=== PATIENT | male | born 1965 | race Caucasian/White ===

== ENCOUNTER → 2019-12-03 08:24 | Outpatient (CLI) | payer OTHER, SELFPAY ==
[2019-11-28 08:59] VITALS: BMI 38.2
--- NOTE | 2019-12-03 08:41 | RAD_ITS ---
STUDY: X-RAY - LEFT FOOT CLINICAL: Male, 54 years old. ulcer in left foot. patient states numbness. TECHNIQUE: 3 view(s) of the foot. COMPARISON: 03-27-12. FINDINGS: No definite acute abnormality. 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 Since previous exam there has been thickening of the distal shaft of the fourth metatarsal consistent with healed fracture. No definite fractures, dislocations, or focal destructive lesions. No significant degenerative changes. No gross acute abnormality of the soft tissues. RAD/Foot min 3 Views IMPRESSION: No definite acute abnormality. Electronically Signed: Kip Carver MD at 17:58 EDT , Service support ,
--- NOTE | 2019-12-03 08:50 | RAD_ITS ---
STUDY: X-RAY - RIGHT FOOT CLINICAL: Male, 54 years old. ulcer in right foot. patient states numbess TECHNIQUE: 3 view(s) of the foot. COMPARISON: None. FINDINGS: Normal talus, calcaneus, and tarsal bones. Normal visualized subtalar, talonavicular, calcaneocuboid, tarsal and tarsometatarsal articulations. Normal metatarsi. There is degenerative arthrosis of the metatarsophalangeal joint of the hallux . Normal tibial and fibular sesamoid bones. Normal interphalangeal joint of the great toe. Normal phalanges of the great toe. Normal second through fifth metatarsophalangeal joints. Normal interphalangeal joints and phalanges of the lesser toes. The soft tissue structures are unremarkable. There is no demonstrated fracture. RAD/Foot min 3 Views IMPRESSION: No acute fractures or dislocations. Degenerative changes of the first metatarsophalangeal joint. Electronically Signed: Kip Carver MD at 19:24 EDT , Service support ,
[2019-12-03 10:05] LABS: Absolute Lymphocyte Count 1.97 X10^3/uL (0.83-4.51); Basophil# 0.08 X10^3/uL; Eosinophil# 0.29 X10^3/uL; Eosinophils% 3.6 % (0-5); Hematocrit 47.2 % (40-54); Hemoglobin 15.3 g/dL (13.0-16.5); Lymphocyte # 1.97 X10^3/ul (4.0); Lymphocyte % 24.7 % (19-41); Mean Corp Hgb Conc 32.4 g/dL (32-36); Mean Corpuscular Hgb 29.4 pg (27.0-32.0); Mean Corpuscular Volume 90.6 fL (80-94); Mean Platelet Vol. 9.6 fl (6.2-12.0); Monocyte# 0.59 X10^3/uL; Monocyte% 7.4 % (0-10); NRBC Flagged by Analyzer 0 % (0-5); Neutrophil # 4.97 X10^3/uL (2.7-7.7); Neutrophil % 62.4 % (47-70); Platelet Count 246 K/mm3 (150-450); RBC Distribution Width CV 12.8 % (11.6-14.6); RBC Distribution Width SD 41.4 fl (35.1-43.9); Red Blood Count 5.21 M/mm3 (4.6-6.2)
[2019-12-03 10:36] LABS: Hemoglobin A1c 7.9 % (3.8-5.6)
[2019-12-03 10:37] LABS: ALB/GLOB Ratio 1.1 RATIO (0.9-2.4); AST(SGOT) 23 U/L (15-37); Alanine Aminotransfer ALT/SGPT 40 U/L (16-61); Albumin, Serum 4.1 g/dL (3.2-5.0); Alkaline Phosphatase 123 U/L (45-117); Anion Gap 4 (5-15); BUN 30 mg/dL (7-18); Calcium,Total 9.3 mg/dL (8.5-10.1); Chloride 104 mmol/L (98-107); Creatinine, Serum 1.43 mg/dL (0.70-1.30); EST Glomerular Filtration Rate 55 mL/min (>60); Est Glom Filt Rate - Afr Amer 67 mL/min (>60); Globulin 3.8 g/dL (2.2-4.2); Glucose 142 mg/dL (74-106); Potassium 4.7 mmol/L (3.5-5.1); Protein, Total 7.9 g/dL (6.4-8.2); Sodium Level 137 mmol/L (136-145)
== END ==
PROVIDERS: PCP Student in an Organized Health Care Education/Training Program; Referring Provider Podiatrist; Visit Provider Podiatrist
DX: E11.621 Type 2 diabetes mellitus with foot ulcer (principal); L97.529 Non-pressure chronic ulcer of other part of left foot with unspecified severity; L97.519 Non-pressure chronic ulcer of other part of right foot with unspecified severity
CPT/HCPCS: 36415; 73630; 80053; 83036; 85025

== ENCOUNTER 2019-12-05 14:00 | Outpatient (RCR) | payer OTHER, SELFPAY ==
[2019-01-01 09:09] VITALS: BMI 38.5
[2019-11-28 08:59] VITALS: BP 169/78; PULSE 90; RESP 18; TEMP 36.1; BMI 38.2
--- NOTE | 2019-11-28 09:33 | HP.PCM_ITS ---
(1) Ulcer of right foot with fat layer exposed Status: Acute Code(s): L97.512 - Non-pressure chronic ulcer of other part of right foot with fat layer exposed (2) Ulcer of left foot with fat layer exposed Status: Acute Code(s): L97.522 - Non-pressure chronic ulcer of other part of left foot with fat layer exposed (3) Type 2 diabetes mellitus with diabetic polyneuropathy Status: Acute Code(s): E11.42 - Type 2 diabetes mellitus with diabetic polyneuropathy (4) Venous insufficiency Status: Acute Code(s): I87.2 - Venous insufficiency (chronic) (peripheral) (5) Leg edema Status: Acute Code(s): R60.0 - Localized edema History of Present Illness Date of Service: 12/01/19 Chief Complaint: Blisters on both feet History of Wound: 54-year-old male presents to the wound healing center for wounds on both forefeet. He relates that he wore sandals on November 082019 and developed blisters. These drained and he has been treating them with antibiotic ointment and basic dressing. He is eager to return to work. These are uncomfortable. He denies current fever, chill, nausea, vomiting. He denies other traumatic incident or burn. He does have neuropathy with some lack of sensation to his feet. He does have some cramping in his legs when he walks and is not clear if this is claudication. He does have some lower extremity edema. He was referred from the foot and ankle center. Past Medical History Past Medical History: Chronic Problems (Last Reviewed 01/01/19 @ 09:04 by JEFFREY Swanson) Type II diabetes mellitus (Chronic) History of seizures as a child (Chronic) Hypertension (Chronic) Obesity (Chronic) Past Medical History: Diabetes with neuropathy, pancreatitis history, h ypertension Surgical History: cholecystectomy Allergies/Adverse Reactions: Allergies acetaminophen [From Percocet] Adverse Reaction (Verified 12/26/18 15:23) Nausea oxycodone [From Percocet] Adverse Reaction (Verified 12/26/18 15:23) Nausea Home Medications: Ambulatory Orders Medication Instructions Recorded Insulin Detemir [Levemir FlexPen] 32 units SC QHS 10/01/14 Insulin Lispro [Humalog KwikPen] 8 unit SQ PRN PRN 10/01/14 Nifedipine [Nifedipine ER] 90 mg PO DAILY 10/01/14 Ramipril [Altace] 10 mg PO DAILY 10/01/14 Ascorbic Acid [Vitamin C] 500 mg PO DAILY 04/29/17 Aspirin [Aspir-Low] 81 mg PO DAILY 04/29/17 Atorvastatin Calcium [Lipitor] 10 mg PO DAILY 04/29/17 Diphenhydramine HCl [Benadryl 25 mg PO PRN PRN 04/29/17 Allergy] Dulaglutide [Trulicity] 0.75 mg SQ ENCINAS 04/29/17 Multivitamin [Multiple Vitamins] 1 ea PO DAILY 04/29/17 - Family History Maternal No pertinent history Paternal No pertinent history Smoking Status: Never smoker Review of Systems Constitutional: Denies: Chills, Fever, Fatigue Cardiovascular: Denies: Chest Pain Respiratory: Denies: Cough, Shortness of Breath Gastrointestinal: Denies: Nausea, Vomiting Musculoskeletal: Reports: Foot Pain. Denies: Leg Pain Skin: Reports: Skin Changes, Wounds Neurological: Reports: Numbness. Denies: Incoordination - Physical Exam Vital Signs Temp Pulse Resp BP 97 F L 90 18 169/78 H 11/28/19 08:59 11/28/19 08:59 11/28/19 08:59 11/28/19 08:59 General: Alert, Oriented x3, Cooperative, No apparent distress HEENT: Atraumatic Extremities: No cyanosis, Capillary Refill Less than 3 Seconds, No Calf Tenderness - Negative Nash and Dorsey sign bilateral, Diminished Peripheral Pulses - Weak DP bilateral and nonpalpable PT bilateral, Edema - Bilateral lower extremity with some mild hyperpigmentation. Lack of hair to lower two thirds of leg and feet, - - Bilateral lower extremity compartments remain soft. Active range of motion digits x10 noted. Active range of motion normal to ankle bilateral. Skin: Ulcer/ Wound - No purulence, erythema, streaking, odor, infection. There is fibrous granular ulcers that appear dry to multiple sites on bilateral forefoot. There is no deep exposed bone or joint. The skin is atrophic and hairless. There is no necrosis or eschar. Wound Measurements and Assessment WC - Nurse 1 - General Ulcer Measurement Start: 11/28/19 08:12 Freq: Status: Active Protocol: Activity Type Activity Date Activity User E-Sign Co-Sign Detail Recorded Client Recorded Date Recorded By Document 11/28/19 08:46 RB [id number] 11/28/19 08:57 RB 11/28/19 08:46 Wound Center Nurse 1 [Ulcer Assessment] 2. left hallux -Combined with other wound No -Current Size (cm) - Length 4 -Current Size (cm) - Width 11 -Current Size (cm) - Depth 0.1 -Total Square Cm 44 -Photo Taken Yes -Tunneling No -Undermining/Tunneling No -Circular Undermining No -Exudate Amt Medium -Exudate Type Serosanguineous -Wound Margin Flat & Intact -Granulation Amt Small (1-33%) -Granulation Quality [place] -Slough/Fibrin Yes -Necrosis Amt Large (67-100%) -Necrotic Tissue Type Adherent Slough -Structure Exposed N/A -Texture (Susana-wound Skin Appearance) Excoriation -Moisture (Susana-wound Skin Appearance Maceration ) -Color (Susana-wound Skin Appearance) Assessed -Temperature (Susana-wound Skin No Abnormality Appearance) (Pt Warm) -Tenderness on Palpation (Susana-wound No Skin Appearance) -Ulcer Cleansing Wound Cleanser -Foul Odor after Cleansing No -Anesthetic Used 4% Lidocaine Solution 1. R Great toe dorsal -Combined with other wound No -Current Size (cm) - Length 0.6 -Current Size (cm) - Width 0.7 -Current Size (cm) - Depth 0.1 -Total Square Cm 0.42 -Photo Taken Yes -Tunneling No -Undermining/Tunneling No -Circular Undermining No -Exudate Amt Small -Exudate Type Serosanguineous -Wound Margin Flat & Intact -Granulation Amt Medium (34-66%) -Granulation Quality [place] -Slough/Fibrin Yes -Necrosis Amt Small (1-33%) -Necrotic Tissue Type Adherent Slough -Structure Exposed N/A -Texture (Susana-wound Skin Appearance) Assessed -Moisture (Susana-wound Skin Appearance Assessed ) -Color (Susana-wound Skin Appearance) Assessed -Temperature (Susana-wound Skin No Abnormality Appearance) (Pt Warm) -Tenderness on Palpation (Susana-wound No Skin Appearance) -Ulcer Cleansing Wound Cleanser -Foul Odor after Cleansing No -Anesthetic Used 4% Lidocaine Solution [Edema Assessment] -Lower Limb Edema Present Yes -Right Calf (cm) 42 -Right Ankle (cm) 24.5 -Left Calf (cm) 40.5 -Left Ankle (cm) 23.5 WC - Nurse 2 - General Ulcer CM Notes Start: 11/28/19 08:12 Freq: Status: Active Protocol: Activity Type Activity Date Activity User E-Sign Co-Sign Detail Recorded Client Recorded Date Recorded By Document 11/28/19 09:20 [email or web address] [id number] 11/28/19 09:29 KASEY 11/28/19 09:20 Wound Center Nurse 2 [Procedure/Treatment] 6-left 5th toe -Time 09:28 -Correct Patient Yes -Correct Side, Site, Position Yes -Correct Procedure Yes -Procedure Performed Yes -Type of Procedure Debridement -Clinical Debridement Subcutaneous -Post Debridement Size (cm) - Length 2.3 -Post Debridement Size (cm) - Width 1.8 -Post Debridement Size (cm) - Depth 0.1 -Total Square (cm) 4.14 -Wound/Ulcer Outcome Not Healed -Ulcer Cleansing Rinsed/ Irrigated with Saline -Foul Odor after Cleansing No -Bioengineered Tissue No -Bleeding Controlled with Pressure -Offloading Yes -Type of Offloading Surgical Shoe -Treatment Response Procedure Tolerated Well 5-left 4th toe -Time 09:27 -Correct Patient Yes -Correct Side, Site, Position Yes -Correct Procedure Yes -Procedure Performed Yes -Type of Procedure Debridement -Clinical Debridement Subcutaneous -Post Debridement Size (cm) - Length 2.5 -Post Debridement Size (cm) - Width 1.8 -Post Debridement Size (cm) - Depth 0.1 -Total Square (cm) 4.50 -Wound/Ulcer Outcome Not Healed -Ulcer Cleansing Rinsed/ Irrigated with Saline -Foul Odor after Cleansing No -Bioengineered Tissue No -Bleeding Controlled with Pressure -Offloading Yes -Type of Offloading Surgical Shoe -Treatment Response Procedure Tolerated Well 4-left 3rd toe -Time 09:27 -Correct Patient Yes -Correct Side, Site, Position Yes -Correct Procedure Yes -Procedure Performed Yes -Type of Procedure Debridement -Clinical Debridement Subcutaneous -Post Debridement Size (cm) - Length 3.6 -Post Debridement Size (cm) - Width 1.9 -Post Debridement Size (cm) - Depth 0.1 -Total Square (cm) 6.84 -Wound/Ulcer Outcome Not Healed -Ulcer Cleansing Rinsed/ Irrigated with Saline -Foul Odor after Cleansing No -Bioengineered Tissue No -Bleeding Controlled with Pressure -Offloading Yes -Type of Offloading Surgical Shoe -Treatment Response Procedure Tolerated Well 3-left 2nd toe -Time 09:26 -Correct Patient Yes -Correct Side, Site, Position Yes -Correct Procedure Yes -Procedure Performed Yes -Type of Procedure Debridement -Clinical Debridement Subcutaneous -Post Debridement Size (cm) - Length 3.4 -Post Debridement Size (cm) - Width 1.7 -Post Debridement Size (cm) - Depth 0.1 -Total Square (cm) 5.78 -Wound/Ulcer Outcome Not Healed -Ulcer Cleansing Rinsed/ Irrigated with Saline -Foul Odor after Cleansing No -Bioengineered Tissue No -Bleeding Controlled with Pressure -Offloading Yes -Type of Offloading Surgical Shoe -Treatment Response Procedure Tolerated Well 2. left hallux -Time 09:22 -Correct Patient Yes -Correct Side, Site, Position Yes -Correct Procedure Yes -Procedure Performed Yes -Type of Procedure Debridement -Clinical Debridement Subcutaneous -Post Debridement Size (cm) - Length 2.2 -Post Debridement Size (cm) - Width 2.5 -Post Debridement Size (cm) - Depth 0.1 -Total Square (cm) 5.50 -Wound/Ulcer Outcome Not Healed -Ulcer Cleansing Rinsed/ Irrigated with Saline -Foul Odor after Cleansing No -Bioengineered Tissue No -Bleeding Controlled with Pressure -Offloading Yes -Type of Offloading Surgical Shoe -Treatment Response Procedure Tolerated Well 1. R Great toe dorsal -Time 09:25 -Correct Patient Yes -Correct Side, Site, Position Yes -Correct Procedure Yes -Procedure Performed Yes -Type of Procedure Debridement -Clinical Debridement Subcutaneous -Post Debridement Size (cm) - Length 0.7 -Post Debridement Size (cm) - Width 0.7 -Post Debridement Size (cm) - Depth 0.1 -Total Square (cm) 0.49 -Wound/Ulcer Outcome Not Healed -Ulcer Cleansing Rinsed/ Irrigated with Saline -Foul Odor after Cleansing No -Bioengineered Tissue No -Bleeding Controlled with Pressure -Offloading Yes -Type of Offloading Surgical Shoe -Treatment Response Procedure Tolerated Well [See Physician Procedure note for Specifics] Pain Scale: 0-10 Numeric [Pain] -Is Patient Pain Free? Yes Musculoskeletal: No Tenderness to Palpation of Joints or Extremities, Muscle Wasting Neurological: - - Lack of normal epicritic sensation to light touch is consistent with his neuropathy status Psych/Mental Status: Normal Affect, Appropriate Debridement Note Post-Debridement Measurements/Treatment WC - Nurse 2 - General Ulcer CM Notes Start: 11/28/19 08:12 Freq: Status: Active Protocol: Activity Type Activity Date Activity User E-Sign Co-Sign Detail Recorded Client Recorded Date Recorded By Document 11/28/19 09:20 [email or web address] [id number] 11/28/19 09:29 KASEY 11/28/19 09:20 Wound Center Nurse 2 6-left 5th toe -Time 09:28 -Correct Patient Yes -Correct Side, Site, Position Yes -Correct Procedure Yes -Procedure Performed Yes -Type of Procedure Debridement -Clinical Debridement Subcutaneous -Post Debridement Size (cm) - Length 2.3 -Post Debridement Size (cm) - Width 1.8 -Post Debridement Size (cm) - Depth 0.1 -Total Square (cm) 4.14 -Wound/Ulcer Outcome Not Healed -Ulcer Cleansing Rinsed/ Irrigated with Saline -Foul Odor after Cleansing No -Bioengineered Tissue No -Bleeding Controlled with Pressure -Offloading Yes -Type of Offloading Surgical Shoe -Treatment Response Procedure Tolerated Well 5-left 4th toe -Time 09:27 -Correct Patient Yes -Correct Side, Site, Position Yes -Correct Procedure Yes -Procedure Performed Yes -Type of Procedure Debridement -Clinical Debridement Subcutaneous -Post Debridement Size (cm) - Length 2.5 -Post Debridement Size (cm) - Width 1.8 -Post Debridement Size (cm) - Depth 0.1 -Total Square (cm) 4.50 -Wound/Ulcer Outcome Not Healed -Ulcer Cleansing Rinsed/ Irrigated with Saline -Foul Odor after Cleansing No -Bioengineered Tissue No -Bleeding Controlled with Pressure -Offloading Yes -Type of Offloading Surgical Shoe -Treatment Response Procedure Tolerated Well 4-left 3rd toe -Time 09:27 -Correct Patient Yes -Correct Side, Site, Position Yes -Correct Procedure Yes -Procedure Performed Yes -Type of Procedure Debridement -Clinical Debridement Subcutaneous -Post Debridement Size (cm) - Length 3.6 -Post Debridement Size (cm) - Width 1.9 -Post Debridement Size (cm) - Depth 0.1 -Total Square (cm) 6.84 -Wound/Ulcer Outcome Not Healed -Ulcer Cleansing Rinsed/ Irrigated with Saline -Foul Odor after Cleansing No -Bioengineered Tissue No -Bleeding Controlled with Pressure -Offloading Yes -Type of Offloading Surgical Shoe -Treatment Response Procedure Tolerated Well 3-left 2nd toe -Time 09:26 -Correct Patient Yes -Correct Side, Site, Position Yes -Correct Procedure Yes -Procedure Performed Yes -Type of Procedure Debridement -Clinical Debridement Subcutaneous -Post Debridement Size (cm) - Length 3.4 -Post Debridement Size (cm) - Width 1.7 -Post Debridement Size (cm) - Depth 0.1 -Total Square (cm) 5.78 -Wound/Ulcer Outcome Not Healed -Ulcer Cleansing Rinsed/ Irrigated with Saline -Foul Odor after Cleansing No -Bioengineered Tissue No -Bleeding Controlled with Pressure -Offloading Yes -Type of Offloading Surgical Shoe -Treatment Response Procedure Tolerated Well 2. left hallux -Time 09:22 -Correct Patient Yes -Correct Side, Site, Position Yes -Correct Procedure Yes -Procedure Performed Yes -Type of Procedure Debridement -Clinical Debridement Subcutaneous -Post Debridement Size (cm) - Length 2.2 -Post Debridement Size (cm) - Width 2.5 -Post Debridement Size (cm) - Depth 0.1 -Total Square (cm) 5.50 -Wound/Ulcer Outcome Not Healed -Ulcer Cleansing Rinsed/ Irrigated with Saline -Foul Odor after Cleansing No -Bioengineered Tissue No -Bleeding Controlled with Pressure -Offloading Yes -Type of Offloading Surgical Shoe -Treatment Response Procedure Tolerated Well 1. R Great toe dorsal -Time 09:25 -Correct Patient Yes -Correct Side, Site, Position Yes -Correct Procedure Yes -Procedure Performed Yes -Type of Procedure Debridement -Clinical Debridement Subcutaneous -Post Debridement Size (cm) - Length 0.7 -Post Debridement Size (cm) - Width 0.7 -Post Debridement Size (cm) - Depth 0.1 -Total Square (cm) 0.49 -Wound/Ulcer Outcome Not Healed -Ulcer Cleansing Rinsed/ Irrigated with Saline -Foul Odor after Cleansing No -Bioengineered Tissue No -Bleeding Controlled with Pressure -Offloading Yes -Type of Offloading Surgical Shoe -Treatment Response Procedure Tolerated Well Pain Scale: 0-10 Numeric Is Patient Pain Free? Yes Assessment/Plan Assessment: Ulcer right hallux fat layer exposed, no infection. Ulcer left hallux, second, third, fourth, fifth dorsal toes with fat layer exposed, no infection. Diabetes with neuropathy. Peripheral vascular disease work-up in process. Venous insufficiency work-up in process. Bilateral lower extremity edema. Malnutrition suspected Plan: I reviewed and discussed his case. I reviewed his prior documentation from the foot and ankle center and the referral is appreciated. Subcutaneous excisional debridement was performed as noted in the clinical panel. This was performed to remove fibrous, devitalized subcutaneous, biofilm, and slough tissue. Pressure was applied to maintain hemostasis. I recommend strict offloading with surgical shoe use. He has already been fitted with these devices and presents with them today. He is reassured there are no local signs of infection. He will monitor for signs of redness, streaking, or other illness. I would like to obtain an x-ray to evaluate for any underlying contributing conditions. An order was provided. I also recommend additional diagnostic data including labs (CBC, CMP, hemoglobin A1c), noninvasive vascular lower extremity studies, venous Doppler with reflux evaluation. To control edema with Tubigrip. To wash daily with soap and water and to change dressing with silver product whether that is silver cell or Aquacel Ag. He understands additional advanced wound healing products or other wound products recommendations will be implemented pending his initial progress and diagnostic data results. I would like to see him on a weekly basis. To return to clinic at the wound healing center next week. I answered all his questions.
--- NOTE | 2019-12-05 12:51 | VDLE_ITS ---
Reason For Study: PVD RIGHT LEFT CFV is compressible, spontaneous, phasic, CFV is compressible, spontaneous, phasic, competent and demonstrates normal competent, and demonstrates normal augmentation. augmentation. FV is compressible, spontaneous, phasic, FV is compressible, spontaneous, phasic, competent and demonstrates normal competent and demonstrates normal augmentation. augmentation. POP V is compressible, spontaneous, phasic, POP V is compressible, spontaneous, phasic, competent and demonstrates normal competent and demonstrates normal augmentation. augmentation. T/P Trunk is compressible. T/P Trunk is compressible. PTV is compressible. PTV is compressible. RT PerV is compressible. LT PerV is compressible. SFJ is competent and measures 0.69 x 0.71 cm. SFJ is competent and measures 0.77 x 0.76 cm. GSV proximal thigh measures 0.43 x 0.43 cm. GSV proximal thigh measures 0.54 x 0.59 cm. GSV above knee is INCOMPETENT for greater GSV at knee measures 0.54 x 0.57 cm. than 0.5 seconds. GSV INCOMPETENT throughout for greater than GSV at knee measures 0.35 x 0.36 cm. 0.5 seconds. GSV below knee is competent. SSV at junction is competent and measures SSV at junction is competent and measures 0.27 x 0.26 cm. 0.42 x 0.45 cm. Procedure Exam performed in department. A preliminary report was called and/or faxed to . Interpretation Summary Deep veins of the lower extremities are bilaterally patent and compressible segmentally. There is no evidence of deep vein thrombosis on either side. Valvular competence appears intact within the proximal deep venous systems bilaterally. The great saphenous veins appear bilaterally patent and compressible segmentally. Sapheno-femoral junctions are bilaterally competent . The right great saphenous vein appears incompetent above the knee. The right great saphenous vein appears competent below the knee. The left great saphenous vein appears segmentally incompetent. Small saphenous veins are patent and competent bilaterally. Ordering Physician: Haylie Szymanski Referring Physician: Gerald Tee Performed By: Federica Hart RVT
--- NOTE | 2019-12-05 12:52 | ART_ITS ---
Reason For Study: PVD Procedure A bilateral lower extremity continuous wave Doppler with analog waveform analysis,segmental pressures,and ankle brachial indexes without exercise. Left Segmental Pressures Left brachial= 153mmHg. Left posterior tibial artery = 150mmHg. Left dorsalis pedis artery = 160mmHg. The left dorsalis pedis waveforms are triphasic. The left posterior tibial artery waveforms are triphasic. Right Segmental Pressures Right brachial= 154mmHg. Right posterior tibial artery = >254mmHg. Right dorsalis pedis artery = >254mmHg. Right digit = 87 mmHg. The right dorsalis pedis waveforms are triphasic. The right posterior tibial artery waveforms are triphasic. Indices The right ankle brachial index by the dorsalis pedis is NC. The right ankle brachial index by the posterior tibial artery is NC. The right digital-brachial index is 0.56. The left ankle brachial index by the dorsalis pedis is 1.04. The left ankle brachial index by the posterior tibial artery is 0.97. Interpretation Summary Triphasic Doppler waveforms are noted at ankle level bilaterally. Pulse-volume recording waveform amplitudes appear diminished at digital level on the right, and not evaluated at digital level on the left due to the presence of a bandage. Pulse-volume recordings appear satisfacory at all other levels bilaterally. The resting right ankle-brachial index could not be determined due to the non- compressibility of the vasculature. The resting left ankle-brachial index is normal. The right digital-brachial index is mildly diminished. The left digital-brachial index was not determined due to the presence of a bandage. There is evidence of arterial calcification at ankle level on the right. Arterial flow appears normal at ankle level bilaterally. There is evidence of mild, distal, small-vessel arterial occlusive disease at digital level on the right. Digital flow was not assessed on the left due to the presence of a bandage. Ordering Physician: Haylie Szymanski Referring Physician: Gerald Tee Performed By: Federica Hart RVT and Student
[2019-12-05 14:30] VITALS: BP 150/72; PULSE 108; RESP 18; TEMP 36.8; BMI 38.2
--- NOTE | 2019-12-05 16:38 | PCM.WC.PN ---
(1) Ulcer of right foot with fat layer exposed Status: Chronic Code(s): L97.512 - Non-pressure chronic ulcer of other part of right foot with fat layer exposed (2) Ulcer of left foot with fat layer exposed Status: Chronic Code(s): L97.522 - Non-pressure chronic ulcer of other part of left foot with fat layer exposed (3) Type 2 diabetes mellitus with diabetic polyneuropathy Status: Acute Code(s): E11.42 - Type 2 diabetes mellitus with diabetic polyneuropathy (4) Venous insufficiency Status: Chronic Code(s): I87.2 - Venous insufficiency (chronic) (peripheral) (5) Leg edema Status: Chronic Code(s): R60.0 - Localized edema (6) Other specified peripheral vascular diseases Status: Suspected Code(s): I73.89 - Other specified peripheral vascular diseases Type of Wound Date of Service: 12/05/19 Chief Complaint: Blisters on both feet History of Wound: 54-year-old male presents to the wound healing center for wounds on both forefeet. He relates that he wore sandals on November 082019 and developed blisters. He denies fever, chill, nausea, vomiting. He has been doing the dressings as advised. He tries to wears offloading open toed surgical shoes at home. He is able to return to work request a work note today. He has not short-term disability options. He obtain his lab work, x-rays, and vascular studies as advised. He would like to review the results. Progress of Wound: Healed right. Left improving - Physical Exam Vital Signs Temp Pulse Resp BP 98.2 F 108 H 18 150/72 H 12/05/19 14:30 12/05/19 14:30 12/05/19 14:30 12/05/19 14:30 General: Alert, Oriented x3, Cooperative, No apparent distress HEENT: Atraumatic Extremities: No cyanosis, Capillary Refill Less than 3 Seconds, No Calf Tenderness, Diminished Peripheral Pulses, Edema - Mild bilateral lower extremity Skin: Ulcer/ Wound - No purulence, erythema, streaking, odor, infection. The adjacent skin is hairless and atrophic. There is full epithelialization to the ulcer on the right foot. The left foot ulcers on each toe have granular and fibrous spaces with no joint or bone exposures. No necrosis or eschar. Wound Measurements and Assessment WC - Nurse 1 - General Ulcer Measurement Start: 11/28/19 08:12 Freq: Status: Active Protocol: Activity Type Activity Date Activity User E-Sign Co-Sign Detail Recorded Client Recorded Date Recorded By Document 12/05/19 14:30 [facility] [id number] 12/05/19 14:42 [facility] 12/05/19 14:30 Wound Center Nurse 1 [Ulcer Assessment] 6-left 5th toe -Combined with other wound No -Current Size (cm) - Length 2.4 -Current Size (cm) - Width 1.3 -Current Size (cm) - Depth 0.2 -Total Square Cm 3.12 -Photo Taken No -Epithelialization Small 1-33% -Tunneling No -Undermining/Tunneling No -Circular Undermining No -Exudate Amt Small -Exudate Type Serosanguineous -Wound Margin Distinct, Outline Attached -Granulation Amt Medium (34-66%) -Granulation Quality [place] -Slough/Fibrin Yes -Necrosis Amt Medium (34-66%) -Necrotic Tissue Type Adherent Slough -Texture (Susana-wound Skin Appearance) Assessed, Scarring -Moisture (Susana-wound Skin Appearance Assessed, ) Maceration -Color (Susana-wound Skin Appearance) Assessed,Palor -Temperature (Susana-wound Skin No Abnormality Appearance) (Pt Warm) -Tenderness on Palpation (Susana-wound No Skin Appearance) -Ulcer Cleansing Rinsed/ Irrigated with Saline -Foul Odor after Cleansing No -Anesthetic Used 5% Lidocaine Gel 5-left 4th toe -Combined with other wound No -Current Size (cm) - Length 2.7 -Current Size (cm) - Width 1.8 -Current Size (cm) - Depth 0.2 -Total Square Cm 4.86 -Photo Taken No -Epithelialization None Present -Tunneling No -Undermining/Tunneling No -Circular Undermining No -Exudate Amt Small -Exudate Type Serosanguineous -Wound Margin Distinct, Outline Attached -Granulation Amt Medium (34-66%) -Granulation Quality [place] -Slough/Fibrin Yes -Necrosis Amt Medium (34-66%) -Necrotic Tissue Type Adherent Slough -Texture (Susana-wound Skin Appearance) Assessed, Scarring -Moisture (Susana-wound Skin Appearance Assessed, ) Maceration -Color (Susana-wound Skin Appearance) Assessed,Palor -Temperature (Susana-wound Skin No Abnormality Appearance) (Pt Warm) -Tenderness on Palpation (Susana-wound No Skin Appearance) -Ulcer Cleansing Rinsed/ Irrigated with Saline -Foul Odor after Cleansing No -Anesthetic Used 5% Lidocaine Gel 4-left 3rd toe -Combined with other wound No -Current Size (cm) - Length 2.6 -Current Size (cm) - Width 1.6 -Current Size (cm) - Depth 0.2 -Total Square Cm 4.16 -Photo Taken No -Epithelialization None Present -Tunneling No -Undermining/Tunneling No -Circular Undermining No -Exudate Amt Small -Exudate Type Serosanguineous -Wound Margin Distinct, Outline Attached -Granulation Amt Medium (34-66%) -Granulation Quality [place] -Slough/Fibrin Yes -Necrosis Amt Medium (34-66%) -Necrotic Tissue Type Adherent Slough -Texture (Susana-wound Skin Appearance) Assessed, Scarring -Moisture (Susana-wound Skin Appearance Assessed, ) Maceration -Color (Susana-wound Skin Appearance) Assessed,Palor -Temperature (Susana-wound Skin No Abnormality Appearance) (Pt Warm) -Tenderness on Palpation (Susana-wound No Skin Appearance) -Ulcer Cleansing Rinsed/ Irrigated with Saline -Foul Odor after Cleansing No -Anesthetic Used 5% Lidocaine Gel 3-left 2nd toe -Combined with other wound No -Current Size (cm) - Length 3.4 -Current Size (cm) - Width 0.8 -Current Size (cm) - Depth 0.2 -Total Square Cm 2.72 -Photo Taken No -Epithelialization None Present -Tunneling No -Undermining/Tunneling No -Circular Undermining No -Exudate Amt Small -Exudate Type Serosanguineous -Wound Margin Distinct, Outline Attached -Granulation Amt Medium (34-66%) -Granulation Quality [place] -Slough/Fibrin Yes -Necrosis Amt Medium (34-66%) -Necrotic Tissue Type Adherent Slough -Texture (Susana-wound Skin Appearance) Assessed, Scarring -Moisture (Susana-wound Skin Appearance Assessed, ) Maceration -Color (Susana-wound Skin Appearance) Assessed,Pal[place] -Temperature (Susana-wound Skin No Abnormality Appearance) (Pt Warm) -Tenderness on Palpation (Susana-wound No Skin Appearance) -Ulcer Cleansing Rinsed/ Irrigated with Saline -Foul Odor after Cleansing No -Anesthetic Used 5% Lidocaine Gel 2. left hallux -Combined with other wound No -Current Size (cm) - Length 2.1 -Current Size (cm) - Width 1.6 -Current Size (cm) - Depth 0.2 -Total Square Cm 3.36 -Photo Taken No -Epithelialization None Present -Tunneling No -Undermining/Tunneling No -Circular Undermining No -Exudate Amt Small -Exudate Type Serosanguineous -Wound Margin Distinct, Outline Attached -Granulation Amt Medium (34-66%) -Granulation Quality [place] -Slough/Fibrin Yes -Necrosis Amt Medium (34-66%) -Necrotic Tissue Type Adherent Slough -Texture (Susana-wound Skin Appearance) Assessed, Scarring -Moisture (Susana-wound Skin Appearance Assessed, ) Maceration -Color (Susana-wound Skin Appearance) Assessed,[place] -Temperature (Susana-wound Skin No Abnormality Appearance) (Pt Warm) -Tenderness on Palpation (Susana-wound No Skin Appearance) -Ulcer Cleansing Rinsed/ Irrigated with Saline -Foul Odor after Cleansing No -Anesthetic Used 5% Lidocaine Gel 1. R Great toe dorsal -Combined with other wound No -Current Size (cm) - Length 0.1 -Current Size (cm) - Width 0.1 -Current Size (cm) - Depth 0.1 -Total Square Cm 0.01 -Photo Taken No -Epithelialization None Present -Tunneling No -Undermining/Tunneling No -Circular Undermining No -Exudate Amt Small -Exudate Type Serosanguineous -Wound Margin Distinct, Outline Attached -Granulation Amt Small (1-33%) -Granulation Quality [place] -Slough/Fibrin Yes -Necrosis Amt Large (67-100%) -Necrotic Tissue Type Adherent Slough -Texture (Susana-wound Skin Appearance) Assessed, Scarring -Moisture (Susana-wound Skin Appearance Assessed,Dry/ ) Scaly -Color (Susana-wound Skin Appearance) Assessed -Temperature (Susana-wound Skin No Abnormality Appearance) (Pt Warm) -Tenderness on Palpation (Susana-wound No Skin Appearance) -Ulcer Cleansing Rinsed/ Irrigated with Saline -Foul Odor after Cleansing No -Anesthetic Used 5% Lidocaine Gel WC - Nurse 2 - General Ulcer CM Notes Start: 11/28/19 08:12 Freq: Status: Active Protocol: Activity Type Activity Date Activity User E-Sign Co-Sign Detail Recorded Client Recorded Date Recorded By Document 12/05/19 15:19 KASEY [id number] 12/05/19 15:22 KASEY 12/05/19 15:19 Wound Center Nurse 2 [Procedure/Treatment] 6-left 5th toe -Time 15:20 -Correct Patient Yes -Correct Side, Site, Position Yes -Correct Procedure Yes -Procedure Performed Yes -Type of Procedure Debridement -Clinical Debridement Subcutaneous -Post Debridement Size (cm) - Length 2.5 -Post Debridement Size (cm) - Width 1.3 -Post Debridement Size (cm) - Depth 0.2 -Total Square (cm) 3.25 -Wound/Ulcer Outcome Not Healed -Ulcer Cleansing Rinsed/ Irrigated with Saline -Foul Odor after Cleansing No -Bioengineered Tissue No -Bleeding Controlled with Pressure -Offloading Yes -Type of Offloading Surgical Shoe -Treatment Response Procedure Tolerated Well 5-left 4th toe -Time 15:20 -Correct Patient Yes -Correct Side, Site, Position Yes -Correct Procedure Yes -Procedure Performed Yes -Type of Procedure Debridement -Clinical Debridement Subcutaneous -Post Debridement Size (cm) - Length 2.8 -Post Debridement Size (cm) - Width 1.8 -Post Debridement Size (cm) - Depth 0.2 -Total Square (cm) 5.04 -Wound/Ulcer Outcome Not Healed -Ulcer Cleansing Rinsed/ Irrigated with Saline -Foul Odor after Cleansing No -Bioengineered Tissue No -Bleeding Controlled with Pressure -Offloading Yes -Type of Offloading Surgical Shoe -Treatment Response Procedure Tolerated Well 4-left 3rd toe -Time 15:20 -Correct Patient Yes -Correct Side, Site, Position Yes -Correct Procedure Yes -Procedure Performed Yes -Type of Procedure Debridement -Clinical Debridement Subcutaneous -Post Debridement Size (cm) - Length 2.6 -Post Debridement Size (cm) - Width 1.7 -Post Debridement Size (cm) - Depth 0.2 -Total Square (cm) 4.42 -Wound/Ulcer Outcome Not Healed -Ulcer Cleansing Rinsed/ Irrigated with Saline -Foul Odor after Cleansing No -Bioengineered Tissue No -Bleeding Controlled with Pressure -Offloading Yes -Type of Offloading Surgical Shoe -Treatment Response Procedure Tolerated Well 3-left 2nd toe -Time 15:21 -Correct Patient Yes -Correct Side, Site, Position Yes -Procedure Performed Yes -Type of Procedure Debridement -Clinical Debridement Subcutaneous -Post Debridement Size (cm) - Length 3.5 -Post Debridement Size (cm) - Width 0.8 -Post Debridement Size (cm) - Depth 0.2 -Total Square (cm) 2.80 -Wound/Ulcer Outcome Not Healed -Ulcer Cleansing Rinsed/ Irrigated with Saline -Foul Odor after Cleansing No -Bioengineered Tissue No -Bleeding Controlled with Pressure -Offloading Yes -Type of Offloading Surgical Shoe -Treatment Response Procedure Tolerated Well 2. left hallux -Time 15:21 -Correct Patient Yes -Correct Side, Site, Position Yes -Correct Procedure Yes -Procedure Performed Yes -Type of Procedure Debridement -Clinical Debridement Subcutaneous -Post Debridement Size (cm) - Length 2.2 -Post Debridement Size (cm) - Width 1.6 -Post Debridement Size (cm) - Depth 0.2 -Total Square (cm) 3.52 -Wound/Ulcer Outcome Not Healed -Ulcer Cleansing Rinsed/ Irrigated with Saline -Foul Odor after Cleansing No -Bioengineered Tissue No -Bleeding Controlled with Pressure -Offloading Yes -Type of Offloading Surgical Shoe -Treatment Response Procedure Tolerated Well 1. R Great toe dorsal -Correct Patient No -Correct Side, Site, Position No -Correct Procedure No -Procedure Performed No -Post Debridement Size (cm) - Length 0 -Post Debridement Size (cm) - Width 0 -Post Debridement Size (cm) - Depth 0 -Total Square (cm) 0 -Wound/Ulcer Outcome Healed- Epithelialized [See Physician Procedure note for Specifics] Pain Scale: 0-10 Numeric [Pain] -Is Patient Pain Free? Yes Musculoskeletal: No Tenderness to Palpation of Joints or Extremities, Muscle Wasting Neurological: - - Lack lack of epicritic sensation light touch is consistent with neuropathy status Psych/Mental Status: Normal Affect, Appropriate Debridement Note Post-Debridement Measurements/Treatment WC - Nurse 2 - General Ulcer CM Notes Start: 11/28/19 08:12 Freq: Status: Active Protocol: Activity Type Activity Date Activity User E-Sign Co-Sign Detail Recorded Client Recorded Date Recorded By Document 11/28/19 09:20 JF [id number] 11/28/19 09:29 Document 12/05/19 15:19 JF [id number] 12/05/19 15:22 11/28/19 12/05/19 09:20 15:19 Wound Center Nurse 2 6-left 5th toe -Time 09:28 15:20 -Correct Patient Yes Yes -Correct Side, Site, Position Yes Yes -Correct Procedure Yes Yes -Procedure Performed Yes Yes -Type of Procedure Debridement Debridement -Clinical Debridement Subcutaneous Subcutaneous -Post Debridement Size (cm) - Length 2.3 2.5 -Post Debridement Size (cm) - Width 1.8 1.3 -Post Debridement Size (cm) - Depth 0.1 0.2 -Total Square (cm) 4.14 3.25 -Wound/Ulcer Outcome Not Healed Not Healed -Ulcer Cleansing Rinsed/ Rinsed/ Irrigated with Irrigated with Saline Saline -Foul Odor after Cleansing No No -Bioengineered Tissue No No -Bleeding Controlled with Pressure Pressure -Offloading Yes Yes -Type of Offloading Surgical Shoe Surgical Shoe -Treatment Response Procedure Procedure Tolerated Well Tolerated Well 5-left 4th toe -Time 09:27 15:20 -Correct Patient Yes Yes -Correct Side, Site, Position Yes Yes -Correct Procedure Yes Yes -Procedure Performed Yes Yes -Type of Procedure Debridement Debridement -Clinical Debridement Subcutaneous Subcutaneous -Post Debridement Size (cm) - Length 2.5 2.8 -Post Debridement Size (cm) - Width 1.8 1.8 -Post Debridement Size (cm) - Depth 0.1 0.2 -Total Square (cm) 4.50 5.04 -Wound/Ulcer Outcome Not Healed Not Healed -Ulcer Cleansing Rinsed/ Rinsed/ Irrigated with Irrigated with Saline Saline -Foul Odor after Cleansing No No -Bioengineered Tissue No No -Bleeding Controlled with Pressure Pressure -Offloading Yes Yes -Type of Offloading Surgical Shoe Surgical Shoe -Treatment Response Procedure Procedure Tolerated Well Tolerated Well 4-left 3rd toe -Time 09:27 15:20 -Correct Patient Yes Yes -Correct Side, Site, Position Yes Yes -Correct Procedure Yes Yes -Procedure Performed Yes Yes -Type of Procedure Debridement Debridement -Clinical Debridement Subcutaneous Subcutaneous -Post Debridement Size (cm) - Length 3.6 2.6 -Post Debridement Size (cm) - Width 1.9 1.7 -Post Debridement Size (cm) - Depth 0.1 0.2 -Total Square (cm) 6.84 4.42 -Wound/Ulcer Outcome Not Healed Not Healed -Ulcer Cleansing Rinsed/ Rinsed/ Irrigated with Irrigated with Saline Saline -Foul Odor after Cleansing No No -Bioengineered Tissue No No -Bleeding Controlled with Pressure Pressure -Offloading Yes Yes -Type of Offloading Surgical Shoe Surgical Shoe -Treatment Response Procedure Procedure Tolerated Well Tolerated Well 3-left 2nd toe -Time 09:26 15:21 -Correct Patient Yes Yes -Correct Side, Site, Position Yes Yes -Correct Procedure Yes -Procedure Performed Yes Yes -Type of Procedure Debridement Debridement -Clinical Debridement Subcutaneous Subcutaneous -Post Debridement Size (cm) - Length 3.4 3.5 -Post Debridement Size (cm) - Width 1.7 0.8 -Post Debridement Size (cm) - Depth 0.1 0.2 -Total Square (cm) 5.78 2.80 -Wound/Ulcer Outcome Not Healed Not Healed -Ulcer Cleansing Rinsed/ Rinsed/ Irrigated with Irrigated with Saline Saline -Foul Odor after Cleansing No No -Bioengineered Tissue No No -Bleeding Controlled with Pressure Pressure -Offloading Yes Yes -Type of Offloading Surgical Shoe Surgical Shoe -Treatment Response Procedure Procedure Tolerated Well Tolerated Well 2. left hallux -Time 09:22 15:21 -Correct Patient Yes Yes -Correct Side, Site, Position Yes Yes -Correct Procedure Yes Yes -Procedure Performed Yes Yes -Type of Procedure Debridement Debridement -Clinical Debridement Subcutaneous Subcutaneous -Post Debridement Size (cm) - Length 2.2 2.2 -Post Debridement Size (cm) - Width 2.5 1.6 -Post Debridement Size (cm) - Depth 0.1 0.2 -Total Square (cm) 5.50 3.52 -Wound/Ulcer Outcome Not Healed Not Healed -Ulcer Cleansing Rinsed/ Rinsed/ Irrigated with Irrigated with Saline Saline -Foul Odor after Cleansing No No -Bioengineered Tissue No No -Bleeding Controlled with Pressure Pressure -Offloading Yes Yes -Type of Offloading Surgical Shoe Surgical Shoe -Treatment Response Procedure Procedure Tolerated Well Tolerated Well 1. R Great toe dorsal -Time 09:25 -Correct Patient Yes No -Correct Side, Site, Position Yes No -Correct Procedure Yes No -Procedure Performed Yes No -Type of Procedure Debridement -Clinical Debridement Subcutaneous -Post Debridement Size (cm) - Length 0.7 0 -Post Debridement Size (cm) - Width 0.7 0 -Post Debridement Size (cm) - Depth 0.1 0 -Total Square (cm) 0.49 0 -Wound/Ulcer Outcome Not Healed Healed- Epithelialized -Ulcer Cleansing Rinsed/ Irrigated with Saline -Foul Odor after Cleansing No -Bioengineered Tissue No -Bleeding Controlled with Pressure -Offloading Yes -Type of Offloading Surgical Shoe -Treatment Response Procedure Tolerated Well Pain Scale: 0-10 Numeric Is Patient Pain Free? Yes Yes Wound debrided: digits 1,2,3,4,5 Laterality: Left Wound Grade/Stage: grade 1 Type of Debridement: Excisional debridement Anesthesia Used: 4% Lidocaine Solution Depth: in the subcutaneous layer Percentage of wound debrided: 100 Tissue Removed: fibrous, devitalized subcutaneous, biofilm, slough Severity: Fat Layer Exposed Amount of bleeding with debridement: Mild Bleeding Controlled with: Pressure Patient tolerated procedure well Assessment/Plan Assessment: Ulcer right hallux -healed today. 2, 3, 4, 5 dorsal tOes with fat layer exposed, no infection. Diabetes with neuropathy. Peripheral vascular disease with arterial calcifications. Venous insufficiency. Bilateral lower extremity edema. Malnutrition suspected Plan: I reviewed and discussed his case. Subcutaneous excisional debridement was performed as noted in the clinical panel. I recommend strict offloading with surgical shoe use. He has already been fitted with these devices and presents with them today. He is reassured there are no local signs of infection. He will monitor for signs of redness, streaking, or other illness. I would like to obtain an x-ray to evaluate for any underlying contributing conditions. Bilateral 3 views of foot x-rays (AP, lateral, oblique) were reviewed without any soft tissue emphysema, foreign body, acute fracture dislocation, osseous destruction or gross edema noted. I also recommend additional diagnostic data including labs (CBC, CMP, hemoglobin A1c). He did not demonstrate any leukocytosis. His albumin was 4.1. His hemoglobin A1c was 7.9%. He did have a decreased GFR. Noninvasive vascular lower extremity studies were reviewed and he has triphasic waveforms at bilateral ankles. Ossification of the vessels at the right ankle level are noted and there are mild occlusive disease of the digits on the right foot. The digital status is not checked on the left foot due to the current wrap to toe ulcers. venous Doppler with reflux evaluation was also performed and reviewed. 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 He does not have evidence of critical limb ischemia. She demonstrates lack of appropriate progress a referral to vascular specialist will be considered. To control edema with Tubigrip. If he can tolerate we can also consider double Tubigrip or a vein specialist referral if he does not demonstrate adequate improvement. To wash daily with soap and water and to change dressing with silver product whether that is silver cell or Aquacel Ag. He understands additional advanced wound healing products or other wound products recommendations will be implemented pending his initial progress and diagnostic data results. I would like to see him on a weekly basis. To return to clinic at the wound healing center next week. A work note was provided with an anticipated return to work date of approximately 2 months. 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 I answered all his questions.
== END 2019-12-07 23:59 ==
LOC: WC 14:00
PROVIDERS: PCP Student in an Organized Health Care Education/Training Program; Referring Provider Podiatrist; Visit Provider Podiatrist
DX: E11.621 Type 2 diabetes mellitus with foot ulcer (principal); L97.512 Non-pressure chronic ulcer of other part of right foot with fat layer exposed; L97.522 Non-pressure chronic ulcer of other part of left foot with fat layer exposed; E11.42 Type 2 diabetes mellitus with diabetic polyneuropathy; I87.2 Venous insufficiency (chronic) (peripheral); R60.0 Localized edema; E66.9 Obesity, unspecified; Z68.38 Body mass index [BMI] 38.0-38.9, adult; I10 Essential (primary) hypertension; Z79.4 Long term (current) use of insulin; Z79.899 Other long term (current) drug therapy; Z79.82 Long term (current) use of aspirin; E11.51 Type 2 diabetes mellitus with diabetic peripheral angiopathy without gangrene
CPT/HCPCS: 11042; 93923; 93970; 99213; 99214; G0463

== ENCOUNTER 2019-12-26 10:45 | Outpatient (RCR) | payer OTHER, SELFPAY ==
[2019-12-08 00:42] VITALS: BP 150/72; PULSE 108; RESP 18; TEMP 36.8
[2019-12-12 14:12] VITALS: RESP 16; TEMP 36.2; BMI 38.2
--- NOTE | 2019-12-12 15:55 | PN.PCM_ITS ---
(1) Ulcer of left foot with fat layer exposed Status: Chronic Code(s): L97.522 - Non-pressure chronic ulcer of other part of left foot with fat layer exposed (2) Type 2 diabetes mellitus with diabetic polyneuropathy Status: Acute Code(s): E11.42 - Type 2 diabetes mellitus with diabetic polyneuropathy (3) Leg edema Status: Chronic Code(s): R60.0 - Localized edema Type of Wound Date of Service: 12/12/19 Chief Complaint: left foot ulcers History of Wound: 54-year-old male presents to the wound healing center for wounds on both forefeet. The right foot ulcers have healed. He denies fever, chill, nausea, vomiting. He has been doing the dressings as advised. He tries to wears offloading open toed surgical shoes at home. He has a vascular appointment with Dr. Ny on December 26, 2019. Progress of Wound: Improving - Physical Exam Vital Signs Temp Pulse Resp BP 97.2 F L 108 H 16 150/72 H 12/12/19 14:12 12/08/19 00:42 12/12/19 14:12 12/08/19 00:42 General: Alert, Oriented x3, Cooperative, No apparent distress Extremities: No cyanosis, Capillary Refill Less than 3 Seconds, No Calf Tenderness, Diminished Peripheral Pulses, Edema Skin: Ulcer/ Wound - No purulence, erythema, streaking, odor, infection. Peripheral epithelialization is noted to each ulcer site. No interdigital maceration necrosis Wound Measurements and Assessment WC - Nurse 1 - General Ulcer Measurement Start: 12/12/19 14:11 Freq: Status: Active Protocol: Activity Type Activity Date Activity User E-Sign Co-Sign Detail Recorded Client Recorded Date Recorded By Document 12/12/19 14:12 [facility] [id number] 12/12/19 14:25 [facility] 12/12/19 14:12 Wound Center Nurse 1 [Ulcer Assessment] 6-left 5th toe -Combined with other wound No -Current Size (cm) - Length 2.2 -Current Size (cm) - Width 1.4 -Current Size (cm) - Depth 0.1 -Total Square Cm 3.08 -Photo Taken No -Epithelialization Small 1-33% -Tunneling No -Undermining/Tunneling No -Circular Undermining No -Exudate Amt Small -Exudate Type Serous -Wound Margin Distinct, Outline Attached -Granulation Amt Large (67-100%) -Granulation Quality Pale,[place] -Slough/Fibrin Yes -Necrosis Amt Small (1-33%) -Necrotic Tissue Type Adherent Slough -Texture (Susana-wound Skin Appearance) Assessed,Callus -Moisture (Susana-wound Skin Appearance Assessed,Dry/ ) Scaly -Color (Susana-wound Skin Appearance) Assessed -Temperature (Susana-wound Skin No Abnormality Appearance) (Pt Warm) -Tenderness on Palpation (Susana-wound No Skin Appearance) -Ulcer Cleansing soapy water -Foul Odor after Cleansing No -Anesthetic Used 4% Lidocaine Solution 5-left 4th toe -Combined with other wound No -Current Size (cm) - Length 2.5 -Current Size (cm) - Width 1.7 -Current Size (cm) - Depth 0.1 -Total Square Cm 4.25 -Photo Taken No -Epithelialization Small 1-33% -Tunneling No -Undermining/Tunneling No -Circular Undermining No -Exudate Amt Small -Exudate Type Serous -Wound Margin Distinct, Outline Attached -Granulation Amt Large (67-100%) -Granulation Quality Pale,[place] -Slough/Fibrin Yes -Necrosis Amt Small (1-33%) -Necrotic Tissue Type Adherent Slough -Texture (Susana-wound Skin Appearance) Assessed,Callus ,Scarring -Moisture (Susana-wound Skin Appearance Assessed,Dry/ ) Scaly -Color (Susana-wound Skin Appearance) Assessed -Temperature (Susana-wound Skin No Abnormality Appearance) (Pt Warm) -Tenderness on Palpation (Susana-wound No Skin Appearance) -Ulcer Cleansing soapy water -Foul Odor after Cleansing No -Anesthetic Used 4% Lidocaine Solution 4-left 3rd toe -Combined with other wound No -Current Size (cm) - Length 2 -Current Size (cm) - Width 1.3 -Current Size (cm) - Depth 0.1 -Total Square Cm 2.6 -Photo Taken No -Epithelialization Small 1-33% -Tunneling No -Undermining/Tunneling No -Circular Undermining No -Exudate Amt Small -Exudate Type Serous -Wound Margin Distinct, Outline Attached -Granulation Amt Large (67-100%) -Granulation Quality Pale,[place] -Slough/Fibrin Yes -Necrosis Amt Small (1-33%) -Necrotic Tissue Type Adherent Slough -Texture (Susana-wound Skin Appearance) Assessed,Callus ,Scarring -Moisture (Susana-wound Skin Appearance Assessed,Dry/ ) Scaly -Color (Susana-wound Skin Appearance) Assessed -Temperature (Susana-wound Skin No Abnormality Appearance) (Pt Warm) -Tenderness on Palpation (Susana-wound No Skin Appearance) -Ulcer Cleansing soapy water -Foul Odor after Cleansing No -Anesthetic Used 4% Lidocaine Solution 3-left 2nd toe -Combined with other wound No -Current Size (cm) - Length 3.5 -Current Size (cm) - Width 1 -Current Size (cm) - Depth 0.1 -Total Square Cm 3.5 -Photo Taken No -Epithelialization Small 1-33% -Tunneling No -Undermining/Tunneling No -Circular Undermining No -Exudate Amt Small -Exudate Type Serous -Wound Margin Distinct, Outline Attached -Granulation Amt Large (67-100%) -Granulation Quality Pale,[place] -Slough/Fibrin Yes -Necrosis Amt Small (1-33%) -Necrotic Tissue Type Adherent Slough -Texture (Susana-wound Skin Appearance) Assessed,Callus ,Scarring -Moisture (Susana-wound Skin Appearance Assessed,Dry/ ) Scaly -Color (Susana-wound Skin Appearance) Assessed -Temperature (Susana-wound Skin No Abnormality Appearance) (Pt Warm) -Tenderness on Palpation (Susana-wound No Skin Appearance) -Ulcer Cleansing soapy water -Foul Odor after Cleansing No -Anesthetic Used 4% Lidocaine Solution 2. left hallux -Combined with other wound No -Current Size (cm) - Length 0.1 -Current Size (cm) - Width 0.1 -Current Size (cm) - Depth 0.1 -Total Square Cm 0.01 -Epithelialization Large 67-100% -Texture (Susana-wound Skin Appearance) Assessed -Moisture (Susana-wound Skin Appearance Assessed,Dry/ ) Scaly -Color (Susana-wound Skin Appearance) Assessed -Ulcer Cleansing soapy water -Foul Odor after Cleansing No -Anesthetic Used 4% Lidocaine Solution WC - Nurse 2 - General Ulcer CM Notes Start: 12/12/19 14:11 Freq: Status: Active Protocol: Activity Type Activity Date Activity User E-Sign Co-Sign Detail Recorded Client Recorded Date Recorded By Document 12/12/19 14:45 KASEY [id number] 12/12/19 14:52 KASEY 12/12/19 14:45 Wound Center Nurse 2 [Procedure/Treatment] 6-left 5th toe -Time 14:52 -Correct Patient Yes -Correct Side, Site, Position Yes -Correct Procedure Yes -Procedure Performed Yes -Type of Procedure Debridement -Clinical Debridement Subcutaneous -Post Debridement Size (cm) - Length 2.2 -Post Debridement Size (cm) - Width 1.5 -Post Debridement Size (cm) - Depth 0.1 -Total Square (cm) 3.30 -Wound/Ulcer Outcome Not Healed -Ulcer Cleansing Rinsed/ Irrigated with Saline -Foul Odor after Cleansing No -Bioengineered Tissue No -Bleeding Controlled with Pressure -Offloading Yes -Type of Offloading Surgical Shoe -Treatment Response Procedure Tolerated Well 5-left 4th toe -Time 14:51 -Correct Patient Yes -Correct Side, Site, Position Yes -Correct Procedure Yes -Procedure Performed Yes -Type of Procedure Debridement -Clinical Debridement Subcutaneous -Post Debridement Size (cm) - Length 2.5 -Post Debridement Size (cm) - Width 1.8 -Post Debridement Size (cm) - Depth 0.1 -Total Square (cm) 4.50 -Wound/Ulcer Outcome Not Healed -Ulcer Cleansing Rinsed/ Irrigated with Saline -Foul Odor after Cleansing No -Bioengineered Tissue No -Bleeding Controlled with Pressure -Offloading Yes -Type of Offloading Surgical Shoe -Treatment Response Procedure Tolerated Well 4-left 3rd toe -Time 14:50 -Correct Patient No -Correct Side, Site, Position No -Correct Procedure No -Procedure Performed No -Type of Procedure Debridement -Clinical Debridement Subcutaneous -Post Debridement Size (cm) - Length 2.0 -Post Debridement Size (cm) - Width 1.4 -Post Debridement Size (cm) - Depth 0.1 -Total Square (cm) 2.80 -Wound/Ulcer Outcome Not Healed -Ulcer Cleansing Rinsed/ Irrigated with Saline -Foul Odor after Cleansing No -Bioengineered Tissue No -Bleeding Controlled with Pressure -Offloading Yes -Type of Offloading Surgical Shoe -Treatment Response Procedure Tolerated Well 3-left 2nd toe -Time 14:50 -Correct Patient No -Correct Side, Site, Position No -Correct Procedure No -Procedure Performed No -Type of Procedure Debridement -Clinical Debridement Subcutaneous -Post Debridement Size (cm) - Length 3.5 -Post Debridement Size (cm) - Width 1.1 -Post Debridement Size (cm) - Depth 0.1 -Total Square (cm) 3.85 -Wound/Ulcer Outcome Not Healed -Ulcer Cleansing Rinsed/ Irrigated with Saline -Foul Odor after Cleansing No -Bioengineered Tissue No -Bleeding Controlled with Pressure -Offloading Yes -Type of Offloading Surgical Shoe -Treatment Response Procedure Tolerated Well 2. left hallux -Time 14:49 -Correct Patient Yes -Correct Side, Site, Position Yes -Correct Procedure Yes -Procedure Performed Yes -Type of Procedure Debridement -Clinical Debridement Subcutaneous -Post Debridement Size (cm) - Length 0.2 -Post Debridement Size (cm) - Width 0.4 -Post Debridement Size (cm) - Depth 0.1 -Total Square (cm) 0.08 -Wound/Ulcer Outcome Not Healed -Ulcer Cleansing Rinsed/ Irrigated with Saline -Foul Odor after Cleansing No -Bioengineered Tissue No -Bleeding Controlled with Pressure -Offloading Yes -Type of Offloading Surgical Shoe -Treatment Response Procedure Tolerated Well [See Physician Procedure note for Specifics] Musculoskeletal: No Tenderness to Palpation of Joints or Extremities, Muscle Wasting Neurological: - - Lack of normal epicritic sensation light touch consistent with neuropathy status Psych/Mental Status: Normal Affect, Appropriate Debridement Note Post-Debridement Measurements/Treatment WC - Nurse 2 - General Ulcer CM Notes Start: 12/12/19 14:11 Freq: Status: Active Protocol: Activity Type Activity Date Activity User E-Sign Co-Sign Detail Recorded Client Recorded Date Recorded By Document 12/12/19 14:45 KASEY [id number] 12/12/19 14:52 KASEY 12/12/19 14:45 Wound Center Nurse 2 6-left 5th toe -Time 14:52 -Correct Patient Yes -Correct Side, Site, Position Yes -Correct Procedure Yes -Procedure Performed Yes -Type of Procedure Debridement -Clinical Debridement Subcutaneous -Post Debridement Size (cm) - Length 2.2 -Post Debridement Size (cm) - Width 1.5 -Post Debridement Size (cm) - Depth 0.1 -Total Square (cm) 3.30 -Wound/Ulcer Outcome Not Healed -Ulcer Cleansing Rinsed/ Irrigated with Saline -Foul Odor after Cleansing No -Bioengineered Tissue No -Bleeding Controlled with Pressure -Offloading Yes -Type of Offloading Surgical Shoe -Treatment Response Procedure Tolerated Well 5-left 4th toe -Time 14:51 -Correct Patient Yes -Correct Side, Site, Position Yes -Correct Procedure Yes -Procedure Performed Yes -Type of Procedure Debridement -Clinical Debridement Subcutaneous -Post Debridement Size (cm) - Length 2.5 -Post Debridement Size (cm) - Width 1.8 -Post Debridement Size (cm) - Depth 0.1 -Total Square (cm) 4.50 -Wound/Ulcer Outcome Not Healed -Ulcer Cleansing Rinsed/ Irrigated with Saline -Foul Odor after Cleansing No -Bioengineered Tissue No -Bleeding Controlled with Pressure -Offloading Yes -Type of Offloading Surgical Shoe -Treatment Response Procedure Tolerated Well 4-left 3rd toe -Time 14:50 -Correct Patient No -Correct Side, Site, Position No -Correct Procedure No -Procedure Performed No -Type of Procedure Debridement -Clinical Debridement Subcutaneous -Post Debridement Size (cm) - Length 2.0 -Post Debridement Size (cm) - Width 1.4 -Post Debridement Size (cm) - Depth 0.1 -Total Square (cm) 2.80 -Wound/Ulcer Outcome Not Healed -Ulcer Cleansing Rinsed/ Irrigated with Saline -Foul Odor after Cleansing No -Bioengineered Tissue No -Bleeding Controlled with Pressure -Offloading Yes -Type of Offloading Surgical Shoe -Treatment Response Procedure Tolerated Well 3-left 2nd toe -Time 14:50 -Correct Patient No -Correct Side, Site, Position No -Correct Procedure No -Procedure Performed No -Type of Procedure Debridement -Clinical Debridement Subcutaneous -Post Debridement Size (cm) - Length 3.5 -Post Debridement Size (cm) - Width 1.1 -Post Debridement Size (cm) - Depth 0.1 -Total Square (cm) 3.85 -Wound/Ulcer Outcome Not Healed -Ulcer Cleansing Rinsed/ Irrigated with Saline -Foul Odor after Cleansing No -Bioengineered Tissue No -Bleeding Controlled with Pressure -Offloading Yes -Type of Offloading Surgical Shoe -Treatment Response Procedure Tolerated Well 2. left hallux -Time 14:49 -Correct Patient Yes -Correct Side, Site, Position Yes -Correct Procedure Yes -Procedure Performed Yes -Type of Procedure Debridement -Clinical Debridement Subcutaneous -Post Debridement Size (cm) - Length 0.2 -Post Debridement Size (cm) - Width 0.4 -Post Debridement Size (cm) - Depth 0.1 -Total Square (cm) 0.08 -Wound/Ulcer Outcome Not Healed -Ulcer Cleansing Rinsed/ Irrigated with Saline -Foul Odor after Cleansing No -Bioengineered Tissue No -Bleeding Controlled with Pressure -Offloading Yes -Type of Offloading Surgical Shoe -Treatment Response Procedure Tolerated Well Wound debrided: hallux (plantar) and dorsal toes 2,3,4,5 Laterality: Left Wound Grade/Stage: grade 1 Type of Debridement: Excisional debridement Anesthesia Used: 5% Lidocaine Gel Depth: in the subcutaneous layer Percentage of wound debrided: 100 Instrument Used: #15 blade Tissue Removed: fibrous, devitalized subcutaneous, biofilm, slough Severity: Fat Layer Exposed Amount of bleeding with debridement: Mild Bleeding Controlled with: Pressure Patient tolerated procedure well Assessment/Plan Assessment: Ulcer right hallux -healed today. 2, 3, 4, 5 dorsal tOes with fat layer exposed, no infection --improving. Diabetes with neuropathy. Peripheral vascular disease with arterial calcifications. Venous insufficiency. Bilateral lower extremity edema. Malnutrition suspected Plan: I reviewed and discussed his case. Subcutaneous excisional debridement was performed as noted in the clinical panel. I recommend strict offloading with surgical shoe use. He has already been fitted with these devices and presents with them today. He is reassured there are no local signs of infection. He will monitor for signs of redness, streaking, or other illness. I would like to obtain an x-ray to evaluate for any underlying contributing conditions. Bilateral 3 views of foot x-rays (AP, lateral, oblique) were reviewed without any soft tissue emphysema, foreign body, acute fracture disloca tion, osseous destruction or gross edema noted. I also recommend additional diagnostic data including labs (CBC, CMP, hemoglobin A1c). He did not demonstrate any leukocytosis. His albumin was 4.1. His hemoglobin A1c was 7.9%. He did have a decreased GFR. Noninvasive vascular lower extremity studies were reviewed and he has triphasic waveforms at bilateral ankles. Ossification of the vessels at the right ankle level are noted and there are mild occlusive disease of the digits on the right foot. The digital status is not checked on the left foot due to the current wrap to toe ulcers. venous Doppler with reflux evaluation was also performed and reviewed. 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 He does not have evidence of critical limb ischemia. She demonstrates lack of appropriate progress a referral to vascular specialist will be considered. To control edema with Tubigrip. If he can tolerate we can also consider double Tubigrip or a vein specialist referral if he does not demonstrate adequate improvement. To wash daily with soap and water and to change dressing with silver product whether that is silver cell or Aquacel Ag. He understands additional advanced wound healing products or other wound products recommendations will be implemented pending his initial progress and diagnostic data results. I would like to see him on a weekly basis. To return to clinic at the wound healing center next week. I answered all his questions.
[2019-12-26 11:07] VITALS: BP 122/66; PULSE 105; RESP 18; TEMP 36.6; BMI 38.2
--- NOTE | 2019-12-26 16:02 | PCM.WC.PN ---
(1) Ulcer of left foot with fat layer exposed Status: Chronic Current Visit: Yes Code(s): L97.522 - Non-pressure chronic ulcer of other part of left foot with fat layer exposed (2) Type 2 diabetes mellitus with diabetic polyneuropathy Status: Chronic Current Visit: Yes Code(s): E11.42 - Type 2 diabetes mellitus with diabetic polyneuropathy (3) Leg edema Status: Chronic Current Visit: Yes Code(s): R60.0 - Localized edema Type of Wound Date of Service: 12/26/19 Chief Complaint: left foot ulcers History of Wound: 54-year-old male presents to the wound healing center for remaining left foot ulcers. He denies fever, chill, nausea, vomiting. He has been doing the dressings as advised. He tries to wears offloading open toed surgical shoes at home. He has a vascular appointment with Dr. Ny on December 26, 2019. He relates that he had tenderness earlier today and additional testing is planned. Progress of Wound: Improving - Physical Exam Vital Signs Temp Pulse Resp BP 97.9 F 105 H 18 122/66 H 12/26/19 11:07 12/26/19 11:07 12/26/19 11:07 12/26/19 11:07 General: Alert, Oriented x3, Cooperative, No apparent distress HEENT: Atraumatic Extremities: No cyanosis, Capillary Refill Less than 3 Seconds, No Calf Tenderness, Diminished Peripheral Pulses, Edema - Decreased Skin: Ulcer/ Wound - No purulence, erythema, streaking, odor, infection. Peripheral epithelialization is noted to all ulcer sites. There is no necrosis or deep tissue exposure. There is full epithelialization noted to the plantar hallux ulcer site Wound Measurements and Assessment WC - Nurse 1 - General Ulcer Measurement Start: 12/12/19 14:11 Freq: Status: Active Protocol: Activity Type Activity Date Activity User E-Sign Co-Sign Detail Recorded Client Recorded Date Recorded By Document 12/26/19 11:07 SASHA [id number] 12/26/19 11:17 RB 12/26/19 11:07 Wound Center Nurse 1 [Ulcer Assessment] 6-left 5th toe -Combined with other wound No -Current Size (cm) - Length 0.1 -Current Size (cm) - Width 0.1 -Current Size (cm) - Depth 0.1 -Total Square Cm 0.01 -Epithelialization Medium 34-66% -Tunneling No -Undermining/Tunneling No -Circular Undermining No -Exudate Amt None Present -Wound Margin Flat & Intact -Granulation Amt Medium (34-66%) -Granulation Quality [place] -Slough/Fibrin Yes -Necrosis Amt Small (1-33%) -Necrotic Tissue Type Adherent Slough -Structure Exposed N/A -Texture (Susana-wound Skin Appearance) Assessed -Moisture (Susana-wound Skin Appearance Dry/Scaly ) -Color (Susana-wound Skin Appearance) Assessed -Temperature (Susana-wound Skin No Abnormality Appearance) (Pt Warm) -Tenderness on Palpation (Susana-wound No Skin Appearance) -Ulcer Cleansing Wound Cleanser -Foul Odor after Cleansing No -Anesthetic Used 4% Lidocaine Solution 5-left 4th toe -Combined with other wound No -Current Size (cm) - Length 1 -Current Size (cm) - Width 1.5 -Current Size (cm) - Depth 0.1 -Total Square Cm 1.5 -Tunneling No -Undermining/Tunneling No -Circular Undermining No -Exudate Amt Small -Exudate Type Serosanguineous -Wound Margin Flat & Intact -Granulation Amt Medium (34-66%) -Granulation Quality [place] -Slough/Fibrin Yes -Necrosis Amt Medium (34-66%) -Structure Exposed N/A -Texture (Susana-wound Skin Appearance) Assessed -Moisture (Susana-wound Skin Appearance Dry/Scaly ) -Color (Susana-wound Skin Appearance) Assessed -Temperature (Susana-wound Skin No Abnormality Appearance) (Pt Warm) -Tenderness on Palpation (Susana-wound No Skin Appearance) -Ulcer Cleansing Wound Cleanser -Foul Odor after Cleansing No -Anesthetic Used 4% Lidocaine Solution 4-left 3rd toe -Combined with other wound No -Current Size (cm) - Length 1.6 -Current Size (cm) - Width 1 -Current Size (cm) - Depth 0.1 -Total Square Cm 1.6 -Tunneling No -Undermining/Tunneling No -Circular Undermining No -Exudate Amt Small -Exudate Type Serosanguineous -Wound Margin Flat & Intact -Granulation Amt Medium (34-66%) -Granulation Quality [place] -Slough/Fibrin Yes -Necrosis Amt Small (1-33%) -Necrotic Tissue Type Adherent Slough -Structure Exposed N/A -Texture (Susana-wound Skin Appearance) Assessed -Moisture (Susana-wound Skin Appearance Dry/Scaly ) -Color (Susana-wound Skin Appearance) Assessed -Temperature (Susana-wound Skin No Abnormality Appearance) (Pt Warm) -Tenderness on Palpation (Susana-wound No Skin Appearance) -Ulcer Cleansing Wound Cleanser -Foul Odor after Cleansing No -Anesthetic Used 4% Lidocaine Solution 3-left 2nd toe -Combined with other wound No -Current Size (cm) - Length 0.3 -Current Size (cm) - Width 0.6 -Current Size (cm) - Depth 0.1 -Total Square Cm 0.18 -Tunneling No -Undermining/Tunneling No -Circular Undermining No -Exudate Amt Small -Exudate Type Serosanguineous -Wound Margin Flat & Intact -Granulation Amt Medium (34-66%) -Granulation Quality [place] -Slough/Fibrin Yes -Necrosis Amt Small (1-33%) -Necrotic Tissue Type Adherent Slough -Structure Exposed N/A -Texture (Susana-wound Skin Appearance) Assessed -Moisture (Susana-wound Skin Appearance Dry/Scaly ) -Color (Susana-wound Skin Appearance) Assessed -Temperature (Susana-wound Skin No Abnormality Appearance) (Pt Warm) -Tenderness on Palpation (Susana-wound No Skin Appearance) -Ulcer Cleansing Wound Cleanser -Foul Odor after Cleansing No -Anesthetic Used 4% Lidocaine Solution 7. left hallux -Combined with other wound No -Current Size (cm) - Length 0.1 -Current Size (cm) - Width 0.1 -Current Size (cm) - Depth 0.1 -Total Square Cm 0.01 -Tunneling No -Undermining/Tunneling No -Circular Undermining No -Exudate Amt None Present -Wound Margin Flat & Intact -Granulation Amt Medium (34-66%) -Granulation Quality [place] -Slough/Fibrin Yes -Necrosis Amt Small (1-33%) -Necrotic Tissue Type Adherent Slough -Structure Exposed N/A -Texture (Susana-wound Skin Appearance) Assessed -Moisture (Susana-wound Skin Appearance Dry/Scaly ) -Color (Susana-wound Skin Appearance) Assessed -Temperature (Susana-wound Skin No Abnormality Appearance) (Pt Warm) -Tenderness on Palpation (Susana-wound No Skin Appearance) -Ulcer Cleansing Wound Cleanser -Foul Odor after Cleansing No -Anesthetic Used 4% Lidocaine Solution WC - Nurse 2 - General Ulcer CM Notes Start: 12/25/19 19:35 Freq: Status: Active Protocol: Activity Type Activity Date Activity User E-Sign Co-Sign Detail Recorded Client Recorded Date Recorded By Document 12/26/19 11:29 [email or web address] [id number] 12/26/19 11:37 KASEY 12/26/19 11:29 Wound Center Nurse 2 [Procedure/Treatment] 6-left 5th toe -Time 11:36 -Correct Patient Yes -Correct Side, Site, Position Yes -Correct Procedure Yes -Procedure Performed Yes -Type of Procedure Debridement -Clinical Debridement Subcutaneous -Tissue Removed Subcutaneous -Post Debridement (cm) - Length 0.6 -Post Debridement (cm) - Width 0.6 -Post Debridement (cm) - Depth 0.1 -Total Square (Post) (cm) 0.36 -Area of Debridement (cm) - Length 0.6 -Area of Debridement (cm) - Width 0.6 -Total Square (Area) (cm) 0.36 -Tunneling No -Undermining/Tunneling No -Circular Undermining No -Wound/Ulcer Outcome Not Healed -Ulcer Cleansing Rinsed/ Irrigated with Saline -Foul Odor after Cleansing No -Bioengineered Tissue No -Bleeding Controlled with Pressure -Offloading Yes -Type of Offloading Surgical Shoe -Treatment Response Procedure Tolerated Well -Debridement - Subq, 1st 20sq cm Yes 5-left 4th toe -Time 11:35 -Correct Patient No -Correct Side, Site, Position No -Correct Procedure No -Procedure Performed No -Type of Procedure Debridement -Clinical Debridement Subcutaneous -Tissue Removed Subcutaneous -Post Debridement (cm) - Length 1.2 -Post Debridement (cm) - Width 0.8 -Post Debridement (cm) - Depth 0.1 -Total Square (Post) (cm) 0.96 -Area of Debridement (cm) - Length 1.2 -Area of Debridement (cm) - Width 0.8 -Total Square (Area) (cm) 0.96 -Tunneling No -Undermining/Tunneling No -Circular Undermining No -Wound/Ulcer Outcome Not Healed -Ulcer Cleansing Rinsed/ Irrigated with Saline -Foul Odor after Cleansing No -Bioengineered Tissue No -Bleeding Controlled with Pressure -Offloading Yes -Type of Offloading Surgical Shoe -Treatment Response Procedure Tolerated Well -Debridement - Subq, 1st 20sq cm Yes 4-left 3rd toe -Time 11:35 -Correct Patient Yes -Correct Side, Site, Position Yes -Correct Procedure Yes -Procedure Performed Yes -Type of Procedure Debridement -Clinical Debridement Subcutaneous -Tissue Removed Subcutaneous -Post Debridement (cm) - Length 1.3 -Post Debridement (cm) - Width 1.0 -Post Debridement (cm) - Depth 0.1 -Total Square (Post) (cm) 1.30 -Area of Debridement (cm) - Length 1.3 -Area of Debridement (cm) - Width 1.0 -Total Square (Area) (cm) 1.30 -Tunneling No -Undermining/Tunneling No -Circular Undermining No -Ulcer Cleansing Rinsed/ Irrigated with Saline -Foul Odor after Cleansing No -Bioengineered Tissue No -Bleeding Controlled with Pressure -Offloading Yes -Type of Offloading Surgical Shoe -Treatment Response Procedure Tolerated Well -Debridement - Subq, 1st 20sq cm Yes 3-left 2nd toe -Time 11:34 -Correct Patient Yes -Correct Side, Site, Position Yes -Correct Procedure Yes -Procedure Performed Yes -Type of Procedure Debridement -Clinical Debridement Subcutaneous -Tissue Removed Subcutaneous -Post Debridement (cm) - Length 1.4 -Post Debridement (cm) - Width 0.5 -Post Debridement (cm) - Depth 0.1 -Total Square (Post) (cm) 0.70 -Area of Debridement (cm) - Length 1.4 -Area of Debridement (cm) - Width 0.5 -Total Square (Area) (cm) 0.70 -Tunneling No -Undermining/Tunneling No -Circular Undermining No -Wound/Ulcer Outcome Not Healed -Ulcer Cleansing Rinsed/ Irrigated with Saline -Foul Odor after Cleansing No -Bioengineered Tissue No -Bleeding Controlled with Pressure -Offloading Yes -Type of Offloading Surgical Shoe -Treatment Response Procedure Tolerated Well -Debridement - Subq, 1st 20sq cm Yes 7. left hallux -Correct Patient No -Correct Side, Site, Position No -Correct Procedure No -Procedure Performed No -Post Debridement (cm) - Length 0 -Post Debridement (cm) - Width 0 -Post Debridement (cm) - Depth 0 -Total Square (Post) (cm) 0 -Tunneling No -Undermining/Tunneling No -Circular Undermining No -Wound/Ulcer Outcome Healed- Epithelialized [See Physician Procedure note for Specifics] - Nurse 3 - General Ulcer D/C NN Start: 12/25/19 19:35 Freq: Status: Active Protocol: Activity Type Activity Date Activity User E-Sign Co-Sign Detail Recorded Client Recorded Date Recorded By Document 12/26/19 11:50 [facility] [id number] 12/26/19 11:51 [facility] 12/26/19 11:50 Wound Care Nurse 3 [Wound Dressing] 6-left 5th toe -Ulcer Cleansing Rinsed/ Irrigated with Saline -Foul Odor after Cleansing No -Primary Dressing Applied Aquacel AG -Primary Dressing Covered/Secured Dry Gauze & with Roll Gauze, Secured with Tape -Aquacel AG 1 5-left 4th toe -Ulcer Cleansing Rinsed/ Irrigated with Saline -Foul Odor after Cleansing No -Primary Dressing Applied Aquacel AG -Primary Dressing Covered/Secured Dry Gauze & with Roll Gauze, Secured with Tape -Aquacel AG 0 4-left 3rd toe -Ulcer Cleansing Rinsed/ Irrigated with Saline -Foul Odor after Cleansing No -Primary Dressing Applied Aquacel AG -Primary Dressing Covered/Secured Dry Gauze & with Roll Gauze, Secured with Tape -Aquacel AG 0 3-left 2nd toe -Ulcer Cleansing Rinsed/ Irrigated with Saline -Foul Odor after Cleansing No -Primary Dressing Applied Aquacel AG -Primary Dressing Covered/Secured Dry Gauze & with Roll Gauze, Secured with Tape -Aquacel AG 0 [Post Procedure Tolerated] -Treatment Response Procedure Tolerated Well Pain Scale: 0-10 Numeric [Pain] -Is Patient Pain Free? Yes - Visit Discharge [Visit Discharge Information] -Discharge Condition Stable -Ambulatory Status Ambulatory -Transportation Private Auto Musculoskeletal: No Tenderness to Palpation of Joints or Extremities, Muscle Wasting Neurological: - - Lack of epicritic sensation light touch is consistent with neuropathy status Psych/Mental Status: Normal Affect, Appropriate Debridement Note Post-Debridement Measurements/Treatment - Nurse 2 - General Ulcer CM Notes Start: 12/25/19 19:35 Freq: Status: Active Protocol: Activity Type Activity Date Activity User E-Sign Co-Sign Detail Recorded Client Recorded Date Recorded By Document 12/26/19 11:29 [id number] 12/26/19 11:37 12/26/19 11:29 Wound Center Nurse 2 6-left 5th toe -Time 11:36 -Correct Patient Yes -Correct Side, Site, Position Yes -Correct Procedure Yes -Procedure Performed Yes -Type of Procedure Debridement -Clinical Debridement Subcutaneous -Tissue Removed Subcutaneous -Post Debridement (cm) - Length 0.6 -Post Debridement (cm) - Width 0.6 -Post Debridement (cm) - Depth 0.1 -Total Square (Post) (cm) 0.36 -Area of Debridement (cm) - Length 0.6 -Area of Debridement (cm) - Width 0.6 -Total Square (Area) (cm) 0.36 -Tunneling No -Undermining/Tunneling No -Circular Undermining No -Wound/Ulcer Outcome Not Healed -Ulcer Cleansing Rinsed/ Irrigated with Saline -Foul Odor after Cleansing No -Bioengineered Tissue No -Bleeding Controlled with Pressure -Offloading Yes -Type of Offloading Surgical Shoe -Treatment Response Procedure Tolerated Well -Debridement - Subq, 1st 20sq cm Yes 5-left 4th toe -Time 11:35 -Correct Patient No -Correct Side, Site, Position No -Correct Procedure No -Procedure Performed No -Type of Procedure Debridement -Clinical Debridement Subcutaneous -Tissue Removed Subcutaneous -Post Debridement (cm) - Length 1.2 -Post Debridement (cm) - Width 0.8 -Post Debridement (cm) - Depth 0.1 -Total Square (Post) (cm) 0.96 -Area of Debridement (cm) - Length 1.2 -Area of Debridement (cm) - Width 0.8 -Total Square (Area) (cm) 0.96 -Tunneling No -Undermining/Tunneling No -Circular Undermining No -Wound/Ulcer Outcome Not Healed -Ulcer Cleansing Rinsed/ Irrigated with Saline -Foul Odor after Cleansing No -Bioengineered Tissue No -Bleeding Controlled with Pressure -Offloading Yes -Type of Offloading Surgical Shoe -Treatment Response Procedure Tolerated Well -Debridement - Subq, 1st 20sq cm Yes 4-left 3rd toe -Time 11:35 -Correct Patient Yes -Correct Side, Site, Position Yes -Correct Procedure Yes -Procedure Performed Yes -Type of Procedure Debridement -Clinical Debridement Subcutaneous -Tissue Removed Subcutaneous -Post Debridement (cm) - Length 1.3 -Post Debridement (cm) - Width 1.0 -Post Debridement (cm) - Depth 0.1 -Total Square (Post) (cm) 1.30 -Area of Debridement (cm) - Length 1.3 -Area of Debridement (cm) - Width 1.0 -Total Square (Area) (cm) 1.30 -Tunneling No -Undermining/Tunneling No -Circular Undermining No -Ulcer Cleansing Rinsed/ Irrigated with Saline -Foul Odor after Cleansing No -Bioengineered Tissue No -Bleeding Controlled with Pressure -Offloading Yes -Type of Offloading Surgical Shoe -Treatment Response Procedure Tolerated Well -Debridement - Subq, 1st 20sq cm Yes 3-left 2nd toe -Time 11:34 -Correct Patient Yes -Correct Side, Site, Position Yes -Correct Procedure Yes -Procedure Performed Yes -Type of Procedure Debridement -Clinical Debridement Subcutaneous -Tissue Removed Subcutaneous -Post Debridement (cm) - Length 1.4 -Post Debridement (cm) - Width 0.5 -Post Debridement (cm) - Depth 0.1 -Total Square (Post) (cm) 0.70 -Area of Debridement (cm) - Length 1.4 -Area of Debridement (cm) - Width 0.5 -Total Square (Area) (cm) 0.70 -Tunneling No -Undermining/Tunneling No -Circular Undermining No -Wound/Ulcer Outcome Not Healed -Ulcer Cleansing Rinsed/ Irrigated with Saline -Foul Odor after Cleansing No -Bioengineered Tissue No -Bleeding Controlled with Pressure -Offloading Yes -Type of Offloading Surgical Shoe -Treatment Response Procedure Tolerated Well -Debridement - Subq, 1st 20sq cm Yes 7. left hallux -Correct Patient No -Correct Side, Site, Position No -Correct Procedure No -Procedure Performed No -Post Debridement (cm) - Length 0 -Post Debridement (cm) - Width 0 -Post Debridement (cm) - Depth 0 -Total Square (Post) (cm) 0 -Tunneling No -Undermining/Tunneling No -Circular Undermining No -Wound/Ulcer Outcome Healed- Epithelialized WC - Nurse 3 - General Ulcer D/C NN Start: 12/25/19 19:35 Freq: Status: Active Protocol: Activity Type Activity Date Activity User E-Sign Co-Sign Detail Recorded Client Recorded Date Recorded By Document 12/26/19 11:50 [facility] [id number] 12/26/19 11:51 [facility] 12/26/19 11:50 Wound Care Nurse 3 6-left 5th toe -Ulcer Cleansing Rinsed/ Irrigated with Saline -Foul Odor after Cleansing No -Primary Dressing Applied Aquacel AG -Primary Dressing Covered/Secured with Dry Gauze & Roll Gauze, Secured with Tape -Aquacel AG 1 5-left 4th toe -Ulcer Cleansing Rinsed/ Irrigated with Saline -Foul Odor after Cleansing No -Primary Dressing Applied Aquacel AG -Primary Dressing Covered/Secured with Dry Gauze & Roll Gauze, Secured with Tape -Aquacel AG 0 4-left 3rd toe -Ulcer Cleansing Rinsed/ Irrigated with Saline -Foul Odor after Cleansing No -Primary Dressing Applied Aquacel AG -Primary Dressing Covered/Secured with Dry Gauze & Roll Gauze, Secured with Tape -Aquacel AG 0 3-left 2nd toe -Ulcer Cleansing Rinsed/ Irrigated with Saline -Foul Odor after Cleansing No -Primary Dressing Applied Aquacel AG -Primary Dressing Covered/Secured with Dry Gauze & Roll Gauze, Secured with Tape -Aquacel AG 0 Treatment Response Procedure Tolerated Well Pain Scale: 0-10 Numeric Is Patient Pain Free? Yes WC - Visit Discharge Discharge Condition Stable Ambulatory Status Ambulatory Transportation Private Auto Wound debrided: dorsal toes 2,3,4,5 Laterality: Left Wound Grade/Stage: grade 1 Type of Debridement: Excisional debridement Anesthesia Used: 5% Lidocaine Gel Depth: in the subcutaneous layer Percentage of wound debrided: 100 Instrument Used: #15 blade Tissue Removed: fibrous, devitalized subcutaneous, biofilm, slough Severity: Fat Layer Exposed Amount of bleeding with debridement: Mild Bleeding Controlled with: Pressure Patient tolerated procedure well Assessment/Plan Active Problems (Last Reviewed 01/01/19 @ 09:04 by JEFFREY Swanson) Ulcer of left foot with fat layer exposed (Chronic) Type 2 diabetes mellitus with diabetic polyneuropathy (Chronic) Leg edema (Chronic) Assessment: Ulcer right hallux -healed today. 2, 3, 4, 5 dorsal toes with fat layer exposed, no infection -- improving. Diabetes with neuropathy. Peripheral vascular disease with arterial calcifications. Venous insufficiency. Bilateral lower extremity edema. Malnutrition suspected Plan: I reviewed and discussed his case. Subcutaneous excisional debridement was performed as noted in the clinical panel. Aquacel Ag was applied to the ulcer sites and he was advised to changes daily. I recommend strict offloading with surgical shoe use. He has already been fitted with these devices and presents with them today. He is reassured there are no local signs of infection. He will monitor for signs of redness, streaking, or other illness. I would like to obtain an x-ray to evaluate for any underlying contributing conditions. Bilateral 3 views of foot x-rays (AP, lateral, oblique) were reviewed without any soft tissue emphysema, foreign body, acute fracture dislocation, osseous destruction or gross edema noted. I also recommend additional diagnostic data including labs (CBC, CMP, hemoglobin A1c). He did not demonstrate any leukocytosis. His albumin was 4.1. His hemoglobin A1c was 7.9%. He did have a decreased GFR. Noninvasive vascular lower extremity studies were reviewed and he has triphasic waveforms at bilateral ankles. Ossification of the vessels at the right ankle level are noted and there are mild occlusive disease of the digits on the right foot. The digital status is not checked on the left foot due to the current wrap to toe ulcers. venous Doppler with reflux evaluation was also performed and reviewed. 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 He does not have evidence of critical limb ischemia. A vascular referral was provided and he went to the consult earlier today. Additional tests are planned. To control edema with Tubigrip. To wash daily with soap and water and to change dressing with silver product whether that is silver cell or Aquacel Ag. He understands additional advanced wound healing products or other wound products recommendations will be implemented pending his initial progress and diagnostic data results. I would like to see him on a weekly basis. To return to clinic at the wound healing center next week. I answered all his questions.
== END 2020-01-07 23:59 ==
LOC: WC 10:45
PROVIDERS: PCP Student in an Organized Health Care Education/Training Program; Referring Provider Podiatrist; Visit Provider Podiatrist
DX: E11.621 Type 2 diabetes mellitus with foot ulcer (principal); L97.522 Non-pressure chronic ulcer of other part of left foot with fat layer exposed; E11.42 Type 2 diabetes mellitus with diabetic polyneuropathy; E11.51 Type 2 diabetes mellitus with diabetic peripheral angiopathy without gangrene; I87.2 Venous insufficiency (chronic) (peripheral); R60.0 Localized edema
CPT/HCPCS: 11042

== ENCOUNTER 2020-01-30 10:00 | Outpatient (RCR) | payer OTHER, SELFPAY ==
[2020-01-08 00:42] VITALS: BP 122/66; PULSE 105; RESP 18; TEMP 36.6
[2020-01-09 10:35] VITALS: BP 142/71; PULSE 92; RESP 20; TEMP 36.2; BMI 38.2
--- NOTE | 2020-01-09 14:47 | PCM.WC.PN ---
(1) Ulcer of left foot with fat layer exposed Status: Chronic Code(s): L97.522 - Non-pressure chronic ulcer of other part of left foot with fat layer exposed (2) Type 2 diabetes mellitus with diabetic polyneuropathy Status: Chronic Code(s): E11.42 - Type 2 diabetes mellitus with diabetic polyneuropathy Type of Wound Date of Service: 01/09/20 Chief Complaint: left foot ulcers History of Wound: 54-year-old male presents to the wound healing center for remaining left foot ulcers. He denies fever, chill, nausea, vomiting. He has been doing the dressings as advised. He tries to wears offloading open toed surgical shoes at home. He has a vascular appointment with Dr. Ny on December 26, 2019. He relates that he had tenderness earlier today and additional testing is planned. He relates he is still working in the schedule. Progress of Wound: Improving. All digits have healed except 2 and 4 - Physical Exam Vital Signs Temp Pulse Resp BP 97.1 F L 92 20 H 142/71 H 01/09/20 10:35 01/09/20 10:35 01/09/20 10:35 01/09/20 10:35 General: Alert, Oriented x3, Cooperative, No apparent distress HEENT: Atraumatic Extremities: No cyanosis, No edema, No Calf Tenderness, Diminished Peripheral Pulses, Edema Skin: Ulcer/ Wound - No purulence, erythema, string, odor, infection. Adjacent skin is hairless and atrophic. There is full epithelialization left hallux, third, and fifth toes. No interdigital maceration or eschar Wound Measurements and Assessment WC - Nurse 1 - General Ulcer Measurement Start: 01/09/20 10:35 Freq: Status: Active Protocol: Activity Type Activity Date Activity User E-Sign Co-Sign Detail Recorded Client Recorded Date Recorded By Document 01/09/20 10:35 DL [id number] 01/09/20 10:46 DL 01/09/20 10:35 Wound Center Nurse 1 [Ulcer Assessment] 6-left 5th toe -Current Size (cm) - Length 0.7 -Current Size (cm) - Width 0.2 -Current Size (cm) - Depth 0.1 -Total Square Cm 0.14 -Exudate Amt None Present -Wound Margin Thickened -Granulation Amt Large (67-100%) -Granulation Quality [place] -Necrosis Amt Small (1-33%) -Necrotic Tissue Type Adherent Slough -Structure Exposed N/A -Texture (Susana-wound Skin Appearance) Scarring -Moisture (Susana-wound Skin Appearance No Abnormality ) -Color (Susana-wound Skin Appearance) No Abnormality -Temperature (Susana-wound Skin No Abnormality Appearance) (Pt Warm) -Tenderness on Palpation (Susana-wound No Skin Appearance) -Ulcer Cleansing Rinsed/ Irrigated with Saline -Foul Odor after Cleansing No -Anesthetic Used 5% Lidocaine Gel 5-left 4th toe -Current Size (cm) - Length 1.8 -Current Size (cm) - Width 1.1 -Current Size (cm) - Depth 0.8 -Total Square Cm 1.98 -Photo Taken No -Exudate Amt None Present -Wound Margin Thickened -Granulation Amt Medium (34-66%) -Granulation Quality [place] -Necrosis Amt Medium (34-66%) -Necrotic Tissue Type Adherent Slough -Structure Exposed N/A -Texture (Susana-wound Skin Appearance) Scarring -Moisture (Susana-wound Skin Appearance No Abnormality ) -Color (Susana-wound Skin Appearance) No Abnormality -Temperature (Susana-wound Skin No Abnormality Appearance) (Pt Warm) -Tenderness on Palpation (Susana-wound No Skin Appearance) -Ulcer Cleansing Rinsed/ Irrigated with Saline -Foul Odor after Cleansing No -Anesthetic Used 5% Lidocaine Gel 4-left 3rd toe -Current Size (cm) - Length 1.3 -Current Size (cm) - Width 1 -Current Size (cm) - Depth 0.1 -Total Square Cm 1.3 -Photo Taken No -Exudate Amt None Present -Wound Margin Thickened -Granulation Amt Medium (34-66%) -Granulation Quality [place] -Necrosis Amt Medium (34-66%) -Necrotic Tissue Type Adherent Slough -Structure Exposed N/A -Texture (Susana-wound Skin Appearance) Scarring -Moisture (Susana-wound Skin Appearance No Abnormality ) -Color (Susana-wound Skin Appearance) No Abnormality -Temperature (Susana-wound Skin No Abnormality Appearance) (Pt Warm) -Tenderness on Palpation (Susana-wound No Skin Appearance) -Ulcer Cleansing Rinsed/ Irrigated with Saline -Foul Odor after Cleansing No -Anesthetic Used 5% Lidocaine Gel 3-left 2nd toe -Current Size (cm) - Length 1.1 -Current Size (cm) - Width 0.7 -Current Size (cm) - Depth 0.1 -Total Square Cm 0.77 -Photo Taken No -Exudate Amt None Present -Wound Margin Thickened -Granulation Amt Small (1-33%) -Granulation Quality [place] -Necrosis Amt Large (67-100%) -Necrotic Tissue Type Adherent Slough -Structure Exposed N/A -Texture (Susana-wound Skin Appearance) Scarring -Moisture (Susana-wound Skin Appearance No Abnormality ) -Color (Susana-wound Skin Appearance) No Abnormality -Temperature (Susana-wound Skin No Abnormality Appearance) (Pt Warm) -Tenderness on Palpation (Susana-wound No Skin Appearance) -Ulcer Cleansing Rinsed/ Irrigated with Saline -Foul Odor after Cleansing No -Anesthetic Used 5% Lidocaine Gel WC - Nurse 2 - General Ulcer CM Notes Start: 01/09/20 10:35 Freq: Status: Active Protocol: Activity Type Activity Date Activity User E-Sign Co-Sign Detail Recorded Client Recorded Date Recorded By Document 01/09/20 11:03 [email or web address] [id number] 01/09/20 11:08 KASEY 01/09/20 11:03 Wound Center Nurse 2 [Procedure/Treatment] 6-left 5th toe -Time 11:03 -Correct Patient No -Correct Side, Site, Position No -Correct Procedure No -Procedure Performed No -Post Debridement (cm) - Length 0 -Post Debridement (cm) - Width 0 -Post Debridement (cm) - Depth 0 -Total Square (Post) (cm) 0 -Area of Debridement (cm) - Length 0 -Area of Debridement (cm) - Width 0 -Total Square (Area) (cm) 0 -Tunneling No -Undermining/Tunneling No -Circular Undermining No -Wound/Ulcer Outcome Healed- Epithelialized -Ulcer Cleansing Rinsed/ Irrigated with Saline -Foul Odor after Cleansing No -Bioengineered Tissue No 5-left 4th toe -Time 11:04 -Correct Patient Yes -Correct Side, Site, Position Yes -Correct Procedure Yes -Procedure Performed Yes -Type of Procedure Debridement -Clinical Debridement Subcutaneous -Tissue Removed Subcutaneous -Post Debridement (cm) - Length 0.1 -Post Debridement (cm) - Width 0.1 -Post Debridement (cm) - Depth 0.1 -Total Square (Post) (cm) 0.01 -Area of Debridement (cm) - Length 0.1 -Area of Debridement (cm) - Width 0.1 -Total Square (Area) (cm) 0.01 -Tunneling No -Undermining/Tunneling No -Circular Undermining No -Wound/Ulcer Outcome Not Healed -Ulcer Cleansing Rinsed/ Irrigated with Saline -Foul Odor after Cleansing No -Bioengineered Tissue No -Bleeding Controlled with Pressure -Offloading Yes -Type of Offloading Surgical Shoe -Debridement - Subq, 1st 20sq cm No 4-left 3rd toe -Correct Patient No -Correct Side, Site, Position No -Correct Procedure No -Procedure Performed No -Post Debridement (cm) - Length 0 -Post Debridement (cm) - Width 0 -Post Debridement (cm) - Depth 0 -Total Square (Post) (cm) 0 -Area of Debridement (cm) - Length 0 -Area of Debridement (cm) - Width 0 -Total Square (Area) (cm) 0 -Wound/Ulcer Outcome Healed- Epithelialized 3-left 2nd toe -Time 11:05 -Correct Patient Yes -Correct Side, Site, Position Yes -Correct Procedure Yes -Procedure Performed Yes -Type of Procedure Debridement -Clinical Debridement Subcutaneous -Tissue Removed Subcutaneous -Post Debridement (cm) - Length 1.2 -Post Debridement (cm) - Width 0.7 -Post Debridement (cm) - Depth 0.1 -Total Square (Post) (cm) 0.84 -Area of Debridement (cm) - Length 1.2 -Area of Debridement (cm) - Width 0.7 -Total Square (Area) (cm) 0.84 -Tunneling No -Undermining/Tunneling No -Circular Undermining No -Wound/Ulcer Outcome Not Healed -Ulcer Cleansing Rinsed/ Irrigated with Saline -Foul Odor after Cleansing No -Bioengineered Tissue No -Bleeding Controlled with Pressure -Offloading Yes -Type of Offloading Surgical Shoe -Treatment Response Procedure Tolerated Well -Debridement - Subq, 1st 20sq cm Yes [See Physician Procedure note for Specifics] Pain Scale: 0-10 Numeric [Pain] -Is Patient Pain Free? Yes WC - Nurse 3 - General Ulcer D/C NN Start: 01/09/20 10:35 Freq: Status: Active Protocol: Activity Type Activity Date Activity User E-Sign Co-Sign Detail Recorded Client Recorded Date Recorded By Document 01/09/20 11:27 RB [id number] 01/09/20 11:28 RB 01/09/20 11:27 Wound Care Nurse 3 [Wound Dressing] 5-left 4th toe -Ulcer Cleansing Rinsed/ Irrigated with Saline -Primary Dressing Applied Aquacel AG 2x2 -Primary Dressing Covered/Secured Dry Gauze with -Aquacel AG 2x2 1 3-left 2nd toe -Ulcer Cleansing Wound Cleanser -Other Dressing aquacel AG -Primary Dressing Covered/Secured Dry Gauze, with Secured with Tape [Post Procedure Tolerated] -Treatment Response Procedure Tolerated Well Pain Scale: 0-10 Numeric [Pain] -Is Patient Pain Free? Yes WC - Visit Discharge [Visit Discharge Information] -Discharge Condition Stable -Ambulatory Status Ambulatory -Transportation Private Auto -Medication Reconcilliation completed No & provided to patient/care provider -Clinical Summary of Care Provided Yes Musculoskeletal: No Tenderness to Palpation of Joints or Extremities, Muscle Wasting, - - Subtle dorsal contraction of lesser toes Neurological: - - Lack of epicritic sensation light touch is consistent with neuropathy status Psych/Mental Status: Normal Affect, Appropriate Debridement Note Post-Debridement Measurements/Treatment WC - Nurse 2 - General Ulcer CM Notes Start: 01/09/20 10:35 Freq: Status: Active Protocol: Activity Type Activity Date Activity User E-Sign Co-Sign Detail Recorded Client Recorded Date Recorded By Document 01/09/20 11:03 [email or web address] [id number] 01/09/20 11:08 01/09/20 11:03 Wound Center Nurse 2 6-left 5th toe -Time 11:03 -Correct Patient No -Correct Side, Site, Position No -Correct Procedure No -Procedure Performed No -Post Debridement (cm) - Length 0 -Post Debridement (cm) - Width 0 -Post Debridement (cm) - Depth 0 -Total Square (Post) (cm) 0 -Area of Debridement (cm) - Length 0 -Area of Debridement (cm) - Width 0 -Total Square (Area) (cm) 0 -Tunneling No -Undermining/Tunneling No -Circular Undermining No -Wound/Ulcer Outcome Healed- Epithelialized -Ulcer Cleansing Rinsed/ Irrigated with Saline -Foul Odor after Cleansing No -Bioengineered Tissue No 5-left 4th toe -Time 11:04 -Correct Patient Yes -Correct Side, Site, Position Yes -Correct Procedure Yes -Procedure Performed Yes -Type of Procedure Debridement -Clinical Debridement Subcutaneous -Tissue Removed Subcutaneous -Post Debridement (cm) - Length 0.1 -Post Debridement (cm) - Width 0.1 -Post Debridement (cm) - Depth 0.1 -Total Square (Post) (cm) 0.01 -Area of Debridement (cm) - Length 0.1 -Area of Debridement (cm) - Width 0.1 -Total Square (Area) (cm) 0.01 -Tunneling No -Undermining/Tunneling No -Circular Undermining No -Wound/Ulcer Outcome Not Healed -Ulcer Cleansing Rinsed/ Irrigated with Saline -Foul Odor after Cleansing No -Bioengineered Tissue No -Bleeding Controlled with Pressure -Offloading Yes -Type of Offloading Surgical Shoe -Debridement - Subq, 1st 20sq cm No 4-left 3rd toe -Correct Patient No -Correct Side, Site, Position No -Correct Procedure No -Procedure Performed No -Post Debridement (cm) - Length 0 -Post Debridement (cm) - Width 0 -Post Debridement (cm) - Depth 0 -Total Square (Post) (cm) 0 -Area of Debridement (cm) - Length 0 -Area of Debridement (cm) - Width 0 -Total Square (Area) (cm) 0 -Wound/Ulcer Outcome Healed- Epithelialized 3-left 2nd toe -Time 11:05 -Correct Patient Yes -Correct Side, Site, Position Yes -Correct Procedure Yes -Procedure Performed Yes -Type of Procedure Debridement -Clinical Debridement Subcutaneous -Tissue Removed Subcutaneous -Post Debridement (cm) - Length 1.2 -Post Debridement (cm) - Width 0.7 -Post Debridement (cm) - Depth 0.1 -Total Square (Post) (cm) 0.84 -Area of Debridement (cm) - Length 1.2 -Area of Debridement (cm) - Width 0.7 -Total Square (Area) (cm) 0.84 -Tunneling No -Undermining/Tunneling No -Circular Undermining No -Wound/Ulcer Outcome Not Healed -Ulcer Cleansing Rinsed/ Irrigated with Saline -Foul Odor after Cleansing No -Bioengineered Tissue No -Bleeding Controlled with Pressure -Offloading Yes -Type of Offloading Surgical Shoe -Treatment Response Procedure Tolerated Well -Debridement - Subq, 1st 20sq cm Yes Pain Scale: 0-10 Numeric Is Patient Pain Free? Yes WC - Nurse 3 - General Ulcer D/C NN Start: 09/02/20 10:35 Freq: Status: Active Protocol: Activity Type Activity Date Activity User E-Sign Co-Sign Detail Recorded Client Recorded Date Recorded By Document 01/09/20 11:27 [id number] 01/09/20 11:28 RB 01/09/20 11:27 Wound Care Nurse 3 5-left 4th toe -Ulcer Cleansing Rinsed/ Irrigated with Saline -Primary Dressing Applied Aquacel AG 2x2 -Primary Dressing Covered/Secured with Dry Gauze -Aquacel AG 2x2 1 3-left 2nd toe -Ulcer Cleansing Wound Cleanser -Other Dressing aquacel AG -Primary Dressing Covered/Secured with Dry Gauze, Secured with Tape Treatment Response Procedure Tolerated Well Pain Scale: 0-10 Numeric Is Patient Pain Free? Yes WC - Visit Discharge Discharge Condition Stable Ambulatory Status Ambulatory Transportation Private Auto Medication Reconcilliation completed & No provided to patient/care provider Clinical Summary of Care Provided Yes Wound debrided: dorsal 2 and 4 toes Laterality: Left Wound Grade/Stage: grade 1 Type of Debridement: Excisional debridement Anesthesia Used: 5% Lidocaine Gel Depth: in the subcutaneous layer Percentage of wound debrided: 100 Instrument Used: #15 blade Tissue Removed: fibrous, devitalized subcutaneous, biofilm, slough Severity: Fat Layer Exposed Amount of bleeding with debridement: Mild Bleeding Controlled with: Pressure Patient tolerated procedure well Assessment/Plan Assessment: Ulcer right hallux, digits 3 and 5-healed today. 2 and 4 dorsal toes with fat layer exposed, no infection -- improving. Diabetes with neuropathy. Peripheral vascular disease with arterial calcifications. Venous insufficiency. Bilateral lower extremity edema. Malnutrition suspected Plan: I reviewed and discussed his case. Subcutaneous excisional debridement was performed as noted in the clinical panel. Aquacel Ag was applied to the ulcer sites and he was advised to changes daily. I recommend strict offloading with surgical shoe use. He has already been fitted with these devices and presents with them today. He is reassured there are no local signs of infection. He will monitor for signs of redness, streaking, or other illness. I would like to obtain an x-ray to evaluate for any underlying contributing conditions. Bilateral 3 views of foot x-rays (AP, lateral, oblique) were reviewed without any soft tissue emphysema, foreign body, acute fracture dislocation, osseous destruction or gross edema noted. I also recommend additional diagnostic data including labs (CBC, CMP, hemoglobin A1c). He did not demonstrate any leukocytosis. His albumin was 4.1. His hemoglobin A1c was 7.9%. He did have a decreased GFR. Noninvasive vascular lower extremity studies were reviewed and he has triphasic waveforms at bilateral ankles. Ossification of the vessels at the right ankle level are noted and there are mild occlusive disease of the digits on the right foot. The digital status is not checked on the left foot due to the current wrap to toe ulcers. venous Doppler with reflux evaluation was also performed and reviewed. 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 He does not have evidence of critical limb ischemia. A vascular referral was provided and he went to the consult earlier today. Additional tests are planned. To control edema with Tubigrip. To wash daily with soap and water and to change dressing with silver product whether that is silver cell or Aquacel Ag. He understands additional advanced wound healing products or other wound products recommendations will be implemented pending his initial progress and diagnostic data results. I would like to see him on a weekly basis. To return to clinic at the wound healing center next week. I answered all his questions.
[2020-01-16 10:28] VITALS: BP 160/71; PULSE 100; RESP 18; TEMP 36.4; BMI 38.2
--- NOTE | 2020-01-16 10:45 | PCM.WC.PN ---
(1) Ulcer of left foot with fat layer exposed Status: Resolved Current Visit: Yes Code(s): L97.522 - Non-pressure chronic ulcer of other part of left foot with fat layer exposed (2) Type 2 diabetes mellitus with diabetic polyneuropathy Status: Chronic Current Visit: Yes Code(s): E11.42 - Type 2 diabetes mellitus with diabetic polyneuropathy Type of Wound Date of Service: 01/16/20 Chief Complaint: left foot ulcers History of Wound: 54-year-old male presents to the wound healing center for remaining left foot ulcers. He denies fever, chill, nausea, vomiting. He has been doing the dressings as advised. He tries to wears offloading open toed surgical shoes at home. He has a vascular appointment with Dr. Ny on December 26, 2019. He denies drainage and wonders if his ulcer sites have healed. Progress of Wound: All sites are healed today - Physical Exam Vital Signs Temp Pulse Resp BP 97.5 F L 100 18 160/71 H 01/16/20 10:28 01/16/20 10:28 01/16/20 10:28 01/16/20 10:28 General: Alert, Oriented x3, Cooperative, No apparent distress HEENT: Atraumatic Extremities: No cyanosis, Capillary Refill Less than 3 Seconds, No Calf Tenderness, Diminished Peripheral Pulses, Edema Skin: Ulcer/ Wound - No purulence, erythema, streaking, odor, infection. His skin is hairless and atrophic. There is full epithelialization to call foot ulcer site and there are no maceration evidence or necrosis Wound Measurements and Assessment WC - Nurse 1 - General Ulcer Measurement Start: 01/09/20 10:35 Freq: Status: Active Protocol: Activity Type Activity Date Activity User E-Sign Co-Sign Detail Recorded Client Recorded Date Recorded By Document 01/16/20 10:28 JF [id number] 01/16/20 10:32 [email or web address] 01/16/20 10:28 Wound Center Nurse 1 [Ulcer Assessment] 5-left 4th toe -Combined with other wound No -Current Size (cm) - Length 0.1 -Current Size (cm) - Width 0.1 -Current Size (cm) - Depth 0.1 -Total Square Cm 0.01 -Photo Taken No -Epithelialization Large 67-100% -Tunneling No -Undermining/Tunneling No -Circular Undermining No -Exudate Amt None Present -Wound Margin Indistinct, Non -Visible -Granulation Amt None Present (0 %) -Slough/Fibrin Yes -Necrosis Amt Large (67-100%) -Necrotic Tissue Type Adherent Slough -Structure Exposed N/A -Texture (Susana-wound Skin Appearance) Assessed,Callus -Color (Susana-wound Skin Appearance) Assessed -Temperature (Susana-wound Skin No Abnormality Appearance) (Pt Warm) -Tenderness on Palpation (Susana-wound No Skin Appearance) -Ulcer Cleansing Rinsed/ Irrigated with Saline -Foul Odor after Cleansing No -Anesthetic Used 4% Lidocaine Solution 3-left 2nd toe -Combined with other wound No -Current Size (cm) - Length 0.1 -Current Size (cm) - Width 0.1 -Current Size (cm) - Depth 0.1 -Total Square Cm 0.01 -Photo Taken No -Epithelialization Large 67-100% -Tunneling No -Undermining/Tunneling No -Circular Undermining No -Exudate Amt None Present -Wound Margin Indistinct, Non -Visible -Granulation Amt None Present (0 %) -Slough/Fibrin Yes -Necrosis Amt Large (67-100%) -Necrotic Tissue Type Adherent Slough -Structure Exposed N/A -Texture (Susana-wound Skin Appearance) Assessed,Callus -Moisture (Susana-wound Skin Appearance Assessed,Dry/ ) Scaly -Color (Susana-wound Skin Appearance) Assessed -Temperature (Susana-wound Skin No Abnormality Appearance) (Pt Warm) -Tenderness on Palpation (Susana-wound No Skin Appearance) -Ulcer Cleansing Rinsed/ Irrigated with Saline -Foul Odor after Cleansing No -Anesthetic Used 4% Lidocaine Solution [Edema Assessment] -Lower Limb Edema Present NA - Nurse 2 - General Ulcer CM Notes Start: 01/09/20 10:35 Freq: Status: Active Protocol: Activity Type Activity Date Activity User E-Sign Co-Sign Detail Recorded Client Recorded Date Recorded By Document 01/16/20 10:37 JF [id number] 01/16/20 10:40 [email or web address] 01/16/20 10:37 Wound Center Nurse 2 [Procedure/Treatment] 5-left 4th toe -Correct Patient No -Correct Side, Site, Position No -Correct Procedure No -Procedure Performed No -Post Debridement (cm) - Length 0 -Post Debridement (cm) - Width 0 -Post Debridement (cm) - Depth 0 -Total Square (Post) (cm) 0 -Area of Debridement (cm) - Length 0 -Area of Debridement (cm) - Width 0 -Total Square (Area) (cm) 0 -Wound/Ulcer Outcome Healed- Epithelialized 3-left 2nd toe -Correct Patient No -Correct Side, Site, Position No -Correct Procedure No -Procedure Performed No -Post Debridement (cm) - Length 0 -Post Debridement (cm) - Width 0 -Post Debridement (cm) - Depth 0 -Total Square (Post) (cm) 0 -Area of Debridement (cm) - Length 0 -Area of Debridement (cm) - Width 0 -Total Square (Area) (cm) 0 -Wound/Ulcer Outcome Healed- Epithelialized [See Physician Procedure note for Specifics] Pain Scale: 0-10 Numeric [Pain] -Is Patient Pain Free? Yes - Nurse 3 - General Ulcer D/C NN Start: 01/09/20 10:35 Freq: Status: Active Protocol: Activity Type Activity Date Activity User E-Sign Co-Sign Detail Recorded Client Recorded Date Recorded By Document 01/16/20 10:43 JF [id number] 01/16/20 10:43 01/16/20 10:43 -Is Patient Pain Free? Yes - Visit Discharge [Visit Discharge Information] -Discharge Condition Stable -Ambulatory Status Ambulatory -Transportation Private Auto -Medication Reconcilliation completed Yes & provided to patient/care provider -Clinical Summary of Care Provided Yes Musculoskeletal: No Tenderness to Palpation of Joints or Extremities, Muscle Wasting Neurological: - - Lack of epicritic sensation light touch is consistent with neuropathy status Psych/Mental Status: Normal Affect, Appropriate Debridement Note Post-Debridement Measurements/Treatment - Nurse 2 - General Ulcer CM Notes Start: 01/09/20 10:35 Freq: Status: Active Protocol: Activity Type Activity Date Activity User E-Sign Co-Sign Detail Recorded Client Recorded Date Recorded By Document 01/09/20 11:03 [id number] 01/09/20 11:08 Document 01/16/20 10:37 [id number] 01/16/20 10:40 01/09/20 01/16/20 11:03 10:37 Wound Center Nurse 2 6-left 5th toe -Time 11:03 -Correct Patient No -Correct Side, Site, Position No -Correct Procedure No -Procedure Performed No -Post Debridement (cm) - Length 0 -Post Debridement (cm) - Width 0 -Post Debridement (cm) - Depth 0 -Total Square (Post) (cm) 0 -Area of Debridement (cm) - Length 0 -Area of Debridement (cm) - Width 0 -Total Square (Area) (cm) 0 -Tunneling No -Undermining/Tunneling No -Circular Undermining No -Wound/Ulcer Outcome Healed- Epithelialized -Ulcer Cleansing Rinsed/ Irrigated with Saline -Foul Odor after Cleansing No -Bioengineered Tissue No 5-left 4th toe -Time 11:04 -Correct Patient Yes No -Correct Side, Site, Position Yes No -Correct Procedure Yes No -Procedure Performed Yes No -Type of Procedure Debridement -Clinical Debridement Subcutaneous -Tissue Removed Subcutaneous -Post Debridement (cm) - Length 0.1 0 -Post Debridement (cm) - Width 0.1 0 -Post Debridement (cm) - Depth 0.1 0 -Total Square (Post) (cm) 0.01 0 -Area of Debridement (cm) - Length 0.1 0 -Area of Debridement (cm) - Width 0.1 0 -Total Square (Area) (cm) 0.01 0 -Tunneling No -Undermining/Tunneling No -Circular Undermining No -Wound/Ulcer Outcome Not Healed Healed- Epithelialized -Ulcer Cleansing Rinsed/ Irrigated with Saline -Foul Odor after Cleansing No -Bioengineered Tissue No -Bleeding Controlled with Pressure -Offloading Yes -Type of Offloading Surgical Shoe -Debridement - Subq, 1st 20sq cm No 4-left 3rd toe -Correct Patient No -Correct Side, Site, Position No -Correct Procedure No -Procedure Performed No -Post Debridement (cm) - Length 0 -Post Debridement (cm) - Width 0 -Post Debridement (cm) - Depth 0 -Total Square (Post) (cm) 0 -Area of Debridement (cm) - Length 0 -Area of Debridement (cm) - Width 0 -Total Square (Area) (cm) 0 -Wound/Ulcer Outcome Healed- Epithelialized 3-left 2nd toe -Time 11:05 -Correct Patient Yes No -Correct Side, Site, Position Yes No -Correct Procedure Yes No -Procedure Performed Yes No -Type of Procedure Debridement -Clinical Debridement Subcutaneous -Tissue Removed Subcutaneous -Post Debridement (cm) - Length 1.2 0 -Post Debridement (cm) - Width 0.7 0 -Post Debridement (cm) - Depth 0.1 0 -Total Square (Post) (cm) 0.84 0 -Area of Debridement (cm) - Length 1.2 0 -Area of Debridement (cm) - Width 0.7 0 -Total Square (Area) (cm) 0.84 0 -Tunneling No -Undermining/Tunneling No -Circular Undermining No -Wound/Ulcer Outcome Not Healed Healed- Epithelialized -Ulcer Cleansing Rinsed/ Irrigated with Saline -Foul Odor after Cleansing No -Bioengineered Tissue No -Bleeding Controlled with Pressure -Offloading Yes -Type of Offloading Surgical Shoe -Treatment Response Procedure Tolerated Well -Debridement - Subq, 1st 20sq cm Yes Pain Scale: 0-10 Numeric Is Patient Pain Free? Yes Yes - Nurse 3 - General Ulcer D/C NN Start: 01/09/20 10:35 Freq: Status: Active Protocol: Activity Type Activity Date Activity User E-Sign Co-Sign Detail Recorded Client Recorded Date Recorded By Document 01/09/20 11:27 [id number] 01/09/20 11:28 Document 01/16/20 10:43 [id number] 01/16/20 10:43 01/09/20 01/16/20 11:27 10:43 Wound Care Nurse 3 5-left 4th toe -Ulcer Cleansing Rinsed/ Irrigated with Saline -Primary Dressing Applied Aquacel AG 2x2 -Primary Dressing Covered/Secured with Dry Gauze -Aquacel AG 2x2 1 3-left 2nd toe -Ulcer Cleansing Wound Cleanser -Other Dressing aquacel AG -Primary Dressing Covered/Secured with Dry Gauze, Secured with Tape Treatment Response Procedure Tolerated Well Pain Scale: 0-10 Numeric Is Patient Pain Free? Yes Yes - Visit Discharge Discharge Condition Stable Stable Ambulatory Status Ambulatory Ambulatory Transportation Private Auto Private Auto Medication Reconcilliation completed & No Yes provided to patient/care provider Clinical Summary of Care Provided Yes Yes No debridement was completed today - healed today Assessment/Plan Active Problems (Last Reviewed 01/01/19 @ 09:04 by Samuel MURPHY, PA) Type 2 diabetes mellitus with diabetic polyneuropathy (Chronic) Assessment: Ulcer right hallux, digits 3 and 5 - healed today. 2 and 4 dorsal toes - today. Diabetes with neuropathy. Peripheral vascular disease with arterial calcifications. Venous insufficiency. Bilateral lower extremity edema. Malnutrition suspected Plan: I reviewed and discussed his case. Debridement was not performed today because the ulcer sites have healed. To discontinue dressing care. I do recommend continued off for an additional week to allow the skin to remodel the very fragile site. After week his been completed and he is still doing well, recommend progression to extra-depth protective and supportive shoes prior to returning to work for an additional week. He will actually return to the wound healing center in 2 weeks for reassessment and if everything looks appropriate a work release note will be provided at that time. He is reassured there are no local signs of infection. His labs were previously reviewed as documented in prior notes. Noninvasive vascular lower extremity studies were reviewed and he has triphasic waveforms at bilateral ankles. Ossification of the vessels at the right ankle level are noted and there are mild occlusive disease of the digits on the right foot. The digital status is not checked on the left foot due to the current wrap to toe ulcers. venous Doppler with reflux evaluation was also performed and reviewed. 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 He does not have evidence of critical limb ischemia. A vascular referral was provided and he went to the consult previously. Additional tests are planned. He was advised to follow-up in follow-up around this as recommended and scheduled. To control edema with Tubigrip. I answered all of his questions.
[2020-01-30 10:07] VITALS: BP 153/86; PULSE 101; RESP 16; TEMP 35.7; BMI 38.2
--- NOTE | 2020-01-30 10:49 | PCM.WC.PN ---
(1) Ulcer of left foot with fat layer exposed Status: Resolved Code(s): L97.522 - Non-pressure chronic ulcer of other part of left foot with fat layer exposed (2) Type 2 diabetes mellitus with diabetic polyneuropathy Status: Chronic Code(s): E11.42 - Type 2 diabetes mellitus with diabetic polyneuropathy Type of Wound Date of Service: 01/30/20 Chief Complaint: left foot ulcers History of Wound: 54-year-old male presents to the wound healing center for remaining left foot ulcers. His ulcer site remains healed and he is ready to return to work. Progress of Wound: All sites are healed today - Physical Exam Vital Signs Temp Pulse Resp BP 96.2 F L 101 H 16 153/86 H 01/30/20 10:07 01/30/20 10:07 01/30/20 10:07 01/30/20 10:07 General: Alert, Oriented x3, Cooperative, No apparent distress HEENT: Atraumatic Extremities: No cyanosis, Capillary Refill Less than 3 Seconds, No Calf Tenderness, Diminished Peripheral Pulses, Edema Skin: Ulcer/ Wound - Full epithelialization is noted. No maceration or infection. The skin is atrophic. Wound Measurements and Assessment - Nurse 1 - General Ulcer Measurement Start: 01/09/20 10:35 Freq: Status: Discharge Protocol: Activity Type Activity Date Activity User E-Sign Co-Sign Detail Recorded Client Recorded Date Recorded By Document 01/30/20 10:07 [id number] 01/30/20 10:09 Edit Status 01/30/20 10:48 BKG DAEMON Active=>Discharge [facility] 01/30/20 10:48 BKG DAEMON 01/30/20 10:07 Wound Center Nurse 1 [Edema Assessment] -Lower Limb Edema Present NA - Nurse 2 - General Ulcer CM Notes Start: 01/09/20 10:35 Freq: Status: Discharge Protocol: Activity Type Activity Date Activity User E-Sign Co-Sign Detail Recorded Client Recorded Date Recorded By Document 01/30/20 10:28 [id number] 01/30/20 10:30 Edit Status 01/30/20 10:48 BKG DAEMON Active=>Discharge [facility] 01/30/20 10:48 BKG DAEMON 01/30/20 10:28 Pain Scale: 0-10 Numeric [Pain] -Is Patient Pain Free? Yes - Nurse 3 - General Ulcer D/C NN Start: 01/09/20 10:35 Freq: Status: Discharge Protocol: Activity Type Activity Date Activity User E-Sign Co-Sign Detail Recorded Client Recorded Date Recorded By Document 01/30/20 10:30 [id number] 01/30/20 10:30 Edit Status 01/30/20 10:48 BKG DAEMON Active=>Discharge [id number] 01/30/20 10:48 BKG DAEMON 01/30/20 10:30 -Is Patient Pain Free? Yes - Visit Discharge [Visit Discharge Information] -Discharge Condition Stable -Ambulatory Status Ambulatory -Transportation Private Auto -Medication Reconcilliation completed Yes & provided to patient/care provider -Clinical Summary of Care Provided Yes Musculoskeletal: No Tenderness to Palpation of Joints or Extremities, Muscle Wasting, - - Fifth toe amputation right. Dorsal contracture lesser toes left Neurological: - - Lack of normal epicritic sensation Psych/Mental Status: Normal Affect, Appropriate Debridement Note Post-Debridement Measurements/Treatment WC - Nurse 2 - General Ulcer CM Notes Start: 01/09/20 10:35 Freq: Status: Discharge Protocol: Activity Type Activity Date Activity User E-Sign Co-Sign Detail Recorded Client Recorded Date Recorded By Document 01/09/20 11:03 [id number] 01/09/20 11:08 Document 01/16/20 10:37 [id number] 01/16/20 10:40 Document 01/30/20 10:28 [id number] 01/30/20 10:30 01/09/20 01/16/20 01/30/20 11:03 10:37 10:28 Wound Center Nurse 2 6-left 5th toe -Time 11:03 -Correct Patient No -Correct Side, Site, Position No -Correct Procedure No -Procedure Performed No -Post Debridement (cm) - Length 0 -Post Debridement (cm) - Width 0 -Post Debridement (cm) - Depth 0 -Total Square (Post) (cm) 0 -Area of Debridement (cm) - Length 0 -Area of Debridement (cm) - Width 0 -Total Square (Area) (cm) 0 -Tunneling No -Undermining/Tunneling No -Circular Undermining No -Wound/Ulcer Outcome Healed- Epithelialized -Ulcer Cleansing Rinsed/ Irrigated with Saline -Foul Odor after Cleansing No -Bioengineered Tissue No 5-left 4th toe -Time 11:04 -Correct Patient Yes No -Correct Side, Site, Position Yes No -Correct Procedure Yes No -Procedure Performed Yes No -Type of Procedure Debridement -Clinical Debridement Subcutaneous -Tissue Removed Subcutaneous -Post Debridement (cm) - Length 0.1 0 -Post Debridement (cm) - Width 0.1 0 -Post Debridement (cm) - Depth 0.1 0 -Total Square (Post) (cm) 0.01 0 -Area of Debridement (cm) - Length 0.1 0 -Area of Debridement (cm) - Width 0.1 0 -Total Square (Area) (cm) 0.01 0 -Tunneling No -Undermining/Tunneling No -Circular Undermining No -Wound/Ulcer Outcome Not Healed Healed- Epithelialized -Ulcer Cleansing Rinsed/ Irrigated with Saline -Foul Odor after Cleansing No -Bioengineered Tissue No -Bleeding Controlled with Pressure -Offloading Yes -Type of Offloading Surgical Shoe -Debridement - Subq, 1st 20sq cm No 4-left 3rd toe -Correct Patient No -Correct Side, Site, Position No -Correct Procedure No -Procedure Performed No -Post Debridement (cm) - Length 0 -Post Debridement (cm) - Width 0 -Post Debridement (cm) - Depth 0 -Total Square (Post) (cm) 0 -Area of Debridement (cm) - Length 0 -Area of Debridement (cm) - Width 0 -Total Square (Area) (cm) 0 -Wound/Ulcer Outcome Healed- Epithelialized 3-left 2nd toe -Time 11:05 -Correct Patient Yes No -Correct Side, Site, Position Yes No -Correct Procedure Yes No -Procedure Performed Yes No -Type of Procedure Debridement -Clinical Debridement Subcutaneous -Tissue Removed Subcutaneous -Post Debridement (cm) - Length 1.2 0 -Post Debridement (cm) - Width 0.7 0 -Post Debridement (cm) - Depth 0.1 0 -Total Square (Post) (cm) 0.84 0 -Area of Debridement (cm) - Length 1.2 0 -Area of Debridement (cm) - Width 0.7 0 -Total Square (Area) (cm) 0.84 0 -Tunneling No -Undermining/Tunneling No -Circular Undermining No -Wound/Ulcer Outcome Not Healed Healed- Epithelialized -Ulcer Cleansing Rinsed/ Irrigated with Saline -Foul Odor after Cleansing No -Bioengineered Tissue No -Bleeding Controlled with Pressure -Offloading Yes -Type of Offloading Surgical Shoe -Treatment Response Procedure Tolerated Well -Debridement - Subq, 1st 20sq cm Yes Pain Scale: 0-10 Numeric Is Patient Pain Free? Yes Yes Yes - Nurse 3 - General Ulcer D/C NN Start: 01/09/20 10:35 Freq: Status: Discharge Protocol: Activity Type Activity Date Activity User E-Sign Co-Sign Detail Recorded Client Recorded Date Recorded By Document 01/09/20 11:27 RB [id number] 01/09/20 11:28 RB Document 01/16/20 10:43 JF [id number] 01/16/20 10:43 JF Document 01/30/20 10:30 JF [id number] 01/30/20 10:30 JF 01/09/20 01/16/20 01/30/20 11:27 10:43 10:30 Wound Care Nurse 3 5-left 4th toe -Ulcer Cleansing Rinsed/ Irrigated with Saline -Primary Dressing Applied Aquacel AG 2x2 -Primary Dressing Covered/Secured with Dry Gauze -Aquacel AG 2x2 1 3-left 2nd toe -Ulcer Cleansing Wound Cleanser -Other Dressing aquacel AG -Primary Dressing Covered/Secured with Dry Gauze, Secured with Tape Treatment Response Procedure Tolerated Well Pain Scale: 0-10 Numeric Is Patient Pain Free? Yes Yes Yes - Visit Discharge Discharge Condition Stable Stable Stable Ambulatory Status Ambulatory Ambulatory Ambulatory Transportation Private Auto Private Auto Private Auto Medication Reconcilliation completed & No Yes Yes provided to patient/care provider Clinical Summary of Care Provided Yes Yes Yes No debridement was completed today - Healed Assessment/Plan Assessment: ulcer right hallux, digits 3 and 5 - healed today. 2 and 4 dorsal toes -healed today. Diabetes with neuropathy. Peripheral vascular disease with arterial calcifications. Venous insufficiency. Bilateral lower extremity edema. Malnutrition suspected Plan: I reviewed and discussed his case. Debridement was not performed today because the ulcer sites have healed. To discontinue dressing care. He was advised to continue with extra-depth protective and supportive shoes. A work note was provided for him to return to full duties this upcoming Tuesday. He is reassured there are no local signs of infection. His labs were previously reviewed as documented in prior notes. Noninvasive vascular lower extremity studies were reviewed and he has triphasic waveforms at bilateral ankles. He is discharged from the wound healing center at this time. A prescription for compression stockings were provided to maintain edema management. Tubigrip's are fitted and dispensed today also. To follow-up with the foot and ankle center with Dr. Bustillos as scheduled already. I answered all his questions.
== END 2020-01-30 10:48 | disposition home or self-care (01) ==
LOC: WC 10:00
PROVIDERS: PCP Student in an Organized Health Care Education/Training Program; Referring Provider Podiatrist; Visit Provider Podiatrist
DX: E11.621 Type 2 diabetes mellitus with foot ulcer (principal); L97.522 Non-pressure chronic ulcer of other part of left foot with fat layer exposed; E11.51 Type 2 diabetes mellitus with diabetic peripheral angiopathy without gangrene; E11.42 Type 2 diabetes mellitus with diabetic polyneuropathy; I87.2 Venous insufficiency (chronic) (peripheral); Z79.82 Long term (current) use of aspirin; Z79.4 Long term (current) use of insulin; Z79.899 Other long term (current) drug therapy
CPT/HCPCS: 11042; 99212; G0463

== ENCOUNTER → 2020-03-31 13:25 | Outpatient (CLI) | payer OTHER, SELFPAY ==
--- NOTE | 2020-03-31 13:28 | ADUL_ITS ---
Reason For Study: Atherosclerosis Left Velocities Ext Iliac Artery, dist = 128.6 cm./sec. Common Femoral Artery, mid = 122 cm./sec. Supf. Femoral Artery, prox = 167.3 cm./sec. Supf. Femoral Artery, mid = 83.3 cm./sec. Supf. Femoral Artery, dist = 52.8 cm./sec. Profunda Femoral Artery = 76.9 cm./sec. Popliteal Artery, mid = 30.3 cm./sec. Post. Tibial Artery, prox = 18.7 cm./sec. Post Tibial Artery, dist. = 11.3 cm./sec. WARP HANGER, mid, No flow. PeroA, prox-mid, No flow. Peroneal Artery,dist. = 25 cm./sec. Ant.Tibial Artery, prox = 36.3 cm./sec. Ant Tibial Artery, mid = 50.2 cm./sec. Ant. Tibial Artery, distal = 56.3 cm./sec. Procedure Exam performed in department. Interpretation Summary Left leg with normal flow noted through popliteal artery and then segments peroneal and posterior tibial occluded. Ordering Physician: Rob Ny Referring Physician: Gerald Tee Performed By: Federica Hart RVT
== END ==
PROVIDERS: PCP Student in an Organized Health Care Education/Training Program; Referring Provider Surgery Vascular Surgery; Visit Provider Surgery Vascular Surgery
DX: I70.245 Atherosclerosis of native arteries of left leg with ulceration of other part of foot (principal)
CPT/HCPCS: 93926

== ENCOUNTER 2020-08-06 09:30 | Outpatient (RCR) | payer OTHER, SELFPAY ==
[2020-07-30 09:17] VITALS: BP 116/81; PULSE 118; RESP 20; TEMP 36.6; BMI 37.4
[2020-07-30 10:24] VITALS: BP 116/81
--- NOTE | 2020-07-30 11:29 | HP.PCM_ITS ---
(1) Type 2 diabetes mellitus with diabetic polyneuropathy Status: Chronic Code(s): E11.42 - Type 2 diabetes mellitus with diabetic polyneuropathy (2) Bullous pemphigoid Status: Suspected Code(s): L12.0 - Bullous pemphigoid Comment: differential diagnosis; work up in process (3) Ulcer of right foot with fat layer exposed Status: Chronic Code(s): L97.512 - Non-pressure chronic ulcer of other part of right foot with fat layer exposed (4) Ulcer of left foot with fat layer exposed Status: Chronic Code(s): L97.522 - Non-pressure chronic ulcer of other part of left foot with fat layer exposed (5) Leg edema Status: Chronic Code(s): R60.0 - Localized edema History of Present Illness Date of Service: 07/30/20 Chief Complaint: left and right foot ulcers History of Wound: This 55-year-old male presents to the wound healing center for management of bilateral forefoot ulcers after developing acute onset of very large blisters. The onset of his injury was 3. He also reports intermittent blisters to his hands and fingers. He had a biopsy performed at the foot and ankle center approximately 1-1/2 weeks ago. He thinks the onset occurred after he tried to wear shoes that were too small and when he had a swelling exacerbation. He denies redness or odor. He denies fever, chill, nausea, vomiting. He is recently wearing offloading surgical shoes. Past Medical History Past Medical History: Chronic Problems (Last Reviewed 01/01/19 @ 09:04 by Samuel MURPHY, JEFFREY) Ulcer of right foot with fat layer exposed (Chronic) Ulcer of left foot with fat layer exposed (Chronic) Type 2 diabetes mellitus with diabetic polyneuropathy (Chronic) Venous insufficiency (Chronic) Leg edema (Chronic) Type 2 diabetes mellitus with diabetic polyneuropathy (Chronic) Type II diabetes mellitus (Chronic) History of seizures as a child (Chronic) Hypertension (Chronic) Obesity (Chronic) Surgical History: cholecystectomy Allergies/Adverse Reactions: Allergies acetaminophen [From Percocet] Adverse Reaction (Verified 07/30/20 09:39) Nausea oxycodone [From Percocet] Adverse Reaction (Verified 07/30/20 09:39) Nausea Home Medications: Ambulatory Orders Medication Instructions Recorded Insulin Detemir [Levemir FlexPen] 32 units SC QHS 10/01/14 Insulin Lispro [Humalog KwikPen] 8 unit SQ PRN PRN 10/01/14 Nifedipine [Nifedipine ER] 90 mg PO DAILY 10/01/14 Ramipril [Altace] 10 mg PO DAILY 10/01/14 Ascorbic Acid [Vitamin C] 500 mg PO DAILY 04/29/17 Aspirin [Aspir-Low] 81 mg PO DAILY 04/29/17 Atorvastatin Calcium [Lipitor] 10 mg PO DAILY 04/29/17 Diphenhydramine HCl [Benadryl 25 mg PO PRN PRN 04/29/17 Allergy] Dulaglutide [Trulicity] 0.75 mg SQ ENCINAS 04/29/17 Multivitamin [Multiple Vitamins] 1 ea PO DAILY 04/29/17 - Family History Maternal No pertinent history Paternal No pertinent history Smoking Status: Never smoker Review of Systems Constitutional: Denies: Chills, Fever Musculoskeletal: Reports: Foot Pain Skin: Reports: Skin Changes, Wounds Neurological: Reports: Numbness - Physical Exam Vital Signs Temp Pulse Resp BP 97.9 F 118 H 20 H 116/81 H 07/30/20 09:17 07/30/20 09:17 07/30/20 09:17 07/30/20 10:24 General: Alert, Oriented x3, Cooperative, No apparent distress HEENT: Atraumatic Extremities: No cyanosis, Capillary Refill Less than 3 Seconds, No Calf Tenderne ss, Diminished Peripheral Pulses, Edema Skin: Ulcer/ Wound - No purulence, erythema, streaking, odor, infection. Epithelialization progression is noted from prior office visits. Superficial blister tissue has been removed. His skin is atrophic with lack of hair Wound Measurements and Assessment WC - Nurse 1 - General Ulcer Measurement Start: 07/30/20 09:17 Freq: Status: Active Protocol: Activity Type Activity Date Activity User E-Sign Co-Sign Detail Recorded Client Recorded Date Recorded By Document 07/30/20 09:17 DL [id number] 07/30/20 09:37 DL 07/30/20 09:17 Wound Center Nurse 1 [Ulcer Assessment] #13 L 5th Toe Cluster -Current Size (cm) - Length 2.4 -Current Size (cm) - Width 1.1 -Current Size (cm) - Depth 0.1 -Total Square Cm 2.64 -Photo Taken Yes -Exudate Amt Medium -Wound Margin Thickened -Granulation Amt Medium (34-66%) -Granulation Quality Red -Necrosis Amt Medium (34-66%) -Necrotic Tissue Type Adherent Slough -Structure Exposed N/A -Texture (Susana-wound Skin Appearance) Localized Edema ,Scarring -Moisture (Susana-wound Skin Appearance Dry/Scaly ) -Color (Susana-wound Skin Appearance) No Abnormality -Temperature (Susana-wound Skin No Abnormality Appearance) (Pt Warm) -Tenderness on Palpation (Susana-wound No Skin Appearance) -Ulcer Cleansing Wound Cleanser -Foul Odor after Cleansing No -Anesthetic Used 4% Lidocaine Solution #12 L 4th Toe -Current Size (cm) - Length 2 -Current Size (cm) - Width 1.5 -Current Size (cm) - Depth 0.1 -Total Square Cm 3.0 -Photo Taken Yes -Exudate Amt Medium -Wound Margin Thickened -Granulation Amt Medium (34-66%) -Granulation Quality Red -Necrosis Amt Medium (34-66%) -Necrotic Tissue Type Adherent Slough -Structure Exposed N/A -Texture (Susana-wound Skin Appearance) Localized Edema ,Scarring -Moisture (Susana-wound Skin Appearance Dry/Scaly ) -Color (Susana-wound Skin Appearance) No Abnormality -Temperature (Susana-wound Skin No Abnormality Appearance) (Pt Warm) -Tenderness on Palpation (Susana-wound No Skin Appearance) -Ulcer Cleansing Wound Cleanser -Foul Odor after Cleansing No -Anesthetic Used 4% Lidocaine Solution #11 L 3rd toe -Current Size (cm) - Length 2 -Current Size (cm) - Width 1.5 -Current Size (cm) - Depth 0.1 -Total Square Cm 3.0 -Photo Taken Yes -Classification - Thickness Full Thickness without Exposed Support Structure -Classification - Francois Grading ( Grade 3 Diabetic Ulcer) -Exudate Amt Medium -Wound Margin Thickened -Granulation Amt Medium (34-66%) -Granulation Quality Red -Necrosis Amt Medium (34-66%) -Necrotic Tissue Type Adherent Slough -Structure Exposed N/A -Texture (Susana-wound Skin Appearance) Localized Edema ,Scarring -Moisture (Susana-wound Skin Appearance Dry/Scaly ) -Color (Susana-wound Skin Appearance) No Abnormality -Temperature (Susana-wound Skin No Abnormality Appearance) (Pt Warm) -Tenderness on Palpation (Susana-wound No Skin Appearance) -Ulcer Cleansing Wound Cleanser -Foul Odor after Cleansing No -Anesthetic Used 4% Lidocaine Solution #10 L 2nd Toe -Current Size (cm) - Length 2 -Current Size (cm) - Width 2.2 -Current Size (cm) - Depth 0.1 -Total Square Cm 4.4 -Photo Taken Yes -Classification - Thickness Full Thickness without Exposed Support Structure -Classification - Francois Grading ( Grade 3 Diabetic Ulcer) -Exudate Amt Medium -Wound Margin Thickened -Granulation Amt Medium (34-66%) -Granulation Quality Red -Necrosis Amt Medium (34-66%) -Necrotic Tissue Type Adherent Slough -Structure Exposed N/A -Texture (Susana-wound Skin Appearance) Localized Edema ,Scarring -Moisture (Susana-wound Skin Appearance Dry/Scaly ) -Color (Susana-wound Skin Appearance) No Abnormality -Temperature (Susana-wound Skin No Abnormality Appearance) (Pt Warm) -Tenderness on Palpation (Susana-wound No Skin Appearance) -Ulcer Cleansing Wound Cleanser -Foul Odor after Cleansing No -Anesthetic Used 4% Lidocaine Solution #9 left Grt Toe Plantar Cluster -Current Size (cm) - Length 11 -Current Size (cm) - Width 3.2 -Current Size (cm) - Depth 0.1 -Total Square Cm 35.2 -Photo Taken Yes -Exudate Amt Medium -Exudate Type Serosanguineous -Wound Margin Thickened -Granulation Amt Medium (34-66%) -Granulation Quality Red -Necrosis Amt Medium (34-66%) -Necrotic Tissue Type Eschar -Structure Exposed N/A -Texture (Susana-wound Skin Appearance) Localized Edema ,Scarring -Moisture (Susana-wound Skin Appearance Dry/Scaly ) -Color (Susana-wound Skin Appearance) No Abnormality -Temperature (Susana-wound Skin No Abnormality Appearance) (Pt Warm) -Tenderness on Palpation (Susana-wound No Skin Appearance) -Ulcer Cleansing Wound Cleanser -Foul Odor after Cleansing No -Anesthetic Used 4% Lidocaine Solution #8 R Grt Toe Cluster -Current Size (cm) - Length 4.2 -Current Size (cm) - Width 3.2 -Current Size (cm) - Depth 0.1 -Total Square Cm 13.44 -Photo Taken Yes -Classification - Thickness Full Thickness without Exposed Support Structure -Classification - Francois Grading ( Grade 3 Diabetic Ulcer) -Exudate Amt Small -Exudate Type Serosanguineous -Wound Margin Thickened -Granulation Amt Medium (34-66%) -Granulation Quality [place] -Necrosis Amt Medium (34-66%) -Necrotic Tissue Type Adherent Slough -Structure Exposed N/A -Texture (Susana-wound Skin Appearance) Localized Edema ,Scarring -Moisture (Susana-wound Skin Appearance Dry/Scaly ) -Color (Susana-wound Skin Appearance) No Abnormality -Temperature (Susana-wound Skin No Abnormality Appearance) (Pt Warm) -Tenderness on Palpation (Susana-wound No Skin Appearance) -Ulcer Cleansing Wound Cleanser -Foul Odor after Cleansing No -Anesthetic Used 4% Lidocaine Solution WC - Nurse 2 - General Ulcer CM Notes Start: 07/30/20 09:17 Freq: Status: Active Protocol: Activity Type Activity Date Activity User E-Sign Co-Sign Detail Recorded Client Recorded Date Recorded By Document 07/30/20 09:46 KASEY [id number] 07/30/20 10:02 KASEY 07/30/20 09:46 Wound Center Nurse 2 [Procedure/Treatment] #13 L 5th Toe Cluster -Time 09:53 -Correct Patient Yes -Correct Side, Site, Position Yes -Correct Procedure Yes -Procedure Performed Yes -Type of Procedure Debridement -Clinical Debridement Subcutaneous -Tissue Removed Subcutaneous -Post Debridement (cm) - Length 2.8 -Post Debridement (cm) - Width 1.4 -Post Debridement (cm) - Depth 0.1 -Total Square (Post) (cm) 3.92 -Area of Debridement (cm) - Length 2.8 -Area of Debridement (cm) - Width 1.4 -Total Square (Area) (cm) 3.92 -Tunneling No -Undermining/Tunneling No -Circular Undermining No -Wound/Ulcer Outcome Not Healed -Ulcer Cleansing Rinsed/ Irrigated with Saline -Foul Odor after Cleansing No -Bioengineered Tissue No -Bleeding Controlled with Pressure -Offloading Yes -Type of Offloading Surgical Shoe -Treatment Response Procedure Tolerated Well -Debridement - Subq, 1st 20sq cm Yes -Debridement, SubQ, ea addt'l 20sq cm 1 or part thereof #12 L 4th Toe -Time 09:53 -Correct Patient Yes -Correct Side, Site, Position Yes -Correct Procedure Yes -Procedure Performed Yes -Type of Procedure Debridement -Clinical Debridement Subcutaneous -Tissue Removed Subcutaneous -Post Debridement (cm) - Length 1.5 -Post Debridement (cm) - Width 1 -Post Debridement (cm) - Depth 0.1 -Total Square (Post) (cm) 1.5 -Area of Debridement (cm) - Length 1.5 -Area of Debridement (cm) - Width 1 -Total Square (Area) (cm) 1.5 -Tunneling No -Undermining/Tunneling No -Circular Undermining No -Wound/Ulcer Outcome Not Healed -Ulcer Cleansing Rinsed/ Irrigated with Saline -Foul Odor after Cleansing No -Bioengineered Tissue No -Bleeding Controlled with Pressure -Offloading Yes -Type of Offloading Surgical Shoe -Treatment Response Procedure Tolerated Well -Debridement - Subq, 1st 20sq cm No #11 L 3rd toe -Time 09:54 -Correct Patient Yes -Correct Side, Site, Position Yes -Correct Procedure Yes -Procedure Performed Yes -Type of Procedure Debridement -Clinical Debridement Subcutaneous -Tissue Removed Subcutaneous -Post Debridement (cm) - Length 0.8 -Post Debridement (cm) - Width 0.4 -Post Debridement (cm) - Depth 0.1 -Total Square (Post) (cm) 0.32 -Area of Debridement (cm) - Length 0.8 -Area of Debridement (cm) - Width 0.4 -Total Square (Area) (cm) 0.32 -Tunneling No -Undermining/Tunneling No -Circular Undermining No -Wound/Ulcer Outcome Not Healed -Ulcer Cleansing Rinsed/ Irrigated with Saline -Foul Odor after Cleansing No -Bioengineered Tissue No -Bleeding Controlled with Pressure -Offloading Yes -Type of Offloading Surgical Shoe -Treatment Response Procedure Tolerated Well -Debridement - Subq, 1st 20sq cm No #10 L 2nd Toe -Time 09:54 -Correct Patient Yes -Correct Side, Site, Position Yes -Correct Procedure Yes -Procedure Performed Yes -Type of Procedure Debridement -Clinical Debridement Subcutaneous -Tissue Removed Subcutaneous -Post Debridement (cm) - Length 1.9 -Post Debridement (cm) - Width 1.9 -Post Debridement (cm) - Depth 0.1 -Total Square (Post) (cm) 3.61 -Area of Debridement (cm) - Length 1.9 -Area of Debridement (cm) - Width 1.9 -Total Square (Area) (cm) 3.61 -Tunneling No -Undermining/Tunneling No -Circular Undermining No -Wound/Ulcer Outcome Not Healed -Ulcer Cleansing Rinsed/ Irrigated with Saline -Foul Odor after Cleansing No -Bioengineered Tissue No -Bleeding Controlled with Pressure -Offloading Yes -Type of Offloading Surgical Shoe -Treatment Response Procedure Tolerated Well -Debridement - Subq, 1st 20sq cm No #9 left Grt Toe Plantar Cluster -Time 09:55 -Correct Patient Yes -Correct Side, Site, Position Yes -Correct Procedure Yes -Procedure Performed Yes -Type of Procedure Debridement -Clinical Debridement Subcutaneous -Tissue Removed Subcutaneous -Post Debridement (cm) - Length 10.5 -Post Debridement (cm) - Width 3 -Post Debridement (cm) - Depth 0.1 -Total Square (Post) (cm) 31.5 -Area of Debridement (cm) - Length 10.5 -Area of Debridement (cm) - Width 3 -Total Square (Area) (cm) 31.5 -Tunneling No -Undermining/Tunneling No -Circular Undermining No -Wound/Ulcer Outcome Not Healed -Ulcer Cleansing Rinsed/ Irrigated with Saline -Foul Odor after Cleansing No -Bioengineered Tissue No -Bleeding Controlled with Pressure -Offloading Yes -Type of Offloading Surgical Shoe -Treatment Response Procedure Tolerated Well -Debridement - Subq, 20sq cm No #8 R Grt Toe Cluster -Time 09:51 -Correct Patient Yes -Correct Side, Site, Position Yes -Correct Procedure Yes -Procedure Performed Yes -Type of Procedure Debridement -Clinical Debridement Subcutaneous -Tissue Removed Subcutaneous -Post Debridement (cm) - Length 3 -Post Debridement (cm) - Width 1.5 -Post Debridement (cm) - Depth 0.1 -Total Square (Post) (cm) 4.5 -Area of Debridement (cm) - Length 3 -Area of Debridement (cm) - Width 1.5 -Total Square (Area) (cm) 4.5 -Tunneling No -Undermining/Tunneling No -Circular Undermining No -Wound/Ulcer Outcome Not Healed -Ulcer Cleansing Rinsed/ Irrigated with Saline -Foul Odor after Cleansing No -Bioengineered Tissue No -Bleeding Controlled with Pressure -Offloading Yes -Type of Offloading Surgical Shoe -Treatment Response Procedure Tolerated Well -Debridement - Subq, 1st 20sq cm No [See Physician Procedure note for Specifics] Pain Scale: 0-10 Numeric [Pain] -Is Patient Pain Free? Yes - Nurse 3 - General Ulcer D/C NN Start: 07/30/20 09:17 Freq: Status: Active Protocol: Activity Type Activity Date Activity User E-Sign Co-Sign Detail Recorded Client Recorded Date Recorded By Document 07/30/20 10:24 RB [id number] 07/30/20 10:26 RB 07/30/20 10:24 Wound Care Nurse 3 [Wound Dressing] #13 L 5th Toe Cluster -Ulcer Cleansing Rinsed/ Irrigated with Saline -Primary Dressing Applied C Hydrogel ($), NonAdherent Contact Layer -Primary Dressing Covered/Secured Dry Gauze,Dry with Gauze & Roll Gauze,Secured with Tape #12 L 4th Toe -Ulcer Cleansing Rinsed/ Irrigated with Saline -Primary Dressing Applied NonAdherent Contact Layer -Other Dressing hydrogel -Primary Dressing Covered/Secured Dry Gauze & with Roll Gauze, Secured with Tape #11 L 3rd toe -Ulcer Cleansing Rinsed/ Irrigated with Saline -Primary Dressing Applied NonAdherent Contact Layer -Other Dressing hydrogel -Primary Dressing Covered/Secured Dry Gauze & with Roll Gauze, Secured with Tape #10 L 2nd Toe -Ulcer Cleansing Rinsed/ Irrigated with Saline -Primary Dressing Applied NonAdherent Contact Layer -Other Dressing hydrogel -Primary Dressing Covered/Secured Dry Gauze & with Roll Gauze, Secured with Tape #9 left Grt Toe Plantar Cluster -Ulcer Cleansing Rinsed/ Irrigated with Saline -Primary Dressing Applied NonAdherent Contact Layer -Other Dressing hydrogel -Primary Dressing Covered/Secured Dry Gauze & with Roll Gauze, Secured with Tape #8 R Grt Toe Cluster -Ulcer Cleansing Rinsed/ Irrigated with Saline -Primary Dressing Applied NonAdherent Contact Layer -Other Dressing hydrogel -Primary Dressing Covered/Secured Dry Gauze & with Roll Gauze, Secured with Tape [Post Procedure Tolerated] -Treatment Response Procedure Tolerated Well Vital Signs [Blood Pressure] -Blood Pressure (90/60-120/80) 116/81 H -Blood Pressure Mean (mm Hg) 92 -Source Monitor -Position Semi-Fowlers -Blood Pressure Location Left Arm Pain Scale: 0-10 Numeric [Pain] -Is Patient Pain Free? Yes - Visit Discharge [Visit Discharge Information] -Discharge Condition Stable -Ambulatory Status Ambulatory -Transportation Private Auto -Medication Reconcilliation completed No & provided to patient/care provider -Clinical Summary of Care Provided Yes Musculoskeletal: Muscle Wasting, - - Compartment soft to palpate bilateral lower extremities Neurological: - - Lack of full normal epicritic sensation light touch consistent with neuropathic status Psych/Mental Status: Normal Affect, Appropriate Debridement Note Post-Debridement Measurements/Treatment WC - Nurse 2 - General Ulcer CM Notes Start: 07/30/20 09:17 Freq: Status: Active Protocol: Activity Type Activity Date Activity User E-Sign Co-Sign Detail Recorded Client Recorded Date Recorded By Document 07/30/20 09:46 KASEY [id number] 07/30/20 10:02 KASEY 07/30/20 09:46 Wound Center Nurse 2 #13 L 5th Toe Cluster -Time 09:53 -Correct Patient Yes -Correct Side, Site, Position Yes -Correct Procedure Yes -Procedure Performed Yes -Type of Procedure Debridement -Clinical Debridement Subcutaneous -Tissue Removed Subcutaneous -Post Debridement (cm) - Length 2.8 -Post Debridement (cm) - Width 1.4 -Post Debridement (cm) - Depth 0.1 -Total Square (Post) (cm) 3.92 -Area of Debridement (cm) - Length 2.8 -Area of Debridement (cm) - Width 1.4 -Total Square (Area) (cm) 3.92 -Tunneling No -Undermining/Tunneling No -Circular Undermining No -Wound/Ulcer Outcome Not Healed -Ulcer Cleansing Rinsed/ Irrigated with Saline -Foul Odor after Cleansing No -Bioengineered Tissue No -Bleeding Controlled with Pressure -Offloading Yes -Type of Offloading Surgical Shoe -Treatment Response Procedure Tolerated Well -Debridement - Subq, 1st 20sq cm Yes -Debridement, SubQ, ea addt'l 20sq cm 1 or part thereof #12 L 4th Toe -Time 09:53 -Correct Patient Yes -Correct Side, Site, Position Yes -Correct Procedure Yes -Procedure Performed Yes -Type of Procedure Debridement -Clinical Debridement Subcutaneous -Tissue Removed Subcutaneous -Post Debridement (cm) - Length 1.5 -Post Debridement (cm) - Width 1 -Post Debridement (cm) - Depth 0.1 -Total Square (Post) (cm) 1.5 -Area of Debridement (cm) - Length 1.5 -Area of Debridement (cm) - Width 1 -Total Square (Area) (cm) 1.5 -Tunneling No -Undermining/Tunneling No -Circular Undermining No -Wound/Ulcer Outcome Not Healed -Ulcer Cleansing Rinsed/ Irrigated with Saline -Foul Odor after Cleansing No -Bioengineered Tissue No -Bleeding Controlled with Pressure -Offloading Yes -Type of Offloading Surgical Shoe -Treatment Response Procedure Tolerated Well -Debridement - Subq, 1st 20sq cm No #11 L 3rd toe -Time 09:54 -Correct Patient Yes -Correct Side, Site, Position Yes -Correct Procedure Yes -Procedure Performed Yes -Type of Procedure Debridement -Clinical Debridement Subcutaneous -Tissue Removed Subcutaneous -Post Debridement (cm) - Length 0.8 -Post Debridement (cm) - Width 0.4 -Post Debridement (cm) - Depth 0.1 -Total Square (Post) (cm) 0.32 -Area of Debridement (cm) - Length 0.8 -Area of Debridement (cm) - Width 0.4 -Total Square (Area) (cm) 0.32 -Tunneling No -Undermining/Tunneling No -Circular Undermining No -Wound/Ulcer Outcome Not Healed -Ulcer Cleansing Rinsed/ Irrigated with Saline -Foul Odor after Cleansing No -Bioengineered Tissue No -Bleeding Controlled with Pressure -Offloading Yes -Type of Offloading Surgical Shoe -Treatment Response Procedure Tolerated Well -Debridement - Subq, 1st 20sq cm No #10 L 2nd Toe -Time 09:54 -Correct Patient Yes -Correct Side, Site, Position Yes -Correct Procedure Yes -Procedure Performed Yes -Type of Procedure Debridement -Clinical Debridement Subcutaneous -Tissue Removed Subcutaneous -Post Debridement (cm) - Length 1.9 -Post Debridement (cm) - Width 1.9 -Post Debridement (cm) - Depth 0.1 -Total Square (Post) (cm) 3.61 -Area of Debridement (cm) - Length 1.9 -Area of Debridement (cm) - Width 1.9 -Total Square (Area) (cm) 3.61 -Tunneling No -Undermining/Tunneling No -Circular Undermining No -Wound/Ulcer Outcome Not Healed -Ulcer Cleansing Rinsed/ Irrigated with Saline -Foul Odor after Cleansing No -Bioengineered Tissue No -Bleeding Controlled with Pressure -Offloading Yes -Type of Offloading Surgical Shoe -Treatment Response Procedure Tolerated Well -Debridement - Subq, 1st 20sq cm No #9 left Grt Toe Plantar Cluster -Time 09:55 -Correct Patient Yes -Correct Side, Site, Position Yes -Correct Procedure Yes -Procedure Performed Yes -Type of Procedure Debridement -Clinical Debridement Subcutaneous -Tissue Removed Subcutaneous -Post Debridement (cm) - Length 10.5 -Post Debridement (cm) - Width 3 -Post Debridement (cm) - Depth 0.1 -Total Square (Post) (cm) 31.5 -Area of Debridement (cm) - Length 10.5 -Area of Debridement (cm) - Width 3 -Total Square (Area) (cm) 31.5 -Tunneling No -Undermining/Tunneling No -Circular Undermining No -Wound/Ulcer Outcome Not Healed -Ulcer Cleansing Rinsed/ Irrigated with Saline -Foul Odor after Cleansing No -Bioengineered Tissue No -Bleeding Controlled with Pressure -Offloading Yes -Type of Offloading Surgical Shoe -Treatment Response Procedure Tolerated Well -Debridement - Subq, 1st 20sq cm No #8 R Grt Toe Cluster -Time 09:51 -Correct Patient Yes -Correct Side, Site, Position Yes -Correct Procedure Yes -Procedure Performed Yes -Type of Procedure Debridement -Clinical Debridement Subcutaneous -Tissue Removed Subcutaneous -Post Debridement (cm) - Length 3 -Post Debridement (cm) - Width 1.5 -Post Debridement (cm) - Depth 0.1 -Total Square (Post) (cm) 4.5 -Area of Debridement (cm) - Length 3 -Area of Debridement (cm) - Width 1.5 -Total Square (Area) (cm) 4.5 -Tunneling No -Undermining/Tunneling No -Circular Undermining No -Wound/Ulcer Outcome Not Healed -Ulcer Cleansing Rinsed/ Irrigated with Saline -Foul Odor after Cleansing No -Bioengineered Tissue No -Bleeding Controlled with Pressure -Offloading Yes -Type of Offloading Surgical Shoe -Treatment Response Procedure Tolerated Well -Debridement - Subq, 1st 20sq cm No Pain Scale: 0-10 Numeric Is Patient Pain Free? Yes WC - Nurse 3 - General Ulcer D/C NN Start: 07/30/20 09:17 Freq: Status: Active Protocol: Activity Type Activity Date Activity User E-Sign Co-Sign Detail Recorded Client Recorded Date Recorded By Document 07/30/20 10:24 RB [id number] 07/30/20 10:26 RB 03/24/21 10:24 Wound Care Nurse 3 #13 L 5th Toe Cluster -Ulcer Cleansing Rinsed/ Irrigated with Saline -Primary Dressing Applied C Hydrogel ($), NonAdherent Contact Layer -Primary Dressing Covered/Secured with Dry Gauze,Dry Gauze & Roll Gauze,Secured with Tape #12 L 4th Toe -Ulcer Cleansing Rinsed/ Irrigated with Saline -Primary Dressing Applied NonAdherent Contact Layer -Other Dressing hydrogel -Primary Dressing Covered/Secured with Dry Gauze & Roll Gauze, Secured with Tape #11 L 3rd toe -Ulcer Cleansing Rinsed/ Irrigated with Saline -Primary Dressing Applied NonAdherent Contact Layer -Other Dressing hydrogel -Primary Dressing Covered/Secured with Dry Gauze & Roll Gauze, Secured with Tape #10 L 2nd Toe -Ulcer Cleansing Rinsed/ Irrigated with Saline -Primary Dressing Applied NonAdherent Contact Layer -Other Dressing hydrogel -Primary Dressing Covered/Secured with Dry Gauze & Roll Gauze, Secured with Tape #9 left Grt Toe Plantar Cluster -Ulcer Cleansing Rinsed/ Irrigated with Saline -Primary Dressing Applied NonAdherent Contact Layer -Other Dressing hydrogel -Primary Dressing Covered/Secured with Dry Gauze & Roll Gauze, Secured with Tape #8 R Grt Toe Cluster -Ulcer Cleansing Rinsed/ Irrigated with Saline -Primary Dressing Applied NonAdherent Contact Layer -Other Dressing hydrogel -Primary Dressing Covered/Secured with Dry Gauze & Roll Gauze, Secured with Tape Treatment Response Procedure Tolerated Well Vital Signs Blood Pressure (90/60-120/80) 116/81 H Blood Pressure Mean (mm Hg) 92 Source Monitor Position Semi-Fowlers Blood Pressure Location Left Arm Pain Scale: 0-10 Numeric Is Patient Pain Free? Yes WC - Visit Discharge Discharge Condition Stable Ambulatory Status Ambulatory Transportation Private Auto Medication Reconcilliation completed & No provided to patient/care provider Clinical Summary of Care Provided Yes Wound debrided: hallux, plantar medial forefoot, toes individually 2,3,4,5 Laterality: Left Wound Grade/Stage: grade 1 Type of Debridement: Excisional debridement Anesthesia Used: 5% Lidocaine Gel Depth: in the subcutaneous layer Percentage of wound debrided: 100 Instrument Used: #15 blade Tissue Removed: fibrous, devitalized subcutaneous, biofilm, slough Severity: Fat Layer Exposed Amount of bleeding with debridement: Mild Bleeding Controlled with: Pressure Patient tolerated procedure well - Additional Wound Wound debrided: hallux Laterality: Left Wound Grade/Stage: grade 1 Type of Debridement: Excisional debridement Anesthesia Used: 5% Lidocaine Gel Depth: in the subcutaneous layer Percentage of wound debrided: 100 Instrument Used: #15 blade Tissue Removed: fibrous, devitalized subcutaneous, biofilm, slough Severity: Fat Layer Exposed Amount of bleeding with debridement: Mild Bleeding Controlled with: Pressure Patient tolerated procedure: Patient tolerated procedure well Assessment/Plan Active Problems (Last Reviewed 01/01/19 @ 09:04 by Samuel MURPHY, JEFFREY) Ulcer of right foot with fat layer exposed (Chronic) Ulcer of left foot with fat layer exposed (Chronic) Leg edema (Chronic) Type 2 diabetes mellitus with diabetic polyneuropathy (Chronic) Assessment: ulcer right foot with fat layer exposed, Francois grade 1 without infection. Ulcer left foot with fat layer exposed, Francois grade 1 without infection. Recurrent blister formation secondary to edema and trauma versus other inflammatory skin condition versus bulbous pemphigoid; work-up in process. Diabetes with neuropathy. Peripheral vascular disease with arterial calcifications. Venous insufficiency. Bilateral lower extremity edema. Malnutrition suspected Plan: I reviewed and discussed his case. The etiology of his wound development and comprehensive treatment plan was discussed. Debridement was performed today as noted in the clinical panel. To change dressing daily with hydrogel and Adaptic. He was reassured no signs of local infection are noted. He has no current blisters and bulla which is fairly unusual and it is noted that this is occurring with both his hands and feet. Therefore, a punch biopsy was obtained at the [facility] and this was performed through the [facility] lab. The report indicated epidermal ulceration with dermal fibrosis and impending tag in my station with reactive hyperkeratosis and superficial degeneration. This really is nonspecific from the histopathological features standpoint. A late bulla lesion cannot entirely be excluded and an intradepartmental consultation was placed. Additional results will continue to be followed and if this continues to happen a dermatology referral will be placed. He also understands it is not appropriate to force shoe gear use when he has increased edema. Previous noninvasive vascular lower extremity studies were reviewed and he has triphasic waveforms at bilateral ankles (04/02/20). To use bilateral Tubigrip's. This is for edema management. Venous studies from 12-05-2019 demonstrate bilateral greater saphenous incompetence consistent with venous insufficiency. Lab and x-ray updates will be considered at follow-up visit. He would also benefit from advanced wound healing product application, epifix if delayed healing continues. He is familiar with this from prior ulcer sites. The benefits and indications anticipated application and management were reviewed. To continue with surgical shoe use and heel weightbearing keep pressure off of his ulcer sites. I answered all his questions.
[2020-08-06 09:24] VITALS: BP 137/74; PULSE 98; RESP 16; TEMP 36.4; BMI 37.4
--- NOTE | 2020-08-06 11:18 | PCM.WC.PN ---
(1) Ulcer of right foot with fat layer exposed Status: Chronic Code(s): L97.512 - Non-pressure chronic ulcer of other part of right foot with fat layer exposed (2) Ulcer of left foot with fat layer exposed Status: Chronic Code(s): L97.522 - Non-pressure chronic ulcer of other part of left foot with fat layer exposed (3) Type 2 diabetes mellitus with diabetic polyneuropathy Status: Chronic Code(s): E11.42 - Type 2 diabetes mellitus with diabetic polyneuropathy (4) Leg edema Status: Chronic Code(s): R60.0 - Localized edema Type of Wound Date of Service: 08/06/20 Chief Complaint: left and right foot ulcers History of Wound: This 55-year-old male presents to the wound healing center for management of bilateral forefoot ulcers after developing acute onset of very large blisters. The onset of his injury was 07-11-20. He also reports intermittent blisters to his hands and fingers. He had a biopsy performed at the foot [facility] ankle center approximately 2-1/2 weeks ago. He thinks the onset occurred after he tried to wear shoes that were too small and when he had a swelling exacerbation. He denies redness or odor. He denies fever, chill, nausea, vomiting. He is recently wearing offloading surgical shoes. He change his dressing with hydrogel. He has a history of delayed ulcer healing. He wears surgical offloading shoes. Progress of Wound: Stable - Physical Exam Vital Signs Temp Pulse Resp BP 97.5 F L 98 16 137/74 H 08/06/20 09:24 08/06/20 09:24 08/06/20 09:24 08/06/20 09:24 General: Alert, Oriented x3, Cooperative, No apparent distress HEENT: Atraumatic Extremities: No cyanosis, Capillary Refill Less than 3 Seconds, No Calf Tenderness, Diminished Peripheral Pulses, Edema Skin: Ulcer/ Wound - No purulence, erythema, streaking, odor, infection bilateral lower extremities., - - Skin is atrophic and hairless. No interdigital maceration necrosis or deep tissue exposure bilateral Wound Measurements and Assessment WC - Nurse 1 - General Ulcer Measurement Start: 07/30/20 09:17 Freq: Status: Active Protocol: Activity Type Activity Date Activity User E-Sign Co-Sign Detail Recorded Client Recorded Date Recorded By Document 08/06/20 09:24 [facility] [id number] 08/06/20 09:35 [facility] 08/06/20 09:24 Wound Center Nurse 1 [Ulcer Assessment] #13 L 5th Toe Cluster -Combined with other wound No -Current Size (cm) - Length 2.9 -Current Size (cm) - Width 2 -Current Size (cm) - Depth 0.1 -Total Square Cm 5.8 -Photo Taken No -Epithelialization None Present -Tunneling No -Undermining/Tunneling No -Circular Undermining No -Exudate Amt Small -Exudate Type Serous -Wound Margin Distinct, Outline Attached -Granulation Amt Small (1-33%) -Granulation Quality Red -Slough/Fibrin Yes -Necrosis Amt Large (67-100%) -Necrotic Tissue Type Adherent Slough -Texture (Susana-wound Skin Appearance) Callus,Scarring -Moisture (Susana-wound Skin Appearance Assessed,Dry/ ) Scaly -Color (Susana-wound Skin Appearance) Assessed -Temperature (Susana-wound Skin No Abnormality Appearance) (Pt Warm) -Tenderness on Palpation (Susana-wound No Skin Appearance) -Ulcer Cleansing Rinsed/ Irrigated with Saline -Foul Odor after Cleansing No -Anesthetic Used 4% Lidocaine Solution #12 L 4th Toe -Combined with other wound No -Current Size (cm) - Length 1.5 -Current Size (cm) - Width 1.2 -Current Size (cm) - Depth 0.1 -Total Square Cm 1.80 -Photo Taken No -Epithelialization None Present -Tunneling No -Undermining/Tunneling No -Circular Undermining No -Exudate Amt None Present -Wound Margin Distinct, Outline Attached -Granulation Amt Small (1-33%) -Granulation Quality Red -Slough/Fibrin Yes -Necrosis Amt Large (67-100%) -Necrotic Tissue Type Adherent Slough -Texture (Susana-wound Skin Appearance) Assessed,Callus ,Scarring -Moisture (Susana-wound Skin Appearance Assessed,Dry/ ) Scaly -Color (Susana-wound Skin Appearance) Assessed -Temperature (Susana-wound Skin No Abnormality Appearance) (Pt Warm) -Tenderness on Palpation (Susana-wound No Skin Appearance) -Ulcer Cleansing Rinsed/ Irrigated with Saline -Foul Odor after Cleansing No -Anesthetic Used 4% Lidocaine Solution #11 L 3rd toe -Combined with other wound No -Current Size (cm) - Length 0.1 -Current Size (cm) - Width 0.1 -Current Size (cm) - Depth 0.1 -Total Square Cm 0.01 -Photo Taken No -Tunneling No -Undermining/Tunneling No -Circular Undermining No -Exudate Amt None Present -Necrosis Amt Large (67-100%) -Necrotic Tissue Type Adherent Slough -Texture (Susana-wound Skin Appearance) Assessed,Callus ,Scarring -Moisture (Susana-wound Skin Appearance Assessed,Dry/ ) Scaly -Color (Susana-wound Skin Appearance) Assessed -Temperature (Susana-wound Skin No Abnormality Appearance) (Pt Warm) -Tenderness on Palpation (Susana-wound No Skin Appearance) -Ulcer Cleansing Rinsed/ Irrigated with Saline -Foul Odor after Cleansing No -Anesthetic Used 4% Lidocaine Solution #10 L 2nd Toe -Combined with other wound No -Current Size (cm) - Length 1.7 -Current Size (cm) - Width 2.2 -Current Size (cm) - Depth 0.1 -Total Square Cm 3.74 -Photo Taken No -Epithelialization Small 1-33% -Tunneling No -Undermining/Tunneling No -Circular Undermining No -Exudate Amt Small -Exudate Type Serous -Wound Margin Distinct, Outline Attached -Granulation Amt Small (1-33%) -Granulation Quality Red -Slough/Fibrin Yes -Necrosis Amt Large (67-100%) -Necrotic Tissue Type Adherent Slough -Texture (Susana-wound Skin Appearance) Assessed,Callus ,Scarring -Moisture (Susana-wound Skin Appearance Assessed,Dry/ ) Scaly -Color (Susana-wound Skin Appearance) Assessed -Temperature (Susana-wound Skin No Abnormality Appearance) (Pt Warm) -Tenderness on Palpation (Susana-wound No Skin Appearance) -Ulcer Cleansing Rinsed/ Irrigated with Saline -Foul Odor after Cleansing No -Anesthetic Used 4% Lidocaine Solution #9 left Grt Toe Plantar Cluster -Combined with other wound No -Current Size (cm) - Length 10.5 -Current Size (cm) - Width 3.2 -Current Size (cm) - Depth 0.2 -Total Square Cm 33.60 -Photo Taken No -Epithelialization Small 1-33% -Tunneling No -Undermining/Tunneling No -Circular Undermining No -Exudate Amt Medium -Exudate Type Serous -Wound Margin Distinct, Outline Attached -Granulation Amt Large (67-100%) -Granulation Quality [place] -Slough/Fibrin Yes -Necrosis Amt Small (1-33%) -Necrotic Tissue Type Adherent Slough -Texture (Susana-wound Skin Appearance) Assessed,Callus ,Scarring -Moisture (Susana-wound Skin Appearance Assessed,Dry/ ) Scaly -Color (Susana-wound Skin Appearance) Assessed -Temperature (Susana-wound Skin No Abnormality Appearance) (Pt Warm) -Tenderness on Palpation (Susana-wound No Skin Appearance) -Ulcer Cleansing Rinsed/ Irrigated with Saline -Foul Odor after Cleansing No -Anesthetic Used 4% Lidocaine Solution #8 R Grt Toe Cluster -Combined with other wound No -Current Size (cm) - Length 0.8 -Current Size (cm) - Width 0.7 -Current Size (cm) - Depth 0.1 -Total Square Cm 0.56 -Photo Taken No -Epithelialization Small 1-33% -Tunneling No -Undermining/Tunneling No -Circular Undermining No -Exudate Amt Small -Exudate Type Serous -Wound Margin Distinct, Outline Attached -Granulation Amt Small (1-33%) -Granulation Quality [place] -Slough/Fibrin Yes -Necrosis Amt Large (67-100%) -Necrotic Tissue Type Adherent Slough -Texture (Susana-wound Skin Appearance) Assessed,Callus ,Scarring -Moisture (Susana-wound Skin Appearance Assessed,Dry/ ) Scaly -Color (Susana-wound Skin Appearance) Assessed -Temperature (Susana-wound Skin No Abnormality Appearance) (Pt Warm) -Tenderness on Palpation (Susana-wound No Skin Appearance) -Ulcer Cleansing Rinsed/ Irrigated with Saline -Foul Odor after Cleansing No -Anesthetic Used 4% Lidocaine Solution LC - Nurse 2 - General Ulcer CM Notes Start: 07/30/20 09:17 Freq: Status: Active Protocol: Activity Type Activity Date Activity User E-Sign Co-Sign Detail Recorded Client Recorded Date Recorded By Document 08/06/20 09:44 KASEY [id number] 08/06/20 09:53 KASEY 08/06/20 09:44 Wound Center Nurse 2 [Procedure/Treatment] #13 L 5th Toe Cluster -Time 09:46 -Correct Patient Yes -Correct Side, Site, Position Yes -Correct Procedure Yes -Procedure Performed Yes -Type of Procedure Debridement -Clinical Debridement Subcutaneous -Tissue Removed Subcutaneous -Post Debridement (cm) - Length 3 -Post Debridement (cm) - Width 2 -Post Debridement (cm) - Depth 0.1 -Total Square (Post) (cm) 6 -Area of Debridement (cm) - Length 3 -Area of Debridement (cm) - Width 2 -Total Square (Area) (cm) 6 -Tunneling No -Undermining/Tunneling No -Circular Undermining No -Wound/Ulcer Outcome Not Healed -Ulcer Cleansing Rinsed/ Irrigated with Saline -Foul Odor after Cleansing No -Bioengineered Tissue No -Bleeding Controlled with Pressure -Offloading Yes -Type of Offloading Surgical Shoe -Treatment Response Procedure Tolerated Well -Debridement - Subq, 1st 20sq cm Yes -Debridement, SubQ, ea addt'l 20sq cm 2 or part thereof #12 L 4th Toe -Time 09:47 -Correct Patient Yes -Correct Side, Site, Position Yes -Correct Procedure Yes -Procedure Performed Yes -Type of Procedure Debridement -Clinical Debridement Subcutaneous -Tissue Removed Subcutaneous -Post Debridement (cm) - Length 1.5 -Post Debridement (cm) - Width 1.3 -Post Debridement (cm) - Depth 0.1 -Total Square (Post) (cm) 1.95 -Area of Debridement (cm) - Length 1.5 -Area of Debridement (cm) - Width 1.3 -Total Square (Area) (cm) 1.95 -Tunneling No -Undermining/Tunneling No -Circular Undermining No -Wound/Ulcer Outcome Not Healed -Ulcer Cleansing Rinsed/ Irrigated with Saline -Foul Odor after Cleansing No -Bioengineered Tissue No -Bleeding Controlled with Pressure -Offloading Yes -Type of Offloading Surgical Shoe -Treatment Response Procedure Tolerated Well -Debridement - Subq, 1st 20sq cm No #11 L 3rd toe -Time 09:47 -Correct Patient No -Correct Side, Site, Position No -Correct Procedure No -Procedure Performed No -Post Debridement (cm) - Length 0 -Post Debridement (cm) - Width 0 -Post Debridement (cm) - Depth 0 -Total Square (Post) (cm) 0 -Area of Debridement (cm) - Length 0 -Area of Debridement (cm) - Width 0 -Total Square (Area) (cm) 0 -Tunneling No -Undermining/Tunneling No -Circular Undermining No -Wound/Ulcer Outcome Healed- Epithelialized -Debridement - Subq, 1st 20sq cm No #10 L 2nd Toe -Time 09:47 -Correct Patient Yes -Correct Side, Site, Position Yes -Correct Procedure Yes -Procedure Performed Yes -Type of Procedure Debridement -Clinical Debridement Subcutaneous -Tissue Removed Subcutaneous -Post Debridement (cm) - Length 1.8 -Post Debridement (cm) - Width 2.2 -Post Debridement (cm) - Depth 0.1 -Total Square (Post) (cm) 3.96 -Area of Debridement (cm) - Length 1.8 -Area of Debridement (cm) - Width 2.2 -Total Square (Area) (cm) 3.96 -Tunneling No -Undermining/Tunneling No -Circular Undermining No -Wound/Ulcer Outcome Not Healed -Ulcer Cleansing Rinsed/ Irrigated with Saline -Foul Odor after Cleansing No -Bioengineered Tissue No -Bleeding Controlled with Pressure -Offloading Yes -Type of Offloading Surgical Shoe -Treatment Response Procedure Tolerated Well -Debridement - Subq, 1st 20sq cm No #9 left Grt Toe Plantar Cluster -Time 09:50 -Correct Patient Yes -Correct Side, Site, Position Yes -Correct Procedure Yes -Procedure Performed Yes -Type of Procedure Debridement -Clinical Debridement Subcutaneous -Tissue Removed Subcutaneous -Post Debridement (cm) - Length 10.5 -Post Debridement (cm) - Width 3.3 -Post Debridement (cm) - Depth 0.2 -Total Square (Post) (cm) 34.65 -Area of Debridement (cm) - Length 10.5 -Area of Debridement (cm) - Width 3.3 -Total Square (Area) (cm) 34.65 -Tunneling No -Undermining/Tunneling No -Circular Undermining No -Wound/Ulcer Outcome Not Healed -Ulcer Cleansing Rinsed/ Irrigated with Saline -Foul Odor after Cleansing No -Bioengineered Tissue No -Bleeding Controlled with Pressure -Offloading Yes -Type of Offloading Surgical Shoe -Treatment Response Procedure Tolerated Well -Debridement - Subq, 1st 20sq cm No #8 R Grt Toe Cluster -Time 09:51 -Correct Patient Yes -Correct Side, Site, Position Yes -Correct Procedure Yes -Procedure Performed Yes -Type of Procedure Debridement -Clinical Debridement Subcutaneous -Tissue Removed Subcutaneous -Post Debridement (cm) - Length 0.8 -Post Debridement (cm) - Width 0.8 -Post Debridement (cm) - Depth 0.1 -Total Square (Post) (cm) 0.64 -Area of Debridement (cm) - Length 0.8 -Area of Debridement (cm) - Width 0.8 -Total Square (Area) (cm) 0.64 -Tunneling No -Undermining/Tunneling No -Circular Undermining No -Wound/Ulcer Outcome Not Healed -Ulcer Cleansing Rinsed/ Irrigated with Saline -Foul Odor after Cleansing No -Bioengineered Tissue No -Bleeding Controlled with Pressure -Offloading Yes -Type of Offloading Surgical Shoe -Treatment Response Procedure Tolerated Well -Debridement - Subq, 1st 20sq cm No [See Physician Procedure note for Specifics] Pain Scale: 0-10 Numeric [Pain] -Is Patient Pain Free? Yes WC - Nurse 3 - General Ulcer D/C NN Start: 07/30/20 09:17 Freq: Status: Active Protocol: Activity Type Activity Date Activity User E-Sign Co-Sign Detail Recorded Client Recorded Date Recorded By Document 08/06/20 09:58 DL [id number] 08/06/20 10:00 DL 08/06/20 09:58 Wound Care Nurse 3 [Wound Dressing] #13 L 5th Toe Cluster -Ulcer Cleansing Rinsed/ Irrigated with Saline -Foul Odor after Cleansing No -Primary Dressing Applied C Hydrogel ($), NonAdherent Contact Layer -Primary Dressing Covered/Secured Dry Gauze & with Roll Gauze, Secured with Tape #12 L 4th Toe -Ulcer Cleansing Rinsed/ Irrigated with Saline -Foul Odor after Cleansing No -Primary Dressing Applied NonAdherent Contact Layer -Other Dressing hydrogel -Primary Dressing Covered/Secured Dry Gauze & with Roll Gauze, Secured with Tape #10 L 2nd Toe -Ulcer Cleansing Rinsed/ Irrigated with Saline -Foul Odor after Cleansing No -Primary Dressing Applied NonAdherent Contact Layer -Other Dressing hydrogel -Primary Dressing Covered/Secured Dry Gauze & with Roll Gauze, Secured with Tape #9 left Grt Toe Plantar Cluster -Ulcer Cleansing Rinsed/ Irrigated with Saline -Foul Odor after Cleansing No -Primary Dressing Applied NonAdherent Contact Layer -Other Dressing hydrogel -Primary Dressing Covered/Secured Dry Gauze & with Roll Gauze, Secured with Tape #8 R Grt Toe Cluster -Ulcer Cleansing Rinsed/ Irrigated with Saline -Foul Odor after Cleansing No -Primary Dressing Applied NonAdherent Contact Layer -Other Dressing hydrogel -Primary Dressing Covered/Secured Dry Gauze & with Roll Gauze, Secured with Tape [Post Procedure Tolerated] -Treatment Response Procedure Tolerated Well Pain Scale: 0-10 Numeric [Pain] -Is Patient Pain Free? Yes WC - Visit Discharge [Visit Discharge Information] -Discharge Condition Stable -Ambulatory Status Ambulatory -Transportation Private Auto Musculoskeletal: No Tenderness to Palpation of Joints or Extremities, Muscle Wasting, - - Compartment soft Neurological: - - Lack of full epicritic sensation light touch is consistent neuropathic status Psych/Mental Status: Normal Affect, Appropriate Debridement Note Post-Debridement Measurements/Treatment - Nurse 2 - General Ulcer CM Notes Start: 07/30/20 09:17 Freq: Status: Active Protocol: Activity Type Activity Date Activity User E-Sign Co-Sign Detail Recorded Client Recorded Date Recorded By Document 07/30/20 09:46 KASEY [id number] 07/30/20 10:02 Document 08/06/20 09:44 [id number] 08/06/20 09:53 07/30/20 08/06/20 09:46 09:44 Wound Center Nurse 2 #13 L 5th Toe Cluster -Time 09:53 09:46 -Correct Patient Yes Yes -Correct Side, Site, Position Yes Yes -Correct Procedure Yes Yes -Procedure Performed Yes Yes -Type of Procedure Debridement Debridement -Clinical Debridement Subcutaneous Subcutaneous -Tissue Removed Subcutaneous Subcutaneous -Post Debridement (cm) - Length 2.8 3 -Post Debridement (cm) - Width 1.4 2 -Post Debridement (cm) - Depth 0.1 0.1 -Total Square (Post) (cm) 3.92 6 -Area of Debridement (cm) - Length 2.8 3 -Area of Debridement (cm) - Width 1.4 2 -Total Square (Area) (cm) 3.92 6 -Tunneling No No -Undermining/Tunneling No No -Circular Undermining No No -Wound/Ulcer Outcome Not Healed Not Healed -Ulcer Cleansing Rinsed/ Rinsed/ Irrigated with Irrigated with Saline Saline -Foul Odor after Cleansing No No -Bioengineered Tissue No No -Bleeding Controlled with Pressure Pressure -Offloading Yes Yes -Type of Offloading Surgical Shoe Surgical Shoe -Treatment Response Procedure Procedure Tolerated Well Tolerated Well -Debridement - Subq, 1st 20sq cm Yes Yes -Debridement, SubQ, ea addt'l 20sq cm 1 2 or part thereof #12 L 4th Toe -Time 09:53 09:47 -Correct Patient Yes Yes -Correct Side, Site, Position Yes Yes -Correct Procedure Yes Yes -Procedure Performed Yes Yes -Type of Procedure Debridement Debridement -Clinical Debridement Subcutaneous Subcutaneous -Tissue Removed Subcutaneous Subcutaneous -Post Debridement (cm) - Length 1.5 1.5 -Post Debridement (cm) - Width 1 1.3 -Post Debridement (cm) - Depth 0.1 0.1 -Total Square (Post) (cm) 1.5 1.95 -Area of Debridement (cm) - Length 1.5 1.5 -Area of Debridement (cm) - Width 1 1.3 -Total Square (Area) (cm) 1.5 1.95 -Tunneling No No -Undermining/Tunneling No No -Circular Undermining No No -Wound/Ulcer Outcome Not Healed Not Healed -Ulcer Cleansing Rinsed/ Rinsed/ Irrigated with Irrigated with Saline Saline -Foul Odor after Cleansing No No -Bioengineered Tissue No No -Bleeding Controlled with Pressure Pressure -Offloading Yes Yes -Type of Offloading Surgical Shoe Surgical Shoe -Treatment Response Procedure Procedure Tolerated Well Tolerated Well -Debridement - Subq, 1st 20sq cm No No #11 L 3rd toe -Time 09:54 09:47 -Correct Patient Yes No -Correct Side, Site, Position Yes No -Correct Procedure Yes No -Procedure Performed Yes No -Type of Procedure Debridement -Clinical Debridement Subcutaneous -Tissue Removed Subcutaneous -Post Debridement (cm) - Length 0.8 0 -Post Debridement (cm) - Width 0.4 0 -Post Debridement (cm) - Depth 0.1 0 -Total Square (Post) (cm) 0.32 0 -Area of Debridement (cm) - Length 0.8 0 -Area of Debridement (cm) - Width 0.4 0 -Total Square (Area) (cm) 0.32 0 -Tunneling No No -Undermining/Tunneling No No -Circular Undermining No No -Wound/Ulcer Outcome Not Healed Healed- Epithelialized -Ulcer Cleansing Rinsed/ Irrigated with Saline -Foul Odor after Cleansing No -Bioengineered Tissue No -Bleeding Controlled with Pressure -Offloading Yes -Type of Offloading Surgical Shoe -Treatment Response Procedure Tolerated Well -Debridement - Subq, 1st 20sq cm No No #10 L 2nd Toe -Time 09:54 09:47 -Correct Patient Yes Yes -Correct Side, Site, Position Yes Yes -Correct Procedure Yes Yes -Procedure Performed Yes Yes -Type of Procedure Debridement Debridement -Clinical Debridement Subcutaneous Subcutaneous -Tissue Removed Subcutaneous Subcutaneous -Post Debridement (cm) - Length 1.9 1.8 -Post Debridement (cm) - Width 1.9 2.2 -Post Debridement (cm) - Depth 0.1 0.1 -Total Square (Post) (cm) 3.61 3.96 -Area of Debridement (cm) - Length 1.9 1.8 -Area of Debridement (cm) - Width 1.9 2.2 -Total Square (Area) (cm) 3.61 3.96 -Tunneling No No -Undermining/Tunneling No No -Circular Undermining No No -Wound/Ulcer Outcome Not Healed Not Healed -Ulcer Cleansing Rinsed/ Rinsed/ Irrigated with Irrigated with Saline Saline -Foul Odor after Cleansing No No -Bioengineered Tissue No No -Bleeding Controlled with Pressure Pressure -Offloading Yes Yes -Type of Offloading Surgical Shoe Surgical Shoe -Treatment Response Procedure Procedure Tolerated Well Tolerated Well -Debridement - Subq, 1st 20sq cm No No #9 left Grt Toe Plantar Cluster -Time 09:55 09:50 -Correct Patient Yes Yes -Correct Side, Site, Position Yes Yes -Correct Procedure Yes Yes -Procedure Performed Yes Yes -Type of Procedure Debridement Debridement -Clinical Debridement Subcutaneous Subcutaneous -Tissue Removed Subcutaneous Subcutaneous -Post Debridement (cm) - Length 10.5 10.5 -Post Debridement (cm) - Width 3 3.3 -Post Debridement (cm) - Depth 0.1 0.2 -Total Square (Post) (cm) 31.5 34.65 -Area of Debridement (cm) - Length 10.5 10.5 -Area of Debridement (cm) - Width 3 3.3 -Total Square (Area) (cm) 31.5 34.65 -Tunneling No No -Undermining/Tunneling No No -Circular Undermining No No -Wound/Ulcer Outcome Not Healed Not Healed -Ulcer Cleansing Rinsed/ Rinsed/ Irrigated with Irrigated with Saline Saline -Foul Odor after Cleansing No No -Bioengineered Tissue No No -Bleeding Controlled with Pressure Pressure -Offloading Yes Yes -Type of Offloading Surgical Shoe Surgical Shoe -Treatment Response Procedure Procedure Tolerated Well Tolerated Well -Debridement - Subq, 1st 20sq cm No No #8 R Grt Toe Cluster -Time 09:51 09:51 -Correct Patient Yes Yes -Correct Side, Site, Position Yes Yes -Correct Procedure Yes Yes -Procedure Performed Yes Yes -Type of Procedure Debridement Debridement -Clinical Debridement Subcutaneous Subcutaneous -Tissue Removed Subcutaneous Subcutaneous -Post Debridement (cm) - Length 3 0.8 -Post Debridement (cm) - Width 1.5 0.8 -Post Debridement (cm) - Depth 0.1 0.1 -Total Square (Post) (cm) 4.5 0.64 -Area of Debridement (cm) - Length 3 0.8 -Area of Debridement (cm) - Width 1.5 0.8 -Total Square (Area) (cm) 4.5 0.64 -Tunneling No No -Undermining/Tunneling No No -Circular Undermining No No -Wound/Ulcer Outcome Not Healed Not Healed -Ulcer Cleansing Rinsed/ Rinsed/ Irrigated with Irrigated with Saline Saline -Foul Odor after Cleansing No No -Bioengineered Tissue No No -Bleeding Controlled with Pressure Pressure -Offloading Yes Yes -Type of Offloading Surgical Shoe Surgical Shoe -Treatment Response Procedure Procedure Tolerated Well Tolerated Well -Debridement - Subq, 1st 20sq cm No No Pain Scale: 0-10 Numeric Is Patient Pain Free? Yes Yes - Nurse 3 - General Ulcer D/C NN Start: 07/30/20 09:17 Freq: Status: Active Protocol: Activity Type Activity Date Activity User E-Sign Co-Sign Detail Recorded Client Recorded Date Recorded By Document 07/30/20 10:24 RB [id number] 07/30/20 10:26 RB Document 08/06/20 09:58 DL [id number] 08/06/20 10:00 DL 07/30/20 08/06/20 10:24 09:58 Wound Care Nurse 3 #13 L 5th Toe Cluster -Ulcer Cleansing Rinsed/ Rinsed/ Irrigated with Irrigated with Saline Saline -Foul Odor after Cleansing No -Primary Dressing Applied C Hydrogel ($), C Hydrogel ($), NonAdherent NonAdherent Contact Layer Contact Layer -Primary Dressing Covered/Secured with Dry Gauze,Dry Dry Gauze & Gauze & Roll Roll Gauze, Gauze,Secured Secured with with Tape Tape #12 L 4th Toe -Ulcer Cleansing Rinsed/ Rinsed/ Irrigated with Irrigated with Saline Saline -Foul Odor after Cleansing No -Primary Dressing Applied NonAdherent NonAdherent Contact Layer Contact Layer -Other Dressing hydrogel hydrogel -Primary Dressing Covered/Secured with Dry Gauze & Dry Gauze & Roll Gauze, Roll Gauze, Secured with Secured with Tape Tape #11 L 3rd toe -Ulcer Cleansing Rinsed/ Irrigated with Saline -Primary Dressing Applied NonAdherent Contact Layer -Other Dressing hydrogel -Primary Dressing Covered/Secured with Dry Gauze & Roll Gauze, Secured with Tape #10 L 2nd Toe -Ulcer Cleansing Rinsed/ Rinsed/ Irrigated with Irrigated with Saline Saline -Foul Odor after Cleansing No -Primary Dressing Applied NonAdherent NonAdherent Contact Layer Contact Layer -Other Dressing hydrogel hydrogel -Primary Dressing Covered/Secured with Dry Gauze & Dry Gauze & Roll Gauze, Roll Gauze, Secured with Secured with Tape Tape #9 left Grt Toe Plantar Cluster -Ulcer Cleansing Rinsed/ Rinsed/ Irrigated with Irrigated with Saline Saline -Foul Odor after Cleansing No -Primary Dressing Applied NonAdherent NonAdherent Contact Layer Contact Layer -Other Dressing hydrogel hydrogel -Primary Dressing Covered/Secured with Dry Gauze & Dry Gauze & Roll Gauze, Roll Gauze, Secured with Secured with Tape Tape #8 R Grt Toe Cluster -Ulcer Cleansing Rinsed/ Rinsed/ Irrigated with Irrigated with Saline Saline -Foul Odor after Cleansing No -Primary Dressing Applied NonAdherent NonAdherent Contact Layer Contact Layer -Other Dressing hydrogel hydrogel -Primary Dressing Covered/Secured with Dry Gauze & Dry Gauze & Roll Gauze, Roll Gauze, Secured with Secured with Tape Tape Treatment Response Procedure Procedure Tolerated Well Tolerated Well Vital Signs Blood Pressure (90/60-120/80) 116/81 H Blood Pressure Mean (mm Hg) 92 Source Monitor Position Semi-Fowlers Blood Pressure Location Left Arm Pain Scale: 0-10 Numeric Is Patient Pain Free? Yes Yes WC - Visit Discharge Discharge Condition Stable Stable Ambulatory Status Ambulatory Ambulatory Transportation Private Auto Private Auto Medication Reconcilliation completed & No provided to patient/care provider Clinical Summary of Care Provided Yes Wound debrided: hallux, second toe Laterality: Right Wound Grade/Stage: grade 1 Type of Debridement: Excisional debridement Anesthesia Used: 5% Lidocaine Gel Depth: in the subcutaneous layer Percentage of wound debrided: 100 Instrument Used: #15 blade Tissue Removed: fibrous, devitalized subcutaneous, biofilm, slough Severity: Fat Layer Exposed Amount of bleeding with debridement: Mild Bleeding Controlled with: Pressure Patient tolerated procedure well - Additional Wound Wound debrided: hallux/plantar foot, digit 2,4 and 5 Laterality: Left Wound Grade/Stage: grade 1 Type of Debridement: Excisional debridement Anesthesia Used: 5% Lidocaine Gel Depth: in the subcutaneous layer Percentage of wound debrided: 100 Instrument Used: #15 blade Tissue Removed: fibrous, devitalized subcutaneous, biofilm, slough Severity: Fat Layer Exposed Amount of bleeding with debridement: Mild Bleeding Controlled with: Pressure Patient tolerated procedure: Patient tolerated procedure well Assessment/Plan Active Problems (Last Reviewed 01/01/19 @ 09:04 by JEFFREY Mcneill) Ulcer of right foot with fat layer exposed (Chronic) Ulcer of left foot with fat layer exposed (Chronic) Leg edema (Chronic) Type 2 diabetes mellitus with diabetic polyneuropathy (Chronic) Assessment: Ulcer right foot with fat layer exposed, Francois grade 1 without infection. Ulcer left foot with fat layer exposed, Francois grade 1 without infection. Recurrent blister formation secondary to edema and trauma versus other inflammatory skin condition versus bulbous pemphigoid; work-up in process. Diabetes with neuropathy. Peripheral vascular disease with arterial calcifications. Venous insufficiency. Bilateral lower extremity edema. Malnutrition suspected Plan: I reviewed and discussed his case. The etiology of his wound development and comprehensive treatment plan was discussed. Debridement was performed today as noted in the clinical panel. To change dressing daily with hydrogel and Adaptic. He was reassured no signs of local infection are noted. He has no current blisters and bulla which is fairly unusual and it is noted that this is occurring with both his hands and feet. Therefore, a punch biopsy was obtained at the foot and ankle center and this was performed through the [facility] lab. The report indicated epidermal ulceration with dermal fibrosis and impending tag in my station with reactive hyperkeratosis and superficial degeneration. This really is nonspecific from the histopathological features standpoint. A late bulla lesion cannot entirely be excluded and an intradepartmental consultation was placed. Additional results will continue to be followed and if this continues to happen a dermatology referral will be placed. He also understands it is not appropriate to force shoe gear use when he has increased edema. Previous noninvasive vascular lower extremity studies were reviewed and he has triphasic waveforms at bilateral ankles (04/02/20). To use bilateral Tubigrip's. This is for edema management. Venous studies from 12-05-2019 demonstrate bilateral greater saphenous incompetence consistent with venous insufficiency. He would also benefit from advanced wound healing product application, epifix. The indications, benefits, anticipated application and management were reviewed. This is medically necessary for limb salvage. The benefits and indications anticipated application and management were reviewed. To continue with surgical shoe use and heel weightbearing keep pressure off of his ulcer sites. I answered all his questions.
== END 2020-08-06 23:59 ==
LOC: WC 09:30
PROVIDERS: PCP Student in an Organized Health Care Education/Training Program; Visit Provider Podiatrist
DX: E11.621 Type 2 diabetes mellitus with foot ulcer (principal); E11.42 Type 2 diabetes mellitus with diabetic polyneuropathy; L12.0 Bullous pemphigoid; L97.512 Non-pressure chronic ulcer of other part of right foot with fat layer exposed; L97.522 Non-pressure chronic ulcer of other part of left foot with fat layer exposed; R60.0 Localized edema; E66.9 Obesity, unspecified; I10 Essential (primary) hypertension; Z79.4 Long term (current) use of insulin; Z79.82 Long term (current) use of aspirin; Z79.899 Other long term (current) drug therapy; E11.51 Type 2 diabetes mellitus with diabetic peripheral angiopathy without gangrene
CPT/HCPCS: 11042; 11045; 99213; G0463

== ENCOUNTER 2020-09-03 10:15 | Outpatient (RCR) | payer OTHER, SELFPAY ==
[2020-08-07 00:51] VITALS: BP 137/74; PULSE 98; RESP 16; TEMP 36.4
[2020-08-13 09:40] VITALS: BP 126/71; PULSE 100; RESP 16; TEMP 36.6; BMI 37.4
--- NOTE | 2020-08-13 11:27 | PN.PCM_ITS ---
(1) Ulcer of right foot with fat layer exposed Status: Chronic Code(s): L97.512 - Non-pressure chronic ulcer of other part of right foot with fat layer exposed (2) Ulcer of left foot with fat layer exposed Status: Chronic Code(s): L97.522 - Non-pressure chronic ulcer of other part of left foot with fat layer exposed (3) Type 2 diabetes mellitus with diabetic polyneuropathy Status: Chronic Code(s): E11.42 - Type 2 diabetes mellitus with diabetic polyneuropathy (4) Venous insufficiency Status: Chronic Code(s): I87.2 - Venous insufficiency (chronic) (peripheral) (5) Leg edema Status: Chronic Code(s): R60.0 - Localized edema Type of Wound Date of Service: 08/13/20 Chief Complaint: left and right foot ulcers History of Wound: This 55-year-old male presents to the wound healing center for management of bilateral forefoot ulcers after developing acute onset of very large blisters. The onset of his injury was 07-11-20. He thinks the onset occurred after he tried to wear shoes that were too small and when he had a swelling exacerbation. He denies redness or odor. 30 completed ulcer biopsy. He denies fever, chill, nausea, vomiting. He is recently wearing offloading surgical shoes. He change his dressing with hydrogel. He has a history of delayed ulcer healing. He wears surgical offloading shoes. He was approved for advanced wound healing product application epifix (1 application only), and would like to consider the [id number] cost prior to proceeding. Progress of Wound: Improving - Physical Exam Vital Signs Temp Pulse Resp BP 97.8 F 100 16 126/71 H 08/13/20 09:40 08/13/20 09:40 08/13/20 09:40 08/13/20 09:40 General: Alert, Oriented x3, Cooperative, No apparent distress HEENT: Atraumatic Extremities: No cyanosis, Capillary Refill Less than 3 Seconds, No Calf Tender ness, Edema - Decreased Skin: Ulcer/ Wound - No purulence, erythema, streaking, odor, infection. No interdigital maceration or necrosis. Adjacent skin is hairless and atrophic Wound Measurements and Assessment WC - Nurse 1 - General Ulcer Measurement Start: 08/13/20 09:40 Freq: Status: Active Protocol: Activity Type Activity Date Activity User E-Sign Co-Sign Detail Recorded Client Recorded Date Recorded By Document 08/13/20 09:40 MS [id number] 08/13/20 09:48 MS 08/13/20 09:40 Wound Center Nurse 1 [Ulcer Assessment] #13 L 5th Toe Cluster -Combined with other wound No -Current Size (cm) - Length 0.1 -Current Size (cm) - Width 0.1 -Current Size (cm) - Depth 0.1 -Total Square Cm 0.01 -Exudate Amt None Present -Wound Margin Distinct, Outline Attached -Granulation Amt None Present (0 %) -Slough/Fibrin No -Texture (Susana-wound Skin Appearance) No Abnormality -Moisture (Susana-wound Skin Appearance Dry/Scaly ) -Color (Susana-wound Skin Appearance) No Abnormality -Temperature (Susana-wound Skin No Abnormality Appearance) (Pt Warm) -Anesthetic Used 4% Lidocaine Solution #12 L 4th Toe -Current Size (cm) - Length 0.1 -Current Size (cm) - Width 0.1 -Current Size (cm) - Depth 0.1 -Total Square Cm 0.01 -Exudate Amt None Present -Wound Margin Distinct, Outline Attached -Granulation Amt None Present (0 %) -Slough/Fibrin No -Necrosis Amt None Present (0 %) -Texture (Susana-wound Skin Appearance) No Abnormality -Moisture (Susana-wound Skin Appearance Dry/Scaly ) -Color (Susana-wound Skin Appearance) No Abnormality -Temperature (Susana-wound Skin No Abnormality Appearance) (Pt Warm) -Anesthetic Used 4% Lidocaine Solution #10 L 2nd Toe -Current Size (cm) - Length 0.1 -Current Size (cm) - Width 0.1 -Current Size (cm) - Depth 0.1 -Total Square Cm 0.01 -Exudate Amt None Present -Granulation Amt None Present (0 %) -Slough/Fibrin No -Necrosis Amt None Present (0 %) -Texture (Susana-wound Skin Appearance) No Abnormality -Moisture (Susana-wound Skin Appearance Dry/Scaly ) -Color (Susana-wound Skin Appearance) No Abnormality -Temperature (Susana-wound Skin No Abnormality Appearance) (Pt Warm) -Foul Odor after Cleansing No -Anesthetic Used 4% Lidocaine Solution #9 left Grt Toe Plantar Cluster -Current Size (cm) - Length 8 -Current Size (cm) - Width 2.5 -Current Size (cm) - Depth 0.2 -Total Square Cm 20.0 -Exudate Amt Small -Exudate Type Serosanguineous -Wound Margin Distinct, Outline Attached -Granulation Amt Medium (34-66%) -Slough/Fibrin Yes -Texture (Susana-wound Skin Appearance) No Abnormality -Moisture (Susana-wound Skin Appearance Dry/Scaly ) -Color (Susana-wound Skin Appearance) No Abnormality -Temperature (Susana-wound Skin No Abnormality Appearance) (Pt Warm) -Foul Odor after Cleansing No -Anesthetic Used 4% Lidocaine Solution #8 R Grt Toe Cluster -Current Size (cm) - Length 0.1 -Current Size (cm) - Width 0.1 -Current Size (cm) - Depth 0.1 -Total Square Cm 0.01 -Exudate Amt None Present -Granulation Amt None Present (0 %) -Necrosis Amt None Present (0 %) -Texture (Susana-wound Skin Appearance) No Abnormality -Moisture (Susana-wound Skin Appearance Dry/Scaly ) -Color (Susana-wound Skin Appearance) No Abnormality -Tenderness on Palpation (Susana-wound No Skin Appearance) -Foul Odor after Cleansing No -Anesthetic Used 4% Lidocaine Solution WC - Nurse 2 - General Ulcer CM Notes Start: 08/13/20 09:40 Freq: Status: Active Protocol: Activity Type Activity Date Activity User E-Sign Co-Sign Detail Recorded Client Recorded Date Recorded By Document 08/13/20 10:12 KASEY [id number] 08/13/20 10:26 KASEY 08/13/20 10:12 Wound Center Nurse 2 [Procedure/Treatment] #13 L 5th Toe Cluster -Correct Patient No -Correct Side, Site, Position No -Correct Procedure No -Procedure Performed No -Post Debridement (cm) - Length 0 -Post Debridement (cm) - Width 0 -Post Debridement (cm) - Depth 0 -Total Square (Post) (cm) 0 -Area of Debridement (cm) - Length 0 -Area of Debridement (cm) - Width 0 -Total Square (Area) (cm) 0 -Wound/Ulcer Outcome Healed- Epithelialized #12 L 4th Toe -Correct Patient No -Correct Side, Site, Position No -Correct Procedure No -Procedure Performed No -Post Debridement (cm) - Length 0 -Post Debridement (cm) - Width 0 -Post Debridement (cm) - Depth 0 -Total Square (Post) (cm) 0 -Area of Debridement (cm) - Length 0 -Area of Debridement (cm) - Width 0 -Total Square (Area) (cm) 0 -Wound/Ulcer Outcome Healed- Epithelialized #10 L 2nd Toe -Time 10:18 -Correct Patient Yes -Correct Side, Site, Position Yes -Correct Procedure Yes -Procedure Performed Yes -Type of Procedure Debridement -Clinical Debridement Subcutaneous -Tissue Removed Subcutaneous -Post Debridement (cm) - Length 0.3 -Post Debridement (cm) - Width 1.0 -Post Debridement (cm) - Depth 0.1 -Total Square (Post) (cm) 0.30 -Area of Debridement (cm) - Length 0.3 -Area of Debridement (cm) - Width 1 -Total Square (Area) (cm) 0.3 -Tunneling No -Undermining/Tunneling No -Circular Undermining No -Wound/Ulcer Outcome Not Healed -Ulcer Cleansing Rinsed/ Irrigated with Saline -Foul Odor after Cleansing No -Bioengineered Tissue No -Bleeding Controlled with Pressure -Offloading Yes -Type of Offloading Surgical Shoe -Treatment Response Procedure Tolerated Well -Debridement - Subq, 1st 20sq cm Yes -Debridement, SubQ, ea addt'l 20sq cm 1 or part thereof #9 left Grt Toe Plantar Cluster -Time 10:19 -Correct Patient Yes -Correct Side, Site, Position Yes -Correct Procedure Yes -Procedure Performed Yes -Type of Procedure Debridement -Clinical Debridement Subcutaneous -Tissue Removed Subcutaneous -Post Debridement (cm) - Length 8 -Post Debridement (cm) - Width 2.6 -Post Debridement (cm) - Depth 0.1 -Total Square (Post) (cm) 20.8 -Area of Debridement (cm) - Length 8 -Area of Debridement (cm) - Width 2.6 -Total Square (Area) (cm) 20.8 -Tunneling No -Undermining/Tunneling No -Circular Undermining No -Wound/Ulcer Outcome Not Healed -Ulcer Cleansing Rinsed/ Irrigated with Saline -Foul Odor after Cleansing No -Bioengineered Tissue No -Bleeding Controlled with Pressure -Offloading Yes -Type of Offloading Surgical Shoe -Treatment Response Procedure Tolerated Well -Debridement - Subq, 1st 20sq cm No #8 R Grt Toe Cluster -Time 10:23 -Correct Patient Yes -Correct Side, Site, Position Yes -Correct Procedure Yes -Procedure Performed Yes -Type of Procedure Debridement -Clinical Debridement Subcutaneous -Tissue Removed Subcutaneous -Post Debridement (cm) - Length 0.7 -Post Debridement (cm) - Width 0.2 -Post Debridement (cm) - Depth 0.2 -Total Square (Post) (cm) 0.14 -Area of Debridement (cm) - Length 0.7 -Area of Debridement (cm) - Width 0.2 -Total Square (Area) (cm) 0.14 -Tunneling No -Undermining/Tunneling No -Circular Undermining No -Wound/Ulcer Outcome Not Healed -Ulcer Cleansing Rinsed/ Irrigated with Saline -Foul Odor after Cleansing No -Bioengineered Tissue No -Bleeding Controlled with Pressure -Offloading Yes -Type of Offloading Surgical Shoe -Treatment Response Procedure Tolerated Well -Debridement - Subq, 1st 20sq cm No [See Physician Procedure note for Specifics] Pain Scale: 0-10 Numeric [Pain] -Is Patient Pain Free? Yes - Nurse 3 - General Ulcer D/C NN Start: 08/13/20 09:40 Freq: Status: Active Protocol: Activity Type Activity Date Activity User E-Sign Co-Sign Detail Recorded Client Recorded Date Recorded By Document 08/13/20 10:43 DL [id number] 08/13/20 10:44 DL 08/13/20 10:43 Wound Care Nurse 3 [Wound Dressing] #10 L 2nd Toe -Ulcer Cleansing Rinsed/ Irrigated with Saline -Foul Odor after Cleansing No -Primary Dressing Applied C Hydrogel ($), NonAdherent Contact Layer #9 left Grt Toe Plantar Cluster -Ulcer Cleansing Rinsed/ Irrigated with Saline -Foul Odor after Cleansing No -Primary Dressing Applied NonAdherent Contact Layer -Other Dressing hydrogel -Primary Dressing Covered/Secured Dry Gauze & with Roll Gauze, Secured with Tape #8 R Grt Toe Cluster -Ulcer Cleansing Rinsed/ Irrigated with Saline -Foul Odor after Cleansing No -Primary Dressing Applied NonAdherent Contact Layer -Other Dressing hydrogel -Primary Dressing Covered/Secured Dry Gauze & with Roll Gauze, Secured with Tape [Post Procedure Tolerated] -Treatment Response Procedure Tolerated Well Pain Scale: 0-10 Numeric [Pain] -Is Patient Pain Free? Yes WC - Visit Discharge [Visit Discharge Information] -Discharge Condition Stable -Ambulatory Status Ambulatory -Transportation Private Auto Musculoskeletal: No Tenderness to Palpation of Joints or Extremities, Muscle Wasting Neurological: - - Lack of epicritic sensation light touch is consistent with neuropathic status Psych/Mental Status: Normal Affect, Appropriate Debridement Note Post-Debridement Measurements/Treatment WC - Nurse 2 - General Ulcer CM Notes Start: 08/13/20 09:40 Freq: Status: Active Protocol: Activity Type Activity Date Activity User E-Sign Co-Sign Detail Recorded Client Recorded Date Recorded By Document 08/13/20 10:12 KASEY [id number] 08/13/20 10:26 KASEY 08/13/20 10:12 Wound Center Nurse 2 #13 L 5th Toe Cluster -Correct Patient No -Correct Side, Site, Position No -Correct Procedure No -Procedure Performed No -Post Debridement (cm) - Length 0 -Post Debridement (cm) - Width 0 -Post Debridement (cm) - Depth 0 -Total Square (Post) (cm) 0 -Area of Debridement (cm) - Length 0 -Area of Debridement (cm) - Width 0 -Total Square (Area) (cm) 0 -Wound/Ulcer Outcome Healed- Epithelialized #12 L 4th Toe -Correct Patient No -Correct Side, Site, Position No -Correct Procedure No -Procedure Performed No -Post Debridement (cm) - Length 0 -Post Debridement (cm) - Width 0 -Post Debridement (cm) - Depth 0 -Total Square (Post) (cm) 0 -Area of Debridement (cm) - Length 0 -Area of Debridement (cm) - Width 0 -Total Square (Area) (cm) 0 -Wound/Ulcer Outcome Healed- Epithelialized #10 L 2nd Toe -Time 10:18 -Correct Patient Yes -Correct Side, Site, Position Yes -Correct Procedure Yes -Procedure Performed Yes -Type of Procedure Debridement -Clinical Debridement Subcutaneous -Tissue Removed Subcutaneous -Post Debridement (cm) - Length 0.3 -Post Debridement (cm) - Width 1.0 -Post Debridement (cm) - Depth 0.1 -Total Square (Post) (cm) 0.30 -Area of Debridement (cm) - Length 0.3 -Area of Debridement (cm) - Width 1 -Total Square (Area) (cm) 0.3 -Tunneling No -Undermining/Tunneling No -Circular Undermining No -Wound/Ulcer Outcome Not Healed -Ulcer Cleansing Rinsed/ Irrigated with Saline -Foul Odor after Cleansing No -Bioengineered Tissue No -Bleeding Controlled with Pressure -Offloading Yes -Type of Offloading Surgical Shoe -Treatment Response Procedure Tolerated Well -Debridement - Subq, 1st 20sq cm Yes -Debridement, SubQ, ea addt'l 20sq cm 1 or part thereof #9 left Grt Toe Plantar Cluster -Time 10:19 -Correct Patient Yes -Correct Side, Site, Position Yes -Correct Procedure Yes -Procedure Performed Yes -Type of Procedure Debridement -Clinical Debridement Subcutaneous -Tissue Removed Subcutaneous -Post Debridement (cm) - Length 8 -Post Debridement (cm) - Width 2.6 -Post Debridement (cm) - Depth 0.1 -Total Square (Post) (cm) 20.8 -Area of Debridement (cm) - Length 8 -Area of Debridement (cm) - Width 2.6 -Total Square (Area) (cm) 20.8 -Tunneling No -Undermining/Tunneling No -Circular Undermining No -Wound/Ulcer Outcome Not Healed -Ulcer Cleansing Rinsed/ Irrigated with Saline -Foul Odor after Cleansing No -Bioengineered Tissue No -Bleeding Controlled with Pressure -Offloading Yes -Type of Offloading Surgical Shoe -Treatment Response Procedure Tolerated Well -Debridement - Subq, 1st 20sq cm No #8 R Grt Toe Cluster -Time 10:23 -Correct Patient Yes -Correct Side, Site, Position Yes -Correct Procedure Yes -Procedure Performed Yes -Type of Procedure Debridement -Clinical Debridement Subcutaneous -Tissue Removed Subcutaneous -Post Debridement (cm) - Length 0.7 -Post Debridement (cm) - Width 0.2 -Post Debridement (cm) - Depth 0.2 -Total Square (Post) (cm) 0.14 -Area of Debridement (cm) - Length 0.7 -Area of Debridement (cm) - Width 0.2 -Total Square (Area) (cm) 0.14 -Tunneling No -Undermining/Tunneling No -Circular Undermining No -Wound/Ulcer Outcome Not Healed -Ulcer Cleansing Rinsed/ Irrigated with Saline -Foul Odor after Cleansing No -Bioengineered Tissue No -Bleeding Controlled with Pressure -Offloading Yes -Type of Offloading Surgical Shoe -Treatment Response Procedure Tolerated Well -Debridement - Subq, 1st 20sq cm No Pain Scale: 0-10 Numeric Is Patient Pain Free? Yes WC - Nurse 3 - General Ulcer D/C NN Start: 08/13/20 09:40 Freq: Status: Active Protocol: Activity Type Activity Date Activity User E-Sign Co-Sign Detail Recorded Client Recorded Date Recorded By Document 08/13/20 10:43 DL [id number] 08/13/20 10:44 DL 08/13/20 10:43 Wound Care Nurse 3 #10 L 2nd Toe -Ulcer Cleansing Rinsed/ Irrigated with Saline -Foul Odor after Cleansing No -Primary Dressing Applied C Hydrogel ($), NonAdherent Contact Layer #9 left Grt Toe Plantar Cluster -Ulcer Cleansing Rinsed/ Irrigated with Saline -Foul Odor after Cleansing No -Primary Dressing Applied NonAdherent Contact Layer -Other Dressing hydrogel -Primary Dressing Covered/Secured with Dry Gauze & Roll Gauze, Secured with Tape #8 R Grt Toe Cluster -Ulcer Cleansing Rinsed/ Irrigated with Saline -Foul Odor after Cleansing No -Primary Dressing Applied NonAdherent Contact Layer -Other Dressing hydrogel -Primary Dressing Covered/Secured with Dry Gauze & Roll Gauze, Secured with Tape Treatment Response Procedure Tolerated Well Pain Scale: 0-10 Numeric Is Patient Pain Free? Yes WC - Visit Discharge Discharge Condition Stable Ambulatory Status Ambulatory Transportation Private Auto Wound debrided: hallux Laterality: Right Wound Grade/Stage: grade 1 Type of Debridement: Excisional debridement Anesthesia Used: 5% Lidocaine Gel Depth: in the subcutaneous layer Percentage of wound debrided: 100 Instrument Used: #15 blade Tissue Removed: fibrous, devitalized subcutaneous, biofilm, slough Severity: Fat Layer Exposed Amount of bleeding with debridement: Mild Bleeding Controlled with: Pressure Patient tolerated procedure well - Additional Wound Wound debrided: hallux, 2 toe, Laterality: Left Wound Grade/Stage: grade 1 Type of Debridement: Excisional debridement Anesthesia Used: 5% Lidocaine Gel Depth: in the subcutaneous layer Percentage of wound debrided: 100 Instrument Used: #15 blade Tissue Removed: fibrous, devitalized subcutaneous, biofilm, slough Severity: Fat Layer Exposed Amount of bleeding with debridement: Mild Bleeding Controlled with: Pressure Patient tolerated procedure: Patient tolerated procedure well Assessment/Plan Active Problems (Last Reviewed 01/01/19 @ 09:04 by JEFFREY Mcneill) Ulcer of right foot with fat layer exposed (Chronic) Ulcer of left foot with fat layer exposed (Chronic) Type 2 diabetes mellitus with diabetic polyneuropathy (Chronic) Venous insufficiency (Chronic) Leg edema (Chronic) Assessment: Ulcer right foot with fat layer exposed, Francois grade 1 without infection. Ulcer left foot with fat layer exposed, Francois grade 1 without infection. Recurrent blister formation secondary to edema and trauma versus other inflammatory skin condition versus bulbous pemphigoid; work-up in process. Diabetes with neuropathy. Peripheral vascular disease with arterial calcifications. Venous insufficiency. Bilateral lower extremity edema. Malnutrition suspected Plan: I reviewed and discussed his case. The etiology of his wound development and comprehensive treatment plan was discussed. Debridement was performed today as noted in the clinical panel. To change dressing daily with hydrogel and Adaptic. He was reassured no signs of local infection are noted. He has no current blisters and bulla which is fairly unusual and it is noted that this is occurring with both his hands and feet. Therefore, a punch biopsy was obtained at the foot and ankle center and this was performed through the [facility] lab. The report indicated epidermal ulceration with dermal fibrosis and impending tag in my station with reactive hyperkeratosis and superficial degeneration. This really is nonspecific from the histopathological features standpoint. A late bulla lesion cannot entirely be excluded and an intradepartmental consultation was placed. Additional results will continue to be followed and if this continues to happen a dermatology referral will be placed. He also understands it is not appropriate to force shoe gear use when he has increased edema. Previous noninvasive vascular lower extremity studies were reviewed and he has triphasic waveforms at bilateral ankles (04/02/20). To use bilateral Tubigrip's. This is for edema management. Venous studies from 12-05-2019 demonstrate bilateral greater saphenous incompetence consistent with venous insufficiency. I would like to review his updated CBC, CMP, and hemoglobin A1c levels. He relates he just had these blood test performed yesterday at the [facility]. Medical records will be requested. He would also benefit from advanced wound healing product application, epifix. The indications, benefits, anticipated application and management were reviewed. This is medically necessary for limb salvage. The benefits and indications anticipated application and management were reviewed. This was approved however he would still be responsible for an [id number] cost. He would like to consider this over the next week. Educational materials provided again we will review again next week. To continue with surgical shoe use and heel weightbearing keep pressure off of his ulcer sites. I answered all his questions.
[2020-08-20 10:45] VITALS: BP 127/62; PULSE 93; RESP 20; TEMP 37; BMI 37.4
--- NOTE | 2020-08-20 12:05 | PCM.WC.PN ---
(1) Ulcer of right foot with fat layer exposed Status: Resolved Code(s): L97.512 - Non-pressure chronic ulcer of other part of right foot with fat layer exposed (2) Ulcer of left foot with fat layer exposed Status: Chronic Code(s): L97.522 - Non-pressure chronic ulcer of other part of left foot with fat layer exposed (3) Type 2 diabetes mellitus with diabetic polyneuropathy Status: Chronic Code(s): E11.42 - Type 2 diabetes mellitus with diabetic polyneuropathy (4) Venous insufficiency Status: Chronic Code(s): I87.2 - Venous insufficiency (chronic) (peripheral) (5) Leg edema Status: Chronic Code(s): R60.0 - Localized edema Type of Wound Date of Service: 08/20/20 Chief Complaint: left and right foot ulcers History of Wound: This 55-year-old male presents to the wound healing center for management of bilateral forefoot ulcers after developing acute onset of very large blisters. The onset of his injury was 3. He denies fever, chill, nausea, vomiting. He is recently wearing offloading surgical shoes. He change his dressing with hydrogel. He has a history of delayed ulcer healing. He wears surgical offloading shoes. He is ready to proceed forward with epi fix application today. Progress of Wound: Improving left. Right healed - Physical Exam Vital Signs Temp Pulse Resp BP 98.6 F 93 20 H 127/62 H 08/20/20 10:45 08/20/20 10:45 08/20/20 10:45 08/20/20 10:45 General: Alert, Oriented x3, Cooperative, No apparent distress HEENT: Atraumatic Extremities: No cyanosis, Capillary Refill Less than 3 Seconds, No Calf Tenderness, Diminished Peripheral Pulses, Edema Skin: Ulcer/ Wound - No purulence, erythema, streaking, odor, infection. Adjacent skin atrophic, - - Full epithelialization right foot and this is healed and also to the left digits Wound Measurements and Assessment WC - Nurse 1 - General Ulcer Measurement Start: 08/13/20 09:40 Freq: Status: Active Protocol: Activity Type Activity Date Activity User E-Sign Co-Sign Detail Recorded Client Recorded Date Recorded By Document 08/20/20 10:45 DL [id number] 08/20/20 10:51 DL 08/20/20 10:45 Wound Center Nurse 1 [Ulcer Assessment] #10 L 2nd Toe -Current Size (cm) - Length 0.1 -Current Size (cm) - Width 0.1 -Current Size (cm) - Depth 0.1 -Total Square Cm 0.01 -Photo Taken No -Exudate Amt None Present -Wound Margin Thickened -Granulation Amt None Present (0 %) -Necrosis Amt Large (67-100%) -Necrotic Tissue Type Adherent Slough -Structure Exposed N/A -Texture (Susana-wound Skin Appearance) Callus -Moisture (Susana-wound Skin Appearance Dry/Scaly ) -Color (Susana-wound Skin Appearance) No Abnormality -Temperature (Susana-wound Skin No Abnormality Appearance) (Pt Warm) -Tenderness on Palpation (Susana-wound No Skin Appearance) -Ulcer Cleansing Rinsed/ Irrigated with Saline -Foul Odor after Cleansing No -Anesthetic Used 4% Lidocaine Solution #9 left Grt Toe Plantar Cluster -Current Size (cm) - Length 2.6 -Current Size (cm) - Width 2.5 -Current Size (cm) - Depth 0.1 -Total Square Cm 6.50 -Photo Taken No -Exudate Amt Small -Exudate Type Serosanguineous -Wound Margin Thickened -Granulation Amt Medium (34-66%) -Granulation Quality [place] -Necrosis Amt Medium (34-66%) -Necrotic Tissue Type Adherent Slough -Structure Exposed N/A -Texture (Susana-wound Skin Appearance) Callus,Scarring -Moisture (Susana-wound Skin Appearance Dry/Scaly ) -Color (Susana-wound Skin Appearance) No Abnormality -Temperature (Susana-wound Skin No Abnormality Appearance) (Pt Warm) -Tenderness on Palpation (Susana-wound No Skin Appearance) -Ulcer Cleansing Rinsed/ Irrigated with Saline -Foul Odor after Cleansing No -Anesthetic Used 4% Lidocaine Solution #8 R Grt Toe Cluster -Current Size (cm) - Length 0.1 -Current Size (cm) - Width 0.1 -Current Size (cm) - Depth 0.1 -Total Square Cm 0.01 -Photo Taken No -Exudate Amt None Present -Wound Margin Thickened -Granulation Amt None Present (0 %) -Necrosis Amt Large (67-100%) -Necrotic Tissue Type Adherent Slough -Structure Exposed N/A -Texture (Susana-wound Skin Appearance) Callus -Moisture (Susana-wound Skin Appearance Dry/Scaly ) -Color (Susana-wound Skin Appearance) No Abnormality -Temperature (Susana-wound Skin No Abnormality Appearance) (Pt Warm) -Tenderness on Palpation (Susana-wound No Skin Appearance) -Ulcer Cleansing Rinsed/ Irrigated with Saline -Foul Odor after Cleansing No -Anesthetic Used 4% Lidocaine Solution WC - Nurse 2 - General Ulcer CM Notes Start: 08/13/20 09:40 Freq: Status: Active Protocol: Activity Type Activity Date Activity User E-Sign Co-Sign Detail Recorded Client Recorded Date Recorded By Document 08/20/20 10:58 [id number] 08/20/20 11:10 08/20/20 10:58 Wound Center Nurse 2 [Procedure/Treatment] #10 L 2nd Toe -Correct Patient No -Correct Side, Site, Position No -Correct Procedure No -Procedure Performed No -Post Debridement (cm) - Length 0 -Post Debridement (cm) - Width 0 -Post Debridement (cm) - Depth 0 -Total Square (Post) (cm) 0 -Area of Debridement (cm) - Length 0 -Area of Debridement (cm) - Width 0 -Total Square (Area) (cm) 0 -Wound/Ulcer Outcome Healed- Epithelialized #9 left Grt Toe Plantar Cluster -Time 10:58 -Correct Patient Yes -Correct Side, Site, Position Yes -Correct Procedure Yes -Procedure Performed Yes -Type of Procedure Debridement -Clinical Debridement Subcutaneous -Tissue Removed Subcutaneous -Post Debridement (cm) - Length 2.6 -Post Debridement (cm) - Width 2.6 -Post Debridement (cm) - Depth 0.1 -Total Square (Post) (cm) 6.76 -Area of Debridement (cm) - Length 2.6 -Area of Debridement (cm) - Width 2.6 -Total Square (Area) (cm) 6.76 -Tunneling No -Undermining/Tunneling No -Circular Undermining No -Wound/Ulcer Outcome Not Healed -Ulcer Cleansing Rinsed/ Irrigated with Saline -Foul Odor after Cleansing No -Bioengineered Tissue Yes -Type of Bioengineered Tissue Epifix Mesh -Expiration Date 04/08/25 -Product Lot Number [id number] -Percent Used 100 -Lot number of Saline Used [id number] -Bleeding Controlled with Pressure -Offloading Yes -Type of Offloading Surgical Shoe -Treatment Response Procedure Tolerated Well -Debridement - Subq, 1st 20sq cm No -Apply Skin Sub - 1st 25 sq cm - Feet 1 -Epifix Mesh (per sq cm) 11 #8 R Grt Toe Cluster -Correct Patient No -Correct Side, Site, Position No -Correct Procedure No -Procedure Performed No -Post Debridement (cm) - Length 0 -Post Debridement (cm) - Width 0 -Post Debridement (cm) - Depth 0 -Total Square (Post) (cm) 0 -Area of Debridement (cm) - Length 0 -Area of Debridement (cm) - Width 0 -Total Square (Area) (cm) 0 -Wound/Ulcer Outcome Healed- Epithelialized [See Physician Procedure note for Specifics] Pain Scale: 0-10 Numeric [Pain] -Is Patient Pain Free? Yes - Nurse 3 - General Ulcer D/C NN Start: 08/13/20 09:40 Freq: Status: Active Protocol: Activity Type Activity Date Activity User E-Sign Co-Sign Detail Recorded Client Recorded Date Recorded By Document 08/20/20 11:34 DL [id number] 08/20/20 11:34 DL 08/20/20 11:34 Wound Care Nurse 3 [Wound Dressing] #9 left Grt Toe Plantar Cluster -Foul Odor after Cleansing No -Other Dressing graft today -Primary Dressing Covered/Secured Dry Gauze & with Roll Gauze, Secured with Tape [Post Procedure Tolerated] -Treatment Response Procedure Tolerated Well Pain Scale: 0-10 Numeric [Pain] -Is Patient Pain Free? Yes - Visit Discharge [Visit Discharge Information] -Discharge Condition Stable -Ambulatory Status Ambulatory -Transportation Private Auto Musculoskeletal: No Tenderness to Palpation of Joints or Extremities, Muscle Wasting Neurological: - - Lack of epicritic sensation to light touch is consistent with neuropathy Psych/Mental Status: Normal Affect, Appropriate Debridement Note Post-Debridement Measurements/Treatment - Nurse 2 - General Ulcer CM Notes Start: 08/13/20 09:40 Freq: Status: Active Protocol: Activity Type Activity Date Activity User E-Sign Co-Sign Detail Recorded Client Recorded Date Recorded By Document 08/13/20 10:12 [email or web address] [id number] 08/13/20 10:26 Document 08/20/20 10:58 [id number] 08/20/20 11:10 08/13/20 08/20/20 10:12 10:58 Wound Center Nurse 2 #13 L 5th Toe Cluster -Correct Patient No -Correct Side, Site, Position No -Correct Procedure No -Procedure Performed No -Post Debridement (cm) - Length 0 -Post Debridement (cm) - Width 0 -Post Debridement (cm) - Depth 0 -Total Square (Post) (cm) 0 -Area of Debridement (cm) - Length 0 -Area of Debridement (cm) - Width 0 -Total Square (Area) (cm) 0 -Wound/Ulcer Outcome Healed- Epithelialized #12 L 4th Toe -Correct Patient No -Correct Side, Site, Position No -Correct Procedure No -Procedure Performed No -Post Debridement (cm) - Length 0 -Post Debridement (cm) - Width 0 -Post Debridement (cm) - Depth 0 -Total Square (Post) (cm) 0 -Area of Debridement (cm) - Length 0 -Area of Debridement (cm) - Width 0 -Total Square (Area) (cm) 0 -Wound/Ulcer Outcome Healed- Epithelialized #10 L 2nd Toe -Time 10:18 -Correct Patient Yes No -Correct Side, Site, Position Yes No -Correct Procedure Yes No -Procedure Performed Yes No -Type of Procedure Debridement -Clinical Debridement Subcutaneous -Tissue Removed Subcutaneous -Post Debridement (cm) - Length 0.3 0 -Post Debridement (cm) - Width 1.0 0 -Post Debridement (cm) - Depth 0.1 0 -Total Square (Post) (cm) 0.30 0 -Area of Debridement (cm) - Length 0.3 0 -Area of Debridement (cm) - Width 1 0 -Total Square (Area) (cm) 0.3 0 -Tunneling No -Undermining/Tunneling No -Circular Undermining No -Wound/Ulcer Outcome Not Healed Healed- Epithelialized -Ulcer Cleansing Rinsed/ Irrigated with Saline -Foul Odor after Cleansing No -Bioengineered Tissue No -Bleeding Controlled with Pressure -Offloading Yes -Type of Offloading Surgical Shoe -Treatment Response Procedure Tolerated Well -Debridement - Subq, 1st 20sq cm Yes -Debridement, SubQ, ea addt'l 20sq cm 1 or part thereof #9 left Grt Toe Plantar Cluster -Time 10:19 10:58 -Correct Patient Yes Yes -Correct Side, Site, Position Yes Yes -Correct Procedure Yes Yes -Procedure Performed Yes Yes -Type of Procedure Debridement Debridement -Clinical Debridement Subcutaneous Subcutaneous -Tissue Removed Subcutaneous Subcutaneous -Post Debridement (cm) - Length 8 2.6 -Post Debridement (cm) - Width 2.6 2.6 -Post Debridement (cm) - Depth 0.1 0.1 -Total Square (Post) (cm) 20.8 6.76 -Area of Debridement (cm) - Length 8 2.6 -Area of Debridement (cm) - Width 2.6 2.6 -Total Square (Area) (cm) 20.8 6.76 -Tunneling No No -Undermining/Tunneling No No -Circular Undermining No No -Wound/Ulcer Outcome Not Healed Not Healed -Ulcer Cleansing Rinsed/ Rinsed/ Irrigated with Irrigated with Saline Saline -Foul Odor after Cleansing No No -Bioengineered Tissue No Yes -Type of Bioengineered Tissue Epifix Mesh -Expiration Date 04/08/25 -Product Lot Number [id number] -Percent Used 100 -Lot number of Saline Used [id number] -Bleeding Controlled with Pressure Pressure -Offloading Yes Yes -Type of Offloading Surgical Shoe Surgical Shoe -Treatment Response Procedure Procedure Tolerated Well Tolerated Well -Debridement - Subq, 1st 20sq cm No No -Apply Skin Sub - 1st 25 sq cm - Feet 1 -Epifix Mesh (per sq cm) 11 #8 R Grt Toe Cluster -Time 10:23 -Correct Patient Yes No -Correct Side, Site, Position Yes No -Correct Procedure Yes No -Procedure Performed Yes No -Type of Procedure Debridement -Clinical Debridement Subcutaneous -Tissue Removed Subcutaneous -Post Debridement (cm) - Length 0.7 0 -Post Debridement (cm) - Width 0.2 0 -Post Debridement (cm) - Depth 0.2 0 -Total Square (Post) (cm) 0.14 0 -Area of Debridement (cm) - Length 0.7 0 -Area of Debridement (cm) - Width 0.2 0 -Total Square (Area) (cm) 0.14 0 -Tunneling No -Undermining/Tunneling No -Circular Undermining No -Wound/Ulcer Outcome Not Healed Healed- Epithelialized -Ulcer Cleansing Rinsed/ Irrigated with Saline -Foul Odor after Cleansing No -Bioengineered Tissue No -Bleeding Controlled with Pressure -Offloading Yes -Type of Offloading Surgical Shoe -Treatment Response Procedure Tolerated Well -Debridement - Subq, 1st 20sq cm No Pain Scale: 0-10 Numeric Is Patient Pain Free? Yes Yes - Nurse 3 - General Ulcer D/C NN Start: 08/13/20 09:40 Freq: Status: Active Protocol: Activity Type Activity Date Activity User E-Sign Co-Sign Detail Recorded Client Recorded Date Recorded By Document 08/13/20 10:43 DL [id number] 08/13/20 10:44 DL Document 08/20/20 11:34 DL [id number] 08/20/20 11:34 DL 08/13/20 08/20/20 10:43 11:34 Wound Care Nurse 3 #10 L 2nd Toe -Ulcer Cleansing Rinsed/ Irrigated with Saline -Foul Odor after Cleansing No -Primary Dressing Applied C Hydrogel ($), NonAdherent Contact Layer #9 left Grt Toe Plantar Cluster -Ulcer Cleansing Rinsed/ Irrigated with Saline -Foul Odor after Cleansing No No -Primary Dressing Applied NonAdherent Contact Layer -Other Dressing hydrogel graft today -Primary Dressing Covered/Secured with Dry Gauze & Dry Gauze & Roll Gauze, Roll Gauze, Secured with Secured with Tape Tape #8 R Grt Toe Cluster -Ulcer Cleansing Rinsed/ Irrigated with Saline -Foul Odor after Cleansing No -Primary Dressing Applied NonAdherent Contact Layer -Other Dressing hydrogel -Primary Dressing Covered/Secured with Dry Gauze & Roll Gauze, Secured with Tape Treatment Response Procedure Procedure Tolerated Well Tolerated Well Pain Scale: 0-10 Numeric Is Patient Pain Free? Yes Yes - Visit Discharge Discharge Condition Stable Stable Ambulatory Status Ambulatory Ambulatory Transportation Private Auto Private Auto Wound debrided: plantar hallux/medial foot Laterality: Left Wound Grade/Stage: grade 1 Type of Debridement: Excisional debridement Anesthesia Used: 5% Lidocaine Gel Depth: in the subcutaneous layer Percentage of wound debrided: 100 Instrument Used: #15 blade Tissue Removed: fibrous, devitalized subcuteanous, biofilm, slough Severity: Fat Layer Exposed Amount of bleeding with debridement: Mild Bleeding Controlled with: Pressure Patient tolerated procedure well Assessment/Plan Active Problems (Last Reviewed 01/01/19 @ 09:04 by JEFFREY Mcneill) Ulcer of left foot with fat layer exposed (Chronic) Type 2 diabetes mellitus with diabetic polyneuropathy (Chronic) Venous insufficiency (Chronic) Leg edema (Chronic) Assessment: Ulcer right foot with fat layer exposed, Francois grade 1 without infection. Ulcer left foot with fat layer exposed, Francois grade 1 without infection. Recurrent blister formation secondary to edema and trauma versus other inflammatory skin condition versus bulbous pemphigoid; work-up in process. Diabetes with neuropathy. Peripheral vascular disease with arterial calcifications. Venous insufficiency. Bilateral lower extremity edema. Malnutrition suspected Plan: I reviewed and discussed his case. The etiology of his wound development and comprehensive treatment plan was discussed. Debridement was performed today as noted in the clinical panel. It is noted the right foot ulcer has healed and also all of the lesser toe ulcers on the left foot. He is amenable to proceed forward with advanced wound healing problem be fixed today. Verbal consent was obtained and this was applied according standard protocol. This was additionally secured in place with a wound veil and Steri-Strips. A secondary gauze dressing was applied and he was advised to keep this clean, dry, and intact until follow-up next week. He tolerated the procedure very well. The indications, benefits, anticipated application and ongoing management were discussed. This is medically necessary for limb salvage. Prior to potential future applications if needed size reduction will be evaluated to see if he would benefit from additional applications. He was reassured no signs of local infection are noted. He has no current blisters and bulla which is fairly unusual and it is noted that this is occurring with both his hands and feet. Therefore, a punch biopsy was obtained at the foot and ankle center and this was performed through the [facility] lab. The report indicated epidermal ulceration with dermal fibrosis and impending tag in my station with reactive hyperkeratosis and superficial degeneration. This really is nonspecific from the histopathological features standpoint. A late bulla lesion cannot entirely be excluded and an intradepartmental consultation was placed. Additional results will continue to be followed and if this continues to happen a dermatology referral will be placed. He also understands it is not appropriate to force shoe gear use when he has increased edema. Previous noninvasive vascular lower extremity studies were reviewed and he has triphasic waveforms at bilateral ankles (04/02/20). To use bilateral Tubigrip's. This is for edema management. Venous studies from 12-05-2019 demonstrate bilateral greater saphenous incompetence consistent with venous insufficiency. I would like to review his updated CBC, CMP, and hemoglobin A1c levels. He relates he just had these blood test performed yesterday at the [facility]. Medical records will be requested. To wear Tubigrip's for edema management. To continue with surgical shoe use and heel weightbearing keep pressure off of his ulcer sites. I answered all his questions. Note: [employer] speech recognition medical facilities section director software was used to create portions of this document. Sound-alike and misspelled words, as well as other medical facilities section director errors may be contained in the documentation.
[2020-08-27 11:06] VITALS: RESP 18; TEMP 36.8; BMI 37.4
--- NOTE | 2020-08-27 14:54 | PCM.WC.PN ---
(1) Ulcer of right foot with fat layer exposed Status: Resolved Code(s): L97.512 - Non-pressure chronic ulcer of other part of right foot with fat layer exposed (2) Ulcer of left foot with fat layer exposed Status: Chronic Code(s): L97.522 - Non-pressure chronic ulcer of other part of left foot with fat layer exposed (3) Type 2 diabetes mellitus with diabetic polyneuropathy Status: Chronic Code(s): E11.42 - Type 2 diabetes mellitus with diabetic polyneuropathy (4) Venous insufficiency Status: Chronic Code(s): I87.2 - Venous insufficiency (chronic) (peripheral) (5) Leg edema Status: Chronic Code(s): R60.0 - Localized edema Type of Wound Date of Service: 08/27/20 Chief Complaint: left foot ulcers History of Wound: This 55-year-old male presents to the wound healing center for management of bilateral forefoot ulcers after developing acute onset of very large blisters. The onset of his injury was 3. He denies fever, chill, nausea, vomiting. He is recently wearing offloading surgical shoes. He change his dressing with hydrogel. He also had 1 application of epifix performed last week and kept his dressing clean, dry, and intact. In general, he has a history of delayed ulcer healing. He wears surgical offloading shoes. Progress of Wound: Improving left - Physical Exam Vital Signs Temp Pulse Resp BP 98.2 F 93 18 127/62 H 08/27/20 11:06 08/20/20 10:45 08/27/20 11:06 08/20/20 10:45 General: Alert, Oriented x3, Cooperative, No apparent distress HEENT: Atraumatic Extremities: No cyanosis, Capillary Refill Less than 3 Seconds, No Calf Tenderness, Edema, Peripheral Pulses Normal Skin: Ulcer/ Wound - No purulence, erythema, streaking, odor, infection left foot. Significant peripheral epithelialization and healing progression noted. No maceration, necrosis or deep tissue exposure. Adjacent skin is atrophic Wound Measurements and Assessment WC - Nurse 1 - General Ulcer Measurement Start: 08/13/20 09:40 Freq: Status: Active Protocol: Activity Type Activity Date Activity User E-Sign Co-Sign Detail Recorded Client Recorded Date Recorded By Document 08/27/20 11:06 RB [id number] 08/27/20 11:13 RB 08/27/20 11:06 Wound Center Nurse 1 [Ulcer Assessment] #9 left Grt Toe Plantar Cluster -Combined with other wound No -Current Size (cm) - Length 7.5 -Current Size (cm) - Width 1.8 -Current Size (cm) - Depth 0.1 -Total Square Cm 13.50 -Tunneling No -Undermining/Tunneling No -Circular Undermining No -Exudate Amt Medium -Exudate Type Serosanguineous -Wound Margin Distinct, Outline Attached -Granulation Amt Medium (34-66%) -Granulation Quality [place] -Slough/Fibrin Yes -Necrosis Amt Medium (34-66%) -Necrotic Tissue Type Adherent Slough -Structure Exposed N/A -Texture (Susana-wound Skin Appearance) Scarring -Moisture (Susana-wound Skin Appearance Dry/Scaly ) -Color (Susana-wound Skin Appearance) Assessed -Temperature (Susana-wound Skin No Abnormality Appearance) (Pt Warm) -Tenderness on Palpation (Susana-wound No Skin Appearance) -Ulcer Cleansing Wound Cleanser -Foul Odor after Cleansing No -Anesthetic Used 4% Lidocaine Solution WC - Nurse 2 - General Ulcer CM Notes Start: 08/13/20 09:40 Freq: Status: Active Protocol: Activity Type Activity Date Activity User E-Sign Co-Sign Detail Recorded Client Recorded Date Recorded By Document 08/27/20 11:24 [email or web address] [id number] 08/27/20 11:31 [email or web address] 08/27/20 11:24 Wound Center Nurse 2 [Procedure/Treatment] -Time 11:24 -Correct Patient Yes -Correct Side, Site, Position Yes -Correct Procedure Yes -Procedure Performed Yes -Type of Procedure Debridement -Clinical Debridement Subcutaneous -Tissue Removed Subcutaneous -Post Debridement (cm) - Length 7.4 -Post Debridement (cm) - Width 1.0 -Post Debridement (cm) - Depth 0.2 -Total Square (Post) (cm) 7.40 -Area of Debridement (cm) - Length 7.4 -Area of Debridement (cm) - Width 1 -Total Square (Area) (cm) 7.4 -Tunneling No -Undermining/Tunneling No -Circular Undermining No -Wound/Ulcer Outcome Not Healed -Ulcer Cleansing Rinsed/ Irrigated with Saline -Foul Odor after Cleansing No -Bioengineered Tissue No -Bleeding Controlled with Pressure -Offloading Yes -Type of Offloading Surgical Shoe -Treatment Response Procedure Tolerated Well -Debridement - Subq, 1st 20sq cm Yes [See Physician Procedure note for Specifics] Pain Scale: 0-10 Numeric [Pain] -Is Patient Pain Free? Yes - Nurse 3 - General Ulcer D/C NN Start: 08/13/20 09:40 Freq: Status: Active Protocol: Activity Type Activity Date Activity User E-Sign Co-Sign Detail Recorded Client Recorded Date Recorded By Document 08/27/20 11:43 DL [id number] 08/27/20 11:43 DL 08/27/20 11:43 Wound Care Nurse 3 [Wound Dressing] #9 left Grt Toe Plantar Cluster -Ulcer Cleansing Rinsed/ Irrigated with Saline -Foul Odor after Cleansing No -Primary Dressing Applied C Hydrogel ($), NonAdherent Contact Layer -Primary Dressing Covered/Secured Dry Gauze & with Roll Gauze, Secured with Tape [Post Procedure Tolerated] -Treatment Response Procedure Tolerated Well - Visit Discharge [Visit Discharge Information] -Discharge Condition Stable -Ambulatory Status Ambulatory -Transportation Private Auto Musculoskeletal: No Tenderness to Palpation of Joints or Extremities, Muscle Wasting Neurological: - - Lack of normal epicritic sensation light touch is consistent with neuropathic status Psych/Mental Status: Normal Affect, Appropriate Debridement Note Post-Debridement Measurements/Treatment - Nurse 2 - General Ulcer CM Notes Start: 08/13/20 09:40 Freq: Status: Active Protocol: Activity Type Activity Date Activity User E-Sign Co-Sign Detail Recorded Client Recorded Date Recorded By Document 08/13/20 10:12 [id number] 08/13/20 10:26 Document 08/20/20 10:58 [id number] 08/20/20 11:10 Document 08/27/20 11:24 [id number] 08/27/20 11:31 08/13/20 08/20/20 08/27/20 10:12 10:58 11:24 Wound Center Nurse 2 #13 L 5th Toe Cluster -Correct Patient No -Correct Side, Site, Position No -Correct Procedure No -Procedure Performed No -Post Debridement (cm) - Length 0 -Post Debridement (cm) - Width 0 -Post Debridement (cm) - Depth 0 -Total Square (Post) (cm) 0 -Area of Debridement (cm) - Length 0 -Area of Debridement (cm) - Width 0 -Total Square (Area) (cm) 0 -Wound/Ulcer Outcome Healed- Epithelialized #12 L 4th Toe -Correct Patient No -Correct Side, Site, Position No -Correct Procedure No -Procedure Performed No -Post Debridement (cm) - Length 0 -Post Debridement (cm) - Width 0 -Post Debridement (cm) - Depth 0 -Total Square (Post) (cm) 0 -Area of Debridement (cm) - Length 0 -Area of Debridement (cm) - Width 0 -Total Square (Area) (cm) 0 -Wound/Ulcer Outcome Healed- Epithelialized #10 L 2nd Toe -Time 10:18 -Correct Patient Yes No -Correct Side, Site, Position Yes No -Correct Procedure Yes No -Procedure Performed Yes No -Type of Procedure Debridement -Clinical Debridement Subcutaneous -Tissue Removed Subcutaneous -Post Debridement (cm) - Length 0.3 0 -Post Debridement (cm) - Width 1.0 0 -Post Debridement (cm) - Depth 0.1 0 -Total Square (Post) (cm) 0.30 0 -Area of Debridement (cm) - Length 0.3 0 -Area of Debridement (cm) - Width 1 0 -Total Square (Area) (cm) 0.3 0 -Tunneling No -Undermining/Tunneling No -Circular Undermining No -Wound/Ulcer Outcome Not Healed Healed- Epithelialized -Ulcer Cleansing Rinsed/ Irrigated with Saline -Foul Odor after Cleansing No -Bioengineered Tissue No -Bleeding Controlled with Pressure -Offloading Yes -Type of Offloading Surgical Shoe -Treatment Response Procedure Tolerated Well -Debridement - Subq, 1st 20sq cm Yes -Debridement, SubQ, ea addt'l 20sq cm 1 or part thereof #9 left Grt Toe Plantar Cluster -Time 10:19 10:58 11:24 -Correct Patient Yes Yes Yes -Correct Side, Site, Position Yes Yes Yes -Correct Procedure Yes Yes Yes -Procedure Performed Yes Yes Yes -Type of Procedure Debridement Debridement Debridement -Clinical Debridement Subcutaneous Subcutaneous Subcutaneous -Tissue Removed Subcutaneous Subcutaneous Subcutaneous -Post Debridement (cm) - Length 8 2.6 7.4 -Post Debridement (cm) - Width 2.6 2.6 1.0 -Post Debridement (cm) - Depth 0.1 0.1 0.2 -Total Square (Post) (cm) 20.8 6.76 7.40 -Area of Debridement (cm) - Length 8 2.6 7.4 -Area of Debridement (cm) - Width 2.6 2.6 1 -Total Square (Area) (cm) 20.8 6.76 7.4 -Tunneling No No No -Undermining/Tunneling No No No -Circular Undermining No No No -Wound/Ulcer Outcome Not Healed Not Healed Not Healed -Ulcer Cleansing Rinsed/ Rinsed/ Rinsed/ Irrigated with Irrigated with Irrigated with Saline Saline Saline -Foul Odor after Cleansing No No No -Bioengineered Tissue No Yes No -Type of Bioengineered Tissue Epifix Mesh -Expiration Date 04/08/25 -Product Lot Number [id number] -Percent Used 100 -Lot number of Saline Used [id number] -Bleeding Controlled with Pressure Pressure Pressure -Offloading Yes Yes Yes -Type of Offloading Surgical Shoe Surgical Shoe Surgical Shoe -Treatment Response Procedure Procedure Procedure Tolerated Well Tolerated Well Tolerated Well -Debridement - Subq, 1st 20sq cm No No Yes -Apply Skin Sub - 1st 25 sq cm - Feet 1 -Epifix Mesh (per sq cm) 11 #8 R Grt Toe Cluster -Time 10:23 -Correct Patient Yes No -Correct Side, Site, Position Yes No -Correct Procedure Yes No -Procedure Performed Yes No -Type of Procedure Debridement -Clinical Debridement Subcutaneous -Tissue Removed Subcutaneous -Post Debridement (cm) - Length 0.7 0 -Post Debridement (cm) - Width 0.2 0 -Post Debridement (cm) - Depth 0.2 0 -Total Square (Post) (cm) 0.14 0 -Area of Debridement (cm) - Length 0.7 0 -Area of Debridement (cm) - Width 0.2 0 -Total Square (Area) (cm) 0.14 0 -Tunneling No -Undermining/Tunneling No -Circular Undermining No -Wound/Ulcer Outcome Not Healed Healed- Epithelialized -Ulcer Cleansing Rinsed/ Irrigated with Saline -Foul Odor after Cleansing No -Bioengineered Tissue No -Bleeding Controlled with Pressure -Offloading Yes -Type of Offloading Surgical Shoe -Treatment Response Procedure Tolerated Well -Debridement - Subq, 1st 20sq cm No Pain Scale: 0-10 Numeric Is Patient Pain Free? Yes Yes Yes - Nurse 3 - General Ulcer D/C NN Start: 08/13/20 09:40 Freq: Status: Active Protocol: Activity Type Activity Date Activity User E-Sign Co-Sign Detail Recorded Client Recorded Date Recorded By Document 08/13/20 10:43 DL [id number] 08/13/20 10:44 DL Document 08/20/20 11:34 DL [id number] 08/20/20 11:34 DL Document 08/27/20 11:43 DL [id number] 08/27/20 11:43 DL 08/13/20 08/20/20 08/27/20 10:43 11:34 11:43 Wound Care Nurse 3 #10 L 2nd Toe -Ulcer Cleansing Rinsed/ Irrigated with Saline -Foul Odor after Cleansing No -Primary Dressing Applied C Hydrogel ($), NonAdherent Contact Layer #9 left Grt Toe Plantar Cluster -Ulcer Cleansing Rinsed/ Rinsed/ Irrigated with Irrigated with Saline Saline -Foul Odor after Cleansing No No No -Primary Dressing Applied NonAdherent C Hydrogel ($), Contact Layer NonAdherent Contact Layer -Other Dressing hydrogel graft today -Primary Dressing Covered/Secured with Dry Gauze & Dry Gauze & Dry Gauze & Roll Gauze, Roll Gauze, Roll Gauze, Secured with Secured with Secured with Tape Tape Tape #8 R Grt Toe Cluster -Ulcer Cleansing Rinsed/ Irrigated with Saline -Foul Odor after Cleansing No -Primary Dressing Applied NonAdherent Contact Layer -Other Dressing hydrogel -Primary Dressing Covered/Secured with Dry Gauze & Roll Gauze, Secured with Tape Treatment Response Procedure Procedure Procedure Tolerated Well Tolerated Well Tolerated Well Pain Scale: 0-10 Numeric Is Patient Pain Free? Yes Yes WC - Visit Discharge Discharge Condition Stable Stable Stable Ambulatory Status Ambulatory Ambulatory Ambulatory Transportation Private Auto Private Auto Private Auto Wound debrided: plantar medial foot Laterality: Left Wound Grade/Stage: grade 1 Type of Debridement: Excisional debridement Anesthesia Used: 5% Lidocaine Gel Depth: in the subcutaneous layer Percentage of wound debrided: 30 Instrument Used: #15 blade Tissue Removed: fibrous, devitalized subcutaneous, biofilm, slough Severity: Fat Layer Exposed Amount of bleeding with debridement: Mild Bleeding Controlled with: Pressure Patient tolerated procedure well Assessment/Plan Active Problems (Last Reviewed 01/01/19 @ 09:04 by Samuel MURPHY, JEFFREY) Ulcer of left foot with fat layer exposed (Chronic) Type 2 diabetes mellitus with diabetic polyneuropathy (Chronic) Venous insufficiency (Chronic) Leg edema (Chronic) Assessment: Ulcer right foot ulcer healed. Ulcer left foot with fat layer exposed, Francois grade 1 without infection - improving. Onset: Recurrent blister formation secondary to edema and trauma versus other inflammatory skin condition versus bulbous pemphigoid; work-up remains non diagnostic. Diabetes with neuropathy. Peripheral vascular disease with arterial calcifications. Venous insufficiency. Bilateral lower extremity edema. Malnutrition suspected Plan: I reviewed and discussed his case. The etiology of his wound development and comprehensive treatment plan was discussed. Debridement was performed today as noted in the clinical panel. It is noted the right foot ulcer has healed and also all of the lesser toe ulcers on the left foot. He is amenable to proceed forward with advanced wound healing product epifix if additional insurance authorization is obtained. He had his first application last week and demonstrated significant improvement including ulcer bed improvement, reduction in size with ongoing peripheral epithelialization. This is medically necessary for limb salvage. While we are waiting for additional insurance approval, he was advised to change the dressing with Adaptic and hydrogel. A secondary gauze dressing was applied and he was advised to change his dressing daily. He tolerated the procedure very well. He was reassured no signs of local infection are noted. He has no current blisters and bulla which is fairly unusual and it is noted that this is occurring with both his hands and feet. Therefore, a previous punch biopsy was obtained at the foot and ankle center and this was performed through the [facility] lab. The report indicated epidermal ulceration with dermal fibrosis and impending tag in my station with reactive hyperkeratosis and superficial degeneration. This really is nonspecific from the histopathological features standpoint. A late bulla lesion cannot entirely be excluded and an intradepartmental consultation was placed. Additional results will continue to be followed and if this continues to happen a dermatology referral will be placed. He also understands it is not appropriate to force shoe gear use when he has increased edema. Previous noninvasive vascular lower extremity studies were reviewed and he has triphasic waveforms at bilateral ankles (04/02/20). To use bilateral Tubigrip's. This is for edema management. Venous studies from 12-05-2019 demonstrate bilateral greater saphenous incompetence consistent with venous insufficiency. I would like to review his updated CBC, CMP, and hemoglobin A1c levels. He relates he just had these blood test performed yesterday at the [facility]. Medical records will be requested. To wear Tubigrip's for edema management. To continue with surgical shoe use and heel weightbearing keep pressure off of his ulcer sites. I answered all his questions. Note: [employer] speech recognition heading and priming operator software was used to create portions of this document. Sound-alike and misspelled words, as well as other heading and priming operator errors may be contained in the documentation.
[2020-09-03 10:14] VITALS: BP 147/77; PULSE 90; RESP 18; TEMP 37.1; BMI 37.4
--- NOTE | 2020-09-03 14:35 | PCM.PROGNOTE ---
Subjective Subjective: 55 year old male was seen [facility] today for left foot ulcers secondary to acute blisters. He reports decreased drainage. He denies fever, chills, nausea, vomiting. Objective Data Objective Data Vital Signs: Vital Signs Temp Pulse Resp BP 98.8 F 90 18 147/77 H 09/03/20 10:14 09/03/20 10:14 09/03/20 10:14 09/03/20 10:14 Weight: 132.15 kg Body Mass Index (BMI) 37.4 Finger Stick Blood Glucose 178 Physical Exam Const alert and oriented x3 General Appearance: cooperative HEENT normocephalic Extremity normal capillary refill Extremity Narrative: no cyanosis, no calf tenderness, diminished pulses muscle wasting noted. no tenderness. General Extremity: edema Skin Skin Narrative: no purulence, no erythema, no streaking, no odor, no infection. Adjacent skin is atrophic. significant ulcer reduction size and epithelialization. one ulcer remains plantar medial forefoot with granular base Neuro Neuro Narrative: lack of normal epicritic sensation via light touch consistent with neuropathy Assessment & Plan Assessment/Plan (1) Ulcer of left foot with fat layer exposed: Status: Chronic Code(s): L97.522 - Non-pressure chronic ulcer of other part of left foot with fat layer exposed (2) Type 2 diabetes mellitus with diabetic polyneuropathy: Status: Chronic Code(s): E11.42 - Type 2 diabetes mellitus with diabetic polyneuropathy Plan: Procedure- Location: plantar medial left foot Excisional debridement performed Anesthesia: 5% lidocaine plain Debridement layer: subcutaneous Amount of debridement: 100% Instrumentation used: 15 blade Tissue debrided: fibrous, devitalized subcutaneous, biofilm, slough Exposed tissue: fat layer Bleeding: mild Hemostasis controlled: pressure The patient tolerated the procedure well Assessment:Ulcer left foot with fat layer exposed, Francois grade 1 without infection - improving. Diabetes with neuropathy. Peripheral vascular disease with arterial calcifications. Venous insufficiency. Bilateral lower extremity edema. Malnutrition suspected Plan: I reviewed and discussed his case. The etiology of his wound development and comprehensive treatment plan was discussed. Debridement was performed today as noted in the clinical nursing documentation / panel (pre and post debridement measurements are included). It is noted the right foot ulcer has healed and also all of the lesser toe ulcers on the left foot. He has changed the dressing with Adaptic and hydrogel. He had one prior epifix application with improvement. A secondary gauze dressing was applied and he was advised to change his dressing daily. He was reassured no signs of local infection are noted. To control edema with tubigrip and limb elevation. He also understands it is not appropriate to force shoe gear use when he has increased edema. Previous noninvasive vascular lower extremity studies were reviewed and he has triphasic waveforms at bilateral ankles (04/02/20). To use bilateral Tubigrip's. This is for edema management. Venous studies from 12-05-2019 demonstrate bilateral greater saphenous incompetence consistent with venous insufficiency. To continue with surgical shoe use and heel weightbearing keep pressure off of his ulcer sites. I answered all his questions. Note: [employer] speech recognition tire fabric impregnating range tender software was used to create portions of this document. Sound-alike and misspelled words, as well as other tire fabric impregnating range tender errors may be contained in the documentation
== END 2020-09-05 23:59 ==
LOC: WC 10:15
PROVIDERS: PCP Student in an Organized Health Care Education/Training Program; Visit Provider Podiatrist
DX: E11.621 Type 2 diabetes mellitus with foot ulcer (principal); I87.2 Venous insufficiency (chronic) (peripheral); E11.42 Type 2 diabetes mellitus with diabetic polyneuropathy; L97.512 Non-pressure chronic ulcer of other part of right foot with fat layer exposed; L97.522 Non-pressure chronic ulcer of other part of left foot with fat layer exposed; R60.0 Localized edema; E11.51 Type 2 diabetes mellitus with diabetic peripheral angiopathy without gangrene
CPT/HCPCS: 11042; 11045; 15275; Q4186

== ENCOUNTER 2020-10-01 10:00 | Outpatient (RCR) | payer OTHER, SELFPAY ==
[2020-09-06 00:48] VITALS: BP 147/77; PULSE 90; RESP 18; TEMP 37.1
[2020-09-10 10:25] VITALS: BP 127/64; PULSE 100; RESP 20; TEMP 36.6; BMI 37.4
--- NOTE | 2020-09-10 16:27 | PCM.WC.PN ---
History of Present Illness Date of Service: 09/12/20 Chief Complaint: left foot ulcers History of Wound: This 55-year-old male presents to the wound healing center for management of bilateral forefoot ulcers after developing acute onset of very large blisters. The onset of his injury was 07-11-20. He denies fever, chill, nausea, vomiting. He is recently wearing offloading surgical shoes. He change his dressing with hydrogel. He also had 1 application of epifix performed last week and kept his dressing clean, dry, and intact. In general, he has a history of delayed ulcer healing. He wears surgical offloading shoes. Objective Data Objective Data Vital Signs: Vital Signs Temp Pulse Resp BP 97.8 F 100 20 H 127/64 H 09/10/20 10:25 09/10/20 10:25 09/10/20 10:09/10/20 10:25 Weight: 132.15 kg Body Mass Index (BMI) 37.4 Finger Stick Blood Glucose 178 Assessment & Plan Assessment/Plan (1) Ulcer of left foot with fat layer exposed: (2) Type 2 diabetes mellitus with diabetic polyneuropathy: (3) Venous insufficiency: (4) Leg edema: (5) Type 2 diabetes mellitus with diabetic polyneuropathy: PLAN: I reviewed and discussed his case.? The etiology of his wound development and comprehensive treatment plan was discussed. Debridement was performed today as noted in the clinical nursing documentation / panel (pre and post debridement measurements are included).? It is noted the right foot ulcer has healed and also all of the lesser toe ulcers on the left foot.? He has changed the dressing with Adaptic and hydrogel.? He had one prior epifix application with improvement. A secondary gauze dressing was applied and he was advised to change his dressing daily. ? He was reassured no signs of local infection are noted. This is in process; additional prior authorization is needed for more application. To control edema with tubigrip and limb elevation.? He also understands it is not appropriate to force shoe gear use when he has increased edema. Previous noninvasive vascular lower extremity studies were reviewed and he has triphasic waveforms at bilateral ankles (04/02/20). To use bilateral Tubigrip's. This is for edema management. Venous studies from 12-05-2019 demonstrate bilateral greater saphenous incompetence consistent with venous insufficiency.? To continue with surgical shoe use and heel weightbearing keep pressure off of his ulcer sites.? I answered all his questions.? Note: [employer] speech recognition training consultant software was used to create portions of this document. Sound-alike and misspelled words, as well as other training consultant errors may be contained in the documentation Physical Exam Const alert and oriented x3 General Appearance: cooperative HEENT normocephalic Extremity Extremity Narrative: No calf tenderness Diminished pulses Muscle wasting noted General Extremity: edema and no tenderness to palpation of joints or extremities; Negative for cyanosis Skin Skin Narrative: no purulence, no streaking, no odor, no infection The skin discontinuity dorsal fourth toe is very superficial. Reduced ulcer/plantar medial foot with peripheral epithelialization. No maceration or necrosis General Skin Exam: Negative for erythema Neuro Neuro Narrative: lack of normal epicritic sensation via light touch is consistent with neuropathy status Psych cooperative and affect normal Debridement Note Debridement Note Post-Debridement Measurements and Additional Note: Pre debridement measurements: plantar medial foot 0.8 x 1.5 x 0.2 cm and dorsal 4th toe 0.2 x 0.2 x 0.1 cm Post-Debridement Measurements/Treatment WC - Nurse 2 - General Ulcer CM Notes Start: 09/10/20 10:22 Freq: Status: Active Protocol: Activity Type Activity Date Activity User E-Sign Co-Sign Detail Recorded Client Recorded Date Recorded By Document 09/10/20 10:52 [email or web address] [id number] 09/10/20 10:57 [email or web address] 09/10/20 10:52 Wound Center Nurse 2 14-left 4th toe ulcer -Time 10:53 -Correct Patient Yes -Correct Side, Site, Position Yes -Correct Procedure Yes -Procedure Performed Yes -Type of Procedure Debridement -Clinical Debridement Subcutaneous -Tissue Removed Subcutaneous -Post Debridement (cm) - Length 0.3 -Post Debridement (cm) - Width 0.3 -Post Debridement (cm) - Depth 0.1 -Total Square (Post) (cm) 0.09 -Area of Debridement (cm) - Length 0.3 -Area of Debridement (cm) - Width 0.3 -Total Square (Area) (cm) 0.09 -Tunneling No -Undermining/Tunneling No -Circular Undermining No -Wound/Ulcer Outcome Not Healed -Ulcer Cleansing Rinsed/ Irrigated with Saline -Foul Odor after Cleansing No -Bioengineered Tissue No -Bleeding Controlled with Pressure -Type of Offloading Surgical Shoe -Debridement - Subq, 1st 20sq cm No #9 left Grt Toe Plantar Cluster -Time 10:52 -Correct Patient Yes -Correct Side, Site, Position Yes -Correct Procedure Yes -Procedure Performed Yes -Type of Procedure Debridement -Clinical Debridement Subcutaneous -Tissue Removed Subcutaneous -Post Debridement (cm) - Length 0.9 -Post Debridement (cm) - Width 1.6 -Post Debridement (cm) - Depth 0.2 -Total Square (Post) (cm) 1.44 -Area of Debridement (cm) - Length 0.9 -Area of Debridement (cm) - Width 1.6 -Total Square (Area) (cm) 1.44 -Tunneling No -Undermining/Tunneling No -Circular Undermining No -Wound/Ulcer Outcome Not Healed -Ulcer Cleansing Rinsed/ Irrigated with Saline -Foul Odor after Cleansing No -Bioengineered Tissue No -Bleeding Controlled with Pressure -Offloading Yes -Type of Offloading Surgical Shoe -Treatment Response Procedure Tolerated Well -Debridement - Subq, 1st 20sq cm Yes Pain Scale: 0-10 Numeric Is Patient Pain Free? Yes Wound debrided: plantar medial foot and dorsal fourth toe Wound Grade/Stage: 1 Type of Debridement: Excisional debridement Anesthesia Used: 4% Lidocaine Solution Depth: in the subcutaneous layer Percentage of wound debrided: 100 Instrument Used: #15 blade Tissue Removed: fibrous, devitalized subcutaneous, biofilm, slough Severity: Fat Layer Exposed Amount of bleeding with debridement: Mild Bleeding Controlled with: Pressure Patient tolerated procedure: Patient tolerated procedure well
[2020-09-17 10:18] VITALS: BP 145/72; PULSE 98; RESP 18; TEMP 36.3; BMI 37.4
--- NOTE | 2020-09-17 11:07 | PCM.WC.PN ---
History of Present Illness Date of Service: 09/17/20 Chief Complaint: left foot ulcers History of Wound: This 55-year-old male presents to the wound healing center for management of bilateral forefoot ulcers after developing acute onset of very large blisters. The onset of his injury was 07-11-20. He denies fever, chill, nausea, vomiting. He is wearing offloading surgical shoes. He change his dressing with hydrogel. In general, he has a history of delayed ulcer healing. He denies redness or odor. Objective Data Objective Data Vital Signs: Vital Signs Temp Pulse Resp BP 97.3 F L 98 18 145/72 H 09/17/20 10:18 09/17/20 10:18 09/17/20 10:18 09/17/20 10:18 Weight: 132.15 kg Body Mass Index (BMI) 37.4 Finger Stick Blood Glucose 178 Assessment & Plan Assessment/Plan (1) Ulcer of left foot with fat layer exposed: (2) Type 2 diabetes mellitus with diabetic polyneuropathy: (3) Venous insufficiency: (4) Leg edema: PLAN: I reviewed and discussed his case. The etiology of his wound development and comprehensive treatment plan was discussed. Debridement was performed today as noted in the clinical nursing documentation / panel. It is noted his fourth toe ulcer has healed. It is noted the right foot ulcer has healed and also all of the lesser toe ulcers on the left foot. He has changed the dressing with Adaptic and hydrogel. He had one prior epifix application with improvement. He was reassured no signs of local infection are noted. To control edema with tubigrip and limb elevation. He also understands it is not appropriate to force shoe gear use when he has increased edema. Previous noninvasive vascular lower extremity studies were reviewed and he has triphasic waveforms at bilateral ankles (04/02/20). To use bilateral Tubigrip's. This is for edema management. Venous studies from 12-05-2019 demonstrate bilateral greater saphenous incompetence consistent with venous insufficiency. To continue with surgical shoe use and heel weightbearing keep pressure off of his ulcer sites. Additional Plastizote liner with ulcer offloading pocket was fabricated today. I answered all his questions. Note: [employer] speech recognition certified ophthalmic technician software was used to create portions of this document. Sound-alike and misspelled words, as well as other certified ophthalmic technician errors may be contained in the documentation Physical Exam Const alert and oriented x3 General Appearance: cooperative HEENT normocephalic Extremity Extremity Narrative: No calf tenderness Diminished pulses Muscle wasting noted General Extremity: edema and no tenderness to palpation of joints or extremities; Negative for cyanosis Skin Skin Narrative: no purulence, no streaking, no odor, no infection The skin discontinuity dorsal fourth toe is very superficial. Reduced ulcer/plantar medial foot with peripheral epithelialization. No maceration or necrosis. Full epithelialization to digital ulcers General Skin Exam: Negative for erythema Neuro Neuro Narrative: lack of normal epicritic sensation via light touch is consistent with neuropathy status Psych cooperative and affect normal Debridement Note Debridement Note Post-Debridement Measurements and Additional Note: Post-Debridement Measurements/Treatment WC - Nurse 1 - General Ulcer Assessment Start: 09/10/20 10:22 Freq: Status: Active Protocol: LIZZETTE Activity Type Activity Date Activity User E-Sign Co-Sign Detail Recorded Client Recorded Date Recorded By Document 09/10/20 10:25 DL [id number] 09/10/20 10:31 DL Document 09/17/20 10:18 RB [id number] 09/17/20 10:27 RB 09/10/20 09/17/20 10:25 10:18 - Today's Visit Information Type of service Follow-up Visit Follow-up Visit (Physician/[employer] (Physician/ACETY[employer]E [employer] ) ) Arrival Mode Ambulatory Ambulatory Transfer Assistance None None Patient Identification Verified (Name & Yes Yes ) Patient Requires Transmission-Based No No Precautions Finger Stick Blood Sugar(mg/dl) (if 139 indicated): Blood Sugar Stated by Patient Height and Weight Body Mass Index (BMI) 37.4 37.4 BMI Classification Obese Obese Vital Signs Temperature (97.8 F-99.1 F) 97.8 F 97.3 F L Temperature Source Temporal Temporal Pulse Rate (60-100) 100 98 Pulse Location Monitor Monitor Respiratory Rate (12-18) 20 H 18 Respiratory rate source Observation Observation Blood Pressure (90/60-120/80) 127/64 H 145/72 H Blood Pressure Mean (mm Hg) 85 96 Source Monitor Monitor Position Semi-Fowlers Blood Pressure Location Left Arm History Since Last Visit- (Skip if this is Patient's initial visit) Have you changed medications since your No No last visit? Any new allergies or adverse reactions No No Had a fall/change in ADL's that may No No increase risk of falls Signs or symptoms of abuse and/or No No neglect since last visit Have you been in the hospital since your No No last visit? Has dressing in place as prescribed Yes Yes Has compression in place as prescribed No Yes Has offloadiing in place as prescribed Yes Yes Experienced any changes in pain level or No No management Left Footwear Surgical Shoe Surgical Shoe with pressure with pressure relief insole relief insole Right Footwear Regular Shoe Pain Scale: 0-10 Numeric Is Patient Pain Free? Yes Yes WC - Nurse 1 - General Ulcer Measurement Start: 09/10/20 10:22 Freq: Status: Active Protocol: Activity Type Activity Date Activity User E-Sign Co-Sign Detail Recorded Client Recorded Date Recorded By Document 09/10/20 10:25 DL [id number] 09/10/20 10:31 DL Document 09/17/20 10:18 RB [id number] 09/17/20 10:27 RB Edit Result 09/17/20 10:18 RB (1) [id number] 09/17/20 10:29 RB (1) Lower Limb Edema Present => Yes Left Calf (cm) => 42.2 Left Ankle (cm) => 24 09/10/20 09/17/20 10:25 10:18 Wound Center Nurse 1 14-left 4th toe ulcer -Combined with other wound No -Current Size (cm) - Length 0 -Current Size (cm) - Width 0 -Current Size (cm) - Depth 0 -Total Square Cm 0 -Epithelialization Large 67-100% -Tunneling No -Undermining/Tunneling No -Circular Undermining No #9 left Grt Toe Plantar Cluster -Combined with other wound No -Current Size (cm) - Length 0.5 0.5 -Current Size (cm) - Width 1.1 0.7 -Current Size (cm) - Depth 0.2 0.1 -Total Square Cm 0.55 0.35 -Photo Taken No -Tunneling No -Undermining/Tunneling No -Circular Undermining No -Exudate Amt None Present Small -Exudate Type Serosanguineous -Wound Margin Thickened Thickened -Granulation Amt Large (67-100%) Medium (34-66%) -Granulation Quality Radar Base Radar Base -Slough/Fibrin Yes -Necrosis Amt Small (1-33%) Small (1-33%) -Necrotic Tissue Type Adherent Slough Adherent Slough -Structure Exposed N/A N/A -Texture (Susana-wound Skin Appearance) Callus Callus -Moisture (Susana-wound Skin Appearance) Dry/Scaly Assessed -Color (Susana-wound Skin Appearance) No Abnormality Assessed -Temperature (Susana-wound Skin No Abnormality No Abnormality Appearance) (Pt Warm) (Pt Warm) -Tenderness on Palpation (Susana-wound No No Skin Appearance) -Ulcer Cleansing Wound Cleanser Wound Cleanser -Foul Odor after Cleansing No No -Anesthetic Used 4% Lidocaine 4% Lidocaine Solution Solution Lower Limb Edema Present Yes Left Calf (cm) 41.6 42.2 Left Ankle (cm) 23.8 24 WC - Nurse 2 - General Ulcer CM Notes Start: 09/10/20 10:22 Freq: Status: Active Protocol: Activity Type Activity Date Activity User E-Sign Co-Sign Detail Recorded Client Recorded Date Recorded By Document 09/10/20 10:52 [id number] 09/10/20 10:57 Document 09/17/20 10:35 [id number] 09/17/20 10:41 09/10/20 09/17/20 10:52 10:35 Wound Center Nurse 2 14-left 4th toe ulcer -Time 10:53 -Correct Patient Yes No -Correct Side, Site, Position Yes No -Correct Procedure Yes No -Procedure Performed Yes No -Type of Procedure Debridement -Clinical Debridement Subcutaneous -Tissue Removed Subcutaneous -Post Debridement (cm) - Length 0.3 0 -Post Debridement (cm) - Width 0.3 0 -Post Debridement (cm) - Depth 0.1 0 -Total Square (Post) (cm) 0.09 0 -Area of Debridement (cm) - Length 0.3 0 -Area of Debridement (cm) - Width 0.3 0 -Total Square (Area) (cm) 0.09 0 -Tunneling No -Undermining/Tunneling No -Circular Undermining No -Wound/Ulcer Outcome Not Healed Healed- Epithelialized -Ulcer Cleansing Rinsed/ Irrigated with Saline -Foul Odor after Cleansing No -Bioengineered Tissue No -Bleeding Controlled with Pressure -Type of Offloading Surgical Shoe -Debridement - Subq, 1st 20sq cm No #9 left Grt Toe Plantar Cluster -Time 10:52 10:36 -Correct Patient Yes Yes -Correct Side, Site, Position Yes Yes -Correct Procedure Yes Yes -Procedure Performed Yes Yes -Type of Procedure Debridement Debridement -Clinical Debridement Subcutaneous Subcutaneous -Tissue Removed Subcutaneous Subcutaneous -Post Debridement (cm) - Length 0.9 1.5 -Post Debridement (cm) - Width 1.6 0.4 -Post Debridement (cm) - Depth 0.2 0.1 -Total Square (Post) (cm) 1.44 0.60 -Area of Debridement (cm) - Length 0.9 1.5 -Area of Debridement (cm) - Width 1.6 0.4 -Total Square (Area) (cm) 1.44 0.60 -Tunneling No No -Undermining/Tunneling No No -Circular Undermining No No -Wound/Ulcer Outcome Not Healed Not Healed -Ulcer Cleansing Rinsed/ Rinsed/ Irrigated with Irrigated with Saline Saline -Foul Odor after Cleansing No No -Bioengineered Tissue No No -Bleeding Controlled with Pressure Pressure -Offloading Yes Yes -Type of Offloading Surgical Shoe Surgical Shoe -Treatment Response Procedure Procedure Tolerated Well Tolerated Well -Debridement - Subq, 1st 20sq cm Yes Yes Pain Scale: 0-10 Numeric Is Patient Pain Free? Yes Yes - Nurse 3 - General Ulcer D/C NN Start: 09/10/20 10:22 Freq: Status: Active Protocol: Activity Type Activity Date Activity User E-Sign Co-Sign Detail Recorded Client Recorded Date Recorded By Document 09/17/20 10:53 DL [id number] 09/17/20 10:55 DL 09/17/20 10:53 Wound Care Nurse 3 #9 left Grt Toe Plantar Cluster -Ulcer Cleansing Rinsed/ Irrigated with Saline -Foul Odor after Cleansing No -Primary Dressing Applied NonAdherent Contact Layer -Other Dressing hydrogel -Primary Dressing Covered/Secured with Dry Gauze & Roll Gauze, Secured with Tape Left -Other tubigrip Treatment Response Procedure Tolerated Well Pain Scale: 0-10 Numeric Is Patient Pain Free? Yes - Visit Discharge Discharge Condition Stable Ambulatory Status Ambulatory Transportation Private Auto Wound debrided: plantar medial left forefoot Wound Grade/Stage: 1 Type of Debridement: Excisional debridement Anesthesia Used: 4% Lidocaine Solution Depth: in the subcutaneous layer Percentage of wound debrided: 100 Instrument Used: #15 blade Tissue Removed: fibrous, devitalized subcutaneous, biofilm, slough Severity: Fat Layer Exposed Amount of bleeding with debridement: Mild Bleeding Controlled with: Pressure Patient tolerated procedure: Patient tolerated procedure well
[2020-09-24 09:48] VITALS: BP 139/68; PULSE 106; RESP 18; TEMP 37; BMI 37.4
--- NOTE | 2020-09-24 22:17 | PN.PCM_ITS ---
History of Present Illness Date of Service: 09/27/20 Chief Complaint: left foot ulcers History of Wound: This 55-year-old male presents to the wound healing center for management of bilateral forefoot ulcers after developing acute onset of very large blisters. The onset of his injury was 07-11-20. He denies fever, chill, nausea, vomiting. He is wearing offloading surgical shoes. He change his dressing with hydrogel. In general, he has a history of delayed ulcer healing. He denies redness or odor. Progress of Wound: improving Objective Data Objective Data Vital Signs: Vital Signs Temp Pulse Resp BP 98.6 F 106 H 18 139/68 H 09/24/20 09:48 09/24/20 09:48 09/24/20 09:48 09/24/20 09:48 Weight: 132.15 kg Body Mass Index (BMI) 37.4 Physical Exam Const alert and oriented x3 General Appearance: cooperative HEENT normocephalic Extremity Extremity Narrative: No calf tenderness Diminished pulses Muscle wasting noted General Extremity: edema and no tenderness to palpation of joints or extremities; Negative for cyanosis Skin Skin Narrative: no purulence, no streaking, no odor, no infection The skin discontinuity dorsal fourth toe is very superficial. Reduced ulcer/plantar medial foot with peripheral epithelialization. No maceration or necrosis. Full epithelialization to digital ulcers General Skin Exam: Negative for erythema Neuro Neuro Narrative: lack of normal epicritic sensation via light touch is consistent with neuropathy status Psych cooperative and affect normal Debridement Note Debridement Note Post-Debridement Measurements and Additional Note: Post-Debridement Measurements/Treatment - Nurse 1 - General Ulcer Assessment Start: 09/10/20 10:22 Freq: Status: Active Protocol: LIZZETTE Activity Type Activity Date Activity User E-Sign Co-Sign Detail Recorded Client Recorded Date Recorded By Document 09/10/20 10:25 DL [id number] 09/10/20 10:31 DL Document 09/17/20 10:18 RB [id number] 09/17/20 10:27 RB Document 09/24/20 09:48 RB [id number] 09/24/20 09:53 RB 09/10/20 09/17/20 09/24/20 10:25 10:18 09:48 - Today's Visit Information Type of service Follow-up Visit Follow-up Visit Follow-up Visit (Physician/OUTSIDE UPHOLSTERER (Physician/OUTSIDE UPHOLSTERER (Physician/OUTSIDE UPHOLSTERER ) ) ) Arrival Mode Ambulatory Ambulatory Ambulatory Transfer Assistance None None None Patient Identification Verified (Name & Yes Yes Yes ) Patient Requires Transmission-Based No No No Precautions Finger Stick Blood Sugar(mg/dl) (if 139 140 indicated): Blood Sugar Stated by Stated by Patient Patient Height and Weight Body Mass Index (BMI) 37.4 37.4 37.4 BMI Classification Obese Obese Obese Vital Signs Temperature (97.8 F-99.1 F) 97.8 F 97.3 F L 98.6 F Temperature Source Temporal Temporal Temporal Pulse Rate (60-100) 100 98 106 H Pulse Location Monitor Monitor Monitor Respiratory Rate (12-18) 20 H 18 18 Respiratory rate source Observation Observation Observation Blood Pressure (90/60-120/80) 127/64 H 145/72 H 139/68 H Blood Pressure Mean (mm Hg) 85 96 91 Source Monitor Monitor Monitor Position Semi-Fowlers Semi-Fowlers Blood Pressure Location Left Arm Left Arm History Since Last Visit- (Skip if this is Patient's initial visit) Have you changed medications since your No No No last visit? Any new allergies or adverse reactions No No No Had a fall/change in ADL's that may No No No increase risk of falls Signs or symptoms of abuse and/or No No No neglect since last visit Have you been in the hospital since your No No No last visit? Has dressing in place as prescribed Yes Yes Yes Has compression in place as prescribed No Yes Yes Has offloadiing in place as prescribed Yes Yes Yes Experienced any changes in pain level or No No No management Left Footwear Surgical Shoe Surgical Shoe with pressure with pressure relief insole relief insole Right Footwear Regular Shoe Pain Scale: 0-10 Numeric Is Patient Pain Free? Yes Yes Yes WC - Nurse 1 - General Ulcer Measurement Start: 09/10/20 10:22 Freq: Status: Active Protocol: Activity Type Activity Date Activity User E-Sign Co-Sign Detail Recorded Client Recorded Date Recorded By Document 09/10/20 10:25 DL [id number] 09/10/20 10:31 DL Document 09/17/20 10:18 RB [id number] 09/17/20 10:27 RB Edit Result 09/17/20 10:18 RB (1) [id number] 09/17/20 10:29 RB Document 09/24/20 09:48 RB [id number] 09/24/20 09:53 RB (1) Lower Limb Edema Present => Yes Left Calf (cm) => 42.2 Left Ankle (cm) => 24 09/10/20 09/17/20 09/24/20 10:25 10:18 09:48 Wound Center Nurse 1 14-left 4th toe ulcer -Combined with other wound No -Current Size (cm) - Length 0 -Current Size (cm) - Width 0 -Current Size (cm) - Depth 0 -Total Square Cm 0 -Epithelialization Large 67-100% -Tunneling No -Undermining/Tunneling No -Circular Undermining No #9 left Grt Toe Plantar Cluster -Combined with other wound No No -Current Size (cm) - Length 0.5 0.5 0.3 -Current Size (cm) - Width 1.1 0.7 0.3 -Current Size (cm) - Depth 0.2 0.1 0.1 -Total Square Cm 0.55 0.35 0.09 -Photo Taken No -Tunneling No No -Undermining/Tunneling No No -Circular Undermining No No -Exudate Amt None Present Small Small -Exudate Type Serosanguineous Serosanguineous -Wound Margin Thickened Thickened Flat & Intact -Granulation Amt Large (67-100%) Medium (34-66%) Medium (34-66%) -Granulation Quality Mabie Mabie Mabie -Slough/Fibrin Yes Yes -Necrosis Amt Small (1-33%) Small (1-33%) Small (1-33%) -Necrotic Tissue Type Adherent Slough Adherent Slough Adherent Slough -Structure Exposed N/A N/A N/A -Texture (Susana-wound Skin Appearance) Callus Callus Callus -Moisture (Susana-wound Skin Appearance) Dry/Scaly Assessed Assessed -Color (Susana-wound Skin Appearance) No Abnormality Assessed Assessed -Temperature (Susana-wound Skin No Abnormality No Abnormality No Abnormality Appearance) (Pt Warm) (Pt Warm) (Pt Warm) -Tenderness on Palpation (Susana-wound No No No Skin Appearance) -Ulcer Cleansing Wound Cleanser Wound Cleanser Wound Cleanser -Foul Odor after Cleansing No No No -Anesthetic Used 4% Lidocaine 4% Lidocaine 4% Lidocaine Solution Solution Solution Lower Limb Edema Present Yes Left Calf (cm) 41.6 42.2 Left Ankle (cm) 23.8 24 WC - Nurse 2 - General Ulcer CM Notes Start: 09/10/20 10:22 Freq: Status: Active Protocol: Activity Type Activity Date Activity User E-Sign Co-Sign Detail Recorded Client Recorded Date Recorded By Document 09/10/20 10:52 [id number] 09/10/20 10:57 JF Document 09/17/20 10:35 JF [id number] 09/17/20 10:41 JF Document 09/24/20 10:06 [id number] 09/24/20 10:09 JF 09/10/20 09/17/20 09/24/20 10:52 10:35 10:06 Wound Center Nurse 2 14-left 4th toe ulcer -Time 10:53 -Correct Patient Yes No -Correct Side, Site, Position Yes No -Correct Procedure Yes No -Procedure Performed Yes No -Type of Procedure Debridement -Clinical Debridement Subcutaneous -Tissue Removed Subcutaneous -Post Debridement (cm) - Length 0.3 0 -Post Debridement (cm) - Width 0.3 0 -Post Debridement (cm) - Depth 0.1 0 -Total Square (Post) (cm) 0.09 0 -Area of Debridement (cm) - Length 0.3 0 -Area of Debridement (cm) - Width 0.3 0 -Total Square (Area) (cm) 0.09 0 -Tunneling No -Undermining/Tunneling No -Circular Undermining No -Wound/Ulcer Outcome Not Healed Healed- Epithelialized -Ulcer Cleansing Rinsed/ Irrigated with Saline -Foul Odor after Cleansing No -Bioengineered Tissue No -Bleeding Controlled with Pressure -Type of Offloading Surgical Shoe -Debridement - Subq, 1st 20sq cm No #9 left Grt Toe Plantar Cluster -Time 10:52 10:36 10:06 -Correct Patient Yes Yes Yes -Correct Side, Site, Position Yes Yes Yes -Correct Procedure Yes Yes Yes -Procedure Performed Yes Yes Yes -Type of Procedure Debridement Debridement Debridement -Clinical Debridement Subcutaneous Subcutaneous Subcutaneous -Tissue Removed Subcutaneous Subcutaneous Subcutaneous -Post Debridement (cm) - Length 0.9 1.5 0.9 -Post Debridement (cm) - Width 1.6 0.4 0.5 -Post Debridement (cm) - Depth 0.2 0.1 0.2 -Total Square (Post) (cm) 1.44 0.60 0.45 -Area of Debridement (cm) - Length 0.9 1.5 0.9 -Area of Debridement (cm) - Width 1.6 0.4 0.5 -Total Square (Area) (cm) 1.44 0.60 0.45 -Tunneling No No No -Undermining/Tunneling No No No -Circular Undermining No No No -Wound/Ulcer Outcome Not Healed Not Healed Not Healed -Ulcer Cleansing Rinsed/ Rinsed/ Rinsed/ Irrigated with Irrigated with Irrigated with Saline Saline Saline -Foul Odor after Cleansing No No No -Bioengineered Tissue No No No -Bleeding Controlled with Pressure Pressure Pressure -Offloading Yes Yes Yes -Type of Offloading Surgical Shoe Surgical Shoe Surgical Shoe -Treatment Response Procedure Procedure Procedure Tolerated Well Tolerated Well Tolerated Well -Debridement - Subq, 1st 20sq cm Yes Yes Yes Pain Scale: 0-10 Numeric Is Patient Pain Free? Yes Yes Yes - Nurse 3 - General Ulcer D/C NN Start: 09/10/20 10:22 Freq: Status: Active Protocol: Activity Type Activity Date Activity User E-Sign Co-Sign Detail Recorded Client Recorded Date Recorded By Document 09/17/20 10:53 DL [id number] 09/17/20 10:55 DL Document 09/24/20 10:21 RB [id number] 09/24/20 10:22 RB 09/17/20 09/24/20 10:53 10:21 Wound Care Nurse 3 #9 left Grt Toe Plantar Cluster -Ulcer Cleansing Rinsed/ Rinsed/ Irrigated with Irrigated with Saline Saline -Foul Odor after Cleansing No -Primary Dressing Applied NonAdherent NonAdherent Contact Layer Contact Layer -Other Dressing hydrogel hydrogel -Primary Dressing Covered/Secured with Dry Gauze & Dry Gauze,Dry Roll Gauze, Gauze & Roll Secured with Gauze,Secured Tape with Tape Left -Other tubigrip single layer tubigrip Treatment Response Procedure Procedure Tolerated Well Tolerated Well Pain Scale: 0-10 Numeric Is Patient Pain Free? Yes Yes - Visit Discharge Discharge Condition Stable Stable Ambulatory Status Ambulatory Ambulatory Transportation Private Auto Private Auto Medication Reconcilliation completed & No provided to patient/care provider Clinical Summary of Care Provided Yes Wound debrided: left foot Wound Grade/Stage: 1 Type of Debridement: Excisional debridement Anesthesia Used: 4% Lidocaine Solution Depth: in the subcutaneous layer Percentage of wound debrided: 100 Instrument Used: #15 blade Tissue Removed: fibrous, devitalized subcutaneous, biofilm, slough Severity: Fat Layer Exposed Amount of bleeding with debridement: Mild Bleeding Controlled with: Pressure Patient tolerated procedure: Patient tolerated procedure well Assessment/Plan Assessment/Plan (1) Ulcer of left foot with fat layer exposed: CODE(S): Code(s): L97.522 - Non-pressure chronic ulcer of other part of left foot with fat layer exposed (2) Type 2 diabetes mellitus with diabetic polyneuropathy: CODE(S): Code(s): E11.42 - Type 2 diabetes mellitus with diabetic polyneuropathy (3) Venous insufficiency: CODE(S): Code(s): I87.2 - Venous insufficiency (chronic) (peripheral) (4) Leg edema: CODE(S): Code(s): R60.0 - Localized edema PLAN: I reviewed and discussed his case. The etiology of his wound development and comprehensive treatment plan was discussed. Debridement was performed today as noted in the clinical nursing documentation / panel. It is noted his fourth toe ulcer has healed. It is noted the right foot ulcer has healed and also all of the lesser toe ulcers on the left foot. He has changed the dressing with Adaptic and hydrogel. He had one prior epifix application with improvement. He was reassured no signs of local infection are noted. To control edema with tubigrip and limb elevation. He also understands it is not appropriate to force shoe gear use when he has increased edema. Previous noninvasive vascular lower extremity studies were reviewed and he has triphasic waveforms at bilateral ankles (04/02/20). To use bilateral Tubigrip's. This is for edema management. Venous studies from 12-05-2019 demonstrate bilateral greater saphenous incompetence consistent with venous insufficiency. To continue with surgical shoe use and heel weightbearing keep pressure off of his ulcer sites. Additional Plastizote liner with ulcer offloading pocket was fabricated previously. This was not present today and he was advised to resume use. I answered all his questions. Note: [employer] speech recognition can machine operator software was used to create portions of this document. Sound-alike and misspelled words, as well as other can machine operator errors may be contained in the documentation
[2020-10-01 10:23] VITALS: BP 155/78; PULSE 92; RESP 18; TEMP 36.7; BMI 37.4
--- NOTE | 2020-10-01 10:43 | PN.PCM_ITS ---
History of Present Illness Date of Service: 10/01/20 Chief Complaint: left foot ulcers History of Wound: This 55-year-old male presents to the wound healing center for management of bilateral forefoot ulcers after developing acute onset of very large blisters. The onset of his injury was 3-09-26. He denies fever, chill, nausea, vomiting. He is wearing offloading surgical shoes. He change his dressing with hydrogel. In general, he has a history of delayed ulcer healing. He denies redness or odor.He wants to go swimming. Progress of Wound: improving Objective Data Objective Data Vital Signs: Vital Signs Temp Pulse Resp BP 98.1 F 92 18 155/78 H 10/01/20 10:23 10/01/20 10:23 10/01/20 10:23 10/01/20 10:23 Weight: 132.15 kg Body Mass Index (BMI) 37.4 Physical Exam Const alert and oriented x3 General Appearance: cooperative HEENT normocephalic Extremity Extremity Narrative: No calf tenderness Diminished pulses Muscle wasting noted General Extremity: edema and no tenderness to palpation of joints or extremities; Negative for cyanosis Skin Skin Narrative: no purulence, no streaking, no odor, no infection The skin discontinuity dorsal fourth toe is very superficial. Reduced ulcer/plantar medial foot with peripheral epithelialization. No maceration or necrosis. General Skin Exam: Negative for erythema Neuro Neuro Narrative: lack of normal epicritic sensation via light touch is consistent with neuropathy status Psych cooperative and affect normal Debridement Note Debridement Note Post-Debridement Measurements and Additional Note: Post-Debridement Measurements/Treatment - Nurse 1 - General Ulcer Assessment Start: 09/10/20 10:22 Freq: Status: Active Protocol: LIZZETTE Activity Type Activity Date Activity User E-Sign Co-Sign Detail Recorded Client Recorded Date Recorded By Document 09/10/20 10:25 DL [id number] 09/10/20 10:31 DL Document 09/17/20 10:18 RB [id number] 09/17/20 10:27 RB Document 09/24/20 09:48 RB [id number] 09/24/20 09:53 RB Document 10/01/20 10:23 DL [id number] 10/01/20 10:28 DL 09/10/20 09/17/20 09/24/20 10:25 10:18 09:48 - Today's Visit Information Type of service Follow-up Visit Follow-up Visit Follow-up Visit (Physician/MANAGER WOUND CARE (Physician/MANAGER WOUND CARE (Physician/MANAGER WOUND CARE ) ) ) Arrival Mode Ambulatory Ambulatory Ambulatory Transfer Assistance None None None Patient Identification Verified (Name & Yes Yes Yes ) Patient Requires Transmission-Based No No No Precautions Finger Stick Blood Sugar(mg/dl) (if 139 140 indicated): Blood Sugar Stated by Stated by Patient Patient Height and Weight Body Mass Index (BMI) 37.4 37.4 37.4 BMI Classification Obese Obese Obese Vital Signs Temperature (97.8 F-99.1 F) 97.8 F 97.3 F L 98.6 F Temperature Source Temporal Temporal Temporal Pulse Rate (60-100) 100 98 106 H Pulse Location Monitor Monitor Monitor Respiratory Rate (12-18) 20 H 18 18 Respiratory rate source Observation Observation Observation Blood Pressure (90/60-120/80) 127/64 H 145/72 H 139/68 H Blood Pressure Mean (mm Hg) 85 96 91 Source Monitor Monitor Monitor Position Semi-Fowlers Semi-Fowlers Blood Pressure Location Left Arm Left Arm History Since Last Visit- (Skip if this is Patient's initial visit) Have you changed medications since your No No No last visit? Any new allergies or adverse reactions No No No Had a fall/change in ADL's that may No No No increase risk of falls Signs or symptoms of abuse and/or No No No neglect since last visit Have you been in the hospital since your No No No last visit? Has dressing in place as prescribed Yes Yes Yes Has compression in place as prescribed No Yes Yes Has offloadiing in place as prescribed Yes Yes Yes Experienced any changes in pain level or No No No management Left Footwear Surgical Shoe Surgical Shoe with pressure with pressure relief insole relief insole Right Footwear Regular Shoe Pain Scale: 0-10 Numeric Is Patient Pain Free? Yes Yes Yes 10/01/20 10:23 WC - Today's Visit Information Type of service Follow-up Visit (Physician/MANAGER WOUND CARE ) Arrival Mode Ambulatory Transfer Assistance None Patient Identification Verified (Name & Yes ) Patient Requires Transmission-Based No Precautions Finger Stick Blood Sugar(mg/dl) (if 132 indicated): Blood Sugar Stated by Patient Height and Weight Body Mass Index (BMI) 37.4 BMI Classification Obese Vital Signs Temperature (97.8 F-99.1 F) 98.1 F Temperature Source Temporal Pulse Rate (60-100) 92 Pulse Location Monitor Respiratory Rate (12-18) 18 Respiratory rate source Observation Blood Pressure (90/60-120/80) 155/78 H Blood Pressure Mean (mm Hg) 103 Source Monitor Position Blood Pressure Location History Since Last Visit- (Skip if this is Patient's initial visit) Have you changed medications since your No last visit? Any new allergies or adverse reactions No Had a fall/change in ADL's that may No increase risk of falls Signs or symptoms of abuse and/or No neglect since last visit Have you been in the hospital since your last visit? Has dressing in place as prescribed Yes Has compression in place as prescribed Yes Has offloadiing in place as prescribed N/A Experienced any changes in pain level or No management Left Footwear Right Footwear Pain Scale: 0-10 Numeric Is Patient Pain Free? Yes WC - Nurse 1 - General Ulcer Measurement Start: 09/10/20 10:22 Freq: Status: Active Protocol: Activity Type Activity Date Activity User E-Sign Co-Sign Detail Recorded Client Recorded Date Recorded By Document 09/10/20 10:25 DL [id number] 09/10/20 10:31 DL Document 09/17/20 10:18 RB [id number] 09/17/20 10:27 RB Edit Result 09/17/20 10:18 RB (1) [id number] 09/17/20 10:29 RB Document 09/24/20 09:48 RB [id number] 09/24/20 09:53 RB Document 10/01/20 10:23 DL [id number] 10/01/20 10:28 DL (1) Lower Limb Edema Present => Yes Left Calf (cm) => 42.2 Left Ankle (cm) => 24 09/10/20 09/17/20 09/24/20 10:25 10:18 09:48 Wound Center Nurse 1 14-left 4th toe ulcer -Combined with other wound No -Current Size (cm) - Length 0 -Current Size (cm) - Width 0 -Current Size (cm) - Depth 0 -Total Square Cm 0 -Epithelialization Large 67-100% -Tunneling No -Undermining/Tunneling No -Circular Undermining No #9 left Grt Toe Plantar Cluster -Combined with other wound No No -Current Size (cm) - Length 0.5 0.5 0.3 -Current Size (cm) - Width 1.1 0.7 0.3 -Current Size (cm) - Depth 0.2 0.1 0.1 -Total Square Cm 0.55 0.35 0.09 -Photo Taken No -Tunneling No No -Undermining/Tunneling No No -Circular Undermining No No -Exudate Amt None Present Small Small -Exudate Type Serosanguineous Serosanguineous -Wound Margin Thickened Thickened Flat & Intact -Granulation Amt Large (67-100%) Medium (34-66%) Medium (34-66%) -Granulation Quality Rockwall Rockwall Rockwall -Slough/Fibrin Yes Yes -Necrosis Amt Small (1-33%) Small (1-33%) Small (1-33%) -Necrotic Tissue Type Adherent Slough Adherent Slough Adherent Slough -Structure Exposed N/A N/A N/A -Texture (Susana-wound Skin Appearance) Callus Callus Callus -Moisture (Susana-wound Skin Appearance) Dry/Scaly Assessed Assessed -Color (Susana-wound Skin Appearance) No Abnormality Assessed Assessed -Temperature (Susana-wound Skin No Abnormality No Abnormality No Abnormality Appearance) (Pt Warm) (Pt Warm) (Pt Warm) -Tenderness on Palpation (Susana-wound No No No Skin Appearance) -Ulcer Cleansing Wound Cleanser Wound Cleanser Wound Cleanser -Foul Odor after Cleansing No No No -Anesthetic Used 4% Lidocaine 4% Lidocaine 4% Lidocaine Solution Solution Solution Lower Limb Edema Present Yes Left Calf (cm) 41.6 42.2 Left Ankle (cm) 23.8 24 10/01/20 10:23 Wound Center Nurse 1 14-left 4th toe ulcer -Combined with other wound -Current Size (cm) - Length -Current Size (cm) - Width -Current Size (cm) - Depth -Total Square Cm -Epithelialization -Tunneling -Undermining/Tunneling -Circular Undermining #9 left Grt Toe Plantar Cluster -Combined with other wound -Current Size (cm) - Length 0.3 -Current Size (cm) - Width 0.2 -Current Size (cm) - Depth 0.1 -Total Square Cm 0.06 -Photo Taken No -Tunneling -Undermining/Tunneling -Circular Undermining -Exudate Amt Small -Exudate Type Serosanguineous -Wound Margin Distinct, Outline Attached -Granulation Amt Small (1-33%) -Granulation Quality [place]wall -Slough/Fibrin -Necrosis Amt Small (1-33%) -Necrotic Tissue Type Adherent Slough -Structure Exposed N/A -Texture (Susana-wound Skin Appearance) Scarring -Moisture (Susana-wound Skin Appearance) No Abnormality -Color (Susana-wound Skin Appearance) No Abnormality -Temperature (Susana-wound Skin No Abnormality Appearance) (Pt Warm) -Tenderness on Palpation (Susana-wound No Skin Appearance) -Ulcer Cleansing Wound Cleanser -Foul Odor after Cleansing No -Anesthetic Used 4% Lidocaine Solution Lower Limb Edema Present Left Calf (cm) 41 Left Ankle (cm) 24 WC - Nurse 2 - General Ulcer CM Notes Start: 09/10/20 10:22 Freq: Status: Active Protocol: Activity Type Activity Date Activity User E-Sign Co-Sign Detail Recorded Client Recorded Date Recorded By Document 09/10/20 10:52 [id number] 09/10/20 10:57 JF Document 09/17/20 10:35 JF [id number] 09/17/20 10:41 JF Document 09/24/20 10:06 JF [id number] 09/24/20 10:09 JF Document 10/01/20 10:40 PL [id number] 10/01/20 10:41 PL 09/10/20 09/17/20 09/24/20 10:52 10:35 10:06 Wound Center Nurse 2 14-left 4th toe ulcer -Time 10:53 -Correct Patient Yes No -Correct Side, Site, Position Yes No -Correct Procedure Yes No -Procedure Performed Yes No -Type of Procedure Debridement -Clinical Debridement Subcutaneous -Tissue Removed Subcutaneous -Post Debridement (cm) - Length 0.3 0 -Post Debridement (cm) - Width 0.3 0 -Post Debridement (cm) - Depth 0.1 0 -Total Square (Post) (cm) 0.09 0 -Area of Debridement (cm) - Length 0.3 0 -Area of Debridement (cm) - Width 0.3 0 -Total Square (Area) (cm) 0.09 0 -Tunneling No -Undermining/Tunneling No -Circular Undermining No -Wound/Ulcer Outcome Not Healed Healed- Epithelialized -Ulcer Cleansing Rinsed/ Irrigated with Saline -Foul Odor after Cleansing No -Bioengineered Tissue No -Bleeding Controlled with Pressure -Type of Offloading Surgical Shoe -Debridement - Subq, 1st 20sq cm No #9 left Grt Toe Plantar Cluster -Time 10:52 10:36 10:06 -Correct Patient Yes Yes Yes -Correct Side, Site, Position Yes Yes Yes -Correct Procedure Yes Yes Yes -Procedure Performed Yes Yes Yes -Type of Procedure Debridement Debridement Debridement -Clinical Debridement Subcutaneous Subcutaneous Subcutaneous -Tissue Removed Subcutaneous Subcutaneous Subcutaneous -Post Debridement (cm) - Length 0.9 1.5 0.9 -Post Debridement (cm) - Width 1.6 0.4 0.5 -Post Debridement (cm) - Depth 0.2 0.1 0.2 -Total Square (Post) (cm) 1.44 0.60 0.45 -Area of Debridement (cm) - Length 0.9 1.5 0.9 -Area of Debridement (cm) - Width 1.6 0.4 0.5 -Total Square (Area) (cm) 1.44 0.60 0.45 -Tunneling No No No -Undermining/Tunneling No No No -Circular Undermining No No No -Wound/Ulcer Outcome Not Healed Not Healed Not Healed -Ulcer Cleansing Rinsed/ Rinsed/ Rinsed/ Irrigated with Irrigated with Irrigated with Saline Saline Saline -Foul Odor after Cleansing No No No -Bioengineered Tissue No No No -Bleeding Controlled with Pressure Pressure Pressure -Offloading Yes Yes Yes -Type of Offloading Surgical Shoe Surgical Shoe Surgical Shoe -Treatment Response Procedure Procedure Procedure Tolerated Well Tolerated Well Tolerated Well -Debridement - Subq, 20sq cm Yes Yes Yes Pain Scale: 0-10 Numeric Is Patient Pain Free? Yes Yes Yes 10/01/20 10:40 Wound Center Nurse 2 14-left 4th toe ulcer -Time -Correct Patient -Correct Side, Site, Position -Correct Procedure -Procedure Performed -Type of Procedure -Clinical Debridement -Tissue Removed -Post Debridement (cm) - Length -Post Debridement (cm) - Width -Post Debridement (cm) - Depth -Total Square (Post) (cm) -Area of Debridement (cm) - Length -Area of Debridement (cm) - Width -Total Square (Area) (cm) -Tunneling -Undermining/Tunneling -Circular Undermining -Wound/Ulcer Outcome -Ulcer Cleansing -Foul Odor after Cleansing -Bioengineered Tissue -Bleeding Controlled with -Type of Offloading -Debridement - Subq, 1st 20sq cm #9 left Grt Toe Plantar Cluster -Time 10:34 -Correct Patient Yes -Correct Side, Site, Position Yes -Correct Procedure Yes -Procedure Performed Yes -Type of Procedure Debridement -Clinical Debridement Subcutaneous -Tissue Removed Subcutaneous -Post Debridement (cm) - Length 0.6 -Post Debridement (cm) - Width 0.6 -Post Debridement (cm) - Depth 0.1 -Total Square (Post) (cm) 0.36 -Area of Debridement (cm) - Length 0.6 -Area of Debridement (cm) - Width 0.6 -Total Square (Area) (cm) 0.36 -Tunneling No -Undermining/Tunneling No -Circular Undermining No -Wound/Ulcer Outcome Not Healed -Ulcer Cleansing Rinsed/ Irrigated with Saline -Foul Odor after Cleansing No -Bioengineered Tissue No -Bleeding Controlled with -Offloading -Type of Offloading -Treatment Response -Debridement - Subq, 1st 20sq cm Yes Pain Scale: 0-10 Numeric Is Patient Pain Free? Yes - Nurse 3 - General Ulcer D/C NN Start: 09/10/20 10:22 Freq: Status: Active Protocol: Activity Type Activity Date Activity User E-Sign Co-Sign Detail Recorded Client Recorded Date Recorded By Document 09/17/20 10:53 DL [id number] 09/17/20 10:55 DL Document 09/24/20 10:21 RB [id number] 09/24/20 10:22 RB 09/17/20 09/24/20 10:53 10:21 Wound Care Nurse 3 #9 left Grt Toe Plantar Cluster -Ulcer Cleansing Rinsed/ Rinsed/ Irrigated with Irrigated with Saline Saline -Foul Odor after Cleansing No -Primary Dressing Applied NonAdherent NonAdherent Contact Layer Contact Layer -Other Dressing hydrogel hydrogel -Primary Dressing Covered/Secured with Dry Gauze & Dry Gauze,Dry Roll Gauze, Gauze & Roll Secured with Gauze,Secured Tape with Tape Left -Other tubigrip single layer tubigrip Treatment Response Procedure Procedure Tolerated Well Tolerated Well Pain Scale: 0-10 Numeric Is Patient Pain Free? Yes Yes WC - Visit Discharge Discharge Condition Stable Stable Ambulatory Status Ambulatory Ambulatory Transportation Private Auto Private Auto Medication Reconcilliation completed & No provided to patient/care provider Clinical Summary of Care Provided Yes Wound debrided: plantar left foot Wound Grade/Stage: 1 Type of Debridement: Excisional debridement Anesthesia Used: 4% Lidocaine Solution Depth: in the subcutaneous layer Percentage of wound debrided: 100 Instrument Used: #15 blade Tissue Removed: fibrous, devitalized subcutaneous, biofilm, slough Severity: Fat Layer Exposed Amount of bleeding with debridement: Mild Bleeding Controlled with: Pressure Patient tolerated procedure: Patient tolerated procedure well Assessment/Plan Assessment/Plan (1) Ulcer of left foot with fat layer exposed: CODE(S): L97.522 - Non-pressure chronic ulcer of other part of left foot with fat layer exposed (2) Type 2 diabetes mellitus with diabetic polyneuropathy: CODE(S): E11.42 - Type 2 diabetes mellitus with diabetic polyneuropathy (3) Venous insufficiency: CODE(S): I87.2 - Venous insufficiency (chronic) (peripheral) (4) Leg edema: CODE(S): R60.0 - Localized edema PLAN: I reviewed and discussed his case. The etiology of his wound development and comprehensive treatment plan was discussed. Debridement was performed today as noted in the clinical nursing documentation / panel. It is noted his fourth toe ulcer has healed. It is noted the right foot ulcer has healed and also all of the lesser toe ulcers on the left foot. He has changed the dressing with Adaptic and hydrogel. He had one prior epifix application with improvement. He was reassured no signs of local infection are noted. To control edema with tubigrip and limb elevation. He also understands it is not appropriate to force shoe gear use when he has increased edema. Previous noninvasive vascular lower extremity studies were reviewed and he has triphasic waveforms at bilateral ankles (04/02/20). To use bilateral Tubigrip's. This is for edema management. Venous studies from 12-05-2019 demonstrate bilateral greater saphenous incompetence consistent with venous insufficiency. To continue with surgical shoe use and heel weightbearing keep pressure off of his ulcer sites. Additional Plastizote liner with ulcer offloading pocket was fabricated previously. This was not present today and he was advised to resume use. To avoid pool swimming until the ulcer has healed. I answered all his questions. Note: [employer] speech recognition parking meter attendant software was used to create portions of this document. Sound-alike and misspelled words, as well as other parking meter attendant errors may be contained in the documentation
== END 2020-10-06 23:59 ==
LOC: WC 10:00
PROVIDERS: PCP Student in an Organized Health Care Education/Training Program; Visit Provider Podiatrist
DX: E11.621 Type 2 diabetes mellitus with foot ulcer (principal); I87.2 Venous insufficiency (chronic) (peripheral); L97.522 Non-pressure chronic ulcer of other part of left foot with fat layer exposed; R60.0 Localized edema; E11.42 Type 2 diabetes mellitus with diabetic polyneuropathy
CPT/HCPCS: 11042

== ENCOUNTER 2020-10-22 10:15 | Outpatient (RCR) | payer OTHER, SELFPAY ==
[2020-10-07 00:31] VITALS: BP 155/78; PULSE 92; RESP 18; TEMP 36.7
[2020-10-08 10:23] VITALS: BP 156/80; PULSE 93; RESP 18; TEMP 36.8; BMI 37.4
--- NOTE | 2020-10-08 11:20 | PN.PCM_ITS ---
History of Present Illness Date of Service: 10/08/20 Chief Complaint: left foot ulcers History of Wound: This 55-year-old male presents to the wound healing center for management of bilateral forefoot ulcers after developing acute onset of very large blisters. The onset of his injury was 07-11-20. He denies fever, chill, nausea, vomiting. He is wearing offloading surgical shoes. He change his dressing with hydrogel. In general, he has a history of delayed ulcer healing. He denies redness or odor. He wears [employer] shoes. He relates he tries to wear crocs at home but this caused ulcers on several other prior incidences. Progress of Wound: Improving Objective Data Objective Data Vital Signs: Vital Signs Temp Pulse Resp BP 98.2 F 93 18 156/80 H 10/08/20 10:23 10/08/20 10:23 10/08/20 10:23 10/08/20 10:23 Weight: 132.15 kg Body Mass Index (BMI) 37.4 Physical Exam Const alert and oriented x3 General Appearance: cooperative HEENT normocephalic Extremity Extremity Narrative: No calf tenderness Diminished pulses Muscle wasting noted General Extremity: edema and no tenderness to palpation of joints or extremities; Negative for cyanosis Skin Skin Narrative: no purulence, no streaking, no odor, no infection General Skin Exam: Negative for erythema Neuro Neuro Narrative: lack of normal epicritic sensation via light touch is consistent with neuropathy status Psych cooperative and affect normal Debridement Note Debridement Note Post-Debridement Measurements and Additional Note: Post-Debridement Measurements/Treatment - Nurse 1 - General Ulcer Assessment Start: 10/08/20 10:23 Freq: Status: Active Protocol: LC.EDITH Activity Type Activity Date Activity User E-Sign Co-Sign Detail Recorded Client Recorded Date Recorded By Document 10/08/20 10:23 [id number] 10/08/20 10:26 RB 10/08/20 10:23 - Today's Visit Information Type of service Follow-up Visit (Physician/FILE KEEPER ) Arrival Mode Ambulatory Transfer Assistance None Patient Identification Verified (Name & Yes ) Patient Requires Transmission-Based No Precautions Height and Weight Body Mass Index (BMI) 37.4 BMI Classification Obese Vital Signs Temperature (97.8 F-99.1 F) 98.2 F Temperature Source Temporal Pulse Rate (60-100) 93 Pulse Location Monitor Respiratory Rate (12-18) 18 Respiratory rate source Observation Blood Pressure (90/60-120/80) 156/80 H Blood Pressure Mean (mm Hg) 105 Source Monitor Position Semi-Fowlers Blood Pressure Location Left Arm History Since Last Visit- (Skip if this is Patient's initial visit) Have you changed medications since your No last visit? Any new allergies or adverse reactions No Had a fall/change in ADL's that may No increase risk of falls Signs or symptoms of abuse and/or No neglect since last visit Have you been in the hospital since your No last visit? Has dressing in place as prescribed Yes Has compression in place as prescribed No Has offloadiing in place as prescribed No Experienced any changes in pain level or No management Pain Scale: 0-10 Numeric Is Patient Pain Free? Yes - Nurse 1 - General Ulcer Measurement Start: 10/08/20 10:23 Freq: Status: Active Protocol: Activity Type Activity Date Activity User E-Sign Co-Sign Detail Recorded Client Recorded Date Recorded By Document 10/08/20 10:23 SASHA [id number] 10/08/20 10:26 SASHA 10/08/20 10:23 Wound Center Nurse 1 #9 left Grt Toe Plantar Cluster -Combined with other wound No -Current Size (cm) - Length 0.1 -Current Size (cm) - Width 0.1 -Current Size (cm) - Depth 0.1 -Total Square Cm 0.01 -Epithelialization Large 67-100% -Tunneling No -Undermining/Tunneling No -Circular Undermining No -Exudate Amt None Present -Wound Margin Flat & Intact -Granulation Amt Large (67-100%) -Granulation Quality [place] -Slough/Fibrin No -Necrosis Amt None Present (0 %) -Structure Exposed N/A -Texture (Susana-wound Skin Appearance) Assessed -Moisture (Susana-wound Skin Appearance) Assessed -Color (Susana-wound Skin Appearance) Assessed -Temperature (Susana-wound Skin No Abnormality Appearance) (Pt Warm) -Tenderness on Palpation (Susana-wound No Skin Appearance) -Ulcer Cleansing Rinsed/ Irrigated with Saline -Foul Odor after Cleansing No -Anesthetic Used 4% Lidocaine Solution Left Calf (cm) 41.5 Left Ankle (cm) 26 LC - Nurse 2 - General Ulcer CM Notes Start: 10/08/20 10:23 Freq: Status: Active Protocol: Activity Type Activity Date Activity User E-Sign Co-Sign Detail Recorded Client Recorded Date Recorded By Document 10/08/20 10:55 [id number] 10/08/20 10:58 10/08/20 10:55 Wound Center Nurse 2 #9 left Grt Toe Plantar Cluster -Time 10:56 -Correct Patient Yes -Correct Side, Site, Position Yes -Correct Procedure Yes -Procedure Performed Yes -Type of Procedure Debridement -Clinical Debridement Subcutaneous -Tissue Removed Subcutaneous -Post Debridement (cm) - Length 0.1 -Post Debridement (cm) - Width 0.2 -Post Debridement (cm) - Depth 0.1 -Total Square (Post) (cm) 0.02 -Area of Debridement (cm) - Length 0.1 -Area of Debridement (cm) - Width 0.2 -Total Square (Area) (cm) 0.02 -Tunneling No -Undermining/Tunneling No -Circular Undermining No -Wound/Ulcer Outcome Not Healed -Ulcer Cleansing Rinsed/ Irrigated with Saline -Foul Odor after Cleansing No -Bioengineered Tissue No -Bleeding Controlled with Pressure -Offloading Yes -Type of Offloading Surgical Shoe -Treatment Response Procedure Tolerated Well -Debridement - Subq, 1st 20sq cm Yes Pain Scale: 0-10 Numeric Is Patient Pain Free? Yes - Nurse 3 - General Ulcer D/C NN Start: 10/08/20 10:23 Freq: Status: Active Protocol: Activity Type Activity Date Activity User E-Sign Co-Sign Detail Recorded Client Recorded Date Recorded By Document 10/08/20 11:04 [email or web address] [id number] 10/08/20 11:05 10/08/20 11:04 Wound Care Nurse 3 #9 left Grt Toe Plantar Cluster -Ulcer Cleansing Rinsed/ Irrigated with Saline -Foul Odor after Cleansing No -Primary Dressing Applied C Hydrogel ($) -Primary Dressing Covered/Secured with Dry Gauze, Secured with Tape Pain Scale: 0-10 Numeric Is Patient Pain Free? Yes - Visit Discharge Discharge Condition Stable Ambulatory Status Ambulatory Transportation Private Auto Medication Reconcilliation completed & Yes provided to patient/care provider Clinical Summary of Care Provided Yes Wound debrided: plantar medial foot Wound Grade/Stage: 1 Type of Debridement: Excisional debridement Anesthesia Used: 4% Lidocaine Solution Depth: in the subcutaneous layer Percentage of wound debrided: 100 Instrument Used: #15 blade Tissue Removed: fibrous, devitalized subcutaneous, biofilm, slough Severity: Fat Layer Exposed Amount of bleeding with debridement: Mild Bleeding Controlled with: Pressure Patient tolerated procedure: Patient tolerated procedure well Assessment/Plan Assessment/Plan (1) Ulcer of right foot with fat layer exposed: CODE(S): L97.512 - Non-pressure chronic ulcer of other part of right foot with fat layer exposed (2) Type 2 diabetes mellitus with diabetic polyneuropathy: CODE(S): E11.42 - Type 2 diabetes mellitus with diabetic polyneuropathy PLAN: I reviewed and discussed his case. The etiology of his wound development and comprehensive treatment plan was discussed. Debridement was performed today as noted in the clinical nursing documentation / panel. He has changed the dressing with hydrogel. He had one prior epifix application with improvement. He was reassured no signs of local infection are noted. To control edema with tubigrip and limb elevation. He also understands it is not appropriate to force shoe gear use when he has increased edema. Previous noninvasive vascular lower extremity studies were reviewed and he has triphasic waveforms at bilateral ankles (04/02/20). To use bilateral Tubigrip's. This is for edema management. Venous studies from 12-05-2019 demonstrate bilateral greater saphenous incompetence consistent with venous insufficiency. To continue with surgical shoe use and heel weightbearing keep pressure off of his ulcer sites. Additional Plastizote liner with ulcer offloading pocket was fabricated previously. This was not present today and he was advised to resume use. To avoid pool swimming until the ulcer has healed. He is in the process of finding updated shoes and I recommended he obtains a pair of shoes that fits properly and with, depth, and length. I recommend he gets rid of his crocs he has these will never be appropriate. I recommended a house sandal or shoe that is wide enough that will also not contribute to skin breakdown. I answered all his questions. Return to clinic in 2 weeks. Note: [employer] speech recognition demonstrator knitting software was used to create portions of this document. Sound-alike and misspelled words, as well as other demonstrator knitting errors may be contained in the documentation
[2020-10-22 10:25] VITALS: BP 142/74; PULSE 90; RESP 18; TEMP 36.1; BMI 37.4
--- NOTE | 2020-10-22 12:00 | PCM.WC.PN ---
History of Present Illness Date of Service: 10/22/20 Chief Complaint: left foot ulcers History of Wound: This 55-year-old male presents to the wound healing center for management of bilateral forefoot ulcers after developing acute onset of very large blisters. The onset of his injury was 07-11-20. He denies fever, chill, nausea, vomiting. He is wearing offloading surgical shoes. He change his dressing with hydrogel. In general, he has a history of delayed ulcer healing. He denies redness or odor. He denies drainage the ulcer is healed. Progress of Wound: Healed Objective Data Objective Data Vital Signs: Vital Signs Temp Pulse Resp BP 97 F L 90 18 142/74 H 10/22/20 10:25 10/22/20 10:25 10/22/20 10:10/22/20 10:25 Oxygen Delivery Method Room Air Weight: 132.15 kg Body Mass Index (BMI) 37.4 Physical Exam Const alert and oriented x3 General Appearance: cooperative HEENT normocephalic Extremity General Extremity: edema and no tenderness to palpation of joints or extremities; Negative for cyanosis Skin General Skin Exam: Negative for erythema Psych cooperative and affect normal Assessment/Plan Assessment/Plan (1) Ulcer of right foot with fat layer exposed: CODE(S): L97.512 - Non-pressure chronic ulcer of other part of right foot with fat layer exposed (2) Type 2 diabetes mellitus with diabetic polyneuropathy: CODE(S): E11.42 - Type 2 diabetes mellitus with diabetic polyneuropathy PLAN: I reviewed and discussed his case. The etiology of his wound development and comprehensive treatment plan was discussed. His ulcer has healed and debridement was not performed. He was reassured no signs of local infection are noted. To control edema with tubigrip and limb elevation. He also understands it is not appropriate to force shoe gear use when he has increased edema. Previous noninvasive vascular lower extremity studies were reviewed and he has triphasic waveforms at bilateral ankles (04/02/20). To use bilateral Tubigrip's. This is for edema management. Venous studies from 12-05-2019 demonstrate bilateral greater saphenous incompetence consistent with venous insufficiency. To transition into an extra-depth shoe over the next 1 to 2 weeks. This will allow skin remodeling. Return to work note provided for November 03, 2020 as tolerated. I answered all his questions. He is discharged from the wound healing center at this time. To follow-up with the foot and ankle Center for healed ulcer check and palliative nail care assistance within the next 1 month or call sooner if the ulcer reopens. Note: [employer] speech recognition clinical nurse occupational medicine software was used to create portions of this document. Sound-alike and misspelled words, as well as other clinical nurse occupational medicine errors may be contained in the documentation The medical decision making level is low. There is noted low risk of morbidity after considering this treatment plan and diagnostic data. The problems addressed require a low medical decision making level which includes two or more minor problems, a stable chronic illness, or an acute uncomplicated illness or injury.
== END 2020-10-22 11:06 | disposition home or self-care (01) ==
LOC: WC 10:15
PROVIDERS: PCP Student in an Organized Health Care Education/Training Program; Visit Provider Podiatrist
DX: L97.512 Non-pressure chronic ulcer of other part of right foot with fat layer exposed (principal); E11.621 Type 2 diabetes mellitus with foot ulcer; E11.42 Type 2 diabetes mellitus with diabetic polyneuropathy; R60.9 Edema, unspecified
CPT/HCPCS: 11042; 99213; G0463

== ENCOUNTER 2023-07-07 10:15 | Outpatient (RCR) | payer OTHER, SELFPAY ==
[2023-06-09 09:07] VITALS: BP 155/83; PULSE 101; RESP 18; BMI 35.2
--- NOTE | 2023-06-09 09:09 | PCM.WC.HP ---
History of Present Illness Date of Service: 06/09/23 Chief Complaint: left foot ulcers History of Wound: This 57-year-old male presents to the wound care center as referral by his hand flatwork finisher Dr. Enciso for plantar right foot ulceration. He has PMHx of bilateral foot wounds, partial fifth ray resection right foot, DM type II with peripheral polyneuropathy, cavovarus deformity right foot, chronic venous insufficiency, lower extremity edema, HTN, obesity. He states he did receive new shoes for Rohith and 2 days later on May 04, 2023 states that he had new wound development to the plantar aspect of the fifth metatarsal base of the right foot. He states he feels that shoes were too tight. He does have peripheral polyneuropathy and did not notice they were too tight until wound developed. He did go to urgent care and received 7-day course of doxycycline. He did finish antibiotic course to completion and followed up with his hand flatwork finisher in office and underwent debridement with Betadine to the wound margin and Aquacel to the wound base. He was dressed and dry sterile dressing and offloading in [facility] and has remained nonweightbearing with the assistance of crutches. At this time he was urged to go to hospital for further treatment given history of infection and amputation however he did refuse at this time and requested evaluation at the wound care center. He was thus started on Augmentin and Cipro and is currently finishing oral antibiotic course. He states he is continue to remain nonweightbearing and changing dressings daily. He currently denies N/V/F/chills. Denies further complaints. [facility] [place] Medical History (Updated 06/09/23 @ 12:[address] Alpesh Zeng, LISA) Arthritis Chronic neck and back pain Diabetes Diarrhea Hay fever History of seizures as a child Hypertension Hypertension Incisional hernia, with obstruction, without gangrene Knee pain Limb weakness Obesity Type II diabetes mellitus unexplained bruising Home Medications insulin detemir U-100 100 unit/mL (3 mL) subcutaneous pen 32 units subcut QHS 10/01/14 [History Last Taken Unknown] insulin lispro 100 unit/mL subcutaneous pen 8 unit SQ PRN PRN DIABETES 10/01/14 [History Last Taken Unknown] nifedipine 60 mg tablet,extended release 90 mg PO DAILY 10/01/14 [History Last Taken 05/06/17 07:00] ramipril 10 mg capsule 10 mg PO DAILY 10/01/14 [History Last Taken 05/06/17 07:00] ascorbic acid (vitamin C) 500 mg tablet,extended release 500 mg PO DAILY 04/29/17 [History Last Taken Unknown] aspirin 81 mg tablet,delayed release 81 mg PO DAILY 04/29/17 [History Last Taken Unknown] atorvastatin 10 mg tablet 10 mg PO DAILY 04/29/17 [History Last Taken Unknown] diphenhydramine HCl 25 mg tablet 25 mg PO PRN PRN ALLERGY 04/29/17 [History Last Taken Unknown] dulaglutide 0.75 mg/0.5 mL subcutaneous pen injector 0.75 mg SQ ENCINAS 04/29/17 [History Last Taken Unknown] multivitamin 1 ea PO DAILY 04/29/17 [History Last Taken Unknown] Allergy/AdvReac Type Severity Reaction Status Date / Time acetaminophen [From Percocet] AdvReac Nausea Verified 07/30/20 09:39 oxycodone [From Percocet] AdvReac Nausea Verified 07/30/20 09:39 Surgical History H/O ventral hernia repair S/P ORIF (open reduction internal fixation) fracture Social History (Updated 01/01/19 @ 09:09 by Samuel MURPHY PA) Smoking Status: Never smoker alcohol intake: current alcohol intake frequency: holidays/special occasions only ROS Constitutional Constitutional: Denies anorexia, chills or fever(s) Eyes Eyes: Denies blurry vision, change in vision or double vision ENT HEENT: Denies dysphagia, nasal congestion, nasal discharge or sore throat Cardiovascular Cardiovascular: Denies chest pain, claudication or palpitations Respiratory/Chest Respiratory/Chest: Denies cough, shortness of breath at rest or wheezing Gastrointestinal Gastrointestinal: Denies abdominal pain, constipation, diarrhea, nausea or vomiting Genitourinary Genitourinary: Denies dysuria, hematuria, urinary frequency or urinary urgency Musculoskeletal Musculoskeletal: Denies joint pain, joint stiffness or joint swelling Integumentary Integumentary: Denies lesions, pruritus or rash Neurologic Neurologic: Denies dizziness, numbness or seizures Psychiatric Psychiatric: Denies depression Endocrine Endocrinology: Denies cold intolerance or heat intolerance Hematologic/Lymphatic Hematologic/Lymphatic: Denies easy bleeding or easy bruising Physical Exam Const alert, oriented x3, no apparent distress and well nourished General Appearance: cooperative HEENT normocephalic Eyes General Eye: normal appearance of both eyes Neck General: normal visual inspection Lymph Lymphatic: no lymphadenopathy noted and no lymphedema noted Resp normal respiratory effort Cardio regular rate and regular rhythm Extremity normal capillary refill, no joint enlargement, no calf tenderness and no pedal edema Extremity Narrative: DP and PT pulses palpable. CFT less than 4 seconds to the digits. There is mild nonpitting edema about foot and ankle. Dermatological: There is a ulceration noted to the plantar aspect of the right foot subfifth metatarsal base/styloid process secondary to cavovarus deformity and continued pressure. Ulceration demonstrates fibrogranular base with serosanguineous drainage and surrounding hyperkeratosis secondary to previous blister. No purulent drainage, no erythema, no malodor, no lymphangitic streaking, no palpable fluctuance/bogginess noted, no visible abscess formation. Musculoskeletal: Muscle strength 5 of 5 age-appropriate. Prominent styloid process fifth metatarsal base with cavovarus deformity. Partial fifth Ray resection right foot. There is decreased range of motion of the ankle joint dorsiflexion decreased range of motion of the first metatarsophalangeal joint without pain or crepitus. Skin no rashes or lesions noted, skin turgor normal and no jaundice Neuro moves all extremities Debridement Note Debridement Note Wound debrided: Subfifth metatarsal base right foot Laterality: Right Wound Grade/Stage: Francois stage I Type of Debridement: Excisional debridement Anesthesia Used: 5% Lidocaine Gel Depth: Down to and including healthy tissue and in the subcutaneous layer Percentage of wound debrided: 100 Instrument Used: 5mm curette and #15 blade Tissue Removed: Fibrous, devitalized subcutaneous, biofilm, slough Severity: Fat Layer Exposed Amount of bleeding with debridement: Mild Bleeding Controlled with: Compression and gauze Patient tolerated procedure: Patient tolerated procedure well Assessment/Plan Assessment/Plan (1) Ulcer of right foot with fat layer exposed: CODE(S): L97.512 - Non-pressure chronic ulcer of other part of right foot with fat layer exposed (2) Type 2 diabetes mellitus with diabetic polyneuropathy: CODE(S): E11.42 - Type 2 diabetes mellitus with diabetic polyneuropathy (3) Type 2 diabetes mellitus with foot ulcer: CODE(S): E11.621 - Type 2 diabetes mellitus with foot ulcer; L97.509 - Non-pressure chronic ulcer of other part of unspecified foot with unspecified severity (4) Venous insufficiency: CODE(S): I87.2 - Venous insufficiency (chronic) (peripheral) (5) Leg edema: CODE(S): R60.0 - Localized edema (6) Other specified peripheral vascular diseases: CODE(S): I73.89 - Other specified peripheral vascular diseases (7) Obesity: CODE(S): E66.9 - Obesity, unspecified QUALIFIERS: Obesity severity: morbid Obesity type: due to excess calories Qualified Code(s): E66.01 - Morbid (severe) obesity due to excess calories PLAN: Plan Patient seen and evaluated Ulceration to the plantar aspect of the right foot underwent debridement as noted in clinical panel above. Ulceration measures 3.2 cm x 3.0 cm x 0.2 cm. Padma applied to the wound base and dressed with dry sterile dressing. He was placed back into his CAM boot with plantar offloading padding and instructed to remain nonweightbearing to the right foot with the assistance of crutches. He is to change dressing daily. Discussed seeking approval for advanced wound care product for application at next visit. Will plan for updated LEAS, radiographs of the right foot, and labs including HgbA1c to be obtained for next visit. Previous A1c on record from 12/04/2021 was 6.2%. Discussed the importance of continued offloading in CAM boot with plantar offloading padding and to remain nonweightbearing to the right lower extremity with the assistance of crutches to aid in wound healing. Discussed that his foot type with prominent fifth metatarsal base secondary to his foot deformity will continue to create problems with wounds and healing and that he should always remain in diabetic shoe gear with protective offloading inserts. Discussed proper diabetic diet to aid in continued wound healing. Stressed importance of maintaining tight glycemic control to aid in wound healing. Discussed importance of daily foot checks and to never walk barefoot. Discussed socks include barefoot. Discussed adequate protein intake for continued wound healing. Toni supplementation also recommended. Discussed signs and symptoms of infection. Discussed if he notices redness about the wound that spreads on top of the foot or up the leg, if he has any purulent drainage from the wound site, has increasing foul odor to the wound, or if he experiences fever greater than 101 accompanied by nausea, vomiting, fever, chills these are signs of a progressing infection and he should report to the ED for IV antibiotics. He voices understanding of this. The following work up and care recommendations were made: Dressing: Padma dry sterile dressing, change daily. Wash: Soap and water Tissue growth optimization: Padma Offload: CAM boot to the right foot with plantar offloading padding. He is to remain nonweightbearing with the assistance of crutches to the right foot Vascular: History of vascular disease. DP and PT pulses were palpable with adequate capillary fill time. Do not feel vascular status is impacting healing at this time. Edema: Recommended Tubigrip compression and following wound healing compression stockings 20 to 30 mmHg. Infection: No signs of infection. Patient currently finishing oral antibiotic course Pain: No pain secondary to diabetic peripheral polyneuropathy. May take [id number] Tylenol Extra Strength as needed for discomfort Host factors: DM type II with peripheral polyneuropathy, cavus foot, excessive pressure, obesity I answered all the patient's questions. To return to the wound healing center in 1 week or call sooner if the patient has any questions or concerns.
--- NOTE | 2023-06-14 12:51 | ART_ITS ---
Reason For Study: PVD Procedure A bilateral lower extremity continuous wave Doppler with analog waveform analysis,segmental pressures,and ankle brachial indexes without exercise. Left Segmental Pressures Left brachial= 159mmHg. Left posterior tibial artery = 78mmHg. Left dorsalis pedis artery = 131mmHg. Left digit = 74 mmHg. The left posterior tibial artery waveforms are monophasic. The left dorsalis pedis waveforms are biphasic. Right Segmental Pressures Right brachial= 153mmHg. The right dorsalis pedis waveforms are triphasic. The right posterior tibial artery waveforms are triphasic. Right digit = 75 mmHg. PT and DP are noncompressible. Indices PT and DP are noncompressible. The right digital-brachial index is .47. Calf is noncompressible. The left ankle brachial index by the posterior tibial artery is .49. The left ankle brachial index by the dorsalis pedis is .82. The left digital-brachial index is .74. VL/Lower Ext Art Exam w/o Exercis Interpretation Summary Triphasic waveforms are noted at ankle level on the right. Monophasic and bipha sic Doppler waveforms are noted at ankle level on the left. Pulse-volume recordings are diminished at ankle and digital levels on the left. The resting right ankle-brachial index could not be determi danielle due to the non- compressibility of the vasculature at ankle level on the right. The resting lef t ankle-brachial index is moderately diminished. Digital-brachial indices are moderately diminis hed bilaterally. There is evidence of moderate arterial occlusive disease in the lower extremiti es bilaterally. Ordering Physician: Alpesh Zeng Performed By: Barrie Lozano RVT
--- NOTE | 2023-06-14 12:51 | VDLE_ITS ---
Reason For Study: wound, edema RIGHT LEFT CFV is compressible, spontaneous, phasic, CFV is compressible, spontaneous, phasic, competent and demonstrates normal competent, and demonstrates normal augmentation. augmentation. FV is compressible, spontaneous, phasic, FV is compressible, spontaneous, phasic, competent and demonstrates normal competent and demonstrates normal augmentation. augmentation. POP V is compressible, spontaneous, phasic, POP V is compressible, spontaneous, phasic, competent and demonstrates normal competent and demonstrates normal augmentation. augmentation. T/P Trunk is compressible. T/P Trunk is compressible. PTV is compressible. PTV is compressible. RT PerV is compressible. LT PerV is compressible. SFJ is competent and measures .64 cm. SFJ is competent and measures .69 cm. GSV proximal thigh measures .32 x .34 cm. SSV at junction is competent and measures .16 GSV at knee measures .31 x .32 cm. x .18 cm. GSV INCOMPETENT throughout for greater than GSV proximal thigh measures .44 x .44 cm. 0.5 seconds. GSV at knee measures .5 x .55 cm. ASV mid thigh is INCOMPETENT for greater than GSV INCOMPETENT throughout for greater than 0.5 seconds and measures .27 cm. 0.5 seconds. SSV at junction is competent and measures .47 ASV mid calf is INCOMPETENT for greater than x .56 cm. 0.5 seconds and measures .26 x .27 cm. Procedure This is a venous duplex using B-mode, color flow and spectral Doppler. Exam performed in department. The exam was diagnostic. VL/Venous Duplex US - Raymond Extrem Interpretation Summary Deep veins of the lower extremities are bilaterally patent and compressible seg mentally. There is no evidence of deep vein thrombosis on either side. Valvular competence appears in tact within the proximal deep venous systems bilaterally. The great saphenous veins appear bila terally patent and compressible segmentally. Sapheno-femoral junctions are bilaterally competent . Segmental valvular incompetence is noted within the great saphenous veins bilaterally. Small saphe nous veins are patent and competent bilaterally. The accessory saphenous vein in the right mid-thigh is incompetent. The accessory saphenous vein in the left mid-calf is incompetent. Ordering Physician: Alpesh Zeng Performed By: Barrie Lozano RVT
--- NOTE | 2023-06-14 14:06 | RAD_ITS ---
STUDY: X-RAY - RIGHT FOOT CLINICAL: Male, 57 years old. L97.512 TECHNIQUE: 3 view(s) of the foot. COMPARISON: 12/03/2019. FINDINGS: Minimal enthesophytosis at the Achilles tendon insertion site. Otherwise normal talus, calcaneus, and tarsal bones. Normal visualized subtalar, talonavicular, calcaneocuboid, tarsal and tarsometatarsal articulations. Status post amputation of the fifth metatarsal shaft from the proximal level and fifth toe. Mild deformity of the fourth metatarsal shaft, likely sequela of old trauma. Remainder of the metatarsal bones are unremarkable. There is degenerative arthrosis of the metatarsophalangeal joint of the hallux . Normal tibial and fibular sesamoid bones. There is mild degenerative arthrosis of the interphalangeal joint of the great toe. Normal phalanges of the great toe. Normal second through fourth metatarsophalangeal joints. Mild narrowing of the interphalangeal joints otherwise normal phalanges of the lesser toes. The soft tissue structures are unremarkable. There is no demonstrated fracture. RAD/Foot min 3 Views IMPRESSION: Status post amputation of the fifth toe from the level of the proximal metatarsal bone. Underlying osteoarthritis with no acute fracture or subluxation. Electronically Signed: Tarsha Wade MD at 0:51 EST ,
[2023-06-16 10:33] VITALS: BP 133/68; PULSE 106; RESP 16; TEMP 36.4; BMI 35.2
--- NOTE | 2023-06-16 13:09 | PN.PCM_ITS ---
History of Present Illness Date of Service: 06/16/23 Chief Complaint: left foot ulcers History of Wound: This 57-year-old male presents to the wound care center as referral by his mix house tender Dr. Enciso for plantar right foot ulceration. He has PMHx of bilateral foot wounds, partial fifth ray resection right foot, DM type II with peripheral polyneuropathy, cavovarus deformity right foot, chronic venous insufficiency, lower extremity edema, HTN, obesity. He states he did receive new shoes for Rohith and 2 days later on May 04, 2023 states that he had new wound development to the plantar aspect of the fifth metatarsal base of the right foot. He states he feels that shoes were too tight. He does have peripheral polyneuropathy and did not notice they were too tight until wound developed. He did go to urgent care and received 7-day course of doxycycline. He did finish antibiotic course to completion and followed up with his mix house tender in office and underwent debridement with Betadine to the wound margin and Aquacel to the wound base. He was dressed and dry sterile dressing and offloading in CAM boot and has remained nonweightbearing with the assistance of crutches. At this time he was urged to go to hospital for further treatment given history of infection and amputation however he did refuse at this time and requested evaluation at the wound care center. He was thus started on Augmentin and Cipro and is currently finishing oral antibiotic course. He states he is c ontinue to remain nonweightbearing and changing dressings daily. He currently denies N/V/F/chills. Denies further complaints. Subjective Subjective Patient is a 57-year-old male who follows to the wound care center today for continued care of plantar subfifth metatarsal ulceration of the right foot. He continues to offloading cam boot and has attempted to remain nonweightbearing with crutches. He does state difficulty with a nonweightbearing status at all times. He has continued to change dressings daily. Denies constitutional symptoms. Denies further complaints. Objective Data Objective Data Vital Signs: Vital Signs Temp Pulse Resp BP O2 Del Method 97.6 F L 106 H 16 133/68 H Room Air 06/16/23 10:33 06/16/23 10:33 06/16/23 10:33 06/16/23 10:33 06/09/23 09:07 Oxygen Delivery Method Room Air Weight: 124.284 kg Body Mass Index (BMI) 35.2 Physical Exam Const alert, oriented x3, no apparent distress and well nourished General Appearance: cooperative HEENT normocephalic Eyes General Eye: normal appearance of both eyes Neck General: normal visual inspection Lymph Lymphatic: no lymphadenopathy noted and no lymphedema noted Resp normal respiratory effort Cardio regular rate and regular rhythm Extremity normal capillary refill, no joint enlargement, no calf tenderness and no pedal edema Extremity Narrative: DP and PT pulses palpable. CFT less than 4 seconds to the digits. There is mild nonpitting edema about foot and ankle. Dermatological: There is a ulceration noted to the plantar aspect of the right foot subfifth metatarsal base/styloid process secondary to cavovarus deformity of the foot and continued pressure. Ulceration demonstrates fibrogranular base with serosanguineous drainage and surrounding hyperkeratosis secondary to previous blister. No purulent drainage, no erythema, no malodor, no lymphangitic streaking, no palpable fluctuance/bogginess noted, no visible abscess formation. Musculoskeletal: Muscle strength 5 of 5 age-appropriate. Prominent styloid process fifth metatarsal base with cavovarus foot deformity. Partial fifth Ray resection right foot. There is decreased range of motion of the ankle joint dorsiflexion decreased range of motion of the first metatarsophalangeal joint without pain or crepitus. Skin no rashes or lesions noted, skin turgor normal and no jaundice Neuro moves all extremities Debridement Note Debridement Note Wound debrided: Subfifth metatarsal Laterality: Right Wound Grade/Stage: Francois stage I Type of Debridement: Excisional debridement Anesthesia Used: 5% Lidocaine Gel Depth: Down to and including healthy tissue and in the subcutaneous layer Percentage of wound debrided: 100 Instrument Used: 5mm curette Tissue Removed: Fibrous, devitalized subcutaneous, biofilm, slough Severity: Fat Layer Exposed Amount of bleeding with debridement: Mild Bleeding Controlled with: Compression and gauze Patient tolerated procedure: Patient tolerated procedure well Post-Debridement Measurements and Additional Note: Post-Debridement Measurements/Treatment LC - Nurse 1 - General Ulcer Assessment Start: 06/09/23 08:59 Freq: Status: Active Protocol: LIZZETTE Activity Type Activity Date Activity User E-sign Co-sign Detail Recorded Client Recorded Date Recorded By Document 06/09/23 09:07 KW Desktop 06/09/23 09:22 KW Document 06/16/23 10:33 JF Laptop 06/16/23 10:42 JF 06/09/23 06/16/23 09:07 10:33 WC - Today's Visit Information Type of service Initial Visit Follow-up Visit (Physician/SWATCH MAKER ) Arrival Mode Ambulatory, Ambulatory, Crutches Crutches Patient Identification Verified (Name & Yes Yes ) Patient Requires Transmission-Based No Precautions Finger Stick Blood Sugar(mg/dl) (if 175 154 indicated): Blood Sugar Stated by Stated by Patient Patient Height and Weight Height 6 ft 2 in Weight 124.284 kg Weight in Pounds 274.0 lbs Weight Measurement Method Estimated by Patient Body Mass Index (BMI) 35.2 35.2 BMI Classification Obese Obese BSA - Ibrahima 2.48 Vital Signs Temperature (97.8 F-99.1 F) 97.6 F L Temperature Source Temporal Pulse Rate (60-100) 101 H 106 H Pulse Location Monitor Monitor Respiratory Rate (12-18) 18 16 Respiratory rate source Observation Observation Oxygen Delivery Method Room Air Blood Pressure (90/60-120/80) 155/83 H 133/68 H Blood Pressure Mean (mm Hg) 107 89 Source Monitor Monitor Position Sitting Semi-Fowlers Blood Pressure Location Left Arm Right Arm History Since Last Visit- (Skip if this is Patient's initial visit) Have you changed medications since your No last visit? Any new allergies or adverse reactions No Have you been in the hospital since your No last visit? Has dressing in place as prescribed Yes Has compression in place as prescribed N/A Has offloadiing in place as prescribed Yes Experienced any changes in pain level or No management Left Footwear Regular Shoe Regular Shoe Right Footwear Removable Cast Removable Cast Walker/Walking Walker/Walking Boot Boot Pain Scale: 0-10 Numeric Is Patient Pain Free? Yes Yes Lower Extremity Assessment/ Foot Assessment/ Toe Nail Assessment Right -Posterior Tibial Palpable Yes -Posterior Tibial Doppler Multiphasic -Dorsalis Pedis Palpable Yes -Dorsalis Pedis Doppler Multiphasic -Hair Growth on Legs No -Hair Growth on Toes No -Temperature of Extremity Warm -Capillary Refill Less than 3 Seconds -Thick Yes -Discolored Yes Left -Posterior Tibial Doppler Monophasic -Dorsalis Pedis Doppler Inaudible -Temperature of Extremity Warm -Capillary Refill Less than 3 Seconds -Thick Yes -Discolored Yes Communication Assessment Preferred language Micronesian Able to Read Yes Able to Write Yes Communication Tools None Caregiver Communication Skills No Impairment Impairment Right Hearing Abillity Normal Left Hearing Abillity Normal Visual Assistive Devices None Teaching Assessment Preferences Verbal,Written, Demonstration Barriers to Learning None Readiness To Learn Excellent Willingness to Engage in Self Management High Activies Readiness to Engage in Self Management High Activities Anxiety Level Calm Cooperation Cooperative Perception Coherent Interest in Health Problem Asks Questions Education Importance Acknowledges Need Does Patient Smoke tobacco or other Yes substances Smoking Status Never smoker Is Patient Diabetic Yes Functional Assessment Recent Decline in Ability to Perform Denies Any Declines Culture/Sabianism/Yoga Instructor Cultural/Sabianism Needs that may affect No Treatment Plan Would you allow our hospital bilingual interpreter to No meet you for the purpose of spiritual/ emotional support? Yoga Instructor to contact place of bahai No WC - Nurse 1 - General Ulcer Measurement Start: 06/09/23 08:59 Freq: Status: Active Protocol: Activity Type Activity Date Activity User E-sign Co-sign Detail Recorded Client Recorded Date Recorded By Document 06/09/23 09:07 INPHI Desktop 06/09/23 09:22 KW Document 06/16/23 10:33 Laptop 06/16/23 10:42 JF 06/09/23 06/16/23 09:07 10:33 Wound Center Nurse 1 #15 RT LAT FT -Combined with other wound No -Current Size (cm) - Length 2.8 2.8 -Current Size (cm) - Width 2.5 2.6 -Current Size (cm) - Depth 0.1 0.1 -Total Square Cm 7.00 7.28 -Date of Last Picture (Recall this 06/09/23 field) -Photo Taken Yes Yes -Epithelialization Small 1-33% -Tunneling No -Undermining/Tunneling No -Circular Undermining No -Exudate Amt Large Medium -Exudate Type Serosanguineous Serosanguineous -Wound Margin Distinct, Flat & Intact Outline Attached -Granulation Amt Large (67-100%) Large (67-100%) -Granulation Quality Red Red -Slough/Fibrin Yes -Necrosis Amt Medium (34-66%) Small (1-33%) -Necrotic Tissue Type Adherent Slough Adherent Slough -Structure Exposed N/A -Texture (Susana-wound Skin Appearance) Assessed,Callus Assessed,Callus ,Localized Edema -Moisture (Susana-wound Skin Appearance) Assessed Assessed,Dry/ Scaly -Color (Susana-wound Skin Appearance) Assessed Assessed -Temperature (Susana-wound Skin No Abnormality No Abnormality Appearance) (Pt Warm) (Pt Warm) -Ulcer Cleansing Soap and Water Wound Cleanser -Foul Odor after Cleansing No No -Anesthetic Used 5% Lidocaine 5% Lidocaine Gel Gel Lower Limb Edema Present NA WC - Nurse 2 - General Ulcer CM Notes Start: 06/09/23 08:59 Freq: Status: Active Protocol: Activity Type Activity Date Activity User E-sign Co-sign Detail Recorded Client Recorded Date Recorded By Document 06/09/23 10:31 PL Tablet 06/09/23 10:32 PL 06/09/23 10:31 Wound Center Nurse 2 #15 RT LAT FT -Time 09:30 -Correct Patient Yes -Correct Side, Site, Position Yes -Correct Procedure Yes -Procedure Performed Yes -Type of Procedure Debridement -Clinical Debridement Subcutaneous -Tissue Removed Subcutaneous -Post Debridement (cm) - Length 3.0 -Post Debridement (cm) - Width 3.2 -Post Debridement (cm) - Depth 0.2 -Total Square (Post) (cm) 9.60 -Area of Debridement (cm) - Length 3.0 -Area of Debridement (cm) - Width 3.2 -Total Square (Area) (cm) 9.60 -Tunneling No -Undermining/Tunneling No -Circular Undermining No -Wound/Ulcer Outcome Not Healed -Ulcer Cleansing Rinsed/ Irrigated with Saline -Foul Odor after Cleansing No -Bioengineered Tissue No -Bleeding Controlled with Pressure -Treatment Response Procedure Tolerated Well -Debridement - Subq, 1st 20sq cm Yes Pain Scale: 0-10 Numeric Is Patient Pain Free? Yes - Nurse 3 - General Ulcer D/C NN Start: 06/09/23 08:59 Freq: Status: Active Protocol: Activity Type Activity Date Activity User E-sign Co-sign Detail Recorded Client Recorded Date Recorded By Document 06/09/23 09:57 DL Desktop 06/09/23 10:03 DL Document 06/16/23 11:12 KW Desktop 06/16/23 11:13 KW 06/09/23 06/16/23 09:57 11:12 Wound Care Center Nurse 3 #15 RT LAT FT -Ulcer Cleansing Soap and Water -Foul Odor after Cleansing No -Primary Dressing Applied Promogran Padma Matter -Primary Dressing Covered/Secured with Dry Gauze & Dry Gauze & Roll Gauze, Roll Gauze, Secured with Secured with Tape Tape -Promogran Padma Matter 2 Treatment Response Procedure Tolerated Well Pain Scale: 0-10 Numeric Is Patient Pain Free? Yes Yes WC - Visit Discharge Discharge Condition Stable Stable Ambulatory Status Ambulatory Ambulatory Transportation Private Auto Private Auto Medication Reconcilliation completed & No provided to patient/care provider Clinical Summary of Care Provided Yes Assessment/Plan Assessment/Plan (1) Ulcer of right foot with fat layer exposed: CODE(S): L97.512 - Non-pressure chronic ulcer of other part of right foot with fat layer exposed (2) Type 2 diabetes mellitus with diabetic polyneuropathy: CODE(S): E11.42 - Type 2 diabetes mellitus with diabetic polyneuropathy (3) Type 2 diabetes mellitus with foot ulcer: CODE(S): E11.621 - Type 2 diabetes mellitus with foot ulcer; L97.509 - Non-pressure chronic ulcer of other part of unspecified foot with unspecified severity (4) Venous insufficiency: CODE(S): I87.2 - Venous insufficiency (chronic) (peripheral) (5) Leg edema: CODE(S): R60.0 - Localized edema (6) Other specified peripheral vascular diseases: CODE(S): I73.89 - Other specified peripheral vascular diseases (7) Obesity: CODE(S): E66.9 - Obesity, unspecified QUALIFIERS: Obesity type: due to excess calories Obesity severity: morbid Qualified Code(s): E66.01 - Morbid (severe) obesity due to excess calories PLAN: Plan Patient seen and evaluated Ulceration to the plantar aspect of the right foot underwent debridement as noted in clinical panel above. Ulceration measures 3.0 cm x 3.0 cm x 0.2 cm. No signs of infection. Dakin's wet-to-dry applied to the wound base and dressed with dry sterile dressing. He was placed back into his CAM boot with plantar offloading padding and instructed to remain nonweightbearing to the right foot with the assistance of crutches. He is to change dressing daily. Wound demonstrates minimal improvement from previous visit. Discussed seeking approval for advanced wound care product for application at next visit. Will plan for labs including HgbA1c to be obtained for next visit. Previous A1c on record from 12/04/2021 was 6.2%. Radiographs obtained 06/14/2023 negative for osteomyelitis. Venous studies performed 06/14/2023 and are negative for DVT. He does have segmental valvular incompetence noted within the great saphenous veins bilaterally. Accessory saphenous vein in the right mid thigh is incompetent. Accessory saphenous vein in the left mid calf is incompetent. LEAS performed 06/14/2023: LLE?DP artery biphasic, PT artery monophasic; PT and DP PT artery noncompressible. PT artery indices 0.49, left DP indices 0.82, left digital brachial indices 0.74. RLE?right PT artery triphasic. PT and DP noncompressible. Right digital brachial indices 0.47. Interpretation: PVRs diminished at the ankle and digital levels on the left with right undetermined due to noncompressibility of the vasculature at the ankle level on the right. There is evidence of moderate arterial occlusive disease in the lower extremities bilateral. Discussed the importance of continued offloading in CAM boot with plantar offloading padding and to remain nonweightbearing to the right lower extremity with the assistance of crutches to aid in wound healing. Discussed that his foot type with prominent fifth metatarsal base secondary to his foot deformity will continue to create problems with wounds and healing and that he should always remain in diabetic shoe gear with protective offloading inserts. Discussed proper diabetic diet to aid in continued wound healing. Stressed importance of maintaining tight glycemic control to aid in wound healing. Discussed importance of daily foot checks and to never walk barefoot. Discussed socks include barefoot. Discussed adequate protein intake for continued wound healing. Toni supplementation also recommended. Discussed signs and symptoms of infection. Discussed if he notices redness about the wound that spreads on top of the foot or up the leg, if he has any purulent drainage from the wound site, has increasing foul odor to the wound, or if he experiences fever greater than 101 accompanied by nausea, vomiting, fever, chills these are signs of a progressing infection and he should report to the ED for IV antibiotics. He voices understanding of this. The following work up and care recommendations were made: Dressing: Dakin's wet-to-dry dressing and dry sterile dressing, change daily. Wash: Soap and water Tissue growth optimization: Dakin's Offload: CAM boot to the right foot with plantar offloading padding. He is to remain nonweightbearing with the assistance of crutches to the right foot Vascular: History of vascular disease. DP and PT pulses were palpable with adequate capillary fill time. Do not feel vascular status is impacting healing at this time. Edema: Recommended Tubigrip compression and following wound healing compression stockings 20 to 30 mmHg. Infection: No signs of infection. Patient currently finishing oral antibiotic course Pain: No pain secondary to diabetic peripheral polyneuropathy. May take [id number] Tylenol Extra Strength as needed for discomfort Host factors: DM type II with peripheral polyneuropathy, cavus foot, excessive pressure, obesity I answered all the patient's questions. To return to the wound healing center in 1 week or call sooner if the patient has any questions or concerns.
--- NOTE | 2023-06-23 09:51 | PN.PCM_ITS ---
History of Present Illness Date of Service: 06/23/23 Chief Complaint: left foot ulcers History of Wound: This 57-year-old male presents to the wound care center as referral by his pump and blower operator Dr. Enciso for plantar right foot ulceration. He has PMHx of bilateral foot wounds, partial fifth ray resection right foot, DM type II with peripheral polyneuropathy, cavovarus deformity right foot, chronic venous insufficiency, lower extremity edema, HTN, obesity. He states he did receive new shoes for [place] and 2 days later on May 04, 2023 states that he had new wound development to the plantar aspect of the fifth metatarsal base of the right foot. He states he feels that shoes were too tight. He does have peripheral polyneuropathy and did not notice they were too tight until wound developed. He did go to urgent care and received 7-day course of doxycycline. He did finish antibiotic course to completion and followed up with his pump and blower operator in office and underwent debridement with Betadine to the wound margin and Aquacel to the wound base. He was dressed and dry sterile dressing and offloading in CAM boot and has remained nonweightbearing with the assistance of crutches. At this time he was urged to go to hospital for further treatment given history of infection and amputation however he did refuse at this time and requested evaluation at the wound care center. He was thus started on Augmentin and Cipro and is currently finishing oral antibiotic course. He states he is c ontinue to remain nonweightbearing and changing dressings daily. He currently denies N/V/F/chills. Denies further complaints. Subjective Subjective Patient is a 57-year-old male who follows to the wound care center today for continued care of plantar subfifth metatarsal ulceration of the right foot. He continues to offloading CAM boot and has attempted to remain nonweightbearing with crutches. He does state difficulty with a nonweightbearing status at all times. He has continued to change dressings daily. States ulcer looks to be improving and getting smaller. Denies constitutional symptoms. Denies further complaints. Objective Data Objective Data Vital Signs: Vital Signs Temp Pulse Resp BP O2 Del Method 97.6 F L 106 H 16 133/68 H Room Air 06/16/23 10:33 06/16/23 10:33 06/16/23 10:33 06/16/23 10:33 06/09/23 09:07 Oxygen Delivery Method Room Air Weight: 124.284 kg Body Mass Index (BMI) 35.2 Physical Exam Const alert, oriented x3, no apparent distress and well nourished General Appearance: cooperative HEENT normocephalic Eyes General Eye: normal appearance of both eyes Neck General: normal visual inspection Lymph Lymphatic: no lymphadenopathy noted and no lymphedema noted Resp normal respiratory effort Cardio regular rate and regular rhythm Extremity normal capillary refill, no joint enlargement, no calf tenderness and no pedal edema Extremity Narrative: DP and PT pulses palpable. CFT less than 4 seconds to the digits. There is mild nonpitting edema about foot and ankle. Dermatological: There is a ulceration noted to the plantar aspect of the right foot subfifth metatarsal base/styloid process secondary to cavovarus deformity of the foot and continued pressure. Ulceration demonstrates fibrogranular base with serosanguineous drainage and surrounding hyperkeratosis secondary to prev ious blister. No purulent drainage, no erythema, no malodor, no lymphangitic streaking, no palpable fluctuance/bogginess noted, no visible abscess formation. Musculoskeletal: Muscle strength 5 of 5 age-appropriate. Prominent styloid process fifth metatarsal base with cavovarus foot deformity. Partial fifth Ray resection right foot. There is decreased range of motion of the ankle joint dorsiflexion decreased range of motion of the first metatarsophalangeal joint without pain or crepitus. Skin no rashes or lesions noted, skin turgor normal and no jaundice Neuro moves all extremities Debridement Note Debridement Note Wound debrided: Subfifth metatarsal right foot Laterality: Right Wound Grade/Stage: Francois stage I Type of Debridement: Excisional debridement Anesthesia Used: 5% Lidocaine Gel Depth: Down to and including healthy tissue and in the subcutaneous layer Percentage of wound debrided: 100 Instrument Used: 5mm curette Tissue Removed: Fibrous, devitalized subcutaneous, biofilm, slough Severity: Fat Layer Exposed Amount of bleeding with debridement: Mild Bleeding Controlled with: Compression and gauze Patient tolerated procedure: Patient tolerated procedure well Post-Debridement Measurements and Additional Note: Post-Debridement Measurements/Treatment LC - Nurse 1 - General Ulcer Assessment Start: 06/09/23 08:59 Freq: Status: Active Protocol: LIZZETTE Activity Type Activity Date Activity User E-sign Co-sign Detail Recorded Client Recorded Date Recorded By Document 06/09/23 09:07 KW Desktop 06/09/23 09:22 KW Document 06/16/23 10:33 JF Laptop 06/16/23 10:42 JF 06/09/23 06/16/23 09:07 10:33 WC - Today's Visit Information Type of service Initial Visit Follow-up Visit (Physician/[employer] P[employer] 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 ) Arrival Mode Ambulatory, Ambulatory, Crutches Crutches Patient Identification Verified (Name & Yes Yes ) Patient Requires Transmission-Based No Precautions Finger Stick Blood Sugar(mg/dl) (if 175 154 indicated): Blood Sugar Stated by Stated by Patient Patient Height and Weight Height 6 ft 2 in Weight 124.284 kg Weight in Pounds 274.0 lbs Weight Measurement Method Estimated by Patient Body Mass Index (BMI) 35.2 35.2 BMI Classification Obese Obese BSA - Ibrahima 2.48 Vital Signs Temperature (97.8 F-99.1 F) 97.6 F L Temperature Source Temporal Pulse Rate (60-100) 101 H 106 H Pulse Location Monitor Monitor Respiratory Rate (12-18) 18 16 Respiratory rate source Observation Observation Oxygen Delivery Method Room Air Blood Pressure (90/60-120/80) 155/83 H 133/68 H Blood Pressure Mean (mm Hg) 107 89 Source Monitor Monitor Position Sitting Semi-Fowlers Blood Pressure Location Left Arm Right Arm History Since Last Visit- (Skip if this is Patient's initial visit) Have you changed medications since your No last visit? Any new allergies or adverse reactions No Have you been in the hospital since your No last visit? Has dressing in place as prescribed Yes Has compression in place as prescribed N/A Has offloadiing in place as prescribed Yes Experienced any changes in pain level or No management Left Footwear Regular Shoe Regular Shoe Right Footwear Removable Cast Removable Cast Walker/Walking Walker/Walking Boot Boot Pain Scale: 0-10 Numeric Is Patient Pain Free? Yes Yes Lower Extremity Assessment/ Foot Assessment/ Toe Nail Assessment Right -Posterior Tibial Palpable Yes -Posterior Tibial Doppler Multiphasic -Dorsalis Pedis Palpable Yes -Dorsalis Pedis Doppler Multiphasic -Hair Growth on Legs No -Hair Growth on Toes No -Temperature of Extremity Warm -Capillary Refill Less than 3 Seconds -Thick Yes -Discolored Yes Left -Posterior Tibial Doppler Monophasic -Dorsalis Pedis Doppler Inaudible -Temperature of Extremity Warm -Capillary Refill Less than 3 Seconds -Thick Yes -Discolored Yes Communication Assessment Preferred language [place] Able to Read Yes Able to Write Yes Communication Tools None Caregiver Communication Skills No Impairment Impairment Right Hearing Abillity Normal Left Hearing Abillity Normal Visual Assistive Devices None Teaching Assessment Preferences Verbal,Written, Demonstration Barriers to Learning None Readiness To Learn Excellent Willingness to Engage in Self Management High Activies Readiness to Engage in Self Management High Activities Anxiety Level Calm Cooperation Cooperative Perception Coherent Interest in Health Problem Asks Questions Education Importance Acknowledges Need Does Patient Smoke tobacco or other Yes substances Smoking Status Never smoker Is Patient Diabetic Yes Functional Assessment Recent Decline in Ability to Perform Denies Any Declines Culture/Denominational/Barrel Drainer Cultural/Denominational Needs that may affect No Treatment Plan Would you allow [facility] advisor advocate angel co founder to No meet you for the purpose of spiritual/ emotional support? Barrel Drainer to contact place of latter day No WC - Nurse 1 - General Ulcer Measurement Start: 06/09/23 08:59 Freq: Status: Active Protocol: Activity Type Activity Date Activity User E-sign Co-sign Detail Recorded Client Recorded Date Recorded By Document 06/09/23 09:07 Ninite Desktop 06/09/23 09:22 KW Document 06/16/23 10:33 Laptop 06/16/23 10:42 06/09/23 06/16/23 09:07 10:33 Wound Center Nurse 1 #15 RT LAT FT -Combined with other wound No -Current Size (cm) - Length 2.8 2.8 -Current Size (cm) - Width 2.5 2.6 -Current Size (cm) - Depth 0.1 0.1 -Total Square Cm 7.00 7.28 -Date of Last Picture (Recall this 06/09/23 field) -Photo Taken Yes Yes -Epithelialization Small 1-33% -Tunneling No -Undermining/Tunneling No -Circular Undermining No -Exudate Amt Large Medium -Exudate Type Serosanguineous Serosanguineous -Wound Margin Distinct, Flat & Intact Outline Attached -Granulation Amt Large (67-100%) Large (67-100%) -Granulation Quality Red Red -Slough/Fibrin Yes -Necrosis Amt Medium (34-66%) Small (1-33%) -Necrotic Tissue Type Adherent Slough Adherent Slough -Structure Exposed N/A -Texture (Susana-wound Skin Appearance) Assessed,Callus Assessed,Callus ,Localized Edema -Moisture (Susana-wound Skin Appearance) Assessed Assessed,Dry/ Scaly -Color (Susana-wound Skin Appearance) Assessed Assessed -Temperature (Susana-wound Skin No Abnormality No Abnormality Appearance) (Pt Warm) (Pt Warm) -Ulcer Cleansing Soap and Water Wound Cleanser -Foul Odor after Cleansing No No -Anesthetic Used 5% Lidocaine 5% Lidocaine Gel Gel Lower Limb Edema Present NA WC - Nurse 2 - General Ulcer CM Notes Start: 06/09/23 08:59 Freq: Status: Active Protocol: Activity Type Activity Date Activity User E-sign Co-sign Detail Recorded Client Recorded Date Recorded By Document 06/09/23 10:31 PL Tablet 06/09/23 10:32 PL Document 06/16/23 13:15 PL [id number] 06/16/23 13:16 PL 06/09/23 06/16/23 10:31 13:15 Wound Center Nurse 2 #15 RT LAT FT -Time 09:30 11:05 -Correct Patient Yes Yes -Correct Side, Site, Position Yes Yes -Correct Procedure Yes Yes -Procedure Performed Yes Yes -Type of Procedure Debridement Debridement -Clinical Debridement Subcutaneous Subcutaneous -Tissue Removed Subcutaneous Subcutaneous -Post Debridement (cm) - Length 3.0 3.0 -Post Debridement (cm) - Width 3.2 3.0 -Post Debridement (cm) - Depth 0.2 0.1 -Total Square (Post) (cm) 9.60 9.00 -Area of Debridement (cm) - Length 3.0 3.0 -Area of Debridement (cm) - Width 3.2 3.0 -Total Square (Area) (cm) 9.60 9.00 -Tunneling No No -Undermining/Tunneling No No -Circular Undermining No No -Wound/Ulcer Outcome Not Healed Not Healed -Ulcer Cleansing Rinsed/ Rinsed/ Irrigated with Irrigated with Saline Saline -Foul Odor after Cleansing No No -Bioengineered Tissue No No -Bleeding Controlled with Pressure Pressure -Treatment Response Procedure Procedure Tolerated Well Tolerated Well -Debridement - Subq, 1st 20sq cm Yes Yes Pain Scale: 0-10 Numeric Is Patient Pain Free? Yes Yes - Nurse 3 - General Ulcer D/C NN Start: 06/09/23 08:59 Freq: Status: Active Protocol: Activity Type Activity Date Activity User E-sign Co-sign Detail Recorded Client Recorded Date Recorded By Document 06/09/23 09:57 DL Desktop 06/09/23 10:03 DL Document 06/16/23 11:12 KW Desktop 06/16/23 11:13 KW 06/09/23 06/16/23 09:57 11:12 Wound Care Center Nurse 3 #15 RT LAT FT -Ulcer Cleansing Soap and Water -Foul Odor after Cleansing No -Primary Dressing Applied Promogran Padma Matter -Primary Dressing Covered/Secured with Dry Gauze & Dry Gauze & Roll Gauze, Roll Gauze, Secured with Secured with Tape Tape -Promogran Padma Matter 2 Treatment Response Procedure Tolerated Well Pain Scale: 0-10 Numeric Is Patient Pain Free? Yes Yes WC - Visit Discharge Discharge Condition Stable Stable Ambulatory Status Ambulatory Ambulatory Transportation Private Auto Private Auto Medication Reconcilliation completed & No provided to patient/care provider Clinical Summary of Care Provided Yes Assessment/Plan Assessment/Plan (1) Ulcer of right foot with fat layer exposed: CODE(S): L97.512 - Non-pressure chronic ulcer of other part of right foot with fat layer exposed (2) Type 2 diabetes mellitus with diabetic polyneuropathy: CODE(S): E11.42 - Type 2 diabetes mellitus with diabetic polyneuropathy (3) Type 2 diabetes mellitus with foot ulcer: CODE(S): E11.621 - Type 2 diabetes mellitus with foot ulcer; L97.509 - Non-pressure chronic ulcer of other part of unspecified foot with unspecified severity (4) Venous insufficiency: CODE(S): I87.2 - Venous insufficiency (chronic) (peripheral) (5) Leg edema: CODE(S): R60.0 - Localized edema (6) Other specified peripheral vascular diseases: CODE(S): I73.89 - Other specified peripheral vascular diseases (7) Obesity: CODE(S): E66.9 - Obesity, unspecified QUALIFIERS: Obesity severity: morbid Obesity type: due to excess calories Qualified Code(s): E66.01 - Morbid (severe) obesity due to excess calories PLAN: Plan Patient seen and evaluated Ulceration to the plantar aspect of the right foot underwent debridement as noted in clinical panel above. Ulceration measures 2.8 cm x 2.5 cm x 0.2 cm. No signs of infection. Dakin's wet-to-dry applied to the wound base and dressed with dry sterile dressing. He was placed back into his CAM boot with plantar offloading padding and instructed to remain nonweightbearing to the right foot with the assistance of crutches. He is to change dressing daily. Wound demonstrates improvement with reduction in size vs previous visit. Seeking approval for advanced wound care product for application at next visit, awaiting approval from insurance. Will plan for labs including HgbA1c to be obtained for next visit. Previous A1c on record from 12/04/2021 was 6.2%. Radiographs obtained 06/14/2023 negative for osteomyelitis. Venous studies performed 06/14/2023 and are negative for DVT. He does have segmental valvular incompetence noted within the great saphenous veins bilaterally. Accessory saphenous vein in the right mid thigh is incompetent. Accessory saphenous vein in the left mid calf is incompetent. LEAS performed 06/14/2023: LLE?DP artery biphasic, PT artery monophasic; PT and DP PT artery noncompressible. PT artery indices 0.49, left DP indices 0.82, left digital brachial indices 0.74. RLE?right PT artery triphasic. PT and DP noncompressible. Right digital brachial indices 0.47. Interpretation: PVRs diminished at the ankle and digital levels on the left with right undetermined due to noncompressibility of the vasculature at the ankle level on the right. There is evidence of moderate arterial occlusive disease in the lower extremities bilateral. He has been referred to Dr. Harrington and has appointment with him next week. Discussed the importance of continued offloading in CAM boot with plantar offloading padding and to remain nonweightbearing to the right lower extremity with the assistance of crutches to aid in wound healing. Discussed that his foot type with prominent fifth metatarsal base secondary to his foot deformity will continue to create problems with wounds and healing and that he should alwa ys remain in diabetic shoe gear with protective offloading inserts. Discussed proper diabetic diet to aid in continued wound healing. Stressed importance of maintaining tight glycemic control to aid in wound healing. Discussed importance of daily foot checks and to never walk barefoot. Discussed socks include barefoot. Discussed adequate protein intake for continued wound healing. Toni supp lementation also recommended. Discussed signs and symptoms of infection. Discussed if he notices redness about the wound that spreads on top of the foot or up the leg, if he has any purulent drainage from the wound site, has increasing foul odor to the wound, or if he experiences fever greater than 101 accompanied by nausea, vomiting, fever, chills these are signs of a progressing infection and he should report to the ED for IV antibiotics. He voices understanding of this. The following work up and care recommendations were made: Dressing: Dakin's wet-to-dry dressing and dry sterile dressing, change daily. Wash: Soap and water Tissue growth optimization: Dakin's Offload: CAM boot to the right foot with plantar offloading padding. He is to remain nonweightbearing with the assistance of crutches to the right foot Vascular: History of vascular disease. DP and PT pulses were palpable with adequate capillary fill time. Do not feel vascular status is impacting healing at this time. Edema: Recommended Tubigrip compression and following wound healing compression stockings 20 to 30 mmHg. Infection: No signs of infection. Patient currently finishing oral antibiotic course Pain: No pain secondary to diabetic peripheral polyneuropathy. May take [id number] Tylenol Extra Strength as needed for discomfort Host factors: DM type II with peripheral polyneuropathy, cavus foot, excessive pressure, obesity I answered all the patient's questions. To return to the wound healing center in 1 week or call sooner if the patient has any questions or concerns.
[2023-06-23 10:01] VITALS: BP 144/73; PULSE 97; RESP 20; TEMP 36.2; BMI 35.2
--- NOTE | 2023-06-30 10:08 | PCM.WC.PN ---
History of Present Illness Date of Service: 06/30/23 Chief Complaint: left foot ulcers History of Wound: This 57-year-old male presents to the wound care center as referral by his residential nurse Dr. Enciso for plantar right foot ulceration. He has PMHx of bilateral foot wounds, partial fifth ray resection right foot, DM type II with peripheral polyneuropathy, cavovarus deformity right foot, chronic venous insufficiency, lower extremity edema, HTN, obesity. He states he did receive new shoes for [place] and 2 days later on May 04, 2023 states that he had new wound development to the plantar aspect of the fifth metatarsal base of the right foot. He states he feels that shoes were too tight. He does have peripheral polyneuropathy and did not notice they were too tight until wound developed. He did go to urgent care and received 7-day course of doxycycline. He did finish antibiotic course to completion and followed up with his residential nurse in office and underwent debridement with Betadine to the wound margin and Aquacel to the wound base. He was dressed and dry sterile dressing and offloading in CAM boot and has remained nonweightbearing with the assistance of crutches. At this time he was urged to go to hospital for further treatment given history of infection and amputation however he did refuse at this time and requested evaluation at the wound care center. He was thus started on Augmentin and Cipro and is currently finishing oral antibiotic course. He states he is continue to remain nonweightbearing and changing dressings daily. He currently denies N/V/F/chills. Denies further complaints. Subjective Subjective Patient is a 57-year-old male who follows to the wound care center today for continued care of plantar subfifth metatarsal ulceration of the right foot. He continues to offloading CAM boot and has attempted to remain nonweightbearing with crutches. He does state difficulty with a nonweightbearing status at all times. He has continued to change dressings daily with Dakins. States ulcer looks to be improving and getting smaller. Denies constitutional symptoms. Denies further complaints. Objective Data Objective Data Vital Signs: Vital Signs Temp Pulse Resp BP O2 Del Method 97.1 F L 97 20 H 144/73 H Room Air 06/23/23 10:06/23/23 10:06/23/23 10:06/23/23 10:01 06/09/23 09:07 Oxygen Delivery Method Room Air Weight: 124.284 kg Body Mass Index (BMI) 35.2 Physical Exam Const alert, oriented x3, no apparent distress and well nourished General Appearance: cooperative HEENT normocephalic Eyes General Eye: normal appearance of both eyes Neck General: normal visual inspection Lymph Lymphatic: no lymphadenopathy noted and no lymphedema noted Resp normal respiratory effort Cardio regular rate and regular rhythm Extremity normal capillary refill, no joint enlargement, no calf tenderness and no pedal edema Extremity Narrative: DP and PT pulses palpable. CFT less than 4 seconds to the digits. There is mild nonpitting edema about foot and ankle. Dermatological: There is a ulceration noted to the plantar aspect of the right foot subfifth metatarsal base/styloid process secondary to cavovarus deformity of the foot and continued pressure. Ulceration demonstrates fibrogranular base with serosanguineous drainage and surrounding hyperkeratosis secondary to previous blister. No purulent drainage, no erythema, no malodor, no lymphangitic streaking, no palpable fluctuance/bogginess noted, no visible abscess formation. Musculoskeletal: Muscle strength 5 of 5 age-appropriate. Prominent styloid process fifth metatarsal base with cavovarus foot deformity. Partial fifth Ray resection right foot. There is decreased range of motion of the ankle joint dorsiflexion decreased range of motion of the first metatarsophalangeal joint without pain or crepitus. Skin no rashes or lesions noted, skin turgor normal and no jaundice Neuro moves all extremities Debridement Note Debridement Note Wound debrided: Subfifth metatarsal base right foot Laterality: Right Wound Grade/Stage: Francois stage I Type of Debridement: Excisional debridement Anesthesia Used: 5% Lidocaine Gel Depth: Down to and including healthy tissue and in the subcutaneous layer Percentage of wound debrided: 100 Instrument Used: 5mm curette Tissue Removed: Fibrous, devitalized subcutaneous, biofilm, slough Severity: Fat Layer Exposed Amount of bleeding with debridement: Mild Bleeding Controlled with: Compression and gauze Patient tolerated procedure: Patient tolerated procedure well Post-Debridement Measurements and Additional Note: Post-Debridement Measurements/Treatment LC - Nurse 1 - General Ulcer Assessment Start: 06/09/23 08:59 Freq: Status: Active Protocol: LIZZETTE Activity Type Activity Date Activity User E-sign Co-sign Detail Recorded Client Recorded Date Recorded By Document 06/09/23 09:07 KW Desktop 06/09/23 09:22 KW Document 06/16/23 10:33 JF Laptop 06/16/23 10:42 JF Document 06/23/23 10:01 DL Desktop 06/23/23 10:05 DL 06/09/23 06/16/23 06/23/23 09:07 10:33 10:01 WC - Today's Visit Information Type of service Initial Visit Follow-up Visit Follow-up Visit (Physician/UNLOAD ASSOCIATE (Physician/UNLOAD ASSOCIATE ) ) Arrival Mode Ambulatory, Ambulatory, Ambulatory Crutches Crutches Transfer Assistance None Patient Identification Verified (Name & Yes Yes Yes ) Patient Requires Transmission-Based No No Precautions Finger Stick Blood Sugar(mg/dl) (if 175 154 140 indicated): Blood Sugar Stated by Stated by Stated by Patient Patient Patient Height and Weight Height 6 ft 2 in Weight 124.284 kg Weight in Pounds 274.0 lbs Weight Measurement Method Estimated by Patient Body Mass Index (BMI) 35.2 35.2 35.2 BMI Classification Obese Obese Obese BSA - Ibrahima 2.48 Vital Signs Temperature (97.8 F-99.1 F) 97.6 F L 97.1 F L Temperature Source Temporal Temporal Pulse Rate (60-100) 101 H 106 H 97 Pulse Location Monitor Monitor Monitor Respiratory Rate (12-18) 18 16 20 H Respiratory rate source Observation Observation Observation Oxygen Delivery Method Room Air Blood Pressure (90/60-120/80) 155/83 H 133/68 H 144/73 H Blood Pressure Mean (mm Hg) 107 89 96 Source Monitor Monitor Monitor Position Sitting Semi-Fowlers Blood Pressure Location Left Arm Right Arm History Since Last Visit- (Skip if this is Patient's initial visit) Have you changed medications since your No No last visit? Any new allergies or adverse reactions No No Had a fall/change in ADL's that may No increase risk of falls Signs or symptoms of abuse and/or No neglect since last visit Have you been in the hospital since your No No last visit? Has dressing in place as prescribed Yes Yes Has compression in place as prescribed N/A N/A Has offloadiing in place as prescribed Yes Yes Experienced any changes in pain level or No No management Left Footwear Regular Shoe Regular Shoe Regular Shoe Right Footwear Removable Cast Removable Cast Surgical Shoe Walker/Walking Walker/Walking with pressure Boot Boot relief insole Pain Scale: 0-10 Numeric Is Patient Pain Free? Yes Yes Yes Lower Extremity Assessment/ Foot Assessment/ Toe Nail Assessment Right -Posterior Tibial Palpable Yes -Posterior Tibial Doppler Multiphasic -Dorsalis Pedis Palpable Yes -Dorsalis Pedis Doppler Multiphasic -Hair Growth on Legs No -Hair Growth on Toes No -Temperature of Extremity Warm -Capillary Refill Less than 3 Seconds -Thick Yes -Discolored Yes Left -Posterior Tibial Doppler Monophasic -Dorsalis Pedis Doppler Inaudible -Temperature of Extremity Warm -Capillary Refill Less than 3 Seconds -Thick Yes -Discolored Yes Communication Assessment Preferred language Swedish Able to Read Yes Able to Write Yes Communication Tools None Caregiver Communication Skills No Impairment Impairment Right Hearing Abillity Normal Left Hearing Abillity Normal Visual Assistive Devices None Teaching Assessment Preferences Verbal,Written, Demonstration Barriers to Learning None Readiness To Learn Excellent Willingness to Engage in Self Management High Activies Readiness to Engage in Self Management High Activities Anxiety Level Calm Cooperation Cooperative Perception Coherent Interest in Health Problem Asks Questions Education Importance Acknowledges Need Does Patient Smoke tobacco or other Yes substances Smoking Status Never smoker Is Patient Diabetic Yes Functional Assessment Recent Decline in Ability to Perform Denies Any Declines Culture/Adventist/Manager Project Management Cultural/Adventist Needs that may affect No Treatment Plan Would you allow our hospital journeyman tool and die maker to No meet you for the purpose of spiritual/ emotional support? Manager Project Management to contact place of hindu No WC - Nurse 1 - General Ulcer Measurement Start: 06/09/23 08:59 Freq: Status: Active Protocol: Activity Type Activity Date Activity User E-sign Co-sign Detail Recorded Client Recorded Date Recorded By Document 06/09/23 09:07 KW Desktop 06/09/23 09:22 KW Document 06/16/23 10:33 JF Laptop 06/16/23 10:42 JF Document 06/23/23 10:01 DL Desktop 06/23/23 10:05 DL 06/09/23 06/16/23 06/23/23 09:07 10:33 10:01 Wound Center Nurse 1 #15 RT LAT FT -Combined with other wound No -Current Size (cm) - Length 2.8 2.8 2.7 -Current Size (cm) - Width 2.5 2.6 2 -Current Size (cm) - Depth 0.1 0.1 0.1 -Total Square Cm 7.00 7.28 5.4 -Date of Last Picture (Recall this 06/09/23 field) -Photo Taken Yes Yes -Epithelialization Small 1-33% -Tunneling No -Undermining/Tunneling No -Circular Undermining No -Exudate Amt Large Medium Medium -Exudate Type Serosanguineous Serosanguineous Serosanguineous -Wound Margin Distinct, Flat & Intact Distinct, Outline Outline Attached Attached -Granulation Amt Large (67-100%) Large (67-100%) Large (67-100%) -Granulation Quality Red Red Red -Slough/Fibrin Yes -Necrosis Amt Medium (34-66%) Small (1-33%) None Present (0 %) -Necrotic Tissue Type Adherent Slough Adherent Slough -Structure Exposed N/A N/A -Texture (Susana-wound Skin Appearance) Assessed,Callus Assessed,Callus Callus, ,Localized Localized Edema Edema ,Scarring -Moisture (Susana-wound Skin Appearance) Assessed Assessed,Dry/ Maceration Scaly -Color (Susana-wound Skin Appearance) Assessed Assessed No Abnormality -Temperature (Susana-wound Skin No Abnormality No Abnormality No Abnormality Appearance) (Pt Warm) (Pt Warm) (Pt Warm) -Ulcer Cleansing Soap and Water Wound Cleanser Soap and Water -Foul Odor after Cleansing No No No -Anesthetic Used 5% Lidocaine 5% Lidocaine 5% Lidocaine Gel Gel Gel Lower Limb Edema Present NA WC - Nurse 2 - General Ulcer CM Notes Start: 06/09/23 08:59 Freq: Status: Active Protocol: Activity Type Activity Date Activity User E-sign Co-sign Detail Recorded Client Recorded Date Recorded By Document 06/09/23 10:31 PL Tablet 06/09/23 10:32 PL Document 06/16/23 13:15 PL [id number] 06/16/23 13:16 PL Document 06/23/23 11:40 PL [id number] 06/23/23 11:40 PL 06/09/23 06/16/23 06/23/23 10:31 13:15 11:40 Wound Center Nurse 2 #15 RT LAT FT -Time 09:30 11:05 10:14 -Correct Patient Yes Yes Yes -Correct Side, Site, Position Yes Yes Yes -Correct Procedure Yes Yes Yes -Procedure Performed Yes Yes Yes -Type of Procedure Debridement Debridement Debridement -Clinical Debridement Subcutaneous Subcutaneous Subcutaneous -Tissue Removed Subcutaneous Subcutaneous Subcutaneous -Post Debridement (cm) - Length 3.0 3.0 2.8 -Post Debridement (cm) - Width 3.2 3.0 2.5 -Post Debridement (cm) - Depth 0.2 0.1 0.1 -Total Square (Post) (cm) 9.60 9.00 7.00 -Area of Debridement (cm) - Length 3.0 3.0 2.8 -Area of Debridement (cm) - Width 3.2 3.0 2.5 -Total Square (Area) (cm) 9.60 9.00 7.00 -Tunneling No No No -Undermining/Tunneling No No No -Circular Undermining No No No -Wound/Ulcer Outcome Not Healed Not Healed Not Healed -Ulcer Cleansing Rinsed/ Rinsed/ Rinsed/ Irrigated with Irrigated with Irrigated with Saline Saline Saline -Foul Odor after Cleansing No No No -Bioengineered Tissue No No No -Bleeding Controlled with Pressure Pressure Pressure -Treatment Response Procedure Procedure Procedure Tolerated Well Tolerated Well Tolerated Well -Debridement - Subq, 1st 20sq cm Yes Yes Yes Pain Scale: 0-10 Numeric Is Patient Pain Free? Yes Yes Yes WC - Nurse 3 - General Ulcer D/C NN Start: 06/09/23 08:59 Freq: Status: Active Protocol: Activity Type Activity Date Activity User E-sign Co-sign Detail Recorded Client Recorded Date Recorded By Document 06/09/23 09:57 DL [email or web address] 06/09/23 10:03 DL Document 06/16/23 11:12 Desktop 06/16/23 11:13 KW Document 06/23/23 10:35 DL Desktop 06/23/23 10:37 DL 06/09/23 06/16/23 06/23/23 09:57 11:12 10:35 Wound Care Center Nurse 3 #15 RT LAT FT -Ulcer Cleansing Soap and Water Rinsed/ Irrigated with Saline -Foul Odor after Cleansing No No -Primary Dressing Applied Promogran Padma Matter -Other Dressing dakins -Primary Dressing Covered/Secured with Dry Gauze & Dry Gauze & Dry Gauze & Roll Gauze, Roll Gauze, Roll Gauze, Secured with Secured with Secured with Tape Tape Tape -Promogran Padma Matter 2 Treatment Response Procedure Procedure Tolerated Well Tolerated Well Pain Scale: 0-10 Numeric Is Patient Pain Free? Yes Yes Yes WC - Visit Discharge Discharge Condition Stable Stable Stable Ambulatory Status Ambulatory Ambulatory Ambulatory, Crutches Transportation Private Auto Private Auto Private Auto Medication Reconcilliation completed & No provided to patient/care provider Clinical Summary of Care Provided Yes Assessment/Plan Assessment/Plan (1) Ulcer of right foot with fat layer exposed: CODE(S): L97.512 - Non-pressure chronic ulcer of other part of right foot with fat layer exposed (2) Type 2 diabetes mellitus with diabetic polyneuropathy: CODE(S): E11.42 - Type 2 diabetes mellitus with diabetic polyneuropathy (3) Type 2 diabetes mellitus with foot ulcer: CODE(S): E11.621 - Type 2 diabetes mellitus with foot ulcer; L97.509 - Non-pressure chronic ulcer of other part of unspecified foot with unspecified severity (4) Venous insufficiency: CODE(S): I87.2 - Venous insufficiency (chronic) (peripheral) (5) Leg edema: CODE(S): R60.0 - Localized edema (6) Other specified peripheral vascular diseases: CODE(S): I73.89 - Other specified peripheral vascular diseases (7) Obesity: CODE(S): E66.9 - Obesity, unspecified QUALIFIERS: Obesity severity: morbid Obesity type: due to excess calories Qualified Code(s): E66.01 - Morbid (severe) obesity due to excess calories PLAN: Plan Patient seen and evaluated Ulceration to the plantar aspect of the right foot underwent debridement as noted in clinical panel above. Ulceration measures 2.6 cm x 2.1 cm x 0.2 cm. No signs of infection. Dakin's wet-to-dry applied to the wound base and dressed with dry sterile dressing. He was placed back into his CAM boot with plantar offloading padding and instructed to remain nonweightbearing to the right foot with the assistance of crutches. He is to change dressing daily. Wound demonstrates continued improvement with reduction in size vs previous visit. Seeking approval for advanced wound care product for application at next visit, awaiting approval from insurance. Will plan for labs including HgbA1c to be obtained for next visit. Previous A1c on record from 12/04/2021 was 6.2%. Radiographs obtained 06/14/2023 negative for osteomyelitis. Venous studies performed 06/14/2023 and are negative for DVT. He does have segmental valvular incompetence noted within the great saphenous veins bilaterally. Accessory saphenous vein in the right mid thigh is incompetent. Accessory saphenous vein in the left mid calf is incompetent. LEAS performed 06/14/2023: LLE?DP artery biphasic, PT artery monophasic; PT and DP PT artery noncompressible. PT artery indices 0.49, left DP indices 0.82, left digital brachial indices 0.74. RLE?right PT artery triphasic. PT and DP noncompressible. Right digital brachial indices 0.47. Interpretation: PVRs diminished at the ankle and digital levels on the left with right undetermined due to noncompressibility of the vasculature at the ankle level on the right. There is evidence of moderate arterial occlusive disease in the lower extremities bilateral. He has been referred to Dr. Harrington and has appointment with him next week. Discussed the importance of continued offloading in CAM boot with plantar offloading padding and to remain nonweightbearing to the right lower extremity with the assistance of crutches to aid in wound healing. Discussed that his foot type with prominent fifth metatarsal base secondary to his foot deformity will continue to create problems with wounds and healing and that he should always remain in diabetic shoe gear with protective offloading inserts. Discussed proper diabetic diet to aid in continued wound healing. Stressed importance of maintaining tight glycemic control to aid in wound healing. Discussed importance of daily foot checks and to never walk barefoot. Discussed socks include barefoot. Discussed adequate protein intake for continued wound healing. Toni supplementation also recommended. Discussed signs and symptoms of infection. Discussed if he notices redness about the wound that spreads on top of the foot or up the leg, if he has any purulent drainage from the wound site, has increasing foul odor to the wound, or if he experiences fever greater than 101 accompanied by nausea, vomiting, fever, chills these are signs of a progressing infection and he should report to the ED for IV antibiotics. He voices understanding of this. The following work up and care recommendations were made: Dressing: Dakin's wet-to-dry dressing and dry sterile dressing, change daily. Wash: Soap and water Tissue growth optimization: Claire's Offload: CAM boot to the right foot with plantar offloading padding. He is to remain nonweightbearing with the assistance of crutches to the right foot Vascular: History of vascular disease. DP and PT pulses were palpable with adequate capillary fill time. Do not feel vascular status is impacting healing at this time. Edema: Recommended Tubigrip compression and following wound healing compression stockings 20 to 30 mmHg. Infection: No signs of infection. Patient currently finishing oral antibiotic course Pain: No pain secondary to diabetic peripheral polyneuropathy. May take [id number] Tylenol Extra Strength as needed for discomfort Host factors: DM type II with peripheral polyneuropathy, cavus foot, excessive pressure, obesity I answered all the patient's questions. To return to the wound healing center in 1 week or call sooner if the patient has any questions or concerns.
[2023-06-30 10:23] VITALS: BP 147/70; PULSE 96; RESP 18; BMI 35.2
[2023-07-07 10:09] VITALS: BP 161/76; PULSE 87; RESP 18; TEMP 36.2; BMI 35.2
--- NOTE | 2023-07-07 10:17 | PCM.WC.PN ---
History of Present Illness Date of Service: 07/07/23 Chief Complaint: left foot ulcers History of Wound: This 57-year-old male presents to the wound care center as referral by his associate web developer Dr. Enciso for plantar right foot ulceration. He has PMHx of bilateral foot wounds, partial fifth ray resection right foot, DM type II with peripheral polyneuropathy, cavovarus deformity right foot, chronic venous insufficiency, lower extremity edema, HTN, obesity. He states he did receive new shoes for [place] and 2 days later on May 04, 2023 states that he had new wound development to the plantar aspect of the fifth metatarsal base of the right foot. He states he feels that shoes were too tight. He does have peripheral polyneuropathy and did not notice they were too tight until wound developed. He did go to urgent care and received 7-day course of doxycycline. He did finish antibiotic course to completion and followed up with his associate web developer in office and underwent debridement with Betadine to the wound margin and Aquacel to the wound base. He was dressed and dry sterile dressing and offloading in CAM boot and has remained nonweightbearing with the assistance of crutches. At this time he was urged to go to hospital for further treatment given history of infection and amputation however he did refuse at this time and requested evaluation at the wound care center. He was thus started on Augmentin and Cipro and is currently finishing oral antibiotic course. He states he is continue to remain nonweightbearing and changing dressings daily. He currently denies N/V/F/chills. Denies further complaints. Subjective Subjective Patient is a 58-year-old male who follows to the wound care center today for continued care of plantar subfifth metatarsal ulceration of the right foot. He continues to offloading CAM boot and has attempted to remain nonweightbearing with crutches. He does state difficulty with a nonweightbearing status at all times. He has continued to change dressings daily with Dakins. States ulcer is improving and getting smaller. Denies constitutional symptoms. Denies further complaints. Objective Data Objective Data Vital Signs: Vital Signs Temp Pulse Resp BP O2 Del Method 97.2 F L 87 18 161/76 H Room Air 07/07/23 10:07/07/23 10:07/07/23 10:07/07/23 10:09 07/07/23 10:09 Oxygen Delivery Method Room Air Weight: 124.284 kg Body Mass Index (BMI) 35.2 Physical Exam Const alert, oriented x3, no apparent distress and well nourished General Appearance: cooperative HEENT normocephalic Eyes General Eye: normal appearance of both eyes Neck General: normal visual inspection Lymph Lymphatic: no lymphadenopathy noted and no lymphedema noted Resp normal respiratory effort Cardio regular rate and regular rhythm Extremity normal capillary refill, no joint enlargement, no calf tenderness and no pedal edema Extremity Narrative: DP and PT pulses palpable. CFT less than 4 seconds to the digits. There is mild nonpitting edema about foot and ankle. Dermatological: There is a ulceration noted to the plantar aspect of the right foot subfifth metatarsal base/styloid process secondary to cavovarus deformity of the foot and continued pressure. Ulceration demonstrates fibrogranular base with serosanguineous drainage and surrounding hyperkeratosis secondary to previous blister. No purulent drainage, no erythema, no malodor, no lymphangitic streaking, no palpable fluctuance/bogginess noted, no visible abscess formation. Musculoskeletal: Muscle strength 5 of 5 age-appropriate. Prominent styloid process fifth metatarsal base with cavovarus foot deformity. Partial fifth Ray resection right foot. There is decreased range of motion of the ankle joint dorsiflexion decreased range of motion of the first metatarsophalangeal joint without pain or crepitus. Skin no rashes or lesions noted, skin turgor normal and no jaundice Neuro moves all extremities Debridement Note Debridement Note Wound debrided: Subfifth metatarsal base Laterality: Right Wound Grade/Stage: Francois stage I Type of Debridement: Excisional debridement Anesthesia Used: 5% Lidocaine Gel Depth: Down to and including healthy tissue and in the subcutaneous layer Percentage of wound debrided: 100 Instrument Used: 5mm curette Tissue Removed: Fibrous, devitalized subcutaneous, biofilm, slough Severity: Fat Layer Exposed Amount of bleeding with debridement: Mild Bleeding Controlled with: Compression and gauze Patient tolerated procedure: Patient tolerated procedure well Post-Debridement Measurements and Additional Note: Post-Debridement Measurements/Treatment LC - Nurse 1 - General Ulcer Assessment Start: 06/09/23 08:59 Freq: Status: Active Protocol: LIZZETTE Activity Type Activity Date Activity User E-sign Co-sign Detail Recorded Client Recorded Date Recorded By Document 06/09/23 09:07 KW Desktop 06/09/23 09:22 KW Document 06/16/23 10:33 JF Laptop 06/16/23 10:42 JF Document 06/23/23 10:01 DL Desktop 06/23/23 10:05 DL Document 06/30/23 10:23 KW Desktop 06/30/23 10:28 KW Document 07/07/23 10:09 JF Laptop 07/07/23 10:12 JF 06/09/23 06/16/23 06/23/23 09:07 10:33 10:01 WC - Today's Visit Information Type of service Initial Visit Follow-up Visit Follow-up Visit (Physician/LOCKSTITCH POCKET SETTER (Physician/LOCKSTITCH POCKET SETTER ) ) Arrival Mode Ambulatory, Ambulatory, Ambulatory Crutches Crutches Transfer Assistance None Patient Identification Verified (Name & Yes Yes Yes ) Patient Requires Transmission-Based No No Precautions Finger Stick Blood Sugar(mg/dl) (if 175 154 140 indicated): Blood Sugar Stated by Stated by Stated by Patient Patient Patient Height and Weight Height 6 ft 2 in Weight 124.284 kg Weight in Pounds 274.0 lbs Weight Measurement Method Estimated by Patient Body Mass Index (BMI) 35.2 35.2 35.2 BMI Classification Obese Obese Obese BSA - Ibrahima 2.48 Vital Signs Temperature (97.8 F-99.1 F) 97.6 F L 97.1 F L Temperature Source Temporal Temporal Pulse Rate (60-100) 101 H 106 H 97 Pulse Location Monitor Monitor Monitor Respiratory Rate (12-18) 18 16 20 H Respiratory rate source Observation Observation Observation Oxygen Delivery Method Room Air Blood Pressure (90/60-120/80) 155/83 H 133/68 H 144/73 H Blood Pressure Mean (mm Hg) 107 89 96 Source Monitor Monitor Monitor Position Sitting Semi-Fowlers Blood Pressure Location Left Arm Right Arm History Since Last Visit- (Skip if this is Patient's initial visit) Have you changed medications since your No No last visit? Any new allergies or adverse reactions No No Had a fall/change in ADL's that may No increase risk of falls Signs or symptoms of abuse and/or No neglect since last visit Have you been in the hospital since your No No last visit? Has dressing in place as prescribed Yes Yes Has compression in place as prescribed N/A N/A Has offloadiing in place as prescribed Yes Yes Experienced any changes in pain level or No No management Left Footwear Regular Shoe Regular Shoe Regular Shoe Right Footwear Removable Cast Removable Cast Surgical Shoe Walker/Walking Walker/Walking with pressure Boot Boot relief insole Pain Scale: 0-10 Numeric Is Patient Pain Free? Yes Yes Yes Lower Extremity Assessment/ Foot Assessment/ Toe Nail Assessment Right -Posterior Tibial Palpable Yes -Posterior Tibial Doppler Multiphasic -Dorsalis Pedis Palpable Yes -Dorsalis Pedis Doppler Multiphasic -Hair Growth on Legs No -Hair Growth on Toes No -Temperature of Extremity Warm -Capillary Refill Less than 3 Seconds -Thick Yes -Discolored Yes Left -Posterior Tibial Doppler Monophasic -Dorsalis Pedis Doppler Inaudible -Temperature of Extremity Warm -Capillary Refill Less than 3 Seconds -Thick Yes -Discolored Yes Communication Assessment Preferred language Jordanian Able to Read Yes Able to Write Yes Communication Tools None Caregiver Communication Skills No Impairment Impairment Right Hearing Abillity Normal Left Hearing Abillity Normal Visual Assistive Devices None Teaching Assessment Preferences Verbal,Written, Demonstration Barriers to Learning None Readiness To Learn Excellent Willingness to Engage in Self Management High Activies Readiness to Engage in Self Management High Activities Anxiety Level Calm Cooperation Cooperative Perception Coherent Interest in Health Problem Asks Questions Education Importance Acknowledges Need Does Patient Smoke tobacco or other Yes substances Smoking Status Never smoker Is Patient Diabetic Yes Functional Assessment Recent Decline in Ability to Perform Denies Any Declines Culture/Episcopal/[employer] [place] Cultural/Episcopal Needs that may affect No Treatment Plan Would you allow our hospital integrated circuit layout designer to No meet you for the purpose of spiritual/ emotional support? [employer]yer to contact place of episcopal No 06/30/23 07/07/23 10:23 10:09 - Today's Visit Information Type of service Initial Visit Follow-up Visit (Physician/LOCKSTITCH POCKET SETTER ) Arrival Mode Ambulatory, Ambulatory, Crutches Crutches Transfer Assistance Patient Identification Verified (Name & Yes Yes ) Patient Requires Transmission-Based Precautions Finger Stick Blood Sugar(mg/dl) (if 113 indicated): Blood Sugar Stated by Patient Height and Weight Height Weight Weight in Pounds Weight Measurement Method Body Mass Index (BMI) 35.2 35.2 BMI Classification Obese Obese BSA - Ibrahima Vital Signs Temperature (97.8 F-99.1 F) 97.2 F L Temperature Source Temporal Pulse Rate (60-100) 96 87 Pulse Location Monitor Monitor Respiratory Rate (12-18) 18 18 Respiratory rate source Observation Observation Oxygen Delivery Method Room Air Room Air Blood Pressure (90/60-120/80) 147/70 H 161/76 H Blood Pressure Mean (mm Hg) 95 104 Source Monitor Position Semi-Fowlers Blood Pressure Location Left Arm History Since Last Visit- (Skip if this is Patient's initial visit) Have you changed medications since your No No last visit? Any new allergies or adverse reactions No No Had a fall/change in ADL's that may No No increase risk of falls Signs or symptoms of abuse and/or No No neglect since last visit Have you been in the hospital since your No No last visit? Has dressing in place as prescribed Yes Yes Has compression in place as prescribed N/A Yes Has offloadiing in place as prescribed Yes Yes Experienced any changes in pain level or No No management Left Footwear Regular Shoe Regular Shoe Right Footwear Removable Cast Removable Cast Walker/Walking Walker/Walking Boot Boot Pain Scale: 0-10 Numeric Is Patient Pain Free? Yes Yes Lower Extremity Assessment/ Foot Assessment/ Toe Nail Assessment Right -Posterior Tibial Palpable -Posterior Tibial Doppler -Dorsalis Pedis Palpable -Dorsalis Pedis Doppler -Hair Growth on Legs -Hair Growth on Toes -Temperature of Extremity -Capillary Refill -Thick -Discolored Left -Posterior Tibial Doppler -Dorsalis Pedis Doppler -Temperature of Extremity -Capillary Refill -Thick -Discolored Communication Assessment Preferred language Able to Read Able to Write Communication Tools Caregiver Communication Skills Impairment Right Hearing Abillity Left Hearing Abillity Visual Assistive Devices Teaching Assessment Preferences Barriers to Learning Readiness To Learn Willingness to Engage in Self Management Activies Readiness to Engage in Self Management Activities Anxiety Level Cooperation Perception Interest in Health Problem Education Importance Does Patient Smoke tobacco or other substances Smoking Status Is Patient Diabetic Functional Assessment Recent Decline in Ability to Perform Culture/Episcopal/[employer] [place] Cultural/Episcopal Needs that may affect Treatment Plan Would you allow our hospital integrated circuit layout designer to meet you for the purpose of spiritual/ emotional support? [employer] [place]yer to contact place of episcopal WC - Nurse 1 - General Ulcer Measurement Start: 06/09/23 08:59 Freq: Status: Active Protocol: Activity Type Activity Date Activity User E-sign Co-sign Detail Recorded Client Recorded Date Recorded By Document 06/09/23 09:07 KW Desktop 06/09/23 09:22 KW Document 06/16/23 10:33 JF Laptop 06/16/23 10:42 JF Document 06/23/23 10:01 DL Desktop 06/23/23 10:05 DL Document 06/30/23 10:23 KW Desktop 06/30/23 10:28 KW Document 07/07/23 10:09 JF Laptop 07/07/23 10:12 JF 06/09/23 06/16/23 06/23/23 09:07 10:33 10:01 Wound Center Nurse 1 #15 RT LAT FT -Combined with other wound No -Current Size (cm) - Length 2.8 2.8 2.7 -Current Size (cm) - Width 2.5 2.6 2 -Current Size (cm) - Depth 0.1 0.1 0.1 -Total Square Cm 7.00 7.28 5.4 -Date of Last Picture (Recall this 06/09/23 field) -Photo Taken Yes Yes -Epithelialization Small 1-33% -Tunneling No -Undermining/Tunneling No -Circular Undermining No -Exudate Amt Large Medium Medium -Exudate Type Serosanguineous Serosanguineous Serosanguineous -Wound Margin Distinct, Flat & Intact Distinct, Outline Outline Attached Attached -Granulation Amt Large (67-100%) Large (67-100%) Large (67-100%) -Granulation Quality Red Red Red -Slough/Fibrin Yes -Necrosis Amt Medium (34-66%) Small (1-33%) None Present (0 %) -Necrotic Tissue Type Adherent Slough Adherent Slough -Structure Exposed N/A N/A -Texture (Susana-wound Skin Appearance) Assessed,Callus Assessed,Callus Callus, ,Localized Localized Edema Edema ,Scarring -Moisture (Susana-wound Skin Appearance) Assessed Assessed,Dry/ Maceration Scaly -Color (Susana-wound Skin Appearance) Assessed Assessed No Abnormality -Temperature (Susana-wound Skin No Abnormality No Abnormality No Abnormality Appearance) (Pt Warm) (Pt Warm) (Pt Warm) -Ulcer Cleansing Soap and Water Wound Cleanser Soap and Water -Foul Odor after Cleansing No No No -Anesthetic Used 5% Lidocaine 5% Lidocaine 5% Lidocaine Gel Gel Gel Lower Limb Edema Present NA 06/30/23 07/07/23 10:23 10:09 Wound Center Nurse 1 #15 RT LAT FT -Combined with other wound -Current Size (cm) - Length 2.3 2.4 -Current Size (cm) - Width 1.7 1.5 -Current Size (cm) - Depth 0.1 0.1 -Total Square Cm 3.91 3.60 -Date of Last Picture (Recall this 07/07/23 field) -Photo Taken Yes -Epithelialization -Tunneling -Undermining/Tunneling -Circular Undermining -Exudate Amt Small Small -Exudate Type Serosanguineous Serosanguineous -Wound Margin Distinct, Distinct, Outline Outline Attached Attached -Granulation Amt Large (67-100%) Large (67-100%) -Granulation Quality Red Red -Slough/Fibrin -Necrosis Amt -Necrotic Tissue Type -Structure Exposed -Texture (Susana-wound Skin Appearance) Assessed Assessed -Moisture (Susana-wound Skin Appearance) Maceration Maceration -Color (Susana-wound Skin Appearance) Assessed Assessed -Temperature (Susana-wound Skin No Abnormality No Abnormality Appearance) (Pt Warm) (Pt Warm) -Ulcer Cleansing Rinsed/ Soap and Water Irrigated with Saline -Foul Odor after Cleansing -Anesthetic Used 5% Lidocaine 5% Lidocaine Gel Gel Lower Limb Edema Present WC - Nurse 2 - General Ulcer CM Notes Start: 06/09/23 08:59 Freq: Status: Active Protocol: Activity Type Activity Date Activity User E-sign Co-sign Detail Recorded Client Recorded Date Recorded By Document 06/09/23 10:31 PL Tablet 06/09/23 10:32 PL Document 06/16/23 13:15 PL [id number] 06/16/23 13:16 PL Document 06/23/23 11:40 PL [id number] 06/23/23 11:40 PL Document 06/30/23 16:02 PL [id number] 06/30/23 16:03 PL 06/09/23 06/16/23 06/23/23 10:31 13:15 11:40 Wound Center Nurse 2 #15 RT LAT FT -Time 09:30 11:05 10:14 -Correct Patient Yes Yes Yes -Correct Side, Site, Position Yes Yes Yes -Correct Procedure Yes Yes Yes -Procedure Performed Yes Yes Yes -Type of Procedure Debridement Debridement Debridement -Clinical Debridement Subcutaneous Subcutaneous Subcutaneous -Tissue Removed Subcutaneous Subcutaneous Subcutaneous -Post Debridement (cm) - Length 3.0 3.0 2.8 -Post Debridement (cm) - Width 3.2 3.0 2.5 -Post Debridement (cm) - Depth 0.2 0.1 0.1 -Total Square (Post) (cm) 9.60 9.00 7.00 -Area of Debridement (cm) - Length 3.0 3.0 2.8 -Area of Debridement (cm) - Width 3.2 3.0 2.5 -Total Square (Area) (cm) 9.60 9.00 7.00 -Tunneling No No No -Undermining/Tunneling No No No -Circular Undermining No No No -Wound/Ulcer Outcome Not Healed Not Healed Not Healed -Ulcer Cleansing Rinsed/ Rinsed/ Rinsed/ Irrigated with Irrigated with Irrigated with Saline Saline Saline -Foul Odor after Cleansing No No No -Bioengineered Tissue No No No -Bleeding Controlled with Pressure Pressure Pressure -Treatment Response Procedure Procedure Procedure Tolerated Well Tolerated Well Tolerated Well -Debridement - Subq, 1st 20sq cm Yes Yes Yes Pain Scale: 0-10 Numeric Is Patient Pain Free? Yes Yes Yes 06/30/23 16:02 Wound Center Nurse 2 #15 RT LAT FT -Time 11:27 -Correct Patient Yes -Correct Side, Site, Position Yes -Correct Procedure Yes -Procedure Performed Yes -Type of Procedure Debridement -Clinical Debridement Subcutaneous -Tissue Removed Subcutaneous -Post Debridement (cm) - Length 2.6 -Post Debridement (cm) - Width 2.1 -Post Debridement (cm) - Depth 0.1 -Total Square (Post) (cm) 5.46 -Area of Debridement (cm) - Length 2.6 -Area of Debridement (cm) - Width 2.1 -Total Square (Area) (cm) 5.46 -Tunneling No -Undermining/Tunneling No -Circular Undermining No -Wound/Ulcer Outcome Not Healed -Ulcer Cleansing Rinsed/ Irrigated with Saline -Foul Odor after Cleansing No -Bioengineered Tissue No -Bleeding Controlled with Pressure -Treatment Response Procedure Tolerated Well -Debridement - Subq, 1st 20sq cm Yes Pain Scale: 0-10 Numeric Is Patient Pain Free? Yes - Nurse 3 - General Ulcer D/C NN Start: 06/09/23 08:59 Freq: Status: Active Protocol: Activity Type Activity Date Activity User E-sign Co-sign Detail Recorded Client Recorded Date Recorded By Document 06/09/23 09:57 DL Desktop 06/09/23 10:03 DL Document 06/16/23 11:12 KW Desktop 06/16/23 11:13 KW Document 06/23/23 10:35 DL Desktop 06/23/23 10:37 DL Document 06/30/23 11:36 KW Desktop 06/30/23 11:36 KW 06/09/23 06/16/23 06/23/23 09:57 11:12 10:35 Wound Care Center Nurse 3 #15 RT LAT FT -Ulcer Cleansing Soap and Water Rinsed/ Irrigated with Saline -Foul Odor after Cleansing No No -Primary Dressing Applied Promogran Padma Matter -Other Dressing dakins -Primary Dressing Covered/Secured with Dry Gauze & Dry Gauze & Dry Gauze & Roll Gauze, Roll Gauze, Roll Gauze, Secured with Secured with Secured with Tape Tape Tape -Promogran Padma Matter 2 Treatment Response Procedure Procedure Tolerated Well Tolerated Well Pain Scale: 0-10 Numeric Is Patient Pain Free? Yes Yes Yes WC - Visit Discharge Discharge Condition Stable Stable Stable Ambulatory Status Ambulatory Ambulatory Ambulatory, Crutches Transportation Private Auto Private Auto Private Auto Medication Reconcilliation completed & No provided to patient/care provider Clinical Summary of Care Provided Yes 06/30/23 11:36 Wound Care Center Nurse 3 #15 RT LAT FT -Ulcer Cleansing -Foul Odor after Cleansing -Primary Dressing Applied -Other Dressing -Primary Dressing Covered/Secured with Dry Gauze & Roll Gauze, Secured with Tape -Promogran Padma Matter Treatment Response Pain Scale: 0-10 Numeric Is Patient Pain Free? Yes WC - Visit Discharge Discharge Condition Stable Ambulatory Status Ambulatory, Crutches Transportation Private Auto Medication Reconcilliation completed & No provided to patient/care provider Clinical Summary of Care Provided Yes Assessment/Plan Assessment/Plan (1) Ulcer of right foot with fat layer exposed: CODE(S): L97.512 - Non-pressure chronic ulcer of other part of right foot with fat layer exposed (2) Type 2 diabetes mellitus with diabetic polyneuropathy: CODE(S): E11.42 - Type 2 diabetes mellitus with diabetic polyneuropathy (3) Type 2 diabetes mellitus with foot ulcer: CODE(S): E11.621 - Type 2 diabetes mellitus with foot ulcer; L97.509 - Non-pressure chronic ulcer of other part of unspecified foot with unspecified severity (4) Venous insufficiency: CODE(S): I87.2 - Venous insufficiency (chronic) (peripheral) (5) Leg edema: CODE(S): R60.0 - Localized edema (6) Other specified peripheral vascular diseases: CODE(S): I73.89 - Other specified peripheral vascular diseases (7) Obesity: CODE(S): E66.9 - Obesity, unspecified QUALIFIERS: Obesity severity: morbid Obesity type: due to excess calories Qualified Code(s): E66.01 - Morbid (severe) obesity due to excess calories PLAN: Plan Patient seen and evaluated Ulceration to the plantar aspect of the right foot underwent debridement as noted in clinical panel above. Ulceration measures 2.4 cm x 1.8 cm x 0.1 cm. No signs of infection. Dakin's wet-to-dry applied to the wound base and dressed with dry sterile dressing. He was placed back into his CAM boot with plantar offloading padding and instructed to remain nonweightbearing to the right foot with the assistance of crutches. He is to change dressing daily. Wound demonstrates continued improvement with reduction in size vs previous visit. Seeking approval for advanced wound care product for application at next visit, still awaiting approval from insurance. Labs ordered including HgbA1c, patient has not obtained. This was discussed to get this done. Previous A1c on record from 12/04/2021 was 6.2%. Radiographs obtained 06/14/2023 negative for osteomyelitis. Venous studies performed 06/14/2023 and are negative for DVT. He does have segmental valvular incompetence noted within the great saphenous veins bilaterally. Accessory saphenous vein in the right mid thigh is incompetent. Accessory saphenous vein in the left mid calf is incompetent. LEAS performed 06/14/2023: LLE?DP artery biphasic, PT artery monophasic; PT and DP PT artery noncompressible. PT artery indices 0.49, left DP indices 0.82, left digital brachial indices 0.74. RLE?right PT artery triphasic. PT and DP noncompressible. Right digital brachial indices 0.47. Interpretation: PVRs diminished at the ankle and digital levels on the left with right undetermined due to noncompressibility of the vasculature at the ankle level on the right. There is evidence of moderate arterial occlusive disease in the lower extremities bilateral. He has been referred to Dr. Harrington and has appointment with him next week. Discussed the importance of continued offloading in CAM boot with plantar offloading padding and to remain nonweightbearing to the right lower extremity with the assistance of crutches to aid in wound healing. Discussed that his foot type with prominent fifth metatarsal base secondary to his foot deformity will continue to create problems with wounds and healing and that he should always remain in diabetic shoe gear with protective offloading inserts. Discussed proper diabetic diet to aid in continued wound healing. Stressed importance of maintaining tight glycemic control to aid in wound healing. Discussed importance of daily foot checks and to never walk barefoot. Discussed socks include barefoot. Discussed adequate protein intake for continued wound healing. Toni supplementation also recommended. Discussed signs and symptoms of infection. Discussed if he notices redness about the wound that spreads on top of the foot or up the leg, if he has any purulent drainage from the wound site, has increasing foul odor to the wound, or if he experiences fever greater than 101 accompanied by nausea, vomiting, fever, chills these are signs of a progressing infection and he should report to the ED for IV antibiotics. He voices understanding of this. The following work up and care recommendations were made: Dressing: Dakin's wet-to-dry dressing and dry sterile dressing, change daily. Wash: Soap and water Tissue growth optimization: Dakin's Offload: CAM boot to the right foot with plantar offloading padding. He is to remain nonweightbearing with the assistance of crutches to the right foot Vascular: History of vascular disease. DP and PT pulses were palpable with adequate capillary fill time. Do not feel vascular status is impacting healing at this time. Edema: Recommended Tubigrip compression and following wound healing compression stockings 20 to 30 mmHg. Infection: No signs of infection. Patient currently finishing oral antibiotic course Pain: No pain secondary to diabetic peripheral polyneuropathy. May take [id number] Tylenol Extra Strength as needed for discomfort Host factors: DM type II with peripheral polyneuropathy, cavus foot, excessive pressure, obesity I answered all the patient's questions. To return to the wound healing center in 1 week or call sooner if the patient has any questions or concerns.
--- NOTE | 2023-07-15 13:27 | WC ---
2.29.24 RT LAT FT
== END 2023-07-07 23:59 | disposition home or self-care (01) ==
LOC: WC 10:15
PROVIDERS: PCP Student in an Organized Health Care Education/Training Program; Referring Provider Podiatrist Foot & Ankle Surgery; Visit Provider Student in an Organized Health Care Education/Training Program
DX: E11.621 Type 2 diabetes mellitus with foot ulcer (principal); E11.51 Type 2 diabetes mellitus with diabetic peripheral angiopathy without gangrene; L97.412 Non-pressure chronic ulcer of right heel and midfoot with fat layer exposed; E11.42 Type 2 diabetes mellitus with diabetic polyneuropathy; E66.01 Morbid (severe) obesity due to excess calories; Z79.4 Long term (current) use of insulin; I10 Essential (primary) hypertension; I87.2 Venous insufficiency (chronic) (peripheral); R60.0 Localized edema; Z79.82 Long term (current) use of aspirin; Z79.899 Other long term (current) drug therapy; Z68.35 Body mass index [BMI] 35.0-35.9, adult
CPT/HCPCS: 11042; 73630; 93923; 93970; 99213; G0463

== ENCOUNTER 2023-08-04 10:15 | Outpatient (RCR) | payer OTHER, SELFPAY ==
[2023-07-08 00:22] VITALS: BP 161/76; PULSE 87; RESP 18; TEMP 36.2; BMI 35.2
--- NOTE | 2023-07-14 10:55 | PN.PCM_ITS ---
History of Present Illness Date of Service: 07/14/23 Chief Complaint: left foot ulcers History of Wound: This 57-year-old male presents to the wound care center as referral by his director digital advertising Dr. Enciso for plantar right foot ulceration. He has PMHx of bilateral foot wounds, partial fifth ray resection right foot, DM type II with peripheral polyneuropathy, cavovarus deformity right foot, chronic venous insufficiency, lower extremity edema, HTN, obesity. He states he did receive new shoes for Rohith and 2 days later on May 04, 2023 states that he had new wound development to the plantar aspect of the fifth metatarsal base of the right foot. He states he feels that shoes were too tight. He does have peripheral polyneuropathy and did not notice they were too tight until wound developed. He did go to urgent care and received 7-day course of doxycycline. He did finish antibiotic course to completion and followed up with his director digital advertising in office and underwent debridement with Betadine to the wound margin and Aquacel to the wound base. He was dressed and dry sterile dressing and offloading in CAM boot and has remained nonweightbearing with the assistance of crutches. At this time he was urged to go to hospital for further treatment given history of infection and amputation however he did refuse at this time and requested evaluation at the wound care center. He was thus started on Augmentin and Cipro and is currently finishing oral antibiotic course. He states he is c ontinue to remain nonweightbearing and changing dressings daily. He currently denies N/V/F/chills. Denies further complaints. Subjective Subjective Patient is a 58-year-old male who follows to the wound care center today for continued care of plantar subfifth metatarsal ulceration of the right foot. He continues to offloading CAM boot and has attempted to remain nonweightbearing with crutches. He does state difficulty with a nonweightbearing status at all times. He has continued to change dressings daily with Dakins. States ulcer is improving and getting smaller. Denies constitutional symptoms. Denies further complaints. Objective Data Objective Data Vital Signs: Vital Signs Temp Pulse Resp BP 97.2 F L 87 18 161/76 H 07/08/23 00:22 07/08/23 00:22 07/08/23 00:22 07/08/23 00:22 Weight: 124.284 kg Body Mass Index (BMI) 35.2 Physical Exam Const alert, oriented x3, no apparent distress and well nourished General Appearance: cooperative HEENT normocephalic Eyes General Eye: normal appearance of both eyes Neck General: normal visual inspection Lymph Lymphatic: no lymphadenopathy noted and no lymphedema noted Resp normal respiratory effort Cardio regular rate and regular rhythm Extremity normal capillary refill, no joint enlargement, no calf tenderness and no pedal edema Extremity Narrative: DP and PT pulses palpable. CFT less than 4 seconds to the digits. There is mild nonpitting edema about foot and ankle. Dermatological: There is a ulceration noted to the plantar aspect of the right foot subfifth metatarsal base/styloid process secondary to cavovarus deformity of the foot and continued pressure. Ulceration demonstrates fibrogranular base with serosanguineous drainage and surrounding hyperkeratosis secondary to pr evious blister. No purulent drainage, no erythema, no malodor, no lymphangitic streaking, no palpable fluctuance/bogginess noted, no visible abscess formation. Musculoskeletal: Muscle strength 5 of 5 age-appropriate. Prominent styloid process fifth metatarsal base with cavovarus foot deformity. Partial fifth Ray resection right foot. There is decreased range of motion of the ankle joint dorsiflexion decreased range of motion of the first metatarsophalangeal joint without pain or crepitus. Skin no rashes or lesions noted, skin turgor normal and no jaundice Neuro moves all extremities Debridement Note Debridement Note Wound debrided: Right foot subfifth metatarsal base Laterality: Right Wound Grade/Stage: Francois stage I Type of Debridement: Excisional debridement Anesthesia Used: 5% Lidocaine Gel Depth: Down to and including healthy tissue and in the subcutaneous layer Percentage of wound debrided: 100 Instrument Used: 5mm curette Tissue Removed: Fibrous, devitalized subcutaneous, biofilm, slough Severity: Fat Layer Exposed Amount of bleeding with debridement: Mild Bleeding Controlled with: Compression and gauze Patient tolerated procedure: Patient tolerated procedure well Assessment/Plan Assessment/Plan (1) Ulcer of right foot with fat layer exposed: CODE(S): L97.512 - Non-pressure chronic ulcer of other part of right foot with fat layer exposed (2) Type 2 diabetes mellitus with diabetic polyneuropathy: CODE(S): E11.42 - Type 2 diabetes mellitus with diabetic polyneuropathy (3) Type 2 diabetes mellitus with foot ulcer: CODE(S): E11.621 - Type 2 diabetes mellitus with foot ulcer; L97.509 - Non-pressure chronic ulcer of other part of unspecified foot with unspecified severity (4) Venous insufficiency: CODE(S): I87.2 - Venous insufficiency (chronic) (peripheral) (5) Other specified peripheral vascular diseases: CODE(S): I73.89 - Other specified peripheral vascular diseases (6) Leg edema: CODE(S): R60.0 - Localized edema PLAN: Plan Patient seen and evaluated Ulceration to the plantar aspect of the right foot underwent debridement as noted in clinical panel above. Ulceration measures 2.0 cm x 1.5 cm x 0.1 cm. No signs of infection. Dakin's wet-to-dry applied to the wound base and dressed with dry sterile dressing. He was placed back into his CAM boot with plantar offloading padding and instructed to remain nonweightbearing to the right foot with the assistance of crutches. He is to change dressing daily. Wound demonstrates continued improvement with reduction in size vs previous visit. Seeking approval for advanced wound care product for application at next visit, still awaiting approval from insurance. Labs ordered including HgbA1c, patient has not obtained. This was discussed to get this done. Previous A1c on record from 12/04/2021 was 6.2%. Radiographs obtained 06/14/2023 negative for osteomyelitis. Venous studies performed 06/14/2023 and are negative for DVT. He does have segmental valvular incompetence noted within the great saphenous veins bilaterally. Accessory saphenous vein in the right mid thigh is incompetent. Accessory saphenous vein in the left mid calf is incompetent. LEAS performed 06/14/2023: LLE?DP artery biphasic, PT artery monophasic; PT and DP PT artery noncompressible. PT artery indices 0.49, left DP indices 0.82, left digital brachial indices 0.74. RLE?right PT artery triphasic. PT and DP noncompressible. Right digital brachial indices 0.47. Interpretation: PVRs diminished at the ankle and digital levels on the left with right undetermined due to noncompressibility of the vasculature at the ankle level on the right. There is evidence of moderate arterial occlusive disease in the lower extremities bilateral. He has been referred to Dr. Harrington and has appointment with him next week. Discussed the importance of continued offloading in CAM boot with plantar offloading padding and to remain nonweightbearing to the right lower extremity with the assistance of crutches to aid in wound healing. Discussed that his foot type with prominent fifth metatarsal base secondary to his foot deformity will continue to create problems with wounds and healing and that he should always remain in diabetic shoe gear with protective offloading inserts. Discussed proper diabetic diet to aid in continued wound healing. Stressed importance of maintaining tight glycemic control to aid in wound healing. Discussed importance of daily foot checks and to never walk barefoot. Discussed socks include barefoot. Discussed adequate protein intake for continued wound healing. Toni supplementation also recommended. Discussed signs and symptoms of infection. Discussed if he notices redness about the wound that spreads on top of the foot or up the leg, if he has any purulent drainage from the wound site, has increasing foul odor to the wound, or if he experiences fever greater than 101 accompanied by nausea, vomiting, fever, chills these are signs of a progressing infection and he should report to the ED for IV antibiotics. He voices understanding of this. The following work up and care recommendations were made: Dressing: Dakin's wet-to-dry dressing and dry sterile dressing, change daily. Wash: Soap and water Tissue growth optimization: Dakin's Offload: CAM boot to the right foot with plantar offloading padding. He is to remain nonweightbearing with the assistance of crutches to the right foot Vascular: History of vascular disease. DP and PT pulses were palpable with adequate capillary fill time. Do not feel vascular status is impacting healing at this time. Edema: Recommended Tubigrip compression and following wound healing compression stockings 20 to 30 mmHg. Infection: No signs of infection. Patient currently finishing oral antibiotic course Pain: No pain secondary to diabetic peripheral polyneuropathy. May take [id number] Tylenol Extra Strength as needed for discomfort Host factors: DM type II with peripheral polyneuropathy, cavus foot, excessive pressure, obesity I answered all the patient's questions. To return to the wound healing center in 1 week or call sooner if the patient has any questions or concerns.
[2023-07-14 10:58] VITALS: BP 136/72; PULSE 104; RESP 18; TEMP 35.8; BMI 35.2
[2023-07-21 10:12] VITALS: BP 162/81; PULSE 88; RESP 16; TEMP 36.1; BMI 35.2
--- NOTE | 2023-07-21 10:23 | PCM.WC.PN ---
History of Present Illness Date of Service: 07/21/23 Chief Complaint: left foot ulcers History of Wound: This 57-year-old male presents to the wound care center as referral by his analytic manager Dr. Enciso for plantar right foot ulceration. He has PMHx of bilateral foot wounds, partial fifth ray resection right foot, DM type II with peripheral polyneuropathy, cavovarus deformity right foot, chronic venous insufficiency, lower extremity edema, HTN, obesity. He states he did receive new shoes for Rohith and 2 days later on May 04, 2023 states that he had new wound development to the plantar aspect of the fifth metatarsal base of the right foot. He states he feels that shoes were too tight. He does have peripheral polyneuropathy and did not notice they were too tight until wound developed. He did go to urgent care and received 7-day course of doxycycline. He did finish antibiotic course to completion and followed up with his analytic manager in office and underwent debridement with Betadine to the wound margin and Aquacel to the wound base. He was dressed and dry sterile dressing and offloading in CAM boot and has remained nonweightbearing with the assistance of crutches. At this time he was urged to go to hospital for further treatment given history of infection and amputation however he did refuse at this time and requested evaluation at the wound care center. He was thus started on Augmentin and Cipro and is currently finishing oral antibiotic course. He states he is continue to remain nonweightbearing and changing dressings daily. He currently denies N/V/F/chills. Denies further complaints. Subjective Subjective Patient is a 58-year-old male who follows to the wound care center today for continued care of plantar subfifth metatarsal ulceration of the right foot. He continues to offloading CAM boot and has attempted to remain nonweightbearing with crutches. He does state difficulty with a nonweightbearing status at all times. He has continued to change dressings daily with Dakins. States ulcer is improving and getting smaller. Denies constitutional symptoms. Denies further complaints. Objective Data Objective Data Vital Signs: Vital Signs Temp Pulse Resp BP O2 Del Method 96.9 F L 88 16 162/81 H Room Air 07/21/23 10:12 07/21/23 10:12 07/21/23 10:12 07/21/23 10:12 07/21/23 10:12 Oxygen Delivery Method Room Air Weight: 124.284 kg Body Mass Index (BMI) 35.2 Physical Exam Const alert, oriented x3, no apparent distress and well nourished General Appearance: cooperative HEENT normocephalic Eyes General Eye: normal appearance of both eyes Neck General: normal visual inspection Lymph Lymphatic: no lymphadenopathy noted and no lymphedema noted Resp normal respiratory effort Cardio regular rate and regular rhythm Extremity normal capillary refill, no joint enlargement, no calf tenderness and no pedal edema Extremity Narrative: DP and PT pulses palpable. CFT less than 4 seconds to the digits. There is mild nonpitting edema about foot and ankle. Dermatological: There is a ulceration noted to the plantar aspect of the right foot subfifth metatarsal base/styloid process secondary to cavovarus deformity of the foot and continued pressure. Ulceration demonstrates fibrogranular base with serosanguineous drainage and surrounding hyperkeratosis secondary to previous blister. No purulent drainage, no erythema, no malodor, no lymphangitic streaking, no palpable fluctuance/bogginess noted, no visible abscess formation. Musculoskeletal: Muscle strength 5 of 5 age-appropriate. Prominent styloid process fifth metatarsal base with cavovarus foot deformity. Partial fifth Ray resection right foot. There is decreased range of motion of the ankle joint dorsiflexion decreased range of motion of the first metatarsophalangeal joint without pain or crepitus. Skin no rashes or lesions noted, skin turgor normal and no jaundice Neuro moves all extremities Debridement Note Debridement Note Wound debrided: Subfifth metatarsal base right foot Laterality: Right Wound Grade/Stage: Francois stage I Type of Debridement: Excisional debridement Anesthesia Used: 5% Lidocaine Gel Depth: Down to and including healthy tissue and in the subcutaneous layer Percentage of wound debrided: 100 Instrument Used: 5mm curette Tissue Removed: Fibrous, devitalized subcutaneous, biofilm, slough Severity: Fat Layer Exposed Amount of bleeding with debridement: Mild Bleeding Controlled with: Compression and gauze Patient tolerated procedure: Patient tolerated procedure well Post-Debridement Measurements and Additional Note: Post-Debridement Measurements/Treatment LC - Nurse 1 - General Ulcer Assessment Start: 07/14/23 10:58 Freq: Status: Active Protocol: LIZZETTE Activity Type Activity Date Activity User E-sign Co-sign Detail Recorded Client Recorded Date Recorded By Document 07/14/23 10:58 [facility] [employer] 07/14/23 11:03 KW Document 07/21/23 10:12 [facility] [employer] 07/21/23 10:15 [facility] 07/14/23 07/21/23 10:58 10:12 - Today's Visit Information Type of service Follow-up Visit Follow-up Visit (Physician/TRAINING DEVELOPMENT SPECIALIST (Physician/TRAINING DEVELOPMENT SPECIALIST ) ) Arrival Mode Ambulatory, Ambulatory, Crutches Crutches Transfer Assistance None Patient Identification Verified (Name & Yes Yes ) Patient Requires Transmission-Based No Precautions Height and Weight Body Mass Index (BMI) 35.2 35.2 BMI Classification Obese Obese Vital Signs Temperature (97.8 F-99.1 F) 96.5 F L 96.9 F L Temperature Source Temporal Temporal Pulse Rate (60-100) 104 H 88 Pulse Location Monitor Monitor Respiratory Rate (12-18) 18 16 Respiratory rate source Observation Observation Oxygen Delivery Method Room Air Room Air Blood Pressure (90/60-120/80) 136/72 H 162/81 H Blood Pressure Mean (mm Hg) 93 108 Source Monitor Monitor Position Semi-Fowlers Sitting Blood Pressure Location Left Arm Left Arm History Since Last Visit- (Skip if this is Patient's initial visit) Have you changed medications since your No No last visit? Any new allergies or adverse reactions No No Had a fall/change in ADL's that may No No increase risk of falls Signs or symptoms of abuse and/or No No neglect since last visit Have you been in the hospital since your No No last visit? Has dressing in place as prescribed Yes Yes Has compression in place as prescribed Yes N/A Has offloadiing in place as prescribed N/A Yes Experienced any changes in pain level or No No management Left Footwear Regular Shoe Regular Shoe Right Footwear Removable Cast Removable Cast Walker/Walking Walker/Walking Boot Boot Other Footwear r cam walker Pain Scale: 0-10 Numeric Is Patient Pain Free? Yes Yes - Nurse 1 - General Ulcer Measurement Start: 07/14/23 10:58 Freq: Status: Active Protocol: Activity Type Activity Date Activity User E-sign Co-sign Detail Recorded Client Recorded Date Recorded By Document 07/14/23 10:58 [facility] [employer] 07/14/23 11:03 Document 07/21/23 10:12 [facility] Desktop 07/21/23 10:15 [facility] 07/14/23 07/21/23 10:58 10:12 Wound Center Nurse 1 #15 RT LAT FT -Combined with other wound No -Current Size (cm) - Length 2 1.8 -Current Size (cm) - Width 1.2 1 -Current Size (cm) - Depth 0.1 0.1 -Total Square Cm 2.4 1.8 -Epithelialization Small 1-33% -Tunneling No -Undermining/Tunneling No -Circular Undermining No -Exudate Amt Medium Medium -Exudate Type Serosanguineous Serosanguineous -Wound Margin Distinct, Distinct, Outline Outline Attached Attached -Granulation Amt Large (67-100%) Large (67-100%) -Granulation Quality Red Red -Slough/Fibrin No -Necrosis Amt None Present (0 %) -Texture (Susana-wound Skin Appearance) Assessed Assessed,Callus ,Scarring -Moisture (Susana-wound Skin Appearance) Maceration Assessed,Dry/ Scaly -Color (Susana-wound Skin Appearance) Assessed Assessed -Temperature (Ssuana-wound Skin No Abnormality No Abnormality Appearance) (Pt Warm) (Pt Warm) -Tenderness on Palpation (Susana-wound No Skin Appearance) -Ulcer Cleansing Rinsed/ Rinsed/ Irrigated with Irrigated with Saline Saline -Foul Odor after Cleansing No -Anesthetic Used 5% Lidocaine 5% Lidocaine Gel Gel WC - Nurse 2 - General Ulcer CM Notes Start: 07/14/23 10:58 Freq: Status: Active Protocol: Activity Type Activity Date Activity User E-sign Co-sign Detail Recorded Client Recorded Date Recorded By Document 07/14/23 11:21 [facility] [employer] 07/14/23 11:24 [facility] 07/14/23 11:21 Wound Center Nurse 2 -Time 11:21 -Correct Patient Yes -Correct Side, Site, Position Yes -Correct Procedure Yes -Procedure Performed Yes -Type of Procedure Debridement -Clinical Debridement Subcutaneous -Tissue Removed Subcutaneous -Post Debridement (cm) - Length 2 -Post Debridement (cm) - Width 1.5 -Post Debridement (cm) - Depth 0.1 -Total Square (Post) (cm) 3.0 -Area of Debridement (cm) - Length 2 -Area of Debridement (cm) - Width 1.5 -Total Square (Area) (cm) 3.0 -Tunneling No -Undermining/Tunneling No -Circular Undermining No -Wound/Ulcer Outcome Not Healed -Ulcer Cleansing Rinsed/ Irrigated with Saline -Foul Odor after Cleansing No -Bioengineered Tissue No -Bleeding Controlled with Pressure -Treatment Response Procedure Tolerated Well -Type of Offloading Camwalker -Other Type of Offloading CUTOUTS -Total Non-Weight Bearing to Right Lower Extremity -Debridement - Subq, 1st 20sq cm Yes Pain Scale: 0-10 Numeric Is Patient Pain Free? Yes - Nurse 3 - General Ulcer D/C NN Start: 07/14/23 10:58 Freq: Status: Active Protocol: Activity Type Activity Date Activity User E-sign Co-sign Detail Recorded Client Recorded Date Recorded By Document 07/14/23 11:39 [facility] Desktop 07/14/23 11:39 DL 07/14/23 11:39 Wound Care Center Nurse 3 #15 RT LAT FT -Ulcer Cleansing Rinsed/ Irrigated with Saline -Foul Odor after Cleansing No -Other Dressing dakins -Primary Dressing Covered/Secured with Dry Gauze & Roll Gauze, Secured with Tape Treatment Response Procedure Tolerated Well Pain Scale: 0-10 Numeric Is Patient Pain Free? Yes WC - Visit Discharge Discharge Condition Stable Ambulatory Status Ambulatory Transportation Private Auto Assessment/Plan Assessment/Plan (1) Ulcer of right foot with fat layer exposed: CODE(S): L97.512 - Non-pressure chronic ulcer of other part of right foot with fat layer exposed (2) Type 2 diabetes mellitus with diabetic polyneuropathy: CODE(S): E11.42 - Type 2 diabetes mellitus with diabetic polyneuropathy (3) Type 2 diabetes mellitus with foot ulcer: CODE(S): E11.621 - Type 2 diabetes mellitus with foot ulcer; L97.509 - Non-pressure chronic ulcer of other part of unspecified foot with unspecified severity (4) Venous insufficiency: CODE(S): I87.2 - Venous insufficiency (chronic) (peripheral) (5) Other specified peripheral vascular diseases: CODE(S): I73.89 - Other specified peripheral vascular diseases (6) Leg edema: CODE(S): R60.0 - Localized edema PLAN: Plan Patient seen and evaluated Ulceration to the plantar aspect of the right foot underwent debridement as noted in clinical panel above. Ulceration measures 1.9 cm x 1.0 cm x 0.1 cm. No signs of infection. Dakin's wet-to-dry applied to the wound base and dressed with dry sterile dressing. He was placed back into his CAM boot with plantar offloading padding and instructed to remain nonweightbearing to the right foot with the assistance of crutches. He is to change dressing daily. Wound demonstrates continued improvement with reduction in size vs previous visit. Seeking approval for advanced wound care product for application at next visit, still awaiting approval from insurance. Labs ordered including HgbA1c, patient has not obtained. This was discussed to get this done. Previous A1c on record from 12/04/2021 was 6.2%. Radiographs obtained 06/14/2023 negative for osteomyelitis. Venous studies performed 06/14/2023 and are negative for DVT. He does have segmental valvular incompetence noted within the great saphenous veins bilaterally. Accessory saphenous vein in the right mid thigh is incompetent. Accessory saphenous vein in the left mid calf is incompetent. LEAS performed 06/14/2023: LLE?DP artery biphasic, PT artery monophasic; PT and DP PT artery noncompressible. PT artery indices 0.49, left DP indices 0.82, left digital brachial indices 0.74. RLE?right PT artery triphasic. PT and DP noncompressible. Right digital brachial indices 0.47. Interpretation: PVRs diminished at the ankle and digital levels on the left with right undetermined due to noncompressibility of the vasculature at the ankle level on the right. There is evidence of moderate arterial occlusive disease in the lower extremities bilateral. He has been referred to Dr. Harrington and has appointment with him next week. Discussed the importance of continued offloading in CAM boot with plantar offloading padding and to remain nonweightbearing to the right lower extremity with the assistance of crutches to aid in wound healing. Discussed that his foot type with prominent fifth metatarsal base secondary to his foot deformity will continue to create problems with wounds and healing and that he should always remain in diabetic shoe gear with protective offloading inserts. Discussed proper diabetic diet to aid in continued wound healing. Stressed importance of maintaining tight glycemic control to aid in wound healing. Discussed importance of daily foot checks and to never walk barefoot. Discussed socks include barefoot. Discussed adequate protein intake for continued wound healing. Toni supplementation also recommended. Discussed signs and symptoms of infection. Discussed if he notices redness about the wound that spreads on top of the foot or up the leg, if he has any purulent drainage from the wound site, has increasing foul odor to the wound, or if he experiences fever greater than 101 accompanied by nausea, vomiting, fever, chills these are signs of a progressing infection and he should report to the ED for IV antibiotics. He voices understanding of this. The following work up and care recommendations were made: Dressing: Dakin's wet-to-dry dressing and dry sterile dressing, change daily. Wash: Soap and water Tissue growth optimization: Dakin's Offload: CAM boot to the right foot with plantar offloading padding. He is to remain nonweightbearing with the assistance of crutches to the right foot Vascular: History of vascular disease. DP and PT pulses were palpable with adequate capillary fill time. Do not feel vascular status is impacting healing at this time. Edema: Recommended Tubigrip compression and following wound healing compression stockings 20 to 30 mmHg. Infection: No signs of infection. Patient currently finishing oral antibiotic course Pain: No pain secondary to diabetic peripheral polyneuropathy. May take [id number] Tylenol Extra Strength as needed for discomfort Host factors: DM type II with peripheral polyneuropathy, cavus foot, excessive pressure, obesity I answered all the patient's questions. To return to the wound healing center in 1 week or call sooner if the patient has any questions or concerns.
--- NOTE | 2023-07-28 10:07 | PCM.WC.PN ---
History of Present Illness Date of Service: 07/28/23 Chief Complaint: left foot ulcers History of Wound: This 57-year-old male presents to the wound care center as referral by his production lapping machine operator Dr. Enciso for plantar right foot ulceration. He has PMHx of bilateral foot wounds, partial fifth ray resection right foot, DM type II with peripheral polyneuropathy, cavovarus deformity right foot, chronic venous insufficiency, lower extremity edema, HTN, obesity. He states he did receive new shoes for Corinne and 2 days later on May 04, 2023 states that he had new wound development to the plantar aspect of the fifth metatarsal base of the right foot. He states he feels that shoes were too tight. He does have peripheral polyneuropathy and did not notice they were too tight until wound developed. He did go to urgent care and received 7-day course of doxycycline. He did finish antibiotic course to completion and followed up with his production lapping machine operator in office and underwent debridement with Betadine to the wound margin and Aquacel to the wound base. He was dressed and dry sterile dressing and offloading in CAM boot and has remained nonweightbearing with the assistance of crutches. At this time he was urged to go to hospital for further treatment given history of infection and amputation however he did refuse at this time and requested evaluation at the wound care center. He was thus started on Augmentin and Cipro and is currently finishing oral antibiotic course. He states he is continue to remain nonweightbearing and changing dressings daily. He currently denies N/V/F/chills. Denies further complaints. Subjective Subjective Patient is a 58-year-old male who follows to the wound care center today for continued care of plantar subfifth metatarsal ulceration of the right foot. He continues to offloading CAM boot and has attempted to remain nonweightbearing with crutches. He does state difficulty with a nonweightbearing status at all times. He has continued to change dressings daily with Dakins. States ulcer is improving and continuing to get smaller. Denies constitutional symptoms. Denies further complaints. Objective Data Objective Data Vital Signs: Vital Signs Temp Pulse Resp BP O2 Del Method 96.9 F L 88 16 162/81 H Room Air 07/21/23 10:12 07/21/23 10:12 07/21/23 10:12 07/21/23 10:12 07/21/23 10:12 Oxygen Delivery Method Room Air Weight: 124.284 kg Body Mass Index (BMI) 35.2 Physical Exam Const alert, oriented x3, no apparent distress and well nourished General Appearance: cooperative HEENT normocephalic Eyes General Eye: normal appearance of both eyes Neck General: normal visual inspection Lymph Lymphatic: no lymphadenopathy noted and no lymphedema noted Resp normal respiratory effort Cardio regular rate and regular rhythm Extremity normal capillary refill, no joint enlargement, no calf tenderness and no pedal edema Extremity Narrative: DP and PT pulses palpable. CFT less than 4 seconds to the digits. There is mild nonpitting edema about foot and ankle. Dermatological: There is a ulceration noted to the plantar aspect of the right foot subfifth metatarsal base/styloid process secondary to cavovarus deformity of the foot and continued pressure. Ulceration demonstrates fibrogranular base with serosanguineous drainage and surrounding hyperkeratosis secondary to previous blister. No purulent drainage, no erythema, no malodor, no lymphangitic streaking, no palpable fluctuance/bogginess noted, no visible abscess formation. Musculoskeletal: Muscle strength 5 of 5 age-appropriate. Prominent styloid process fifth metatarsal base with cavovarus foot deformity. Partial fifth Ray resection right foot. There is decreased range of motion of the ankle joint dorsiflexion decreased range of motion of the first metatarsophalangeal joint without pain or crepitus. Skin no rashes or lesions noted, skin turgor normal and no jaundice Neuro moves all extremities Debridement Note Debridement Note Wound debrided: Subfifth metatarsal base right foot Laterality: Right Wound Grade/Stage: Francois stage I Type of Debridement: Excisional debridement Anesthesia Used: 5% Lidocaine Gel Depth: Down to and including healthy tissue and in the subcutaneous layer Percentage of wound debrided: 100 Instrument Used: 5mm curette Tissue Removed: Fibrous, devitalized subcutaneous, biofilm, slough Severity: Fat Layer Exposed Amount of bleeding with debridement: Mild Bleeding Controlled with: Compression and gauze Patient tolerated procedure: Patient tolerated procedure well Post-Debridement Measurements and Additional Note: Post-Debridement Measurements/Treatment LC - Nurse 1 - General Ulcer Assessment Start: 07/14/23 10:58 Freq: Status: Active Protocol: LIZZETTE Activity Type Activity Date Activity User E-sign Co-sign Detail Recorded Client Recorded Date Recorded By Document 07/14/23 10:58 KW Desktop 07/14/23 11:03 KW Document 07/21/23 10:12 [facility] Desktop 07/21/23 10:15 [facility] 07/14/23 07/21/23 10:58 10:12 - Today's Visit Information Type of service Follow-up Visit Follow-up Visit (Physician/DIRECTOR DATA MANAGEMENT (Physician/DIRECTOR DATA MANAGEMENT ) ) Arrival Mode Ambulatory, Ambulatory, Crutches Crutches Transfer Assistance None Patient Identification Verified (Name & Yes Yes ) Patient Requires Transmission-Based No Precautions Height and Weight Body Mass Index (BMI) 35.2 35.2 BMI Classification Obese Obese Vital Signs Temperature (97.8 F-99.1 F) 96.5 F L 96.9 F L Temperature Source Temporal Temporal Pulse Rate (60-100) 104 H 88 Pulse Location Monitor Monitor Respiratory Rate (12-18) 18 16 Respiratory rate source Observation Observation Oxygen Delivery Method Room Air Room Air Blood Pressure (90/60-120/80) 136/72 H 162/81 H Blood Pressure Mean (mm Hg) 93 108 Source Monitor Monitor Position Semi-Fowlers Sitting Blood Pressure Location Left Arm Left Arm History Since Last Visit- (Skip if this is Patient's initial visit) Have you changed medications since your No No last visit? Any new allergies or adverse reactions No No Had a fall/change in ADL's that may No No increase risk of falls Signs or symptoms of abuse and/or No No neglect since last visit Have you been in the hospital since your No No last visit? Has dressing in place as prescribed Yes Yes Has compression in place as prescribed Yes N/A Has offloadiing in place as prescribed N/A Yes Experienced any changes in pain level or No No management Left Footwear Regular Shoe Regular Shoe Right Footwear Removable Cast Removable Cast Walker/Walking Walker/Walking Boot Boot Other Footwear r cam walker Pain Scale: 0-10 Numeric Is Patient Pain Free? Yes Yes - Nurse 1 - General Ulcer Measurement Start: 07/14/23 10:58 Freq: Status: Active Protocol: Activity Type Activity Date Activity User E-sign Co-sign Detail Recorded Client Recorded Date Recorded By Document 07/14/23 10:58 KW [employer] 07/14/23 11:03 KW Document 07/21/23 10:12 [facility] Desktop 07/21/23 10:15 [facility] 07/14/23 07/21/23 10:58 10:12 Wound Center Nurse 1 #15 RT LAT FT -Combined with other wound No -Current Size (cm) - Length 2 1.8 -Current Size (cm) - Width 1.2 1 -Current Size (cm) - Depth 0.1 0.1 -Total Square Cm 2.4 1.8 -Epithelialization Small 1-33% -Tunneling No -Undermining/Tunneling No -Circular Undermining No -Exudate Amt Medium Medium -Exudate Type Serosanguineous Serosanguineous -Wound Margin Distinct, Distinct, Outline Outline Attached Attached -Granulation Amt Large (67-100%) Large (67-100%) -Granulation Quality Red Red -Slough/Fibrin No -Necrosis Amt None Present (0 %) -Texture (Susana-wound Skin Appearance) Assessed Assessed,Callus ,Scarring -Moisture (Susana-wound Skin Appearance) Maceration Assessed,Dry/ Scaly -Color (Susana-wound Skin Appearance) Assessed Assessed -Temperature (Susana-wound Skin No Abnormality No Abnormality Appearance) (Pt Warm) (Pt Warm) -Tenderness on Palpation (Susana-wound No Skin Appearance) -Ulcer Cleansing Rinsed/ Rinsed/ Irrigated with Irrigated with Saline Saline -Foul Odor after Cleansing No -Anesthetic Used 5% Lidocaine 5% Lidocaine Gel Gel WC - Nurse 2 - General Ulcer CM Notes Start: 07/14/23 10:58 Freq: Status: Active Protocol: Activity Type Activity Date Activity User E-sign Co-sign Detail Recorded Client Recorded Date Recorded By Document 07/14/23 11:21 [facility] Desktop 07/14/23 11:24 [facility] Document 07/21/23 10:29 [facility] Desktop 07/21/23 10:31 [facility] 07/14/23 07/21/23 11:21 10:29 Wound Center Nurse 2 #15 RT LAT FT -Time 11:21 10:29 -Correct Patient Yes Yes -Correct Side, Site, Position Yes Yes -Correct Procedure Yes Yes -Procedure Performed Yes Yes -Type of Procedure Debridement Debridement -Clinical Debridement Subcutaneous Subcutaneous -Tissue Removed Subcutaneous Subcutaneous -Post Debridement (cm) - Length 2 1.9 -Post Debridement (cm) - Width 1.5 1 -Post Debridement (cm) - Depth 0.1 0.1 -Total Square (Post) (cm) 3.0 1.9 -Area of Debridement (cm) - Length 2 1.9 -Area of Debridement (cm) - Width 1.5 1 -Total Square (Area) (cm) 3.0 1.9 -Tunneling No No -Undermining/Tunneling No No -Circular Undermining No No -Wound/Ulcer Outcome Not Healed Not Healed -Ulcer Cleansing Rinsed/ Rinsed/ Irrigated with Irrigated with Saline Saline -Foul Odor after Cleansing No No -Bioengineered Tissue No -Bleeding Controlled with Pressure Pressure -Treatment Response Procedure Procedure Tolerated Well Tolerated Well -Type of Offloading Camwalker Camwalker -Other Type of Offloading CUTOUTS -Total Non-Weight Bearing to Right Lower Right Lower Extremity Extremity -Debridement - Subq, 1st 20sq cm Yes Yes Pain Scale: 0-10 Numeric Is Patient Pain Free? Yes Yes - Nurse 3 - General Ulcer D/C NN Start: 07/14/23 10:58 Freq: Status: Active Protocol: Activity Type Activity Date Activity User E-sign Co-sign Detail Recorded Client Recorded Date Recorded By Document 07/14/23 11:39 DL Desktop 07/14/23 11:39 DL Document 07/21/23 10:38 KW Desktop 07/21/23 10:39 KW 07/14/23 07/21/23 11:39 10:38 Wound Care Center Nurse 3 #15 RT LAT FT -Ulcer Cleansing Rinsed/ Irrigated with Saline -Foul Odor after Cleansing No -Other Dressing dakins -Primary Dressing Covered/Secured with Dry Gauze & Dry Gauze & Roll Gauze, Roll Gauze, Secured with Secured with Tape Tape Treatment Response Procedure Tolerated Well Pain Scale: 0-10 Numeric Is Patient Pain Free? Yes Yes WC - Visit Discharge Discharge Condition Stable Stable Ambulatory Status Ambulatory Crutches Transportation Private Auto Private Auto Medication Reconcilliation completed & No provided to patient/care provider Clinical Summary of Care Provided Yes Assessment/Plan Assessment/Plan (1) Ulcer of right foot with fat layer exposed: CODE(S): L97.512 - Non-pressure chronic ulcer of other part of right foot with fat layer exposed (2) Type 2 diabetes mellitus with diabetic polyneuropathy: CODE(S): E11.42 - Type 2 diabetes mellitus with diabetic polyneuropathy (3) Type 2 diabetes mellitus with foot ulcer: CODE(S): E11.621 - Type 2 diabetes mellitus with foot ulcer; L97.509 - Non-pressure chronic ulcer of other part of unspecified foot with unspecified severity (4) Venous insufficiency: CODE(S): I87.2 - Venous insufficiency (chronic) (peripheral) (5) Other specified peripheral vascular diseases: CODE(S): I73.89 - Other specified peripheral vascular diseases (6) Leg edema: CODE(S): R60.0 - Localized edema PLAN: Plan Patient seen and evaluated Ulceration to the plantar aspect of the right foot underwent debridement as noted in clinical panel above. Ulceration measures 1.5 cm x 0.9 cm x 0.1 cm. No signs of infection. Dakin's wet-to-dry applied to the wound base and dressed with dry sterile dressing. He was placed back into his CAM boot with plantar offloading padding and instructed to remain nonweightbearing to the right foot with the assistance of crutches. He is to change dressing daily. Wound demonstrates continued improvement with reduction in size vs previous visit. Seeking approval for advanced wound care product for application at next visit, still awaiting approval from insurance. Labs ordered including HgbA1c, patient has not obtained. This was discussed to get this done. Previous A1c on record from 12/04/2021 was 6.2%. Radiographs obtained 06/14/2023 negative for osteomyelitis. Venous studies performed 06/14/2023 and are negative for DVT. He does have segmental valvular incompetence noted within the great saphenous veins bilaterally. Accessory saphenous vein in the right mid thigh is incompetent. Accessory saphenous vein in the left mid calf is incompetent. LEAS performed 06/14/2023: LLE?DP artery biphasic, PT artery monophasic; PT and DP PT artery noncompressible. PT artery indices 0.49, left DP indices 0.82, left digital brachial indices 0.74. RLE?right PT artery triphasic. PT and DP noncompressible. Right digital brachial indices 0.47. Interpretation: PVRs diminished at the ankle and digital levels on the left with right undetermined due to noncompressibility of the vasculature at the ankle level on the right. There is evidence of moderate arterial occlusive disease in the lower extremities bilateral. He has been referred to Dr. Harrington and has appointment with him next week. Discussed the importance of continued offloading in CAM boot with plantar offloading padding and to remain nonweightbearing to the right lower extremity with the assistance of crutches to aid in wound healing. Discussed that his foot type with prominent fifth metatarsal base secondary to his foot deformity will continue to create problems with wounds and healing and that he should always remain in diabetic shoe gear with protective offloading inserts. Discussed proper diabetic diet to aid in continued wound healing. Stressed importance of maintaining tight glycemic control to aid in wound healing. Discussed importance of daily foot checks and to never walk barefoot. Discussed socks include barefoot. Discussed adequate protein intake for continued wound healing. Toni supplementation also recommended. Discussed signs and symptoms of infection. Discussed if he notices redness about the wound that spreads on top of the foot or up the leg, if he has any purulent drainage from the wound site, has increasing foul odor to the wound, or if he experiences fever greater than 101 accompanied by nausea, vomiting, fever, chills these are signs of a progressing infection and he should report to the ED for IV antibiotics. He voices understanding of this. The following work up and care recommendations were made: Dressing: Dakin's wet-to-dry dressing and dry sterile dressing, change daily. Wash: Soap and water Tissue growth optimization: Dakjavier's Offload: CAM boot to the right foot with plantar offloading padding. He is to remain nonweightbearing with the assistance of crutches to the right foot Vascular: History of vascular disease. DP and PT pulses were palpable with adequate capillary fill time. Do not feel vascular status is impacting healing at this time. Edema: Recommended Tubigrip compression and following wound healing compression stockings 20 to 30 mmHg. Infection: No signs of infection. Patient currently finishing oral antibiotic course Pain: No pain secondary to diabetic peripheral polyneuropathy. May take [id number] Tylenol Extra Strength as needed for discomfort Host factors: DM type II with peripheral polyneuropathy, cavus foot, excessive pressure, obesity I answered all the patient's questions. To return to the wound healing center in 1 week or call sooner if the patient has any questions or concerns.
[2023-07-28 10:10] VITALS: BP 142/72; PULSE 91; RESP 20; TEMP 36.6; BMI 35.2
[2023-08-04 10:05] VITALS: BP 149/66; PULSE 82; RESP 18; TEMP 35.6; BMI 35.2
--- NOTE | 2023-08-04 10:29 | PCM.WC.PN ---
History of Present Illness Date of Service: 08/04/23 Chief Complaint: left foot ulcers History of Wound: This 57-year-old male presents to the wound care center as referral by his charge histotechnologist Dr. Enciso for plantar right foot ulceration. He has PMHx of bilateral foot wounds, partial fifth ray resection right foot, DM type II with peripheral polyneuropathy, cavovarus deformity right foot, chronic venous insufficiency, lower extremity edema, HTN, obesity. He states he did receive new shoes for [place] and 2 days later on May 04, 2023 states that he had new wound development to the plantar aspect of the fifth metatarsal base of the right foot. He states he feels that shoes were too tight. He does have peripheral polyneuropathy and did not notice they were too tight until wound developed. He did go to urgent care and received 7-day course of doxycycline. He did finish antibiotic course to completion and followed up with his charge histotechnologist in office and underwent debridement with Betadine to the wound margin and Aquacel to the wound base. He was dressed and dry sterile dressing and offloading in CAM boot and has remained nonweightbearing with the assistance of crutches. At this time he was urged to go to hospital for further treatment given history of infection and amputation however he did refuse at this time and requested evaluation at the wound care center. He was thus started on Augmentin and Cipro and is currently finishing oral antibiotic course. He states he is continue to remain nonweightbearing and changing dressings daily. He currently denies N/V/F/chills. Denies further complaints. Subjective Subjective Patient is a 58-year-old male who follows to the wound care center today for continued care of plantar subfifth metatarsal ulceration of the right foot. He continues to offloading CAM boot and has attempted to remain nonweightbearing with crutches. He does state difficulty with a nonweightbearing status at all times. He has continued to change dressings daily with Dakins. States ulcer is improving and continuing to get smaller. Denies constitutional symptoms. Denies further complaints. Objective Data Objective Data Vital Signs: Vital Signs Temp Pulse Resp BP O2 Del Method 96.0 F L 82 18 149/66 H Room Air 08/04/23 10:05 08/04/23 10:05 08/04/23 10:05 08/04/23 10:05 08/04/23 10:05 Oxygen Delivery Method Room Air Weight: 124.284 kg Body Mass Index (BMI) 35.2 Physical Exam Const alert, oriented x3, no apparent distress and well nourished General Appearance: cooperative HEENT normocephalic Eyes General Eye: normal appearance of both eyes Neck General: normal visual inspection Lymph Lymphatic: no lymphadenopathy noted and no lymphedema noted Resp normal respiratory effort Cardio regular rate and regular rhythm Extremity normal capillary refill, no joint enlargement, no calf tenderness and no pedal edema Extremity Narrative: DP and PT pulses palpable. CFT less than 4 seconds to the digits. There is mild nonpitting edema about foot and ankle. Dermatological: There is a ulceration noted to the plantar aspect of the right foot subfifth metatarsal base/styloid process secondary to cavovarus deformity of the foot and continued pressure. Ulceration demonstrates fibrogranular base with serosanguineous drainage and surrounding hyperkeratosis secondary to previous blister. No purulent drainage, no erythema, no malodor, no lymphangitic streaking, no palpable fluctuance/bogginess noted, no visible abscess formation. Musculoskeletal: Muscle strength 5 of 5 age-appropriate. Prominent styloid process fifth metatarsal base with cavovarus foot deformity. Partial fifth Ray resection right foot. There is decreased range of motion of the ankle joint dorsiflexion decreased range of motion of the first metatarsophalangeal joint without pain or crepitus. Skin no rashes or lesions noted, skin turgor normal and no jaundice Neuro moves all extremities Debridement Note Debridement Note Wound debrided: Subfifth metatarsal right foot Laterality: Right Wound Grade/Stage: Francois stage I Type of Debridement: Excisional debridement Anesthesia Used: 5% Lidocaine Gel Depth: Down to and including healthy tissue and in the subcutaneous layer Percentage of wound debrided: 100 Instrument Used: 5mm curette Tissue Removed: Fibrous, devitalized subcutaneous, biofilm, slough Severity: Fat Layer Exposed Amount of bleeding with debridement: Mild Bleeding Controlled with: Compression and gauze Patient tolerated procedure: Patient tolerated procedure well Post-Debridement Measurements and Additional Note: Post-Debridement Measurements/Treatment LC - Nurse 1 - General Ulcer Assessment Start: 07/14/23 10:58 Freq: Status: Active Protocol: LIZZETTE Activity Type Activity Date Activity User E-sign Co-sign Detail Recorded Client Recorded Date Recorded By Document 07/14/23 10:58 KW Desktop 07/14/23 11:03 KW Document 07/21/23 10:12 BMF Desktop 07/21/23 10:15 BMF Document 07/28/23 10:10 DL Desktop 07/28/23 10:16 DL Document 08/04/23 10:05 KW Desktop 08/04/23 10:12 KW 07/14/23 07/21/23 07/28/23 10:58 10:12 10:10 WC - Today's Visit Information Type of service Follow-up Visit Follow-up Visit Follow-up Visit (Physician/SUPERVISOR SHIPFITTERS (Physician/SUPERVISOR SHIPFITTERS (Physician/SUPERVISOR SHIPFITTERS ) ) ) Arrival Mode Ambulatory, Ambulatory, Ambulatory, Crutches Crutches Crutches Transfer Assistance None None Patient Identification Verified (Name & Yes Yes Yes ) Patient Requires Transmission-Based No No Precautions Finger Stick Blood Sugar(mg/dl) (if 113 indicated): Blood Sugar Stated by Patient Height and Weight Body Mass Index (BMI) 35.2 35.2 35.2 BMI Classification Obese Obese Obese Vital Signs Temperature (97.8 F-99.1 F) 96.5 F L 96.9 F L 98 F Temperature Source Temporal Temporal Temporal Pulse Rate (60-100) 104 H 88 91 Pulse Location Monitor Monitor Monitor Respiratory Rate (12-18) 18 16 20 H Respiratory rate source Observation Observation Observation Oxygen Delivery Method Room Air Room Air Blood Pressure (90/60-120/80) 136/72 H 162/81 H 142/72 H Blood Pressure Mean (mm Hg) 93 108 95 Source Monitor Monitor Monitor Position Semi-Fowlers Sitting Blood Pressure Location Left Arm Left Arm History Since Last Visit- (Skip if this is Patient's initial visit) Have you changed medications since your No No No last visit? Any new allergies or adverse reactions No No No Had a fall/change in ADL's that may No No No increase risk of falls Signs or symptoms of abuse and/or No No No neglect since last visit Have you been in the hospital since your No No No last visit? Has dressing in place as prescribed Yes Yes Yes Has compression in place as prescribed Yes N/A N/A Has offloadiing in place as prescribed N/A Yes Yes Experienced any changes in pain level or No No No management Left Footwear Regular Shoe Regular Shoe Right Footwear Removable Cast Removable Cast Removable Cast Walker/Walking Walker/Walking Walker/Walking Boot Boot Boot Other Footwear r cam walker Pain Scale: 0-10 Numeric Is Patient Pain Free? Yes Yes Yes 08/04/23 10:05 - Today's Visit Information Type of service Follow-up Visit (Physician/SUPERVISOR SHIPF[employer]TERS ) Arrival Mode Ambulatory, Crutches Transfer Assistance Patient Identification Verified (Name & Yes ) Patient Requires Transmission-Based Precautions Finger Stick Blood Sugar(mg/dl) (if 115 indicated): Blood Sugar Stated by Patient Height and Weight Body Mass Index (BMI) 35.2 BMI Classification Obese Vital Signs Temperature (97.8 F-99.1 F) 96.0 F L Temperature Source Temporal Pulse Rate (60-100) 82 Pulse Location Respiratory Rate (12-18) 18 Respiratory rate source Observation Oxygen Delivery Method Room Air Blood Pressure (90/60-120/80) 149/66 H Blood Pressure Mean (mm Hg) 93 Source Monitor Position Semi-Fowlers Blood Pressure Location Left Arm History Since Last Visit- (Skip if this is Patient's initial visit) Have you changed medications since your No last visit? Any new allergies or adverse reactions No Had a fall/change in ADL's that may No increase risk of falls Signs or symptoms of abuse and/or No neglect since last visit Have you been in the hospital since your No last visit? Has dressing in place as prescribed Yes Has compression in place as prescribed Yes Has offloadiing in place as prescribed Yes Experienced any changes in pain level or No management Left Footwear Regular Shoe Right Footwear Removable Cast Walker/Walking Boot Other Footwear Pain Scale: 0-10 Numeric Is Patient Pain Free? Yes - Nurse 1 - General Ulcer Measurement Start: 07/14/23 10:58 Freq: Status: Active Protocol: Activity Type Activity Date Activity User E-sign Co-sign Detail Recorded Client Recorded Date Recorded By Document 07/14/23 10:58 KW Desktop 07/14/23 11:03 KW Document 07/21/23 10:12 BMF Desktop 07/21/23 10:15 BMF Document 07/28/23 10:10 DL Desktop 07/28/23 10:16 DL Document 08/04/23 10:05 KW Desktop 08/04/23 10:12 KW 07/14/23 07/21/23 07/28/23 10:58 10:12 10:10 Wound Center Nurse 1 #15 RT LAT FT -Combined with other wound No -Current Size (cm) - Length 2 1.8 1.5 -Current Size (cm) - Width 1.2 1 0.7 -Current Size (cm) - Depth 0.1 0.1 0.1 -Total Square Cm 2.4 1.8 1.05 -Epithelialization Small 1-33% -Tunneling No -Undermining/Tunneling No -Circular Undermining No -Exudate Amt Medium Medium Medium -Exudate Type Serosanguineous Serosanguineous Serosanguineous -Wound Margin Distinct, Distinct, Distinct, Outline Outline Outline Attached Attached Attached -Granulation Amt Large (67-100%) Large (67-100%) Large (67-100%) -Granulation Quality Red Red [place] -Slough/Fibrin No -Necrosis Amt None Present (0 None Present (0 %) %) -Structure Exposed N/A -Texture (Susana-wound Skin Appearance) Assessed Assessed,Callus Callus,Scarring ,Scarring -Moisture (Susana-wound Skin Appearance) Maceration Assessed,Dry/ No Abnormality Scaly -Color (Susana-wound Skin Appearance) Assessed Assessed Hemosiderin Staining -Temperature (Susana-wound Skin No Abnormality No Abnormality No Abnormality Appearance) (Pt Warm) (Pt Warm) (Pt Warm) -Tenderness on Palpation (Susana-wound No Skin Appearance) -Ulcer Cleansing Rinsed/ Rinsed/ Soap and Water Irrigated with Irrigated with Saline Saline -Foul Odor after Cleansing No No -Anesthetic Used 5% Lidocaine 5% Lidocaine 5% Lidocaine Gel Gel Gel 08/04/23 10:05 Wound Center Nurse 1 #15 RT LAT FT -Combined with other wound -Current Size (cm) - Length 1.3 -Current Size (cm) - Width 0.6 -Current Size (cm) - Depth 0.1 -Total Square Cm 0.78 -Epithelialization -Tunneling -Undermining/Tunneling -Circular Undermining -Exudate Amt Small -Exudate Type Serosanguineous -Wound Margin Distinct, Outline Attached -Granulation Amt Large (67-100%) -Granulation Quality Red -Slough/Fibrin -Necrosis Amt -Structure Exposed -Texture (Susana-wound Skin Appearance) Assessed,Callus -Moisture (Susana-wound Skin Appearance) Assessed -Color (Susana-wound Skin Appearance) Assessed -Temperature (Susana-wound Skin No Abnormality Appearance) (Pt Warm) -Tenderness on Palpation (Susana-wound Skin Appearance) -Ulcer Cleansing Rinsed/ Irrigated with Saline -Foul Odor after Cleansing -Anesthetic Used 5% Lidocaine Gel WC - Nurse 2 - General Ulcer CM Notes Start: 07/14/23 10:58 Freq: Status: Active Protocol: Activity Type Activity Date Activity User E-sign Co-sign Detail Recorded Client Recorded Date Recorded By Document 07/14/23 11:21 [employer] Desktop 07/14/23 11:24 [employer] Document 07/21/23 10:29 [employer] Desktop 07/21/23 10:31 [employer] Document 07/28/23 11:05 [employer] Desktop 07/28/23 11:07 [facility] 07/14/23 07/21/23 07/28/23 11:21 10:29 11:05 Wound Center Nurse 2 #15 RT LAT FT -Time 11:21 10:29 11:05 -Correct Patient Yes Yes Yes -Correct Side, Site, Position Yes Yes Yes -Correct Procedure Yes Yes Yes -Procedure Performed Yes Yes Yes -Type of Procedure Debridement Debridement Debridement -Clinical Debridement Subcutaneous Subcutaneous Subcutaneous -Tissue Removed Subcutaneous Subcutaneous Subcutaneous -Post Debridement (cm) - Length 2 1.9 1.5 -Post Debridement (cm) - Width 1.5 1 0.9 -Post Debridement (cm) - Depth 0.1 0.1 0.1 -Total Square (Post) (cm) 3.0 1.9 1.35 -Area of Debridement (cm) - Length 2 1.9 1.5 -Area of Debridement (cm) - Width 1.5 1 0.9 -Total Square (Area) (cm) 3.0 1.9 1.35 -Tunneling No No No -Undermining/Tunneling No No No -Circular Undermining No No No -Wound/Ulcer Outcome Not Healed Not Healed Not Healed -Ulcer Cleansing Rinsed/ Rinsed/ Rinsed/ Irrigated with Irrigated with Irrigated with Saline Saline Saline -Foul Odor after Cleansing No No No -Bioengineered Tissue No No -Bleeding Controlled with Pressure Pressure Pressure -Treatment Response Procedure Procedure Procedure Tolerated Well Tolerated Well Tolerated Well -Offloading No -Type of Offloading Camwalker Camwalker -Other Type of Offloading CUTOUTS -Total Non-Weight Bearing to Right Lower Right Lower Extremity Extremity -Debridement - Subq, 1st 20sq cm Yes Yes Yes Pain Scale: 0-10 Numeric Is Patient Pain Free? Yes Yes Yes - Nurse 3 - General Ulcer D/C NN Start: 07/14/23 10:58 Freq: Status: Active Protocol: Activity Type Activity Date Activity User E-sign Co-sign Detail Recorded Client Recorded Date Recorded By Document 07/14/23 11:39 DL Desktop 07/14/23 11:39 DL Document 07/21/23 10:38 KW Desktop 07/21/23 10:39 KW Document 07/28/23 11:31 GM Desktop 07/28/23 11:32 GM 07/14/23 07/21/23 07/28/23 11:39 10:38 11:31 Wound Care Center Nurse 3 #15 RT LAT FT -Ulcer Cleansing Rinsed/ Not Cleansed Irrigated with Saline -Foul Odor after Cleansing No No -Other Dressing dakins dakins wet to dry -Primary Dressing Covered/Secured with Dry Gauze & Dry Gauze & Dry Gauze,Dry Roll Gauze, Roll Gauze, Gauze & Roll Secured with Secured with Gauze,Secured Tape Tape with Tape Treatment Response Procedure Tolerated Well Pain Scale: 0-10 Numeric Is Patient Pain Free? Yes Yes Yes WC - Visit Discharge Discharge Condition Stable Stable Stable Ambulatory Status Ambulatory Crutches Ambulatory, Crutches Transportation Private Auto Private Auto Private Auto Medication Reconcilliation completed & No Yes provided to patient/care provider Clinical Summary of Care Provided Yes Yes Assessment/Plan Assessment/Plan (1) Ulcer of right foot with fat layer exposed: CODE(S): L97.512 - Non-pressure chronic ulcer of other part of right foot with fat layer exposed (2) Type 2 diabetes mellitus with diabetic polyneuropathy: CODE(S): E11.42 - Type 2 diabetes mellitus with diabetic polyneuropathy (3) Type 2 diabetes mellitus with foot ulcer: CODE(S): E11.621 - Type 2 diabetes mellitus with foot ulcer; L97.509 - Non-pressure chronic ulcer of other part of unspecified foot with unspecified severity (4) Venous insufficiency: CODE(S): I87.2 - Venous insufficiency (chronic) (peripheral) (5) Other specified peripheral vascular diseases: CODE(S): I73.89 - Other specified peripheral vascular diseases (6) Leg edema: CODE(S): R60.0 - Localized edema PLAN: Plan Patient seen and evaluated Ulceration to the plantar aspect of the right foot underwent debridement as noted in clinical panel above. Ulceration measures 1.5 cm x 0.6 cm x 0.1 cm. No signs of infection. Dakin's wet-to-dry applied to the wound base and dressed with dry sterile dressing. He was placed back into his CAM boot with plantar offloading padding and instructed to remain nonweightbearing to the right foot with the assistance of crutches. He is to change dressing daily. Wound demonstrates continued improvement with reduction in size vs previous visit. He has been approved for EpiFix as of 08/03/23. Patient states that he would have to pay a portion of this deductible towards the graft and he is unsure now if he would wish to proceed forward with applications. Labs ordered including HgbA1c, patient has not obtained. This was discussed to get this done. Previous A1c on record from 12/04/2021 was 6.2%. Radiographs obtained 06/14/2023 negative for osteomyelitis. Venous studies performed 06/14/2023 and are negative for DVT. He does have segmental valvular incompetence noted within the great saphenous veins bilaterally. Accessory saphenous vein in the right mid thigh is incompetent. Accessory saphenous vein in the left mid calf is incompetent. LEAS performed 06/14/2023: LLE?DP artery biphasic, PT artery monophasic; PT and DP PT artery noncompressible. PT artery indices 0.49, left DP indices 0.82, left digital brachial indices 0.74. RLE?right PT artery triphasic. PT and DP noncompressible. Right digital brachial indices 0.47. Interpretation: PVRs diminished at the ankle and digital levels on the left with right undetermined due to noncompressibility of the vasculature at the ankle level on the right. There is evidence of moderate arterial occlusive disease in the lower extremities bilateral. He has been referred to Dr. Harrington and has appointment with him next week. Discussed the importance of continued offloading in CAM boot with plantar offloading padding and to remain nonweightbearing to the right lower extremity with the assistance of crutches to aid in wound healing. Discussed that his foot type with prominent fifth metatarsal base secondary to his foot deformity will continue to create problems with wounds and healing and that he should always remain in diabetic shoe gear with protective offloading inserts. Discussed proper diabetic diet to aid in continued wound healing. Stressed importance of maintaining tight glycemic control to aid in wound healing. Discussed importance of daily foot checks and to never walk barefoot. Discussed socks include barefoot. Discussed adequate protein intake for continued wound healing. Toni supplementation also recommended. Discussed signs and symptoms of infection. Discussed if he notices redness about the wound that spreads on top of the foot or up the leg, if he has any purulent drainage from the wound site, has increasing foul odor to the wound, or if he experiences fever greater than 101 accompanied by nausea, vomiting, fever, chills these are signs of a progressing infection and he should report to the ED for IV antibiotics. He voices understanding of this. The following work up and care recommendations were made: Dressing: Dakin's wet-to-dry dressing and dry sterile dressing, change daily. Wash: Soap and water Tissue growth optimization: Dakin's Offload: CAM boot to the right foot with plantar offloading padding. He is to remain nonweightbearing with the assistance of crutches to the right foot Vascular: History of vascular disease. DP and PT pulses were palpable with adequate capillary fill time. Do not feel vascular status is impacting healing at this time. Edema: Recommended Tubigrip compression and following wound healing compression stockings 20 to 30 mmHg. Infection: No signs of infection. Patient currently finishing oral antibiotic course Pain: No pain secondary to diabetic peripheral polyneuropathy. May take [id number] Tylenol Extra Strength as needed for discomfort Host factors: DM type II with peripheral polyneuropathy, cavus foot, excessive pressure, obesity I answered all the patient's questions. To return to the wound healing center in 1 week or call sooner if the patient has any questions or concerns.
== END 2023-08-07 23:59 | disposition home or self-care (01) ==
LOC: WC 10:15
PROVIDERS: PCP Student in an Organized Health Care Education/Training Program; Referring Provider Podiatrist Foot & Ankle Surgery; Visit Provider Student in an Organized Health Care Education/Training Program
DX: E11.621 Type 2 diabetes mellitus with foot ulcer (principal); L97.412 Non-pressure chronic ulcer of right heel and midfoot with fat layer exposed; E11.42 Type 2 diabetes mellitus with diabetic polyneuropathy; E11.51 Type 2 diabetes mellitus with diabetic peripheral angiopathy without gangrene; Z79.4 Long term (current) use of insulin; Q66.11 Congenital talipes calcaneovarus, right foot; I87.2 Venous insufficiency (chronic) (peripheral); R60.0 Localized edema; I10 Essential (primary) hypertension; E66.9 Obesity, unspecified; Z79.82 Long term (current) use of aspirin; Z79.899 Other long term (current) drug therapy; Z68.35 Body mass index [BMI] 35.0-35.9, adult
CPT/HCPCS: 11042

== ENCOUNTER 2023-09-01 10:15 | Outpatient (RCR) | payer OTHER, SELFPAY ==
[2023-08-08 00:41] VITALS: BP 149/66; PULSE 82; RESP 18; TEMP 35.6; BMI 35.2
[2023-08-11 10:34] VITALS: BP 152/82; PULSE 106; RESP 18; TEMP 36.6; BMI 35.2
--- NOTE | 2023-08-11 13:20 | PCM.WC.PN ---
History of Present Illness Date of Service: 08/11/23 Chief Complaint: left foot ulcers History of Wound: This 57-year-old male presents to the wound care center as referral by his park attendant Dr. Enciso for plantar right foot ulceration. He has PMHx of bilateral foot wounds, partial fifth ray resection right foot, DM type II with peripheral polyneuropathy, cavovarus deformity right foot, chronic venous insufficiency, lower extremity edema, HTN, obesity. He states he did receive new shoes for Rohith and 2 days later on May 04, 2023 states that he had new wound development to the plantar aspect of the fifth metatarsal base of the right foot. He states he feels that shoes were too tight. He does have peripheral polyneuropathy and did not notice they were too tight until wound developed. He did go to urgent care and received 7-day course of doxycycline. He did finish antibiotic course to completion and followed up with his park attendant in office and underwent debridement with Betadine to the wound margin and Aquacel to the wound base. He was dressed and dry sterile dressing and offloading in CAM boot and has remained nonweightbearing with the assistance of crutches. At this time he was urged to go to hospital for further treatment given history of infection and amputation however he did refuse at this time and requested evaluation at the wound care center. He was thus started on Augmentin and Cipro and is currently finishing oral antibiotic course. He states he is continue to remain nonweightbearing and changing dressings daily. He currently denies N/V/F/chills. Denies further complaints. Subjective Subjective Patient is a 58-year-old male who follows to the wound care center today for continued care of plantar subfifth metatarsal ulceration of the right foot. He continues to offloading CAM boot and has attempted to remain nonweightbearing with crutches. He does state difficulty with a nonweightbearing status at all times. He has continued to change dressings daily with Dakins. States ulcer is improving and continuing to get smaller each week. Denies constitutional symptoms. Denies further complaints. Objective Data Objective Data Vital Signs: Vital Signs Temp Pulse Resp BP O2 Del Method 98 F 106 H 18 152/82 H Room Air 08/11/23 10:34 08/11/23 10:34 08/11/23 10:34 08/11/23 10:34 08/11/23 10:34 Oxygen Delivery Method Room Air Weight: 124.284 kg Body Mass Index (BMI) 35.2 Physical Exam Const alert, oriented x3 and no apparent distress General Appearance: cooperative HEENT normocephalic Eyes General Eye: normal appearance of both eyes Neck General: normal visual inspection Lymph Lymphatic: no lymphadenopathy noted and no lymphedema noted Resp normal respiratory effort Cardio regular rate and regular rhythm Extremity normal capillary refill, no joint enlargement, no calf tenderness and no pedal edema Extremity Narrative: Vascular: DP and PT pulses palpable. CFT less than 4 seconds to the digits. There is mild nonpitting edema about foot and ankle. Dermatological: There is a ulceration noted to the plantar aspect of the right foot subfifth metatarsal base/styloid process secondary to cavovarus deformity of the foot and continued pressure. Ulceration demonstrates fibrogranular base with serosanguineous drainage and surrounding hyperkeratosis secondary to previous blister. No purulent drainage, no erythema, no malodor, no lymphangitic streaking, no palpable fluctuance/bogginess noted, no visible abscess formation. Musculoskeletal: Muscle strength 5 of 5 age-appropriate. Prominent styloid process fifth metatarsal base with cavovarus foot deformity. Partial fifth Ray resection right foot. There is decreased range of motion of the ankle joint dorsiflexion decreased range of motion of the first metatarsophalangeal joint without pain or crepitus. Skin no rashes or lesions noted, skin turgor normal and no jaundice Neuro moves all extremities Debridement Note Debridement Note Wound debrided: Subfifth metatarsal base right foot Laterality: Right Wound Grade/Stage: Francois stage I Type of Debridement: Excisional debridement Anesthesia Used: 5% Lidocaine Gel Depth: Down to and including healthy tissue and in the subcutaneous layer Percentage of wound debrided: 100 Instrument Used: 5mm curette Tissue Removed: Fibrous, devitalized subcutaneous, biofilm, slough Severity: Fat Layer Exposed Amount of bleeding with debridement: Mild Bleeding Controlled with: Compression and gauze Patient tolerated procedure: Patient tolerated procedure well Post-Debridement Measurements and Additional Note: Post-Debridement Measurements/Treatment LC - Nurse 1 - General Ulcer Assessment Start: 08/11/23 10:33 Freq: Status: Active Protocol: LIZZETTE Activity Type Activity Date Activity User E-sign Co-sign Detail Recorded Client Recorded Date Recorded By Document 08/11/23 10:34 OH Desktop 08/11/23 10:40 OH 08/11/23 10:34 WC - Today's Visit Information Type of service Follow-up Visit (Physician/PHOTOGRAPHY EDITOR ) Arrival Mode Ambulatory, Crutches Accompanied by self Patient Identification Verified (Name & Yes ) Safety Precautions Fall Prevention Height and Weight Body Mass Index (BMI) 35.2 BMI Classification Obese Vital Signs Temperature (97.8 F-99.1 F) 98 F Temperature Source Temporal Pulse Rate (60-100) 106 H Pulse Location Monitor Respiratory Rate (12-18) 18 Respiratory rate source Observation Oxygen Delivery Method Room Air Blood Pressure (90/60-120/80) 152/82 H Blood Pressure Mean (mm Hg) 105 Source Monitor Position Sitting Blood Pressure Location Left Arm History Since Last Visit- (Skip if this is Patient's initial visit) Has compression in place as prescribed N/A Has offloadiing in place as prescribed N/A Left Footwear Regular Shoe Right Footwear Wedge Shoe Pain Scale: 0-10 Numeric Is Patient Pain Free? Yes WC - Nurse 1 - General Ulcer Measurement Start: 08/11/23 10:33 Freq: Status: Active Protocol: Activity Type Activity Date Activity User E-sign Co-sign Detail Recorded Client Recorded Date Recorded By Document 08/11/23 10:34 OH [employer] 08/11/23 10:40 OH 08/11/23 10:34 Wound Center Nurse 1 #15 RT LAT FT -Current Size (cm) - Length 1.2 -Current Size (cm) - Width 0.6 -Current Size (cm) - Depth 0.1 -Total Square Cm 0.72 -Epithelialization Large 67-100% -Exudate Amt Small -Exudate Type Serous -Wound Margin Flat & Intact -Granulation Amt Large (67-100%) -Granulation Quality Pale,Arena -Necrosis Amt None Present (0 %) -Texture (Susana-wound Skin Appearance) Assessed -Moisture (Susana-wound Skin Appearance) Assessed -Color (Susana-wound Skin Appearance) Assessed -Temperature (Susana-wound Skin No Abnormality Appearance) (Pt Warm) -Tenderness on Palpation (Suasna-wound No Skin Appearance) -Ulcer Cleansing Rinsed/ Irrigated with Saline -Foul Odor after Cleansing No -Anesthetic Used 5% Lidocaine Gel Lower Limb Edema Present NA WC - Nurse 2 - General Ulcer CM Notes Start: 08/11/23 10:33 Freq: Status: Active Protocol: Activity Type Activity Date Activity User E-sign Co-sign Detail Recorded Client Recorded Date Recorded By Document 08/11/23 11:48 BMF Desktop 08/11/23 11:50 BMF 08/11/23 11:48 Wound Center Nurse 2 #15 RT LAT FT -Time 11:48 -Correct Patient Yes -Correct Side, Site, Position Yes -Correct Procedure Yes -Procedure Performed Yes -Type of Procedure Debridement -Clinical Debridement Subcutaneous -Tissue Removed Subcutaneous -Post Debridement (cm) - Length 1.3 -Post Debridement (cm) - Width 0.5 -Post Debridement (cm) - Depth 0.1 -Total Square (Post) (cm) 0.65 -Area of Debridement (cm) - Length 1.3 -Area of Debridement (cm) - Width 0.5 -Total Square (Area) (cm) 0.65 -Tunneling No -Undermining/Tunneling No -Circular Undermining No -Wound/Ulcer Outcome Not Healed -Ulcer Cleansing Rinsed/ Irrigated with Saline -Foul Odor after Cleansing No -Bioengineered Tissue No -Bleeding Controlled with Pressure -Treatment Response Procedure Tolerated Well -Offloading No -Debridement - Subq, 1st 20sq cm Yes Pain Scale: 0-10 Numeric Is Patient Pain Free? Yes - Nurse 3 - General Ulcer D/C NN Start: 08/11/23 10:33 Freq: Status: Active Protocol: Activity Type Activity Date Activity User E-sign Co-sign Detail Recorded Client Recorded Date Recorded By Document 08/11/23 12:02 DL Desktop 08/11/23 12:03 DL 08/11/23 12:02 Wound Care Center Nurse 3 #15 RT LAT FT -Ulcer Cleansing Rinsed/ Irrigated with Saline -Foul Odor after Cleansing No -Other Dressing dakins/ABD -Primary Dressing Covered/Secured with Dry Gauze & Roll Gauze, Secured with Tape Treatment Response Procedure Tolerated Well Pain Scale: 0-10 Numeric Is Patient Pain Free? Yes - Visit Discharge Discharge Condition Stable Ambulatory Status Ambulatory, Walker Transportation Private Auto Facility Type Home Health Orders Sent Yes Assessment/Plan Assessment/Plan (1) Ulcer of right foot with fat layer exposed: CODE(S): L97.512 - Non-pressure chronic ulcer of other part of right foot with fat layer exposed (2) Type 2 diabetes mellitus with diabetic polyneuropathy: CODE(S): E11.42 - Type 2 diabetes mellitus with diabetic polyneuropathy (3) Type 2 diabetes mellitus with foot ulcer: CODE(S): E11.621 - Type 2 diabetes mellitus with foot ulcer; L97.509 - Non-pressure chronic ulcer of other part of unspecified foot with unspecified severity (4) Venous insufficiency: CODE(S): I87.2 - Venous insufficiency (chronic) (peripheral) (5) Leg edema: CODE(S): R60.0 - Localized edema (6) Other specified peripheral vascular diseases: CODE(S): I73.89 - Other specified peripheral vascular diseases PLAN: Plan Patient seen and evaluated Ulceration to the plantar aspect of the right foot underwent debridement as noted in clinical panel above. Ulceration measures 1.3 cm x 0.5 cm x 0.1 cm. No signs of infection. Dakin's wet-to-dry applied to the wound base and dressed with dry sterile dressing. He was placed back into his CAM boot with plantar offloading padding and instructed to remain nonweightbearing to the right foot with the assistance of crutches. He is to change dressing daily. Wound demonstrates continued improvement with reduction in size vs previous visit. He has been approved for EpiFix as of 08/03/23. Patient states that he would have to pay a portion of this deductible towards the graft and he is unsure now if he would wish to proceed forward with applications. Labs ordered including HgbA1c, patient has not obtained. This was discussed to get this done. Previous A1c on record from 12/04/2021 was 6.2%. Radiographs obtained 06/14/2023 negative for osteomyelitis. Venous studies performed 06/14/2023 and are negative for DVT. He does have segmental valvular incompetence noted within the great saphenous veins bilaterally. Accessory saphenous vein in the right mid thigh is incompetent. Accessory saphenous vein in the left mid calf is incompetent. LEAS performed 06/14/2023: LLE?DP artery biphasic, PT artery monophasic; PT and DP PT artery noncompressible. PT artery indices 0.49, left DP indices 0.82, left digital brachial indices 0.74. RLE?right PT artery triphasic. PT and DP noncompressible. Right digital brachial indices 0.47. Interpretation: PVRs diminished at the ankle and digital levels on the left with right undetermined due to noncompressibility of the vasculature at the ankle level on the right. There is evidence of moderate arterial occlusive disease in the lower extremities bilateral. He has been referred to Dr. Harrington and has appointment with him next week. Discussed the importance of continued offloading in CAM boot with plantar offloading padding and to remain nonweightbearing to the right lower extremity with the assistance of crutches to aid in wound healing. Discussed that his foot type with prominent fifth metatarsal base secondary to his foot deformity will continue to create problems with wounds and healing and that he should always remain in diabetic shoe gear with protective offloading inserts. Discussed proper diabetic diet to aid in continued wound healing. Stressed importance of maintaining tight glycemic control to aid in wound healing. Discussed importance of daily foot checks and to never walk barefoot. Discussed socks include barefoot. Discussed adequate protein intake for continued wound healing. Toni supplementation also recommended. Discussed signs and symptoms of infection. Discussed if he notices redness about the wound that spreads on top of the foot or up the leg, if he has any purulent drainage from the wound site, has increasing foul odor to the wound, or if he experiences fever greater than 101 accompanied by nausea, vomiting, fever, chills these are signs of a progressing infection and he should report to the ED for IV antibiotics. He voices understanding of this. The following work up and care recommendations were made: Dressing: Dakin's wet-to-dry dressing and dry sterile dressing, change daily. Wash: Soap and water Tissue growth optimization: Dakin's Offload: CAM boot to the right foot with plantar offloading padding. He is to remain nonweightbearing with the assistance of crutches to the right foot Vascular: History of vascular disease. DP and PT pulses were palpable with adequate capillary fill time. Do not feel vascular status is impacting healing at this time. Edema: Recommended Tubigrip compression and following wound healing compression stockings 20 to 30 mmHg. Infection: No signs of infection. Patient currently finishing oral antibiotic course Pain: No pain secondary to diabetic peripheral polyneuropathy. May take [id number] Tylenol Extra Strength as needed for discomfort Host factors: DM type II with peripheral polyneuropathy, cavus foot, excessive pressure, obesity I answered all the patient's questions. To return to the wound healing center in 1 week or call sooner if the patient has any questions or concerns.
[2023-08-18 10:16] VITALS: RESP 18; TEMP 36.2; BMI 35.2
--- NOTE | 2023-08-18 10:28 | PCM.WC.PN ---
History of Present Illness Date of Service: 08/18/23 Chief Complaint: left foot ulcers History of Wound: This 57-year-old male presents to the wound care center as referral by his internal sales engineer Dr. Enciso for plantar right foot ulceration. He has PMHx of bilateral foot wounds, partial fifth ray resection right foot, DM type II with peripheral polyneuropathy, cavovarus deformity right foot, chronic venous insufficiency, lower extremity edema, HTN, obesity. He states he did receive new shoes for Rohith and 2 days later on May 04, 2023 states that he had new wound development to the plantar aspect of the fifth metatarsal base of the right foot. He states he feels that shoes were too tight. He does have peripheral polyneuropathy and did not notice they were too tight until wound developed. He did go to urgent care and received 7-day course of doxycycline. He did finish antibiotic course to completion and followed up with his internal sales engineer in office and underwent debridement with Betadine to the wound margin and Aquacel to the wound base. He was dressed and dry sterile dressing and offloading in CAM boot and has remained nonweightbearing with the assistance of crutches. At this time he was urged to go to hospital for further treatment given history of infection and amputation however he did refuse at this time and requested evaluation at the wound care center. He was thus started on Augmentin and Cipro and is currently finishing oral antibiotic course. He states he is continue to remain nonweightbearing and changing dressings daily. He currently denies N/V/F/chills. Denies further complaints. Subjective Subjective Patient is a 58-year-old male who follows to the wound care center today for continued care of plantar subfifth metatarsal ulceration of the right foot. He continues to offloading CAM boot and has attempted to remain nonweightbearing with crutches. He does state difficulty with a nonweightbearing status at all times. He has continued to change dressings daily with Dakins. States ulcer is improving and continuing to get smaller each week. Denies constitutional symptoms. Denies further complaints. Objective Data Objective Data Vital Signs: Vital Signs Temp Pulse Resp BP O2 Del Method 97.1 F L 106 H 18 152/82 H Room Air 08/18/23 10:16 08/11/23 10:34 08/18/23 10:16 08/11/23 10:34 08/18/23 10:16 Oxygen Delivery Method Room Air Weight: 124.284 kg Body Mass Index (BMI) 35.2 Physical Exam Const alert, oriented x3 and no apparent distress General Appearance: cooperative HEENT normocephalic Eyes General Eye: normal appearance of both eyes Neck General: normal visual inspection Lymph Lymphatic: no lymphadenopathy noted and no lymphedema noted Resp normal respiratory effort Cardio regular rate and regular rhythm Extremity normal capillary refill, no joint enlargement, no calf tenderness and no pedal edema Extremity Narrative: Vascular: DP and PT pulses palpable. CFT less than 4 seconds to the digits. There is mild nonpitting edema about foot and ankle. Dermatological: There is a ulceration noted to the plantar aspect of the right foot subfifth metatarsal base/styloid process secondary to cavovarus deformity of the foot and continued pressure. Ulceration demonstrates fibrogranular base with scant serosanguineous drainage and healthy appearing tissue at the wound margins. No purulent drainage, no erythema, no malodor, no lymphangitic streaking, no palpable fluctuance/bogginess noted, no visible abscess formation. Musculoskeletal: Muscle strength 5 of 5 age-appropriate. Prominent styloid process fifth metatarsal base with cavovarus foot deformity. Partial fifth Ray resection right foot. There is decreased range of motion of the ankle joint dorsiflexion decreased range of motion of the first metatarsophalangeal joint without pain or crepitus. Skin no rashes or lesions noted, skin turgor normal and no jaundice Neuro moves all extremities Debridement Note Debridement Note Wound debrided: Subfifth metatarsal base right foot Laterality: Right Wound Grade/Stage: Francois stage I Type of Debridement: Excisional debridement Anesthesia Used: 5% Lidocaine Gel Depth: Down to and including healthy tissue and in the subcutaneous layer Percentage of wound debrided: 100 Instrument Used: 3mm curette and #15 blade Tissue Removed: Fibrous, devitalized subcutaneous, biofilm, slough Severity: Fat Layer Exposed Amount of bleeding with debridement: Mild Bleeding Controlled with: Compression and gauze Patient tolerated procedure: Patient tolerated procedure well Post-Debridement Measurements and Additional Note: Post-Debridement Measurements/Treatment LC - Nurse 1 - General Ulcer Assessment Start: 08/11/23 10:33 Freq: Status: Active Protocol: LIZZETTE Activity Type Activity Date Activity User E-sign Co-sign Detail Recorded Client Recorded Date Recorded By Document 08/11/23 10:34 SD Desktop 08/11/23 10:40 MT Document 08/18/23 10:16 KW Desktop 08/18/23 10:21 KW 08/11/23 08/18/23 10:34 10:16 - Today's Visit Information Type of service Follow-up Visit Follow-up Visit (Physician/AGRICULTURAL EXTENSION OFFICER (Physician/AGRICULTURAL EXTENSION OFFICER ) ) Arrival Mode Ambulatory, Ambulatory, Crutches Crutches Accompanied by self Patient Identification Verified (Name & Yes Yes ) Safety Precautions Fall Prevention Height and Weight Body Mass Index (BMI) 35.2 35.2 BMI Classification Obese Obese Vital Signs Temperature (97.8 F-99.1 F) 98 F 97.1 F L Temperature Source Temporal Temporal Pulse Rate (60-100) 106 H Pulse Location Monitor Monitor Respiratory Rate (12-18) 18 18 Respiratory rate source Observation Observation Oxygen Delivery Method Room Air Room Air Blood Pressure (90/60-120/80) 152/82 H Blood Pressure Mean (mm Hg) 105 Source Monitor Monitor Position Sitting Semi-Fowlers Blood Pressure Location Left Arm Left Arm History Since Last Visit- (Skip if this is Patient's initial visit) Have you changed medications since your No last visit? Any new allergies or adverse reactions No Had a fall/change in ADL's that may No increase risk of falls Signs or symptoms of abuse and/or No neglect since last visit Have you been in the hospital since your No last visit? Has dressing in place as prescribed Yes Has compression in place as prescribed N/A N/A Has offloadiing in place as prescribed N/A Yes Experienced any changes in pain level or No management Left Footwear Regular Shoe Regular Shoe Right Footwear Wedge Shoe Removable Cast Walker/Walking Boot Pain Scale: 0-10 Numeric Is Patient Pain Free? Yes Yes - Nurse 1 - General Ulcer Measurement Start: 08/11/23 10:33 Freq: Status: Active Protocol: Activity Type Activity Date Activity User E-sign Co-sign Detail Recorded Client Recorded Date Recorded By Document 08/11/23 10:34 SD [email or web address] 08/11/23 10:40 MT Document 08/18/23 10:16 KW Desktop 08/18/23 10:21 KW 08/11/23 08/18/23 10:34 10:16 Wound Center Nurse 1 #15 RT LAT FT -Current Size (cm) - Length 1.2 1.1 -Current Size (cm) - Width 0.6 0.3 -Current Size (cm) - Depth 0.1 0.1 -Total Square Cm 0.72 0.33 -Date of Last Picture (Recall this 08/18/23 field) -Photo Taken Yes -Epithelialization Large 67-100% -Exudate Amt Small Small -Exudate Type Serous Serosanguineous -Wound Margin Flat & Intact Distinct, Outline Attached -Granulation Amt Large (67-100%) Large (67-100%) -Granulation Quality Pale,[place] Red -Necrosis Amt None Present (0 Small (1-33%) %) -Necrotic Tissue Type Adherent Slough -Texture (Susana-wound Skin Appearance) Assessed Assessed,Callus -Moisture (Susana-wound Skin Appearance) Assessed Assessed -Color (Susana-wound Skin Appearance) Assessed Assessed -Temperature (Susana-wound Skin No Abnormality No Abnormality Appearance) (Pt Warm) (Pt Warm) -Tenderness on Palpation (Susana-wound No Skin Appearance) -Ulcer Cleansing Rinsed/ Rinsed/ Irrigated with Irrigated with Saline Saline -Foul Odor after Cleansing No No -Anesthetic Used 5% Lidocaine 5% Lidocaine Gel Gel Lower Limb Edema Present NA - Nurse 2 - General Ulcer CM Notes Start: 08/11/23 10:33 Freq: Status: Active Protocol: Activity Type Activity Date Activity User E-sign Co-sign Detail Recorded Client Recorded Date Recorded By Document 08/11/23 11:48 [facility] Desktop 08/11/23 11:50 [facility] 08/11/23 11:48 Wound Center Nurse 2 -Time 11:48 -Correct Patient Yes -Correct Side, Site, Position Yes -Correct Procedure Yes -Procedure Performed Yes -Type of Procedure Debridement -Clinical Debridement Subcutaneous -Tissue Removed Subcutaneous -Post Debridement (cm) - Length 1.3 -Post Debridement (cm) - Width 0.5 -Post Debridement (cm) - Depth 0.1 -Total Square (Post) (cm) 0.65 -Area of Debridement (cm) - Length 1.3 -Area of Debridement (cm) - Width 0.5 -Total Square (Area) (cm) 0.65 -Tunneling No -Undermining/Tunneling No -Circular Undermining No -Wound/Ulcer Outcome Not Healed -Ulcer Cleansing Rinsed/ Irrigated with Saline -Foul Odor after Cleansing No -Bioengineered Tissue No -Bleeding Controlled with Pressure -Treatment Response Procedure Tolerated Well -Offloading No -Debridement - Subq, 1st 20sq cm Yes Pain Scale: 0-10 Numeric Is Patient Pain Free? Yes - Nurse 3 - General Ulcer D/C NN Start: 08/11/23 10:33 Freq: Status: Active Protocol: Activity Type Activity Date Activity User E-sign Co-sign Detail Recorded Client Recorded Date Recorded By Document 08/11/23 12:02 DL Desktop 08/11/23 12:03 DL 08/11/23 12:02 Wound Care Center Nurse 3 #15 RT LAT FT -Ulcer Cleansing Rinsed/ Irrigated with Saline -Foul Odor after Cleansing No -Other Dressing dakins/ABD -Primary Dressing Covered/Secured with Dry Gauze & Roll Gauze, Secured with Tape Treatment Response Procedure Tolerated Well Pain Scale: 0-10 Numeric Is Patient Pain Free? Yes - Visit Discharge Discharge Condition Stable Ambulatory Status Ambulatory, Walker Transportation [facility] Facility Type Home Health Orders Sent Yes Assessment/Plan Assessment/Plan (1) Ulcer of right foot with fat layer exposed: CODE(S): L97.512 - Non-pressure chronic ulcer of other part of right foot with fat layer exposed (2) Type 2 diabetes mellitus with diabetic polyneuropathy: CODE(S): E11.42 - Type 2 diabetes mellitus with diabetic polyneuropathy (3) Type 2 diabetes mellitus with foot ulcer: CODE(S): E11.621 - Type 2 diabetes mellitus with foot ulcer; L97.509 - Non-pressure chronic ulcer of other part of unspecified foot with unspecified severity (4) Venous insufficiency: CODE(S): I87.2 - Venous insufficiency (chronic) (peripheral) (5) Leg edema: CODE(S): R60.0 - Localized edema (6) Other specified peripheral vascular diseases: CODE(S): I73.89 - Other specified peripheral vascular diseases PLAN: Plan Patient seen and evaluated Ulceration to the plantar aspect of the right foot underwent debridement as noted in clinical panel above. Ulceration measures 1.0 cm x 0.4 cm x 0.1 cm. No signs of infection. Dakin's wet-to-dry applied to the wound base and dressed with dry sterile dressing. He was placed back into his CAM boot with plantar offloading padding and instructed to remain nonweightbearing to the right foot with the assistance of crutches. He is to change dressing daily. Wound demonstrates continued improvement with reduction in size vs previous visit. Continues to demonstrate good progress. He has been approved for EpiFix as of 08/03/23. Patient states that he would have to pay a portion of this deductible towards the graft and he is unsure now if he would wish to proceed forward with applications. Labs ordered including HgbA1c, patient has not obtained. This was discussed to get this done. Previous A1c on record from 12/04/2021 was 6.2%. Radiographs obtained 06/14/2023 negative for osteomyelitis. Venous studies performed 06/14/2023 and are negative for DVT. He does have segmental valvular incompetence noted within the great saphenous veins bilaterally. Accessory saphenous vein in the right mid thigh is incompetent. Accessory saphenous vein in the left mid calf is incompetent. LEAS performed 06/14/2023: LLE?DP artery biphasic, PT artery monophasic; PT and DP PT artery noncompressible. PT artery indices 0.49, left DP indices 0.82, left digital brachial indices 0.74. RLE?right PT artery triphasic. PT and DP noncompressible. Right digital brachial indices 0.47. Interpretation: PVRs diminished at the ankle and digital levels on the left with right undetermined due to noncompressibility of the vasculature at the ankle level on the right. There is evidence of moderate arterial occlusive disease in the lower extremities bilateral. He has been referred to Dr. Harrington and has appointment with him next week. Discussed the importance of continued offloading in CAM boot with plantar offloading padding and to remain nonweightbearing to the right lower extremity with the assistance of crutches to aid in wound healing. Discussed that his foot type with prominent fifth metatarsal base secondary to his foot deformity will continue to create problems with wounds and healing and that he should always remain in diabetic shoe gear with protective offloading inserts. Discussed proper diabetic diet to aid in continued wound healing. Stressed importance of maintaining tight glycemic control to aid in wound healing. Discussed importance of daily foot checks and to never walk barefoot. Discussed socks include barefoot. Discussed adequate protein intake for continued wound healing. Toni supplementation also recommended. Discussed signs and symptoms of infection. Discussed if he notices redness about the wound that spreads on top of the foot or up the leg, if he has any purulent drainage from the wound site, has increasing foul odor to the wound, or if he experiences fever greater than 101 accompanied by nausea, vomiting, fever, chills these are signs of a progressing infection and he should report to the ED for IV antibiotics. He voices understanding of this. The following work up and care recommendations were made: Dressing: Dakin's wet-to-dry dressing and dry sterile dressing, change daily. Wash: Soap and water Tissue growth optimization: Dakin's Offload: CAM boot to the right foot with plantar offloading padding. He is to remain nonweightbearing with the assistance of crutches to the right foot Vascular: History of vascular disease. DP and PT pulses were palpable with adequate capillary fill time. Do not feel vascular status is impacting healing at this time. Edema: Recommended Tubigrip compression and following wound healing compression stockings 20 to 30 mmHg. Infection: No signs of infection. Patient currently finishing oral antibiotic course Pain: No pain secondary to diabetic peripheral polyneuropathy. May take [id number] Tylenol Extra Strength as needed for discomfort Host factors: DM type II with peripheral polyneuropathy, cavus foot, excessive pressure, obesity I answered all the patient's questions. To return to the wound healing center in 1 week or call sooner if the patient has any questions or concerns.
[2023-08-25 10:13] VITALS: BP 152/75; PULSE 96; RESP 15; TEMP 36.6; BMI 35.2
--- NOTE | 2023-08-25 11:31 | PN.PCM_ITS ---
History of Present Illness Date of Service: 08/25/23 Chief Complaint: left foot ulcers History of Wound: This 57-year-old male presents to the wound care center as referral by his wheel alignment mechanic Dr. Enciso for plantar right foot ulceration. He has PMHx of bilateral foot wounds, partial fifth ray resection right foot, DM type II with peripheral polyneuropathy, cavovarus deformity right foot, chronic venous insufficiency, lower extremity edema, HTN, obesity. He states he did receive new shoes for [place] and 2 days later on May 04, 2023 states that he had new wound development to the plantar aspect of the fifth metatarsal base of the right foot. He states he feels that shoes were too tight. He does have peripheral polyneuropathy and did not notice they were too tight until wound developed. He did go to urgent care and received 7-day course of doxycycline. He did finish antibiotic course to completion and followed up with his wheel alignment mechanic in office and underwent debridement with Betadine to the wound margin and Aquacel to the wound base. He was dressed and dry sterile dressing and offloading in CAM boot and has remained nonweightbearing with the assistance of crutches. At this time he was urged to go to hospital for further treatment given history of infection and amputation however he did refuse at this time and requested evaluation at the wound care center. He was thus started on Augmentin and Cipro and is currently finishing oral antibiotic course. He states he is c ontinue to remain nonweightbearing and changing dressings daily. He currently denies N/V/F/chills. Denies further complaints. Subjective Subjective Patient is a 58-year-old male who follows to the wound care center today for continued care of plantar subfifth metatarsal ulceration of the right foot. He continues to offloading CAM boot and has attempted to remain nonweightbearing with crutches. He does state difficulty with a nonweightbearing status at all times and did have to walk recently to aid his mother to the hospital. He has continued to change dressings daily with Dakins. States ulcer is improving nearly healed. Denies constitutional symptoms. Denies further complaints. Objective Data Objective Data Vital Signs: Vital Signs Temp Pulse Resp BP O2 Del Method 98 F 96 15 152/75 H Room Air 08/25/23 10:13 08/25/23 10:13 08/25/23 10:13 08/25/23 10:13 08/18/23 10:16 Oxygen Delivery Method Room Air Weight: 124.284 kg Body Mass Index (BMI) 35.2 Physical Exam Const alert, oriented x3 and no apparent distress General Appearance: cooperative HEENT normocephalic Eyes General Eye: normal appearance of both eyes Neck General: normal visual inspection Lymph Lymphatic: no lymphadenopathy noted and no lymphedema noted Resp normal respiratory effort Cardio regular rate and regular rhythm Extremity normal capillary refill, no joint enlargement, no calf tenderness and no pedal edema Extremity Narrative: Vascular: DP and PT pulses palpable. CFT less than 4 seconds to the digits. There is mild nonpitting edema about foot and ankle. Dermatological: There is a ulceration noted to the plantar aspect of the right foot subfifth metatarsal base/styloid process secondary to cavovarus deformity of the foot and continued pressure. Ulceration demonstrates granular base with scant serosanguineous drainage and healthy appearing tissue at the wound margins. No purulent drainage, no erythema, no malodor, no lymphangitic streaking, no palpable fluctuance/bogginess noted, no visible abscess formation. Musculoskeletal: Muscle strength 5 of 5 age-appropriate. Prominent styloid process fifth metatarsal base with cavovarus foot deformity. Partial fifth Ray resection right foot. There is decreased range of motion of the ankle joint dorsiflexion decreased range of motion of the first metatarsophalangeal joint without pain or crepitus. Skin no rashes or lesions noted, skin turgor normal and no jaundice Neuro moves all extremities Debridement Note Debridement Note Wound debrided: Subfifth metatarsal right foot Laterality: Right Wound Grade/Stage: Francois stage I Type of Debridement: Excisional debridement Anesthesia Used: 5% Lidocaine Gel Depth: Down to and including healthy tissue and in the subcutaneous layer Percentage of wound debrided: 100 Instrument Used: #15 blade Tissue Removed: Fibrous, devitalized subcutaneous, biofilm, slough Severity: Fat Layer Exposed Amount of bleeding with debridement: Mild Bleeding Controlled with: Compression and gauze Patient tolerated procedure: Patient tolerated procedure well Post-Debridement Measurements and Additional Note: Post-Debridement Measurements/Treatment LC - Nurse 1 - General Ulcer Assessment Start: 08/11/23 10:33 Freq: Status: Active Protocol: LIZZETTE Activity Type Activity Date Activity User E-sign Co-sign Detail Recorded Client Recorded Date Recorded By Document 08/11/23 10:34 MT Desktop 08/11/23 10:40 MT Document 08/18/23 10:16 KW Desktop 08/18/23 10:21 KW Document 08/25/23 10:13 ML Desktop 08/25/23 10:23 ML 08/11/23 08/18/23 08/25/23 10:34 10:16 10:13 WC - Today's Visit Information Type of service Follow-up Visit Follow-up Visit Follow-up Visit (Physician/SPIRAL WINDING MACHINE HELPER (Physician/SPIRAL WINDING MACHINE HELPER (Physician/SPIRAL WINDING MACHINE HELPER ) ) ) Arrival Mode Ambulatory, Ambulatory, Crutches Crutches Crutches Transfer Assistance None Accompanied by self Patient Identification Verified (Name & Yes Yes Yes ) Patient Requires Transmission-Based No Precautions Safety Precautions Fall Prevention Finger Stick Blood Sugar(mg/dl) (if 113 indicated): Blood Sugar Stated by Patient Height and Weight Body Mass Index (BMI) 35.2 35.2 35.2 BMI Classification Obese Obese Obese Vital Signs Temperature (97.8 F-99.1 F) 98 F 97.1 F L 98 F Temperature Source Temporal Temporal Temporal Pulse Rate (60-100) 106 H 96 Pulse Location Monitor Monitor Monitor Respiratory Rate (12-18) 18 18 15 Respiratory rate source Observation Observation Observation Oxygen Delivery Method Room Air Room Air Blood Pressure (90/60-120/80) 152/82 H 152/75 H Blood Pressure Mean (mm Hg) 105 100 Source Monitor Monitor Monitor Position Sitting Semi-Fowlers Blood Pressure Location Left Arm Left Arm History Since Last Visit- (Skip if this is Patient's initial visit) Have you changed medications since your No No last visit? Any new allergies or adverse reactions No No Had a fall/change in ADL's that may No No increase risk of falls Signs or symptoms of abuse and/or No No neglect since last visit Have you been in the hospital since your No Yes last visit? Has dressing in place as prescribed Yes Yes Has compression in place as prescribed N/A N/A N/A Has offloadiing in place as prescribed N/A Yes Yes Experienced any changes in pain level or No management Left Footwear Regular Shoe Regular Shoe Removable Cast Walker/Walking Boot Right Footwear Wedge Shoe Removable Cast Regular Shoe Walker/Walking Boot Pain Scale: 0-10 Numeric Is Patient Pain Free? Yes Yes Yes WC - Nurse 1 - General Ulcer Measurement Start: 08/11/23 10:33 Freq: Status: Active Protocol: Activity Type Activity Date Activity User E-sign Co-sign Detail Recorded Client Recorded Date Recorded By Document 08/11/23 10:34 MT Desktop 08/11/23 10:40 MT Document 08/18/23 10:16 KW Desktop 08/18/23 10:21 KW Document 08/25/23 10:13 ML Desktop 08/25/23 10:23 ML 08/11/23 08/18/23 08/25/23 10:34 10:16 10:13 Wound Center Nurse 1 #15 RT LAT FT -Current Size (cm) - Length 1.2 1.1 1 -Current Size (cm) - Width 0.6 0.3 0.2 -Current Size (cm) - Depth 0.1 0.1 0.2 -Total Square Cm 0.72 0.33 0.2 -Date of Last Picture (Recall this 08/18/23 field) -Photo Taken Yes -Epithelialization Large 67-100% -Circular Undermining No -Exudate Amt Small Small Small -Exudate Type Serous Serosanguineous -Wound Margin Flat & Intact Distinct, Distinct, Outline Outline Attached Attached -Granulation Amt Large (67-100%) Large (67-100%) Medium (34-66%) -Granulation Quality Pale,[place] Red -Slough/Fibrin Yes -Necrosis Amt None Present (0 Small (1-33%) Medium (34-66%) %) -Necrotic Tissue Type Adherent Slough Adherent Slough -Texture (Susana-wound Skin Appearance) Assessed Assessed,Callus No Abnormality -Moisture (Susana-wound Skin Appearance) Assessed Assessed -Color (Susana-wound Skin Appearance) Assessed Assessed No Abnormality -Temperature (Susana-wound Skin No Abnormality No Abnormality No Abnormality Appearance) (Pt Warm) (Pt Warm) (Pt Warm) -Tenderness on Palpation (Susana-wound No No Skin Appearance) -Ulcer Cleansing Rinsed/ Rinsed/ Rinsed/ Irrigated with Irrigated with Irrigated with Saline Saline Saline -Foul Odor after Cleansing No No No -Anesthetic Used 5% Lidocaine 5% Lidocaine 5% Lidocaine Gel Gel Gel Lower Limb Edema Present NA WC - Nurse 2 - General Ulcer CM Notes Start: 08/11/23 10:33 Freq: Status: Active Protocol: Activity Type Activity Date Activity User E-sign Co-sign Detail Recorded Client Recorded Date Recorded By Document 08/11/23 11:48 [facility] Desktop 08/11/23 11:50 [facility] Document 08/18/23 10:48 [facility] Desktop 08/18/23 10:51 [facility] Document 08/25/23 10:54 [facility] Desktop 08/25/23 10:58 [facility] 08/11/23 08/18/23 08/25/23 11:48 10:48 10:54 Wound Center Nurse 2 #15 RT LAT FT -Time 11:48 10:48 10:55 -Correct Patient Yes Yes Yes -Correct Side, Site, Position Yes Yes Yes -Correct Procedure Yes Yes Yes -Procedure Performed Yes Yes Yes -Type of Procedure Debridement Debridement Debridement -Clinical Debridement Subcutaneous Subcutaneous Subcutaneous -Tissue Removed Subcutaneous Subcutaneous Subcutaneous -Post Debridement (cm) - Length 1.3 1 0.9 -Post Debridement (cm) - Width 0.5 0.4 0.2 -Post Debridement (cm) - Depth 0.1 0.1 0.1 -Total Square (Post) (cm) 0.65 0.4 0.18 -Area of Debridement (cm) - Length 1.3 1 0.9 -Area of Debridement (cm) - Width 0.5 0.4 0.2 -Total Square (Area) (cm) 0.65 0.4 0.18 -Tunneling No No No -Undermining/Tunneling No No No -Circular Undermining No No No -Wound/Ulcer Outcome Not Healed Not Healed Not Healed -Ulcer Cleansing Rinsed/ Rinsed/ Rinsed/ Irrigated with Irrigated with Irrigated with Saline Saline Saline -Foul Odor after Cleansing No No No -Bioengineered Tissue No No No -Bleeding Controlled with Pressure Pressure Pressure -Treatment Response Procedure Procedure Procedure Tolerated Well Tolerated Well Tolerated Well -Offloading No No -Debridement - Subq, 1st 20sq cm Yes Yes Yes Pain Scale: 0-10 Numeric Is Patient Pain Free? Yes Yes Yes WC - Nurse 3 - General Ulcer D/C NN Start: 08/11/23 10:33 Freq: Status: Active Protocol: Activity Type Activity Date Activity User E-sign Co-sign Detail Recorded Client Recorded Date Recorded By Document 08/11/23 12:02 DL Desktop 08/11/23 12:03 DL Document 08/18/23 11:00 [facility] Desktop 08/18/23 11:00 [facility] Document 08/25/23 11:07 DL Desktop 08/25/23 11:08 DL 08/11/23 08/18/23 08/25/23 12:02 11:00 11:07 Wound Care Center Nurse 3 #15 RT LAT FT -Ulcer Cleansing Rinsed/ Rinsed/ Rinsed/ Irrigated with Irrigated with Irrigated with Saline Saline Saline -Foul Odor after Cleansing No No No -Other Dressing dakins/ABD dakins moist dakins gauze -Primary Dressing Covered/Secured with Dry Gauze & Secured with Dry Gauze & Roll Gauze, Tape Roll Gauze, Secured with Secured with Tape Tape -Other Covering drsg per cp rn ABD Treatment Response Procedure Procedure Procedure Tolerated Well Tolerated Well Tolerated Well Pain Scale: 0-10 Numeric Is Patient Pain Free? Yes Yes Yes WC - Visit Discharge Discharge Condition Stable Stable Stable Ambulatory Status Ambulatory, Ambulatory, Ambulatory Walker Crutches Transportation Private Auto Private Auto Private Auto Facility Type Home Health Orders Sent Yes Assessment/Plan Assessment/Plan (1) Ulcer of right foot with fat layer exposed: CODE(S): L97.512 - Non-pressure chronic ulcer of other part of right foot with fat layer exposed (2) Type 2 diabetes mellitus with diabetic polyneuropathy: CODE(S): E11.42 - Type 2 diabetes mellitus with diabetic polyneuropathy (3) Type 2 diabetes mellitus with foot ulcer: CODE(S): E11.621 - Type 2 diabetes mellitus with foot ulcer; L97.509 - Non-pressure chronic ulcer of other part of unspecified foot with unspecified severity (4) Venous insufficiency: CODE(S): I87.2 - Venous insufficiency (chronic) (peripheral) (5) Leg edema: CODE(S): R60.0 - Localized edema (6) Other specified peripheral vascular diseases: CODE(S): I73.89 - Other specified peripheral vascular diseases PLAN: Plan Patient seen and evaluated Ulceration to the plantar aspect of the right foot underwent debridement as noted in clinical panel above. Ulceration measures 1.0 cm x 0.2 cm x 0.1 cm. No signs of infection. Dakin's wet-to-dry applied to the wound base and dressed with dry sterile dressing. He was placed back into his CAM boot with plantar offloading padding and instructed to remain nonweightbearing to the right foot with the assistance of crutches. He is to change dressing daily. Wound demonstrates continued improvement with reduction in size vs previous visit. Continues to demonstrate good progress and is nearly healed. He has been approved for EpiFix as of 08/03/23. Patient states that he would have to pay a portion of this deductible towards the graft and he is unsure now if he would wish to proceed forward with applications. Labs ordered including HgbA1c, patient has not obtained. This was discussed to get this done. Previous A1c on record from 12/04/2021 was 6.2%. Radiographs obtained 06/14/2023 negative for osteomyelitis. Venous studies performed 06/14/2023 and are negative for DVT. He does have segmental valvular incompetence noted within the great saphenous veins bilaterally. Accessory saphenous vein in the right mid thigh is incompetent. Accessory saphenous vein in the left mid calf is incompetent. LEAS performed 06/14/2023: LLE?DP artery biphasic, PT artery monophasic; PT and DP PT artery noncompressible. PT artery indices 0.49, left DP indices 0.82, left digital brachial indices 0.74. RLE?right PT artery triphasic. PT and DP noncompressible. Right digital brachial indices 0.47. Interpretation: PVRs diminished at the ankle and digital levels on the left with right undetermined due to noncompressibility of the vasculature at the ankle level on the right. There is evidence of moderate arterial occlusive disease in the lower extremities bilateral. He has been referred to Dr. Harrington and has appointment with him next week. Discussed the importance of continued offloading in CAM boot with plantar offloading padding and to remain nonweightbearing to the right lower extremity with the assistance of crutches to aid in wound healing. Discussed that his foot type with prominent fifth metatarsal base secondary to his foot deformity will continue to create problems with wounds and healing and that he should always remain in diabetic shoe gear with protective offloading inserts. Discussed proper diabetic diet to aid in continued wound healing. Stressed importance of maintaining tight glycemic control to aid in wound healing. Discussed importance of daily foot checks and to never walk barefoot. Discussed socks include barefoot. Discussed adequate protein intake for continued wound healing. Toni supplementation also recommended. Discussed signs and symptoms of infection. Discussed if he notices redness about the wound that spreads on top of the foot or up the leg, if he has any purulent drainage from the wound site, has increasing foul odor to the wound, or if he experiences fever greater than 101 accompanied by nausea, vomiting, fever, chills these are signs of a progressing infection and he should report to the ED for IV antibiotics. He voices understanding of this. The following work up and care recommendations were made: Dressing: Dakin's wet-to-dry dressing and dry sterile dressing, change daily. Wash: Soap and water Tissue growth optimization: Dakin's Offload: CAM boot to the right foot with plantar offloading padding. He is to remain nonweightbearing with the assistance of crutches to the right foot Vascular: History of vascular disease. DP and PT pulses were palpable with adequate capillary fill time. Do not feel vascular status is impacting healing at this time. Edema: Recommended Tubigrip compression and following wound healing compression stockings 20 to 30 mmHg. Infection: No signs of infection. Patient currently finishing oral antibiotic course Pain: No pain secondary to diabetic peripheral polyneuropathy. May take [id number] Tylenol Extra Strength as needed for discomfort Host factors: DM type II with peripheral polyneuropathy, cavus foot, excessive pressure, obesity I answered all the patient's questions. To return to the wound healing center in 1 week or call sooner if the patient has any questions or concerns.
--- NOTE | 2023-08-29 09:36 | WC ---
08/18/2023 RIGHT LATERAL FT
[2023-09-01 10:17] VITALS: BP 136/72; PULSE 89; RESP 20; TEMP 37.1; BMI 35.2
--- NOTE | 2023-09-01 10:55 | PCM.WC.PN ---
"History of Present Illness Date of Service: 09/01/23 Chief Complaint: left foot ulcers History of Wound: This 57-year-old male presents to the wound care center as referral by his auto technician mechanic Dr. Enciso for plantar right foot ulceration. He has PMHx of bilateral foot wounds, partial fifth ray resection right foot, DM type II with peripheral polyneuropathy, cavovarus deformity right foot, chronic venous insufficiency, lower extremity edema, HTN, obesity. He states he did receive new shoes for [place] and 2 days later on May 04, 2023 states that he had new wound development to the plantar aspect of the fifth metatarsal base of the right foot. He states he feels that shoes were too tight. He does have peripheral polyneuropathy and did not notice they were too tight until wound developed. He did go to urgent care and received 7-day course of doxycycline. He did finish antibiotic course to completion and followed up with his auto technician mechanic in office and underwent debridement with Betadine to the wound margin and Aquacel to the wound base. He was dressed and dry sterile dressing and offloading in CAM boot and has remained nonweightbearing with the assistance of crutches. At this time he was urged to go to hospital for further treatment given history of infection and amputation however he did refuse at this time and requested evaluation at the wound care center. He was thus started on Augmentin and Cipro and is currently finishing oral antibiotic course. He states he is continue to remain nonweightbearing and changing dressings daily. He currently denies N/V/F/chills. Denies further complaints. Subjective Subjective Patient is a 58-year-old male who follows to the wound care center today for continued care of plantar subfifth metatarsal ulceration of the right foot. He continues to offloading CAM boot and has attempted to remain nonweightbearing with crutches. He does state difficulty with a nonweightbearing status at all times and did have to walk recently to aid his mother to the hospital. He has continued to change dressings daily with Dakins. States ulcer is continues to improve and nearly healed. Denies constitutional symptoms. Denies further complaints. Objective Data Objective Data Vital Signs: Vital Signs Temp Pulse Resp BP O2 Del Method 98.7 F 89 20 H 136/72 H Room Air 09/01/23 10:17 09/01/23 10:17 09/01/23 10:17 09/01/23 10:17 08/18/23 10:16 Oxygen Delivery Method Room Air Weight: 124.284 kg Body Mass Index (BMI) 35.2 Physical Exam Const alert, oriented x3 and no apparent distress General Appearance: cooperative HEENT normocephalic Eyes General Eye: normal appearance of both eyes Neck General: normal visual inspection Lymph Lymphatic: no lymphadenopathy noted and no lymphedema noted Resp normal respiratory effort Cardio regular rate and regular rhythm Extremity normal capillary refill, no joint enlargement, no calf tenderness and no pedal edema Extremity Narrative: Vascular: DP and PT pulses palpable. CFT less than 4 seconds to the digits. There is mild nonpitting edema about foot and ankle. Dermatological: There is a ulceration noted to the plantar aspect of the right foot subfifth metatarsal base/styloid process secondary to cavovarus deformity of the foot and continued pressure. Ulceration demonstrates granular base with scant serosanguineous drainage and healthy appearing tissue at the wound margins. No purulent drainage, no erythema, no malodor, no lymphangitic streaking, no palpable fluctuance/bogginess noted, no visible abscess formation. Musculoskeletal: Muscle strength 5 of 5 age-appropriate. Prominent styloid process fifth metatarsal base with cavovarus foot deformity. Partial fifth Ray resection right foot. There is decreased range of motion of the ankle joint dorsiflexion decreased range of motion of the first metatarsophalangeal joint without pain or crepitus. Skin no rashes or lesions noted, skin turgor normal and no jaundice Neuro moves all extremities Debridement Note Debridement Note Wound debrided: Subfifth metatarsal base right foot Laterality: Right Wound Grade/Stage: Francois stage I Type of Debridement: Excisional debridement Anesthesia Used: 5% Lidocaine Gel Depth: Down to and including healthy tissue and in the subcutaneous layer Percentage of wound debrided: 100 Instrument Used: #15 blade Tissue Removed: Fibrous, devitalized subcutaneous, biofilm, slough Severity: Fat Layer Exposed Amount of bleeding with debridement: Mild Bleeding Controlled with: Compression and gauze Patient tolerated procedure: Patient tolerated procedure well Post-Debridement Measurements and Additional Note: Post-Debridement Measurements/Treatment LC - Nurse 1 - General Ulcer Assessment Start: 08/11/23 10:33 Freq: Status: Active Protocol: LC.[id number] Activity Type Activity Date Activity User E-sign Co-sign Detail Recorded Client Recorded Date Recorded By Document 08/11/23 10:34 MT Desktop 08/11/23 10:40 MT Document 08/18/23 10:16 KW Desktop 08/18/23 10:21 KW Document 08/25/23 10:13 ML Desktop 08/25/23 10:23 ML Document 09/01/23 10:17 DL Desktop 09/01/23 10:24 DL 08/11/23 08/18/23 08/25/23 10:34 10:16 10:13 WC - Today's Visit Information Type of service Follow-up Visit Follow-up Visit Follow-up Visit (Physician/NAIL PULLER (Physician/NAIL PULLER (Physician/NAIL PULLER ) ) ) Arrival Mode Ambulatory, Ambulatory, Crutches Crutches Crutches Transfer Assistance None Accompanied by self Patient Identification Verified (Name & Yes Yes Yes ) Patient Requires Transmission-Based No Precautions Safety Precautions Fall Prevention Finger Stick Blood Sugar(mg/dl) (if 113 indicated): Blood Sugar Stated by Patient Height and Weight Body Mass Index (BMI) 35.2 35.2 35.2 BMI Classification Obese Obese Obese Vital Signs Temperature (97.8 F-99.1 F) 98 F 97.1 F L 98 F Temperature Source Temporal Temporal Temporal Pulse Rate (60-100) 106 H 96 Pulse Location Monitor Monitor Monitor Respiratory Rate (12-18) 18 18 15 Respiratory rate source Observation Observation Observation Oxygen Delivery Method Room Air Room Air Blood Pressure (90/60-120/80) 152/82 H 152/75 H Blood Pressure Mean (mm Hg) 105 100 Source Monitor Monitor Monitor Position Sitting Semi-Fowlers Blood Pressure Location Left Arm Left Arm History Since Last Visit- (Skip if this is Patient's initial visit) Have you changed medications since your No No last visit? Any new allergies or adverse reactions No No Had a fall/change in ADL's that may No No increase risk of falls Signs or symptoms of abuse and/or No No neglect since last visit Have you been in the hospital since your No Yes last visit? Has dressing in place as prescribed Yes Yes Has compression in place as prescribed N/A N/A N/A Has offloadiing in place as prescribed N/A Yes Yes Experienced any changes in pain level or No management Left Footwear Regular Shoe Regular Shoe Removable Cast Walker/Walking Boot Right Footwear Wedge Shoe Removable Cast Regular Shoe Walker/Walking Boot Pain Scale: 0-10 Numeric Is Patient Pain Free? Yes Yes Yes 09/01/23 10:17 WC - Today's Visit Information Type of service Follow-up Visit (Physician/NAIL PULLER ) Arrival Mode Ambulatory, Crutches Transfer Assistance None Accompanied by Patient Identification Verified (Name & Yes ) Patient Requires Transmission-Based No Precautions Safety Precautions Finger Stick Blood Sugar(mg/dl) (if 185 indicated): Blood Sugar Stated by Patient Height and Weight Body Mass Index (BMI) 35.2 BMI Classification Obese Vital Signs Temperature (97.8 F-99.1 F) 98.7 F Temperature Source Temporal Pulse Rate (60-100) 89 Pulse Location Monitor Respiratory Rate (12-18) 20 H Respiratory rate source Observation Oxygen Delivery Method Blood Pressure (90/60-120/80) 136/72 H Blood Pressure Mean (mm Hg) 93 Source Monitor Position Blood Pressure Location History Since Last Visit- (Skip if this is Patient's initial visit) Have you changed medications since your No last visit? Any new allergies or adverse reactions No Had a fall/change in ADL's that may No increase risk of falls Signs or symptoms of abuse and/or No neglect since last visit Have you been in the hospital since your No last visit? Has dressing in place as prescribed Yes Has compression in place as prescribed N/A Has offloadiing in place as prescribed Yes Experienced any changes in pain level or No management Left Footwear Right Footwear Pain Scale: 0-10 Numeric Is Patient Pain Free? Yes WC - Nurse 1 - General Ulcer Measurement Start: 08/11/23 10:33 Freq: Status: Active Protocol: Activity Type Activity Date Activity User E-sign Co-sign Detail Recorded Client Recorded Date Recorded By Document 08/11/23 10:34 MT Desktop 08/11/23 10:40 MT Document 08/18/23 10:16 KW Desktop 08/18/23 10:21 KW Document 08/25/23 10:13 ML Desktop 08/25/23 10:23 ML Document 09/01/23 10:17 DL Desktop 09/01/23 10:24 DL 08/11/23 08/18/23 08/25/23 10:34 10:16 10:13 Wound Center Nurse 1 #15 RT LAT FT -Current Size (cm) - Length 1.2 1.1 1 -Current Size (cm) - Width 0.6 0.3 0.2 -Current Size (cm) - Depth 0.1 0.1 0.2 -Total Square Cm 0.72 0.33 0.2 -Date of Last Picture (Recall this 08/18/23 field) -Photo Taken Yes -Epithelialization Large 67-100% -Circular Undermining No -Exudate Amt Small Small Small -Exudate Type Serous Serosanguineous -Wound Margin Flat & Intact Distinct, Distinct, Outline Outline Attached Attached -Granulation Amt Large (67-100%) Large (67-100%) Medium (34-66%) -Granulation Quality Pale,[place] Red -Slough/Fibrin Yes -Necrosis Amt None Present (0 Small (1-33%) Medium (34-66%) %) -Necrotic Tissue Type Adherent Slough Adherent Slough -Structure Exposed -Texture (Susana-wound Skin Appearance) Assessed Assessed,Callus No Abnormality -Moisture (Susana-wound Skin Appearance) Assessed Assessed -Color (Susana-wound Skin Appearance) Assessed Assessed No Abnormality -Temperature (Susana-wound Skin No Abnormality No Abnormality No Abnormality Appearance) (Pt Warm) (Pt Warm) (Pt Warm) -Tenderness on Palpation (Susana-wound No No Skin Appearance) -Ulcer Cleansing Rinsed/ Rinsed/ Rinsed/ Irrigated with Irrigated with Irrigated with Saline Saline Saline -Foul Odor after Cleansing No No No -Anesthetic Used 5% Lidocaine 5% Lidocaine 5% Lidocaine Gel Gel Gel Lower Limb Edema Present NA 09/01/23 10:17 Wound Center Nurse 1 #15 RT LAT FT -Current Size (cm) - Length 0.7 -Current Size (cm) - Width 0.2 -Current Size (cm) - Depth 0.1 -Total Square Cm 0.14 -Date of Last Picture (Recall this field) -Photo Taken -Epithelialization -Circular Undermining -Exudate Amt None Present -Exudate Type -Wound Margin Distinct, Outline Attached -Granulation Amt Large (67-100%) -Granulation Quality [place] -Slough/Fibrin -Necrosis Amt None Present (0 %) -Necrotic Tissue Type -Structure Exposed N/A -Texture (Susana-wound Skin Appearance) Callus,Scarring -Moisture (Susana-wound Skin Appearance) Dry/Scaly -Color (Susana-wound Skin Appearance) No Abnormality -Temperature (Susana-wound Skin No Abnormality Appearance) (Pt Warm) -Tenderness on Palpation (Susana-wound No Skin Appearance) -Ulcer Cleansing Rinsed/ Irrigated with Saline -Foul Odor after Cleansing -Anesthetic Used 5% Lidocaine Gel,Cetacaine Lower Limb Edema Present WC - Nurse 2 - General Ulcer CM Notes Start: 08/11/23 10:33 Freq: Status: Active Protocol: Activity Type Activity Date Activity User E-sign Co-sign Detail Recorded Client Recorded Date Recorded By Document 08/11/23 11:48 [employer] 08/11/23 11:50 [employer] Document 08/18/23 10:48 [employer] 08/18/23 10:51 [employer] Document 08/25/23 10:54 [employer] 08/25/23 10:58 [employer] Document 09/01/23 10:45 [employer] 09/01/23 10:49 [employer] 08/11/23 08/18/23 08/25/23 11:48 10:48 10:54 Wound Center Nurse 2 #15 RT LAT FT -Time 11:48 10:48 10:55 -Correct Patient Yes Yes Yes -Correct Side, Site, Position Yes Yes Yes -Correct Procedure Yes Yes Yes -Procedure Performed Yes Yes Yes -Type of Procedure Debridement Debridement Debridement -Clinical Debridement Subcutaneous Subcutaneous Subcutaneous -Tissue Removed Subcutaneous Subcutaneous Subcutaneous -Post Debridement (cm) - Length 1.3 1 0.9 -Post Debridement (cm) - Width 0.5 0.4 0.2 -Post Debridement (cm) - Depth 0.1 0.1 0.1 -Total Square (Post) (cm) 0.65 0.4 0.18 -Area of Debridement (cm) - Length 1.3 1 0.9 -Area of Debridement (cm) - Width 0.5 0.4 0.2 -Total Square (Area) (cm) 0.65 0.4 0.18 -Tunneling No No No -Undermining/Tunneling No No No -Circular Undermining No No No -Wound/Ulcer Outcome Not Healed Not Healed Not Healed -Ulcer Cleansing Rinsed/ Rinsed/ Rinsed/ Irrigated with Irrigated with Irrigated with Saline Saline Saline -Foul Odor after Cleansing No No No -Bioengineered Tissue No No No -Bleeding Controlled with Pressure Pressure Pressure -Treatment Response Procedure Procedure Procedure Tolerated Well Tolerated Well Tolerated Well -Offloading No No -Type of Offloading -Debridement - Subq, 1st 20sq cm Yes Yes Yes Pain Scale: 0-10 Numeric Is Patient Pain Free? Yes Yes Yes 09/01/23 10:45 Wound Center Nurse 2 #15 RT LAT FT -Time 10:46 -Correct Patient Yes -Correct Side, Site, Position Yes -Correct Procedure Yes -Procedure Performed Yes -Type of Procedure Debridement -Clinical Debridement Subcutaneous -Tissue Removed Subcutaneous -Post Debridement (cm) - Length 0.9 -Post Debridement (cm) - Width 0.2 -Post Debridement (cm) - Depth 0.1 -Total Square (Post) (cm) 0.18 -Area of Debridement (cm) - Length 0.9 -Area of Debridement (cm) - Width 0.2 -Total Square (Area) (cm) 0.18 -Tunneling No -Undermining/Tunneling No -Circular Undermining No -Wound/Ulcer Outcome Not Healed -Ulcer Cleansing Rinsed/ Irrigated with Saline -Foul Odor after Cleansing No -Bioengineered Tissue No -Bleeding Controlled with Pressure -Treatment Response Procedure Tolerated Well -Offloading Yes -Type of Offloading Camwalker -Debridement - Subq, 1st 20sq cm Yes Pain Scale: 0-10 Numeric Is Patient Pain Free? Yes - Nurse 3 - General Ulcer D/C NN Start: 08/11/23 10:33 Freq: Status: Active Protocol: Activity Type Activity Date Activity User E-sign Co-sign Detail Recorded Client Recorded Date Recorded By Document 08/11/23 12:02 DL Desktop 08/11/23 12:03 DL Document 08/18/23 11:00 [facility] Desktop 08/18/23 11:00 [employer] Document 08/25/23 11:07 DL Desktop 08/25/23 11:08 DL 08/11/23 08/18/23 08/25/23 12:02 11:00 11:07 Wound Care Center Nurse 3 #15 RT LAT FT -Ulcer Cleansing Rinsed/ Rinsed/ Rinsed/ Irrigated with Irrigated with Irrigated with Saline Saline Saline -Foul Odor after Cleansing No No No -Other Dressing dakins/ABD dakins moist dakins gauze -Primary Dressing Covered/Secured with Dry Gauze & Secured with Dry Gauze & Roll Gauze, Tape Roll Gauze, Secured with Secured with Tape Tape -Other Covering drsg per cp rn ABD Treatment Response Procedure Procedure Procedure Tolerated Well Tolerated Well Tolerated Well Pain Scale: 0-10 Numeric Is Patient Pain Free? Yes Yes Yes WC - Visit Discharge Discharge Condition Stable Stable Stable Ambulatory Status Ambulatory, Ambulatory, Ambulatory Walker Crutches Transportation Private Auto Private Auto Private Auto Facility Type Home Health Orders Sent Yes Assessment/Plan Assessment/Plan (1) Ulcer of right foot with fat layer exposed: CODE(S): L97.512 - Non-pressure chronic ulcer of other part of right foot with fat layer exposed (2) Type 2 diabetes mellitus with diabetic polyneuropathy: CODE(S): E11.42 - Type 2 diabetes mellitus with diabetic polyneuropathy (3) Type 2 diabetes mellitus with foot ulcer: CODE(S): E11.621 - Type 2 diabetes mellitus with foot ulcer; L97.509 - Non-pressure chronic ulcer of other part of unspecified foot with unspecified severity (4) Venous insufficiency: CODE(S): I87.2 - Venous insufficiency (chronic) (peripheral) (5) Leg edema: CODE(S): R60.0 - Localized edema (6) Other specified peripheral vascular diseases: CODE(S): I73.89 - Other specified peripheral vascular diseases PLAN: Plan Patient seen and evaluated Ulceration to the plantar aspect of the right foot underwent debridement as noted in clinical panel above. Ulceration measures 0.9 cm x 0.2 cm x 0.1 cm. No signs of infection. Dakin's wet-to-dry applied to the wound base and dressed with dry sterile dressing. He was placed back into his CAM boot with plantar offloading padding and instructed to remain nonweightbearing to the right foot with the assistance of crutches. He is to change dressing daily. Wound demonstrates continued improvement with reduction in size vs previous visit. Continues to demonstrate good progress and is nearly healed. He has been approved for EpiFix as of 08/03/23. Patient states that he would have to pay a portion of this deductible towards the graft and he is unsure now if he would wish to proceed forward with applications. Labs ordered including HgbA1c, patient has not obtained. This was discussed to get this done. Previous A1c on record from 12/04/2021 was 6.2%. Radiographs obtained 06/14/2023 negative for osteomyelitis. Venous studies performed 06/14/2023 and are negative for DVT. He does have segmental valvular incompetence noted within the great saphenous veins bilaterally. Accessory saphenous vein in the right mid thigh is incompetent. Accessory saphenous vein in the left mid calf is incompetent. LEAS performed 06/14/2023: LLE?DP artery biphasic, PT artery monophasic; PT and DP PT artery noncompressible. PT artery indices 0.49, left DP indices 0.82, left digital brachial indices 0.74. RLE?right PT artery triphasic. PT and DP noncompressible. Right digital brachial indices 0.47. Interpretation: PVRs diminished at the ankle and digital levels on the left with right undetermined due to noncompressibility of the vasculature at the ankle level on the right. There is evidence of moderate arterial occlusive disease in the lower extremities bilateral. He has been referred to Dr. Harrington and has appointment with him next week. Discussed the importance of continued offloading in CAM boot with plantar offloading padding and to remain nonweightbearing to the right lower extremity with the assistance of crutches to aid in wound healing. Discussed that his foot type with prominent fifth metatarsal base secondary to his foot deformity will continue to create problems with wounds and healing and that he should always remain in diabetic shoe gear with protective offloading inserts. Discussed proper diabetic diet to aid in continued wound healing. Stressed importance of maintaining tight glycemic control to aid in wound healing. Discussed importance of daily foot checks and to never walk barefoot. Discussed socks include barefoot. Discussed adequate protein intake for continued wound healing. Toni supplementation also recommended. Discussed signs and symptoms of infection. Discussed if he notices redness about the wound that spreads on top of the foot or up the leg, if he has any purulent drainage from the wound site, has increasing foul odor to the wound, or if he experiences fever greater than 101 accompanied by nausea, vomiting, fever, chills these are signs of a progressing infection and he should report to the ED for IV antibiotics. He voices understanding of this. The following work up and care recommendations were made: Dressing: Dakin's wet-to-dry dressing and dry sterile dressing, change daily. Wash: Soap and water Tissue growth optimization: Dakin's Offload: CAM boot to the right foot with plantar offloading padding. He is to remain nonweightbearing with the assistance of crutches to the right foot Vascular: History of vascular disease. DP and PT pulses were palpable with adequate capillary fill time. Do not feel vascular status is impacting healing at this time. Edema: Recommended Tubigrip compression and following wound healing compression stockings 20 to 30 mmHg. Infection: No signs of infection. Patient currently finishing oral antibiotic course Pain: No pain secondary to diabetic peripheral polyneuropathy. May take [id number] Tylenol Extra Strength as needed for discomfort Host factors: DM type II with peripheral polyneuropathy, cavus foot, excessive pressure, obesity I answered all the patient's questions. To return to the wound healing center in 1 week or call sooner if the patient has any questions or concerns."
== END 2023-09-06 23:59 | disposition home or self-care (01) ==
LOC: WC 10:15
PROVIDERS: PCP Student in an Organized Health Care Education/Training Program; Referring Provider Podiatrist Foot & Ankle Surgery; Visit Provider Student in an Organized Health Care Education/Training Program
DX: E11.621 Type 2 diabetes mellitus with foot ulcer (principal); L97.422 Non-pressure chronic ulcer of left heel and midfoot with fat layer exposed; E11.42 Type 2 diabetes mellitus with diabetic polyneuropathy; Z79.4 Long term (current) use of insulin; E11.51 Type 2 diabetes mellitus with diabetic peripheral angiopathy without gangrene; Q66.11 Congenital talipes calcaneovarus, right foot; I10 Essential (primary) hypertension; I87.2 Venous insufficiency (chronic) (peripheral); R60.0 Localized edema; E66.9 Obesity, unspecified; Z68.35 Body mass index [BMI] 35.0-35.9, adult; Z79.82 Long term (current) use of aspirin; Z79.899 Other long term (current) drug therapy
CPT/HCPCS: 11042

== ENCOUNTER 2023-09-29 09:45 | Outpatient (RCR) | payer OTHER, SELFPAY ==
[2023-09-07 00:48] VITALS: BP 136/72; PULSE 89; RESP 20; TEMP 37.1; BMI 35.2
[2023-09-08 10:13] VITALS: BP 140/72; PULSE 95; RESP 18; TEMP 36.5; BMI 35.2
--- NOTE | 2023-09-08 12:18 | PCM.WC.PN ---
History of Present Illness Date of Service: 09/08/23 Chief Complaint: left foot ulcers History of Wound: This 57-year-old male presents to the wound care center as referral by his manager quality systems Dr. Enciso for plantar right foot ulceration. He has PMHx of bilateral foot wounds, partial fifth ray resection right foot, DM type II with peripheral polyneuropathy, cavovarus deformity right foot, chronic venous insufficiency, lower extremity edema, HTN, obesity. He states he did receive new shoes for Rohith and 2 days later on May 04, 2023 states that he had new wound development to the plantar aspect of the fifth metatarsal base of the right foot. He states he feels that shoes were too tight. He does have peripheral polyneuropathy and did not notice they were too tight until wound developed. He did go to urgent care and received 7-day course of doxycycline. He did finish antibiotic course to completion and followed up with his manager quality systems in office and underwent debridement with Betadine to the wound margin and Aquacel to the wound base. He was dressed and dry sterile dressing and offloading in CAM boot and has remained nonweightbearing with the assistance of crutches. At this time he was urged to go to hospital for further treatment given history of infection and amputation however he did refuse at this time and requested evaluation at the wound care center. He was thus started on Augmentin and Cipro and is currently finishing oral antibiotic course. He states he is continue to remain nonweightbearing and changing dressings daily. He currently denies N/V/F/chills. Denies further complaints. Subjective Subjective Patient is a 58-year-old male who follows to the wound care center today for continued care of plantar subfifth metatarsal ulceration of the right foot. He continues to offloading CAM boot and has attempted to remain nonweightbearing with crutches. He has continued to change dressings daily with Dakins. States ulcer is continues to improve and nearly healed. States he can see it getting smaller each week. Denies constitutional symptoms. Denies further complaints. Objective Data Objective Data Vital Signs: Vital Signs Temp Pulse Resp BP O2 Del Method 97.7 F L 95 18 140/72 H Room Air 09/08/23 10:13 09/08/23 10:13 09/08/23 10:13 09/08/23 10:13 09/08/23 10:13 Oxygen Delivery Method Room Air Weight: 124.284 kg Body Mass Index (BMI) 35.2 Physical Exam Const alert, oriented x3 and no apparent distress General Appearance: cooperative HEENT normocephalic Eyes General Eye: normal appearance of both eyes Neck General: normal visual inspection Lymph Lymphatic: no lymphadenopathy noted and no lymphedema noted Resp normal respiratory effort Cardio regular rate and regular rhythm Extremity normal capillary refill, no calf tenderness and no pedal edema Extremity Narrative: Vascular: DP and PT pulses palpable. CFT less than 4 seconds to the digits. There is mild nonpitting edema about foot and ankle. Dermatological: There is a ulceration noted to the plantar aspect of the right foot subfifth metatarsal base/styloid process secondary to cavovarus deformity of the foot and continued pressure. Ulceration demonstrates granular base with scant serosanguineous drainage and healthy appearing tissue at the wound margins. No purulent drainage, no erythema, no malodor, no lymphangitic streaking, no palpable fluctuance/bogginess noted, no visible abscess formation. Musculoskeletal: Muscle strength 5 of 5 age-appropriate. Prominent styloid process fifth metatarsal base with cavovarus foot deformity. Partial fifth Ray resection right foot. There is decreased range of motion of the ankle joint dorsiflexion decreased range of motion of the first metatarsophalangeal joint without pain or crepitus. Skin no rashes or lesions noted, skin turgor normal and no jaundice Neuro moves all extremities Debridement Note Debridement Note Wound debrided: Subfifth metatarsal base right foot Laterality: Right Wound Grade/Stage: Francois stage I Type of Debridement: Excisional debridement Anesthesia Used: 5% Lidocaine Gel Depth: Down to and including healthy tissue and in the subcutaneous layer Percentage of wound debrided: 100 Instrument Used: - (1 mm curette) Tissue Removed: Fibrous, devitalized subcutaneous, biofilm, slough Severity: Fat Layer Exposed Amount of bleeding with debridement: Mild Bleeding Controlled with: Compression and gauze Patient tolerated procedure: Patient tolerated procedure well Post-Debridement Measurements and Additional Note: Post-Debridement Measurements/Treatment LC - Nurse 1 - General Ulcer Assessment Start: 09/08/23 10:12 Freq: Status: Active Protocol: LIZZETTE Activity Type Activity Date Activity User E-sign Co-sign Detail Recorded Client Recorded Date Recorded By Document 09/08/23 10:13 KW Desktop 09/08/23 10:18 KW 09/08/23 10:13 WC - Today's Visit Information Type of service Follow-up Visit (Physician/[employer] TECHNICIAN ) Arrival Mode Ambulatory, Crutches Patient Identification Verified (Name & Yes ) Finger Stick Blood Sugar(mg/dl) (if 142 indicated): Blood Sugar Stated by Patient Height and Weight Body Mass Index (BMI) 35.2 BMI Classification Obese Vital Signs Temperature (97.8 F-99.1 F) 97.7 F L Temperature Source Temporal Pulse Rate (60-100) 95 Pulse Location Monitor Respiratory Rate (12-18) 18 Respiratory rate source Observation Oxygen Delivery Method Room Air Blood Pressure (90/60-120/80) 140/72 H Blood Pressure Mean (mm Hg) 94 Source Monitor Position Semi-Fowlers Blood Pressure Location Left Arm History Since Last Visit- (Skip if this is Patient's initial visit) Have you changed medications since your No last visit? Any new allergies or adverse reactions No Had a fall/change in ADL's that may No increase risk of falls Signs or symptoms of abuse and/or No neglect since last visit Have you been in the hospital since your No last visit? Has dressing in place as prescribed Yes Has compression in place as prescribed No Has offloadiing in place as prescribed Yes Experienced any changes in pain level or No management Left Footwear Regular Shoe Right Footwear Removable Cast Walker/Walking Boot Pain Scale: 0-10 Numeric Is Patient Pain Free? Yes - Nurse 1 - General Ulcer Measurement Start: 09/08/23 10:12 Freq: Status: Active Protocol: Activity Type Activity Date Activity User E-sign Co-sign Detail Recorded Client Recorded Date Recorded By Document 09/08/23 10:13 KW Desktop 09/08/23 10:18 KW 09/08/23 10:13 Wound Center Nurse 1 #15 RT LAT FT -Current Size (cm) - Length 0.7 -Current Size (cm) - Width 0.1 -Current Size (cm) - Depth 0.2 -Total Square Cm 0.07 -Exudate Amt Small -Exudate Type Serosanguineous -Wound Margin Distinct, Outline Attached -Granulation Amt Large (67-100%) -Granulation Quality [place] -Texture (Susana-wound Skin Appearance) Assessed,Callus -Moisture (Susana-wound Skin Appearance) Assessed -Color (Susana-wound Skin Appearance) Assessed -Temperature (Susana-wound Skin No Abnormality Appearance) (Pt Warm) -Ulcer Cleansing Rinsed/ Irrigated with Saline -Foul Odor after Cleansing No -Anesthetic Used 5% Lidocaine Gel LC - Nurse 2 - General Ulcer CM Notes Start: 09/08/23 10:12 Freq: Status: Active Protocol: Activity Type Activity Date Activity User E-sign Co-sign Detail Recorded Client Recorded Date Recorded By Document 09/08/23 10:40 [facility] Desktop 09/08/23 10:42 [facility] 09/08/23 10:40 Wound Center Nurse 2 -Time 10:40 -Correct Patient Yes -Correct Side, Site, Position Yes -Correct Procedure Yes -Procedure Performed Yes -Type of Procedure Debridement -Clinical Debridement Subcutaneous -Tissue Removed Subcutaneous -Post Debridement (cm) - Length 0.5 -Post Debridement (cm) - Width 0.2 -Post Debridement (cm) - Depth 0.1 -Total Square (Post) (cm) 0.10 -Area of Debridement (cm) - Length 0.5 -Area of Debridement (cm) - Width 0.2 -Total Square (Area) (cm) 0.10 -Tunneling No -Undermining/Tunneling No -Circular Undermining No -Wound/Ulcer Outcome Not Healed -Ulcer Cleansing Rinsed/ Irrigated with Saline -Foul Odor after Cleansing No -Bioengineered Tissue No -Bleeding Controlled with Pressure -Treatment Response Procedure Tolerated Well -Offloading Yes -Type of Offloading Camwalker -Debridement - Subq, 1st 20sq cm Yes Pain Scale: 0-10 Numeric Is Patient Pain Free? Yes LC - Nurse 3 - General Ulcer D/C NN Start: 09/08/23 10:12 Freq: Status: Active Protocol: Activity Type Activity Date Activity User E-sign Co-sign Detail Recorded Client Recorded Date Recorded By Document 09/08/23 10:57 [facility] [id number] 09/08/23 10:57 [facility] 09/08/23 10:57 Wound Care Center Nurse 3 #15 RT LAT FT -Ulcer Cleansing Rinsed/ Irrigated with Saline -Foul Odor after Cleansing No -Other Dressing dakins moist gauze -Primary Dressing Covered/Secured with Secured with Tape -Other Covering abd Treatment Response Procedure Tolerated Well Pain Scale: 0-10 Numeric Is Patient Pain Free? Yes WC - Visit Discharge Discharge Condition Stable Ambulatory Status Ambulatory, Crutches Transportation Private Auto Assessment/Plan Assessment/Plan (1) Ulcer of right foot with fat layer exposed: CODE(S): L97.512 - Non-pressure chronic ulcer of other part of right foot with fat layer exposed (2) Type 2 diabetes mellitus with diabetic polyneuropathy: CODE(S): E11.42 - Type 2 diabetes mellitus with diabetic polyneuropathy (3) Type 2 diabetes mellitus with foot ulcer: CODE(S): E11.621 - Type 2 diabetes mellitus with foot ulcer; L97.509 - Non-pressure chronic ulcer of other part of unspecified foot with unspecified severity (4) Venous insufficiency: CODE(S): I87.2 - Venous insufficiency (chronic) (peripheral) (5) Leg edema: CODE(S): R60.0 - Localized edema (6) Other specified peripheral vascular diseases: CODE(S): I73.89 - Other specified peripheral vascular diseases PLAN: Plan Patient seen and evaluated Ulceration to the plantar aspect of the right foot underwent debridement as noted in clinical panel above. Ulceration measures 0.5 cm x 0.2 cm x 0.1 cm. No signs of infection. Dakin's wet-to-dry applied to the wound base and dressed with dry sterile dressing. He was placed back into his CAM boot with plantar offloading padding and instructed to remain nonweightbearing to the right foot with the assistance of crutches. He is to change dressing daily. Wound demonstrates continued improvement with reduction in size vs previous visit. Continues to demonstrate good progress and is progressing towards healed status. He has been approved for EpiFix as of 08/03/23. Patient states that he would have to pay a portion of this deductible towards the graft and he is unsure now if he would wish to proceed forward with applications. Discussed with him if he would allow graft applications he would have already healed. He still worried about his share of cost. Labs ordered including HgbA1c, patient has not obtained. This was discussed to get this done. Previous A1c on record from 12/04/2021 was 6.2%. Radiographs obtained 06/14/2023 negative for osteomyelitis. Venous studies performed 06/14/2023 and are negative for DVT. He does have segmental valvular incompetence noted within the great saphenous veins bilaterally. Accessory saphenous vein in the right mid thigh is incompetent. Accessory saphenous vein in the left mid calf is incompetent. LEAS performed 06/14/2023: LLE?DP artery biphasic, PT artery monophasic; PT and DP PT artery noncompressible. PT artery indices 0.49, left DP indices 0.82, left digital brachial indices 0.74. RLE?right PT artery triphasic. PT and DP noncompressible. Right digital brachial indices 0.47. Interpretation: PVRs diminished at the ankle and digital levels on the left with right undetermined due to noncompressibility of the vasculature at the ankle level on the right. There is evidence of moderate arterial occlusive disease in the lower extremities bilateral. He has been referred to Dr. Harrington and has appointment with him next week. Discussed the importance of continued offloading in CAM boot with plantar offloading padding and to remain nonweightbearing to the right lower extremity with the assistance of crutches to aid in wound healing. Discussed that his foot type with prominent fifth metatarsal base secondary to his foot deformity will continue to create problems with wounds and healing and that he should always remain in diabetic shoe gear with protective offloading inserts. Discussed proper diabetic diet to aid in continued wound healing. Stressed importance of maintaining tight glycemic control to aid in wound healing. Discussed importance of daily foot checks and to never walk barefoot. Discussed socks include barefoot. Discussed adequate protein intake for continued wound healing. Toni supplementation also recommended. Discussed signs and symptoms of infection. Discussed if he notices redness about the wound that spreads on top of the foot or up the leg, if he has any purulent drainage from the wound site, has increasing foul odor to the wound, or if he experiences fever greater than 101 accompanied by nausea, vomiting, fever, chills these are signs of a progressing infection and he should report to the ED for IV antibiotics. He voices understanding of this. The following work up and care recommendations were made: Dressing: Claire's wet-to-dry dressing and dry sterile dressing, change daily. Wash: Soap and water Tissue growth optimization: Dakjavier's Offload: CAM boot to the right foot with plantar offloading padding. He is to remain nonweightbearing with the assistance of crutches to the right foot Vascular: History of vascular disease. DP and PT pulses were palpable with adequate capillary fill time. Do not feel vascular status is impacting healing at this time. Edema: Recommended Tubigrip compression and following wound healing compression stockings 20 to 30 mmHg. Infection: No signs of infection. Patient currently finishing oral antibiotic course Pain: No pain secondary to diabetic peripheral polyneuropathy. May take [id number] Tylenol Extra Strength as needed for discomfort Host factors: DM type II with peripheral polyneuropathy, cavus foot, excessive pressure, obesity I answered all the patient's questions. To return to the wound healing center in 1 week or call sooner if the patient has any questions or concerns.
[2023-09-15 10:12] VITALS: BP 162/78; PULSE 102; RESP 20; TEMP 36.3; BMI 35.2
--- NOTE | 2023-09-15 11:54 | PCM.WC.PN ---
History of Present Illness Date of Service: 09/15/23 Chief Complaint: left foot ulcers History of Wound: This 57-year-old male presents to the wound care center as referral by his slotter operator helper Dr. Enciso for plantar right foot ulceration. He has PMHx of bilateral foot wounds, partial fifth ray resection right foot, DM type II with peripheral polyneuropathy, cavovarus deformity right foot, chronic venous insufficiency, lower extremity edema, HTN, obesity. He states he did receive new shoes for [place] and 2 days later on May 04, 2023 states that he had new wound development to the plantar aspect of the fifth metatarsal base of the right foot. He states he feels that shoes were too tight. He does have peripheral polyneuropathy and did not notice they were too tight until wound developed. He did go to urgent care and received 7-day course of doxycycline. He did finish antibiotic course to completion and followed up with his slotter operator helper in office and underwent debridement with Betadine to the wound margin and Aquacel to the wound base. He was dressed and dry sterile dressing and offloading in CAM boot and has remained nonweightbearing with the assistance of crutches. At this time he was urged to go to hospital for further treatment given history of infection and amputation however he did refuse at this time and requested evaluation at the wound care center. He was thus started on Augmentin and Cipro and is currently finishing oral antibiotic course. He states he is continue to remain nonweightbearing and changing dressings daily. He currently denies N/V/F/chills. Denies further complaints. Subjective Subjective Patient is a 58-year-old male who follows to the wound care center today for continued care of plantar subfifth metatarsal ulceration of the right foot. He continues to offloading CAM boot and has attempted to remain nonweightbearing with crutches. He has continued to change dressings daily with Dakins. States ulcer is nearing closure but has not progressed much since last week. Denies constitutional symptoms. Denies further complaints. Objective Data Objective Data Vital Signs: Vital Signs Temp Pulse Resp BP O2 Del Method 97.3 F L 102 H 20 H 162/78 H Room Air 09/15/23 10:12 09/15/23 10:12 09/15/23 10:12 09/15/23 10:12 09/08/23 10:13 Oxygen Delivery Method Room Air Weight: 124.284 kg Body Mass Index (BMI) 35.2 Physical Exam Const alert, oriented x3 and no apparent distress General Appearance: cooperative HEENT normocephalic Eyes General Eye: normal appearance of both eyes Neck General: normal visual inspection Lymph Lymphatic: no lymphadenopathy noted and no lymphedema noted Resp normal respiratory effort Cardio regular rate and regular rhythm Extremity normal capillary refill, no calf tenderness and no pedal edema Extremity Narrative: Vascular: DP and PT pulses palpable. CFT less than 4 seconds to the digits. There is mild nonpitting edema about foot and ankle. Dermatological: There is a ulceration noted to the plantar aspect of the right foot subfifth metatarsal base/styloid process secondary to cavovarus deformity of the foot and continued pressure. Ulceration demonstrates granular base with scant serosanguineous drainage and healthy appearing tissue at the wound margins. No purulent drainage, no erythema, no malodor, no lymphangitic streaking, no palpable fluctuance/bogginess noted, no visible abscess formation. Musculoskeletal: Muscle strength 5 of 5 age-appropriate. Prominent styloid process fifth metatarsal base with cavovarus foot deformity. Partial fifth Ray resection right foot. There is decreased range of motion of the ankle joint dorsiflexion decreased range of motion of the first metatarsophalangeal joint without pain or crepitus. Skin no rashes or lesions noted, skin turgor normal and no jaundice Neuro moves all extremities Debridement Note Debridement Note Wound debrided: Subfifth metatarsal right foot Laterality: Right Wound Grade/Stage: Francois stage I Type of Debridement: Excisional debridement Anesthesia Used: 5% Lidocaine Gel Depth: Down to and including healthy tissue and in the subcutaneous layer Percentage of wound debrided: 100 Instrument Used: #15 blade Tissue Removed: Fibrous, devitalized subcutaneous, biofilm, slough Severity: Fat Layer Exposed Amount of bleeding with debridement: Mild Bleeding Controlled with: Compression and gauze Patient tolerated procedure: Patient tolerated procedure well Post-Debridement Measurements and Additional Note: Post-Debridement Measurements/Treatment - Nurse 1 - General Ulcer Assessment Start: 09/08/23 10:12 Freq: Status: Active Protocol: LC.LOWEXJacob Activity Type Activity Date Activity User E-sign Co-sign Detail Recorded Client Recorded Date Recorded By Document 09/08/23 10:13 KW Desktop 09/08/23 10:18 KW Document 09/15/23 10:12 DL Desktop 09/15/23 10:18 DL 09/08/23 09/15/23 10:13 10:12 WC - Today's Visit Information Type of service Follow-up Visit Follow-up Visit (Physician/GAS FURNACE INSTALLER (Physician/GAS FURNACE INSTALLER ) ) Arrival Mode Ambulatory, Ambulatory, Crutches Crutches Transfer Assistance None Patient Identification Verified (Name & Yes Yes ) Patient Requires Transmission-Based No Precautions Finger Stick Blood Sugar(mg/dl) (if 142 124 indicated): Blood Sugar Stated by Stated by Patient Patient Height and Weight Body Mass Index (BMI) 35.2 35.2 BMI Classification Obese Obese Vital Signs Temperature (97.8 F-99.1 F) 97.7 F L 97.3 F L Temperature Source Temporal Temporal Pulse Rate (60-100) 95 102 H Pulse Location Monitor Monitor Respiratory Rate (12-18) 18 20 H Respiratory rate source Observation Observation Oxygen Delivery Method Room Air Blood Pressure (90/60-120/80) 140/72 H 162/78 H Blood Pressure Mean (mm Hg) 94 106 Source Monitor Monitor Position Semi-Fowlers Blood Pressure Location Left Arm History Since Last Visit- (Skip if this is Patient's initial visit) Have you changed medications since your No No last visit? Any new allergies or adverse reactions No No Had a fall/change in ADL's that may No No increase risk of falls Signs or symptoms of abuse and/or No No neglect since last visit Have you been in the hospital since your No No last visit? Has dressing in place as prescribed Yes Yes Has compression in place as prescribed No Yes Has offloadiing in place as prescribed Yes Yes Experienced any changes in pain level or No No management Left Footwear Regular Shoe Right Footwear Removable Cast Walker/Walking Boot Pain Scale: 0-10 Numeric Is Patient Pain Free? Yes Yes - Nurse 1 - General Ulcer Measurement Start: 09/08/23 10:12 Freq: Status: Active Protocol: Activity Type Activity Date Activity User E-sign Co-sign Detail Recorded Client Recorded Date Recorded By Document 09/08/23 10:13 KW Desktop 09/08/23 10:18 KW Document 09/15/23 10:12 DL Desktop 09/15/23 10:18 DL 09/08/23 09/15/23 10:13 10:12 Wound Center Nurse 1 #15 RT LAT FT -Current Size (cm) - Length 0.7 0.6 -Current Size (cm) - Width 0.1 0.2 -Current Size (cm) - Depth 0.2 0.2 -Total Square Cm 0.07 0.12 -Maximum Distance #2 (cm) 0.2 -Circular Undermining Yes -Exudate Amt Small Small -Exudate Type Serosanguineous Serosanguineous -Wound Margin Distinct, Thickened Outline Attached -Granulation Amt Large (67-100%) Small (1-33%) -Granulation Quality Marshallberg Marshallberg -Necrosis Amt None Present (0 %) -Structure Exposed N/A -Texture (Susana-wound Skin Appearance) Assessed,Callus Callus -Moisture (Susana-wound Skin Appearance) Assessed No Abnormality -Color (Susana-wound Skin Appearance) Assessed No Abnormality -Temperature (Susana-wound Skin No Abnormality No Abnormality Appearance) (Pt Warm) (Pt Warm) -Tenderness on Palpation (Susana-wound No Skin Appearance) -Ulcer Cleansing Rinsed/ Soap and Water Irrigated with Saline -Foul Odor after Cleansing No No -Anesthetic Used 5% Lidocaine 5% Lidocaine Gel Gel WC - Nurse 2 - General Ulcer CM Notes Start: 09/08/23 10:12 Freq: Status: Active Protocol: Activity Type Activity Date Activity User E-sign Co-sign Detail Recorded Client Recorded Date Recorded By Document 09/08/23 10:40 [facility] Desktop 09/08/23 10:42 [facility] Document 09/15/23 10:22 Desktop 09/15/23 10:28 DS 09/08/23 09/15/23 10:40 10:22 Wound Center Nurse 2 #15 RT LAT FT -Time 10:40 10:24 -Correct Patient Yes Yes -Correct Side, Site, Position Yes Yes -Correct Procedure Yes Yes -Procedure Performed Yes Yes -Type of Procedure Debridement Debridement -Clinical Debridement Subcutaneous Subcutaneous -Tissue Removed Subcutaneous Subcutaneous -Post Debridement (cm) - Length 0.5 0.5 -Post Debridement (cm) - Width 0.2 0.2 -Post Debridement (cm) - Depth 0.1 0.1 -Total Square (Post) (cm) 0.10 0.10 -Area of Debridement (cm) - Length 0.5 0.5 -Area of Debridement (cm) - Width 0.2 0.2 -Total Square (Area) (cm) 0.10 0.10 -Tunneling No No -Undermining/Tunneling No No -Circular Undermining No No -Wound/Ulcer Outcome Not Healed Not Healed -Ulcer Cleansing Rinsed/ Rinsed/ Irrigated with Irrigated with Saline Saline -Foul Odor after Cleansing No No -Bioengineered Tissue No -Bleeding Controlled with Pressure -Treatment Response Procedure Tolerated Well -Offloading Yes Yes -Type of Offloading Camwalker Camwalker -Debridement - Subq, 1st 20sq cm Yes Yes Pain Scale: 0-10 Numeric Is Patient Pain Free? Yes Yes - Nurse 3 - General Ulcer D/C NN Start: 09/08/23 10:12 Freq: Status: Active Protocol: Activity Type Activity Date Activity User E-sign Co-sign Detail Recorded Client Recorded Date Recorded By Document 09/08/23 10:57 [facility] [id number] 09/08/23 10:57 [facility] Document 09/15/23 10:40 [facility] Desktop 09/15/23 10:40 [facility] 09/08/23 09/15/23 10:57 10:40 Wound Care Center Nurse 3 #15 RT LAT FT -Ulcer Cleansing Rinsed/ Rinsed/ Irrigated with Irrigated with Saline Saline -Foul Odor after Cleansing No No -Primary Dressing Applied Promogran Padma Matter -Other Dressing dakins moist gauze -Primary Dressing Covered/Secured with Secured with Dry Gauze, Tape Secured with Tape -Other Covering abd -Promogran Padma Matter 1 Treatment Response Procedure Procedure Tolerated Well Tolerated Well Pain Scale: 0-10 Numeric Is Patient Pain Free? Yes Yes - Visit Discharge Discharge Condition Stable Stable Ambulatory Status Ambulatory, Ambulatory, Crutches Crutches Transportation Private Auto Private Auto Assessment/Plan Assessment/Plan (1) Ulcer of right foot with fat layer exposed: CODE(S): L97.512 - Non-pressure chronic ulcer of other part of right foot with fat layer exposed (2) Type 2 diabetes mellitus with diabetic polyneuropathy: CODE(S): E11.42 - Type 2 diabetes mellitus with diabetic polyneuropathy (3) Type 2 diabetes mellitus with foot ulcer: CODE(S): E11.621 - Type 2 diabetes mellitus with foot ulcer; L97.509 - Non-pressure chronic ulcer of other part of unspecified foot with unspecified severity (4) Venous insufficiency: CODE(S): I87.2 - Venous insufficiency (chronic) (peripheral) (5) Leg edema: CODE(S): R60.0 - Localized edema (6) Other specified peripheral vascular diseases: CODE(S): I73.89 - Other specified peripheral vascular diseases PLAN: Plan Patient seen and evaluated Ulceration to the plantar aspect of the right foot underwent debridement as noted in clinical panel above. Ulceration measures 0.5 cm x 0.2 cm x 0.1 cm. No signs of infection. Discussed stopping Dakin's wet-to-dry today and applied Padma to the wound base and dressed with dry sterile dressing. He was placed back into his CAM boot with plantar offloading padding and instructed to remain nonweightbearing to the right foot with the assistance of crutches. He is to change dressing daily. Wound demonstrates no change in size vs previous visit. He is progressing towards healed status. He has been approved for EpiFix as of 08/03/23. Patient states that he would have to pay a portion of this deductible towards the graft and he is unsure now if he would wish to proceed forward with applications. Discussed with him if he would allow graft applications he would have already healed. He still worried about his share of cost. Labs ordered including HgbA1c, patient has still not obtained. This was discussed to get this done. Previous A1c on record from 12/04/2021 was 6.2%. Radiographs obtained 06/14/2023 negative for osteomyelitis. Venous studies performed 06/14/2023 and are negative for DVT. He does have segmental valvular incompetence noted within the great saphenous veins bilaterally. Accessory saphenous vein in the right mid thigh is incompetent. Accessory saphenous vein in the left mid calf is incompetent. LEAS performed 06/14/2023: LLE?DP artery biphasic, PT artery monophasic; PT and DP PT artery noncompressible. PT artery indices 0.49, left DP indices 0.82, left digital brachial indices 0.74. RLE?right PT artery triphasic. PT and DP noncompressible. Right digital brachial indices 0.47. Interpretation: PVRs diminished at the ankle and digital levels on the left with right undetermined due to noncompressibility of the vasculature at the ankle level on the right. There is evidence of moderate arterial occlusive disease in the lower extremities bilateral. He has been referred to Dr. Harrington and has appointment with him next week. Discussed the importance of continued offloading in CAM boot with plantar offloading padding and to remain nonweightbearing to the right lower extremity with the assistance of crutches to aid in wound healing. Discussed that his foot type with prominent fifth metatarsal base secondary to his foot deformity will continue to create problems with wounds and healing and that he should always remain in diabetic shoe gear with protective offloading inserts. Discussed proper diabetic diet to aid in continued wound healing. Stressed importance of maintaining tight glycemic control to aid in wound healing. Discussed importance of daily foot checks and to never walk barefoot. Discussed socks include barefoot. Discussed adequate protein intake for continued wound healing. Toni supplementation also recommended. Discussed signs and symptoms of infection. Discussed if he notices redness about the wound that spreads on top of the foot or up the leg, if he has any purulent drainage from the wound site, has increasing foul odor to the wound, or if he experiences fever greater than 101 accompanied by nausea, vomiting, fever, chills these are signs of a progressing infection and he should report to the ED for IV antibiotics. He voices understanding of this. The following work up and care recommendations were made: Dressing: Padma and dry sterile dressing, change daily. Wash: Soap and water Tissue growth optimization: Padma Offload: CAM boot to the right foot with plantar offloading padding. He is to remain nonweightbearing with the assistance of crutches to the right foot Vascular: History of vascular disease. DP and PT pulses were palpable with adequate capillary fill time. Do not feel vascular status is impacting healing at this time. Edema: Recommended Tubigrip compression and following wound healing compression stockings 20 to 30 mmHg. Infection: No signs of infection. Patient currently finishing oral antibiotic course Pain: No pain secondary to diabetic peripheral polyneuropathy. May take [id number] Tylenol Extra Strength as needed for discomfort Host factors: DM type II with peripheral polyneuropathy, cavus foot, excessive pressure, obesity I answered all the patient's questions. To return to the wound healing center in 1 week or call sooner if the patient has any questions or concerns.
[2023-09-22 10:10] VITALS: BP 146/75; PULSE 93; RESP 20; TEMP 36.6; BMI 35.2
--- NOTE | 2023-09-22 13:06 | PCM.WC.PN ---
History of Present Illness Date of Service: 09/22/23 Chief Complaint: left foot ulcers History of Wound: This 57-year-old male presents to the wound care center as referral by his golf club weigher Dr. Enciso for plantar right foot ulceration. He has PMHx of bilateral foot wounds, partial fifth ray resection right foot, DM type II with peripheral polyneuropathy, cavovarus deformity right foot, chronic venous insufficiency, lower extremity edema, HTN, obesity. He states he did receive new shoes for [place] and 2 days later on May 04, 2023 states that he had new wound development to the plantar aspect of the fifth metatarsal base of the right foot. He states he feels that shoes were too tight. He does have peripheral polyneuropathy and did not notice they were too tight until wound developed. He did go to urgent care and received 7-day course of doxycycline. He did finish antibiotic course to completion and followed up with his golf club weigher in office and underwent debridement with Betadine to the wound margin and Aquacel to the wound base. He was dressed and dry sterile dressing and offloading in CAM boot and has remained nonweightbearing with the assistance of crutches. At this time he was urged to go to hospital for further treatment given history of infection and amputation however he did refuse at this time and requested evaluation at the wound care center. He was thus started on Augmentin and Cipro and is currently finishing oral antibiotic course. He states he is continue to remain nonweightbearing and changing dressings daily. He currently denies N/V/F/chills. Denies further complaints. Subjective Subjective Patient is a 58-year-old male who follows to the wound care center today for continued care of plantar subfifth metatarsal ulceration of the right foot. He continues to offloading CAM boot and has attempted to remain nonweightbearing with crutches. He has continued to change dressings daily with Dakins. States ulcer is nearing closure but has still not progressed much since last week. Denies constitutional symptoms. Denies further complaints. Objective Data Objective Data Vital Signs: Vital Signs Temp Pulse Resp BP O2 Del Method 97.9 F 93 20 H 146/75 H Room Air 09/22/23 10:10 09/22/23 10:10 09/22/23 10:10 09/22/23 10:10 09/08/23 10:13 Oxygen Delivery Method Room Air Weight: 124.284 kg Body Mass Index (BMI) 35.2 Physical Exam Const alert, oriented x3 and no apparent distress General Appearance: cooperative HEENT normocephalic Eyes General Eye: normal appearance of both eyes Neck General: normal visual inspection Lymph Lymphatic: no lymphadenopathy noted and no lymphedema noted Resp normal respiratory effort Cardio regular rate and regular rhythm Extremity normal capillary refill, no calf tenderness and no pedal edema Extremity Narrative: Vascular: DP and PT pulses palpable. CFT less than 4 seconds to the digits. There is mild nonpitting edema about foot and ankle. Dermatological: There is a ulceration noted to the plantar aspect of the right foot subfifth metatarsal base/styloid process secondary to cavovarus deformity of the foot and continued pressure. Ulceration demonstrates granular base with scant serosanguineous drainage and healthy appearing tissue at the wound margins. No purulent drainage, no erythema, no malodor, no lymphangitic streaking, no palpable fluctuance/bogginess noted, no visible abscess formation. Musculoskeletal: Muscle strength 5 of 5 age-appropriate. Prominent styloid process fifth metatarsal base with cavovarus foot deformity. Partial fifth Ray resection right foot. There is decreased range of motion of the ankle joint dorsiflexion decreased range of motion of the first metatarsophalangeal joint without pain or crepitus. Skin no rashes or lesions noted, skin turgor normal and no jaundice Neuro moves all extremities Debridement Note Debridement Note Wound debrided: Subfifth metatarsal base right foot Laterality: Right Wound Grade/Stage: Francois stage I Type of Debridement: Excisional debridement Anesthesia Used: 5% Lidocaine Gel Depth: Down to and including healthy tissue and in the subcutaneous layer Percentage of wound debrided: 100 Instrument Used: #15 blade Tissue Removed: Fibrous, devitalized subcutaneous, biofilm, slough Severity: Fat Layer Exposed Amount of bleeding with debridement: Mild Bleeding Controlled with: Compression and gauze Patient tolerated procedure: Patient tolerated procedure well Post-Debridement Measurements and Additional Note: Post-Debridement Measurements/Treatment - Nurse 1 - General Ulcer Assessment Start: 09/08/23 10:12 Freq: Status: Active Protocol: LC.LOWSOULEYMANE Activity Type Activity Date Activity User E-sign Co-sign Detail Recorded Client Recorded Date Recorded By Document 09/08/23 10:13 KW Desktop 09/08/23 10:18 KW Document 09/15/23 10:12 DL Desktop 09/15/23 10:18 DL Document 09/22/23 10:10 DL [email or web address] 09/22/23 10:16 DL 09/08/23 09/15/23 09/22/23 10:13 10:12 10:10 - Today's Visit Information Type of service Follow-up Visit Follow-up Visit Follow-up Visit (Physician/DIVISIONAL MERCHANDISING MANAGER (Physician/DIVISIONAL MERCHANDISING MANAGER (Physician/DIVISIONAL MERCHANDISING MANAGER ) ) ) Arrival Mode Ambulatory, Ambulatory, Ambulatory, Crutches Crutches Crutches Transfer Assistance None None Patient Identification Verified (Name & Yes Yes Yes ) Patient Requires Transmission-Based No No Precautions Finger Stick Blood Sugar(mg/dl) (if [phone] indicated): Blood Sugar Stated by Stated by Stated by Patient Patient Patient Height and Weight Body Mass Index (BMI) 35.2 35.2 35.2 BMI Classification Obese Obese Obese Vital Signs Temperature (97.8 F-99.1 F) 97.7 F L 97.3 F L 97.9 F Temperature Source Temporal Temporal Temporal Pulse Rate (60-100) 95 102 H 93 Pulse Location Monitor Monitor Monitor Respiratory Rate (12-18) 18 20 H 20 H Respiratory rate source Observation Observation Observation Oxygen Delivery Method Room Air Blood Pressure (90/60-120/80) 140/72 H 162/78 H 146/75 H Blood Pressure Mean (mm Hg) 94 106 98 Source Monitor Monitor Monitor Position Semi-Fowlers Blood Pressure Location Left Arm History Since Last Visit- (Skip if this is Patient's initial visit) Have you changed medications since your No No No last visit? Any new allergies or adverse reactions No No No Had a fall/change in ADL's that may No No No increase risk of falls Signs or symptoms of abuse and/or No No No neglect since last visit Have you been in the hospital since your No No No last visit? Has dressing in place as prescribed Yes Yes Yes Has compression in place as prescribed No Yes N/A Has offloadiing in place as prescribed Yes Yes Yes Experienced any changes in pain level or No No No management Left Footwear Regular Shoe Removable Cast Walker/Walking Boot Right Footwear Removable Cast Regular Shoe Walker/Walking Boot Pain Scale: 0-10 Numeric Is Patient Pain Free? Yes Yes Yes - Nurse 1 - General Ulcer Measurement Start: 09/08/23 10:12 Freq: Status: Active Protocol: Activity Type Activity Date Activity User E-sign Co-sign Detail Recorded Client Recorded Date Recorded By Document 09/08/23 10:13 KW Desktop 09/08/23 10:18 KW Document 09/15/23 10:12 DL Desktop 09/15/23 10:18 DL Document 09/22/23 10:10 DL [email or web address] 09/22/23 10:16 DL 09/08/23 09/15/23 09/22/23 10:13 10:12 10:10 Wound Center Nurse 1 #15 RT LAT FT -Current Size (cm) - Length 0.7 0.6 0.4 -Current Size (cm) - Width 0.1 0.2 0.2 -Current Size (cm) - Depth 0.2 0.2 0.3 -Total Square Cm 0.07 0.12 0.08 -Maximum Distance #2 (cm) 0.2 0.2 -Circular Undermining Yes Yes -Exudate Amt Small Small Small -Exudate Type Serosanguineous Serosanguineous Serosanguineous -Wound Margin Distinct, Thickened Thickened Outline Attached -Granulation Amt Large (67-100%) Small (1-33%) Small (1-33%) -Granulation Quality Clute Clute Red -Necrosis Amt None Present (0 Small (1-33%) %) -Necrotic Tissue Type Eschar -Structure Exposed N/A N/A -Texture (Susana-wound Skin Appearance) Assessed,Callus Callus Scarring -Moisture (Susana-wound Skin Appearance) Assessed No Abnormality No Abnormality -Color (Susana-wound Skin Appearance) Assessed No Abnormality No Abnormality -Temperature (Susana-wound Skin No Abnormality No Abnormality No Abnormality Appearance) (Pt Warm) (Pt Warm) (Pt Warm) -Tenderness on Palpation (Susana-wound No No Skin Appearance) -Ulcer Cleansing Rinsed/ Soap and Water Rinsed/ Irrigated with Irrigated with Saline Saline -Foul Odor after Cleansing No No No -Anesthetic Used 5% Lidocaine 5% Lidocaine 5% Lidocaine Gel Gel Gel WC - Nurse 2 - General Ulcer CM Notes Start: 09/08/23 10:12 Freq: Status: Active Protocol: Activity Type Activity Date Activity User E-sign Co-sign Detail Recorded Client Recorded Date Recorded By Document 09/08/23 10:40 [facility] Desktop 09/08/23 10:42 BMF Document 09/15/23 10:22 DS Desktop 09/15/23 10:28 DS Document 09/22/23 10:54 [facility] [email or web address] 09/22/23 11:00 BMF 09/08/23 09/15/23 09/22/23 10:40 10:22 10:54 Wound Center Nurse 2 #15 RT LAT FT -Time 10:40 10:24 10:56 -Correct Patient Yes Yes Yes -Correct Side, Site, Position Yes Yes Yes -Correct Procedure Yes Yes Yes -Procedure Performed Yes Yes Yes -Type of Procedure Debridement Debridement Debridement -Clinical Debridement Subcutaneous Subcutaneous Subcutaneous -Tissue Removed Subcutaneous Subcutaneous Subcutaneous -Post Debridement (cm) - Length 0.5 0.5 0.7 -Post Debridement (cm) - Width 0.2 0.2 0.2 -Post Debridement (cm) - Depth 0.1 0.1 0.1 -Total Square (Post) (cm) 0.10 0.10 0.14 -Area of Debridement (cm) - Length 0.5 0.5 0.7 -Area of Debridement (cm) - Width 0.2 0.2 0.2 -Total Square (Area) (cm) 0.10 0.10 0.14 -Tunneling No No No -Undermining/Tunneling No No No -Circular Undermining No No No -Wound/Ulcer Outcome Not Healed Not Healed Not Healed -Ulcer Cleansing Rinsed/ Rinsed/ Rinsed/ Irrigated with Irrigated with Irrigated with Saline Saline Saline -Foul Odor after Cleansing No No No -Bioengineered Tissue No No -Bleeding Controlled with Pressure Pressure -Treatment Response Procedure Procedure Tolerated Well Tolerated Well -Offloading Yes Yes -Type of Offloading Camwalker Camwalker Camwalker -Debridement - Subq, 1st 20sq cm Yes Yes Yes Pain Scale: 0-10 Numeric Is Patient Pain Free? Yes Yes Yes WC - Nurse 3 - General Ulcer D/C NN Start: 09/08/23 10:12 Freq: Status: Active Protocol: Activity Type Activity Date Activity User E-sign Co-sign Detail Recorded Client Recorded Date Recorded By Document 09/08/23 10:57 [facility] [id number] 09/08/23 10:57 BM Document 09/15/23 10:40 [facility] Desktop 09/15/23 10:40 [facility] Document 09/22/23 11:17 DL [email or web address] 09/22/23 11:18 DL 09/08/23 09/15/23 09/22/23 10:57 10:40 11:17 Wound Care Center Nurse 3 #15 RT LAT FT -Ulcer Cleansing Rinsed/ Rinsed/ Rinsed/ Irrigated with Irrigated with Irrigated with Saline Saline Saline -Foul Odor after Cleansing No No No -Primary Dressing Applied Promogran Promogran Padma Matter Padma Matter -Other Dressing dakins moist gauze -Primary Dressing Covered/Secured with Secured with Dry Gauze, Dry Gauze, Tape Secured with Secured with Tape Tape -Other Covering abd -Promogran Padma Matter 1 1 Treatment Response Procedure Procedure Procedure Tolerated Well Tolerated Well Tolerated Well Pain Scale: 0-10 Numeric Is Patient Pain Free? Yes Yes Yes WC - Visit Discharge Discharge Condition Stable Stable Stable Ambulatory Status Ambulatory, Ambulatory, Ambulatory, Crutches Crutches Crutches Transportation Private Auto Private Auto Private Auto Assessment/Plan Assessment/Plan (1) Ulcer of right foot with fat layer exposed: CODE(S): L97.512 - Non-pressure chronic ulcer of other part of right foot with fat layer exposed (2) Type 2 diabetes mellitus with diabetic polyneuropathy: CODE(S): E11.42 - Type 2 diabetes mellitus with diabetic polyneuropathy (3) Type 2 diabetes mellitus with foot ulcer: CODE(S): E11.621 - Type 2 diabetes mellitus with foot ulcer; L97.509 - Non-pressure chronic ulcer of other part of unspecified foot with unspecified severity (4) Venous insufficiency: CODE(S): I87.2 - Venous insufficiency (chronic) (peripheral) (5) Leg edema: CODE(S): R60.0 - Localized edema (6) Other specified peripheral vascular diseases: CODE(S): I73.89 - Other specified peripheral vascular diseases PLAN: Plan Patient seen and evaluated Ulceration to the plantar aspect of the right foot underwent debridement as noted in clinical panel above. Ulceration measures 0.7 cm x 0.2 cm x 0.1 cm. No signs of infection. Discussed stopping Dakin's wet-to-dry today and applied Padma to the wound base and dressed with dry sterile dressing. He was placed back into his CAM boot with plantar offloading padding and instructed to remain nonweightbearing to the right foot with the assistance of crutches. He is to change dressing daily. Wound demonstrates slight increase in size vs previous visit. He is progressing towards healed status. He has been approved for EpiFix as of 08/03/23. Patient states that he would have to pay a portion of this deductible towards the graft and he is unsure now if he would wish to proceed forward with applications. Discussed with him if he would allow graft applications he would have already healed. He still worried about his share of cost. Labs ordered including HgbA1c, patient has still not obtained. This was discussed to get this done. Previous A1c on record from 12/04/2021 was 6.2%. Radiographs obtained 06/14/2023 negative for osteomyelitis. Venous studies performed 06/14/2023 and are negative for DVT. He does have segmental valvular incompetence noted within the great saphenous veins bilaterally. Accessory saphenous vein in the right mid thigh is incompetent. Accessory saphenous vein in the left mid calf is incompetent. LEAS performed 06/14/2023: LLE?DP artery biphasic, PT artery monophasic; PT and DP PT artery noncompressible. PT artery indices 0.49, left DP indices 0.82, left digital brachial indices 0.74. RLE?right PT artery triphasic. PT and DP noncompressible. Right digital brachial indices 0.47. Interpretation: PVRs diminished at the ankle and digital levels on the left with right undetermined due to noncompressibility of the vasculature at the ankle level on the right. There is evidence of moderate arterial occlusive disease in the lower extremities bilateral. He has been referred to Dr. Harrington and has appointment with him next week. Discussed the importance of continued offloading in CAM boot with plantar offloading padding and to remain nonweightbearing to the right lower extremity with the assistance of crutches to aid in wound healing. Discussed that his foot type with prominent fifth metatarsal base secondary to his foot deformity will continue to create problems with wounds and healing and that he should always remain in diabetic shoe gear with protective offloading inserts. Discussed proper diabetic diet to aid in continued wound healing. Stressed importance of maintaining tight glycemic control to aid in wound healing. Discussed importance of daily foot checks and to never walk barefoot. Discussed socks include barefoot. Discussed adequate protein intake for continued wound healing. Toni supplementation also recommended. Discussed signs and symptoms of infection. Discussed if he notices redness about the wound that spreads on top of the foot or up the leg, if he has any purulent drainage from the wound site, has increasing foul odor to the wound, or if he experiences fever greater than 101 accompanied by nausea, vomiting, fever, chills these are signs of a progressing infection and he should report to the ED for IV antibiotics. He voices understanding of this. The following work up and care recommendations were made: Dressing: Padma and dry sterile dressing, change daily. Wash: Soap and water Tissue growth optimization: Padma Offload: CAM boot to the right foot with plantar offloading padding. He is to remain nonweightbearing with the assistance of crutches to the right foot Vascular: History of vascular disease. DP and PT pulses were palpable with adequate capillary fill time. Do not feel vascular status is impacting healing at this time. Edema: Recommended Tubigrip compression and following wound healing compression stockings 20 to 30 mmHg. Infection: No signs of infection. Patient currently finishing oral antibiotic course Pain: No pain secondary to diabetic peripheral polyneuropathy. May take [id number] Tylenol Extra Strength as needed for discomfort Host factors: DM type II with peripheral polyneuropathy, cavus foot, excessive pressure, obesity I answered all the patient's questions. To return to the wound healing center in 1 week or call sooner if the patient has any questions or concerns.
[2023-09-29 09:46] VITALS: BP 155/75; PULSE 92; RESP 20; TEMP 36.3; BMI 35.2
--- NOTE | 2023-09-29 10:17 | PN.PCM_ITS ---
History of Present Illness Date of Service: 09/29/23 Chief Complaint: left foot ulcers History of Wound: This 58-year-old male presents to the wound care center as referral by his chemistry specialist Dr. Enciso for plantar right foot ulceration. He has PMHx of bilateral foot wounds, partial fifth ray resection right foot, DM type II with peripheral polyneuropathy, cavovarus deformity right foot, chronic venous insufficiency, lower extremity edema, HTN, obesity. He states he did receive new shoes for [place] and 2 days later on May 04, 2023 states that he had new wound development to the plantar aspect of the fifth metatarsal base of the right foot. He states he feels that shoes were too tight. He does have peripheral polyneuropathy and did not notice they were too tight until wound developed. He did go to urgent care and received 7-day course of doxycycline. He did finish antibiotic course to completion and followed up with his chemistry specialist in office and underwent debridement with Betadine to the wound margin and Aquacel to the wound base. He was dressed and dry sterile dressing and offloading in CAM boot and has remained nonweightbearing with the assistance of crutches. At this time he was urged to go to hospital for further treatment given history of infection and amputation however he did refuse at this time and requested evaluation at the wound care center. He was thus started on Augmentin and Cipro and is currently finishing oral antibiotic course. He states he is c ontinue to remain nonweightbearing and changing dressings daily. He currently denies N/V/F/chills. Denies further complaints. Subjective Subjective Patient is a 58-year-old male who follows to the wound care center today for continued care of plantar subfifth metatarsal ulceration of the right foot. He continues to offloading CAM boot and has attempted to remain nonweightbearing with crutches. He has continued to change dressings daily with Dakins. States ulcer is nearing closure but has still not progressed much since last week. Denies constitutional symptoms. Denies further complaints. Objective Data Objective Data Vital Signs: Vital Signs Temp Pulse Resp BP O2 Del Method 97.4 F L 92 20 H 155/75 H Room Air 09/29/23 09:46 09/29/23 09:46 09/29/23 09:46 09/29/23 09:46 09/08/23 10:13 Oxygen Delivery Method Room Air Weight: 124.284 kg Body Mass Index (BMI) 35.2 Physical Exam Const alert, oriented x3 and no apparent distress General Appearance: cooperative HEENT normocephalic Eyes General Eye: normal appearance of both eyes Neck General: normal visual inspection Lymph Lymphatic: no lymphadenopathy noted and no lymphedema noted Resp normal respiratory effort Cardio regular rate and regular rhythm Extremity normal capillary refill, no calf tenderness and no pedal edema Extremity Narrative: Vascular: DP and PT pulses palpable. CFT less than 4 seconds to the digits. There is mild nonpitting edema about foot and ankle. Dermatological: There is a ulceration noted to the plantar aspect of the right foot subfifth metatarsal base/styloid process secondary to cavovarus deformity of the foot and continued pressure. Ulceration demonstrates granular base with scant serosanguineous drainage and healthy appearing tissue at the wound margins. No purulent drainage, no erythema, no malodor, no lymphangitic streaking, no palpable fluctuance/bogginess noted, no visible abscess formation. Musculoskeletal: Muscle strength 5 of 5 age-appropriate. Prominent styloid process fifth metatarsal base with cavovarus foot deformity. Partial fifth Ray resection right foot. There is decreased range of motion of the ankle joint dorsiflexion decreased range of motion of the first metatarsophalangeal joint w ithout pain or crepitus. Skin no rashes or lesions noted, skin turgor normal and no jaundice Neuro moves all extremities Debridement Note Debridement Note Wound debrided: Subfifth metatarsal base right foot Laterality: Right Wound Grade/Stage: Francois stage I Type of Debridement: Excisional debridement Anesthesia Used: 5% Lidocaine Gel Depth: Down to and including healthy tissue and in the subcutaneous layer Percentage of wound debrided: 100 Instrument Used: #15 blade Tissue Removed: Fibrous, devitalized subcutaneous, biofilm, slough Severity: Fat Layer Exposed Amount of bleeding with debridement: Mild Bleeding Controlled with: Compression and gauze Patient tolerated procedure: Patient tolerated procedure well Post-Debridement Measurements and Additional Note: Post-Debridement Measurements/Treatment WC - Nurse 1 - General Ulcer Assessment Start: 09/08/23 10:12 Freq: Status: Active Protocol: LIZZETTE Activity Type Activity Date Activity User E-sign Co-sign Detail Recorded Client Recorded Date Recorded By Document 09/08/23 10:13 KW Desktop 05/02/24 10:18 KW Document 09/15/23 10:12 DL Desktop 09/15/23 10:18 DL Document 09/22/23 10:10 DL [email or web address] 09/22/23 10:16 DL Document 09/29/23 09:46 DL [email or web address] 09/29/23 09:52 DL 09/08/23 09/15/23 09/22/23 10:13 10:12 10:10 WC - Today's Visit Information Type of service Follow-up Visit Follow-up Visit Follow-up Visit (Physician/[employer]IEF (Physician/HEL[employer]TER CREW CHIEF (Physician/HELIC[employer]TER [employer]W CHIEF ) ) ) Arrival Mode Ambulatory, Ambulatory, Ambulatory, Crutches Crutches Crutches Transfer Assistance None None Patient Identification Verified (Name & Yes Yes Yes ) Patient Requires Transmission-Based No No Precautions Finger Stick Blood Sugar(mg/dl) (if [phone] indicated): Blood Sugar Stated by Stated by Stated by Patient Patient Patient Height and Weight Body Mass Index (BMI) 35.2 35.2 35.2 BMI Classification Obese Obese Obese Vital Signs Temperature (97.8 F-99.1 F) 97.7 F L 97.3 F L 97.9 F Temperature Source Temporal Temporal Temporal Pulse Rate (60-100) 95 102 H 93 Pulse Location Monitor Monitor Monitor Respiratory Rate (12-18) 18 20 H 20 H Respiratory rate source Observation Observation Observation Oxygen Delivery Method Room Air Blood Pressure (90/60-120/80) 140/72 H 162/78 H 146/75 H Blood Pressure Mean (mm Hg) 94 106 98 Source Monitor Monitor Monitor Position Semi-Fowlers Blood Pressure Location Left Arm History Since Last Visit- (Skip if this is Patient's initial visit) Have you changed medications since your No No No last visit? Any new allergies or adverse reactions No No No Had a fall/change in ADL's that may No No No increase risk of falls Signs or symptoms of abuse and/or No No No neglect since last visit Have you been in the hospital since your No No No last visit? Has dressing in place as prescribed Yes Yes Yes Has compression in place as prescribed No Yes N/A Has offloadiing in place as prescribed Yes Yes Yes Experienced any changes in pain level or No No No management Left Footwear Regular Shoe Removable Cast Walker/Walking Boot Right Footwear Removable Cast Regular Shoe Walker/Walking Boot Pain Scale: 0-10 Numeric Is Patient Pain Free? Yes Yes Yes 09/29/23 09:46 WC - Today's Visit Information Type of service Follow-up Visit (Physician/[employer]IC[employer]IEF ) Arrival Mode Ambulatory, Crutches Transfer Assistance None Patient Identification Verified (Name & Yes ) Patient Requires Transmission-Based No Precautions Finger Stick Blood Sugar(mg/dl) (if 114 indicated): Blood Sugar Stated by Patient Height and Weight Body Mass Index (BMI) 35.2 BMI Classification Obese Vital Signs Temperature (97.8 F-99.1 F) 97.4 F L Temperature Source Temporal Pulse Rate (60-100) 92 Pulse Location Monitor Respiratory Rate (12-18) 20 H Respiratory rate source Observation Oxygen Delivery Method Blood Pressure (90/60-120/80) 155/75 H Blood Pressure Mean (mm Hg) 101 Source Monitor Position Blood Pressure Location History Since Last Visit- (Skip if this is Patient's initial visit) Have you changed medications since your No last visit? Any new allergies or adverse reactions No Had a fall/change in ADL's that may No increase risk of falls Signs or symptoms of abuse and/or No neglect since last visit Have you been in the hospital since your No last visit? Has dressing in place as prescribed Yes Has compression in place as prescribed N/A Has offloadiing in place as prescribed Yes Experienced any changes in pain level or No management Left Footwear Regular Shoe Right Footwear Removable Cast Walker/Walking Boot Pain Scale: 0-10 Numeric Is Patient Pain Free? Yes - Nurse 1 - General Ulcer Measurement Start: 09/08/23 10:12 Freq: Status: Active Protocol: Activity Type Activity Date Activity User E-sign Co-sign Detail Recorded Client Recorded Date Recorded By Document 09/08/23 10:13 KW Desktop 09/08/23 10:18 KW Document 09/15/23 10:12 DL Desktop 09/15/23 10:18 DL Document 09/22/23 10:10 DL [email or web address] 09/22/23 10:16 DL Document 09/29/23 09:46 DL [email or web address] 09/29/23 09:52 DL 09/08/23 09/15/23 09/22/23 10:13 10:12 10:10 Wound Center Nurse 1 #15 RT LAT FT -Current Size (cm) - Length 0.7 0.6 0.4 -Current Size (cm) - Width 0.1 0.2 0.2 -Current Size (cm) - Depth 0.2 0.2 0.3 -Total Square Cm 0.07 0.12 0.08 -Maximum Distance #2 (cm) 0.2 0.2 -Circular Undermining Yes Yes -Exudate Amt Small Small Small -Exudate Type Serosanguineous Serosanguineous Serosanguineous -Wound Margin Distinct, Thickened Thickened Outline Attached -Granulation Amt Large (67-100%) Small (1-33%) Small (1-33%) -Granulation Quality [place] Red -Necrosis Amt None Present (0 Small (1-33%) %) -Necrotic Tissue Type Eschar -Structure Exposed N/A N/A -Texture (Susana-wound Skin Appearance) Assessed,Callus Callus Scarring -Moisture (Susana-wound Skin Appearance) Assessed No Abnormality No Abnormality -Color (Susana-wound Skin Appearance) Assessed No Abnormality No Abnormality -Temperature (Susana-wound Skin No Abnormality No Abnormality No Abnormality Appearance) (Pt Warm) (Pt Warm) (Pt Warm) -Tenderness on Palpation (Susana-wound No No Skin Appearance) -Ulcer Cleansing Rinsed/ Soap and Water Rinsed/ Irrigated with Irrigated with Saline Saline -Foul Odor after Cleansing No No No -Anesthetic Used 5% Lidocaine 5% Lidocaine 5% Lidocaine Gel Gel Gel 09/29/23 09:46 Wound Center Nurse 1 #15 RT LAT FT -Current Size (cm) - Length 0.2 -Current Size (cm) - Width 0.2 -Current Size (cm) - Depth 0.2 -Total Square Cm 0.04 -Maximum Distance #2 (cm) 0.2 -Circular Undermining Yes -Exudate Amt Small -Exudate Type Sanguineous -Wound Margin Distinct, Outline Attached -Granulation Amt Small (1-33%) -Granulation Quality Red -Necrosis Amt Small (1-33%) -Necrotic Tissue Type Adherent Slough -Structure Exposed N/A -Texture (Susana-wound Skin Appearance) Scarring -Moisture (Susana-wound Skin Appearance) No Abnormality -Color (Susana-wound Skin Appearance) Hemosiderin Staining -Temperature (Susana-wound Skin No Abnormality Appearance) (Pt Warm) -Tenderness on Palpation (Susana-wound No Skin Appearance) -Ulcer Cleansing Rinsed/ Irrigated with Saline -Foul Odor after Cleansing No -Anesthetic Used 5% Lidocaine Gel WC - Nurse 2 - General Ulcer CM Notes Start: 09/08/23 10:12 Freq: Status: Active Protocol: Activity Type Activity Date Activity User E-sign Co-sign Detail Recorded Client Recorded Date Recorded By Document 09/08/23 10:40 BMF Desktop 09/08/23 10:42 BMF Document 09/15/23 10:22 DS Desktop 09/15/23 10:28 DS Document 09/22/23 10:54 [facility] [email or web address] 09/22/23 11:00 BMF 09/08/23 09/15/23 09/22/23 10:40 10:22 10:54 Wound Center Nurse 2 #15 RT LAT FT -Time 10:40 10:24 10:56 -Correct Patient Yes Yes Yes -Correct Side, Site, Position Yes Yes Yes -Correct Procedure Yes Yes Yes -Procedure Performed Yes Yes Yes -Type of Procedure Debridement Debridement Debridement -Clinical Debridement Subcutaneous Subcutaneous Subcutaneous -Tissue Removed Subcutaneous Subcutaneous Subcutaneous -Post Debridement (cm) - Length 0.5 0.5 0.7 -Post Debridement (cm) - Width 0.2 0.2 0.2 -Post Debridement (cm) - Depth 0.1 0.1 0.1 -Total Square (Post) (cm) 0.10 0.10 0.14 -Area of Debridement (cm) - Length 0.5 0.5 0.7 -Area of Debridement (cm) - Width 0.2 0.2 0.2 -Total Square (Area) (cm) 0.10 0.10 0.14 -Tunneling No No No -Undermining/Tunneling No No No -Circular Undermining No No No -Wound/Ulcer Outcome Not Healed Not Healed Not Healed -Ulcer Cleansing Rinsed/ Rinsed/ Rinsed/ Irrigated with Irrigated with Irrigated with Saline Saline Saline -Foul Odor after Cleansing No No No -Bioengineered Tissue No No -Bleeding Controlled with Pressure Pressure -Treatment Response Procedure Procedure Tolerated Well Tolerated Well -Offloading Yes Yes -Type of Offloading Camwalker Camwalker Camwalker -Debridement - Subq, 1st 20sq cm Yes Yes Yes Pain Scale: 0-10 Numeric Is Patient Pain Free? Yes Yes Yes WC - Nurse 3 - General Ulcer D/C NN Start: 09/08/23 10:12 Freq: Status: Active Protocol: Activity Type Activity Date Activity User E-sign Co-sign Detail Recorded Client Recorded Date Recorded By Document 09/08/23 10:57 [facility] [id number] 09/08/23 10:57 [facility] Document 09/15/23 10:40 [facility] Desktop 09/15/23 10:40 [facility] Document 09/22/23 11:17 DL [email or web address] 09/22/23 11:18 DL 09/08/23 09/15/23 09/22/23 10:57 10:40 11:17 Wound Care Center Nurse 3 #15 RT LAT FT -Ulcer Cleansing Rinsed/ Rinsed/ Rinsed/ Irrigated with Irrigated with Irrigated with Saline Saline Saline -Foul Odor after Cleansing No No No -Primary Dressing Applied Promogran Promogran Padma Matter Padma Matter -Other Dressing dakins moist gauze -Primary Dressing Covered/Secured with Secured with Dry Gauze, Dry Gauze, Tape Secured with Secured with Tape Tape -Other Covering abd -Promogran Padma Matter 1 1 Treatment Response Procedure Procedure Procedure Tolerated Well Tolerated Well Tolerated Well Pain Scale: 0-10 Numeric Is Patient Pain Free? Yes Yes Yes - Visit Discharge Discharge Condition Stable Stable Stable Ambulatory Status Ambulatory, Ambulatory, Ambulatory, Crutches Crutches Crutches Transportation Private Auto Private Auto Private Auto Assessment/Plan Assessment/Plan (1) Ulcer of right foot with fat layer exposed: CODE(S): L97.512 - Non-pressure chronic ulcer of other part of right foot with fat layer exposed (2) Type 2 diabetes mellitus with diabetic polyneuropathy: CODE(S): E11.42 - Type 2 diabetes mellitus with diabetic polyneuropathy (3) Type 2 diabetes mellitus with foot ulcer: CODE(S): E11.621 - Type 2 diabetes mellitus with foot ulcer; L97.509 - Non-pressure chronic ulcer of other part of unspecified foot with unspecified severity (4) Venous insufficiency: CODE(S): I87.2 - Venous insufficiency (chronic) (peripheral) (5) Leg edema: CODE(S): R60.0 - Localized edema (6) Other specified peripheral vascular diseases: CODE(S): I73.89 - Other specified peripheral vascular diseases PLAN: Plan Patient seen and evaluated Ulceration to the plantar aspect of the right foot underwent debridement as noted in clinical panel above. Ulceration measures 0.1 cm x 0.1 cm x 0.1 cm. No signs of infection. Padma to the wound base and dressed with dry sterile dressing. He was placed back into his CAM boot with plantar offloading padding and instructed to remain nonweightbearing to the right foot with the assistance of crutches. He is to change dressing daily. Wound demonstrates slight decrease in size vs previous visit. He is progressing towards healed status, however this has been slow. He has been approved for EpiFix as of 08/03/23. Patient states that he would have to pay a portion of this deductible towards the graft and he is unsure now if he would wish to proceed forward with applications. Discussed with him if he would allow graft applications he would have already healed. He still worried about his share of cost. Labs ordered including HgbA1c, patient has still not obtained. This was discussed to get this done. Previous A1c on record from 12/04/2021 was 6.2%. Radiographs obtained 06/14/2023 negative for osteomyelitis. Venous studies performed 06/14/2023 and are negative for DVT. He does have segmental valvular incompetence noted within the great saphenous veins bilaterally. Accessory saphenous vein in the right mid thigh is incompetent. Accessory saphenous vein in the left mid calf is incompetent. LEAS performed 06/14/2023: LLE?DP artery biphasic, PT artery monophasic; PT and DP PT artery noncompressible. PT artery indices 0.49, left DP indices 0.82, left digital brachial indices 0.74. RLE?right PT artery triphasic. PT and DP noncompressible. Right digital brachial indices 0.47. Interpretation: PVRs diminished at the ankle and digital levels on the left with right undetermined due to noncompressibility of the vasculature at the ankle level on the right. There is evidence of moderate arterial occlusive disease in the lower extremities bilateral. He has been referred to Dr. Harrington and has appointment with him next week. Discussed the importance of continued offloading in CAM boot with plantar offloading padding and to remain nonweightbearing to the right lower extremity with the assistance of crutches to aid in wound healing. Discussed that his foot type with prominent fifth metatarsal base secondary to his foot deformity will continue to create problems with wounds and healing and that he should always remain in diabetic shoe gear with protective offloading inserts. Discussed proper diabetic diet to aid in continued wound healing. Stressed importance of maintaining tight glycemic control to aid in wound healing. Discussed importance of daily foot checks and to never walk barefoot. Discussed socks include barefoot. Discussed adequate protein intake for continued wound healing. Toni supplementation also recommended. Discussed signs and symptoms of infection. Discussed if he notices redness about the wound that spreads on top of the foot or up the leg, if he has any purulent drainage from the wound site, has increasing foul odor to the wound, or if he experiences fever greater than 101 accompanied by nausea, vomiting, fever, chills these are signs of a progressing infection and he should report to the ED for IV antibiotics. He voices understanding of this. The following work up and care recommendations were made: Dressing: Padma and dry sterile dressing, change daily. Wash: Soap and water Tissue growth optimization: Padma Offload: CAM boot to the right foot with plantar offloading padding. He is to remain nonweightbearing with the assistance of crutches to the right foot Vascular: History of vascular disease. DP and PT pulses were palpable with adequate capillary fill time. Do not feel vascular status is impacting healing at this time. Edema: Recommended Tubigrip compression and following wound healing compression stockings 20 to 30 mmHg. Infection: No signs of infection. Patient currently finishing oral antibiotic course Pain: No pain secondary to diabetic peripheral polyneuropathy. May take [id number] Tylenol Extra Strength as needed for discomfort Host factors: DM type II with peripheral polyneuropathy, cavus foot, excessive pressure, obesity I answered all the patient's questions. To return to the wound healing center in 2 weeks or call sooner if the patient has any questions or concerns.
== END 2023-10-07 23:59 | disposition home or self-care (01) ==
LOC: WC 09:45
PROVIDERS: PCP Student in an Organized Health Care Education/Training Program; Referring Provider Podiatrist Foot & Ankle Surgery; Visit Provider Student in an Organized Health Care Education/Training Program
DX: E11.621 Type 2 diabetes mellitus with foot ulcer (principal); L97.412 Non-pressure chronic ulcer of right heel and midfoot with fat layer exposed; E11.42 Type 2 diabetes mellitus with diabetic polyneuropathy; R60.0 Localized edema; I10 Essential (primary) hypertension; Q66.11 Congenital talipes calcaneovarus, right foot; I87.2 Venous insufficiency (chronic) (peripheral); E66.9 Obesity, unspecified; Z68.35 Body mass index [BMI] 35.0-35.9, adult; I73.89 Other specified peripheral vascular diseases
CPT/HCPCS: 11042

== ENCOUNTER 2023-10-27 10:00 | Outpatient (RCR) | payer OTHER, SELFPAY ==
[2023-10-08 01:07] VITALS: BP 136/72; PULSE 89; RESP 20; TEMP 37.1; BMI 35.2
[2023-10-13 10:05] VITALS: BP 150/68; PULSE 84; RESP 20; TEMP 36.1; BMI 35.2
--- NOTE | 2023-10-13 13:13 | PN.PCM_ITS ---
History of Present Illness Date of Service: 10/13/23 Chief Complaint: left foot ulcers History of Wound: This 58-year-old male presents to the wound care center as referral by his human resource officer Dr. Enciso for plantar right foot ulceration. He has PMHx of bilateral foot wounds, partial fifth ray resection right foot, DM type II with peripheral polyneuropathy, cavovarus deformity right foot, chronic venous insufficiency, lower extremity edema, HTN, obesity. He states he did receive new shoes for Rohith and 2 days later on May 04, 2023 states that he had new wound development to the plantar aspect of the fifth metatarsal base of the right foot. He states he feels that shoes were too tight. He does have peripheral polyneuropathy and did not notice they were too tight until wound developed. He did go to urgent care and received 7-day course of doxycycline. He did finish antibiotic course to completion and followed up with his human resource officer in office and underwent debridement with Betadine to the wound margin and Aquacel to the wound base. He was dressed and dry sterile dressing and offloading in CAM boot and has remained nonweightbearing with the assistance of crutches. At this time he was urged to go to hospital for further treatment given history of infection and amputation however he did refuse at this time and requested evaluation at the wound care center. He was thus started on Augmentin and Cipro and is currently finishing oral antibiotic course. He states he is c ontinue to remain nonweightbearing and changing dressings daily. He currently denies N/V/F/chills. Denies further complaints. Subjective Subjective Patient is a 58-year-old male who follows to the wound care center today for continued care of plantar subfifth metatarsal ulceration of the right foot. He continues to offloading CAM boot and has attempted to remain nonweightbearing with crutches. States that at times he does have to continue to walk in the cam boot to aid in care of his mother. He has continued to change dressings daily with Dakins. Denies constitutional symptoms. Denies further complaints. Objective Data Objective Data Vital Signs: Vital Signs Temp Pulse Resp BP 96.9 F L 84 20 H 150/68 H 10/13/23 10:10/13/23 10:05 10/13/23 10:10/13/23 10:05 Weight: 124.284 kg Body Mass Index (BMI) 35.2 Physical Exam Const alert, oriented x3 and no apparent distress General Appearance: cooperative HEENT normocephalic Eyes General Eye: normal appearance of both eyes Neck General: normal visual inspection Lymph Lymphatic: no lymphadenopathy noted and no lymphedema noted Resp normal respiratory effort Cardio regular rate and regular rhythm Extremity normal capillary refill, no joint enlargement, no calf tenderness and no pedal edema Extremity Narrative: Vascular: DP and PT pulses palpable. CFT less than 4 seconds to the digits. There is mild nonpitting edema about foot and ankle. Dermatological: There is a ulceration noted to the plantar aspect of the right foot subfifth metatarsal base/styloid process secondary to cavovarus deformity of the foot and continued pressure. Ulceration demonstrates granular base with scant serosanguineous drainage and healthy appearing tissue at the wound margins. No purulent drainage, no erythema, no malodor, no lymphangitic streaking, no palpable fluctuance/bogginess noted, no visible abscess formation. Musculoskeletal: Muscle strength 5 of 5 age-appropriate. Prominent styloid process fifth metatarsal base with cavovarus foot deformity. Partial fifth Ray resection right foot. There is decreased range of motion of the ankle joint dorsiflexion decreased range of motion of the first metatarsophalangeal joint without pain or crepitus. Skin no rashes or lesions noted, skin turgor normal and no jaundice Neuro moves all extremities Debridement Note Debridement Note No debridement was completed: No debridement was completed today Post-Debridement Measurements and Additional Note: Post-Debridement Measurements/Treatment - Nurse 1 - General Ulcer Assessment Start: 10/13/23 10:03 Freq: Status: Active Protocol: LC.[email or web address] Activity Type Activity Date Activity User E-sign Co-sign Detail Recorded Client Recorded Date Recorded By Document 10/13/23 10:05 DL [email or web address] 10/13/23 10:12 DL 10/13/23 10:05 - Today's Visit Information Type of service Follow-up Visit (Physician/DATABASE MANAGEMENT SPECIALIST ) Arrival Mode Ambulatory, Crutches Transfer Assistance None Patient Identification Verified (Name & Yes ) Patient Requires Transmission-Based No Precautions Finger Stick Blood Sugar(mg/dl) (if 137 indicated): Blood Sugar Stated by Patient Height and Weight Body Mass Index (BMI) 35.2 BMI Classification Obese Vital Signs Temperature (97.8 F-99.1 F) 96.9 F L Temperature Source Temporal Pulse Rate (60-100) 84 Pulse Location Monitor Respiratory Rate (12-18) 20 H Respiratory rate source Observation Blood Pressure (90/60-120/80) 150/68 H Blood Pressure Mean (mm Hg) 95 Source Monitor History Since Last Visit- (Skip if this is Patient's initial visit) Have you changed medications since your No last visit? Any new allergies or adverse reactions No Had a fall/change in ADL's that may No increase risk of falls Signs or symptoms of abuse and/or No neglect since last visit Have you been in the hospital since your No last visit? Has dressing in place as prescribed Yes Has compression in place as prescribed N/A Has offloadiing in place as prescribed Yes Experienced any changes in pain level or No management Right Footwear Removable Cast Walker/Walking Boot Pain Scale: 0-10 Numeric Is Patient Pain Free? Yes WC - Nurse 1 - General Ulcer Measurement Start: 10/13/23 10:03 Freq: Status: Active Protocol: Activity Type Activity Date Activity User E-sign Co-sign Detail Recorded Client Recorded Date Recorded By Document 10/13/23 10:05 DL [email or web address] 10/13/23 10:12 DL 10/13/23 10:05 Wound Center Nurse 1 #15 RT LAT FT -Current Size (cm) - Length 0.2 -Current Size (cm) - Width 0.2 -Current Size (cm) - Depth 0.2 -Total Square Cm 0.04 -Photo Taken Yes -Maximum Distance #2 (cm) 0.2 -Circular Undermining Yes -Exudate Amt None Present -Wound Margin Thickened -Granulation Amt Small (1-33%) -Granulation Quality [place] -Necrosis Amt Small (1-33%) -Necrotic Tissue Type Adherent Slough -Structure Exposed N/A -Texture (Susana-wound Skin Appearance) Callus,Scarring -Moisture (Susana-wound Skin Appearance) No Abnormality -Color (Susana-wound Skin Appearance) No Abnormality -Temperature (Susana-wound Skin No Abnormality Appearance) (Pt Warm) -Tenderness on Palpation (Susana-wound No Skin Appearance) -Ulcer Cleansing Soap and Water -Foul Odor after Cleansing No -Anesthetic Used 5% Lidocaine Gel WC - Nurse 2 - General Ulcer CM Notes Start: 10/13/23 10:03 Freq: Status: Active Protocol: Activity Type Activity Date Activity User E-sign Co-sign Detail Recorded Client Recorded Date Recorded By Document 10/13/23 10:32 [facility] 10/13/23 10:36 [facility] 10/13/23 10:32 Wound Center Nurse 2 -Wound/Ulcer Outcome Not Healed Pain Scale: 0-10 Numeric Is Patient Pain Free? Yes WC - Nurse 3 - General Ulcer D/C NN Start: 10/13/23 10:03 Freq: Status: Active Protocol: Activity Type Activity Date Activity User E-sign Co-sign Detail Recorded Client Recorded Date Recorded By Document 10/13/23 10:46 DL [email or web address] 10/13/23 10:47 DL 10/13/23 10:46 Wound Care Center Nurse 3 #15 RT LAT FT -Ulcer Cleansing Rinsed/ Irrigated with Saline -Foul Odor after Cleansing No -Primary Dressing Applied Mepilex Border -Mepilex Border 1 Treatment Response Procedure Tolerated Well Pain Scale: 0-10 Numeric Is Patient Pain Free? Yes WC - Visit Discharge Discharge Condition Stable Ambulatory Status Ambulatory, Crutches Transportation Private Auto Assessment/Plan Assessment/Plan (1) Ulcer of right foot with fat layer exposed: CODE(S): L97.512 - Non-pressure chronic ulcer of other part of right foot with fat layer exposed (2) Type 2 diabetes mellitus with diabetic polyneuropathy: CODE(S): E11.42 - Type 2 diabetes mellitus with diabetic polyneuropathy (3) Type 2 diabetes mellitus with foot ulcer: CODE(S): E11.621 - Type 2 diabetes mellitus with foot ulcer; L97.509 - Non-pressure chronic ulcer of other part of unspecified foot with unspecified severity (4) Venous insufficiency: CODE(S): I87.2 - Venous insufficiency (chronic) (peripheral) (5) Leg edema: CODE(S): R60.0 - Localized edema (6) Other specified peripheral vascular diseases: CODE(S): I73.89 - Other specified peripheral vascular diseases PLAN: Plan Patient seen and evaluated Ulceration to the plantar aspect of the right foot underwent debridement as noted in clinical panel above. Ulceration measures 0.1 cm x 0.1 cm x 0.1 cm. No signs of infection. Pdama to the wound base and dressed with dry sterile dressing. He was placed back into his CAM boot with plantar offloading padding and instructed to remain nonweightbearing to the right foot with the assistance of crutches. He is to change dressing daily. Wound demonstrates no change in size vs previous visit. He is progressing towards healed status, however this has continued to be slow. He has been approved for EpiFix as of 08/03/23 until 10/13/23. Patient states that he would have to pay a portion of this deductible towards the graft and he did not wish to proceed forward with applications. Discussed with him if he would allow graft applications he would have already healed. He remains worried about his share of cost. Labs ordered including HgbA1c, patient has still not obtained. This was discussed to get this done. Previous A1c on record from 12/04/2021 was 6.2%. Radiographs obtained 06/14/2023 negative for osteomyelitis. Venous studies performed 06/14/2023 and are negative for DVT. He does have se gmental valvular incompetence noted within the great saphenous veins bilaterally. Accessory saphenous vein in the right mid thigh is incompetent. Accessory saphenous vein in the left mid calf is incompetent. LEAS performed 06/14/2023: LLE?DP artery biphasic, PT artery monophasic; PT and DP PT artery noncompressible. PT artery indices 0.49, left DP indices 0.82, left digital brachial indices 0.74. RLE?right PT artery triphasic. PT and DP noncompressible. Right digital brachial indices 0.47. Interpretation: PVRs diminished at the ankle and digital levels on the left with right undetermined due to noncompressibility of the vasculature at the ankle level on the right. There is evidence of moderate arterial occlusive disease in the lower extremities bilateral. He has been referred to Dr. Harrington and has appointment with him next week. Discussed the importance of continued offloading in CAM boot with plantar offloading padding and to remain nonweightbearing to the right lower extremity with the assistance of crutches to aid in wound healing. Discussed that his foot type with prominent fifth metatarsal base secondary to his foot deformity will continue to create problems with wounds and healing and that he should always remain in diabetic shoe gear with protective offloading inserts. Discussed proper diabetic diet to aid in continued wound healing. Stressed importance of maintaining tight glycemic control to aid in wound healing. Discussed importance of daily foot checks and to never walk barefoot. Discussed socks include barefoot. Discussed adequate protein intake for continued wound healing. Toni supplementation also recommended. Discussed signs and symptoms of infection. Discussed if he notices redness about the wound that spreads on top of the foot or up the leg, if he has any purulent drainage from the wound site, has increasing foul odor to the wound, or if he experiences fever greater than 101 accompanied by nausea, vomiting, fever, chills these are signs of a progressing infection and he should report to the ED for IV antibiotics. He voices understanding of this. The following work up and care recommendations were made: Dressing: Padma and dry sterile dressing, change daily. Wash: Soap and water Tissue growth optimization: Padma Offload: CAM boot to the right foot with plantar offloading padding. He is to remain nonweightbearing with the assistance of crutches to the right foot Vascular: History of vascular disease. DP and PT pulses were palpable with adequate capillary fill time. Do not feel vascular status is impacting healing at this time. Edema: Recommended Tubigrip compression and following wound healing compression stockings 20 to 30 mmHg. Infection: No signs of infection. Patient currently finishing oral antibiotic course Pain: No pain secondary to diabetic peripheral polyneuropathy. May take [id number] Tylenol Extra Strength as needed for discomfort Host factors: DM type II with peripheral polyneuropathy, cavus foot, excessive pressure, obesity I answered all the patient's questions. To return to the wound healing center in 2 weeks or call sooner if the patient has any questions or concerns.
--- NOTE | 2023-10-14 09:00 | WC ---
24 RIGHT LATERAL FOOT
[2023-10-27 10:26] VITALS: BP 144/70; PULSE 88; RESP 18; BMI 35.2
--- NOTE | 2023-10-27 12:40 | PCM.WC.PN ---
History of Present Illness Date of Service: 10/27/23 Chief Complaint: Right Foot Ulcer History of Wound: This 58-year-old male presents to the wound care center as referral by his aquaculture program director Dr. Enciso for plantar right foot ulceration. He has PMHx of bilateral foot wounds, partial fifth ray resection right foot, DM type II with peripheral polyneuropathy, cavovarus deformity right foot, chronic venous insufficiency, lower extremity edema, HTN, obesity. He states he did receive new shoes for [place] and 2 days later on May 04, 2023 states that he had new wound development to the plantar aspect of the fifth metatarsal base of the right foot. He states he feels that shoes were too tight. He does have peripheral polyneuropathy and did not notice they were too tight until wound developed. He did go to urgent care and received 7-day course of doxycycline. He did finish antibiotic course to completion and followed up with his aquaculture program director in office and underwent debridement with Betadine to the wound margin and Aquacel to the wound base. He was dressed and dry sterile dressing and offloading in CAM boot and has remained nonweightbearing with the assistance of crutches. At this time he was urged to go to hospital for further treatment given history of infection and amputation however he did refuse at this time and requested evaluation at the wound care center. He was thus started on Augmentin and Cipro and is currently finishing oral antibiotic course. He states he is continue to remain nonweightbearing and changing dressings daily. He currently denies N/V/F/chills. Denies further complaints. Progress of Wound: 10-27-2023. Mr. Stratton is a transfer of care to de. Previously being managed by Dr. Zeng/podiatry however due to billing concerns he was transferred to de. History at initial presentation as detailed above. He states that there has been significant progress over the last couple of weeks. Has been using a cam boot and crutches to offload. Also taken time off work due to the nature of his job, he has to stand/walk for prolonged hours. History of diabetes mellitus type 2. He had no acute concerns at this time and states that over the last 2 weeks, with dressing changes he has noted no bleeding or drainage. Objective Data Objective Data Vital Signs: Vital Signs Temp Pulse Resp BP O2 Del Method 96.9 F L 88 18 144/70 H Room Air 10/13/23 10:05 10/27/23 10:26 10/27/23 10:26 10/27/23 10:26 10/27/23 10:26 Oxygen Delivery Method Room Air Weight: 274 lb Body Mass Index (BMI) 35.2 Charges/Coding Visit Charges Office Visits / Consults: 19968 OV L3 Est 20min Physical Exam Const alert, oriented x3 and no apparent distress General Appearance: cooperative and comfortable HEENT normocephalic, head/scalp atraumatic and hearing grossly normal bilaterally Eyes EOMs intact bilaterally General Eye: normal appearance of both eyes Neck full ROM and supple General: normal visual inspection Resp normal respiratory effort Effort and Inspection: able to speak in complete sentences Skin Wound Narrative: No open areas or ulceration appreciated on exam. Callus over the plantar aspect of the right lateral foot Neuro oriented x3, CN's II-XII intact bilaterally, moves all extremities and no focal motor deficits Psych mental status grossly normal, thought process normal, cooperative and affect normal Debridement Note Debridement Note Post-Debridement Measurements and Additional Note: Post-Debridement Measurements/Treatment - Nurse 1 - General Ulcer Assessment Start: 10/13/23 10:03 Freq: Status: Active Protocol: LC.EDITH Activity Type Activity Date Activity User E-sign Co-sign Detail Recorded Client Recorded Date Recorded By Document 10/13/23 10:05 DL .[email or web address] 10/13/23 10:12 DL Document 10/27/23 10:26 KW ; 10/27/23 10:31 KW 10/13/23 10/27/23 10:05 10:26 - Today's Visit Information Type of service Follow-up Visit Follow-up Visit (Physician/AUTOMOTIVE ALIGNMENT SPECIALIST (Physician/AUTOMOTIVE ALIGNMENT SPECIALIST ) ) Arrival Mode Ambulatory, Ambulatory, Crutches Crutches Transfer Assistance None Patient Identification Verified (Name & Yes Yes ) Patient Requires Transmission-Based No Precautions Finger Stick Blood Sugar(mg/dl) (if 137 indicated): Blood Sugar Stated by Patient Height and Weight Body Mass Index (BMI) 35.2 35.2 BMI Classification Obese Obese Vital Signs Temperature (97.8 F-99.1 F) 96.9 F L Temperature Source Temporal Pulse Rate (60-100) 84 88 Pulse Location Monitor Monitor Respiratory Rate (12-18) 20 H 18 Respiratory rate source Observation Observation Oxygen Delivery Method Room Air Blood Pressure (90/60-120/80) 150/68 H 144/70 H Blood Pressure Mean (mm Hg) 95 94 Source Monitor Monitor Position Semi-Fowlers Blood Pressure Location Left Arm History Since Last Visit- (Skip if this is Patient's initial visit) Have you changed medications since your No No last visit? Any new allergies or adverse reactions No No Had a fall/change in ADL's that may No No increase risk of falls Signs or symptoms of abuse and/or No No neglect since last visit Have you been in the hospital since your No No last visit? Has dressing in place as prescribed Yes Yes Has compression in place as prescribed N/A Yes Has offloadiing in place as prescribed Yes Yes Experienced any changes in pain level or No No management Left Footwear Regular Shoe Right Footwear Removable Cast Removable Cast Walker/Walking Walker/Walking Boot Boot Pain Scale: 0-10 Numeric Is Patient Pain Free? Yes Yes WC - Nurse 1 - General Ulcer Measurement Start: 10/13/23 10:03 Freq: Status: Active Protocol: Activity Type Activity Date Activity User E-sign Co-sign Detail Recorded Client Recorded Date Recorded By Document 10/13/23 10:05 DL [id number] 10/13/23 10:12 DL Document 10/27/23 10:26 KW ; 10/27/23 10:31 KW 10/13/23 10/27/23 10:05 10:26 Wound Center Nurse 1 #15 RT LAT FT -Current Size (cm) - Length 0.2 1.9 -Current Size (cm) - Width 0.2 0.6 -Current Size (cm) - Depth 0.2 0.1 -Total Square Cm 0.04 1.14 -Photo Taken Yes -Maximum Distance #2 (cm) 0.2 -Circular Undermining Yes -Exudate Amt None Present None Present -Wound Margin Thickened Distinct, Outline Attached -Granulation Amt Small (1-33%) -Granulation Quality [place] -Necrosis Amt Small (1-33%) -Necrotic Tissue Type Adherent Slough -Structure Exposed N/A -Texture (Susana-wound Skin Appearance) Callus,Scarring Assessed,Callus -Moisture (Susana-wound Skin Appearance) No Abnormality Assessed,Dry/ Scaly -Color (Susana-wound Skin Appearance) No Abnormality Assessed -Temperature (Susana-wound Skin No Abnormality No Abnormality Appearance) (Pt Warm) (Pt Warm) -Tenderness on Palpation (Susana-wound No No Skin Appearance) -Ulcer Cleansing Soap and Water Rinsed/ Irrigated with Saline -Foul Odor after Cleansing No -Anesthetic Used 5% Lidocaine 5% Lidocaine Gel Gel,Cetacaine Right Calf (cm) 41 Right Ankle (cm) 24 WC - Nurse 2 - General Ulcer CM Notes Start: 10/13/23 10:03 Freq: Status: Active Protocol: Activity Type Activity Date Activity User E-sign Co-sign Detail Recorded Client Recorded Date Recorded By Document 10/13/23 10:32 [facility] 10/13/23 10:36 BMF Edit Result 10/13/23 10:32 BMF (1) [id number] 10/13/23 15:29 BMF Document 10/27/23 11:03 GM 10/27/23 11:04 GM Edit Result 10/27/23 11:03 GM (2) 10/27/23 11:14 GM (1) #15 RT LAT FT - Post Debridement (cm) - Length => 0.1 - Post Debridement (cm) - Width => 0.1 - Post Debridement (cm) - Depth => 0.1 - Total Square (Post) (cm) => 0.01 - Area of Debridement (cm) - Length => 0.1 - Area of Debridement (cm) - Width => 0.1 - Total Square (Area) (cm) => 0.01 (2) #15 RT LAT FT - Correct Procedure Yes => - Procedure Performed Yes => - Type of Procedure Debridement => - Clinical Debridement Subcutaneous => - Tissue Removed Subcutaneous => - Wound/Ulcer Outcome Not Healed => - Ulcer Cleansing Rinsed/Irrigated => with Saline => - Foul Odor after Cleansing No => - Bioengineered Tissue No => - Bleeding Controlled with Pressure => - Treatment Response Procedure => Tolerated Well => - Debridement - Subq, 1st 20sq cm Yes => - Wound Comment(s) => area is callused, callus was scraped. no open area 10/13/23 10/27/23 10:32 11:03 Wound Center Nurse 2 #15 RT LAT FT -Time 11:03 -Correct Patient Yes -Correct Side, Site, Position Yes -Post Debridement (cm) - Length 0.1 -Post Debridement (cm) - Width 0.1 -Post Debridement (cm) - Depth 0.1 -Total Square (Post) (cm) 0.01 -Area of Debridement (cm) - Length 0.1 -Area of Debridement (cm) - Width 0.1 -Total Square (Area) (cm) 0.01 -Tunneling No -Undermining/Tunneling No -Circular Undermining No -Wound/Ulcer Outcome Not Healed -Wound Comment(s) area is callused, callus was scraped. no open area Pain Scale: 0-10 Numeric Is Patient Pain Free? Yes Yes - Nurse 3 - General Ulcer D/C NN Start: 10/13/23 10:03 Freq: Status: Active Protocol: Activity Type Activity Date Activity User E-sign Co-sign Detail Recorded Client Recorded Date Recorded By Document 10/13/23 10:46 DL [id number] 10/13/23 10:47 DL Document 10/27/23 11:25 GM 10/27/23 11:26 GM 10/13/23 10/27/23 10:46 11:25 Wound Care Center Nurse 3 #15 RT LAT FT -Ulcer Cleansing Rinsed/ Not Cleansed Irrigated with Saline -Foul Odor after Cleansing No -Primary Dressing Applied Mepilex Border -Primary Dressing Covered/Secured with Dry Gauze, Secured with Tape -Mepilex Border 1 Treatment Response Procedure Tolerated Well Pain Scale: 0-10 Numeric Is Patient Pain Free? Yes Yes Teaching: Wound Center *Wound/Skin Impairment -Person Taught Patient -Teaching Method Discussion -Response to teaching Verbalize understanding Discharge Instructions -Person Taught Patient -Teaching Method Discussion -Response to teaching Verbalize understanding Eliminating Foot Pressure -Person Taught Patient -Teaching Method Discussion -Response to teaching Verbalize understanding WC - Visit Discharge Discharge Condition Stable Stable Ambulatory Status Ambulatory, Ambulatory, Crutches Crutches Transportation Private Auto Private Auto Clinical Summary of Care Provided Yes Assessment/Plan Assessment/Plan (1) Type 2 diabetes mellitus with foot ulcer: CODE(S): E11.621 - Type 2 diabetes mellitus with foot ulcer; L97.509 - Non-pressure chronic ulcer of other part of unspecified foot with unspecified severity (2) Type 2 diabetes mellitus with diabetic polyneuropathy: CODE(S): E11.42 - Type 2 diabetes mellitus with diabetic polyneuropathy (3) Cavus deformity of right foot: CODE(S): Q66.71 - Congenital pes cavus, right foot PLAN: Plan Minimal callus debrided and underlying this, no open area appreciated on exam. This is in keeping with patient's account of no blood or drainage over the last 2 weeks. Cavus deformity of right foot predisposing him to recurrent ulcerations. Very lengthy discussion had with patient, at this time, there is no open area and so no further care at the wound center is necessary however, due to his cavus deformity and diabetes mellitus he is at risk for recurrent ulcerations. Continued offloading very strongly recommended. 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 He had questions regarding going back to work again, I told him that he would have to address this with his aquaculture program director or primary care physician. If he does not have an appropriate form of offloading, prolonged standing which he has to do at work would lead to high risk for recurrence/breakdown. He has been off work for the last couple of weeks. His primary aquaculture program director is Dr. Enciso at the [facility]. He was advised to call with any further questions or concerns. At this time with no open wounds/ulceration, he is discharged from the wound clinic. This note was generated with Visible [employer] dictation software. It may contain incorrect words, spelling, and punctuation that were not noted in checking the note before signing.
== END 2023-10-28 11:53 | disposition home or self-care (01) ==
LOC: WC 10:00
PROVIDERS: PCP Student in an Organized Health Care Education/Training Program; Referring Provider Podiatrist Foot & Ankle Surgery; Visit Provider Student in an Organized Health Care Education/Training Program
DX: E11.621 Type 2 diabetes mellitus with foot ulcer (principal); L97.412 Non-pressure chronic ulcer of right heel and midfoot with fat layer exposed; E11.42 Type 2 diabetes mellitus with diabetic polyneuropathy; Z79.4 Long term (current) use of insulin; E11.51 Type 2 diabetes mellitus with diabetic peripheral angiopathy without gangrene; Q66.11 Congenital talipes calcaneovarus, right foot; I10 Essential (primary) hypertension; R60.0 Localized edema; E66.9 Obesity, unspecified; Z68.35 Body mass index [BMI] 35.0-35.9, adult; Z79.82 Long term (current) use of aspirin; Z79.899 Other long term (current) drug therapy
CPT/HCPCS: 11042; 99213; G0463

== ENCOUNTER 2024-03-15 12:09 | Inpatient (IN) | payer MEDICAID, SELFPAY ==
[2024-03-15] VITALS (9 sets, daily range): BP systolic 121–166; BP diastolic 66–114; PULSE 106–125; RESP 18–19; TEMP 36.6–37.2; O2SAT 95–100; BMI 35.4; BMI 35.2
--- NOTE | 2024-03-15 12:29 | ED.VIS.CHEST ---
HPI History of Present Illness Chief Complaint: Chest Pain [facility] Medical History Cavus deformity of right foot Chronic neck and back pain Limb weakness unexplained bruising Knee pain Diarrhea Hay fever Diabetes Arthritis Hypertension Incisional hernia, with obstruction, without gangrene Obesity Hypertension History of seizures as a child Type II diabetes mellitus Home Medications ?Medication ?Instructions ?Recorded ?Last Taken ?Type insulin detemir U-100 100 unit/mL 32 units subcut QHS 10/01/14 Unknown History (3 mL) subcutaneous pen insulin lispro 100 unit/mL 8 unit SQ PRN PRN DIABETES 10/01/14 Unknown History subcutaneous pen nifedipine 60 mg tablet,extended 90 mg PO DAILY 10/01/14 05/06/17 07:00 History release ramipril 10 mg capsule 10 mg PO DAILY 10/01/14 05/06/17 07:00 History aspirin 81 mg tablet,delayed 81 mg PO DAILY 04/29/17 Unknown History release atorvastatin 10 mg tablet 10 mg PO DAILY 04/29/17 Unknown History diphenhydramine HCl 25 mg tablet 25 mg PO PRN PRN ALLERGY 04/29/17 Unknown History dulaglutide 0.75 mg/0.5 mL 0.75 mg SQ ENCINAS 04/29/17 Unknown History subcutaneous pen injector Allergy/AdvReac Type Severity Reaction Status Date / Time acetaminophen (From Percocet) AdvReac Nausea Verified 07/30/20 09:39 oxycodone (From Percocet) AdvReac Nausea Verified 07/30/20 09:39 Surgical History H/O ventral hernia repair S/P ORIF (open reduction internal fixation) fracture Social History (Updated 03/15/24 @ 12:23 by Karlie Robbins) housing: apartment Smoking Status: Never smoker alcohol intake: current alcohol intake frequency: holidays/special occasions only EXAM Physical Exam Const Vital Signs: 03/15/24 12:10 03/15/24 12:23 03/15/24 12:36 Temperature 98.2 F Temperature Source Oral Pulse Rate 110 H Respiratory Rate 19 H Respiratory Effort Short of Breath Blood Pressure 166/76 H Blood Pressure Mean 106 Pulse Ox 98 100 Oxygen Delivery Method Room Air Room Air 03/15/24 13:15 03/15/24 13:45 Temperature 97.9 F Temperature Source Oral Pulse Rate 106 H 108 H Respiratory Rate 18 18 Respiratory Effort Blood Pressure 121/85 H 130/94 H Blood Pressure Mean 97 106 Pulse Ox 100 99 Oxygen Delivery Method [facility] Narrative Medical decision making narrative: HISTORY OF PRESENT ILLNESS: 58-year-old male presents with concern for chest pain. He states he is having heartburn. He further states he has not been feeling well. He denies any sick contacts. He notes he began having dry heaves and nausea 3 to 4 days ago. This then turned into vomiting. Nonbloody nonbilious. Notes after which she developed headache and heartburn especially after vomiting. He denies any pain in his chest at this time. Patient denies sudden onset or thunderclap headache, denies maximal intensity within 1 minute, vomiting, neck pain, stiffness, changes in vision, fever, history malignancy, syncope, or seizures associated with headache. The patient denies recent surgery in the last 4 weeks or immobilization in the last 3 days, denies previous diagnosis of DVT or PE, hemoptysis, unilateral leg swelling or malignancy with treatment the last 6 months or palliative. No estrogen use noted. Patient denies sudden onset of pain, no tearing sensation, no migratory symptoms, no new numbness, weakness or loss of sensation. Patient denies family history or personal history of Connective tissue disorders (Marfan's Syndrome, Amrik Danlos etc) REVIEW OF SYSTEMS: Pertinent positives: Chest pain, nausea vomit Pertinent negatives: Abdominal pain, focal weakness, syncope PHYSICAL EXAM: Nursing triage notes reviewed, Vital signs reviewed Constitutional: please see [facility] HENT: MMM Eyes: Pupils equal round and reactive to light, Extraocular muscles intact Neck: No stridor, no JVD, full neck ROM Lungs: Clear to auscultation, No wheezing or rales. No increased work of breathing, no conversational dyspnea, no accessory muscle use, no nasal flaring. No respiratory distress noted Heart: Regular rate and rhythm, No murmurs, No rubs and No gallops, 2+ distal pulses (radial, femoral, posterior tibial) in all extremities Abdomen: Soft, there is no tenderness, rigidity, rebound or guarding, no obvious peritoneal signs, no palpable pulsatile abdominal masses, no auscultated abdominal bruit : No CVAT Extremities: No edema Neuro: No focal neurological deficits, cranial nerves II through XII intact, 5/5 strength in all extremities. Intact sensation to light touch in all extremities, 2+ reflexes bilateral patella tendons. Normal gait. No ataxia. Skin: No rash or lesions noted MEDICAL DECISION MAKING: Chief Complaint: Chest pain External records reviewed: Factors affecting care: Type 2 diabetes, HTN Social determinants of health: denies illicit drug use or alcohol abuse History obtained from others: none Consults: none MDM Narrative: The patient was initially tachycardic rate 110, hypertensive with a blood pressure 166/76, afebrile and nontoxic-appearing. There are no focal cardiopulmonary abnormalities on initial exam. No stigmata of VTE. No pulse deficits or focal neurologic deficits noted. I considered the following differential diagnosis: ACS, anemia, pneumothorax, pneumonia, esophageal perforation, PE, aortic dissection All I considered PE and aortic dissection as potential etiologies given the patient's report of heartburn (chest pain), tachycardia the patient otherwise had a low risk Wells score. I have a low suspicion for PE. I also considered aortic dissection however the patient has no pulse deficits, no focal neurologic deficits, do have a concerning history or clinical presentation for aortic dissection. I considered obtaining a CTA of the chest or CTA of the chest abdomen pelvis however without these tests were not indicated at this time. History is more concerning for esophageal pathology including esophagitis, Boerhaave syndrome or Megan-Gonzalez tear. I obtained a broad lab and imaging workup to further elucidate the etiology of the patient's complaints I treated the patient with IV fluids, Zofran, Pepcid ALL IMAGES (IF OBTAINED) HAVE BEEN PERSONALLY REVIEWED AND INTERPRETED BY MYSELF. EKG with sinus tachycardia rate of 110, left axis deviation, normal intervals, no STEMI. No signs of right heart strain. CBC showed evidence of systemic elevation with elevated white blood cell count of 16.5, is also hemoconcentration consistent with dehydration, there is no thrombocytopenia BMP showed no evidence of significant electrolyte abnormalities but did show signs of metabolic acidosis with a bicarb of 19, there is no anion gap there was acute kidney injury High-sensitivity troponin is negative, no evidence of myocardial ischemia I have personally reviewed the patient's chest x-ray. Chest x-ray is unremarkable for pulmonary edema, pneumothorax, pneumonia or focal cardiopulmonary abnormality. On reassessment patient's blood pressure improved 130/94, heart rate slightly improved to 108. He continued to have ongoing nausea and vomiting despite Zofran and Pepcid and fluids. Given elevated white blood cell count ongoing nausea vomiting did obtain a CT scan abdomen pelvis to rule out any intra-abdominal cause of patient's symptoms. CT scan on pelvis showed nonsevere perinephric stranding, no evidence of obvious acute pathology in the abdomen or pelvis such as obstruction or perforation or acute surgical pathology Once patient returned from CT continue to be tachycardic continue to have ongoing nausea and vomiting despite 2 antiemetics. I did write for The patient and/or family, caregivers express understanding. The patient and/or family, caregivers agrees with the plan. Shared decision making: I will have a discussion with the patient and or visitors regarding risk/benefits of further testing or admission. They will be made aware of of the risk/benefits inherent in this decision they will be given the opportunity to voice understanding. Total critical care time today provided was at least 0 minutes. This excludes separately billable procedures. Critical care time (if documented) is secondary to the patient having high probability of clinically significant/life threatening deterioration in the patient's condition which required my urgent intervention. Impression: 1. Chest pain 2. History of hypertension 3. History of type 2 diabetes 4. Dehydration 5. ROSALIO 6. Nausea and vomiting Dispo: Pending CT scan, troponin This note was generated with bSafe dictation software. It may contain incorrect words, spelling, and punctuation that were not noted in review of the chart prior to signing. Lab Data Labs: Laboratory Results - last 24 hr 03/15/24 12:12 WBC 16.5 H RBC 5.84 Hgb 16.8 H Hct 50.3 MCV 86.1 MCH 28.8 MCHC 33.4 RDW Std Deviation 40.0 RDW Coeff of Faheem 12.9 Plt Count 242 MPV 9.9 Immature Gran % (Auto) 0.500 Neut % (Auto) 84.5 H Lymph % (Auto) 7.9 L [place] % (Auto) 6.2 Eos % (Auto) 0.5 Baso % (Auto) 0.4 Absolute Neuts (auto) 13.9 H Absolute Lymphs (auto) 1.30 Nucleated RBC % 0 Sodium 139 Potassium 4.1 Chloride 109 H Carbon Dioxide 19.0 L Anion Gap 11 BUN 34 H Creatinine 1.92 H Estim Creat Clear Calc 60.40 Est GFR (MDRD) Af Amer 47 L Est GFR (MDRD) Non-Af 39 L BUN/Creatinine Ratio 17.7 Glucose 151 H Calcium 10.1 Troponin I High Sens 6 Radiography Diagnostic Testing: Clinical Impression(s) from Imaging Studies Chest X-Ray 03/15/24 12:55 IMPRESSION: Normal x-ray examination of the chest. Electronically Signed: Rishabh Delgado MD at 13:40 EST , Abdomen/Pelvis CT 03/15/24 13:43 IMPRESSION: Nonspecific bilateral perinephric stranding and nonobstructive bilateral intrarenal calculi. Electronically Signed: Rishabh Delgado MD at 14:25 EST , Discharge Plan Triage Chief Complaint: Chest Pain ED Provider: Hugh Guerrero Dx/Rx/DC Orders Prescriptions: No Action ramipril 10 MG capsule 10 mg PO DAILY Patient Comments: BLOOD PRESSURE insulin lispro 100 UNIT/ML insulin pen 8 unit SQ PRN PRN (Reason: DIABETES) Patient Comments: SLIDING SCALE insulin detemir U-100 100 UNITS/ML insulin pen 32 units SC QHS Patient Comments: lowers blood sugar nifedipine 60 MG tablet extended release 90 mg PO DAILY Patient Comments: Heart/blood pressure atorvastatin 10 MG tablet 10 mg PO DAILY aspirin 81 MG tablet,delayed release (DR/EC) 81 mg PO DAILY diphenhydramine HCl 25 MG tablet 25 mg PO PRN PRN (Reason: ALLERGY) dulaglutide 0.75 MG/0.5 ML pen injector 0.75 mg SQ ENCINAS Primary Care Provider: Gerald Tee Referrals: Gerald Tee DO [Primary Care Provider] - Print Language: Albanian
--- NOTE | 2024-03-15 12:36 | EKG12_ITS ---
Test Reason : Blood Pressure : */* mmHG Vent. Rate : 110 BPM Atrial Rate : 110 BPM P-R Int : 198 ms QRS Dur : 82 ms QT Int : 332 ms P-R-T Axes : 59 -55 70 degrees QTcB Int : 449 ms Sinus tachycardia Possible Left atrial enlargement Left anterior fascicular block Inferior infarct (cited on or before 07-Jul-2015) Abnormal ECG Confirmed by MIGUELINA MENA, GARETT ([id number]), online editor KATHIA MCPHERSON ([id number]) on 03/19/2024 9:54:24 AM Referred By: Confirmed By: GARETT MCINTYRE MD
[2024-03-15] MEDS: Famotidine 200 MG/20 ML MDV 20 MG in 0.9% Normal Saline (Pres. free 8 ML 300 MG IV (12:50)
[2024-03-15] MEDS: 0.9% Normal Saline (1000mL) 1,000 ML 999 ML IV (12:50)
[2024-03-15] MEDS: Ondansetron 4 MG/2 ML Vial IV (12:50)
--- NOTE | 2024-03-15 12:55 | RAD_ITS ---
STUDY: X-RAY CHEST REASON FOR EXAM: Male, 58 years old. Chest pain TECHNIQUE: Single AP portable view of the chest. COMPARISON: Comparison is made with prior study January 06, 2016. FINDINGS: EKG electrodes are seen. The lungs are clear and expanded. Scattered calcified granulomas. No acute abnormality is seen. There is no demonstrated pleural abnormality. Normal size heart. Normal mediastinum and ba. Normal visualized pulmonary arteries. Normal visualized aortic arch and descending thoracic aorta. Normal visualized thoracic spine. Normal visualized ribs, clavicles, and shoulders. There is no demonstrated abnormality of the visualized soft tissue structures of the upper abdomen. RAD/Chest 1 View (Portable) IMPRESSION: Normal x-ray examination of the chest. Electronically Signed: Rishabh Delgado MD at 13:40 EST ,
[2024-03-15 13:01] LABS: Absolute Neutrophil Count 13.9 X10^3/uL (2.0-7.7); Basophil# 0.07 X10^3/uL; Basophil% 0.4 % (0-1); Eosinophil# 0.09 X10^3/uL; Eosinophils% 0.5 % (0-5); Hematocrit 50.3 % (40-54); Hemoglobin 16.8 g/dL (13.0-16.5); Lymphocyte % 7.9 % (19-41); Mean Corp Hgb Conc 33.4 g/dL (32-36); Mean Corpuscular Hgb 28.8 pg (27.0-32.0); Mean Corpuscular Volume 86.1 fL (80-94); Mean Platelet Vol. 9.9 fl (6.2-12.0); Monocyte# 1.02 X10^3/uL; Monocyte% 6.2 % (0-10); NRBC Flagged by Analyzer 0 % (0-5); Neutrophil # 13.91 X10^3/uL (2.7-7.7); Neutrophil % 84.5 % (47-70); Platelet Count 242 K/mm3 (150-450); RBC Distribution Width CV 12.9 % (11.6-14.6); Red Blood Count 5.84 M/mm3 (4.6-6.2); White Blood Count 16.5 K/mm3 (4.4-11.0)
[2024-03-15 13:09] LABS: Anion Gap 11 (5-15); BUN 34 mg/dL (7-18); BUN/Creat Ratio 17.7 RATIO (10-20); Calcium,Total 10.1 mg/dL (8.5-10.1); Chloride 109 mmol/L (98-107); Creatinine, Serum 1.92 mg/dL (0.70-1.30); EST Glomerular Filtration Rate 39 mL/min (>60); Est Glom Filt Rate - Afr Amer 47 mL/min (>60); Glucose 151 mg/dL (74-106); Potassium 4.1 mmol/L (3.5-5.1); Sodium Level 139 mmol/L (136-145); Troponin-I HS (w/2H Reflex) 6 pg/mL (3.0-78.0)
--- NOTE | 2024-03-15 13:43 | CT_ITS ---
STUDY: CT ABDOMEN AND PELVIS WITHOUT CONTRAST REASON FOR EXAM: Male, 58 years old. n/v abdominal pain x2 days RADIATION DOSAGE (If Supplied By Facility): CTDIvol = ( 22.17 ) mGy, DLP = ( 1240.60 ) mGycm TECHNIQUE: Transaxial images were obtained from the dome of the diaphragm to the symphysis pubis without oral contrast, and without intravenous contrast. Sagittal and coronal images were reconstructed. Individualized dose optimization techniques were used for this CT. COMPARISON: None. FINDINGS: The visualized lung bases are unremarkable. Coronary artery calcification. Normal liver. The patient is status post cholecystectomy. Normal spleen. Normal pancreas. Normal bilateral adrenal glands. Nonspecific mild degree of bilateral perinephric stranding. Small bilateral nonobstructive intrarenal calculi. There is a small hiatal hernia. Normal small intestine. Normal colon. The appendix is visualized and appears normal. There is diffuse atherosclerotic calcification of the abdominal aorta, without a demonstrated aneurysm. Normal inferior vena cava. Normal retroperitoneum. 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 Calcified bilateral vas deferens. Normal abdominal wall. There are diffuse degenerative changes of the visualized lumbar spine. CT/Abdomen/Pelvis without Cont IMPRESSION: Nonspecific bilateral perinephric stranding and nonobstructive bilateral intrarenal calculi. Electronically Signed: Rishabh Delgado MD at 14:25 EST ,
[2024-03-15] MEDS: Metoclopramide 10 MG/2 ML Vial 5 MG IV (14:15)
[2024-03-15] MEDS: Haloperidol Lactate 5 MG/ML Vial 2 MG IV (14:48)
[2024-03-15 14:49] LABS: Reflex Troponin-HS? (from REC) Y
[2024-03-15] MEDS: 0.9% Normal Saline (500mL Bag) 500 ML 15 ML IV (15:00)
--- NOTE | 2024-03-15 15:18 | HP.PCM.HOS_ITS ---
HPI - General General Date of Admission: 03/15/24 Date of Service: 03/15/24 Chief Complaint: intractable n/v HPI Narrative SHERRI CROWE, is a 58-year-old male history of diabetes and hypertension who presented [facility] ED 03/15/2024 due to concerns for chest burning with nausea and vomiting. He reported he has not been feeling well and has been having heartburn as well as nausea and dry heaves for 3 to 4 days that then turned into vomiting.? In the ED patient had BUN of 34 and creatinine of 1.92 and was suspected to have ROSALIO. CT of the abdomen showed some mild perinephric stranding but otherwise fairly unremarkable. Patient received Zofran, Reglan, Haldol, famotidine, IV fluids and was still having significant nausea and inability to tolerate p.o. so hospitalist contacted for admission. Patient evaluated at bedside. He reports he has had intermittent nausea and vomiting and heartburn over the past 3 to 4 days that would completely resolve, today was coming and going again however has now been persistent with the heartburn still coming and going. He reports he feels a little bit of chills right now and has had a bit of a headache. Also has had some nasal congestion for couple of days. Denies any other kind of abdominal pain but did report he initially thought he had pancreatitis as this is how he felt when he had that previously. Denies any history of gastroparesis, patient without any diarrhea and reports his bowel movements have been normal. Does have ulcer on bottom of right foot for which he follows regularly and denies any current infection or abnormality, denies any other wounds or nidus of infection. Patient denies any urinary symptoms. [facility] Medical History (Updated 03/15/24 @ 15:[address] Leena Mena MD) Arthritis Cavus deformity of right foot Chronic neck and back pain Diabetes Diarrhea Hay fever History of seizures as a child Hypertension Hypertension Incisional hernia, with obstruction, without gangrene Knee pain Limb weakness Obesity Type II diabetes mellitus unexplained bruising Home Medications ?Medication ?Instructions ?Recorded ?Last Taken ?Type insulin detemir U-100 100 unit/mL 32 units subcut QHS 10/01/14 Unknown History (3 mL) subcutaneous pen insulin lispro 100 unit/mL 8 unit SQ PRN PRN DIABETES 10/01/14 Unknown History subcutaneous pen nifedipine 60 mg tablet,extended 90 mg PO DAILY 10/01/14 05/06/17 07:00 History release ramipril 10 mg capsule 10 mg PO DAILY 10/01/14 05/06/17 07:00 History aspirin 81 mg tablet,delayed 81 mg PO DAILY 04/29/17 Unknown History release atorvastatin 10 mg tablet 10 mg PO DAILY 04/29/17 Unknown History diphenhydramine HCl 25 mg tablet 25 mg PO PRN PRN ALLERGY 04/29/17 Unknown History dulaglutide 0.75 mg/0.5 mL 0.75 mg SQ ENCINAS 04/29/17 Unknown History subcutaneous pen injector atorvastatin 40 mg tablet 40 mg PO DAILY CHOLESTEROL 03/15/24 Unknown History dulaglutide 4.5 mg/0.5 mL 4.5 mg subcut ENCINAS DIABETES 03/15/24 Unknown History subcutaneous pen injector (Trulicity) insulin aspart U-100 100 unit/mL subcut 03/15/24 Unknown History (3 mL) subcutaneous pen insulin glargine 100 unit/mL (3 35 unit subcut QHS DIABETES 03/15/24 Unknown History mL) subcutaneous pen (Lantus Solostar U-100 Insulin) nifedipine 90 mg tablet,extended 90 mg PO DAILY HEART/BLOOD PRESSURE 03/15/24 Unknown History release 24 hr Allergy/AdvReac Type Severity Reaction Status Date / Time acetaminophen (From Percocet) AdvReac Nausea Verified 07/30/20 09:39 oxycodone (From Percocet) AdvReac Nausea Verified 07/30/20 09:39 Surgical History H/O ventral hernia repair S/P ORIF (open reduction internal fixation) fracture Social History (Updated 03/15/24 @ 12:23 by Karlie Robbins) housing: apartment Smoking Status: Never smoker alcohol intake: current alcohol intake frequency: holidays/special occasions only ROS ROS Narrative General: feels like he has had some chills HENT: some nasal congestion, intermittent headache, denies sore throat EYES: Denies changes in vision Resp: Denies cough, denies shortness of breath Cardiac: Intermittent chest burning GI: Denies any pain outside of the epigastric/chest burning, denies changes in bowel, persistent nausea : Denies changes in urination Extremity: Denies swelling MSK: Some generalized weakness Neuro: Denies any numbness or tingling at time of exam Heme: Denies any bleeding or bruising Skin: Denies rashes, has ulcer on right foot which is not new Psychiatric: No complaints voiced Vital Signs Vital Signs Vital Signs: 03/15/24 12:10 03/15/24 12:23 03/15/24 12:36 Temperature 98.2 F Temperature Source Oral Pulse Rate 110 H Respiratory Rate 19 H Respiratory Effort Short of Breath Blood Pressure 166/76 H Blood Pressure Mean 106 Pulse Ox 98 100 Oxygen Delivery Method Room Air Room Air 03/15/24 13:15 03/15/24 13:45 03/15/24 15:00 Temperature 97.9 F 97.9 F Temperature Source Oral Oral Pulse Rate 106 H 108 H 115 H Respiratory Rate 18 18 19 H Respiratory Effort Blood Pressure 121/85 H 130/94 H 152/114 H Blood Pressure Mean 97 106 126 Pulse Ox 100 99 98 Oxygen Delivery Method Room Air Weight Weight: 125.2 kg Body Mass Index (BMI) 35.4 Physical Exam Narrative General: Alert, room is: Patient having some shakes HEENT: Atraumatic, normocephalic Eyes: Anicteric, normal conjunctiva, extraocular movements grossly intact Neck: Supple Respiratory: Clear to auscultation bilaterally, normal respiratory effort Cardiovascular: Sinus tachycardia GI: Soft, nontender, nondistended Extremities: No edema Musculoskeletal: Moving all extremities Neuro: No overt focal neurological deficits Skin: No rashes appreciated, patient with right foot wrapped without drainage on bandage Psych: Cooperative Results Lab / Micro Data 03/15/24 12:12 03/15/24 12:12 Labs: Laboratory Results - last 24 hr 03/15/24 12:12: WBC 16.5 H, RBC 5.84, Hgb 16.8 H, Hct 50.3, MCV 86.1, MCH 28.8, MCHC 33.4, RDW Std Deviation 40.0, RDW Coeff of Faheem 12.9, Plt Count 242, MPV 9.9, Immature Gran % (Auto) 0.500, Neut % (Auto) 84.5 H, Lymph % (Auto) 7.9 L, [place] % (Auto) 6.2, Eos % (Auto) 0.5, Baso % (Auto) 0.4, Absolute Neuts (auto) 13.9 H, Absolute Lymphs (auto) 1.30, Nucleated RBC % 0, Sodium 139, Potassium 4.1, Chloride 109 H, Carbon Dioxide 19.0 L, Anion Gap 11, BUN 34 H, Creatinine 1.92 H, Estim Creat Clear Calc 60.40, Est GFR (MDRD) Af Amer 47 L, Est GFR (MDRD) Non-Af 39 L, BUN/Creatinine Ratio 17.7, Glucose 151 H, Calcium 10.1, Troponin I High Sens 6 Imaging Radiology Impression Chest X-Ray 03/15/24 12:55 IMPRESSION: Normal x-ray examination of the chest. Electronically Signed: Rishabh Delgado MD at 13:40 EST , Abdomen/Pelvis CT 03/15/24 13:43 IMPRESSION: Nonspecific bilateral perinephric stranding and nonobstructive bilateral intrarenal calculi. Electronically Signed: Rishabh Delgado MD at 14:25 EST , Assessment & Plan Assessment/Plan (1) Nausea & vomiting: PLAN: Plan #Intractable nausea and vomiting -Imaging: CT abdomen pelvis with nonspecific bilateral perinephric stranding but no other acute abnormalities demonstrated -UA and urine culture ordered -IVF -CLD, advance as tolerated -Antiemetics -Supportive care -UDS ordered -Lipase and hepatic panel ordered -With patient's intermittent burning in his chest will also start IV PPI, trops negative x2 #Leukocytosis and perinephric stranding -Patient with white blood cell count of 16.5 and nonspecific bilateral perinephric stranding -UA and urine culture ordered -Also ordered blood culture -Elevated white blood cell count could be reactive however given perinephric stranding Rocephin started empirically while awaiting further results -No other active nidus of infection identified so suspect urinary source at this time -Will check lactic acid # Suspected ROSALIO due to nausea and vomiting -Patient with BUN of 34 creatinine 1.92, no values since 2019 so unclear if there is a component of CKD but patient has had poor p.o. intake with nausea and vomiting so suspect that this is ROSALIO, IVF, repeat in a.m. -Hold ramipril #Type 2 diabetes mellitus -Glucose checks and sliding scale insulin -Given patient's significant nausea and vomiting with difficulty taking p.o. hold long-acting insulin and continue only sliding scale insulin -Restart long-acting insulin as p.o. improves and glucoses increase #R diabetic foot ulcer -Evaluated by nurse in ED, wrapped w/ no drainage at this time -Being monitored on outpt basis and pt denies any recent concerns -Wound care c/s #Hypertension -Holding nifedipine and ramipril while acutely ill, restart as able #DVT ppx: Heparin subcu Leena Mena MD Charges/Coding Visit Charges Inpatient E&M: 44680 Init Hosp L2
[2024-03-15 15:45] LABS: Troponin-I HS 6 pg/mL (3.0-78.0)
[2024-03-15 15:59] LABS: Bacteria 0 SEEN /hpf (None Seen); Red Blood Cells-Urine 0 SEEN /hpf (0-5); Squamous Epithelial Cells - UA 0 SEEN /hpf (0-5)
[2024-03-15] MEDS: Ceftriaxone 1 GM/50 ML BAG IV (16:00)
[2024-03-15 16:07] LABS: Color, Urine Yellow (Yellow); Glucose, Dipstick 250 mg/dl (Normal); Ketone-Dipstick 50 mg/dl (Negative); Leukocyte Esterase-Dipstick 25 /ul (Negative); Nitrite-Dipstick Negative (Negative); Occult Blood-Urine Negative /ul (Negative); Protein-Dipstick 30 mg/dl (Negative); Urine Bilirubin Dipstick Negative (Negative); Urine Clarity Clear (Clear); Urine Urobilinogen Normal (Normal)
[2024-03-15 16:11] LABS: AST(SGOT) 18 U/L (15-37); Alanine Aminotransfer ALT/SGPT 27 U/L (16-61); Alkaline Phosphatase 118 U/L (45-117); Bilirubin, Direct 0.68 mg/dL (0.00-0.30); Lipase 27 U/L (13-75)
[2024-03-15 16:19] LABS: Amphetamine Urine VISTA NEGATIVE (<1000 ng/mL); Barbiturate Urine VISTA NEGATIVE (< 200 ng/mL); Benzodiazepine Urine VISTA NEGATIVE (< 200 ng/mL); Cocaine Urine VISTA NEGATIVE (< 300 ng/mL); Ecstacy Urine VISTA NEGATIVE (< 500 ng/mL); Methadone Urine VISTA NEGATIVE (< 300 ng/mL); PCP Urine VISTA NEGATIVE (< 25 ng/mL); THC Urine VISTA NEGATIVE (< 50 ng/mL); Vista UDS pH Range 4
[2024-03-15 16:42] LABS: Mucous, Urine 1+ /hpf (<or=2+); White Blood Cells 0-5 SEEN /hpf (0-5)
[2024-03-15 16:43] LABS: Lactic Acid 2.6 mmol/L (0.4-1.9)
[2024-03-15] MEDS: 0.9% Saline Lock 10 ML Syringe IV ×2 (17:03→17:29)
--- NOTE | 2024-03-15 17:07 | EX.PCM.CON.G ---
HPI Consult Data Date of Consult: 03/15/24 HPI Narrative Reason for Consultation: Abdominal pain with nausea vomiting HPI Narrative: SHERRI CROWE, is [id number] male history of diabetes and hypertension who presented [facility] ED 03/15/2024 due to concerns for chest burning with nausea and vomiting. He reported he has not been feeling well and has been having heartburn as well as nausea and dry heaves for 3 to 4 days that then turned into vomiting.? In the ED patient had BUN of 34 and creatinine of 1.92 and was suspected to have ROSALIO. CT of the abdomen showed some mild perinephric stranding but otherwise fairly unremarkable. Patient received Zofran, Reglan, Haldol, famotidine, IV fluids and was still having significant nausea and inability to tolerate p.o. so hospitalist contacted for admission. Patient evaluated at bedside. He reports he has had intermittent nausea and vomiting and heartburn over the past 3 to 4 days that would completely resolve, today was coming and going again however has now been persistent with the heartburn still coming and going. He reports he feels a little bit of chills right now and has had a bit of a headache. Also has had some nasal congestion for couple of days. Denies any other kind of abdominal pain but did report he initially thought he had pancreatitis as this is how he felt when he had that previously. Denies any history of gastroparesis, patient without any diarrhea and reports his bowel movements have been normal. Does have ulcer on bottom of right foot for which he follows regularly and denies any current infection or abnormality, denies any other wounds or nidus of infection. Patient denies any urinary symptoms. [facility] Medical History Cavus deformity of right foot Chronic neck and back pain Limb weakness unexplained bruising Knee pain Diarrhea Hay fever Diabetes Arthritis Hypertension Incisional hernia, with obstruction, without gangrene Obesity Hypertension History of seizures as a child Type II diabetes mellitus Home Medications ?Medication ?Instructions ?Recorded ?Last Taken ?Type ramipril 10 mg capsule 10 mg PO DAILY BLOOD PRESSURE 10/01/14 05/06/17 07:00 History aspirin 81 mg tablet,delayed 81 mg PO DAILY HEART HEALTH 04/29/17 Unknown History release diphenhydramine HCl 25 mg tablet 25 mg PO DAILY PRN ALLERGY 04/29/17 Unknown History ascorbic acid (vitamin C) 100 mg 100 mg PO DAILY SUPPLEMENT 03/15/24 Unknown History tablet (Vitamin C) atorvastatin 40 mg tablet 40 mg PO DAILY CHOLESTEROL 03/15/24 Unknown History cyclobenzaprine 10 mg tablet 10 mg PO TID PRN MUSCLE SPASMS 03/15/24 Unknown History dicyclomine 10 mg capsule 10 mg PO BID PRN DIARRHEA 03/15/24 Unknown History dulaglutide 4.5 mg/0.5 mL 4.5 mg subcut ENCINAS DIABETES 03/15/24 Unknown History subcutaneous pen injector (Trulicity) fluticasone propionate 50 2 spray intranasal DAILY ALLERGIES 03/15/24 Unknown History mcg/actuation nasal spray,suspension (Allergy Relief (fluticasone)) gabapentin 100 mg capsule 100 mg PO TID PRN JOINT/LOWER BACK 03/15/24 Unknown History PAIN insulin aspart U-100 100 unit/mL 8 unit subcut TIDCM DIABETES 03/15/24 Unknown History (3 mL) subcutaneous pen insulin glargine 100 unit/mL (3 35 unit subcut QHS DIABETES 03/15/24 Unknown History mL) subcutaneous pen (Lantus Solostar U-100 Insulin) naproxen 500 mg tablet (Naprosyn) 500 mg PO BID PRN PAIN/INFLAMMATION 03/15/24 Unknown History nifedipine 90 mg tablet,extended 90 mg PO DAILY HEART/BLOOD PRESSURE 03/15/24 Unknown History release 24 hr tadalafil 20 mg tablet 20 mg PO DAILY PRN ERECTILE 03/15/24 Unknown History DYSFUNCTION Allergy/AdvReac Type Severity Reaction Status Date / Time acetaminophen (From Percocet) AdvReac Nausea Verified 07/30/20 09:39 oxycodone (From Percocet) AdvReac Nausea Verified 07/30/20 09:39 Surgical History H/O ventral hernia repair S/P ORIF (open reduction internal fixation) fracture Social History housing: apartment Smoking Status: Never smoker alcohol intake: current alcohol intake frequency: holidays/special occasions only ROS ROS Narrative General: feels like he has had some chills HENT: some nasal congestion, intermittent headache, denies sore throat EYES: Denies changes in vision Resp: Denies cough, denies shortness of breath Cardiac: Intermittent chest burning GI: Denies any pain outside of the epigastric/chest burning, denies changes in bowel, persistent nausea : Denies changes in urination Extremity: Denies swelling MSK: Some generalized weakness Neuro: Denies any numbness or tingling at time of exam Heme: Denies any bleeding or bruising Skin: Denies rashes, has ulcer on right foot which is not new Psychiatric: No complaints voiced Physical Exam Narrative General: Alert, room is: Patient having some shakes HEENT: Atraumatic, normocephalic Eyes: Anicteric, normal conjunctiva, extraocular movements grossly intact Neck: Supple Respiratory: Clear to auscultation bilaterally, normal respiratory effort Cardiovascular: Sinus tachycardia GI: Soft, nontender, nondistended Extremities: No edema Musculoskeletal: Moving all extremities Neuro: No overt focal neurological deficits Skin: No rashes appreciated, patient with right foot wrapped without drainage on bandage Psych: Cooperative Lab / Micro Data 03/16/24 06:35 03/16/24 06:35 Labs: Laboratory Results - last 24 hr 03/15/24 15:00: Troponin I High Sens 6 03/15/24 15:30: Total Bilirubin 1.70 H, Direct Bilirubin 0.68 H, AST 18, ALT 27, Alkaline Phosphatase 118 H, Total Protein 8.0, Albumin 4.0, Globulin 4.0, Lipase 27, TSH 2.200 03/15/24 15:54: Urine Color Yellow, Urine Clarity Clear, Urine pH 6.0, Ur Specific [place] 1.020, Urine Protein 30 H, Urine Glucose (UA) 250 H, Urine Ketones 50 H, Urine Occult Blood Negative, Urine Nitrite Negative, Urine Bilirubin Negative, Urine Urobilinogen Normal, Ur Leukocyte Esterase 25 H, Urine RBC 0 SEEN, Urine WBC 0-5 SEEN, Ur Squamous Epith Cells 0 SEEN, Urine Bacteria 0 SEEN, Urine Mucus 1+, Urine Opiates Screen NEGATIVE, Urine Methadone Screen NEGATIVE, Ur Barbiturates Screen NEGATIVE, Ur Phencyclidine Scrn NEGATIVE, Ur Amphetamines Screen NEGATIVE, MDMA (Ecstasy) Screen NEGATIVE, U Benzodiazepines Scrn NEGATIVE, Urine Cocaine Screen NEGATIVE, U Cannabinoids Screen NEGATIVE, Ur Drug Screen Comment 03/15/24 16:03: Lactic Acid 2.6 H* 03/15/24 17:01: POC Glucose 235 H 03/15/24 20:20: Lactic Acid 1.3 03/15/24 21:38: POC Glucose 216 H 03/16/24 06:29: POC Glucose 169 H 03/16/24 06:35: WBC 15.2 H, RBC 5.12, Hgb 14.8, Hct 45.5, MCV 88.9, MCH 28.9, MCHC 32.5, RDW Std Deviation 42.4, RDW Coeff of Faheem 12.9, Plt Count 199, MPV 10.0, Immature Gran % (Auto) 0.400, Neut % (Auto) 87.4 H, Lymph % (Auto) 3.9 L, [place] % (Auto) 7.9, Eos % (Auto) 0.1, Baso % (Auto) 0.3, Absolute Neuts (auto) 13.3 H, Absolute Lymphs (auto) 0.59 L, Nucleated RBC % 0, Sodium 140, Potassium 4.0, Chloride 111 H, Carbon Dioxide 22.0, Anion Gap 8, BUN 31 H, Creatinine 1.65 H, Estim Creat Clear Calc 70.09, Est GFR (MDRD) Af Amer 56 L, Est GFR (MDRD) Non-Af 46 L, BUN/Creatinine Ratio 18.8, Glucose 168 H, Calcium 8.9, Phosphorus 2.6, Magnesium 1.8, Total Bilirubin 1.10 H, AST 18, ALT 24, Alkaline Phosphatase 114, Total Protein 7.6, Albumin 3.8, Globulin 3.8, Albumin/Globulin Ratio 1.0 03/16/24 12:04: POC Glucose 234 H Micro: Microbiology 03/15/24 15:54 Urine, Clean Catch Urine Culture - Preliminary Culture exhibits no growth. Imaging Radiology Impression Chest X-Ray 03/15/24 12:55 IMPRESSION: Normal x-ray examination of the chest. Electronically Signed: Rishabh Delgado MD at 13:40 EST , Assessment & Plan Assessment/Plan (1) Nausea & vomiting: PLAN: Plan 58-year-old with intractable nausea vomiting. Differential diagnosis does include possible bilateral kidney infections. Also differential diagnosis does include peptic ulcer disease, gastroparesis secondary to Trulicity, gastritis secondary to naproxen. He will undergo an upper endoscopy to evaluate his upper GI tract. He was explained alternatives, risk, benefits include not withstanding bleeding, pressure, sepsis, perforation, need for more charge and . He will have an ASA of 3. Charges/Coding Visit Charges Inpatient E&M: 44993 Init Hosp L2
--- NOTE | 2024-03-15 17:11 | NURSING ---
iv shortage: so going to use the flush bag of ns that hung in ER as IVF rate until that bag is empty and then switch to large volume bag
[2024-03-15 17:22] LABS: Bedside Glucose 235 mg/dL (74-106)
[2024-03-15] MEDS: Pantoprazole Sodium 40 MG in 0.9% Normal Saline (100mL MB+) 100 ML 330 MG IV ×2 (17:23→21:40)
[2024-03-15] MEDS: proCHLORPERazine 10 MG/2 ML Vial 5 MG IV (17:26)
[2024-03-15] MEDS: Insulin Lispro 100 UNIT/ML INSULN.PEN SC ×2 (17:26→21:41)
--- NOTE | 2024-03-15 17:47 | PCM.HOSP.N ---
Hospitalist Note Additional lab workup obtained with mildly elevated lactic acid of 2.6 which could be due to patient's volume depletion, total bili slightly elevated at 1.7 with very mild elevation of alk phos at 118, overall nonspecific findings. AST and ALT within normal limits. Additionally lipase within normal limits as is TSH. UDS negative. UA not overtly infectious and it is possible that elevated white blood cell count is reactive however given the perinephric stranding and cannot rule out that white count is elevated due to infection will continue antibiotics pending culture results. Patient still with nausea and vomiting with supportive measures, will also consult gastroenterology. Patient n.p.o., glucose checks changed to every 6. Patient hypertensive and has some sinus tachycardia, suspect this is secondary to patient's nausea/vomiting/discomfort combined with an aspect of volume depletion from his several days of nausea and vomiting. Patient being hydrated with IV fluids, treat w/ supportive care.
[2024-03-15 20:06] LABS: Reflex Lactate? Y
[2024-03-15 20:52] LABS: Lactic Acid 1.3 mmol/L (0.4-1.9)
[2024-03-15] MEDS: 0.9% Normal Saline (1000mL) 1,000 ML 100 ML IV (21:39)
[2024-03-15] MEDS: Heparin Injection (Vial) 5,000 UNIT/ML VIAL 5000 UNIT SC (21:41)
[2024-03-15 22:42] LABS: Bedside Glucose 216 mg/dL (74-106)
[2024-03-16] VITALS (10 sets, daily range): BP systolic 121–175; BP diastolic 71–93; PULSE 87–115; RESP 16–18; TEMP 36.4–37.2; O2SAT 96–99
[2024-03-16] MEDS: MELATONIN 3 MG TABLET PO (01:50)
[2024-03-16] MEDS: Ondansetron 4 MG/2 ML Vial IV (01:54)
[2024-03-16] MEDS: 0.9% Normal Saline (1000mL) 1,000 ML 100 ML IV (06:30)
[2024-03-16] MEDS: proCHLORPERazine 10 MG/2 ML Vial 5 MG IV (06:33)
[2024-03-16] MEDS: Heparin Injection (Vial) 5,000 UNIT/ML VIAL 5000 UNIT SC ×2 (06:33→22:35)
--- NOTE | 2024-03-16 06:48 | PCM.PN.HOSP ---
Reason for Visit Reason for Visit: Diagnoses Nausea with vomiting, unspecified (03/15/24) Subjective Subjective Patient with no acute events overnight per self and nursing report reporting that he had improvement of his nausea with medications and no emesis events. He does report still feeling off and not his baseline. Patient did undergo EGD with LA grade D esophagitis with bleeding found 20 to 40 cm from the incisors with biopsies taken with a large amount of food residual in the stomach and in the duodenal bulb with recommendation following for clear liquid, azithromycin 500 mg IV x 1, Reglan 10 mg IV every 6, Haldol 5 mg IM every 6 as needed for nausea, Protonix drip for 24 hours and then if he has any refractory nausea consideration of scopolamine patch and Compazine 25 mg per rectum nightly. Patient denies fevers, chills, abdominal pain, chest pain or dyspnea. Workup in the ED included CBC with WC 16.5, human 16.8, platelet 242 with left shift, CMP with chloride 109, carbon oxide 19, BUN/creatinine 34/1.92, GFR 39, glucose 151, initial lactic acid 2.6 with repeat 1.3 following aggressive hydration, T. bili 1.70, D bili 0.68, AST/ALT 18/27, alk phos 118, troponin 6 with repeat delta 6, lipase 27, TSH 2.2, urinalysis not marked appearing, UDS negative, chest x-ray with no acute cardiopulmonary findings, CT abdomen and pelvis with very nonspecific bilateral perinephric stranding and nonobstructive bilateral intrarenal calculi with no specific abdominal pain or flank pain of note and not marked appearing urinalysis. Objective Data Objective Data Vital Signs: Vital Signs Temp Pulse Resp BP Pulse Ox O2 Del Method 98.9 F 110 H 18 160/93 H 98 Room Air 03/16/24 01:58 03/16/24 01:58 03/16/24 01:58 03/16/24 01:58 03/16/24 01:58 03/16/24 01:58 Oxygen Delivery Method Room Air Weight: 274 lb 8 oz Body Mass Index (BMI) 35.2 Intake & Output: Intake and Output for Last 24 Hours 03/14/24 03/15/24 03/16/24 23:59 23:59 23:59 Intake Total 1707.25 / 1707.25 885 / 885 Balance 1707.25 / 1707.25 885 / 885 Lab / Micro Data 03/16/24 06:35 03/16/24 06:35 Labs: Laboratory Results - last 24 hr 03/15/24 12:12: WBC 16.5 H, RBC 5.84, Hgb 16.8 H, Hct 50.3, MCV 86.1, MCH 28.8, MCHC 33.4, RDW Std Deviation 40.0, RDW Coeff of Faheem 12.9, Plt Count 242, MPV 9.9, Immature Gran % (Auto) 0.500, Neut % (Auto) 84.5 H, Lymph % (Auto) 7.9 L, [place] % (Auto) 6.2, Eos % (Auto) 0.5, Baso % (Auto) 0.4, Absolute Neuts (auto) 13.9 H, Absolute Lymphs (auto) 1.30, Nucleated RBC % 0, Sodium 139, Potassium 4.1, Chloride 109 H, Carbon Dioxide 19.0 L, Anion Gap 11, BUN 34 H, Creatinine 1.92 H, Estim Creat Clear Calc 60.40, Est GFR (MDRD) Af Amer 47 L, Est GFR (MDRD) Non-Af 39 L, BUN/Creatinine Ratio 17.7, Glucose 151 H, Calcium 10.1, Troponin I High Sens 6 03/15/24 15:00: Troponin I High Sens 6 03/15/24 15:30: Total Bilirubin 1.70 H, Direct Bilirubin 0.68 H, AST 18, ALT 27, Alkaline Phosphatase 118 H, Total Protein 8.0, Albumin 4.0, Globulin 4.0, Lipase 27, TSH 2.200 03/15/24 15:54: Urine Color Yellow, Urine Clarity Clear, Urine pH 6.0, Ur Specific Crystal 1.020, Urine Protein 30 H, Urine Glucose (UA) 250 H, Urine Ketones 50 H, Urine Occult Blood Negative, Urine Nitrite Negative, Urine Bilirubin Negative, Urine Urobilinogen Normal, Ur Leukocyte Esterase 25 H, Urine RBC 0 SEEN, Urine WBC 0-5 SEEN, Ur Squamous Epith Cells 0 SEEN, Urine Bacteria 0 SEEN, Urine Mucus 1+, Urine Opiates Screen NEGATIVE, Urine Methadone Screen NEGATIVE, Ur Barbiturates Screen NEGATIVE, Ur Phencyclidine Scrn NEGATIVE, Ur Amphetamines Screen NEGATIVE, MDMA (Ecstasy) Screen NEGATIVE, U Benzodiazepines Scrn NEGATIVE, Urine Cocaine Screen NEGATIVE, U Cannabinoids Screen NEGATIVE, Ur Drug Screen Comment 03/15/24 16:03: Lactic Acid 2.6 H* 03/15/24 17:01: POC Glucose 235 H 03/15/24 20:20: Lactic Acid 1.3 03/15/24 21:38: POC Glucose 216 H Radiography Diagnostic Testing: Radiology Impression Chest X-Ray 03/15/24 12:55 IMPRESSION: Normal x-ray examination of the chest. Electronically Signed: Rishabh Delgado MD at 13:40 EST , Abdomen/Pelvis CT 03/15/24 13:43 IMPRESSION: Nonspecific bilateral perinephric stranding and nonobstructive bilateral intrarenal calculi. Electronically Signed: Rishabh Delgado MD at 14:25 EST , Physical Exam Narrative Physical Examination: General: Awake, alert, oriented x 3 and cooperative, seated upright in the MS bed, fatigued, denies any current nausea or any recent emesis at this time, no abdominal pain. Skin: Normal color, normal turgor, no icterus, no cyanosis. HEENT: AT/NC, EOMI, PERRLA, mildly dry MM. Lungs: CTA bilaterally, moderate effort, mild decrease BL bases, no rales, ronchi or wheezing. Heart: Regular rate and rhythm; no gallop, rub audible. Abdomen: Soft, NTTP, ND, hyperactive BS. Extremities: No cyanosis, clubbing, or edema. Neurological: Patient awake, alert, oriented as noted, cognitive function intact; pupils equally reactive to light and accommodation, cranial nerves gross normal, moving all 4 extremities, no focal deficits, strength moderately globally creased Psychiatric: Affect appears fatigued otherwise normal, no acute evidence of depressive or anxiety feelings. Assessment & Plan Assessment/Plan (1) Esophagitis: PLAN: Plan The patient is a 58 y/o M w/ PMHx: Obesity, HTN, HLD, Diabetes mellitus with chronic R foot diabetic ulcer with cavus deformity of the right foot, Suspected likely CKD stage III unclear type based on GFR trending who presents to the [facility] ED on 03/15/2024 with history of generalized chest burning as well as nausea and emesis primarily dry heaves over the last 3 to 4 days eventually with emesis but now abating with poor oral intake prompting eventual ED evaluation. #1. Intractable nausea and emesis with atypical chest burning suspected secondary to acute esophagitis: Patient admitted to medical surgical floor, 03/16/2024 EGD with evidence of LA grade D esophagitis with bleeding found 20 to 40 cm from the incisors with biopsies taken with a large amount of food residual in the stomach and in the duodenal bulb with recommendation following for clear liquid, azithromycin 500 mg IV x 1, Reglan 10 mg IV every 6, Haldol 5 mg IM every 6 as needed for nausea, Protonix drip for 24 hours and then if he has any refractory nausea consideration of scopolamine patch and Compazine 25 mg per rectum nightly. #2. Acute kidney injury on CKD stage potentially III based on most recent 12/03/2019 GFR 57 but unclear subtype: Secondary to GI losses, poor intake. Admission BUN/Cr 34/1.92, prior baseline creatinine noted to be primarily 1.2-1.4 but has vacillated. Will continue judiciously hydrated, held nephrotoxic medications, 03/16/2024 BUN/creatinine 31/1.65, GFR 46, continue to trend. #3. Nonspecific perinephric stranding, leukocytosis, initial concern for possible infection; however, no obvious UTI and urine culture resulted negative: Will continue to closely monitor, hold off on antibiotic therapy, lactic acid improved with IV fluids. #4. Hypertension: Continue to hold nifedipine and ramipril given poor oral intake, lower BP, add back nifedipine once clinically improving and ramipril once renal function appropriate. #5. Diabetes mellitus type II: Hold oral home regimen, given poor intake will hold long-acting sulin regimen will continue to monitor for restart, will allow clears now as noted per GI, accu checks w/ ISS. #6. Chronic right diabetic foot ulcer, noninfected with cavus deformity: Patient with no drainage, no periwound erythema, granulation tissue noted, continue dressing changes and wound RN evaluation, offloading, elevation. #7. Hyperlipidemia: Wilkening patient on statin therapy. #8. DVT prophylaxis: Heparin Charges/Coding Visit Charges Inpatient E&M: 41721 [facility] Hosp L3
[2024-03-16 06:56] LABS: Bedside Glucose 169 mg/dL (74-106)
[2024-03-16 08:04] LABS: Absolute Lymphocyte Count 0.59 X10^3/uL (0.83-4.51); Absolute Neutrophil Count 13.3 X10^3/uL (2.0-7.7); Basophil# 0.04 X10^3/uL; Basophil% 0.3 % (0-1); Eosinophil# 0.01 X10^3/uL; Eosinophils% 0.1 % (0-5); Hematocrit 45.5 % (40-54); Hemoglobin 14.8 g/dL (13.0-16.5); Lymphocyte # 0.59 X10^3/ul (0.83-4.51); Lymphocyte % 3.9 % (19-41); Mean Corp Hgb Conc 32.5 g/dL (32-36); Mean Corpuscular Hgb 28.9 pg (27.0-32.0); Mean Corpuscular Volume 88.9 fL (80-94); Monocyte% 7.9 % (0-10); NRBC Flagged by Analyzer 0 % (0-5); Neutrophil # 13.31 X10^3/uL (2.7-7.7); Neutrophil % 87.4 % (47-70); POSITIVE DIFFERENTIAL YES; Platelet Count 199 K/mm3 (150-450); RBC Distribution Width CV 12.9 % (11.6-14.6); RBC Distribution Width SD 42.4 fl (35.1-43.9); Red Blood Count 5.12 M/mm3 (4.6-6.2); White Blood Count 15.2 K/mm3 (4.4-11.0)
[2024-03-16 08:34] LABS: AST(SGOT) 18 U/L (15-37); Alanine Aminotransfer ALT/SGPT 24 U/L (16-61); Albumin, Serum 3.8 g/dL (3.2-5.0); Alkaline Phosphatase 114 U/L (45-117); Anion Gap 8 (5-15); BUN 31 mg/dL (7-18); BUN/Creat Ratio 18.8 RATIO (10-20); Calcium,Total 8.9 mg/dL (8.5-10.1); Chloride 111 mmol/L (98-107); Creatinine, Serum 1.65 mg/dL (0.70-1.30); EST Glomerular Filtration Rate 46 mL/min (>60); Est Glom Filt Rate - Afr Amer 56 mL/min (>60); Estimated Creatinine Clearance 70.09 ml/min; Globulin 3.8 g/dL (2.2-4.2); Glucose 168 mg/dL (74-106); Protein, Total 7.6 g/dL (6.4-8.2); Sodium Level 140 mmol/L (136-145)
[2024-03-16 09:14] LABS: Magnesium 1.8 mg/dL (1.6-2.6); Phosphorus 2.6 mg/dL (2.5-4.9)
--- NOTE | 2024-03-16 09:55 | CASEMGMT ---
RN CM Face to Face with patient for initial transition planning/care coordination assessment. RN CM introduced self and role at [facility]. Patient lying in bed, alert and oriented. Patient willing to participate in assessment and is able to answer all questions appropriately. Care providers, pharmacy, and demographics verified. Strata: 2 PCP: Randal Specialists: Natalia, reacher Preferred Pharmacy: [facility] Insurance: [employer] Prescription Benefit: yes Living Will/HPOA: none LNOK: mother Living Arrangements: Patient lives with his mother in a 3 story townhouse. Patient is independent and able to ambulate stairs. Transportation: self, friends DME/HHC: Patient has shower chair, raised toilet, cane, walker at home. Patient has been to inpatient rehab in the past. Patient has had [facility] HHC in the past Patient wishes to discharge home, denies need for home health at this time. Patient states he has no further needs or concerns at this time. CM to follow for discharge planning needs that may arise. Disposition Plan: Patient to discharge home with family support and follow-up plans in place. Federica JANE, RN, CM
[2024-03-16] MEDS: Pantoprazole Sodium 40 MG in 0.9% Normal Saline (100mL MB+) 100 ML 330 MG IV (10:26)
[2024-03-16] MEDS: Ceftriaxone 1 GM/50 ML BAG IV (10:27)
[2024-03-16] MEDS: Fluticasone 0.05% 1 SPRAY NASAL.SRY 2 SPRAY NASAL (12:19)
[2024-03-16] MEDS: Insulin Lispro 100 UNIT/ML INSULN.PEN SC ×3 (12:19→22:36)
[2024-03-16 12:23] LABS: Bedside Glucose 234 mg/dL (74-106)
--- NOTE | 2024-03-16 14:45 | EGD_PTH ---
PATIENT: SHERRI CROWE LOC: MS3 U#:[id number] AGE/SX: 58/M ROOM: WI312 RE03/15/[address]: Dr. Daniel Khoury DO : 1965 BED: 1 DIS: 03/19/2024 SPEC #: [id number] RECD: 03/16/24 17:19 STATUS: MIAH REMatt #: [id number] MINOR: 03/16/24 14:[address]: Brad Riley DEPT: SURGICAL PATHOLOGY RECD BY: Liliana Corey ENTERED: 03/19/24 09:05 SP TYPE: EGD BIOPSY OT DR: MD Dr. Gerald Fofana DO Dr. Mark Tereletsky, DO Dr. Paige Pierce, MD Tissues: Esophagus, NOS Procedures: Special Stain Group I Surgery Specimen Level IV GMS Stain (control) Alcian Blue/PAS (control) HEADER OPERATION: EGD with biopsy PRE-OP DIAGNOSIS: Nausea/vomiting TISSUE SUBMITTED: Random esophagus biopsy MICROSCOPIC DIAGNOSIS Esophagus, random biopsy: Acute esophagitis. Fibrinopurulent material. Negative for fungal organisms. See comment. 03/20/2024 COMMENT GMS stain with matched control was used in the evaluation of this case. Clinical correlation is suggested. MICROSCOPIC DESCRIPTION Slides are reviewed. GROSS DESCRIPTION Received in fixative is one container labeled with the patient's name and designated Random esophagus biopsy. The specimen consists of multiple irregular fragments of light puga soft tissue that in aggregate measure 0.5 x 0.3 x 0.1 cm. The specimen is totally submitted in one cassette. 03/19/2024 TC:2 CPT:67068,91093
--- NOTE | 2024-03-16 14:51 | PCM.PRE.AN2 ---
ASA Classification* ASA Classification ASA Classification: 3 Assessment & Plan Anesthesia* Anesthesia Assessment Anesthesia Assessment: Discussed sedation and/or anesthesia options, risks, benefits, and alternatives with patient/parents/legal guardian/POA. Questions invited. The patient/parents/legal guardian/POA seems to understand and agrees to proceed with anesthesia plan. Reviewed the physical assessment, medical history, allergy history and patient home medications list prior to surgery/procedure/anesthetic and documented any changes. Performed airway and anesthesia risk assessments. Anesthesia Type Anesthesia Type: MAC History Source History Obtained from:: Patient and Chart Anesthesia Focused Assessment* Temperature: 98.0 F Pulse Rate: 115 Blood Pressure: 150/75 Respiratory Rate: 18 Pulse Ox: 98 Oxygen Delivery Method: Room Air Airway Assessment Mouth opens: >3 cm Mallampati Score: I Teeth Condition: Missing (Multiple missing teeth. Poor dentition.) Neck Range of motion (ROM): Limited ROM (Somewhat decreased extension.) Focused Labs Anesthesia Preop lab: CBC WBC 15.2 K/mm3 (4.4-11.0) H 03/16/24 06:35 RBC 5.12 M/mm3 (4.6-6.2) 03/16/24 06:35 Hgb 14.8 g/dL (13.0-16.5) 03/16/24 06:35 Hct 45.5 % (40-54) 03/16/24 06:35 Plt Count 199 K/mm3 (150-450) 03/16/24 06:35 CHEMISTRY Potassium 4.0 mmol/L (3.5-5.1) 03/16/24 06:35 Sodium 140 mmol/L (136-145) 03/16/24 06:35 Magnesium 1.8 mg/dL (1.6-2.6) 03/16/24 06:35 Phosphorus 2.6 mg/dL (2.5-4.9) 03/16/24 06:35 BUN 31 mg/dL (7-18) H 03/16/24 06:35 Creatinine 1.65 mg/dL (0.70-1.30) H 03/16/24 06:35 Glucose 168 mg/dL (74-106) H 03/16/24 06:35 POC Glucose 234 mg/dL (74-106) H 03/16/24 12:04 TSH 2.200 uIU/mL (0.358-3.740) 03/15/24 15:30 COAG Pre-Assessment Diagnosis/Proposed Procedure Planned Operative Procedure(s): Esophagogastroduodenoscopy Anesthesia History Anesthesia History - certified retinal angiographer: Anesthesia History - certified retinal angiographer Hx Hospitalization Yes 04/29/17 13:50 Any Problems With Anesthesia No 04/29/17 13:50 Cholinesterase deficiency No 04/29/17 13:50 You/Your Family Experience No 04/29/17 13:50 fever (hyperthermia) with Relationship Recent Exposure to Contagious No 05/06/17 10:26 Disease Does patient have nerve No 04/29/17 13:50 stimulator Patient instructed to have device shut off --Does patient have Pacemaker or ICD? When Was Last Pacemaker Check QUESTION #4 FULL TEXT: You/Your Family Experience fever (hyperthermia) with Anesthesia Last Oral Intake Last Oral intake: Last Oral Intake NPO since Meds taken in AM with sips of water? Meds patient instructed to take am of surgery Any additional information?: Yes NPO since: 00:00 PONV PONV - certified retinal angiographer: PONV - certified retinal angiographer Female HX of Motion Sickness HX of N/V After Surgery Non-Smoker Duration of Surgery greater than 60 minutes Number of Risk Factors PONV Score Height & Weight Height & Weight: Anesthesia: Height & Weight Height 6 ft 2 in 03/16/24 11:03 Weight: 124.511 kg 03/16/24 11:03 Body Mass Index (BMI) 35.2 03/15/24 16:14 Respiratory Assessment Respiratory Assessment - certified retinal angiographer: Respiratory Tract Infection Hx - certified retinal angiographer Hx Respiratory Tract Infection No 04/29/17 13:50 STOP Sleep Apnea STOP Sleep Apnea - certified retinal angiographer: STOP Sleep Apnea - certified retinal angiographer Hx Hypertension Yes 03/16/24 10:30 Hx Sleep Apnea No 03/15/24 16:40 CPAP No 05/06/17 13:01 BIPAP No 04/29/17 13:50 Do you snore loudly (louder No 03/15/24 16:40 than talking or can be heard Do you often feel tired/ No 03/15/24 16:40 fatigued/ sleepy during daytime? Has anyone observed you stop No 03/15/24 16:40 breathing during sleep? STOP Results Negative 03/15/24 16:40 QUESTION #5 FULL TEXT : Do you snore loudly (louder than talking or can be heard through closed doors)? 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 Specify any problems Hx of Preganancy in last 3 N/A 03/15/24 16:40 Months Nurse Filling Out Transfusion EBOOTHE 03/15/24 16:40 & Questions: Date: 03/15/24 03/15/24 16:40 Time: 16:43 03/15/24 16:40 Patient unable to answer at this time (ie. confused, unrespo /Reproduction History /Reproductive History - certified retinal angiographer: /Reproductive Hx- certified retinal angiographer Hx Now Gestational Age (in weeks): EDC: Hx Hx Para Hx Section SAB Active Medications Active Medications: Current Medications Generic Name Dose Route Start Last Admin Trade Name Freq PRN Reason Stop Dose Admin Albuterol Sulfate 2.5 mg 03/15/24 16:12 Albuterol 2.5 Mg/3 Ml Vial.Neb. INHALATION Q2H PRN PRN SOB &/OR WHEEZING Aspirin 81 mg 03/16/24 10:00 03/16/24 12:15 Aspirin E.C. 81 Mg Tablet PO Not Given DAILY WAN Atorvastatin Calcium 40 mg 03/16/24 10:00 03/16/24 12:15 Atorvastatin Calcium 40 Mg Tablet PO Not Given DAILY WAN Fluticasone Propionate 2 spray 03/16/24 10:00 03/16/24 12:19 Fluticasone 0.05% 1 [place] Nasal.Sry NASAL 2 spray DAILY WAN Administration Glucagon 1 mg 03/15/24 16:12 Glucagon 1 Mg/Ml Syringe IM X1 PRN HYPOGLYCEMIA Protocol Heparin Sodium (Porcine) 5,000 unit 03/15/24 22:00 03/16/24 06:33 Heparin Injection (Vial) 5,000 Unit/Ml Vial SC 5,000 unit Q8 WAN Administration Hydralazine HCl 10 mg 03/16/24 07:07 Hydralazine 20 Mg/Ml Vial IV Q4H PRN PRN SBP > 160 Protocol Dextrose 250 mls @ 0 mls/hr 03/15/24 16:12 Dextrose 10%-Water IV .Q0M PRN HYPOGLYCEMIA Protocol As Directed Pantoprazole Sodium 40 mg/ 110 mls @ 330 mls/hr 03/15/24 22:00 03/16/24 10:50 Sodium Chloride IV Infused Q12 WAN Infusion Ceftriaxone Sodium 1 gm in 50 mls @ 100 mls/hr 03/16/24 10:00 03/16/24 11:30 Rocephin IV Infused Q24 WAN Infusion Sodium Chloride 500 mls @ 15 mls/hr 03/15/24 16:14 IV .[id number] PRN Additional IVPB Infusion Sodium Chloride 500 mls @ 15 mls/hr 03/15/24 16:14 03/15/24 21:40 IV Infused .[id number] PRN Infusion Saline Flush Insulin Human Lispro 0 unit 03/15/24 22:00 03/16/24 12:19 Insulin Lispro 100 Unit/Ml Insuln.Pen SC 4 units Q6H WAN Administration Protocol Melatonin 3 mg 03/15/24 16:12 03/16/24 01:50 Melatonin 3 Mg Tablet PO 3 mg QHS PRN PRN Administration INSOMNIA Ondansetron HCl 4 mg 03/15/24 16:12 03/16/24 01:54 Ondansetron 4 Mg/2 Ml Vial IV 4 mg Q8H PRN PRN Administration NAUSEA/VOMITING Prochlorperazine Edisylate 5 mg 03/15/24 16:12 03/16/24 06:33 Prochlorperazine 10 Mg/2 Ml Vial IV 5 mg Q4H PRN PRN Administration Breakthrough nausea/vomiting Senna/Docusate Sodium 2 tablet 03/15/24 16:12 Senna/Docusate Sodium 1 Tablet PO BID PRN PRN Constipation Sodium Chloride 10 - 40 ml 03/15/24 16:14 03/15/24 17:29 0.9% Saline Lock 10 Ml Syringe IV 10 ml UD PRN Administration SALINE FLUSH [facility] Medical History Cavus deformity of right foot Chronic neck and back pain Limb weakness unexplained bruising Knee pain Diarrhea Hay fever Diabetes Arthritis Hypertension Incisional hernia, with obstruction, without gangrene Obesity Hypertension History of seizures as a child Type II diabetes mellitus Home Medications ?Medication ?Instructions ?Recorded ?Last Taken ?Type ramipril 10 mg capsule 10 mg PO DAILY BLOOD PRESSURE 10/01/14 05/06/17 07:00 History aspirin 81 mg tablet,delayed 81 mg PO DAILY HEART HEALTH 04/29/17 Unknown History release diphenhydramine HCl 25 mg tablet 25 mg PO DAILY PRN ALLERGY 04/29/17 Unknown History ascorbic acid (vitamin C) 100 mg 100 mg PO DAILY SUPPLEMENT 03/15/24 Unknown History tablet (Vitamin C) atorvastatin 40 mg tablet 40 mg PO DAILY CHOLESTEROL 03/15/24 Unknown History cyclobenzaprine 10 mg tablet 10 mg PO TID PRN MUSCLE SPASMS 03/15/24 Unknown History dicyclomine 10 mg capsule 10 mg PO BID PRN DIARRHEA 03/15/24 Unknown History dulaglutide 4.5 mg/0.5 mL 4.5 mg subcut ENCINAS DIABETES 03/15/24 Unknown History subcutaneous pen injector (Trulicity) fluticasone propionate 50 2 spray intranasal DAILY ALLERGIES 03/15/24 Unknown History mcg/actuation nasal spray,suspension (Allergy Relief (fluticasone)) gabapentin 100 mg capsule 100 mg PO TID PRN JOINT/LOWER BACK 03/15/24 Unknown History PAIN insulin aspart U-100 100 unit/mL 8 unit subcut TIDCM DIABETES 03/15/24 Unknown History (3 mL) subcutaneous pen insulin glargine 100 unit/mL (3 35 unit subcut QHS DIABETES 03/15/24 Unknown History mL) subcutaneous pen (Lantus Solostar U-100 Insulin) naproxen 500 mg tablet (Naprosyn) 500 mg PO BID PRN PAIN/INFLAMMATION 03/15/24 Unknown History nifedipine 90 mg tablet,extended 90 mg PO DAILY HEART/BLOOD PRESSURE 03/15/24 Unknown History release 24 hr tadalafil 20 mg tablet 20 mg PO DAILY PRN ERECTILE 03/15/24 Unknown History DYSFUNCTION Allergy/AdvReac Type Severity Reaction Status Date / Time acetaminophen (From Percocet) AdvReac Nausea Verified 07/30/20 09:39 oxycodone (From Percocet) AdvReac Nausea Verified 07/30/20 09:39 Surgical History H/O ventral hernia repair S/P ORIF (open reduction internal fixation) fracture Social History housing: apartment Smoking Status: Never smoker alcohol intake: current alcohol intake frequency: holidays/special occasions only Review of Systems (Anesthesia) ROS Narrative System reviewed and no additional complaints, except as documented.
--- NOTE | 2024-03-16 15:32 | OP.CCLET_ITS ---
03/16/2024 Gerald Tee [address] [place] [address] Re : Upper GI endoscopy procedure for Alpesh Morejonram Dear Dr. Tee This procedure was performed on Saturday, March 16, 2024. My impressions and recommendations are as follows: Impressions : - LA Grade D erosive esophagitis with bleeding. Biopsied. - A large amount of food (residue) in the stomach. - Retained food in the duodenum. Recommendations : - Return patient to hospital burns for ongoing care. - Clear liquid diet. -Azithromycin 500 mg IV x 1 dose -Reglan 10 mg IV every 6 hours -Haldol 5 mg IM every 6 hours as needed nausea -Protonix drip x 24 hours -If patient still has refractory nausea vomiting in 24 hours then add scopolamine patch and Compazine 25 mg per rectum nightly - - - Continue present medications. My findings are described in the full procedure note, which is enclosed. If I can be of further assistance, please feel free to contact me at . Sincerely, Brad Riley, 03/16/2024 3:32:05 PM This report has been signed electronically.
--- NOTE | 2024-03-16 15:32 | OP.EGD_ITS ---
Patient Name: Alpesh Stratton Procedure Date: 03/16/2024 3:16 PM Date of : 1965 Age: 58 Procedure: Upper GI endoscopy Indications: Epigastric abdominal pain Providers: Brad Riley DO Medicines: Monitored Anesthesia Care Patient Profile: This is a 58 year old male. Refer to note in patient chart for documentation of history and physical. Patient has symptoms of acute nausea and acute vomiting. Complications: No immediate complications. Procedure: Pre-Anesthesia Assessment: - Prior to the procedure, a History and Physical was performed, and patient medications and allergies were reviewed. The patient is competent. The risks and benefits of the procedure and the sedation options and risks were discussed with the patient. All questions were answered and informed consent was obtained. Patient identification and proposed procedure were verified by the physician in the pre-procedure area. Mental Status Examination: alert and oriented. Airway Examination: normal oropharyngeal airway and neck mobility. Respiratory Examination: clear to auscultation. CV Examination: normal. Prophylactic Antibiotics: The patient does not require prophylactic antibiotics. Prior Anticoagulants: The patient has taken no anticoagulant or antiplatelet agents except for NSAID medication. ASA Grade Assessment: II - A patient with mild systemic disease. After reviewing the risks and benefits, the patient was deemed in satisfactory condition to undergo the procedure. The anesthesia plan was to use monitored anesthesia care (MAC). Immediately prior to administration of medications, the patient was re-assessed for adequacy to receive sedatives. The heart rate, respiratory rate, oxygen saturations, blood pressure, adequacy of pulmonary ventilation, and response to care were monitored throughout the procedure. The physical status of the patient was re-assessed after the procedure. After obtaining informed consent, the endoscope was passed under direct vision. Throughout the procedure, the patient's blood pressure, pulse, and oxygen saturations were monitored continuously. The gastroscope was introduced through the mouth, and advanced to the second part of duodenum. The upper GI endoscopy was accomplished without difficulty. The patient tolerated the procedure well. Scope In: 3:22:06 PM Scope Out: 3:24:38 PM Total Procedure Duration Time 0 hours 2 minutes 32 seconds Findings: LA Grade D (one or more mucosal breaks involving at least 75% of esophageal circumference) esophagitis with bleeding was found 20 to 40 cm from the incisors. Biopsies were taken with a cold forceps for histology. Verification of patient identification for the specimen was done. Estimated blood loss was minimal. A large amount of food (residue) was found in the entire examined stomach. Food (residue) was found in the duodenal bulb. Impression: - LA Grade D erosive esophagitis with bleeding. Biopsied. - A large amount of food (residue) in the stomach. - Retained food in the duodenum. Recommendation: - Return patient to hospital burns for ongoing care. - Clear liquid diet. -Azithromycin 500 mg IV x 1 dose -Reglan 10 mg IV every 6 hours -Haldol 5 mg IM every 6 hours as needed nausea -Protonix drip x 24 hours -If patient still has refractory nausea vomiting in 24 hours then add scopolamine patch and Compazine 25 mg per rectum nightly - - - Continue present medications. Procedure Code(s): --- Professional --- 60015, Esophagogastroduodenoscopy, flexible, transoral; with biopsy, single or multiple CPT copyright 2021 [employer]. All rights reserved. The codes documented in this report are preliminary and upon surgical coder review may be revised to meet current compliance requirements. Brad Riley DO 03/16/2024 3:32:05 PM This report has been signed electronically. Number of Addenda: 0 Note Initiated On: 03/16/2024 3:16 PM
--- NOTE | 2024-03-16 15:34 | PCM.POST.ANE ---
Anesthesia: Postop Eval I Current Vital Signs Temperature: 97.8 F Pulse Rate: 102 Blood Pressure: 121/77 Respiratory Rate: 18 Pulse Ox: 97 Oxygen Delivery Method: Room Air Assessment Airway patent: Yes Spontaneous unlabored respirations: Yes Mental status: Asleep nausea: No Vomiting: No Anesthesia Complication: No Fluid Hydration Crystalloid volume administer (ml): 30 Total IV fluid infused: 30 Progress Note Anesthesia document: Postop Eval 1 completed: Yes
[2024-03-16] MEDS: Metoclopramide 10 MG/2 ML Vial IV (17:05)
[2024-03-16 17:07] LABS: Bedside Glucose 167 mg/dL (74-106)
--- NOTE | 2024-03-16 17:21 | PCM.POSTANE2 ---
Anesthesia Postop Eval I Sum Postop Eval Completion status Anesthesia document: Postop Eval 1 completed: Yes Anesthesia Postop Eval I Summary Anesthesia Postop Eval I Summary: Anesthesia Postop Eval I: Assessment Summary Airway patent Yes 03/16/24 15:35 [email or web address] Spontaneous unlabored Yes 03/16/24 15:35 [email or web address] respirations Mental status Asleep 03/16/24 15:35 [email or web address] nausea No 03/16/24 15:35 [email or web address] Vomiting No 03/16/24 15:35 [email or web address] Anesthesia Postop Eval I: Fluid Summary Crystalloid volume administer 30 03/16/24 15:35 [email or web address] (ml) Colloids volume administered ( ml) Blood Product volume administered (ml) Total IV fluid infused 30 03/16/24 15:35 [email or web address] Anesthesia Postop Eval I: Summary Notes Anesthesia Complication No 03/16/24 15:35 [email or web address] Anesthesia Complication Comment: Post-operative progress note Anesthesia: Postop Eval II Evaluation Mental status: Awake and Calm Pain Level: 0 nausea: No Vomiting: No Complications Anesthesia Complication: No
[2024-03-16] MEDS: Azithromycin 500 MG in Dextrose 5%-Water (250mL Bag) 250 ML 250 MG IV (18:19)
[2024-03-16] MEDS: Haloperidol Lactate 5 MG/ML Vial IM (18:25)
[2024-03-16] MEDS: Pantoprazole Sodium 80 MG in 0.9% Normal Saline (100mL Bag) 80 ML 10 MG CONT INF (19:43)
[2024-03-16] MEDS: 0.9% Saline Lock 10 ML Syringe IV (19:43)
[2024-03-16 23:04] LABS: Bedside Glucose 186 mg/dL (74-106)
[2024-03-17] VITALS (7 sets, daily range): BP systolic 155–175; BP diastolic 78–90; PULSE 94–102; RESP 18; TEMP 36.8–37.2; O2SAT 97–98
[2024-03-17] MEDS: hydrALAZINE 20 MG/ML Vial 10 MG IV ×3 (00:02→20:23)
[2024-03-17] MEDS: MELATONIN 3 MG TABLET PO ×2 (00:02→21:47)
[2024-03-17] MEDS: Metoclopramide 10 MG/2 ML Vial IV ×5 (00:03→23:48)
[2024-03-17] MEDS: 0.9% Saline Lock 10 ML Syringe IV ×8 (00:06→23:48)
[2024-03-17] MEDS: Ondansetron 4 MG/2 ML Vial IV ×2 (03:05→20:23)
[2024-03-17] MEDS: proCHLORPERazine 10 MG/2 ML Vial 5 MG IV ×2 (03:22→21:38)
[2024-03-17] MEDS: Insulin Lispro 100 UNIT/ML INSULN.PEN SC ×4 (04:34→21:39)
[2024-03-17 05:26] LABS: Absolute Lymphocyte Count 0.51 X10^3/uL (0.83-4.51); Absolute Neutrophil Count 9.9 X10^3/uL (2.0-7.7); Basophil# 0.04 X10^3/uL; Basophil% 0.4 % (0-1); Eosinophil# 0.01 X10^3/uL; Eosinophils% 0.1 % (0-5); Hematocrit 42.9 % (40-54); Hemoglobin 14.5 g/dL (13.0-16.5); Lymphocyte # 0.51 X10^3/ul (0.83-4.51); Lymphocyte % 4.5 % (19-41); Mean Corp Hgb Conc 33.8 g/dL (32-36); Mean Corpuscular Hgb 29.6 pg (27.0-32.0); Mean Corpuscular Volume 87.6 fL (80-94); Mean Platelet Vol. 9.4 fl (6.2-12.0); Monocyte# 0.89 X10^3/uL; Monocyte% 7.8 % (0-10); NRBC Flagged by Analyzer 0 % (0-5); Neutrophil # 9.89 X10^3/uL (2.7-7.7); Neutrophil % 86.8 % (47-70); POSITIVE DIFFERENTIAL YES; Platelet Count 161 K/mm3 (150-450); RBC Distribution Width CV 12.9 % (11.6-14.6); RBC Distribution Width SD 41.2 fl (35.1-43.9); White Blood Count 11.4 K/mm3 (4.4-11.0)
[2024-03-17 06:12] LABS: ALB/GLOB Ratio 0.9 RATIO (0.9-2.4); AST(SGOT) 30 U/L (15-37); Alanine Aminotransfer ALT/SGPT 22 U/L (16-61); Albumin, Serum 3.5 g/dL (3.2-5.0); Alkaline Phosphatase 99 U/L (45-117); Anion Gap 6 (5-15); BUN 27 mg/dL (7-18); BUN/Creat Ratio 18.9 RATIO (10-20); Calcium,Total 9.1 mg/dL (8.5-10.1); Chloride 107 mmol/L (98-107); Creatinine, Serum 1.43 mg/dL (0.70-1.30); EST Glomerular Filtration Rate 54 mL/min (>60); Est Glom Filt Rate - Afr Amer 66 mL/min (>60); Estimated Creatinine Clearance 80.87 ml/min; Globulin 3.8 g/dL (2.2-4.2); Glucose 168 mg/dL (74-106); Potassium 4.3 mmol/L (3.5-5.1); Protein, Total 7.3 g/dL (6.4-8.2); Sodium Level 136 mmol/L (136-145)
[2024-03-17] MEDS: Pantoprazole Sodium 80 MG in 0.9% Normal Saline (100mL Bag) 80 ML 10 MG CONT INF ×2 (06:17→17:26)
[2024-03-17] MEDS: Heparin Injection (Vial) 5,000 UNIT/ML VIAL 5000 UNIT SC ×3 (06:18→21:39)
--- NOTE | 2024-03-17 06:39 | PN.HOSP_ITS ---
Reason for Visit Reason for Visit: Diagnoses Esophagitis, unspecified without bleeding (03/15/24) Nausea with vomiting, unspecified (03/15/24) Subjective Subjective Patient overnight with unfortunately continued bouts of emesis and nausea with initial trial of clears therefore transition back to ice chips with intermittent bouts of also hiccups requiring medication administration. Unfortunately he was not administered per rectum Compazine or scopolamine patch which had been ordered per GI as a secondary step therefore discussed now with patient and staff and he these will be administered. Patient denies any significant burning sensation in his chest like he had been having. He notes being very fatigued. Patient denies fevers, chills, abdominal pain, chest pain or dyspnea. Objective Data Objective Data Vital Signs: Vital Signs Temp Pulse Resp BP Pulse Ox O2 Del Method 97.9 F 100 17 175/79 H 96 Room Air 03/16/24 23:52 03/17/24 00:02 03/16/24 23:52 03/17/24 00:02 03/16/24 23:52 03/16/24 23:55 Oxygen Delivery Method Room Air Weight: 274 lb 8 oz Body Mass Index (BMI) 35.2 Intake & Output: Intake and Output for Last 24 Hours 03/15/24 03/16/24 03/17/24 23:59 23:59 23:59 Intake Total 1707.25 / 1707.25 3000 / 3000 100 / 100 Balance 1707.25 / 1707.25 3000 / 3000 100 / 100 Lab / Micro Data 03/17/24 05:15 03/17/24 05:15 Labs: Laboratory Results - last 24 hr 03/16/24 06:29: POC Glucose 169 H 03/16/24 06:35: WBC 15.2 H, RBC 5.12, Hgb 14.8, Hct 45.5, MCV 88.9, MCH 28.9, MCHC 32.5, RDW Std Deviation 42.4, RDW Coeff of Faheem 12.9, Plt Count 199, MPV 10.0, Immature Gran % (Auto) 0.400, Neut % (Auto) 87.4 H, Lymph % (Auto) 3.9 L, Humphreys % (Auto) 7.9, Eos % (Auto) 0.1, Baso % (Auto) 0.3, Absolute Neuts (auto) 13.3 H, Absolute Lymphs (auto) 0.59 L, Nucleated RBC % 0, Sodium 140, Potassium 4.0, Chloride 111 H, Carbon Dioxide 22.0, Anion Gap 8, BUN 31 H, Creatinine 1.65 H, Estim Creat Clear Calc 70.09, Est GFR (MDRD) Af Amer 56 L, Est GFR (MDRD) Non-Af 46 L, BUN/Creatinine Ratio 18.8, Glucose 168 H, Calcium 8.9, Phosphorus 2.6, Magnesium 1.8, Total Bilirubin 1.10 H, AST 18, ALT 24, Alkaline Phosphatase 114, Total Protein 7.6, Albumin 3.8, Globulin 3.8, Albumin/Globulin Ratio 1.0 03/16/24 12:04: POC Glucose 234 H 03/16/24 16:49: POC Glucose 167 H 03/16/24 22:34: POC Glucose 186 H 03/17/24 05:15: WBC 11.4 H, RBC 4.90, Hgb 14.5, Hct 42.9, MCV 87.6, MCH 29.6, MCHC 33.8, RDW Std Deviation 41.2, RDW Coeff of Faheem 12.9, Plt Count 161, MPV 9.4, Immature Gran % (Auto) 0.400, Neut % (Auto) 86.8 H, Lymph % (Auto) 4.5 L, Humphreys % (Auto) 7.8, Eos % (Auto) 0.1, Baso % (Auto) 0.4, Absolute Neuts (auto) 9.9 H, Absolute Lymphs (auto) 0.51 L, Nucleated RBC % 0, Sodium 136, Potassium 4.3, Chloride 107, Carbon Dioxide 24.0, Anion Gap 6, BUN 27 H, Creatinine 1.43 H , Estim Creat Clear Calc 80.87, Est GFR (MDRD) Af Amer 66, Est GFR (MDRD) Non-Af 54 L, BUN/Creatinine Ratio 18.9, Glucose 168 H, Calcium 9.1, Total Bilirubin 1.00, AST 30, ALT 22, Alkaline Phosphatase 99, Total Protein 7.3, Albumin 3.5, Globulin 3.8, Albumin/Globulin Ratio 0.9 Micro: Microbiology 03/15/24 15:54 Urine, Clean Catch Urine Culture - Preliminary Culture exhibits no growth. Physical Exam Narrative Physical Examination: General: Awake, alert, oriented x 3 and cooperative, seated upright in the MS bed, fatigued, ill-appearing. Skin: Normal color, normal turgor, no icterus, no cyanosis. HEENT: AT/NC, EOMI, PERRLA, dry MM. Lungs: CTA bilaterally, moderate effort, mild decrease BL bases, no rales, ronchi or wheezing. Heart: Regular rate and rhythm; no gallop, rub audible. Abdomen: Soft, NTTP, ND, distant decreased BS. Extremities: No cyanosis, clubbing, or edema. Neurological: Patient awake, alert, oriented as noted, cognitive function intact; pupils equally reactive to light and accommodation, cranial nerves gross normal, moving all 4 extremities, no focal deficits, strength moderately globally creased Psychiatric: Affect appears fatigued and ill-appearing, no acute evidence of depressive or anxiety feelings. Assessment & Plan Assessment/Plan (1) Esophagitis: PLAN: Plan The patient is a 58 y/o M w/ PMHx: Obesity, HTN, HLD, Diabetes mellitus with chronic R foot diabetic ulcer with cavus deformity of the right foot, Suspected likely CKD stage III unclear type based on GFR trending who presents to the [facility] ED on 03/15/2024 with history of generalized chest burning as well as nausea and emesis primarily dry heaves over the last 3 to 4 days eventually with emesis but now abating with poor oral intake prompting eventual ED evaluation. #1. Intractable nausea and emesis with atypical chest burning suspected secondary to acute esophagitis: Patient admitted to medical surgical floor, 03/16/2024 EGD with evidence of LA grade D esophagitis with bleeding found 20 to 40 cm from the incisors with biopsies taken with a large amount of food residual in the stomach and in the duodenal bulb with recommendation following for clear liquid, azithromycin 500 mg IV x 1, Reglan 10 mg IV every 6, Haldol 5 mg IM every 6 as needed for nausea, Protonix drip for 24 hours. 03/17/2024 given overnight intractable nausea and emesis unfortunately had transition back to ice chips therefore we will continue Protonix drip for further than 24 hours and at this time we will transition to second step plan with additional agents as noted above but also placement of scopolamine patch and will trial Compazine 25 mg ND now and continue nightly if necessary. #2. Acute kidney injury on CKD stage potentially III based on most recent 12/03/2019 GFR 57 but unclear subtype: Secondary to GI losses, poor intake. Admission BUN/Cr 34/1.92, prior baseline creatinine noted to be primarily 1.2- 1.4 but has vacillated. Will continue judiciously hydrated, held nephrotoxic medications, 03/16/2024 BUN/creatinine 31/1.65, GFR 46-> 03/17/2024 BUN/creatinine 27/1.43, GFR 54 thus improved despite #1 not improving. #3. Nonspecific perinephric stranding, leukocytosis, initial concern for possible infection; however, no obvious UTI and urine culture resulted negative: Will continue to closely monitor, hold off on antibiotic therapy, lactic acid improved with IV fluids. #4. Hypertension: Initially nifedipine and ramipril Aram given poor intake and mildly elevated creatinine. Patient also initially with lower blood pressure but this is since improved. Will continue to hold ramipril but will initiate back nifedipine. #5. Diabetes mellitus type II: Hold oral home regimen, given poor intake will hold long-acting insulin regimen will continue to monitor for restart, will allow clears now as noted per GI, accu checks w/ ISS. #6. Chronic right diabetic foot ulcer, noninfected with cavus deformity: Patient with no drainage, no periwound erythema, granulation tissue noted, continue dressing changes and wound RN evaluation, offloading, elevation. #7. Hyperlipidemia: We will continue patient home statin therapy. #8. DVT prophylaxis: Heparin Charges/Coding Visit Charges Inpatient E&M: 84104 [facility] Hosp L3
[2024-03-17 06:41] LABS: Bedside Glucose 162 mg/dL (74-106)
[2024-03-17] MEDS: Fluticasone 0.05% 1 SPRAY NASAL.SRY 2 SPRAY NASAL (08:40)
[2024-03-17] MEDS: proCHLORPERazine 25 MG Suppos. RC (10:09)
[2024-03-17] MEDS: Azithromycin 500 MG in Dextrose 5%-Water (250mL Bag) 250 ML 250 MG IV (10:10)
[2024-03-17] MEDS: Scopolamine 1mg/72hr Patch 1 PATCH TD (10:11)
[2024-03-17] MEDS: Ceftriaxone 1 GM/50 ML BAG IV (10:23)
[2024-03-17 11:40] LABS: Bedside Glucose 283 mg/dL (74-106)
[2024-03-17 16:40] LABS: Bedside Glucose 180 mg/dL (74-106)
[2024-03-17 23:05] LABS: Bedside Glucose 177 mg/dL (74-106)
[2024-03-18 03:51] VITALS: BP 184/82; PULSE 94; RESP 18; TEMP 36.7; O2SAT 97
[2024-03-18] MEDS: Pantoprazole Sodium 80 MG in 0.9% Normal Saline (100mL Bag) 80 ML 10 MG CONT INF (03:54)
[2024-03-18 04:00] VITALS: BP 184/82; PULSE 94
[2024-03-18] MEDS: hydrALAZINE 20 MG/ML Vial 10 MG IV (04:00)
[2024-03-18] MEDS: cycloBENZAPRine HCl 10 MG Tablet PO (04:00)
[2024-03-18] MEDS: 0.9% Saline Lock 10 ML Syringe IV ×4 (04:02→16:44)
[2024-03-18 05:33] LABS: Absolute Lymphocyte Count 0.51 X10^3/uL (0.83-4.51); Absolute Neutrophil Count 10.1 X10^3/uL (2.0-7.7); Basophil# 0.02 X10^3/uL; Basophil% 0.2 % (0-1); Eosinophil# 0.01 X10^3/uL; Eosinophils% 0.1 % (0-5); Hematocrit 44.1 % (40-54); Hemoglobin 14.8 g/dL (13.0-16.5); Lymphocyte # 0.51 X10^3/ul (0.83-4.51); Lymphocyte % 4.3 % (19-41); Mean Corp Hgb Conc 33.6 g/dL (32-36); Mean Corpuscular Hgb 29.2 pg (27.0-32.0); Mean Platelet Vol. 9.8 fl (6.2-12.0); Monocyte# 1.09 X10^3/uL; Monocyte% 9.3 % (0-10); NRBC Flagged by Analyzer 0 % (0-5); Neutrophil # 10.06 X10^3/uL (2.7-7.7); Neutrophil % 85.8 % (47-70); POSITIVE DIFFERENTIAL YES; Platelet Count 181 K/mm3 (150-450); RBC Distribution Width CV 12.9 % (11.6-14.6); RBC Distribution Width SD 40.3 fl (35.1-43.9); Red Blood Count 5.07 M/mm3 (4.6-6.2); White Blood Count 11.7 K/mm3 (4.4-11.0)
[2024-03-18 05:56] LABS: ALB/GLOB Ratio 0.9 RATIO (0.9-2.4); AST(SGOT) 33 U/L (15-37); Alanine Aminotransfer ALT/SGPT 26 U/L (16-61); Albumin, Serum 3.6 g/dL (3.2-5.0); Alkaline Phosphatase 101 U/L (45-117); Anion Gap 8 (5-15); BUN 23 mg/dL (7-18); BUN/Creat Ratio 16.4 RATIO (10-20); Calcium,Total 8.9 mg/dL (8.5-10.1); Chloride 102 mmol/L (98-107); EST Glomerular Filtration Rate 56 mL/min (>60); Est Glom Filt Rate - Afr Amer 67 mL/min (>60); Glucose 183 mg/dL (74-106); Potassium 3.6 mmol/L (3.5-5.1); Protein, Total 7.6 g/dL (6.4-8.2); Sodium Level 134 mmol/L (136-145)
[2024-03-18] MEDS: Metoclopramide 10 MG/2 ML Vial IV (06:36)
[2024-03-18] MEDS: Heparin Injection (Vial) 5,000 UNIT/ML VIAL 5000 UNIT SC ×3 (06:37→22:23)
[2024-03-18] MEDS: Insulin Lispro 100 UNIT/ML INSULN.PEN SC ×4 (06:41→22:22)
--- NOTE | 2024-03-18 06:58 | PN.HOSP_ITS ---
Reason for Visit Reason for Visit: Diagnoses Esophagitis, unspecified without bleeding (03/15/24) Nausea with vomiting, unspecified (03/15/24) Subjective Subjective Patient with no acute events overnight per self and per nursing report unfortunately he notes feeling significantly improved than previously. He states that he is been able to take clear liquids and he does not feel nauseous and has not been having any emesis. Discussed plan of care and at this time he is eager for diet transition thus if he tolerates breakfast will transition to fulls. Also discussed we would transition off of a Protonix drip to oral as well as transition Reglan to an oral regimen. Patient denies fevers, chills, nausea, emesis, abdominal pain, chest pain or dyspnea. Objective Data Objective Data Vital Signs: Vital Signs Temp Pulse Resp BP Pulse Ox O2 Del Method 98.1 F 94 18 184/82 H 97 Room Air 03/18/24 03:51 03/18/24 04:00 03/18/24 03:51 03/18/24 04:00 03/18/24 03:51 03/18/24 03:51 Oxygen Delivery Method Room Air Weight: 274 lb 8 oz Body Mass Index (BMI) 35.2 Intake & Output: Intake and Output for Last 24 Hours 03/16/24 03/17/24 03/18/24 23:59 23:59 23:59 Intake Total 3000 / 3000 1705 / 1705 500 / 500 Balance 3000 / 3000 1705 / 1705 500 / 500 Lab / Micro Data 03/18/24 04:51 03/18/24 04:51 Labs: Laboratory Results - last 24 hr 03/17/24 11:02: POC Glucose 283 H 03/17/24 16:03: POC Glucose 180 H 03/17/24 21:37: POC Glucose 177 H 03/18/24 04:51: WBC 11.7 H, RBC 5.07, Hgb 14.8, Hct 44.1, MCV 87.0, MCH 29.2, MCHC 33.6, RDW Std Deviation 40.3, RDW Coeff of Faheem 12.9, Plt Count 181, MPV 9.8, Immature Gran % (Auto) 0.300, Neut % (Auto) 85.8 H, Lymph % (Auto) 4.3 L, Webb % (Auto) 9.3, Eos % (Auto) 0.1, Baso % (Auto) 0.2, Absolute Neuts (auto) 10.1 H, Absolute Lymphs (auto) 0.51 L, Nucleated RBC % 0, Sodium 134 L, Potassium 3.6, Chloride 102, Carbon Dioxide 24.0, Anion Gap 8, BUN 23 H, C reatinine 1.40 H, Estim Creat Clear Calc 82.60, Est GFR (MDRD) Af Amer 67, Est GFR (MDRD) Non-Af 56 L, BUN/Creatinine Ratio 16.4, Glucose 183 H, Calcium 8.9, T otal Bilirubin 1.30 H, AST 33, ALT 26, Alkaline Phosphatase 101, Total Protein 7.6, Albumin 3.6, Globulin 4.0, Albumin/Globulin Ratio 0.9 Micro: Microbiology 03/15/24 17:50 Blood Culture (Wb) - Anticubital Right Blood Culture - Preliminary No growth in 48 hours. 03/15/24 15:54 Urine, Clean Catch Urine Culture - Final Culture exhibits no growth. Physical Exam Narrative Physical Examination: General: Awake, alert, oriented x 3 and cooperative, seated upright in the MS bed, improved appearance from day prior, notes feeling improved and eager for diet. Skin: Normal color, normal turgor, no icterus, no cyanosis. HEENT: AT/NC, EOMI, PERRLA, improved MMM. Lungs: CTA bilaterally, moderate effort, mild decrease BL bases, no rales, ronchi or wheezing. Heart: Regular rate and rhythm; no gallop, rub audible. Abdomen: Soft, NTTP, ND, normalized BS. Extremities: No cyanosis, clubbing, or edema. Neurological: Patient awake, alert, oriented as noted, cognitive function intact; pupils equally reactive to light and accommodation, cranial nerves gross normal, moving all 4 extremities, no focal deficits, strength improving, mildly to moderately globally creased Psychiatric: Affect appears more interactive, less fatigued appearing, no acute evidence of depressive or anxiety feelings. Assessment & Plan Assessment/Plan (1) Esophagitis: PLAN: Plan The patient is a 58 y/o M w/ PMHx: Obesity, HTN, HLD, Diabetes mellitus with chronic R foot diabetic ulcer with cavus deformity of the right foot, Suspected likely CKD stage III unclear type based on GFR trending who presents to the [facility] ED on 03/15/2024 with history of generalized chest burning as well as nausea and emesis primarily dry heaves over the last 3 to 4 days eventually with emesis but now abating with poor oral intake prompting eventual ED evaluation. #1. Intractable nausea and emesis with atypical chest burning suspected secondary to acute esophagitis: Patient admitted to medical surgical floor, 03/16/2024 EGD with evidence of LA grade D esophagitis with bleeding found 20 to 40 cm from the incisors with biopsies taken with a large amount of food residual in the stomach and in the duodenal bulb with recommendation following for clear liquid, azithromycin 500 mg IV x 1, Reglan 10 mg IV every 6, Haldol 5 mg IM every 6 as needed for nausea, Protonix drip for 24 hours. 03/17/2024 given overnight intractable nausea and emesis unfortunately had transition back to ice chips therefore and continued interventions in place per gastroenterology. In addition requested placement of scopolamine patch and Compazine OH trial performed. 03/18/2024 patient overnight with no acute events and improved status, will plan transition to full liquids at lunch and will de-escalate off of IV Lasix to oral regimen as well as transition to oral regimen of Reglan given findings noted on EGD. Will de-escalate and discontinue Haldol. Will continue azithromycin for 1 additional day and then may consider de-escalation off 03/19/2024 especially if continued improvement. If able to transition eventually to a regular diet potential discharge 03/19/2024 with follow-up with gastroenterology. #2. Acute kidney injury on CKD stage potentially III based on most recent 12/03/2019 GFR 57 but unclear subtype: Secondary to GI losses, poor intake. Admission BUN/Cr 34/1.92, prior baseline creatinine noted to be primarily 1.2- 1.4 but has vacillated. Will continue judiciously hydrated, held nephrotoxic medications, 03/18/2024 BUN/creatinine 23/1.40, GFR 56, improved. #3. Nonspecific perinephric stranding, leukocytosis, initial concern for possible infection; however, no obvious UTI and urine culture resulted negative: Will continue to closely monitor, held off on antibiotic therapy, lactic acid improved with IV fluids. #4. Hypertension: Initially nifedipine and ramipril held given poor intake and mildly elevated creatinine. Patient also initially with lower blood pressure but this has since improved. 03/17/2024 added back nifedipine but still held ramipril. 03/18/2024 blood pressure elevated still above goal and given renal function at baseline now we will also add back ramipril. #5. Diabetes mellitus type II: Hold oral home regimen, given poor intake will hold long-acting insulin regimen will continue to monitor for restart, will allow clears now as noted per GI, accu checks w/ ISS. #6. Chronic right diabetic foot ulcer, noninfected with cavus deformity: Patient with no drainage, no periwound erythema, granulation tissue noted, continue dressing changes and wound RN evaluation, offloading, elevation. #7. Hyperlipidemia: We will continue patient home statin therapy. #8. DVT prophylaxis: Heparin Charges/Coding Visit Charges Inpatient E&M: 19988 Subs Hosp L2
[2024-03-18 07:04] LABS: Bedside Glucose 212 mg/dL (74-106)
[2024-03-18 08:15] VITALS: BP 164/87; PULSE 102; RESP 18; TEMP 36.6; O2SAT 97
[2024-03-18] MEDS: Aspirin E.C. 81 MG Tablet PO (08:26)
[2024-03-18] MEDS: NIFEdipine 90 MG Tablet PO (08:26)
[2024-03-18] MEDS: Ascorbic Acid 500 MG Tablet 250 MG PO (08:26)
[2024-03-18] MEDS: Fluticasone 0.05% 1 SPRAY NASAL.SRY 2 SPRAY NASAL (08:26)
[2024-03-18] MEDS: Atorvastatin Calcium 40 MG Tablet PO (08:26)
[2024-03-18] MEDS: Azithromycin 500 MG in Dextrose 5%-Water (250mL Bag) 250 ML 250 MG IV (10:38)
[2024-03-18] MEDS: Ramipril 10 MG Capsule PO (12:36)
[2024-03-18] MEDS: Pantoprazole Sodium 40 MG Tablet PO ×2 (12:36→22:23)
[2024-03-18 12:49] LABS: Bedside Glucose 216 mg/dL (74-106)
[2024-03-18 13:50] VITALS: BP 145/77; PULSE 110; RESP 18; TEMP 36.7; O2SAT 98
[2024-03-18] MEDS: Metoclopramide 10 MG Tablet PO (16:44)
[2024-03-18 19:48] VITALS: BP 158/70; PULSE 109; RESP 18; TEMP 37; O2SAT 97
[2024-03-18 20:01] LABS: Bedside Glucose 208 mg/dL (74-106)
[2024-03-18] MEDS: traZODone 50 MG Tablet PO (22:23)
[2024-03-19 00:29] LABS: Bedside Glucose 225 mg/dL (74-106)
[2024-03-19 03:07] VITALS: BP 170/78; PULSE 106; RESP 18; TEMP 36.8; O2SAT 97
[2024-03-19 03:11] VITALS: BP 170/78; PULSE 106
[2024-03-19] MEDS: hydrALAZINE 20 MG/ML Vial 10 MG IV (03:11)
[2024-03-19] MEDS: Insulin Lispro 100 UNIT/ML INSULN.PEN SC ×2 (06:10→11:30)
[2024-03-19] MEDS: Heparin Injection (Vial) 5,000 UNIT/ML VIAL 5000 UNIT SC (06:11)
[2024-03-19] MEDS: Metoclopramide 10 MG Tablet PO ×2 (06:11→11:31)
[2024-03-19 06:34] LABS: Bedside Glucose 208 mg/dL (74-106)
[2024-03-19 07:12] LABS: Absolute Lymphocyte Count 0.55 X10^3/uL (0.83-4.51); Absolute Neutrophil Count 7.4 X10^3/uL (2.0-7.7); Basophil# 0.02 X10^3/uL; Basophil% 0.2 % (0-1); Eosinophil# 0.01 X10^3/uL; Eosinophils% 0.1 % (0-5); Hematocrit 45.3 % (40-54); Hemoglobin 15.3 g/dL (13.0-16.5); Lymphocyte # 0.55 X10^3/ul (0.83-4.51); Lymphocyte % 6.1 % (19-41); Mean Corp Hgb Conc 33.8 g/dL (32-36); Mean Platelet Vol. 9.6 fl (6.2-12.0); Monocyte# 0.99 X10^3/uL; NRBC Flagged by Analyzer 0 % (0-5); Neutrophil # 7.39 X10^3/uL (2.7-7.7); POSITIVE DIFFERENTIAL YES; Platelet Count 188 K/mm3 (150-450); RBC Distribution Width CV 12.9 % (11.6-14.6); RBC Distribution Width SD 39.9 fl (35.1-43.9); Red Blood Count 5.27 M/mm3 (4.6-6.2)
[2024-03-19 07:32] LABS: ALB/GLOB Ratio 0.9 RATIO (0.9-2.4); AST(SGOT) 25 U/L (15-37); Alanine Aminotransfer ALT/SGPT 26 U/L (16-61); Albumin, Serum 3.5 g/dL (3.2-5.0); Alkaline Phosphatase 97 U/L (45-117); Anion Gap 8 (5-15); BUN 30 mg/dL (7-18); BUN/Creat Ratio 19.9 RATIO (10-20); Calcium,Total 8.8 mg/dL (8.5-10.1); Chloride 101 mmol/L (98-107); Creatinine, Serum 1.51 mg/dL (0.70-1.30); EST Glomerular Filtration Rate 51 mL/min (>60); Est Glom Filt Rate - Afr Amer 62 mL/min (>60); Estimated Creatinine Clearance 76.59 ml/min; Globulin 3.7 g/dL (2.2-4.2); Glucose 198 mg/dL (74-106); Potassium 3.4 mmol/L (3.5-5.1); Protein, Total 7.2 g/dL (6.4-8.2); Sodium Level 135 mmol/L (136-145)
[2024-03-19 08:00] VITALS: BP 155/88; PULSE 108; RESP 18; TEMP 36.8; O2SAT 98
[2024-03-19 09:28] VITALS: RESP 18
[2024-03-19] MEDS: Azithromycin 500 MG in Dextrose 5%-Water (250mL Bag) 250 ML 250 MG IV (10:15)
[2024-03-19] MEDS: 0.9% Saline Lock 10 ML Syringe IV (10:15)
[2024-03-19] MEDS: Ascorbic Acid 500 MG Tablet 250 MG PO (10:16)
[2024-03-19] MEDS: NIFEdipine 90 MG Tablet PO (10:16)
[2024-03-19] MEDS: Fluticasone 0.05% 1 SPRAY NASAL.SRY 2 SPRAY NASAL (10:16)
[2024-03-19] MEDS: Aspirin E.C. 81 MG Tablet PO (10:16)
[2024-03-19] MEDS: Pantoprazole Sodium 40 MG Tablet PO (10:17)
[2024-03-19] MEDS: Atorvastatin Calcium 40 MG Tablet PO (10:17)
[2024-03-19] MEDS: Ramipril 10 MG Capsule PO (10:17)
--- NOTE | 2024-03-19 12:52 | DCINST_ITS ---
Discharge Instructions Diet Discharge Diet: 1800 Calorie Control Diet Activity Discharge Activity: Return to Normal Activity Weight Bearing Status: Full weight bearing Follow Up Care Test Results: Test results from this visit will be discussed in further detail at your follow- up appointment, if applicable. Discharge Plan Admission Admit Date/Time: 03/15/24 15:18 Primary Reason for Your Visit: Esophagitis Attending Provider: Daniel Khoury Primary Care Provider: Gerald Tee Consulting Providers: Leena Mena; Freya Moreno Discharge Orders/Prescriptions Prescriptions: New metoclopramide HCl 10 mg Tablet 10 mg PO TIDAC Qty: 90 0RF pantoprazole 40 mg Tablet,Delayed Release (Dr/Ec) 40 mg PO BID Qty: 60 0RF ondansetron HCl 4 mg tablet 4 mg PO Q6H PRN (Reason: nausea and vomiting) Qty: 14 0RF Continued ramipril 10 MG capsule 10 mg PO DAILY aspirin 81 MG tablet,delayed release (DR/EC) 81 mg PO DAILY atorvastatin 40 mg tablet 40 mg PO DAILY nifedipine 90 mg tablet extended release 24hr 90 mg PO DAILY insulin aspart U-100 100 unit/mL (3 mL) insulin pen 8 unit subcut TIDCM Rx Instructions: INJECT 8 UNITS PLUS SLIDING SCALE BEFORE MEALS. TOTAL OF UP TO 14 UNITS THREE TIMES A DAY WITH MEALS. Trulicity 4.5 mg/0.5 mL pen injector 4.5 mg subcut ENCINAS cyclobenzaprine 10 mg tablet 10 mg PO TID PRN (Reason: MUSCLE SPASMS ) fluticasone propionate [Allergy Relief (fluticasone)] 50 mcg/actuation spray,suspension 2 spray intranasal DAILY Rx Instructions: administer into each nostril gabapentin 100 mg capsule 100 mg PO TID PRN (Reason: JOINT/LOWER BACK PAIN ) tadalafil 20 mg tablet 20 mg PO DAILY PRN (Reason: ERECTILE DYSFUNCTION ) Vitamin C 100 mg tablet 100 mg PO DAILY Changed insulin glargine [Lantus Solostar U-100 Insulin] 100 unit/mL (3 mL) insulin pen 20 unit subcut QHS Qty: 1 0RF Rx Instructions: Start on 03/20/2024 Discontinued diphenhydramine HCl 25 MG tablet 25 mg PO DAILY PRN (Reason: ALLERGY) dicyclomine 10 mg capsule 10 mg PO BID PRN (Reason: DIARRHEA ) naproxen [Naprosyn] 500 mg tablet 500 mg PO BID PRN (Reason: PAIN/INFLAMMATION ) Referrals / Follow Up: Gerald Tee DO [Primary Care Provider] - Friend,DO Brad [Med Staff - Active Staff] - Within 1 Month (call for appointment) Disposition Disposition (needs filled in before D/C Order can be placed): Home, Self Care
--- NOTE | 2024-03-19 13:11 | PCM.DC.SUM ---
Providers Date of Admission: 03/15/24 Date of Discharge: 03/19/24 Primary Care Physician: Dr. Gerald Tee, DO Consultations 03/15/24 16:12 Consult: Onc/Wound/academic advisement director Routine Comment: Reason for Consult:: r diabetic foot ulcer 03/15/24 17:47 Consult: Gastroenterology Routine Consulting Provider: [facility] Reason for Consult: intractable n/v EMERGENT Consult: No MD Notified: Yes Date Notified: 03/15/24 Time Notified: 17:57 Method of Notification: Text Reason For Visit: INTRACTABLE N/V, ROSALIO Diagnosis Discharge Diagnosis (1) Esophagitis: Status: Acute Code(s): K20.90 - Esophagitis, unspecified without bleeding Plan 1. Acute severe esophagitis #2 intractable nausea and vomiting secondary to acute esophagitis #3 acute kidney injury on a backdrop of chronic kidney disease stage IIIa #4 essential hypertension #5 type 2 diabetes #6 chronic right neuropathic ulceration Medications at Discharge Home Medications ramipril 10 mg capsule 10 mg PO DAILY BLOOD PRESSURE 10/01/14 aspirin 81 mg tablet,delayed release 81 mg PO DAILY HEART HEALTH 04/29/17 ascorbic acid (vitamin C) 100 mg tablet (Vitamin C) 100 mg PO DAILY SUPPLEMENT 03/15/24 atorvastatin 40 mg tablet 40 mg PO DAILY CHOLESTEROL 03/15/24 cyclobenzaprine 10 mg tablet 10 mg PO TID PRN MUSCLE SPASMS 03/15/24 dulaglutide 4.5 mg/0.5 mL subcutaneous pen injector (Trulicity) 4.5 mg subcut ENCINAS DIABETES 03/15/24 fluticasone propionate 50 mcg/actuation nasal spray,suspension (Allergy Relief (fluticasone)) 2 spray intranasal DAILY ALLERGIES 03/15/24 gabapentin 100 mg capsule 100 mg PO TID PRN JOINT/LOWER BACK PAIN 03/15/24 insulin aspart U-100 100 unit/mL (3 mL) subcutaneous pen 8 unit subcut TIDCM DIABETES 03/15/24 nifedipine 90 mg tablet,extended release 24 hr 90 mg PO DAILY HEART/BLOOD PRESSURE 03/15/24 tadalafil 20 mg tablet 20 mg PO DAILY PRN ERECTILE DYSFUNCTION 03/15/24 insulin glargine 100 unit/mL (3 mL) subcutaneous pen (Lantus Solostar U-100 Insulin) 20 unit (0.2 mL) subcut QHS DIABETES #1 mL 03/19/24 metoclopramide HCl 10 mg tablet 10 mg PO TIDAC #90 tabs 03/19/24 ondansetron HCl 4 mg tablet 4 mg PO Q6H PRN nausea and vomiting #14 tabs 03/19/24 pantoprazole 40 mg tablet,delayed release 40 mg PO BID #60 tabs 03/19/24 Hospital Course Operations None Procedures EGD Summary of Care Provided Minutes Spent on Discharge: 31 Hospital Course: This 58-year-old white male was seen in the emergency room at [facility] due to concerns for nausea, vomiting, and a burning sensation in his lower chest. Patient had also been complaining of heartburn symptoms and dry heaves at times. Workup in the emergency room included a chemistry panel which showed a BUN of 34 and a creatinine of 1.92, patient was suspected to have acute kidney injury. CT of the abdomen showed some mild perinephric stranding but otherwise was unremarkable. Patient received Zofran, Reglan, Haldol, and Pepcid and was still having significant nausea and inability to tolerate p.o. intake, patient was then admitted to [place] [id number] for further care. Patient was given some IV fluids, antiemetics, and was placed on IV PPI. He was seen in consultation by gastroenterology who performed an EGD which showed grade D esophagitis with some bleeding. Patient's medical status improved over the next several days, on 03/19/2024, patient was seen and examined: On examination he appeared in good health and spirits. Vital signs as documented. Skin warm and dry and without overt rashes. Neck without JVD, neck was supple, trachea midline, thyroid was normal. Lungs clear bilaterally, normal air movement was noted. Heart exam notable for regular rhythm, normal sounds and absence of murmurs, rubs or gallops. Abdomen unremarkable and without evidence of organomegaly, masses, or abdominal aortic enlargement. Bowel sounds are present, abdomen is not distended. Extremities nonedematous, no cyanosis was noted, no clubbing was noted. Neuro: Cranial nerves II through XII are grossly intact, no focal motor deficits were noted, sensation to light touch and pinprick intact, motor exam 5/5 throughout. Psych: Patient is alert and oriented x3, he does not appear anxious or depressed, he does not appear agitated. Patient appears stable for discharge home on 03/19/2024. Weight / BMI Weight Weight: 124.511 kg Body Mass Index (BMI) 35.2 ABG / Lab / Microbiology Data 03/19/24 06:26 03/19/24 06:26 Laboratory: Laboratory Results - last 24 hr 03/18/24 16:07: POC Glucose 208 H 03/18/24 22:20: POC Glucose 225 H 03/19/24 06:08: POC Glucose 208 H 03/19/24 06:26: WBC 9.0, RBC 5.27, Hgb 15.3, Hct 45.3, MCV 86.0, MCH 29.0, MCHC 33.8, RDW Std Deviation 39.9, RDW Coeff of Faheem 12.9, Plt Count 188, MPV 9.6, Immature Gran % (Auto) 0.600, Neut % (Auto) 82.0 H, Lymph % (Auto) 6.1 L, Woodson % (Auto) 11.0 H, Eos % (Auto) 0.1, Baso % (Auto) 0.2, Absolute Neuts (auto) 7.4, Absolute Lymphs (auto) 0.55 L, Nucleated RBC % 0, Sodium 135 L, Potassium 3.4 L, Chloride 101, Carbon Dioxide 26.0, Anion Gap 8, BUN 30 H, Creatinine 1.51 H, Estim Creat Clear Calc 76.59, Est GFR (MDRD) Af Amer 62, Est GFR (MDRD) Non-Af 51 L, BUN/Creatinine Ratio 19.9, Glucose 198 H, Calcium 8.8, Total Bilirubin 1.20 H, AST 25, ALT 26, Alkaline Phosphatase 97, Total Protein 7.2, Albumin 3.5, Globulin 3.7, Albumin/Globulin Ratio 0.9 Microbiology: Microbiology 03/15/24 17:50 Blood Culture (Wb) - Anticubital Right Blood Culture - Preliminary No growth in 48 hours. 03/15/24 15:54 Urine, Clean Catch Urine Culture - Final Culture exhibits no growth. D/C Instructions Discharge Diet: 1800 Calorie Control Diet Weight Bearing Status: Full weight bearing Meaningful Use Info Meaningful Use Meaningful Use Diagnoses (Choose all that apply): None applicable Ischemic Stroke Statin Dosing Therapy Reference: STATIN DOSE THERAPY REFERENCE: * Patients > 75 years receive moderate or high dose statin therapy. * Patients 75 years or YOUNGER should receive HIGH intensity statin dose unless contraindicated. You will be required to document reason for non-treatment if statin daily dose does not meet guidelines. HIGH DOSE STATIN THERAPY DAILY Atorvastatin > than or = to 40 mg Rosuvastatin > than or = to 20 mg Amlodipine + Atorvastatin > than or = to 2.5/40 mg Ezetimibe + Simvastatin 10/80 mg Simvastatin 80mg Discharge Plan Admission Admit Date/Time: 03/15/24 15:18 Primary Reason for Your Visit: Esophagitis Attending Provider: Daniel Khoury Primary Care Provider: Gerald Tee Consulting Providers: Leena Mena; Freya Moreno Instructions Additional Instructions / Restrictions: Avoid taking any Naprosyn, Aleve, Advil, or additional aspirin other than 81 mg daily due to these medicines causing irritation to the gastrointestinal tract Tylenol or narcotics (if prescribed)-these will not cause inflammation Discharge Orders/Prescriptions Prescriptions: New metoclopramide HCl 10 mg Tablet 10 mg PO TIDAC Qty: 90 0RF pantoprazole 40 mg Tablet,Delayed Release (Dr/Ec) 40 mg PO BID Qty: 60 0RF ondansetron HCl 4 mg tablet 4 mg PO Q6H PRN (Reason: nausea and vomiting) Qty: 14 0RF Continued ramipril 10 MG capsule 10 mg PO DAILY aspirin 81 MG tablet,delayed release (DR/EC) 81 mg PO DAILY atorvastatin 40 mg tablet 40 mg PO DAILY nifedipine 90 mg tablet extended release 24hr 90 mg PO DAILY insulin aspart U-100 100 unit/mL (3 mL) insulin pen 8 unit subcut TIDCM Rx Instructions: INJECT 8 UNITS PLUS SLIDING SCALE BEFORE MEALS. TOTAL OF UP TO 14 UNITS THREE TIMES A DAY WITH MEALS. Trulicity 4.5 mg/0.5 mL pen injector 4.5 mg subcut ENCINAS cyclobenzaprine 10 mg tablet 10 mg PO TID PRN (Reason: MUSCLE SPASMS ) fluticasone propionate [Allergy Relief (fluticasone)] 50 mcg/actuation spray,suspension 2 spray intranasal DAILY Rx Instructions: administer into each nostril gabapentin 100 mg capsule 100 mg PO TID PRN (Reason: JOINT/LOWER BACK PAIN ) tadalafil 20 mg tablet 20 mg PO DAILY PRN (Reason: ERECTILE DYSFUNCTION ) Vitamin C 100 mg tablet 100 mg PO DAILY Changed insulin glargine [Lantus Solostar U-100 Insulin] 100 unit/mL (3 mL) insulin pen 20 unit subcut QHS Qty: 1 0RF Rx Instructions: Start on 03/20/2024 Discontinued diphenhydramine HCl 25 MG tablet 25 mg PO DAILY PRN (Reason: ALLERGY) dicyclomine 10 mg capsule 10 mg PO BID PRN (Reason: DIARRHEA ) naproxen [Naprosyn] 500 mg tablet 500 mg PO BID PRN (Reason: PAIN/INFLAMMATION ) Referrals / Follow Up: Gerald Tee DO [Primary Care Provider] - 03/27/24 10:00 am Brad Riley DO [Med Staff - Active Staff] - 04/18/24 10:30 am () Disposition Disposition (needs filled in before D/C Order can be placed): Home, Self Care Charges/Coding Visit Charges Inpatient E&M: 10626 Disch Hosp >30min
--- NOTE | 2024-03-19 13:40 | CASEMGMT ---
RN CM into pt room, pt up in chair in no distress. Pt seen ambulating halls earlier. Pt denies any homegoing needs. Pt states he does have a foot wound that he dresses daily without difficulty. Pt ready for dc.
[2024-03-19 14:28] VITALS: BP 145/66; PULSE 98; RESP 18; TEMP 37.1; O2SAT 98
--- NOTE | 2024-03-19 14:51 | PHA.DC.MC.R ---
Pharmacy [facility] Pharmacy Service has performed discharge medication reconciliation and counseling for this patient. 1. METOCLOPRAMIDE 10MG PO TIDAC 2. ONDANSETRON 4MG PO Q6H PRN NAUSEA/VOMITING 3. PANTOPRAZOLE 40MG PO BID The patient's discharge medication list was reviewed for discrepancies and discrepancies were resolved. The patient was counseled on the following discharge medications and changes in medications for homegoing were reviewed. The Reason for Use, instructions for use, and potential side effects were reviewed for all new medications. The patient's questions regarding all of their medications were answered. The patient was able to verbally demonstrate an understanding of their discharge medications. Patient counseled by pharmacy stock clerk, Sebas. Medications at Discharge Home Medications ramipril 10 mg capsule 10 mg PO DAILY BLOOD PRESSURE 10/01/14 aspirin 81 mg tablet,delayed release 81 mg PO DAILY HEART HEALTH 04/29/17 ascorbic acid (vitamin C) 100 mg tablet (Vitamin C) 100 mg PO DAILY SUPPLEMENT 03/15/24 atorvastatin 40 mg tablet 40 mg PO DAILY CHOLESTEROL 03/15/24 cyclobenzaprine 10 mg tablet 10 mg PO TID PRN MUSCLE SPASMS 03/15/24 dulaglutide 4.5 mg/0.5 mL subcutaneous pen injector (Trulicity) 4.5 mg subcut ENCINAS DIABETES 03/15/24 fluticasone propionate 50 mcg/actuation nasal spray,suspension (Allergy Relief (fluticasone)) 2 spray intranasal DAILY ALLERGIES 03/15/24 gabapentin 100 mg capsule 100 mg PO TID PRN JOINT/LOWER BACK PAIN 03/15/24 insulin aspart U-100 100 unit/mL (3 mL) subcutaneous pen 8 unit subcut TIDCM DIABETES 03/15/24 nifedipine 90 mg tablet,extended release 24 hr 90 mg PO DAILY HEART/BLOOD PRESSURE 03/15/24 tadalafil 20 mg tablet 20 mg PO DAILY PRN ERECTILE DYSFUNCTION 03/15/24 insulin glargine 100 unit/mL (3 mL) subcutaneous pen (Lantus Solostar U-100 Insulin) 20 unit (0.2 mL) subcut QHS DIABETES #1 mL 03/19/24 metoclopramide HCl 10 mg tablet 10 mg PO TIDAC #90 tabs 03/19/24 ondansetron HCl 4 mg tablet 4 mg PO Q6H PRN nausea and vomiting #14 tabs 03/19/24 pantoprazole 40 mg tablet,delayed release 40 mg PO BID #60 tabs 03/19/24
[2024-03-19 16:28] LABS: Bedside Glucose 291 mg/dL (74-106)
== END 2024-03-19 14:33 | disposition home or self-care (01) | DRG 243 ==
LOC: ED 13:00 → MS3 15:58
PROVIDERS: Family Medicine; Internal Medicine Gastroenterology; Admitting Provider Internal Medicine; Emergency Provider Emergency Medicine; PCP Student in an Organized Health Care Education/Training Program; Visit Provider Internal Medicine
PROC: 0DJ08ZZ Inspection of Upper Intestinal Tract, Via Natural or Artificial Opening Endoscopic (ICD-10-PCS; CPT 43235; principal; 2024-03-16 14:40)
DX: K20.81 Other esophagitis with bleeding (principal); N17.9 Acute kidney failure, unspecified; E11.22 Type 2 diabetes mellitus with diabetic chronic kidney disease; N18.30 Chronic kidney disease, stage 3 unspecified; I12.9 Hypertensive chronic kidney disease with stage 1 through stage 4 chronic kidney disease, or unspecified chronic kidney disease; E66.9 Obesity, unspecified; E11.621 Type 2 diabetes mellitus with foot ulcer; R11.2 Nausea with vomiting, unspecified; E86.0 Dehydration; Z79.4 Long term (current) use of insulin; L97.519 Non-pressure chronic ulcer of other part of right foot with unspecified severity; E78.5 Hyperlipidemia, unspecified; E11.65 Type 2 diabetes mellitus with hyperglycemia; E11.43 Type 2 diabetes mellitus with diabetic autonomic (poly)neuropathy; K31.84 Gastroparesis; E11.42 Type 2 diabetes mellitus with diabetic polyneuropathy; Z79.85 Long-term (current) use of injectable non-insulin antidiabetic drugs; R07.9 Chest pain, unspecified; Z68.35 Body mass index [BMI] 35.0-35.9, adult; Z79.02 Long term (current) use of antithrombotics/antiplatelets; Z79.899 Other long term (current) drug therapy; Z88.5 Allergy status to narcotic agent; Z88.6 Allergy status to analgesic agent; Z87.81 Personal history of (healed) traumatic fracture
CPT/HCPCS: 36415; 71045; 74176; 80048; 80053; 80076; 80307; 81001; 82962; 83605; 83690; 83735; 84100; 84443; 84484; 85025; 87040; 87086; 88305; 88312; 93005; 97162; 97166; 99284; A4216; J2405

== ENCOUNTER 2024-05-18 21:10 | Emergency (ER) | payer MEDICAID, SELFPAY ==
[2024-05-18 21:11] VITALS: BP 199/85; PULSE 109; RESP 18; TEMP 36.6; O2SAT 98; BMI 34.8
[2024-05-18 21:26] VITALS: O2SAT 98
[2024-05-18 21:30] VITALS: BP 166/81; PULSE 99
--- NOTE | 2024-05-18 21:38 | ED.RN ---
Patient states his SOB has resolved and his is feeling anxious. Patient states he had a hyperventilating episode at home prior to coming to ER.
--- NOTE | 2024-05-18 21:40 | RAD_ITS ---
INDICATION: chest pain EXAMINATION/TECHNIQUE: X-RAY - XR Chest 2 Views COMPARISON: 03/15/2024 FINDINGS: LINES/DEVICES: None. LUNGS: No consolidation, edema or effusion. No pneumothorax. MEDIASTINUM AND CARDIOVASCULAR STRUCTURES: Cardiac silhouette not enlarged. Central airways and mediastinal contour are unremarkable. BONES AND SOFT TISSUES: No acute findings. RAD/Chest PA and Lateral IMPRESSION: No radiographic evidence of acute cardiopulmonary disease. Electronically Signed: Akbar Borrego MD at 22:10 EST ,
--- NOTE | 2024-05-18 21:43 | ED.VIS.DYS ---
HPI History of Present Illness Chief Complaint: Shortness of Breath Informant: patient and friend Narrative Narrative: Patient here with his friend for evaluation transient dyspnea. He is watching the football game. He states recently found to have heart murmur with treatment of his diabetic foot. Currently off antibiotics. Wound care. Follow-up echocardiogram today for his murmur. He had results on his phone 1+ pulmonic valve insufficiency. No other abnormalities. He states he felt anxious with breathing fast which is resolved. His recent cold mild cough has resolved. Currently feels back to normal. Prior similar symptoms: Yes PFSH [facility] Medical History Anxiety Cavus deformity of right foot Chronic neck and back pain Limb weakness unexplained bruising Knee pain Diarrhea Hay fever Diabetes Arthritis Hypertension Incisional hernia, with obstruction, without gangrene Obesity Hypertension History of seizures as a child Type II diabetes mellitus Home Medications ?Medication ?Instructions ?Recorded ?Last Taken ?Type ramipril 10 mg capsule 10 mg PO DAILY BLOOD PRESSURE 10/01/14 05/06/17 07:00 History aspirin 81 mg tablet,delayed 81 mg PO DAILY HEART HEALTH 04/29/17 Unknown History release atorvastatin 40 mg tablet 40 mg PO DAILY CHOLESTEROL 03/15/24 Unknown History cyclobenzaprine 10 mg tablet 10 mg PO TID PRN MUSCLE SPASMS 03/15/24 Unknown History dulaglutide 4.5 mg/0.5 mL 4.5 mg subcut ENCINAS DIABETES 03/15/24 Unknown History subcutaneous pen injector (Trulicity) fluticasone propionate 50 2 spray intranasal DAILY ALLERGIES 03/15/24 Unknown History mcg/actuation nasal spray,suspension (Allergy Relief (fluticasone)) gabapentin 100 mg capsule 100 mg PO TID PRN JOINT/LOWER BACK 03/15/24 Unknown History PAIN insulin aspart U-100 100 unit/mL 8 unit subcut TIDCM DIABETES 03/15/24 Unknown History (3 mL) subcutaneous pen nifedipine 90 mg tablet,extended 90 mg PO DAILY HEART/BLOOD PRESSURE 03/15/24 Unknown History release 24 hr tadalafil 20 mg tablet 20 mg PO DAILY PRN ERECTILE 03/15/24 Unknown History DYSFUNCTION insulin glargine 100 unit/mL (3 20 unit (0.2 mL) subcut QHS 03/19/24 Unknown Rx mL) subcutaneous pen (Lantus DIABETES #1 mL Solostar U-100 Insulin) ondansetron HCl 4 mg tablet 4 mg PO Q6H PRN nausea and 03/19/24 Unknown Rx vomiting #14 tabs metoclopramide HCl 10 mg tablet 10 mg PO TIDAC #90 tabs 04/18/24 Unknown Rx pantoprazole 40 mg tablet,delayed 40 mg PO BID #60 tabs 04/18/24 Unknown Rx release buspirone 5 mg tablet 5 mg PO TID 05/18/24 05/14/24 History Allergy/AdvReac Type Severity Reaction Status Date / Time acetaminophen (From Percocet) AdvReac Nausea Verified 05/18/24 21:14 oxycodone (From Percocet) AdvReac Nausea Verified 05/18/24 21:14 Surgical History H/O ventral hernia repair S/P ORIF (open reduction internal fixation) fracture Social History housing: apartment Smoking Status: Never smoker alcohol intake: current alcohol intake frequency: holidays/special occasions only ROS ROS ED Constitutional Constitutional ED: Denies chills, fever(s) or sweats ENT ENT ED: Denies sore throat Cardiovascular Cardiovascular: Denies chest pain, leg edema, palpitations or racing heartbeat Respiratory/Chest Respiratory/Chest: Reports cough and dyspnea; Denies dyspnea on exertion Gastrointestinal Gastrointestinal: Denies abdominal pain, diarrhea, nausea or vomiting Genitourinary Genitourinary ED: Denies dysuria, hematuria or urinary frequency Musculoskeletal Musculoskeletal: Denies back pain, extremity pain or neck pain Integumentary Denies rash or wounds Neurologic Neurologic: Denies headache(s), paresthesias or weakness EXAM Physical Exam Const Vital Signs: 05/18/24 21:11 05/18/24 21:26 05/18/24 21:30 Temperature 97.9 F Temperature Source Oral Pulse Rate 109 H 99 Respiratory Rate 18 Respiratory Effort Normal Non-Labored Respiratory Depth Normal Respiratory Pattern Normal Blood Pressure 199/85 H 166/81 H Blood Pressure Mean 123 109 Pulse Ox 98 Oxygen Delivery Method Room Air Room Air 05/18/24 22:47 Temperature 97.9 F Temperature Source Pulse Rate 99 Respiratory Rate 18 Respiratory Effort Respiratory Depth Respiratory Pattern Blood Pressure 166/81 H Blood Pressure Mean 109 Pulse Ox 98 Oxygen Delivery Method Positive well nourished and well developed General Appearance ED: well developed and NAD HEENT Reports moist mucous membranes normocephalic and atraumatic Eyes General Eye ED: Yes normal appearance of both eyes Neck full ROM Chest Wall Chest: Negative for tenderness Resp normal respiratory effort and normal air movement Effort and Inspection: symmetric chest movement; Negative for respiratory distress Cardio regular rate, regular rhythm and no murmurs Peripheral Pulses: pulses 2+ throughout GI normal to inspection, nondistended, normoactive bowel sounds and non-tender Palpation: Negative for guarding or rebound tenderness present Extremity normal to inspection General Extremety ED: Negative for edema or tenderness General Extremity: Negative for edema Neuro oriented x3 and no sensory deficits noted Sensorium / Orientation: awake and alert MDM MDM MDM Narrative Medical decision making narrative: Interventions / MDM: Differential diagnosis: Anxiety reaction Diagnosis considered but do not suspect: Pneumonia however chest x-ray negative. My EKG interpretation: N/A Imaging independently reviewed and interpreted by myself: 2 view chest x-ray: No acute process. External documents reviewed: N/A Test considered but not ordered:N/A ED course: Vital stable, asymptomatic my evaluation. He had a anxiety attack. Two-view chest x-ray ordered due to recent cough dyspnea results are negative. Reassured. Reevaluation symptom-free. Monitor symptoms return precautions otherwise outpatient follow-up with his PCP. All questions were answered. Re-evaluation: stable Disposition discussed with patient/family/significant other: Patient Case discussed with consulting clinician: N/A This note was generated with Codoon dictation software. It may contain incorrect words, spelling, and punctuation that were not noted in checking the note before signing. Radiography Diagnostic Testing: Clinical Impression(s) from Imaging Studies Chest X-Ray 05/18/24 21:40 IMPRESSION: No radiographic evidence of acute cardiopulmonary disease. Electronically Signed: Akbar Borrego MD at 22:10 EST , Discharge Plan Triage Chief Complaint: Shortness of Breath ED Provider: Marques Norris Dx/Rx/DC Orders Clinical Impression: Anxiety attack, Cough Instructions: Anxiety Disorders Tx Prescriptions: No Action pantoprazole 40 mg tablet,delayed release (DR/EC) 40 mg PO BID Qty: 60 0RF metoclopramide HCl 10 mg tablet 10 mg PO TIDAC Qty: 90 0RF ramipril 10 MG capsule 10 mg PO DAILY aspirin 81 MG tablet,delayed release (DR/EC) 81 mg PO DAILY buspirone 5 mg tablet 5 mg PO TID atorvastatin 40 mg tablet 40 mg PO DAILY nifedipine 90 mg tablet extended release 24hr 90 mg PO DAILY insulin aspart U-100 100 unit/mL (3 mL) insulin pen 8 unit subcut TIDCM Rx Instructions: INJECT 8 UNITS PLUS SLIDING SCALE BEFORE MEALS. TOTAL OF UP TO 14 UNITS THREE TIMES A DAY WITH MEALS. Trulicity 4.5 mg/0.5 mL pen injector 4.5 mg subcut ENCINAS cyclobenzaprine 10 mg tablet 10 mg PO TID PRN (Reason: MUSCLE SPASMS ) fluticasone propionate [Allergy Relief (fluticasone)] 50 mcg/actuation spray,suspension 2 spray intranasal DAILY Rx Instructions: administer into each nostril gabapentin 100 mg capsule 100 mg PO TID PRN (Reason: JOINT/LOWER BACK PAIN ) tadalafil 20 mg tablet 20 mg PO DAILY PRN (Reason: ERECTILE DYSFUNCTION ) ondansetron HCl 4 mg tablet 4 mg PO Q6H PRN (Reason: nausea and vomiting) Qty: 14 0RF insulin glargine [Lantus Solostar U-100 Insulin] 100 unit/mL (3 mL) insulin pen 20 unit subcut QHS Qty: 1 0RF Rx Instructions: Start on 03/20/2024 Primary Care Provider: Gerald Tee Referrals: Gerald Tee DO [Primary Care Provider] - 1 Week Activity Restrictions/Additional Instructions: Symptoms resolved in the ED. Chest x-ray negative. Monitor symptoms reoccurs worsen return for reevaluation otherwise follow-up with your doctor. Print Language: Chilean Disposition Disposition: Home, Self Care Discharge Date/Time: 05/18/24 22:59
--- NOTE | 2024-05-18 21:44 | ED.RN ---
Patient transported to xray
[2024-05-18 22:47] VITALS: BP 166/81; PULSE 99; RESP 18; TEMP 36.6; O2SAT 98
== END 2024-05-18 22:59 | disposition home or self-care (01) ==
PROVIDERS: Emergency Provider Emergency Medicine; PCP Student in an Organized Health Care Education/Training Program; Visit Provider Emergency Medicine
DX: F41.0 Panic disorder [episodic paroxysmal anxiety] (principal); E11.9 Type 2 diabetes mellitus without complications; Z79.4 Long term (current) use of insulin; I10 Essential (primary) hypertension; R05.1 Acute cough; Z79.82 Long term (current) use of aspirin; Z79.85 Long-term (current) use of injectable non-insulin antidiabetic drugs; Z79.899 Other long term (current) drug therapy
CPT/HCPCS: 71046; 99282

== ENCOUNTER 2024-08-16 12:15 | Inpatient (IN) | payer MEDICAID, SELFPAY ==
[2024-08-16] VITALS (10 sets, daily range): BP systolic 106–149; BP diastolic 54–99; PULSE 87–141; RESP 19–46; TEMP 36.9–39.2; O2SAT 92–99; BMI 36.5; BMI 36.1
--- NOTE | 2024-08-16 12:32 | RAD_ITS ---
EXAM: XR Right Foot Complete, 3 or More Views CLINICAL INDICATION: INFECTION TECHNIQUE: Frontal, lateral and oblique views of the right foot. COMPARISON: No relevant prior studies available. 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 Cortical haziness of the margins. Osteomyelitis can not be excluded. No acute fracture. No dislocation. SOFT TISSUES: Soft tissue swelling. No radiopaque foreign body. 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 Cortical haziness of the margins. Osteomyel itis can not be excluded. Reading Location: [facility]
--- NOTE | 2024-08-16 12:32 | EKG12_ITS ---
Test Reason : CP Blood Pressure : */* mmHG Vent. Rate : 145 BPM Atrial Rate : 145 BPM P-R Int : 140 ms QRS Dur : 68 ms QT Int : 266 ms P-R-T Axes : 42 -57 49 degrees QTcB Int : 413 ms Critical Test Result: High HR Sinus tachycardia Left axis deviation Low voltage QRS Inferior infarct , age undetermined Possible Anterolateral infarct , age undetermined Abnormal ECG Poor tracing-artifact Confirmed by Alpesh Cochran ([id number]), map editor RUPAL SANCHEZ ([id number]) on 08/20/2024 6:40:09 AM Referred By: ROLNADO/BESS Confirmed By: Alpesh Cochran
--- NOTE | 2024-08-16 12:32 | RAD_ITS ---
EXAM: XR Chest, 1 View CLINICAL INDICATION: FEVER AND COUGH TECHNIQUE: Frontal view of the chest. COMPARISON: No relevant prior studies available. FINDINGS: LUNGS AND PLEURAL SPACES: Bibasilar atelectasis or pneumonia. No pneumothorax. HEART: Unremarkable. No cardiomegaly. MEDIASTINUM: Unremarkable. Normal mediastinal contour. BONES/JOINTS: Unremarkable. No acute fracture. RAD/Chest 1 View (Portable) IMPRESSION: Bibasilar atelectasis or pneumonia. [facility]
[2024-08-16 12:57] LABS: Absolute Lymphocyte Count 0.74 X10^3/uL (0.83-4.51); Basophil# 0.08 X10^3/uL; Eosinophil# 0.06 X10^3/uL; Eosinophils% 0.7 % (0-5); Hematocrit 46.1 % (40-54); Hemoglobin 15.2 g/dL (13.0-16.5); Lymphocyte # 0.74 X10^3/ul (0.83-4.51); Lymphocyte % 8.8 % (19-41); Mean Corpuscular Hgb 28.4 pg (27.0-32.0); Mean Corpuscular Volume 86.2 fL (80-94); Mean Platelet Vol. 9.9 fl (6.2-12.0); Monocyte# 0.46 X10^3/uL; Monocyte% 5.5 % (0-10); NRBC Flagged by Analyzer 0 % (0-5); Neutrophil # 6.99 X10^3/uL (2.7-7.7); Platelet Count 250 K/mm3 (150-450); RBC Distribution Width CV 12.8 % (11.6-14.6); RBC Distribution Width SD 40.1 fl (35.1-43.9); Red Blood Count 5.35 M/mm3 (4.6-6.2); White Blood Count 8.4 K/mm3 (4.4-11.0)
[2024-08-16 13:00] LABS: International Normalized Ratio 1.2
[2024-08-16] MEDS: 0.9% Normal Saline (1000mL) 1,000 ML 999 ML IV ×2 (13:00→13:44)
[2024-08-16] MEDS: Acetaminophen 500 MG Tablet 1000 MG PO (13:00)
[2024-08-16 13:01] LABS: Partial Thromboplast Time 28.6 Seconds (24.1-36.2)
[2024-08-16] MEDS: Ondansetron 4 MG/2 ML Vial IV (13:01)
[2024-08-16 13:36] LABS: ALB/GLOB Ratio 0.8 RATIO (0.9-2.4); AST(SGOT) 32 U/L (<=37); Alanine Aminotransfer ALT/SGPT 25 U/L (<=46); Albumin, Serum 3.8 g/dL (3.5-5.0); Alkaline Phosphatase 117 U/L (40-129); Anion Gap 20 (5-15); BUN 29 mg/dL (4-19); BUN/Creat Ratio 14.9 RATIO (10-20); Calcium,Total 9.8 mg/dL (7.6-11.0); Carbon Dioxide 16.6 mmol/L (21.0-32.0); Chloride 97 mmol/L (98-108); Creatinine, Serum 1.93 mg/dL (0.70-1.20); EST Glomerular Filtration Rate 40 (>60); Globulin 4.5 g/dL (2.2-4.2); Glucose 170 mg/dL (70-99); Potassium 4.6 mmol/L (3.3-5.1); Protein, Total 8.3 g/dL (5.9-8.4); Sodium Level 134 mmol/L (133-145); Total Bilirubin 0.77 mg/dL (0.00-1.30); Troponin T High Sensitivity 18 ng/L (<=22)
[2024-08-16] MEDS: 0.9% Normal Saline (1000mL) 1,000 ML 200 ML IV (13:44)
[2024-08-16 13:56] LABS: Lactic Acid 4.5 mmol/L (0.0-2.0)
--- NOTE | 2024-08-16 14:23 | EDS_ITS ---
HPI History of Present Illness Chief Complaint: Shortness of Breath Informant: patient Narrative Narrative: 59-year-old male presenting to the emergency room with sweating and weakness. Patient goes several week history of feeling generally weak. He notes a slight cough which is unchanged. He does note some rhinorrhea. He denies vomiting or diarrhea but notes nausea. Endorse chronic wounds to the right foot. He states that he sees podiatry [place]. He states that his right foot appears unchanged from normal. He denies any abdominal pain. He denies any rashes. He states that last night he felt worse than other nights. He was going to see his doctor today but diverted to the ED based on how poorly he was feeling. He notes some generalized myalgias. He notes he is feeling more fatigued with exertion over the past several weeks but felt that that was more due to deconditioning. [facility] Medical History Anxiety Cavus deformity of right foot Chronic neck and back pain Limb weakness unexplained bruising Knee pain Diarrhea Hay fever Diabetes Arthritis Hypertension Incisional hernia, with obstruction, without gangrene Obesity Hypertension History of seizures as a child Type II diabetes mellitus Home Medications ?Medication ?Instructions ?Recorded ?Last Taken ?Type ramipril 10 mg capsule 10 mg PO DAILY BLOOD PRESSUR E 10/01/14 05/06/17 07:00 History atorvastatin 40 mg tablet 40 mg PO DAILY CHOLESTEROL 1 05/15/23 Unknown History cyclobenzaprine 10 mg tablet 10 mg PO TID PRN MUSCLE S PASMS 03/15/24 Unknown History fluticasone propionate 50 2 spray intranasal DAILY ALL ERGIES 03/15/24 Unknown History mcg/actuation nasal spray,suspension (Allergy Relief (fluticasone)) insulin aspart U-100 100 unit/mL 8 unit subcut TIDCM D IABETES 03/15/24 Unknown History (3 mL) subcutaneous pen nifedipine 90 mg tablet,extended 90 mg PO DAILY HEART/ BLOOD PRESSURE 03/15/24 Unknown History release 24 hr tadalafil 20 mg tablet 20 mg PO DAILY PRN ERECTILE 03/15/24 Unknown History DYSFUNCTION insulin glargine 100 unit/mL (3 20 unit (0.2 mL) subcu t QHS 03/19/24 Unknown Rx mL) subcutaneous pen (Lantus DIABETES #1 mL Solostar U-100 Insulin) Allergy/AdvReac Type Severity Reaction Status Date / Time codeine Allergy Mild Hives Verified 08/16/24 12:21 dulaglutide (From Trulicity) Allergy hives Verified 08/16/24 13:06 acetaminophen (From Percocet) AdvReac Nausea Verified 08/16/24 12:21 oxycodone (From Percocet) AdvReac Nausea Verified 08/16/24 12:21 Surgical History H/O ventral hernia repair S/P ORIF (open reduction internal fixation) fracture Social History housing: apartment Smoking Status: Never smoker alcohol intake: current alcohol intake frequency: holidays/special occasions only ROS ROS ED Constitutional Constitutional ED: Reports chills and sweats; Denies fever(s) or weight loss Eyes Eyes: Denies change in vision or diplopia ENT ENT ED: Denies ear pain, rhinorrhea or sore throat Cardiovascular Cardiovascular: Denies chest pain, orthopnea, palpitations or racing heartbeat Respiratory/Chest Respiratory/Chest: Reports cough; Denies dyspnea or orthopnea Gastrointestinal Gastrointestinal: Reports nausea; Denies abdominal pain, diarrhea or vomiting Genitourinary Genitourinary ED: Denies dysuria, hematuria or urinary frequency Musculoskeletal Musculoskeletal: Denies arthralgias or myalgias Integumentary Reports other Details: Chronic wounds of the feet ; Denies abscess or rash Neurologic Neurologic: Denies headache(s) or weakness Psychiatric Psychiatric: Denies anxiety, depression, suicidal ideation or suicidal thoughts Endocrine Endocrinology: Denies polydipsia, polyphagia or polyuria Allergic/Immunologic Allergic/Immunologic ED: Denies mouth swelling, tongue swelling or urticaria EXAM Physical Exam Const Vital Signs: 08/16/24 12:16 08/16/24 12:19 08/16/24 13:02 Temperature 102.5 F H 102.5 F H Temperature Source Axillary Axillary Pulse Rate 141 H 140 H Respiratory Rate 30 H 30 H Respiratory Effort Labored Respiratory Depth Shallow Respiratory Pattern Tachypnea Blood Pressure 148/80 H 148/80 H Blood Pressure Mean 102 102 Pulse Ox 98 97 Oxygen Delivery Method Room Air Room Air Room Air 08/16/24 13:19 08/16/24 13:49 08/16/24 14:00 Temperature 102.6 F H 101.2 F H 101.2 F H Temperature Source Oral Oral Oral Pulse Rate 117 H 113 H 109 H Respiratory Rate 23 H 38 H 26 H Respiratory Effort Respiratory Depth Respiratory Pattern Blood Pressure 148/63 H 149/60 H 136/66 H Blood Pressure Mean 91 89 89 Pulse Ox 98 97 99 Oxygen Delivery Method Room Air Room Air 08/16/24 15:08 08/16/24 15:08 Temperature 99.8 F H Temperature Source Temporal Pulse Rate 110 H 111 H Respiratory Rate 46 H Respiratory Effort Respiratory Depth Respiratory Pattern Blood Pressure 124/54 H 124/54 H Blood Pressure Mean 77 77 Pulse Ox 96 Oxygen Delivery Method Positive well nourished, well developed and obese General Appearance ED: well developed and NAD Nutritional Appearance: obese HEENT Reports normocephalic, head/scalp atraumatic and moist mucous membranes Eyes PERRL and EOMs intact bilaterally Neck no lymphadenopathy, supple and no JVD Resp normal respiratory effort and clear to auscultation bilaterally Cardio regular rate, regular rhythm and no murmurs Rate: tachycardic GI normal to inspection, nondistended, normoactive bowel sounds and non-tender Palpation: soft Back/Spine no CVA tenderness and normal ROM Extremity normal to inspection General Extremety ED: Negative for edema General Extremity: Negative for edema Neuro oriented x3 and CN's II-XII intact bilaterally Sensorium / Orientation: alert Motor Exam: strength 5/5 throughout Psych mental status grossly normal Mood & Affect: Negative for depressed or tearful Skin no rashes or lesions noted Skin Narrative: Right foot demonstrates chronic wounds/diabetic ulcers with exposed fat. There are some serosanguineous seepage from the wounds. I do not appreciate significant erythema or lymphangitic streaking. MDM MDM MDM Narrative Medical decision making narrative: Differential diagnosis includes but not limited to viral syndrome dehydration pneumonia bacteremia diabetic foot infection sepsis Patient's white count is 8.4 hemoglobin 15.2 platelet count of 250. INR is 1.2 lactic acid is 4.5. Glucose of 170 creatinine 1.93 with a BUN of 29 troponin 18 EKG sinus tachycardia. My independent interpretation of the chest x-ray is no acute process. Plan for interpretation of the plain films of the right foot is soft tissue swelling with soft tissue defect status post metatarsal amputation. No definitive osteomyelitis or gas formation. Blood cultures and urine cultures were obtained. Patient received Tylenol and IV fluids as well as vancomycin and Zosyn. COVID influenza RSV swabs were negative. ESR and sed rate will be added on. I will put in for MRI. Plan of care will be admission. Patient was updated with plan of care and the above results. He has not developed any new symptoms. History & Record Review Discussion w/independent historian: Patient Lab Data Attestation: I reviewed the patient's lab results. Labs: Laboratory Results - last 24 hr 08/16/24 08/16/24 08/16/24 12:10 14:11 14:50 WBC 8.4 RBC 5.35 Hgb 15.2 Hct 46.1 MCV 86.2 MCH 28.4 MCHC 33.0 RDW Std Deviation 40.1 RDW Coeff of Faheem 12.8 Plt Count 250 MPV 9.9 Immature Gran % (Auto) 1.000 H Neut % (Auto) 83.0 H Lymph % (Auto) 8.8 L [place] % (Auto) 5.5 Eos % (Auto) 0.7 Baso % (Auto) 1.0 Absolute Neuts (auto) 7.0 Absolute Lymphs (auto) 0.74 L Nucleated RBC % 0 PT 15.0 H INR 1.2 APTT 28.6 Sodium 134 Potassium 4.6 Chloride 97 L Carbon Dioxide 16.6 L Anion Gap 20 H BUN 29 H Creatinine 1.93 H Estim Creat Clear Calc 60.30 Est GFR (MDRD) Non-Af 40 L BUN/Creatinine Ratio 14.9 Glucose 170 H Lactic Acid 4.5 H* Calcium 9.8 Total Bilirubin 0.77 AST 32 ALT 25 Alkaline Phosphatase 117 Troponin T High Sens 18 Troponin T Hi Sens 2 Hr 31 H Total Protein 8.3 Albumin 3.8 Globulin 4.5 H Albumin/Globulin Ratio 0.8 L Urine Color Yellow Urine Clarity Clear Urine pH 6.0 Ur Specific [place] 1.015 Urine Protein 30 H Urine Glucose (UA) 100 H Urine Ketones 15 H Urine Occult Blood 10 H Urine Nitrite Negative Urine Bilirubin Negative Urine Urobilinogen Normal Ur Leukocyte Esterase Negative Urine RBC 0-5 SEEN Urine WBC 0-5 SEEN Ur Squamous Epith Cells 0 SEEN Urine Bacteria 0 SEEN Urine Mucus 0 SEEN Radiography Diagnostic Testing: Clinical Impression(s) from Imaging Studies Chest X-Ray 08/16/24 12:32 IMPRESSION: Bibasilar atelectasis or pneumonia. Reading Location: [facility] Foot X-Ray 08/16/24 12:32 IMPRESSION: Amputation of the 5th metatarsal. Cortical haziness of the margins. Osteomyelitis can not be excluded. Reading Location: [facility] EKG Initial EKG: Attestation: I personally reviewed and interpreted this EKG as follows: Comments: Sinus tachycardia ventricular rate of 145 bpm. Management Discussion w/another healthcare provider: Hospitalist (Dr Ruelas) Discharge Plan Triage Chief Complaint: Shortness of Breath ED Provider: Richi Esposito Dx/Rx/DC Orders Prescriptions: No Action ramipril 10 MG capsule 10 mg PO DAILY atorvastatin 40 mg tablet 40 mg PO DAILY nifedipine 90 mg tablet extended release 24hr 90 mg PO DAILY insulin aspart U-100 100 unit/mL (3 mL) insulin pen 8 unit subcut TIDCM Rx Instructions: INJECT 8 UNITS PLUS SLIDING SCALE BEFORE MEALS. TOTAL OF UP TO 14 UNITS THREE TIMES A DAY WITH MEALS. cyclobenzaprine 10 mg tablet 10 mg PO TID PRN (Reason: MUSCLE SPASMS ) fluticasone propionate [Allergy Relief (fluticasone)] 50 mcg/actuation spray,suspension 2 spray intranasal DAILY Rx Instructions: administer into each nostril tadalafil 20 mg tablet 20 mg PO DAILY PRN (Reason: ERECTILE DYSFUNCTION ) insulin glargine [Lantus Solostar U-100 Insulin] 100 unit/mL (3 mL) insulin pen 20 unit subcut QHS Qty: 1 0RF Rx Instructions: Start on 03/20/2024 Primary Care Provider: Gerald Tee Referrals: Gerald Tee DO [Primary Care Provider] - Print Language: Swazi
[2024-08-16 14:56] LABS: Troponin T High Sens 2 HR 31 ng/L (<=22)
[2024-08-16 15:04] LABS: Bacteria 0 SEEN /hpf (None Seen); Mucous, Urine 0 SEEN /hpf (<or=2+); Squamous Epithelial Cells - UA 0 SEEN /hpf (0-5)
[2024-08-16] MEDS: Piperacil/Tazobactam 4.5 GM in 0.9% Normal Saline (100mL MB+) 100 ML IV (15:05)
[2024-08-16 15:07] LABS: Color, Urine Yellow (Yellow); Glucose, Dipstick 100 mg/dl (Normal); Ketone-Dipstick 15 mg/dl (Negative); Leukocyte Esterase-Dipstick Negative /ul (Negative); Nitrite-Dipstick Negative (Negative); Occult Blood-Urine 10 /ul (Negative); Protein-Dipstick 30 mg/dl (Negative); Specific Gravity, Urine 1.015 (1.002-1.030); Urine Bilirubin Dipstick Negative (Negative); Urine Clarity Clear (Clear); Urine Urobilinogen Normal (Normal)
[2024-08-16 15:20] LABS: White Blood Cells 0-5 SEEN /hpf (0-5)
[2024-08-16 15:21] LABS: Red Blood Cells-Urine 0-5 SEEN /hpf (0-5)
--- NOTE | 2024-08-16 15:31 | MRI_ITS ---
EXAM: MRI right ankle without and with IV contrast CLINICAL HISTORY: Pain, osteomyelitis COMPARISON: None TECHNIQUE: Multisequence multiplanar MR images of the right ankle were obtained before and after the administration of intravenous contrast. 25 mL of Clariscan intravenous contrast was administered. Imaging sequences were performed to best displaced suspected pathology. FINDINGS: Peripherally enhancing fluid collection/ulcer along the plantar base of the 5th metatarsal soft tissues measuring 31 x 13 x 17 mm (AP, TV and CC dimensions) extending to the bone. Mild T1 marrow replacement at the base of the 5th metatarsal with associated enhancement over a 2.5 cm length concerning for osteomyelitis. Amputation of the 5th digit at the level of the mid metatarsal. Chronic fracture deformity of the lateral talar process without bone marrow edema. Achilles tendon is intact. Visualized flexor tendons, peroneal tendons and extensor tendons are intact. Medial and lateral ankle ligaments are intact. Mild scattered degenerative changes throughout the midfoot and hindfoot. No acute fracture or joint effusion. Plantar fascia is within normal limits. Severe diffuse muscle atrophy and edema which may relate to denervation. Generalized subcutaneous edema. MRI/Lower Ext No Joint W/WO Cont IMPRESSION: 1. Acute osteomyelitis at the base of the 5th metatarsal with subjacent abscess /ulcer as above. 2. Additional chronic/incidental findings as above. Reading Location: [facility]
[2024-08-16] MEDS: Vancomycin HCl 2,000 MG in 0.9% Normal Saline (500mL Bag) 500 ML 250 MG IV (15:46)
--- NOTE | 2024-08-16 15:48 | PCM.HP.STD ---
HPI - General General Date of Admission: 08/16/24 HPI Narrative SHERRI CROWE, is a 59 M who presents to the hospital for not feeling well and feels fatigued over the last couple of weeks. He has not noticed fevers at home. He was found to be tachycardic and febrile. He has no obvious source initially of infection, he does have some redness around the chronic lower extremity wound on his right foot. He has a history of the fifth ray resection and the x-ray of the foot demonstrates possible osteomyelitis was started on vancomycin and Zosyn. UTI and chest x-ray are also unremarkable and he denies any shortness of breath or cough. The viral studies are negative. Blood cultures were obtained in the ER. Otherwise based on lab work he does not appear to be septic, his bicarb is low at 16.6 however because of our analyzer's this is likely normal. [facility] Medical History Anxiety Cavus deformity of right foot Chronic neck and back pain Limb weakness unexplained bruising Knee pain Diarrhea Hay fever Diabetes Arthritis Hypertension Incisional hernia, with obstruction, without gangrene Obesity Hypertension History of seizures as a child Type II diabetes mellitus Home Medications ?Medication ?Instructions ?Recorded ?Last Taken ?Type ramipril 10 mg capsule 10 mg PO DAILY BLOOD PRESSURE 10/01/14 05/06/17 07:00 History atorvastatin 40 mg tablet 40 mg PO DAILY CHOLESTEROL 03/15/24 Unknown History cyclobenzaprine 10 mg tablet 10 mg PO TID PRN MUSCLE SPASMS 03/15/24 Unknown History fluticasone propionate 50 2 spray intranasal DAILY ALLERGIES 03/15/24 Unknown History mcg/actuation nasal spray,suspension (Allergy Relief (fluticasone)) insulin aspart U-100 100 unit/mL 8 unit subcut TIDCM DIABETES 03/15/24 Unknown History (3 mL) subcutaneous pen nifedipine 90 mg tablet,extended 90 mg PO DAILY HEART/BLOOD PRESSURE 03/15/24 Unknown History release 24 hr tadalafil 20 mg tablet 20 mg PO DAILY PRN ERECTILE 03/15/24 Unknown History DYSFUNCTION insulin glargine 100 unit/mL (3 20 unit (0.2 mL) subcut QHS 03/19/24 Unknown Rx mL) subcutaneous pen (Lantus DIABETES #1 mL Solostar U-100 Insulin) Allergy/AdvReac Type Severity Reaction Status Date / Time codeine Allergy Mild Hives Verified 08/16/24 12:21 dulaglutide (From Trulicity) Allergy hives Verified 08/16/24 13:06 acetaminophen (From Percocet) AdvReac Nausea Verified 08/16/24 12:21 oxycodone (From Percocet) AdvReac Nausea Verified 08/16/24 12:21 Family History (Updated 08/16/24 @ 16:[address] Js Ruelas MD) Other Diabetes Heart disease Hypertension Surgical History H/O ventral hernia repair S/P ORIF (open reduction internal fixation) fracture Social History housing: apartment Smoking Status: Never smoker alcohol intake: current alcohol intake frequency: holidays/special occasions only ROS Constitutional Constitutional: Reports fatigue and weakness; Denies chills, fever(s) or malaise Eyes Eyes: Denies blurry vision ENT HEENT: Denies headache(s) or nasal discharge Cardiovascular Cardiovascular: Denies chest pain, dyspnea on exertion or syncope Respiratory/Chest Respiratory/Chest: Denies cough, shortness of breath at rest or shortness of breath with exertion Gastrointestinal Gastrointestinal: Reports nausea; Denies constipation, diarrhea or vomiting Genitourinary Genitourinary: Denies dysuria Integumentary Integumentary: Reports wounds Neurologic Neurologic: Denies focal weakness, numbness or tremor(s) Psychiatric Psychiatric: Denies anxiety or depression Vital Signs Vital Signs Vital Signs: 08/16/24 12:16 08/16/24 12:19 08/16/24 13:02 Temperature 102.5 F H 102.5 F H Temperature Source Axillary Axillary Pulse Rate 141 H 140 H Respiratory Rate 30 H 30 H Respiratory Effort Labored Respiratory Depth Shallow Respiratory Pattern Tachypnea Blood Pressure 148/80 H 148/80 H Blood Pressure Mean 102 102 Pulse Ox 98 97 Oxygen Delivery Method Room Air Room Air Room Air 08/16/24 13:19 08/16/24 13:49 08/16/24 14:00 Temperature 102.6 F H 101.2 F H 101.2 F H Temperature Source Oral Oral Oral Pulse Rate 117 H 113 H 109 H Respiratory Rate 23 H 38 H 26 H Respiratory Effort Respiratory Depth Respiratory Pattern Blood Pressure 148/63 H 149/60 H 136/66 H Blood Pressure Mean 91 89 89 Pulse Ox 98 97 99 Oxygen Delivery Method Room Air Room Air 08/16/24 15:08 08/16/24 15:08 Temperature 99.8 F H Temperature Source Temporal Pulse Rate 110 H 111 H Respiratory Rate 46 H Respiratory Effort Respiratory Depth Respiratory Pattern Blood Pressure 124/54 H 124/54 H Blood Pressure Mean 77 77 Pulse Ox 96 Oxygen Delivery Method Weight Weight: 284 lb 9.868 oz Body Mass Index (BMI) 36.5 Physical Exam Narrative General: Alert, Oriented x3, Cooperative, No apparent distress HEENT: Atraumatic, PERRLA, EOMI, Normocephalic Oral: Moist Mucosa Neck: Supple, No JVD Lungs: Diminished, Normal air movement, No rhonchi, No wheeze, No rales Cardiovascular: Regular rate, Regular Rhythm, Normal S1, Normal S2, No murmurs Abdomen: Soft, Non Tender, Non-Distended, No Hepato-splenomegaly Extremities: No edema, Capillary Refill Less than 3 Seconds Skin: Right lateral foot wound with surrounding erythema and serous drainage Musculoskeletal: No Tenderness to Palpation of Joints or Extremities Neurological: No focal neurological deficits, Motor Exam 5/5 strength throughout, bilateral lower extremity peripheral neuropathy Psych/Mental Status: Normal Affect, Appropriate Results Lab / Micro Data 08/16/24 12:10 08/16/24 12:10 Labs: Laboratory Results - last 24 hr 08/16/24 12:10: WBC 8.4, RBC 5.35, Hgb 15.2, Hct 46.1, MCV 86.2, MCH 28.4, MCHC 33.0, RDW Std Deviation 40.1, RDW Coeff of Faheem 12.8, Plt Count 250, MPV 9.9, Immature Gran % (Auto) 1.000 H, Neut % (Auto) 83.0 H, Lymph % (Auto) 8.8 L, [place] % (Auto) 5.5, Eos % (Auto) 0.7, Baso % (Auto) 1.0, Absolute Neuts (auto) 7.0, Absolute Lymphs (auto) 0.74 L, Nucleated RBC % 0, PT 15.0 H, INR 1.2, APTT 28.6, Sodium 134, Potassium 4.6, Chloride 97 L, Carbon Dioxide 16.6 L, Anion Gap 20 H, BUN 29 H, Creatinine 1.93 H, Estim Creat Clear Calc 60.30, Est GFR (MDRD) Non-Af 40 L, BUN/Creatinine Ratio 14.9, Glucose 170 H, Lactic Acid 4.5 H*, Calcium 9.8, Total Bilirubin 0.77, AST 32, ALT 25, Alkaline Phosphatase 117, Troponin T High Sens 18, Total Protein 8.3, Albumin 3.8, Globulin 4.5 H, Albumin/Globulin Ratio 0.8 L 08/16/24 14:11: Troponin T Hi Sens 2 Hr 31 H 08/16/24 14:50: Urine Color Yellow, Urine Clarity Clear, Urine pH 6.0, Ur Specific [place] 1.015, Urine Protein 30 H, Urine Glucose (UA) 100 H, Urine Ketones 15 H, Urine Occult Blood 10 H, Urine Nitrite Negative, Urine Bilirubin Negative, Urine Urobilinogen Normal, Ur Leukocyte Esterase Negative, Urine RBC 0-5 SEEN, Urine WBC 0-5 SEEN, Ur Squamous Epith Cells 0 SEEN, Urine Bacteria 0 SEEN, Urine Mucus 0 SEEN Micro: Microbiology 08/16/24 12:56 Mucosa - Nose SARS-CoV-2, Influenza & RSV (PCR) - Final Imaging Radiology Impression Chest X-Ray 08/16/24 12:32 IMPRESSION: Bibasilar atelectasis or pneumonia. Reading Location: [facility] Foot X-Ray 08/16/24 12:32 IMPRESSION: Amputation of the 5th metatarsal. Cortical haziness of the margins. Osteomyelitis can not be excluded. Reading Location: [facility] Assessment & Plan Assessment/Plan (1) Diabetic foot infection: PLAN: Plan 1. Diabetic foot infection in the setting of a previous fifth metatarsal resection ? Foot x-ray demonstrates possible osteomyelitis ? Continue with Vanco and Zosyn ? Will obtain an MRI ? Will obtain a CRP and ESR ? 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 He is not complaining of any significant pain and he has fairly significant neuropathy so we will hold off of pain medications at the moment ? He says that he has been moving a lot which has flared up his chronic back pain a little bit ? Will check an A1c and continue with his insulin ? Accu-Cheks ACHS ? Will monitor make adjustments as necessary 2. Essential HTN/HLD ? Will hold his blood pressure medications for the moment while treating his infection can restart in 24 to 48 hours ? Continue with Lipitor ? Will monitor make adjustments as necessary 3. CKD 3 ? It does appear that his creatinine is near baseline of 1.6 ? Continue with some IV fluids and monitor ? Bicarb is 16.6 however based on our analyzer's at this hospital this is likely 5 mmol/L lower than his true value DVT: Heparin 75 minutes was spent on direct patient care, including documentation as well as chart review and collaboration with colleagues Charges/Coding Visit Charges Inpatient E&M: 02380 Init Hosp L3
[2024-08-16 16:44] LABS: Reflex Lactate? Y
[2024-08-16 17:12] LABS: Hemoglobin A1c 7.8 % (<=5.6)
--- NOTE | 2024-08-16 17:53 | ED.RN ---
renea syed patient is in MRI currently and will be moved to the floor MS [id number] after. no further questions
--- NOTE | 2024-08-16 19:52 | PCM.RX.CS ---
Consult Antibiotic Management Pharmacy has been consulted to manage selected antibiotic: Vancomycin Type of Intervention Type of Consult: New start Suspected Infection Suspected Infection: Osteomyelitis Prior Doses of Antibiotics Prior Doses of Antibiotics Received/Current Regimen: Vancomycin 2000 mg IV x 1 given 08/16/24 @ 1215, patient is also on piperacillin/tazobactam 3.375 grams Q8H Labs Labs: Sodium 134 mmol/L (133-145) 08/16/24 12:10 Potassium 4.6 mmol/L (3.3-5.1) 08/16/24 12:10 Chloride 97 mmol/L (98-108) L 08/16/24 12:10 Carbon Dioxide 16.6 mmol/L (21.0-32.0) L 08/16/24 12:10 Anion Gap 20 (5-15) H 08/16/24 12:10 BUN 29 mg/dL (4-19) H 08/16/24 12:10 Creatinine 1.93 mg/dL (0.70-1.20) H 08/16/24 12:10 Est GFR (MDRD) Non-Af 40 (>60) L 08/16/24 12:10 BUN/Creatinine Ratio 14.9 RATIO (10-20) 08/16/24 12:10 Glucose 170 mg/dL (70-99) H 08/16/24 12:10 Microbiology Microbiology: Microbiology 08/16/24 12:56 Mucosa - Nose SARS-CoV-2, Influenza & RSV (PCR) - Final Dosing Weight Weight used for dosin kg Estimated Creatinine Clearance Estimated Creatinine Clearance: ~ 60 Goal Trough Goal Trough: 15-20 mcg/mL Pharmacy Plan for Drug Dosing Pharmacy Plan for Drug Dosing: Vancomycin 2000 mg IV x 1 followed by 1500 mg Q12H Pharmacy Service will continue to monitor and adjust dosing as required. Follow-Up Labs Follow-Up Labs: Trough: Vancomycin Date/Time Labs Ordered Labs to be done on [date and time ordered]: 08/18/24 @ [id number]
[2024-08-16] MEDS: 0.9% Normal Saline (1000mL) 1,000 ML 100 ML IV (20:20)
[2024-08-16] MEDS: 0.9% Saline Lock 10 ML Syringe IV (20:23)
[2024-08-16 20:28] LABS: Troponin T High Sens 4 HR 27 ng/L (<=22)
[2024-08-16 20:32] LABS: Erythrocyte Sedimentation Rate 30 mm/hr (0-20)
[2024-08-16 20:52] LABS: Lactic Acid 1.6 mmol/L (0.0-2.0)
[2024-08-16] MEDS: Piperacil/Tazobactam 3.375 GM in 0.9% Normal Saline (50mL MB+) 50 ML IV (21:49)
[2024-08-16] MEDS: Heparin Injection (Vial) 5,000 UNIT/ML VIAL 5000 UNIT SC (21:51)
[2024-08-16] MEDS: Insulin Glargine-YFGN 100 UNIT/ML Pen 20 UNIT SC (21:59)
[2024-08-16] MEDS: Insulin Lispro 100 UNIT/ML INSULN.PEN SC (22:05)
[2024-08-16 22:40] LABS: Bedside Glucose 191 mg/dL (74-106)
[2024-08-17] MEDS: Ibuprofen 200 MG Tablet PO ×2 (01:16→22:56)
[2024-08-17] MEDS: MELATONIN 3 MG TABLET 6 MG PO ×2 (01:16→22:56)
[2024-08-17 01:57] VITALS: BP 120/69; PULSE 81; RESP 16; TEMP 36.7; O2SAT 96
[2024-08-17] MEDS: Vancomycin HCl 1,500 MG in 0.9% Normal Saline (500mL Bag) 500 ML 250 MG IV ×2 (03:53→17:48)
[2024-08-17 05:20] LABS: Absolute Lymphocyte Count 0.44 X10^3/uL (0.83-4.51); Absolute Neutrophil Count 5.3 X10^3/uL (2.0-7.7); Basophil# 0.02 X10^3/uL; Basophil% 0.3 % (0-1); Eosinophil# 0.03 X10^3/uL; Eosinophils% 0.5 % (0-5); Hemoglobin 10.9 g/dL (13.0-16.5); Lymphocyte # 0.44 X10^3/ul (0.83-4.51); Mean Corpuscular Hgb 28.5 pg (27.0-32.0); Mean Corpuscular Volume 86.2 fL (80-94); Mean Platelet Vol. 9.4 fl (6.2-12.0); Monocyte% 7.9 % (0-10); NRBC Flagged by Analyzer 0 % (0-5); Neutrophil # 5.27 X10^3/uL (2.7-7.7); Neutrophil % 83.8 % (47-70); POSITIVE DIFFERENTIAL YES; Platelet Count 169 K/mm3 (150-450); RBC Distribution Width CV 12.9 % (11.6-14.6); RBC Distribution Width SD 40.6 fl (35.1-43.9); Red Blood Count 3.83 M/mm3 (4.6-6.2); White Blood Count 6.3 K/mm3 (4.4-11.0)
[2024-08-17 05:51] LABS: Anion Gap 11 (5-15); BUN 27 mg/dL (4-19); BUN/Creat Ratio 16.2 RATIO (10-20); Calcium,Total 8.1 mg/dL (7.6-11.0); Carbon Dioxide 17.6 mmol/L (21.0-32.0); Chloride 104 mmol/L (98-108); Creatinine, Serum 1.67 mg/dL (0.70-1.20); EST Glomerular Filtration Rate 47 (>60); Glucose 190 mg/dL (70-99); Potassium 4.6 mmol/L (3.3-5.1); Sodium Level 133 mmol/L (133-145)
[2024-08-17] MEDS: Piperacil/Tazobactam 3.375 GM in 0.9% Normal Saline (50mL MB+) 50 ML IV ×3 (06:01→22:57)
[2024-08-17] MEDS: Heparin Injection (Vial) 5,000 UNIT/ML VIAL 5000 UNIT SC ×3 (06:03→22:56)
[2024-08-17] MEDS: cycloBENZAPRine HCl 10 MG Tablet PO ×2 (06:06→23:26)
[2024-08-17] MEDS: Insulin Lispro 100 UNIT/ML INSULN.PEN SC ×3 (06:19→17:41)
[2024-08-17 06:45] VITALS: BP 128/58; PULSE 87; RESP 16; TEMP 36.3; O2SAT 97
[2024-08-17 06:51] LABS: Bedside Glucose 178 mg/dL (74-106)
--- NOTE | 2024-08-17 07:36 | PN.HOSP_ITS ---
Reason for Visit Reason for Visit: Diagnoses Type 2 diabetes mellitus with other skin complications (08/16/24) Local infection of the skin and subcutaneous tissue, unspecified (08/16/24) Subjective Subjective Has had right foot wound for some time. Objective Data Objective Data Vital Signs: Vital Signs Temp Pulse Resp BP Pulse Ox O2 Del Method 36.3 C L 87 16 128/58 H 97 Room Air 08/17/24 06:45 08/17/24 06:45 08/17/24 06:45 08/17/24 06:45 08/17/24 06:45 08/17/24 06:45 Oxygen Delivery Method Room Air Weight: 127.7 kg Body Mass Index (BMI) 36.1 Intake & Output: Intake and Output for Last 24 Hours 08/15/24 08/16/24 08/17/24 23:59 23:59 23:59 Intake Total 3640 / 3640 1338.33 / 1338.33 Output Total 1125 / 1125 Balance 3640 / 3640 213.33 / 213.33 Lab / Micro Data 08/17/24 04:50 08/17/24 04:50 Labs: Laboratory Results - last 24 hr 08/16/24 12:10: WBC 8.4, RBC 5.35, Hgb 15.2, Hct 46.1, MCV 86.2, MCH 28.4, MCHC 33.0, RDW Std Deviation 40.1, RDW Coeff of Faheem 12.8, Plt Count 250, MPV 9.9, I mmature Gran % (Auto) 1.000 H, Neut % (Auto) 83.0 H, Lymph % (Auto) 8.8 L, [place] % (Auto) 5.5, Eos % (Auto) 0.7, Baso % (Auto) 1.0, Absolute Neuts (auto) 7.0, A bsolute Lymphs (auto) 0.74 L, Nucleated RBC % 0, PT 15.0 H, INR 1.2, APTT 28.6, Sodium 134, Potassium 4.6, Chloride 97 L, Carbon Dioxide 16.6 L, Anion Gap 20 H, BUN 29 H, Creatinine 1.93 H, Estim Creat Clear Calc 60.30, Est GFR (MDRD) Non-Af 40 L, BUN/Creatinine Ratio 14.9, Glucose 170 H, Hemoglobin A1c 7.8, Lactic Acid 4.5 H*, Calcium 9.8, Total Bilirubin 0.77, AST 32, ALT 25, Alkaline Phosphatase 117, Troponin T High Sens 18, Total Protein 8.3, Albumin 3.8, Globulin 4.5 H, A lbumin/Globulin Ratio 0.8 L 08/16/24 14:11: Troponin T Hi Sens 2 Hr 31 H 08/16/24 14:50: Urine Color Yellow, Urine Clarity Clear, Urine pH 6.0, Ur Specific [place] 1.015, Urine Protein 30 H, Urine Glucose (UA) 100 H, Urine Ketones 15 H, Urine Occult Blood 10 H, Urine Nitrite Negative, Urine Bilirubin Negative, Urine Urobilinogen Normal, Ur Leukocyte Esterase Negative, Urine RBC 0-5 SEEN, Urine WBC 0-5 SEEN, Ur Squamous Epith Cells 0 SEEN, Urine Bacteria 0 SEEN, Urine Mucus 0 SEEN 08/16/24 20:00: ESR 30 H, Lactic Acid 1.6, Troponin T Hi Sens 4Hr 27 H, C-React Prot Ext Range 96.30 H 08/16/24 21:59: POC Glucose 191 H 08/17/24 04:50: WBC 6.3, RBC 3.83 L, Hgb 10.9 L, Hct 33.0 L, MCV 86.2, MCH 28.5, MCHC 33.0, RDW Std Deviation 40.6, RDW Coeff of Faheem 12.9, Plt Count 169, MPV 9.4, Immature Gran % (Auto) 0.500, Neut % (Auto) 83.8 H, Lymph % (Auto) 7.0 L, [place] % (Auto) 7.9, Eos % (Auto) 0.5, Baso % (Auto) 0.3, Absolute Neuts (auto) 5.3, Absolute Lymphs (auto) 0.44 L, Nucleated RBC % 0, Sodium 133, Potassium 4.6, Chloride 104, Carbon Dioxide 17.6 L, Anion Gap 11, BUN 27 H, Creatinine 1.67 H, Estim Creat Clear Calc 69.30, Est GFR (MDRD) Non-Af 47 L, BUN/Creatinine Ratio 16.2, Glucose 190 H, Calcium 8.1 08/17/24 06:18: POC Glucose 178 H Micro: Microbiology 08/16/24 12:56 Mucosa - Nose SARS-CoV-2, Influenza & RSV (PCR) - Final Radiography Diagnostic Testing: Radiology Impression Chest X-Ray 08/16/24 12:32 IMPRESSION: Bibasilar atelectasis or pneumonia. Reading Location: [facility] Foot X-Ray 08/16/24 12:32 IMPRESSION: Amputation of the 5th metatarsal. Cortical haziness of the margins. Osteomyelitis can not be excluded. Reading Location: [facility] Physical Exam Const alert and no apparent distress Constitutional Narrative: non-toxic. afebrile. HEENT head/scalp atraumatic and moist oral mucous membranes Resp normal respiratory effort and no retractions Extremity Extremity Narrative: large right lateral foot wound. wound nurse able to probe to bone. Neuro Sensorium / Orientation: awake and alert Assessment & Plan Assessment/Plan (1) Diabetic foot infection: PLAN: MRI showed acute osteomyelitis a the base of sole 5th metatarsal with subjacent abscess/ulcer. VEDA Wound nurse who had discussed with Dr. Zeng (whom the patient was previously seeing) and told her that the patient was fired from the practice due to non-payment. VEDA Joyce who will see the patient in consultation. Will consult ID for long-term abx, but will hold off consulted until 08/19, as ID is off service for the weekend and would not change current mgmt. vanc and pip/tazo Concern for long-term mgmt as pt has poor insight into his condition. (2) Bacteremia: PLAN: GPC in clusters in 2 of 2 sets on 08/16. Will recheck. Concern it may be coming from his foot If repeat Cxs still showing bacteria, he will need a TTE and repeat BCx PLAN: Plan DM2: glargine, prandial and SSI. a1c 7.8 VTE prophylaxis: SQ heparin Charges/Coding Visit Charges Inpatient E&M: 36596 Subs Hosp L2
--- NOTE | 2024-08-17 09:08 | NURSING ---
Bebe Mayer Wound EFRAÍN and Dr. Samaniego here to see wound and change juan.
[2024-08-17] MEDS: Insulin Lispro 100 UNIT/ML INSULN.PEN 8 UNIT SC ×3 (09:10→17:40)
--- NOTE | 2024-08-17 09:20 | NURSING ---
This RN is aware of Vital Signs that were taken by Daphney KENNY this Morning.
--- NOTE | 2024-08-17 09:49 | WOUNDNOTE ---
wound photo: right foot
--- NOTE | 2024-08-17 09:50 | WOUNDNOTE ---
skin photo: right foot
--- NOTE | 2024-08-17 10:32 | CASEMGMT ---
Addendum entered by Yen Mendez 08/17/24 11:36: Handoff given to EFRAÍN LOPEZ MS3. Original Note: EFRAÍN LOPEZ Assessment: Face to Face with pt for initial transition planning/care coordination assessment. EFRAÍN LOPEZ introduced self and role at [facility], pt voices understanding and consents to assessment. Pt is A&O x4 and answers all questions appropriately at this time. Pt lying in bed in no distress. Care providers, pharmacy, and demographics verified/updated. Admitting Dx: possible osteo Strata Score: 3 PCP:Randal Specialists:Sanjuana, pod; Cardio in [place] from [facility] Preferred Pharmacy: [facility] Insurance: [employer] Prescription Benefit: yes LNOK: Molina Baltazar, friend Living Arrangements: Pt lives with mother in a ground level apt with 1 step to enter. 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 Transportation: Pt drives self and denies concerns with transportation. DME:grab bar in bathroom, shower chair, walk in shower, BGM with sufficient supplies of strips and lancets; insulin with sufficient supply and needles, walking boot, crutches HHC/SNF: Pt has had HHC in the past but cannot recall the name. Pt has been to [facility]. Pt states no concerns with going home at time of dc. Pt would like to return home. Pt states that his mother has some dementia and is home alone. He states that she lost her phone and he did not have time to look for it prior to him coming to the hospital. He states he spoke with her lastnight as his niece was with her and he used her phone but his mother likely will not remember that he isn't there. He states he is having a friend of his mother's to stop over and check on her. Encouraged pt to do that soon if she is home alone with no phone. Updated SW. Pt reports he goes to the [facility] every 2 wks. He states that his mother does his wound care or most recently his niece was helping. The [facility] orders supplies that are delivered to pt home. Pt does not know the name of the company. Briefly broached the topic of possible need for IV atb. Pt did not want to discuss this. He states that he plans to get healed and go home. Discussed local DME companies should pt need any DME upon dc, pt chose [employer]. Pt states no further concerns/needs. CM to follow. Advised pt to ask CM if any further questions/concerns/needs arise, voices understanding. Pt Goal: Home Plan: TBD pending course of hospitalization Alice KENNY CM
[2024-08-17 12:06] LABS: Bedside Glucose 245 mg/dL (74-106)
--- NOTE | 2024-08-17 12:55 | CASEMGMT ---
Social Work SW met with pt regarding concerns surrounding his mother. 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 Pt states mother has dementia. Pt previously reported mother lost her phone, but pt states he sent his mother's friend to her home to check on her and they found the phone. Pt states mother is not feeling well and friend is going to take pt to the urgent care. SW inquired if pt's mother is safe at home over the weekend. Pt is unable to answer questions fully. Pt asking for aids to go to pts home and assist mother. SW explained that while this is an option, it cannot be set up today and expected to start over the weekend. SW attempted to discuss respite care, however pt was not expressing understanding of this. Pt stating he will now be able to call pt since she found the phone and he thinks she will be ok over the weekend. SW will follow up with pt for resources. SUJIT Koch
[2024-08-17] MEDS: DAKIN'S SOL HALF STRENGTH (=0.25%) TOPICAL (13:04)
[2024-08-17 13:06] VITALS: BP 144/62; PULSE 90; RESP 16; TEMP 36.7; O2SAT 98
--- NOTE | 2024-08-17 15:24 | CASEMGMT ---
Addendum entered by Dorie Delvalle 08/17/24 15:32: SW met with pt again and pt states a friend will be staying with pt's mother to monitor. SUJIT Jones Original Note: Social Work Pt is reporting pt's mother is now in the ED. Phone call to RODGER Hernandes and updated to the situation and concerns with pt mother being home alone. Ally to assess the patient's safety to return home alone. NATALIA provided pt with list of private duty aids. SUJIT Koch
[2024-08-17 17:25] LABS: Bedside Glucose 171 mg/dL (74-106)
[2024-08-17] MEDS: Juven (unflavored) Packet 1 PACKET PO (17:39)
[2024-08-17 17:51] VITALS: BP 148/79; PULSE 94; RESP 18; TEMP 37.1; O2SAT 97
--- NOTE | 2024-08-17 19:09 | CON.PCM_ITS ---
Assessment & Plan Assessment/Plan (1) Diabetic foot infection: PLAN: Patient currently on IV antibiotics I recommend at this point a full discussion the patient that the only way to help this is whether or not I plan to put a external fixation frame on with weightbearing areas. At the same time would recommend for grafting debridement although this could be done on Tuesday. At the same time the patient is very much confused or somewhat uncertain what the best route someone had told and put him in a total contact cast I told her we cannot do these at the hospital but he can have this done outpatient if he comes in weekly to have this change. He saw another doctor a few weeks ago in [place]. Patient has had a nonhealing ulceration he at this point presented because he was not feeling good he continues to appear to have some nausea. Otherwise his blood sugars have been somewhat poorly controlled he has an A1c of almost 8 he states his blood sugars up in the 190s. Today I recommend offloading with such as nonweightbearing but I do not think the patient will comply therefore an external fixation frame with weightbearing skis would help him in the meantime. I did talk to him in great detail about this with grafting he may consider this I like to get him scheduled for this on Tuesday we will follow-up on Tuesday to ask again and to discuss this further. The only issue with both procedures and/or treatments would that he could not drive on either of them. (2) Cavus deformity of right foot: (3) Type 2 diabetes mellitus with foot ulcer: (4) Type 2 diabetes mellitus with diabetic polyneuropathy: (5) Other specified peripheral vascular diseases: (6) Ulcer of left foot with fat layer exposed: PLAN: Plan Continue IV antibiotics plan for surgical with incision and drainage as well as external fixation frame right lower leg HPI Consult Data Date of Consult: 08/17/24 HPI Narrative Reason for Consultation: Nonhealing ulceration right plantar lateral foot right x 1 year HPI Narrative: SHERRI CROWE, is a 59 M who presents patient states that he has had this wound for at least a year he did have 1/5 metatarsal and digit amputation sometime many years ago which the patient is not really certain of the time he patient is somewhat confused and or has struggle understanding everything that we are talking about. 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 He thinks he can do it with crutches. I am uncertain of that. [facility] Medical History (Updated 08/17/24 @ 19:[address] Allen Joyce MD) Diabetic foot infection Anxiety Cavus deformity of right foot Chronic neck and back pain Limb weakness unexplained bruising Knee pain Diarrhea Hay fever Diabetes Arthritis Hypertension Incisional hernia, with obstruction, without gangrene Obesity Hypertension History of seizures as a child Type II diabetes mellitus Home Medications ?Medication ?Instructions ?Recorded ?Last Taken ?Type ramipril 10 mg capsule 10 mg PO DAILY BLOOD PRESSUR E 10/01/14 05/06/17 07:00 History atorvastatin 40 mg tablet 40 mg PO DAILY CHOLESTEROL 1 05/15/23 Unknown History cyclobenzaprine 10 mg tablet 10 mg PO TID PRN MUSCLE S PASMS 03/15/24 Unknown History insulin aspart U-100 100 unit/mL 8 unit subcut TIDCM D IABETES 03/15/24 Unknown History (3 mL) subcutaneous pen nifedipine 90 mg tablet,extended 90 mg PO DAILY HEART/ BLOOD PRESSURE 03/15/24 Unknown History release 24 hr tadalafil 20 mg tablet 20 mg PO DAILY PRN ERECTILE 03/15/24 Unknown History DYSFUNCTION insulin glargine 100 unit/mL (3 35 unit subcut QHS KENY BETES 08/17/24 Unknown History mL) subcutaneous pen (Lantus Solostar U-100 Insulin) Allergy/AdvReac Type Severity Reaction Status Date / Time codeine Allergy Mild Hives Verified 08/16/24 12:21 dulaglutide (From Trulicity) Allergy hives Verified 08/16/24 13:06 acetaminophen (From Percocet) AdvReac Nausea Verified 08/16/24 12:21 oxycodone (From Percocet) AdvReac Nausea Verified 08/16/24 12:21 Family History (Updated 08/16/24 @ 16:[address] Js Ruelas MD) Other Diabetes Heart disease Hypertension Surgical History H/O ventral hernia repair S/P ORIF (open reduction internal fixation) fracture Social History housing: apartment Smoking Status: Never smoker alcohol intake: current alcohol intake frequency: holidays/special occasions only ROS Constitutional Constitutional: Reports systems reviewed and no addt'l complaints, except as documented Eyes Eyes: Reports systems reviewed and no addt'l complaints, except as documented ENT HEENT: Reports systems reviewed and no addt'l complaints, except as documented Gastrointestinal Gastrointestinal: Reports belching, bloating, dry heaves and nausea Integumentary Integumentary: Reports new lesions and skin ulcer Endocrine Endocrinology: Reports fatigue Physical Exam Narrative Nonhealing ulceration right plantar lateral foot underneath the subfifth metatarsal styloid process with open wound that does probe to bone has necrotic tissue is a large hemorrhagic granular base around the anterior area extends approximately 4 cm in size by 5 cm in size. It is with necrotic center fibrotic tissue and open ulceration. Const alert and oriented x3 HEENT normocephalic Eyes PERRL Cardio Heart Sounds: S1 normal and S2 normal Peripheral Pulses: pulses 2+ throughout Extremity Extremity Narrative: Nonhealing ulceration plantar lateral fifth metatarsal tuberosity with large open wound 5 cm x 4 cm with 1 cm in depth. X-rays were negative except the patient does have a cavovarus foot type with significant forefoot supinated us and contracture. Patient also has a calcaneal varus deformity. Same time he has an open ulceration with drainage x-rays were negative except for the varus deformity the MRI is positive for osteomyelitis of the fifth metatarsal tuberosity with fracture bone changes. With direct contiguous osteomyelitis to the right fifth metatarsal tuberosity. Peripheral Pulses: Yes pulses 2+ throughout Neuro Neuro Narrative: Peripheral neuropathy bilateral. Sensory Exam: sensory level loss detected Lab / Micro Data 08/17/24 04:50 08/17/24 04:50 Labs: Laboratory Results - last 24 hr 08/16/24 20:00: ESR 30 H, Lactic Acid 1.6, Troponin T Hi Sens 4Hr 27 H, C-React Prot Ext Range 96.30 H 08/16/24 21:59: POC Glucose 191 H 08/17/24 04:50: WBC 6.3, RBC 3.83 L, Hgb 10.9 L, Hct 33.0 L, MCV 86.2, MCH 28.5, MCHC 33.0, RDW Std Deviation 40.6, RDW Coeff of Faheem 12.9, Plt Count 169, MPV 9.4, Immature Gran % (Auto) 0.500, Neut % (Auto) 83.8 H, Lymph % (Auto) 7.0 L, [place] % (Auto) 7.9, Eos % (Auto) 0.5, Baso % (Auto) 0.3, Absolute Neuts (auto) 5.3, Absolute Lymphs (auto) 0.44 L, Nucleated RBC % 0, Sodium 133, Potassium 4.6, Chloride 104, Carbon Dioxide 17.6 L, Anion Gap 11, BUN 27 H, Creatinine 1.67 H, Estim Creat Clear Calc 69.30, Est GFR (MDRD) Non-Af 47 L, BUN/Creatinine Ratio 16.2, Glucose 190 H, Calcium 8.1 08/17/24 06:18: POC Glucose 178 H 08/17/24 11:24: POC Glucose 245 H 08/17/24 17:07: POC Glucose 171 H Micro: Microbiology 08/17/24 09:20 Wound - Right Foot Gram Stain - Final 08/16/24 12:53 Blood Culture (Wb) - Right Wrist Blood Culture - Preliminary 08/16/24 12:53 Blood Culture (Wb) - Right Wrist Bacteria Detection (PCR) - Final Strep not Strep pneumo 08/16/24 12:53 Blood Culture (Wb) - Right Wrist Blood Culture - Preliminary 08/16/24 14:50 Urine, Clean Catch Urine Culture - Preliminary Culture exhibits no growth. Imaging Radiology Impression Lower Extremity MRI 08/16/24 15:31 IMPRESSION: 1. Acute osteomyelitis at the base of the 5th metatarsal with subjacent abscess/ulcer as above. 2. Additional chronic/incidental findings as above. Reading Location: [facility]
[2024-08-17 20:00] VITALS: BP 132/60; PULSE 75; RESP 16; TEMP 36.7; O2SAT 98
[2024-08-17 22:49] VITALS: BP 166/70; PULSE 89; RESP 22; TEMP 37.1; O2SAT 97
[2024-08-17] MEDS: Insulin Glargine-YFGN 100 UNIT/ML Pen 20 UNIT SC (23:03)
[2024-08-17] MEDS: Ondansetron 4 MG/2 ML Vial IV (23:09)
[2024-08-17 23:24] LABS: Bedside Glucose 132 mg/dL (74-106)
[2024-08-18 02:46] VITALS: BP 138/66; PULSE 76; RESP 24; TEMP 36.7; O2SAT 96
[2024-08-18] MEDS: Piperacil/Tazobactam 3.375 GM in 0.9% Normal Saline (50mL MB+) 50 ML IV ×3 (04:14→21:42)
[2024-08-18] MEDS: Vancomycin HCl 1,500 MG in 0.9% Normal Saline (500mL Bag) 500 ML 250 MG IV ×2 (05:00→17:43)
[2024-08-18] MEDS: Heparin Injection (Vial) 5,000 UNIT/ML VIAL 5000 UNIT SC ×3 (05:00→21:43)
[2024-08-18 07:20] LABS: Absolute Lymphocyte Count 0.89 X10^3/uL (0.83-4.51); Absolute Neutrophil Count 2.6 X10^3/uL (2.0-7.7); Basophil# 0.02 X10^3/uL; Basophil% 0.5 % (0-1); Eosinophil# 0.04 X10^3/uL; Hematocrit 37.3 % (40-54); Hemoglobin 12.2 g/dL (13.0-16.5); Lymphocyte # 0.89 X10^3/ul (0.83-4.51); Lymphocyte % 21.3 % (19-41); Mean Corp Hgb Conc 32.7 g/dL (32-36); Mean Corpuscular Hgb 28.2 pg (27.0-32.0); Mean Corpuscular Volume 86.3 fL (80-94); Mean Platelet Vol. 9.6 fl (6.2-12.0); Monocyte# 0.58 X10^3/uL; Monocyte% 13.9 % (0-10); NRBC Flagged by Analyzer 0 % (0-5); Neutrophil # 2.62 X10^3/uL (2.7-7.7); Neutrophil % 62.8 % (47-70); Platelet Count 185 K/mm3 (150-450); RBC Distribution Width CV 12.6 % (11.6-14.6); RBC Distribution Width SD 40.1 fl (35.1-43.9); Red Blood Count 4.32 M/mm3 (4.6-6.2); White Blood Count 4.2 K/mm3 (4.4-11.0)
[2024-08-18 07:43] LABS: Anion Gap 10 (5-15); BUN 26 mg/dL (4-19); BUN/Creat Ratio 16.7 RATIO (10-20); Calcium,Total 8.6 mg/dL (7.6-11.0); Carbon Dioxide 20.3 mmol/L (21.0-32.0); Chloride 103 mmol/L (98-108); Creatinine, Serum 1.55 mg/dL (0.70-1.20); EST Glomerular Filtration Rate 52 (>60); Estimated Creatinine Clearance 74.67 ml/min (50-250); Glucose 126 mg/dL (70-99); Sodium Level 134 mmol/L (133-145)
[2024-08-18 07:50] VITALS: BP 149/67; PULSE 73; RESP 16; TEMP 36.5; O2SAT 98
[2024-08-18] MEDS: Juven (unflavored) Packet 1 PACKET PO ×2 (07:57→17:43)
--- NOTE | 2024-08-18 08:32 | PCM.PN.HOSP ---
Reason for Visit Reason for Visit: Diagnoses Type 2 diabetes mellitus with diabetic polyneuropathy (08/16/24) Type 2 diabetes mellitus with foot ulcer (08/16/24) Type 2 diabetes mellitus with other skin complications (08/16/24) Other specified peripheral vascular diseases (08/16/24) Local infection of the skin and subcutaneous tissue, unspecified (08/16/24) Non-pressure chronic ulcer of other part of unspecified foot with unspecified severity (08/16/24) Non-pressure chronic ulcer of other part of left foot with fat layer exposed (08/16/24) Congenital pes cavus, right foot (08/16/24) Bacteremia (08/16/24) Subjective Subjective No issues overnight. Objective Data Objective Data Vital Signs: Vital Signs Temp Pulse Resp BP Pulse Ox O2 Del Method 36.5 C L 73 16 149/67 H 98 Room Air 08/18/24 07:50 08/18/24 07:50 08/18/24 07:50 08/18/24 07:50 08/18/24 07:50 08/18/24 07:50 Oxygen Delivery Method Room Air Weight: 127.7 kg Body Mass Index (BMI) 36.1 Intake & Output: Intake and Output for Last 24 Hours 08/16/24 08/17/24 08/18/24 23:59 23:59 23:59 Intake Total 3640 / 3640 3355.00 / 3355.00 625 / 625 Output Total 2625 / 2625 Balance 3640 / 3640 730.00 / 730.00 625 / 625 Lab / Micro Data 08/18/24 03:33 08/18/24 03:33 Labs: Laboratory Results - last 24 hr 08/17/24 11:24: POC Glucose 245 H 08/17/24 17:07: POC Glucose 171 H 08/17/24 23:00: POC Glucose 132 H 08/18/24 03:33: WBC 4.2 L, RBC 4.32 L, Hgb 12.2 L, Hct 37.3 L, MCV 86.3, MCH 28.2, MCHC 32.7, RDW Std Deviation 40.1, RDW Coeff of Faheem 12.6, Plt Count 185, MPV 9.6, Immature Gran % (Auto) 0.500, Neut % (Auto) 62.8, Lymph % (Auto) 21.3, [place] % (Auto) 13.9 H, Eos % (Auto) 1.0, Baso % (Auto) 0.5, Absolute Neuts (auto) 2.6, Absolute Lymphs (auto) 0.89, Nucleated RBC % 0, Sodium 134, Potassium 4.0, Chloride 103, Carbon Dioxide 20.3 L, Anion Gap 10, BUN 26 H, Creatinine 1.55 H, Estim Creat Clear Calc 74.67, Est GFR (MDRD) Non-Af 52 L, BUN/Creatinine Ratio 16.7, Glucose 126 H, Calcium 8.6 Micro: Microbiology 08/16/24 14:50 Urine, Clean Catch Urine Culture - Final Culture exhibits no growth. 08/17/24 09:20 Wound - Right Foot Gram Stain - Final 08/16/24 12:53 Blood Culture (Wb) - Right Wrist Blood Culture - Preliminary 08/16/24 12:53 Blood Culture (Wb) - Right Wrist Bacteria Detection (PCR) - Final Strep not Strep pneumo 08/16/24 12:53 Blood Culture (Wb) - Right Wrist Blood Culture - Preliminary 08/16/24 12:56 Mucosa - Nose SARS-CoV-2, Influenza & RSV (PCR) - Final Radiography Diagnostic Testing: Radiology Impression Lower Extremity MRI 08/16/24 15:31 IMPRESSION: 1. Acute osteomyelitis at the base of the 5th metatarsal with subjacent abscess/ulcer as above. 2. Additional chronic/incidental findings as above. [facility] Physical Exam Const alert and no apparent distress HEENT head/scalp atraumatic and moist oral mucous membranes Resp normal respiratory effort and no retractions GI normal to inspection, nondistended, normoactive bowel sounds and soft to palpation Extremity Extremity Narrative: right foot wrapped--did not remove. Neuro Sensorium / Orientation: awake and alert Assessment & Plan Assessment/Plan (1) Diabetic foot infection: PLAN: MRI showed acute osteomyelitis a the base of sole 5th metatarsal with subjacent abscess/ulcer. DW Wound nurse who had discussed with Dr. Zeng (whom the patient was previously seeing) and told her that the patient was fired from the practice due to non-payment. Seen by podiatry who discussed debridement and external fixation for 08/20. Will consult ID for long-term abx, but will hold off consulted until 08/19, as ID is off service for the weekend and would not change current mgmt. vanc and pip/tazo Concern for long-term mgmt as pt has poor insight into his condition. (2) Bacteremia: PLAN: Strep, not strep pneumo in 2 of 2 sets on 08/16. Will recheck. Concern it may be coming from his foot If repeat Cxs still showing bacteria, he will need a TTE and repeat BCx PLAN: Plan DM2: glargine, prandial and SSI. a1c 7.8. Fair control at this time. HTN: continue nifedipine VTE prophylaxis: SQ heparin Charges/Coding Visit Charges Inpatient E&M: 63380 Subs Hosp L2
[2024-08-18 08:34] LABS: Bedside Glucose 127 mg/dL (74-106)
[2024-08-18 09:03] LABS: Vancomycin, Trough Level 20.4 ug/mL (5.0-15.0)
[2024-08-18] MEDS: Ramipril 10 MG Capsule PO (10:37)
[2024-08-18] MEDS: NIFEdipine 90 MG Tablet PO (10:37)
[2024-08-18] MEDS: Insulin Lispro 100 UNIT/ML INSULN.PEN 8 UNIT SC ×2 (11:41→18:04)
[2024-08-18] MEDS: Insulin Lispro 100 UNIT/ML INSULN.PEN SC ×3 (11:42→21:51)
[2024-08-18] MEDS: DAKIN'S SOL HALF STRENGTH (=0.25%) TOPICAL (11:45)
[2024-08-18 12:22] LABS: Bedside Glucose 198 mg/dL (74-106)
--- NOTE | 2024-08-18 13:33 | CASEMGMT ---
Social Work As per physician, pt will have surgery on Tuesday, will have an external fixator. SW spoke w/pt about discharge plan, he still would like to go home if possible. SW did provide to pt a list, from [facility], of [facility] facilities in network w/pt's insurance, in pt's preferred geographic area, and complete w/quality and resource use data. SW explained that if it is too difficult to manage at home, we can look into pt going to a SNF for rehab. NATALIA explained the list SW provided are places that take his insurance, should this be needed. Pt more focused at this moment on what kind of pants he can fit over the external fixator. SW/CM will follow up after surgery Tuesday regarding discharge plan. JUANCARLOS Brown
[2024-08-18 14:00] VITALS: BP 131/66; PULSE 68; RESP 19; TEMP 36.7; O2SAT 99
[2024-08-18 18:44] LABS: Bedside Glucose 191 mg/dL (74-106)
--- NOTE | 2024-08-18 19:19 | PCM.RX.CS ---
Consult Antibiotic Management Pharmacy has been consulted to manage selected antibiotic: Vancomycin Type of Intervention Type of Consult: Follow-up Suspected Infection Suspected Infection: Osteomyelitis Labs Labs: Sodium 134 mmol/L (133-145) 08/18/24 03:33 Potassium 4.0 mmol/L (3.3-5.1) 08/18/24 03:33 Chloride 103 mmol/L (98-108) 08/18/24 03:33 Carbon Dioxide 20.3 mmol/L (21.0-32.0) L 08/18/24 03:33 Anion Gap 10 (5-15) 08/18/24 03:33 BUN 26 mg/dL (4-19) H 08/18/24 03:33 Creatinine 1.55 mg/dL (0.70-1.20) H 08/18/24 03:33 Est GFR (MDRD) Non-Af 52 (>60) L 08/18/24 03:33 BUN/Creatinine Ratio 16.7 RATIO (10-20) 08/18/24 03:33 Glucose 126 mg/dL (70-99) H 08/18/24 03:33 Vancomycin Trough 20.4 ug/mL (5.0-15.0) H 08/18/24 03:33 Microbiology Microbiology: Microbiology 08/16/24 12:53 Blood Culture (Wb) - Right Wrist Blood Culture - Preliminary Staphylococcus aureus 08/16/24 12:53 Blood Culture (Wb) - Right Wrist Bacteria Detection (PCR) - Final Strep not Strep pneumo 08/16/24 12:53 Blood Culture (Wb) - Right Wrist Blood Culture - Preliminary Staphylococcus aureus Alpha Hemolytic Streptococcus 08/16/24 14:50 Urine, Clean Catch Urine Culture - Final Culture exhibits no growth. 08/17/24 09:20 Wound - Right Foot Gram Stain - Final 08/16/24 12:56 Mucosa - Nose SARS-CoV-2, Influenza & RSV (PCR) - Final Dosing Weight Weight used for dosin kg Estimated Creatinine Clearance Estimated Creatinine Clearance: 75 Goal Trough Goal Trough: 15-20 mcg/mL Pharmacy Plan for Drug Dosing Pharmacy Plan for Drug Dosing: (fyi- during [employer] downtime). Vancomycin trough level of 20.4 was just above the target range of 15-20. This was drawn just 10hrs post-dose, and renal function is improving (SCr from 1.67 to 1.55), so will continue dosing at 1500mg q12h. Another trough will be drawn in two days. Pharmacy Service will continue to monitor and adjust dosing as required. Follow-Up Labs Follow-Up Labs: Trough: Vancomycin Date/Time Labs Ordered Labs to be done on [date and time ordered]: 08/20/24 @0338
[2024-08-18] MEDS: Atorvastatin Calcium 40 MG Tablet PO (21:43)
[2024-08-18] MEDS: Insulin Glargine-YFGN 100 UNIT/ML Pen 20 UNIT SC (21:51)
[2024-08-18] MEDS: cycloBENZAPRine HCl 10 MG Tablet PO (21:59)
[2024-08-18 22:37] LABS: Bedside Glucose 185 mg/dL (74-106)
[2024-08-19 01:31] VITALS: BP 121/52; PULSE 74; RESP 16; TEMP 36.8; O2SAT 96
[2024-08-19] MEDS: DiphenhydrAMINE 25 MG Capsule 50 MG PO ×2 (01:37→21:54)
[2024-08-19] MEDS: Ibuprofen 400 MG Tablet PO ×2 (01:38→21:54)
[2024-08-19] MEDS: Vancomycin HCl 1,500 MG in 0.9% Normal Saline (500mL Bag) 500 ML 250 MG IV ×2 (04:35→15:53)
[2024-08-19] MEDS: Piperacil/Tazobactam 3.375 GM in 0.9% Normal Saline (50mL MB+) 50 ML IV ×3 (06:02→21:37)
[2024-08-19] MEDS: Heparin Injection (Vial) 5,000 UNIT/ML VIAL 5000 UNIT SC ×3 (06:04→21:38)
[2024-08-19 06:06] LABS: Absolute Lymphocyte Count 1.11 X10^3/uL (0.83-4.51); Absolute Neutrophil Count 2.4 X10^3/uL (2.0-7.7); Basophil# 0.03 X10^3/uL; Basophil% 0.7 % (0-1); Eosinophil# 0.17 X10^3/uL; Eosinophils% 3.9 % (0-5); Hematocrit 37.9 % (40-54); Hemoglobin 12.5 g/dL (13.0-16.5); Lymphocyte # 1.11 X10^3/ul (0.83-4.51); Lymphocyte % 25.2 % (19-41); Mean Corpuscular Hgb 28.1 pg (27.0-32.0); Mean Corpuscular Volume 85.2 fL (80-94); Mean Platelet Vol. 9.5 fl (6.2-12.0); Monocyte# 0.63 X10^3/uL; Monocyte% 14.3 % (0-10); NRBC Flagged by Analyzer 0 % (0-5); Neutrophil # 2.44 X10^3/uL (2.7-7.7); Neutrophil % 55.4 % (47-70); Platelet Count 185 K/mm3 (150-450); RBC Distribution Width CV 12.6 % (11.6-14.6); RBC Distribution Width SD 39.1 fl (35.1-43.9); Red Blood Count 4.45 M/mm3 (4.6-6.2); White Blood Count 4.4 K/mm3 (4.4-11.0)
[2024-08-19 06:59] LABS: Anion Gap 10 (5-15); BUN 26 mg/dL (4-19); BUN/Creat Ratio 16.1 RATIO (10-20); Calcium,Total 8.8 mg/dL (7.6-11.0); Carbon Dioxide 20.5 mmol/L (21.0-32.0); Chloride 104 mmol/L (98-108); Creatinine, Serum 1.58 mg/dL (0.70-1.20); EST Glomerular Filtration Rate 51 (>60); Estimated Creatinine Clearance 73.25 ml/min (50-250); Glucose 153 mg/dL (70-99); Sodium Level 135 mmol/L (133-145)
[2024-08-19 07:20] LABS: Bedside Glucose 157 mg/dL (74-106)
--- NOTE | 2024-08-19 07:28 | PN.HOSP_ITS ---
Reason for Visit Reason for Visit: Diagnoses Type 2 diabetes mellitus with diabetic polyneuropathy (08/16/24) Type 2 diabetes mellitus with foot ulcer (08/16/24) Type 2 diabetes mellitus with other skin complications (08/16/24) Other specified peripheral vascular diseases (08/16/24) Local infection of the skin and subcutaneous tissue, unspecified (08/16/24) Non-pressure chronic ulcer of other part of unspecified foot with unspecified severity (08/16/24) Non-pressure chronic ulcer of other part of left foot with fat layer exposed (08/16/24) Congenital pes cavus, right foot (08/16/24) Bacteremia (08/16/24) Subjective Subjective Feels well. No events overnight. Objective Data Objective Data Vital Signs: Vital Signs Temp Pulse Resp BP Pulse Ox O2 Del Method 36.8 C 74 16 121/52 H 96 Room Air 08/19/24 01:31 08/19/24 01:31 08/19/24 01:31 08/19/24 01:31 08/19/24 01:31 08/19/24 01:31 Oxygen Delivery Method Room Air Weight: 127.7 kg Body Mass Index (BMI) 36.1 Intake & Output: Intake and Output for Last 24 Hours 08/17/24 08/18/24 08/19/24 23:59 23:59 23:59 Intake Total 3355.00 / 3355.00 2205 / 2205 50 / 50 Output Total 2625 / 2625 1000 / 1000 Balance 730.00 / 730.00 1205 / 1205 50 / 50 Lab / Micro Data 08/19/24 05:20 08/19/24 05:20 Labs: Laboratory Results - last 24 hr 08/18/24 03:33: Sodium 134, Potassium 4.0, Chloride 103, Carbon Dioxide 20.3 L, Anion Gap 10, BUN 26 H, Creatinine 1.55 H, Estim Creat Clear Calc 74.67, Est GFR (MDRD) Non-Af 52 L, BUN/Creatinine Ratio 16.7, Glucose 126 H, Calcium 8.6, V ancomycin Trough 20.4 H 08/18/24 07:52: POC Glucose 127 H 08/18/24 11:40: POC Glucose 198 H 08/18/24 18:00: POC Glucose 191 H 08/18/24 21:50: POC Glucose 185 H 08/19/24 05:20: WBC 4.4, RBC 4.45 L, Hgb 12.5 L, Hct 37.9 L, MCV 85.2, MCH 28.1, MCHC 33.0, RDW Std Deviation 39.1, RDW Coeff of Faheem 12.6, Plt Count 185, MPV 9.5, Immature Gran % (Auto) 0.500, Neut % (Auto) 55.4, Lymph % (Auto) 25.2, [place] % (Auto) 14.3 H, Eos % (Auto) 3.9, Baso % (Auto) 0.7, Absolute Neuts (auto) 2.4, Absolute Lymphs (auto) 1.11, Nucleated RBC % 0, Sodium 135, Potassium 4.0, Chloride 104, Carbon Dioxide 20.5 L, Anion Gap 10, BUN 26 H, Creatinine 1.58 H, Estim Creat Clear Calc 73.25, Est GFR (MDRD) Non-Af 51 L, BUN/Creatinine Ratio 16.1, Glucose 153 H, Calcium 8.8 08/19/24 06:52: POC Glucose 157 H Micro: Microbiology 08/16/24 12:53 Blood Culture (Wb) - Right Wrist Bacteria Detection (PCR) - Final Strep not Strep pneumo 08/16/24 12:53 Blood Culture (Wb) - Right Wrist Blood Culture - Final Meth. resistant Staph. aureus Streptococcus mitis/ oralis 08/16/24 12:53 Blood Culture (Wb) - Right Wrist Blood Culture - Final Staphylococcus aureus 08/16/24 14:50 Urine, Clean Catch Urine Culture - Final Culture exhibits no growth. 08/17/24 09:20 Wound - Right Foot Gram Stain - Final 08/16/24 12:56 Mucosa - Nose SARS-CoV-2, Influenza & RSV (PCR) - Final Physical Exam Const no apparent distress HEENT head/scalp atraumatic and moist oral mucous membranes Resp normal respiratory effort and no retractions Extremity Extremity Narrative: right foot wrapped--did not remove. Neuro moves all extremities Sensorium / Orientation: awake and alert Speech: speech normal Psych affect normal Assessment & Plan Assessment/Plan (1) Diabetic foot infection: PLAN: MRI showed acute osteomyelitis a the base of sloe 5th metatarsal with subjacent abscess/ulcer. DW Wound nurse who had discussed with Dr. Zeng (whom the patient was previously seeing) and told her that the patient was fired from the practice due to non-payment. Seen by podiatry (Dr. Joyce) who discussed debridement and external fixation for 08/20. Consult ID for long-term abx recommendations. vanc and pip/tazo Concern for long-term mgmt as pt has poor insight into his condition. (2) Bacteremia: PLAN: 08/16 blood cultures: 1 set with Strep mitis and MRSA. The other with S. aureus (sensitivities pending) Repeat BCx from 08/17 pending. Concern it may be coming from his foot If repeat Cxs still showing bacteria, he will need a TTE and repeat BCx PLAN: Plan DM2: glargine, prandial and SSI. a1c 7.8. Fair control at this time. HTN: continue nifedipine VTE prophylaxis: SQ heparin Charges/Coding Visit Charges Inpatient E&M: 29623 Subs Hosp L2
[2024-08-19 08:00] VITALS: BP 129/66; PULSE 65; RESP 16; TEMP 36.7; O2SAT 97
[2024-08-19] MEDS: Insulin Lispro 100 UNIT/ML INSULN.PEN 8 UNIT SC ×3 (08:17→17:57)
[2024-08-19] MEDS: Juven (unflavored) Packet 1 PACKET PO ×2 (08:17→16:04)
[2024-08-19] MEDS: Insulin Lispro 100 UNIT/ML INSULN.PEN SC ×4 (08:17→21:53)
[2024-08-19] MEDS: Ramipril 10 MG Capsule PO (08:18)
[2024-08-19] MEDS: DAKIN'S SOL HALF STRENGTH (=0.25%) TOPICAL (08:18)
[2024-08-19] MEDS: NIFEdipine 90 MG Tablet PO (08:19)
[2024-08-19 11:53] LABS: Bedside Glucose 169 mg/dL (74-106)
[2024-08-19 14:00] VITALS: BP 130/68; PULSE 72; RESP 16; TEMP 36.7; O2SAT 98
[2024-08-19 17:09] LABS: Bedside Glucose 176 mg/dL (74-106)
[2024-08-19 20:00] VITALS: BP 129/65; PULSE 74; RESP 16; TEMP 36.7; O2SAT 100
[2024-08-19] MEDS: Atorvastatin Calcium 40 MG Tablet PO (21:38)
[2024-08-19] MEDS: Insulin Glargine-YFGN 100 UNIT/ML Pen 20 UNIT SC (21:53)
[2024-08-19 22:39] LABS: Bedside Glucose 171 mg/dL (74-106)
--- NOTE | 2024-08-19 22:39 | PN_ITS ---
Subjective Subjective seen patient today seems to be still unsure on what he wants to do. will return tomorrow to discuss and see if tuesday is better for him, i will have to order the illizarov frame for him but then he can be offloaded and walking with cruthces and stil heal the wound. will need long-term iv atbx as removing this entire bone will change the course of his foot and ankle Objective Data Objective Data Vital Signs: Vital Signs Temp Pulse Resp BP Pulse Ox O2 Del Method 98.1 F 72 16 130/68 H 98 Room Air 08/19/24 14:00 08/19/24 14:00 08/19/24 14:00 08/19/24 14:00 08/19/24 14:00 08/19/24 14:00 Oxygen Delivery Method Room Air Weight: 127.7 kg Body Mass Index (BMI) 36.1 Intake & Output: Intake and Output for Last 24 Hours 08/17/24 08/18/24 08/19/24 23:59 23:59 23:59 Intake Total 3355.00 / 3355.00 2205 / 2205 1210 / 1210 Output Total 2625 / 2625 1000 / 1000 Balance 730.00 / 730.00 1205 / 1205 1210 / 1210 Lab / Micro Data 08/19/24 05:20 08/19/24 05:20 Labs: Laboratory Results - last 24 hr 08/19/24 05:20: WBC 4.4, RBC 4.45 L, Hgb 12.5 L, Hct 37.9 L, MCV 85.2, MCH 28.1, MCHC 33.0, RDW Std Deviation 39.1, RDW Coeff of Faheem 12.6, Plt Count 185, MPV 9.5, Immature Gran % (Auto) 0.500, Neut % (Auto) 55.4, Lymph % (Auto) 25.2, [place] % (Auto) 14.3 H, Eos % (Auto) 3.9, Baso % (Auto) 0.7, Absolute Neuts (auto) 2.4, Absolute Lymphs (auto) 1.11, Nucleated RBC % 0, Sodium 135, Potassium 4.0, Chloride 104, Carbon Dioxide 20.5 L, Anion Gap 10, BUN 26 H, Creatinine 1.58 H, Estim Creat Clear Calc 73.25, Est GFR (MDRD) Non-Af 51 L, BUN/Creatinine Ratio 16.1, Glucose 153 H, Calcium 8.8 08/19/24 06:52: POC Glucose 157 H 08/19/24 11:34: POC Glucose 169 H 08/19/24 16:38: POC Glucose 176 H Micro: Microbiology 08/17/24 13:43 Blood Culture (Wb) - Left Hand Blood Culture - Preliminary No growth in 48 hours. 08/17/24 13:35 Blood Culture (Wb) - Anticubital Left Blood Culture - Preliminary No growth in 48 hours. 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 resistant Staph. aureus Streptococcus mitis/ oralis 08/16/24 12:53 Blood Culture (Wb) - Right Wrist Blood Culture - Final Staphylococcus aureus 08/16/24 14:50 Urine, Clean Catch Urine Culture - Final Culture exhibits no growth. 08/16/24 12:56 Mucosa - Nose SARS-CoV-2, Influenza & RSV (PCR) - Final Physical Exam Narrative understands he needs surgery he is just more worried about life after he gets better nd leave the hospital Const alert and oriented x3 Extremity Extremity Narrative: ulcer sub 5th met styoid process deep to bone, mri positive for bone osteomylits, recommedn incisiona nd drainge of the wound and bone and then clean the bone and then apply external fixation. will discusse again tomorro and plan fortuesday. will need to tallk tomorrow and f/u then to see what h wants to do outpatien or inpatiet. start set up for logn term iv atbx. Assessment & Plan Assessment/Plan (1) Bacteremia: (2) Diabetic foot infection: (3) Cavus deformity of right foot: (4) Type 2 diabetes mellitus with foot ulcer:
[2024-08-20 02:00] VITALS: BP 130/64; PULSE 70; RESP 16; TEMP 36.4; O2SAT 97
[2024-08-20 03:44] LABS: Absolute Lymphocyte Count 1.35 X10^3/uL (0.83-4.51); Absolute Neutrophil Count 2.8 X10^3/uL (2.0-7.7); Basophil# 0.05 X10^3/uL; Eosinophil# 0.27 X10^3/uL; Eosinophils% 5.5 % (0-5); Hematocrit 37.8 % (40-54); Hemoglobin 12.7 g/dL (13.0-16.5); Lymphocyte # 1.35 X10^3/ul (0.83-4.51); Lymphocyte % 27.6 % (19-41); Mean Corp Hgb Conc 33.6 g/dL (32-36); Mean Corpuscular Hgb 28.2 pg (27.0-32.0); Mean Platelet Vol. 9.1 fl (6.2-12.0); Monocyte# 0.39 X10^3/uL; NRBC Flagged by Analyzer 0 % (0-5); Neutrophil # 2.79 X10^3/uL (2.7-7.7); Neutrophil % 57.1 % (47-70); Platelet Count 219 K/mm3 (150-450); RBC Distribution Width CV 12.4 % (11.6-14.6); RBC Distribution Width SD 38.1 fl (35.1-43.9); White Blood Count 4.9 K/mm3 (4.4-11.0)
[2024-08-20 03:59] LABS: Anion Gap 10 (5-15); BUN 27 mg/dL (4-19); BUN/Creat Ratio 17.5 RATIO (10-20); Calcium,Total 8.7 mg/dL (7.6-11.0); Carbon Dioxide 21.1 mmol/L (21.0-32.0); Chloride 104 mmol/L (98-108); Creatinine, Serum 1.54 mg/dL (0.70-1.20); EST Glomerular Filtration Rate 52 (>60); Estimated Creatinine Clearance 75.16 ml/min (50-250); Glucose 112 mg/dL (70-99); Potassium 4.1 mmol/L (3.3-5.1); Sodium Level 135 mmol/L (133-145)
[2024-08-20 04:20] LABS: Vancomycin, Trough Level 26.3 ug/mL (5.0-15.0)
--- NOTE | 2024-08-20 04:24 | PHA.PHARE_ITS ---
Consult Antibiotic Management Pharmacy has been consulted to manage selected antibiotic: Vancomycin Type of Intervention Type of Consult: Follow-up Suspected Infection Suspected Infection: Osteomyelitis Labs Labs: Sodium 135 mmol/L (133-145) 08/20/24 03:33 Potassium 4.1 mmol/L (3.3-5.1) 08/20/24 03:33 Chloride 104 mmol/L (98-108) 08/20/24 03:33 Carbon Dioxide 21.1 mmol/L (21.0-32.0) 08/20/24 03:33 Anion Gap 10 (5-15) 08/20/24 03:33 BUN 27 mg/dL (4-19) H 08/20/24 03:33 Creatinine 1.54 mg/dL (0.70-1.20) H 08/20/24 03:33 Est GFR (MDRD) Non-Af 52 (>60) L 08/20/24 03:33 BUN/Creatinine Ratio 17.5 RATIO (10-20) 08/20/24 03:33 Glucose 112 mg/dL (70-99) H 08/20/24 03:33 Vancomycin Trough 26.3 ug/mL (5.0-15.0) H 08/20/24 03:33 Microbiology Microbiology: Microbiology 08/17/24 13:43 Blood Culture (Wb) - Left Hand Blood Culture - Preliminary No growth in 48 hours. 08/17/24 13:35 Blood Culture (Wb) - Anticubital Left Blood Culture - Preliminary No growth in 48 hours. 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 resistant Staph. aureus Streptococcus mitis/ oralis 08/16/24 12:53 Blood Culture (Wb) - Right Wrist Blood Culture - Final Staphylococcus aureus 08/16/24 14:50 Urine, Clean Catch Urine Culture - Final Culture exhibits no growth. 08/16/24 12:56 Mucosa - Nose SARS-CoV-2, Influenza & RSV (PCR) - Final Dosing Weight Weight used for dosin kg Estimated Creatinine Clearance Estimated Creatinine Clearance: 75 Goal Trough Goal Trough: 15-20 mcg/mL Pharmacy Plan for Drug Dosing Pharmacy Plan for Drug Dosing: Vancomycin trough level of 26.3, drawn 11.5hrs post-dose, was above the target range of 15-20. Will suspend current dosing and draw a random vancomycin level in 12 hours to determine further orders. Pharmacy Service will continue to monitor and adjust dosing as required. Follow-Up Labs Follow-Up Labs: Trough: Vancomycin (random) Date/Time Labs Ordered Labs to be done on [date and time ordered]: 08/20/24 @1530 (random)
[2024-08-20] MEDS: Heparin Injection (Vial) 5,000 UNIT/ML VIAL 5000 UNIT SC ×3 (05:48→20:15)
[2024-08-20] MEDS: Piperacil/Tazobactam 3.375 GM in 0.9% Normal Saline (50mL MB+) 50 ML IV ×3 (05:49→20:22)
[2024-08-20 07:01] LABS: Bedside Glucose 133 mg/dL (74-106)
--- NOTE | 2024-08-20 08:01 | ECHOCS_ITS ---
Reason For Study Reason For Study: MURMUR, BACTEREMIA Procedure This was a 2D Doppler, Color Flow transthoracic echocardiogram. The study was technically difficult. Exam performed portable in patient room. Left Ventricle Normal LV size. Left ventricular systolic function is normal. The left ventricular ejection fraction is 65 %. No regional wall motion abnormalities noted. Right Ventricle Normal RV size. Normal systolic function. Atria Normal left atrium. Normal right atrium. Mitral Valve There is mild mitral annular calcification. Tricuspid Valve Normal tricuspid valve. Aortic Valve Trisinus/trileaflet aortic valve. Mild focal aortic valve calcification. Pulmonic Valve Normal pulmonic valve. Great Vessels Normal aortic root. The pulmonary artery is normal size. Inferior vena cava collapse with respiration. Pericardium/Pleural No pericardial effusion. Medication Diluted definity 1ml given slow IV push to enhance endocardial definition. MMode/2D Measurements & Calculations LVIDd: 3.9 cm IVSd: 1.4 cm Ao root diam: 3.4 cm LVIDs: 2.6 cm LVPWd: 1.2 cm RVDd: 3.5 cm FS: 32.5 % LAV(MOD-bp): 37.8 ml LVAd ap4: 37.9 cm2 SV(MOD-sp4): 78.8 ml LAV(MOD-bp) Indexed: 15.1 ml/m2 LVLd ap4: 9.2 cm SI(MOD-sp4): 31.4 ml/m2 LAV(MOD-sp2): 36.7 ml EDV(MOD-sp4): 124.7 ml LAV(MOD-sp4): 33.0 ml EDV(sp4-el): 132.3 ml LVAs ap4: 20.5 cm2 LVLs ap4: 7.4 cm ESV(MOD-sp4): 45.9 ml ESV(sp4-el): 48.1 ml EF(MOD-sp4): 63.2 % EF(sp4-el): 63.6 % SV(sp4-el): 84.1 ml LA A4 area: 13.8 cm2 LA dimension(2D): 3.1 cm RA A4 area: 12.9 cm2 TAPSE: 2.3 cm Time Measurements MV dec time: 0.27 sec Doppler Measurements & Calculations MV A max dinesh: 79.8 cm/sec Lat Peak E' Dinesh: 10.4 cm/sec Med Peak E' Dinesh: 9.3 cm/sec Ao V2 max: 122.5 cm/sec LV V1 max: 105.1 cm/sec PA V2 max: 103.6 cm/sec Ao max P.0 mmHg LV V1 max P.4 mmHg TR max dinesh: 248.8 cm/sec TR max P.8 mmHg ECHO/Echo Complete W/ Contrast Interpretation Summary Normal LV size. Left ventricular systolic function is normal. The left ventricular ejection fraction is 65 %. Mild focal aortic valve calcification. Focal echogenic density noted on non coronary cusp and a vegetation cannot be c ompletely excluded. Contrast injection was performed. Ordering Physician: Rob Lyons Referring Physician: NAKUL HUERTA Performed By: Wanda Winn RDCS
--- NOTE | 2024-08-20 08:45 | PCM.PN.HOSP ---
Subjective Subjective No issues overnight, awaiting surgical intervention Objective Data Objective Data Vital Signs: Vital Signs Temp Pulse Resp BP Pulse Ox O2 Del Method 97.5 F L 70 16 130/64 H 97 Room Air 08/20/24 02:00 08/20/24 02:00 08/20/24 02:00 08/20/24 02:00 08/20/24 02:00 08/20/24 02:00 Oxygen Delivery Method Room Air Weight: 281 lb 8.485 oz Body Mass Index (BMI) 36.1 Intake & Output: Intake and Output for Last 24 Hours 08/19/24 08/20/24 08/21/24 03:59 03:59 03:59 Intake Total 2210 / 2210 1160 / 1160 50 / 50 Output Total 1000 / 1000 200 / 200 1900 / 1900 Balance 1210 / 1210 960 / 960 -1850 / -1850 Lab / Micro Data 08/20/24 03:33 08/20/24 03:33 Labs: Laboratory Results - last 24 hr 08/19/24 11:34: POC Glucose 169 H 08/19/24 16:38: POC Glucose 176 H 08/19/24 21:52: POC Glucose 171 H 08/20/24 03:33: WBC 4.9, RBC 4.50 L, Hgb 12.7 L, Hct 37.8 L, MCV 84.0, MCH 28.2, MCHC 33.6, RDW Std Deviation 38.1, RDW Coeff of Faheem 12.4, Plt Count 219, MPV 9.1, Immature Gran % (Auto) 0.800, Neut % (Auto) 57.1, Lymph % (Auto) 27.6, [place] % (Auto) 8.0, Eos % (Auto) 5.5 H, Baso % (Auto) 1.0, Absolute Neuts (auto) 2.8, Absolute Lymphs (auto) 1.35, Nucleated RBC % 0, Sodium 135, Potassium 4.1, Chloride 104, Carbon Dioxide 21.1, Anion Gap 10, BUN 27 H, Creatinine 1.54 H, Estim Creat Clear Calc 75.16, Est GFR (MDRD) Non-Af 52 L, BUN/Creatinine Ratio 17.5, Glucose 112 H, Calcium 8.7, Vancomycin Trough 26.3 H 08/20/24 06:35: POC Glucose 133 H Micro: Microbiology 08/17/24 09:20 Wound - Right Foot Gram Stain - Final 08/17/24 09:20 Wound - Right Foot Wound Culture - Preliminary Pseudomonas aeruginosa Klebsiella oxytoca Staphylococcus sciuri Meth. resistant Staph. aureus Actinomyces bovis 08/17/24 13:43 Blood Culture (Wb) - Left Hand Blood Culture - Preliminary No growth in 48 hours. 08/17/24 13:35 Blood Culture (Wb) - Anticubital Left Blood Culture - Preliminary No growth in 48 hours. 08/16/24 12:53 Blood Culture (Wb) - Right Wrist Bacteria Detection (PCR) - Final Strep not Strep pneumo 08/16/24 12:53 Blood Culture (Wb) - Right Wrist Blood Culture - Final Meth. resistant Staph. aureus Streptococcus mitis/ oralis 08/16/24 12:53 Blood Culture (Wb) - Right Wrist Blood Culture - Final Staphylococcus aureus 08/16/24 14:50 Urine, Clean Catch Urine Culture - Final Culture exhibits no growth. 08/16/24 12:56 Mucosa - Nose SARS-CoV-2, Influenza & RSV (PCR) - Final Physical Exam Narrative General: Alert, Oriented x3, Cooperative, No apparent distress HEENT: Atraumatic, PERRLA, EOMI, Normocephalic Oral: Moist Mucosa Neck: Supple, No JVD Lungs: Diminished, Normal air movement, No rhonchi, No wheeze, No rales Cardiovascular: Regular rate, Regular Rhythm, Normal S1, Normal S2, No murmurs Abdomen: Soft, Non Tender, Non-Distended, No Hepato-splenomegaly Extremities: No edema, Capillary Refill Less than 3 Seconds Skin: Right lateral foot wound with surrounding erythema and serous drainage, dressing intact Musculoskeletal: No Tenderness to Palpation of Joints or Extremities Neurological: No focal neurological deficits, Motor Exam 5/5 strength throughout, bilateral lower extremity peripheral neuropathy Psych/Mental Status: Normal Affect, Appropriate Assessment & Plan Assessment/Plan (1) Diabetic foot infection: (2) Bacteremia: PLAN: Plan 1. Diabetic foot infection with osteomyelitis and bacteremia in the setting of a previous fifth metatarsal resection ? Foot x-ray demonstrates possible osteomyelitis, MRI confirms osteomyelitis ? Blood cultures demonstrating MRSA, 1 set of blood culture shows the anaerobic bottle with staph and the aerobic bottle with strep, the other set of blood cultures demonstrate staph in both anaerobic and aerobic. Repeat blood cultures are negative ? Continue with vancomycin and Zosyn, will consult ID ? Wound culture demonstrated Pseudomonas as well as Klebsiella and actinomyces and MRSA ?A1c of 7.8 ? Will check an A1c and continue with his insulin ? Accu-Cheks ACHS ? Will monitor make adjustments as necessary 2. Essential HTN/HLD ? Will hold his blood pressure medications for the moment while treating his infection can restart in 24 to 48 hours ? Continue with Lipitor ? Will monitor make adjustments as necessary 3. CKD 3 ? It does appear that his creatinine is near baseline of 1.6 DVT: Heparin Charges/Coding Visit Charges Inpatient E&M: 41930 Subs Hosp L2
[2024-08-20 09:38] VITALS: BP 146/79; PULSE 89; RESP 18; TEMP 36.6; O2SAT 98
[2024-08-20] MEDS: Insulin Lispro 100 UNIT/ML INSULN.PEN 8 UNIT SC ×3 (09:52→16:55)
[2024-08-20] MEDS: Ramipril 10 MG Capsule PO (09:53)
[2024-08-20] MEDS: Juven (unflavored) Packet 1 PACKET PO ×2 (09:53→17:00)
[2024-08-20] MEDS: NIFEdipine 90 MG Tablet PO (09:53)
[2024-08-20] MEDS: DAKIN'S SOL HALF STRENGTH (=0.25%) TOPICAL (11:54)
[2024-08-20] MEDS: Insulin Lispro 100 UNIT/ML INSULN.PEN SC ×2 (11:54→20:15)
[2024-08-20 12:16] LABS: Bedside Glucose 206 mg/dL (74-106)
--- NOTE | 2024-08-20 14:11 | CON.PCM.ID_ITS ---
Assessment & Plan Assessment/Plan (1) Bacteremia: PLAN: Strep and MRSA bacteremia due to R DM foot osteo - wound cx with PsA, klebs, MRSA, CoNS, actino. Podiatry following. Repeat bcx neg since 08/17. Concern for endocarditis due to splinter hemorrhages. Will check TTE. OR planned for foot. Cont vanc/zosyn. Will follow, thank you (2) Diabetic foot infection: (3) Type 2 diabetes mellitus with diabetic polyneuropathy: HPI Consult Data Date of Consult: 08/20/24 HPI Narrative Reason for Consultation: osteo HPI Narrative: SHERRI CROWE, is a 59 M with DM neuropathy, presented 08/16 with 2 weeks fatigue, not feeling well, some fever/chills, and increased redness at R foot wound. No pain in foot. No other joint/back pain. Came to ED, admitted on vanc/zosyn. MRI showed osteo, seen by podiatry. Feeling a little better overall. Full ROS performed and neg except as noted above. [facility] Medical History MRSA (methicillin resistant staph aureus) culture positive Diabetic foot infection Anxiety Cavus deformity of right foot Chronic neck and back pain Limb weakness unexplained bruising Knee pain Diarrhea Hay fever Diabetes Arthritis Hypertension Incisional hernia, with obstruction, without gangrene Obesity Hypertension History of seizures as a child Type II diabetes mellitus Home Medications ?Medication ?Instructions ?Recorded ?Last Taken ?Type ramipril 10 mg capsule 10 mg PO DAILY BLOOD PRESSUR E 10/01/14 05/06/17 07:00 History atorvastatin 40 mg tablet 40 mg PO DAILY CHOLESTEROL 1 05/15/23 Unknown History cyclobenzaprine 10 mg tablet 10 mg PO TID PRN MUSCLE S PASMS 03/15/24 Unknown History insulin aspart U-100 100 unit/mL 8 unit subcut TIDCM D IABETES 03/15/24 Unknown History (3 mL) subcutaneous pen nifedipine 90 mg tablet,extended 90 mg PO DAILY HEART/ BLOOD PRESSURE 03/15/24 Unknown History release 24 hr tadalafil 20 mg tablet 20 mg PO DAILY PRN ERECTILE 03/15/24 Unknown History DYSFUNCTION ibuprofen-diphenhydramine citrate 2 cap PO QHS sleep a [place] 08/17/24 Unknown History 200 mg-38 mg tablet (Advil PM) insulin glargine 100 unit/mL (3 35 unit subcut QHS KENY BETES 08/17/24 Unknown History mL) subcutaneous pen (Lantus Solostar U-100 Insulin) Allergy/AdvReac Type Severity Reaction Status Date / Time codeine Allergy Mild Hives Verified 08/16/24 12:21 dulaglutide (From Trulicity) Allergy hives Verified 08/16/24 13:06 acetaminophen (From Percocet) AdvReac Nausea Verified 08/16/24 12:21 oxycodone (From Percocet) AdvReac Nausea Verified 08/16/24 12:21 Family History (Updated 08/16/24 @ 16:[address] Js Ruelas MD) Other Diabetes Heart disease Hypertension Surgical History H/O ventral hernia repair S/P ORIF (open reduction internal fixation) fracture Social History housing: apartment Smoking Status: Never smoker alcohol intake: current alcohol intake frequency: holidays/special occasions only Physical Exam Const alert, oriented x3 and no apparent distress General Appearance: cooperative HEENT normocephalic and head/scalp atraumatic Eyes PERRL and EOMs intact bilaterally Neck supple and No nodes Resp normal air movement and clear to auscultation bilaterally Cardio regular rate, regular rhythm and no murmurs GI soft to palpation, non-tender and non-distended Extremity General Extremity: edema Skin Skin Narrative: reviewed wound photo. numerous splinter hemorrhages on both hands. Neuro CN's II-XII intact bilaterally Lab / Micro Data Attestation: I reviewed the patient's lab results. 08/20/24 03:33 08/20/24 03:33 Labs: Laboratory Results - last 24 hr 08/19/24 16:38: POC Glucose 176 H 08/19/24 21:52: POC Glucose 171 H 08/20/24 03:33: WBC 4.9, RBC 4.50 L, Hgb 12.7 L, Hct 37.8 L, MCV 84.0, MCH 28.2, MCHC 33.6, RDW Std Deviation 38.1, RDW Coeff of Faheem 12.4, Plt Count 219, MPV 9.1, Immature Gran % (Auto) 0.800, Neut % (Auto) 57.1, Lymph % (Auto) 27.6, [place] % (Auto) 8.0, Eos % (Auto) 5.5 H, Baso % (Auto) 1.0, Absolute Neuts (auto) 2.8, Absolute Lymphs (auto) 1.35, Nucleated RBC % 0, Sodium 135, Potassium 4.1, Chloride 104, Carbon Dioxide 21.1, Anion Gap 10, BUN 27 H, Creatinine 1.54 H, Estim Creat Clear Calc 75.16, Est GFR (MDRD) Non-Af 52 L, BUN/Creatinine Ratio 17.5, Glucose 112 H, Calcium 8.7, Vancomycin Trough 26.3 H 08/20/24 06:35: POC Glucose 133 H 08/20/24 11:53: POC Glucose 206 H Micro: Microbiology 08/17/24 09:20 Wound - Right Foot Gram Stain - Final 08/17/24 09:20 Wound - Right Foot Wound Culture - Preliminary Pseudomonas aeruginosa Klebsiella oxytoca Staphylococcus sciuri Meth. resistant Staph. aureus Actinomyces bovis 08/17/24 13:43 Blood Culture (Wb) - Left Hand Blood Culture - Preliminary No growth in 48 hours. 08/17/24 13:35 Blood Culture (Wb) - Anticubital Left Blood Culture - Preliminary No growth in 48 hours.
--- NOTE | 2024-08-20 15:31 | CASEMGMT ---
Spoke with ID, plan for IV atb at dc but med will not be known until after surgery. RN CM to follow.
[2024-08-20 15:58] LABS: Vancomycin, Random Level 18.6 ug/mL (0.0-15.0)
[2024-08-20 16:00] VITALS: BP 125/72; PULSE 79; RESP 18; TEMP 36.6; O2SAT 98
--- NOTE | 2024-08-20 16:08 | PCM.RX.CS ---
Consult Antibiotic Management Pharmacy has been consulted to manage selected antibiotic: Vancomycin Type of Intervention Type of Consult: Follow-up Suspected Infection Suspected Infection: Osteomyelitis Prior Doses of Antibiotics Prior Doses of Antibiotics Received/Current Regimen: Vancomycin 1500 mg Q12H last dose given 08/19/24 @ 1553 Labs Labs: Sodium 135 mmol/L (133-145) 08/20/24 03:33 Potassium 4.1 mmol/L (3.3-5.1) 08/20/24 03:33 Chloride 104 mmol/L (98-108) 08/20/24 03:33 Carbon Dioxide 21.1 mmol/L (21.0-32.0) 08/20/24 03:33 Anion Gap 10 (5-15) 08/20/24 03:33 BUN 27 mg/dL (4-19) H 08/20/24 03:33 Creatinine 1.54 mg/dL (0.70-1.20) H 08/20/24 03:33 Est GFR (MDRD) Non-Af 52 (>60) L 08/20/24 03:33 BUN/Creatinine Ratio 17.5 RATIO (10-20) 08/20/24 03:33 Glucose 112 mg/dL (70-99) H 08/20/24 03:33 Vancomycin Trough 26.3 ug/mL (5.0-15.0) H 08/20/24 03:33 Random Vancomycin 18.6 ug/mL (0.0-15.0) H 08/20/24 15:15 Microbiology Microbiology: Microbiology 08/17/24 09:20 Wound - Right Foot Gram Stain - Final 08/17/24 09:20 Wound - Right Foot Wound Culture - Preliminary Pseudomonas aeruginosa Klebsiella oxytoca Staphylococcus sciuri Meth. resistant Staph. aureus Actinomyces bovis 08/17/24 13:43 Blood Culture (Wb) - Left Hand Blood Culture - Preliminary No growth in 48 hours. 08/17/24 13:35 Blood Culture (Wb) - Anticubital Left Blood Culture - Preliminary No growth in 48 hours. 08/16/24 12:53 Blood Culture (Wb) - Right Wrist Bacteria Detection (PCR) - Final Strep not Strep pneumo 08/16/24 12:53 Blood Culture (Wb) - Right Wrist Blood Culture - Final Meth. resistant Staph. aureus Streptococcus mitis/ oralis 08/16/24 12:53 Blood Culture (Wb) - Right Wrist Blood Culture - Final Staphylococcus aureus 08/16/24 14:50 Urine, Clean Catch Urine Culture - Final Culture exhibits no growth. 08/16/24 12:56 Mucosa - Nose SARS-CoV-2, Influenza & RSV (PCR) - Final Dosing Weight Weight used for dosin.7 kg Estimated Creatinine Clearance Estimated Creatinine Clearance: ~ 75 Goal Trough Goal Trough: 15-20 mcg/mL Pharmacy Plan for Drug Dosing Pharmacy Plan for Drug Dosing: Vancomycin random level = 18.6, resume vancomycin 1000 mg Q12H. Pharmacy Service will continue to monitor and adjust dosing as required. Follow-Up Labs Follow-Up Labs: Trough: Vancomycin Date/Time Labs Ordered Labs to be done on [date and time ordered]: 08/22/24 @ 6981
[2024-08-20 17:20] LABS: Bedside Glucose 116 mg/dL (74-106)
[2024-08-20] MEDS: Vancomycin IV 1,000 MG/200 ML BAG 200 MG IV (17:40)
[2024-08-20 20:02] VITALS: BP 128/64; PULSE 83; RESP 16; TEMP 36.7; O2SAT 97
[2024-08-20] MEDS: Atorvastatin Calcium 40 MG Tablet PO (20:16)
[2024-08-20] MEDS: Insulin Glargine-YFGN 100 UNIT/ML Pen 20 UNIT SC (20:16)
[2024-08-20 22:28] LABS: Bedside Glucose 248 mg/dL (74-106)
[2024-08-20] MEDS: DiphenhydrAMINE 25 MG Capsule 50 MG PO (23:10)
[2024-08-20] MEDS: Ibuprofen 400 MG Tablet PO (23:10)
[2024-08-20] MEDS: cycloBENZAPRine HCl 10 MG Tablet PO (23:13)
[2024-08-21] MEDS: Vancomycin IV 1,000 MG/200 ML BAG 200 MG IV ×2 (03:56→16:18)
[2024-08-21 04:04] VITALS: BP 129/73; PULSE 78; RESP 16; TEMP 36.6; O2SAT 97
[2024-08-21] MEDS: Piperacil/Tazobactam 3.375 GM in 0.9% Normal Saline (50mL MB+) 50 ML IV (05:07)
[2024-08-21] MEDS: Insulin Lispro 100 UNIT/ML INSULN.PEN SC ×3 (05:12→16:18)
[2024-08-21] MEDS: Insulin Lispro 100 UNIT/ML INSULN.PEN 8 UNIT SC ×3 (05:12→16:18)
[2024-08-21 05:33] LABS: Bedside Glucose 194 mg/dL (74-106)
[2024-08-21 05:37] LABS: Absolute Lymphocyte Count 1.26 X10^3/uL (0.83-4.51); Absolute Neutrophil Count 4.1 X10^3/uL (2.0-7.7); Basophil# 0.08 X10^3/uL; Basophil% 1.3 % (0-1); Eosinophil# 0.25 X10^3/uL; Hematocrit 37.3 % (40-54); Hemoglobin 12.4 g/dL (13.0-16.5); Lymphocyte # 1.26 X10^3/ul (0.83-4.51); Lymphocyte % 20.2 % (19-41); Mean Corp Hgb Conc 33.2 g/dL (32-36); Mean Corpuscular Hgb 27.9 pg (27.0-32.0); Mean Corpuscular Volume 83.8 fL (80-94); Mean Platelet Vol. 9.2 fl (6.2-12.0); Monocyte# 0.46 X10^3/uL; Monocyte% 7.4 % (0-10); NRBC Flagged by Analyzer 0 % (0-5); Neutrophil % 65.8 % (47-70); Platelet Count 247 K/mm3 (150-450); RBC Distribution Width CV 12.4 % (11.6-14.6); RBC Distribution Width SD 37.9 fl (35.1-43.9); Red Blood Count 4.45 M/mm3 (4.6-6.2); White Blood Count 6.2 K/mm3 (4.4-11.0)
[2024-08-21 06:32] LABS: Anion Gap 10 (5-15); BUN 27 mg/dL (4-19); BUN/Creat Ratio 17.5 RATIO (10-20); Calcium,Total 8.8 mg/dL (7.6-11.0); Carbon Dioxide 21.4 mmol/L (21.0-32.0); Chloride 103 mmol/L (98-108); Creatinine, Serum 1.53 mg/dL (0.70-1.20); EST Glomerular Filtration Rate 53 (>60); Estimated Creatinine Clearance 75.65 ml/min (50-250); Glucose 201 mg/dL (70-99); Sodium Level 134 mmol/L (133-145)
[2024-08-21] MEDS: DAKIN'S SOL HALF STRENGTH (=0.25%) TOPICAL (07:54)
[2024-08-21 08:38] VITALS: BP 130/72; PULSE 70; RESP 18; TEMP 36.8; O2SAT 98
[2024-08-21] MEDS: Juven (unflavored) Packet 1 PACKET PO ×2 (09:08→16:18)
[2024-08-21] MEDS: NIFEdipine 90 MG Tablet PO (09:09)
[2024-08-21] MEDS: Ramipril 10 MG Capsule PO (09:09)
--- NOTE | 2024-08-21 09:22 | WOUNDNOTE ---
wound photo: right foot
--- NOTE | 2024-08-21 09:23 | WOUNDNOTE ---
skin photo: right foot
--- NOTE | 2024-08-21 09:37 | PN.HOSP_ITS ---
Subjective Subjective No issues overnight, echo demonstrated valvular calcifications could not rule out a vegetation. This was ordered secondary to splinter hemorrhages seen by ID however cultures have completely cleared very quickly Objective Data Objective Data Vital Signs: Vital Signs Temp Pulse Resp BP Pulse Ox O2 Del Method 98.2 F 70 18 130/72 H 98 Room Air 08/21/24 08:38 08/21/24 08:38 08/21/24 08:38 08/21/24 08:38 08/21/24 08:38 08/21/24 08:38 Oxygen Delivery Method Room Air Weight: 281 lb 8.485 oz Body Mass Index (BMI) 36.1 Intake & Output: Intake and Output for Last 24 Hours 08/20/24 08/21/24 08/22/24 03:59 03:59 03:59 Intake Total 1160 / 1160 1000 / 1000 200 / 200 Output Total 200 / 200 3350 / 3350 825 / 825 Balance 960 / 960 -2350 / -2350 -625 / -625 Lab / Micro Data 08/21/24 05:14 08/21/24 05:14 Labs: Laboratory Results - last 24 hr 08/20/24 11:53: POC Glucose 206 H 08/20/24 15:15: Random Vancomycin 18.6 H 08/20/24 16:52: POC Glucose 116 H 08/20/24 20:14: POC Glucose 248 H 08/21/24 05:10: POC Glucose 194 H 08/21/24 05:14: WBC 6.2, RBC 4.45 L, Hgb 12.4 L, Hct 37.3 L, MCV 83.8, MCH 27.9, MCHC 33.2, RDW Std Deviation 37.9, RDW Coeff of Faheem 12.4, Plt Count 247, MPV 9.2, Immature Gran % (Auto) 1.300 H, Neut % (Auto) 65.8, Lymph % (Auto) 20.2, [place] % (Auto) 7.4, Eos % (Auto) 4.0, Baso % (Auto) 1.3 H, Absolute Neuts (auto) 4.1, Absolute Lymphs (auto) 1.26, Nucleated RBC % 0, Sodium 134, Potassium 4.0, Chloride 103, Carbon Dioxide 21.4, Anion Gap 10, BUN 27 H, Creatinine 1.53 H, Estim Creat Clear Calc 75.65, Est GFR (MDRD) Non-Af 53 L, BUN/Creatinine Ratio 17.5, Glucose 201 H, Calcium 8.8 Micro: Microbiology 08/17/24 09:20 Wound - Right Foot Gram Stain - Final 08/17/24 09:20 Wound - Right Foot Wound Culture - Final Pseudomonas aeruginosa Klebsiella oxytoca Staphylococcus sciuri Meth. resistant Staph. aureus Actinomyces bovis 08/17/24 09:20 Wound - Right Foot Anaerobic Culture - Preliminary 08/17/24 13:43 Blood Culture (Wb) - Left Hand Blood Culture - Preliminary No growth in 48 hours. 08/17/24 13:35 Blood Culture (Wb) - Anticubital Left Blood Culture - Preliminary No growth in 48 hours. 08/16/24 12:53 Blood Culture (Wb) - Right Wrist Bacteria Detection (PCR) - Final Strep not Strep pneumo 08/16/24 12:53 Blood Culture (Wb) - Right Wrist Blood Culture - Final Meth. resistant Staph. aureus Streptococcus mitis/ oralis 08/16/24 12:53 Blood Culture (Wb) - Right Wrist Blood Culture - Final Staphylococcus aureus 08/16/24 14:50 Urine, Clean Catch Urine Culture - Final Culture exhibits no growth. 08/16/24 12:56 Mucosa - Nose SARS-CoV-2, Influenza & RSV (PCR) - Final Radiography Diagnostic Testing: Radiology Impression Echocardiogram 08/20/24 08:01 Interpretation Summary Normal LV size. Left ventricular systolic function is normal. The left ventricular ejection fraction is 65 %. Mild focal aortic valve calcification. Focal echogenic density noted on non coronary cusp and a vegetation cannot be completely excluded. Contrast injection was performed. Ordering Physician: Rob Lyons Referring Physician: NAKUL HUERTA Performed By: Wanda Winn RDCS Physical Exam Narrative General: Alert, Oriented x3, Cooperative, No apparent distress HEENT: Atraumatic, PERRLA, EOMI, Normocephalic Oral: Moist Mucosa Neck: Supple, No JVD Lungs: Diminished, Normal air movement, No rhonchi, No wheeze, No rales Cardiovascular: Regular rate, Regular Rhythm, Normal S1, Normal S2, No murmurs Abdomen: Soft, Non Tender, Non-Distended, No Hepato-splenomegaly Extremities: No edema, Capillary Refill Less than 3 Seconds Skin: Right lateral foot wound with surrounding erythema and serous drainage, dressing intact Musculoskeletal: No Tenderness to Palpation of Joints or Extremities Neurological: No focal neurological deficits, Motor Exam 5/5 strength throughout, bilateral lower extremity peripheral neuropathy Psych/Mental Status: Normal Affect, Appropriate Assessment & Plan Assessment/Plan (1) Diabetic foot infection: (2) Bacteremia: PLAN: Plan 1. Diabetic foot infection with osteomyelitis and bacteremia in the setting of a previous fifth metatarsal resection ? Foot x-ray demonstrates possible osteomyelitis, MRI confirms osteomyelitis ? Blood cultures demonstrating MRSA, 1 set of blood culture shows the anaerobic bottle with staph and the aerobic bottle with strep, the other set of blood cultures demonstrate staph in both anaerobic and aerobic. Repeat blood cultures are negative ? Continue with vancomycin and Zosyn, appreciate infectious disease assistance, echo with possible vegetation however cultures cleared very quickly so we will discuss with ID if GABRIELLA is indicated at this time ? Wound culture demonstrated Pseudomonas as well as Klebsiella and actinomyces and MRSA ?A1c of 7.8 ? Will check an A1c and continue with his insulin ? Accu-Cheks ACHS ? Will monitor make adjustments as necessary 2. Essential HTN/HLD ? Will hold his blood pressure medications for the moment while treating his infection can restart in 24 to 48 hours ? Continue with Lipitor ? Will monitor make adjustments as necessary 3. CKD 3 ? It does appear that his creatinine is near baseline of 1.6 DVT: Heparin Charges/Coding Visit Charges Inpatient E&M: 08989 Subs Hosp L2
--- NOTE | 2024-08-21 10:23 | PCM.PN.ID ---
Physical Exam Narrative Feeling ok, foot improving, no fever, no n/v/d. Const alert and no apparent distress General Appearance: cooperative Resp normal air movement and clear to auscultation bilaterally Cardio regular rate and regular rhythm GI soft to palpation, non-tender and non-distended Skin Skin Narrative: no new rash, foot wrapped ID ID: Route of nutrition/ use of supplements: [] Nutritional Intake: [] IV Site: [] Cazares Catheter: [] Assessment & Plan Assessment/Plan (1) Bacteremia: PLAN: Strep and MRSA bacteremia due to R DM foot osteo - wound cx with PsA, klebs, MRSA, CoNS, actino. Podiatry following. Repeat bcx neg since 08/17. Concern for endocarditis due to splinter hemorrhages. Possible veg on TTE. OR planned for foot on 08/23. Cont vanc, will change zosyn to nilson for actino coverage. Will order GABRIELLA. Will follow (2) Diabetic foot infection: (3) Type 2 diabetes mellitus with diabetic polyneuropathy:
[2024-08-21 11:38] LABS: Bedside Glucose 204 mg/dL (74-106)
[2024-08-21] MEDS: Meropenem 1 GM in 0.9% Normal Saline (100mL MB+) 100 ML IV ×2 (13:47→22:15)
[2024-08-21] MEDS: Heparin Injection (Vial) 5,000 UNIT/ML VIAL 5000 UNIT SC ×2 (13:48→22:16)
[2024-08-21] MEDS: 0.9% Saline Lock 10 ML Syringe IV ×2 (14:03→16:19)
--- NOTE | 2024-08-21 14:33 | PCM.RX.CS ---
Consult Antibiotic Management Pharmacy has been consulted to manage selected antibiotic: Vancomycin Type of Intervention Type of Consult: Follow-up Suspected Infection Suspected Infection: Osteomyelitis Prior Doses of Antibiotics Prior Doses of Antibiotics Received/Current Regimen: 08/20/24 @ 1740 Vancomycin 1000mg administered 08/21/24 @ 0400 VAncomycin 1000mg administered Labs Labs: Sodium 134 mmol/L (133-145) 08/21/24 05:14 Potassium 4.0 mmol/L (3.3-5.1) 08/21/24 05:14 Chloride 103 mmol/L (98-108) 08/21/24 05:14 Carbon Dioxide 21.4 mmol/L (21.0-32.0) 08/21/24 05:14 Anion Gap 10 (5-15) 08/21/24 05:14 BUN 27 mg/dL (4-19) H 08/21/24 05:14 Creatinine 1.53 mg/dL (0.70-1.20) H 08/21/24 05:14 Est GFR (MDRD) Non-Af 53 (>60) L 08/21/24 05:14 BUN/Creatinine Ratio 17.5 RATIO (10-20) 08/21/24 05:14 Glucose 201 mg/dL (70-99) H 08/21/24 05:14 Vancomycin Trough 26.3 ug/mL (5.0-15.0) H 08/20/24 03:33 Random Vancomycin 18.6 ug/mL (0.0-15.0) H 08/20/24 15:15 Microbiology Microbiology: Microbiology 08/17/24 09:20 Wound - Right Foot Gram Stain - Final 08/17/24 09:20 Wound - Right Foot Wound Culture - Final Pseudomonas aeruginosa Klebsiella oxytoca Staphylococcus sciuri Meth. resistant Staph. aureus Actinomyces bovis 08/17/24 09:20 Wound - Right Foot Anaerobic Culture - Preliminary Gram variable genna 08/17/24 13:43 Blood Culture (Wb) - Left Hand Blood Culture - Preliminary No growth in 48 hours. 08/17/24 13:35 Blood Culture (Wb) - Anticubital Left Blood Culture - Preliminary No growth in 48 hours. 08/16/24 12:53 Blood Culture (Wb) - Right Wrist Bacteria Detection (PCR) - Final Strep not Strep pneumo 08/16/24 12:53 Blood Culture (Wb) - Right Wrist Blood Culture - Final Meth. resistant Staph. aureus Streptococcus mitis/ oralis 08/16/24 12:53 Blood Culture (Wb) - Right Wrist Blood Culture - Final Staphylococcus aureus 08/16/24 14:50 Urine, Clean Catch Urine Culture - Final Culture exhibits no growth. 08/16/24 12:56 Mucosa - Nose SARS-CoV-2, Influenza & RSV (PCR) - Final Dosing Weight Weight used for dosin kg Goal Trough Goal Trough: 15-20 mcg/mL Pharmacy Plan for Drug Dosing Pharmacy Plan for Drug Dosinmg of VAncomycin every 12 hours Pharmacy Service will continue to monitor and adjust dosing as required. Follow-Up Labs Follow-Up Labs: Trough: Vancomycin Date/Time Labs Ordered Labs to be done on [date and time ordered]: 08/22/24 @ 9332
[2024-08-21 14:39] VITALS: BP 107/63; PULSE 79; RESP 18; TEMP 36.6; O2SAT 96
[2024-08-21 16:36] LABS: Bedside Glucose 188 mg/dL (74-106)
[2024-08-21 20:00] VITALS: BP 129/63; PULSE 76; RESP 18; TEMP 36.5; O2SAT 97
[2024-08-21] MEDS: Insulin Glargine-YFGN 100 UNIT/ML Pen 20 UNIT SC (22:15)
[2024-08-21] MEDS: Atorvastatin Calcium 40 MG Tablet PO (22:16)
[2024-08-21] MEDS: Ibuprofen 400 MG Tablet PO (22:23)
[2024-08-21] MEDS: cycloBENZAPRine HCl 10 MG Tablet PO (22:23)
[2024-08-21] MEDS: DiphenhydrAMINE 25 MG Capsule 50 MG PO (22:23)
[2024-08-21 22:35] LABS: Bedside Glucose 144 mg/dL (74-106)
[2024-08-22] VITALS (10 sets, daily range): BP systolic 122–159; BP diastolic 56–81; PULSE 71–89; RESP 16–32; TEMP 36.4–37; O2SAT 97–100
[2024-08-22 03:42] LABS: Absolute Lymphocyte Count 1.57 X10^3/uL (0.83-4.51); Absolute Neutrophil Count 4.5 X10^3/uL (2.0-7.7); Basophil# 0.06 X10^3/uL; Basophil% 0.9 % (0-1); Eosinophils% 4.3 % (0-5); Hematocrit 38.8 % (40-54); Lymphocyte # 1.57 X10^3/ul (0.83-4.51); Lymphocyte % 22.5 % (19-41); Mean Corp Hgb Conc 33.5 g/dL (32-36); Mean Corpuscular Hgb 28.3 pg (27.0-32.0); Mean Corpuscular Volume 84.3 fL (80-94); Monocyte# 0.47 X10^3/uL; Monocyte% 6.7 % (0-10); NRBC Flagged by Analyzer 0 % (0-5); Neutrophil # 4.46 X10^3/uL (2.7-7.7); Neutrophil % 63.7 % (47-70); Platelet Count 284 K/mm3 (150-450); RBC Distribution Width CV 12.5 % (11.6-14.6); RBC Distribution Width SD 38.1 fl (35.1-43.9)
[2024-08-22 04:12] LABS: Anion Gap 9 (5-15); BUN 29 mg/dL (4-19); BUN/Creat Ratio 19.1 RATIO (10-20); Calcium,Total 9.3 mg/dL (7.6-11.0); Carbon Dioxide 23.1 mmol/L (21.0-32.0); Chloride 103 mmol/L (98-108); Creatinine, Serum 1.51 mg/dL (0.70-1.20); EST Glomerular Filtration Rate 54 (>60); Estimated Creatinine Clearance 76.65 ml/min (50-250); Glucose 143 mg/dL (70-99); Sodium Level 135 mmol/L (133-145); Vancomycin, Trough Level 18.9 ug/mL (5.0-15.0)
--- NOTE | 2024-08-22 04:22 | PCM.RX.CS ---
Consult Antibiotic Management Pharmacy has been consulted to manage selected antibiotic: Vancomycin Type of Intervention Type of Consult: Follow-up Suspected Infection Suspected Infection: Osteomyelitis Labs Labs: Sodium 135 mmol/L (133-145) 08/22/24 03:32 Potassium 4.0 mmol/L (3.3-5.1) 08/22/24 03:32 Chloride 103 mmol/L (98-108) 08/22/24 03:32 Carbon Dioxide 23.1 mmol/L (21.0-32.0) 08/22/24 03:32 Anion Gap 9 (5-15) 08/22/24 03:32 BUN 29 mg/dL (4-19) H 08/22/24 03:32 Creatinine 1.51 mg/dL (0.70-1.20) H 08/22/24 03:32 Est GFR (MDRD) Non-Af 54 (>60) L 08/22/24 03:32 BUN/Creatinine Ratio 19.1 RATIO (10-20) 08/22/24 03:32 Glucose 143 mg/dL (70-99) H 08/22/24 03:32 Vancomycin Trough 18.9 ug/mL (5.0-15.0) H 08/22/24 03:32 Random Vancomycin 18.6 ug/mL (0.0-15.0) H 08/20/24 15:15 Microbiology Microbiology: Microbiology 08/17/24 09:20 Wound - Right Foot Gram Stain - Final 08/17/24 09:20 Wound - Right Foot Wound Culture - Final Pseudomonas aeruginosa Klebsiella oxytoca Staphylococcus sciuri Meth. resistant Staph. aureus Actinomyces bovis 08/17/24 09:20 Wound - Right Foot Anaerobic Culture - Preliminary Gram variable genna 08/17/24 13:43 Blood Culture (Wb) - Left Hand Blood Culture - Preliminary No growth in 48 hours. 08/17/24 13:35 Blood Culture (Wb) - Anticubital Left Blood Culture - Preliminary No growth in 48 hours. 08/16/24 12:53 Blood Culture (Wb) - Right Wrist Bacteria Detection (PCR) - Final Strep not Strep pneumo 08/16/24 12:53 Blood Culture (Wb) - Right Wrist Blood Culture - Final Meth. resistant Staph. aureus Streptococcus mitis/ oralis 08/16/24 12:53 Blood Culture (Wb) - Right Wrist Blood Culture - Final Staphylococcus aureus 08/16/24 14:50 Urine, Clean Catch Urine Culture - Final Culture exhibits no growth. 08/16/24 12:56 Mucosa - Nose SARS-CoV-2, Influenza & RSV (PCR) - Final Dosing Weight Weight used for dosin kg Estimated Creatinine Clearance Estimated Creatinine Clearance: 76 Goal Trough Goal Trough: 15-20 mcg/mL Pharmacy Plan for Drug Dosing Pharmacy Plan for Drug Dosing: Vancomycin trough level of 18.9, drawn 11.25hrs post-dose, was within the target range of 15-20. Will continue dosing at 1000mg q12h and will draw another trough level in two days. Pharmacy Service will continue to monitor and adjust dosing as required. Follow-Up Labs Follow-Up Labs: Trough: Vancomycin Date/Time Labs Ordered Labs to be done on [date and time ordered]: 08/24/24 @0336
[2024-08-22] MEDS: Vancomycin IV 1,000 MG/200 ML BAG 200 MG IV ×2 (04:26→15:48)
[2024-08-22] MEDS: Heparin Injection (Vial) 5,000 UNIT/ML VIAL 5000 UNIT SC ×3 (06:32→21:32)
[2024-08-22] MEDS: Meropenem 1 GM in 0.9% Normal Saline (100mL MB+) 100 ML IV ×3 (06:33→21:32)
[2024-08-22] MEDS: DAKIN'S SOL HALF STRENGTH (=0.25%) TOPICAL (07:36)
[2024-08-22 07:57] LABS: Bedside Glucose 170 mg/dL (74-106)
--- NOTE | 2024-08-22 08:00 | ECHOTEE_ITS ---
Reason For Study Reason For Study: Endocarditis Medication GABRIELLA probe 6VT-D (SN [id number]) passed with minimal difficulty. No complications were noted. Cetacaine Topical [place] given X3 orally. Versed 2 mg given slow IVP. Fentanyl 50 mcg given slow IVP. Performed a rapid injection of agitated mix of 9 cc saline and 1cc air to assess for atrial septal defect. Left Ventricle Normal LV size. Left ventricular systolic function is normal. The left ventricular ejection fraction is 60 %. No regional wall motion abnormalities noted. Right Ventricle Normal RV size. Normal systolic function. Atria Bubble contrast study is negative for PFO/ASD. Normal left atrium. No thrombus is detected in the left atrial appendage. Normal right atrium. Mitral Valve Normal mitral valve. Tricuspid Valve Normal tricuspid valve. Aortic Valve Trisinus/trileaflet aortic valve. Focal calcification noted in the base of the aortic valve near the sinus of Valsalva. The above appears to be atherosclerotic. Pulmonic Valve Normal pulmonic valve. Vessels Normal aortic root. Mild atherosclerosis of the aortic arch. ECHO/Echo Transesophageal (GABRIELLA) Interpretation Summary Normal LV size. Left ventricular systolic function is normal. The left ventricular ejection fraction is 60 %. Bubble contrast study is negative for PFO/ASD. Focal calcification noted in the base of the aortic valve near the sinus of Tena alejandro. The above appears to be atherosclerotic Ordering Physician: Rob Lyons Referring Physician: Gerald Tee Performed By: Yovani Holm RCS
--- NOTE | 2024-08-22 11:12 | PN.HOSP_ITS ---
Subjective Subjective No issues overnight, awaiting GABRIELLA today Objective Data Objective Data Vital Signs: Vital Signs Temp Pulse Resp BP Pulse Ox O2 Del Method 97.7 F L 71 28 H 130/69 H 97 Room Air 08/22/24 10:10 08/22/24 10:10 08/22/24 10:10 08/22/24 10:10 08/22/24 09:40 08/22/24 10:10 Oxygen Delivery Method Room Air Weight: 281 lb 8.485 oz Body Mass Index (BMI) 36.1 Intake & Output: Intake and Output for Last 24 Hours 08/21/24 08/22/24 08/23/24 03:59 03:59 03:59 Intake Total 1000 / 1000 1490 / 1490 218.13 / 218.13 Output Total 3350 / 3350 1525 / 1525 Balance -2350 / -2350 -35 / -35 218.13 / 218.13 Lab / Micro Data 08/22/24 03:32 08/22/24 03:32 Labs: Laboratory Results - last 24 hr 08/21/24 11:20: POC Glucose 204 H 08/21/24 16:16: POC Glucose 188 H 08/21/24 22:10: POC Glucose 144 H 08/22/24 03:32: WBC 7.0, RBC 4.60, Hgb 13.0, Hct 38.8 L, MCV 84.3, MCH 28.3, MCHC 33.5, RDW Std Deviation 38.1, RDW Coeff of Faheem 12.5, Plt Count 284, MPV 9.0, Immature Gran % (Auto) 1.900 H, Neut % (Auto) 63.7, Lymph % (Auto) 22.5, [place] % (Auto) 6.7, Eos % (Auto) 4.3, Baso % (Auto) 0.9, Absolute Neuts (auto) 4.5, Absolute Lymphs (auto) 1.57, Nucleated RBC % 0, Sodium 135, Potassium 4.0, Chloride 103, Carbon Dioxide 23.1, Anion Gap 9, BUN 29 H, Creatinine 1.51 H, Estim Creat Clear Calc 76.65, Est GFR (MDRD) Non-Af 54 L, BUN/Creatinine Ratio 19.1, Glucose 143 H, Calcium 9.3, Vancomycin Trough 18.9 H 08/22/24 07:39: POC Glucose 170 H Micro: Microbiology 08/17/24 09:20 Wound - Right Foot Gram Stain - Final 08/17/24 09:20 Wound - Right Foot Wound Culture - Final Pseudomonas aeruginosa Klebsiella oxytoca Staphylococcus sciuri Meth. resistant Staph. aureus Actinomyces bovis 08/17/24 09:20 Wound - Right Foot Anaerobic Culture - Preliminary Gram variable genna 08/17/24 13:43 Blood Culture (Wb) - Left Hand Blood Culture - Preliminary No growth in 48 hours. 08/17/24 13:35 Blood Culture (Wb) - Anticubital Left Blood Culture - Preliminary No growth in 48 hours. 08/16/24 12:53 Blood Culture (Wb) - Right Wrist Bacteria Detection (PCR) - Final Strep not Strep pneumo 08/16/24 12:53 Blood Culture (Wb) - Right Wrist Blood Culture - Final Meth. resistant Staph. aureus Streptococcus mitis/ oralis 08/16/24 12:53 Blood Culture (Wb) - Right Wrist Blood Culture - Final Staphylococcus aureus 08/16/24 14:50 Urine, Clean Catch Urine Culture - Final Culture exhibits no growth. 08/16/24 12:56 Mucosa - Nose SARS-CoV-2, Influenza & RSV (PCR) - Final Physical Exam Narrative General: Alert, Oriented x3, Cooperative, No apparent distress HEENT: Atraumatic, PERRLA, EOMI, Normocephalic Oral: Moist Mucosa Neck: Supple, No JVD Lungs: Diminished, Normal air movement, No rhonchi, No wheeze, No rales Cardiovascular: Regular rate, Regular Rhythm, Normal S1, Normal S2, No murmurs Abdomen: Soft, Non Tender, Non-Distended, No Hepato-splenomegaly Extremities: No edema, Capillary Refill Less than 3 Seconds Skin: Right lateral foot wound with surrounding erythema and serous drainage, dressing intact Musculoskeletal: No Tenderness to Palpation of Joints or Extremities Neurological: No focal neurological deficits, Motor Exam 5/5 strength throughout, bilateral lower extremity peripheral neuropathy Psych/Mental Status: Normal Affect, Appropriate Assessment & Plan Assessment/Plan (1) Diabetic foot infection: (2) Bacteremia: PLAN: Plan 1. Diabetic foot infection with osteomyelitis and bacteremia in the setting of a previous fifth metatarsal resection ? Foot x-ray demonstrates possible osteomyelitis, MRI confirms osteomyelitis ? Blood cultures demonstrating MRSA, 1 set of blood culture shows the anaerobic bottle with staph and the aerobic bottle with strep, the other set of blood cultures demonstrate staph in both anaerobic and aerobic. Repeat blood cultures are negative ? Podiatry will proceed with surgery either tomorrow or Tuesday ? Continue with vancomycin and Zosyn, appreciate infectious disease assistance ? Plan for GABRIELLA today ? Wound culture demonstrated Pseudomonas as well as Klebsiella and actinomyces and MRSA ?A1c of 7.8 ? Will check an A1c and continue with his insulin ? Accu-Cheks ACHS ? Will monitor make adjustments as necessary 2. Essential HTN/HLD ? Will hold his blood pressure medications for the moment while treating his infection can restart in 24 to 48 hours ? Continue with Lipitor ? Will monitor make adjustments as necessary 3. CKD 3 ? It does appear that his creatinine is near baseline of 1.6 DVT: Heparin Charges/Coding Visit Charges Inpatient E&M: 05513 Subs Hosp L2
[2024-08-22] MEDS: Ramipril 10 MG Capsule PO (11:43)
[2024-08-22] MEDS: NIFEdipine 90 MG Tablet PO (11:43)
[2024-08-22] MEDS: Insulin Lispro 100 UNIT/ML INSULN.PEN 8 UNIT SC ×2 (11:44→16:42)
[2024-08-22] MEDS: Insulin Lispro 100 UNIT/ML INSULN.PEN SC ×3 (11:44→21:30)
[2024-08-22] MEDS: Juven (unflavored) Packet 1 PACKET PO ×2 (11:44→16:43)
[2024-08-22 12:00] LABS: Bedside Glucose 154 mg/dL (74-106)
--- NOTE | 2024-08-22 12:56 | PCM.PN.ID ---
Physical Exam Narrative Feeling ok, no fever, tolerated GABRIELLA well. No n/v/d. Const alert and no apparent distress General Appearance: cooperative Resp normal air movement and clear to auscultation bilaterally Cardio regular rate and regular rhythm GI soft to palpation, non-tender and non-distended Skin Skin Narrative: no new rash, foot wrapped ID ID: Route of nutrition/ use of supplements: [] Nutritional Intake: [] IV Site: [] Cazares Catheter: [] Assessment & Plan Assessment/Plan (1) Bacteremia: PLAN: Strep and MRSA bacteremia due to R DM foot osteo - wound cx with PsA, klebs, MRSA, CoNS, actino. Podiatry following. Repeat bcx neg since 08/17. Concern for endocarditis due to splinter hemorrhages. Possible veg on TTE. OR planned for foot on 08/23. Cont vanc and nilson. GABRIELLA showed focal calcification in base of aortic valve, appears to be atherosclerotic per report. Will follow (2) Diabetic foot infection: (3) Type 2 diabetes mellitus with diabetic polyneuropathy:
[2024-08-22] MEDS: 0.9% Saline Lock 10 ML Syringe IV ×3 (14:23→21:33)
--- NOTE | 2024-08-22 16:22 | NURSING ---
All documentation by nursing students Db Cutler and Ameena Muller reviewed by director nursing service Joie HALEN, RN.
[2024-08-22 18:20] LABS: Bedside Glucose 153 mg/dL (74-106)
--- NOTE | 2024-08-22 20:39 | PCM.PN.SRG ---
Subjective Subjective Patient seen today for ulceration right plantar lateral midfoot planning for surgery Tuesday 2 PM for external fixation frame debridement Wound seems to be improving since he has been off it he had a transesophageal echocardiogram which seems to be normal ejection fraction was 60% no signs of vegetation noted. He seems sitting well without complaints he understands that at this point once he gets fitted for this he will then be able to stand and move onto and to allow the wound to heal. Objective Data Objective Data Vital Signs: Vital Signs Temp Pulse Resp BP Pulse Ox O2 Del Method 97.7 F L 72 16 129/56 H 99 Room Air 08/22/24 20:18 08/22/24 20:18 08/22/24 20:18 08/22/24 20:18 08/22/24 20:18 08/22/24 20:18 Oxygen Delivery Method Room Air Weight: 127.7 kg Body Mass Index (BMI) 36.1 Intake & Output: Intake and Output for Last 24 Hours 08/20/24 08/21/24 08/22/24 23:59 23:59 23:59 Intake Total 350 / 350 1220 / 2020 1560.00 / 1560.00 Output Total 3350 / 3350 825 / 1525 1670 / 1670 Balance -3000 / -3000 395 / 495 -110.00 / -110.00 Lab / Micro Data Attestation: I reviewed the patient's lab results. 08/22/24 03:32 08/22/24 03:32 Labs: Laboratory Results - last 24 hr 08/21/24 22:10: POC Glucose 144 H 08/22/24 03:32: WBC 7.0, RBC 4.60, Hgb 13.0, Hct 38.8 L, MCV 84.3, MCH 28.3, MCHC 33.5, RDW Std Deviation 38.1, RDW Coeff of Faheem 12.5, Plt Count 284, MPV 9.0, Immature Gran % (Auto) 1.900 H, Neut % (Auto) 63.7, Lymph % (Auto) 22.5, [place] % (Auto) 6.7, Eos % (Auto) 4.3, Baso % (Auto) 0.9, Absolute Neuts (auto) 4.5, Absolute Lymphs (auto) 1.57, Nucleated RBC % 0, Sodium 135, Potassium 4.0, Chloride 103, Carbon Dioxide 23.1, Anion Gap 9, BUN 29 H, Creatinine 1.51 H, Estim Creat Clear Calc 76.65, Est GFR (MDRD) Non-Af 54 L, BUN/Creatinine Ratio 19.1, Glucose 143 H, Calcium 9.3, Vancomycin Trough 18.9 H 08/22/24 07:39: POC Glucose 170 H 08/22/24 11:36: POC Glucose 154 H 08/22/24 16:39: POC Glucose 153 H Micro: Microbiology 08/17/24 13:35 Blood Culture (Wb) - Anticubital Left Blood Culture - Final No growth in 5 days. 08/17/24 13:43 Blood Culture (Wb) - Left Hand Blood Culture - Final No growth in 5 days. 08/17/24 09:20 Wound - Right Foot Gram Stain - Final 08/17/24 09:20 Wound - Right Foot Wound Culture - Final Pseudomonas aeruginosa Klebsiella oxytoca Staphylococcus sciuri Meth. resistant Staph. aureus Actinomyces bovis 08/17/24 09:20 Wound - Right Foot Anaerobic Culture - Preliminary Gram variable genna 08/16/24 12:53 Blood Culture (Wb) - Right Wrist Bacteria Detection (PCR) - Final Strep not Strep pneumo 08/16/24 12:53 Blood Culture (Wb) - Right Wrist Blood Culture - Final Meth. resistant Staph. aureus Streptococcus mitis/ oralis 08/16/24 12:53 Blood Culture (Wb) - Right Wrist Blood Culture - Final Staphylococcus aureus 08/16/24 14:50 Urine, Clean Catch Urine Culture - Final Culture exhibits no growth. 08/16/24 12:56 Mucosa - Nose SARS-CoV-2, Influenza & RSV (PCR) - Final Radiography Diagnostic Testing: Radiology Impression Transesophageal Echocardiogram 08/22/24 08:00 Interpretation Summary Normal LV size. Left ventricular systolic function is normal. The left ventricular ejection fraction is 60 %. Bubble contrast study is negative for PFO/ASD. Focal calcification noted in the base of the aortic valve near the sinus of Valsalva. The above appears to be atherosclerotic Ordering Physician: Rob Lyosn Referring Physician: Gerald Tee Performed By: Yovani Holm RCS Physical Exam Narrative Wound still noted right plantar foot today was excisionally debrided into including subcutaneous tissue. Debrided the wound and removed any necrotic slough he had no problems with that. Tolerated well. Redressed the wound. Assessment & Plan Assessment/Plan (1) Bacteremia: (2) Diabetic foot infection: PLAN: Plan for offloading with external fixation frame plan for this on Tuesday we will keep him n.p.o. after night. (3) Cavus deformity of right foot: (4) Type 2 diabetes mellitus with foot ulcer: PLAN: Excisional debridement into including subcutaneous tissue of the wound that measures 2 cm x 1 cm x 0.3 cm in depth.
[2024-08-22] MEDS: Atorvastatin Calcium 40 MG Tablet PO (21:29)
[2024-08-22] MEDS: Insulin Glargine-YFGN 100 UNIT/ML Pen 20 UNIT SC (21:31)
[2024-08-22 22:15] LABS: Bedside Glucose 177 mg/dL (74-106)
[2024-08-22] MEDS: DiphenhydrAMINE 25 MG Capsule 50 MG PO (23:15)
[2024-08-22] MEDS: Ibuprofen 400 MG Tablet PO (23:15)
[2024-08-22] MEDS: cycloBENZAPRine HCl 10 MG Tablet PO (23:15)
[2024-08-23] VITALS (7 sets, daily range): BP systolic 108–141; BP diastolic 63–75; PULSE 73–95; RESP 15–18; TEMP 36.4–36.6; O2SAT 96–100
[2024-08-23] MEDS: Vancomycin IV 1,000 MG/200 ML BAG 200 MG IV ×2 (03:41→16:05)
[2024-08-23] MEDS: 0.9% Normal Saline (100mL Bag) 100 ML 15 ML IV (05:56)
[2024-08-23] MEDS: Heparin Injection (Vial) 5,000 UNIT/ML VIAL 5000 UNIT SC (05:56)
[2024-08-23] MEDS: Meropenem 1 GM in 0.9% Normal Saline (100mL MB+) 100 ML IV ×3 (05:56→22:54)
[2024-08-23 06:21] LABS: Absolute Lymphocyte Count 1.37 X10^3/uL (0.83-4.51); Absolute Neutrophil Count 5.2 X10^3/uL (2.0-7.7); Basophil# 0.07 X10^3/uL; Basophil% 0.9 % (0-1); Eosinophil# 0.21 X10^3/uL; Eosinophils% 2.8 % (0-5); Hematocrit 42.2 % (40-54); Hemoglobin 13.8 g/dL (13.0-16.5); Lymphocyte # 1.37 X10^3/ul (0.83-4.51); Lymphocyte % 18.2 % (19-41); Mean Corp Hgb Conc 32.7 g/dL (32-36); Mean Corpuscular Hgb 27.7 pg (27.0-32.0); Mean Corpuscular Volume 84.6 fL (80-94); Mean Platelet Vol. 9.2 fl (6.2-12.0); Monocyte# 0.48 X10^3/uL; Monocyte% 6.4 % (0-10); NRBC Flagged by Analyzer 0 % (0-5); Neutrophil % 68.9 % (47-70); Platelet Count 331 K/mm3 (150-450); RBC Distribution Width CV 12.6 % (11.6-14.6); Red Blood Count 4.99 M/mm3 (4.6-6.2); White Blood Count 7.5 K/mm3 (4.4-11.0)
[2024-08-23 06:34] LABS: Anion Gap 11 (5-15); BUN 29 mg/dL (4-19); BUN/Creat Ratio 20.6 RATIO (10-20); Calcium,Total 9.4 mg/dL (7.6-11.0); Carbon Dioxide 21.9 mmol/L (21.0-32.0); Chloride 101 mmol/L (98-108); Creatinine, Serum 1.41 mg/dL (0.70-1.20); EST Glomerular Filtration Rate 58 (>60); Estimated Creatinine Clearance 82.08 ml/min (50-250); Glucose 183 mg/dL (70-99); Potassium 4.1 mmol/L (3.3-5.1); Sodium Level 134 mmol/L (133-145)
[2024-08-23] MEDS: DAKIN'S SOL HALF STRENGTH (=0.25%) TOPICAL (07:44)
--- NOTE | 2024-08-23 09:27 | PN.HOSP_ITS ---
Subjective Subjective No issues overnight, GABRIELLA is negative for vegetations Objective Data Objective Data Vital Signs: Vital Signs Temp Pulse Resp BP Pulse Ox O2 Del Method 97.7 F L 78 15 127/75 H 99 Room Air 08/23/24 08:40 08/23/24 08:41 08/23/24 08:41 08/23/24 08:40 08/23/24 08:40 08/23/24 08:41 Oxygen Delivery Method Room Air Weight: 281 lb 8.485 oz Body Mass Index (BMI) 36.1 Intake & Output: Intake and Output for Last 24 Hours 08/22/24 08/23/24 08/24/24 03:59 03:59 03:59 Intake Total 1490 / 1490 760.00 / 760.00 850 / 850 Output Total 1525 / 1525 1570 / 1570 600 / 600 Balance -35 / -35 -810 / -810.00 250 / 250 Lab / Micro Data 08/23/24 05:02 08/23/24 05:02 Labs: Laboratory Results - last 24 hr 08/22/24 11:36: POC Glucose 154 H 08/22/24 16:39: POC Glucose 153 H 08/22/24 21:28: POC Glucose 177 H 08/23/24 05:02: WBC 7.5, RBC 4.99, Hgb 13.8, Hct 42.2, MCV 84.6, MCH 27.7, MCHC 32.7, RDW Std Deviation 38.0, RDW Coeff of Faheem 12.6, Plt Count 331, MPV 9.2, I mmature Gran % (Auto) 2.800 H, Neut % (Auto) 68.9, Lymph % (Auto) 18.2 L, [place] % (Auto) 6.4, Eos % (Auto) 2.8, Baso % (Auto) 0.9, Absolute Neuts (auto) 5.2, Absolute Lymphs (auto) 1.37, Nucleated RBC % 0, Sodium 134, Potassium 4.1, Chloride 101, Carbon Dioxide 21.9, Anion Gap 11, BUN 29 H, Creatinine 1.41 H, Estim Creat Clear Calc 82.08, Est GFR (MDRD) Non-Af 58 L, BUN/Creatinine Ratio 20.6 H, Glucose 183 H, Calcium 9.4 Micro: Microbiology 08/17/24 09:20 Wound - Right Foot Gram Stain - Final 08/17/24 09:20 Wound - Right Foot Wound Culture - Final Pseudomonas aeruginosa Klebsiella oxytoca Staphylococcus sciuri Meth. resistant Staph. aureus Actinomyces bovis 08/17/24 09:20 Wound - Right Foot Anaerobic Culture - Preliminary Gram variable genna 08/17/24 13:35 Blood Culture (Wb) - Anticubital Left Blood Culture - Final No growth in 5 days. 08/17/24 13:43 Blood Culture (Wb) - Left Hand Blood Culture - Final No growth in 5 days. 08/16/24 12:53 Blood Culture (Wb) - Right Wrist Bacteria Detection (PCR) - Final Strep not Strep pneumo 08/16/24 12:53 Blood Culture (Wb) - Right Wrist Blood Culture - Final Meth. resistant Staph. aureus Streptococcus mitis/ oralis 08/16/24 12:53 Blood Culture (Wb) - Right Wrist Blood Culture - Final Staphylococcus aureus 08/16/24 14:50 Urine, Clean Catch Urine Culture - Final Culture exhibits no growth. 08/16/24 12:56 Mucosa - Nose SARS-CoV-2, Influenza & RSV (PCR) - Final Radiography Diagnostic Testing: Radiology Impression Transesophageal Echocardiogram 08/22/24 08:00 Interpretation Summary Normal LV size. Left ventricular systolic function is normal. The left ventricular ejection fraction is 60 %. Bubble contrast study is negative for PFO/ASD. Focal calcification noted in the base of the aortic valve near the sinus of Valsalva. The above appears to be atherosclerotic Ordering Physician: Rob Lyons Referring Physician: Gerald Tee Performed By: Yovani Holm RCS Physical Exam Narrative General: Alert, Oriented x3, Cooperative, No apparent distress HEENT: Atraumatic, PERRLA, EOMI, Normocephalic Oral: Moist Mucosa Neck: Supple, No JVD Lungs: Diminished, Normal air movement, No rhonchi, No wheeze, No rales Cardiovascular: Regular rate, Regular Rhythm, Normal S1, Normal S2, No murmurs Abdomen: Soft, Non Tender, Non-Distended, No Hepato-splenomegaly Extremities: No edema, Capillary Refill Less than 3 Seconds Skin: Right lateral foot wound with surrounding erythema and serous drainage, dressing intact Musculoskeletal: No Tenderness to Palpation of Joints or Extremities Neurological: No focal neurological deficits, Motor Exam 5/5 strength throughout, bilateral lower extremity peripheral neuropathy Psych/Mental Status: Normal Affect, Appropriate Assessment & Plan Assessment/Plan (1) Diabetic foot infection: (2) Bacteremia: PLAN: Plan 1. Diabetic foot infection with osteomyelitis and bacteremia in the setting of a previous fifth metatarsal resection ? Foot x-ray demonstrates possible osteomyelitis, MRI confirms osteomyelitis ? Blood cultures demonstrating MRSA, 1 set of blood culture shows the anaerobic bottle with staph and the aerobic bottle with strep, the other set of blood cultures demonstrate staph in both anaerobic and aerobic. Repeat blood cultures are negative ? Podiatry will proceed with surgery on Tuesday ? Continue with vancomycin and Zosyn, appreciate infectious disease assistance ?GABRIELLA is negative for vegetations ? Wound culture demonstrated Pseudomonas as well as Klebsiella and actinomyces and MRSA ?A1c of 7.8 ? Will check an A1c and continue with his insulin ? Accu-Cheks ACHS ? Will monitor make adjustments as necessary 2. Essential HTN/HLD ? Will hold his blood pressure medications for the moment while treating his infection can restart in 24 to 48 hours ? Continue with Lipitor ? Will monitor make adjustments as necessary 3. CKD 3 ? It does appear that his creatinine is near baseline of 1.6 DVT: Heparin Charges/Coding Visit Charges Inpatient E&M: 98892 Subs Hosp L2
[2024-08-23] MEDS: Insulin Lispro 100 UNIT/ML INSULN.PEN 8 UNIT SC ×3 (09:55→17:49)
[2024-08-23] MEDS: Juven (unflavored) Packet 1 PACKET PO ×2 (09:56→17:49)
[2024-08-23] MEDS: Insulin Lispro 100 UNIT/ML INSULN.PEN SC ×2 (09:56→12:20)
[2024-08-23] MEDS: NIFEdipine 90 MG Tablet PO (09:57)
[2024-08-23] MEDS: Ramipril 10 MG Capsule PO (09:57)
[2024-08-23 11:36] LABS: Bedside Glucose 227 mg/dL (74-106)
[2024-08-23 16:19] LABS: Bedside Glucose 145 mg/dL (74-106)
[2024-08-23] MEDS: Atorvastatin Calcium 40 MG Tablet PO (22:12)
[2024-08-23] MEDS: Insulin Glargine-YFGN 100 UNIT/ML Pen 20 UNIT SC (22:12)
[2024-08-23 22:47] LABS: Bedside Glucose 157 mg/dL (74-106)
[2024-08-23] MEDS: DiphenhydrAMINE 25 MG Capsule 50 MG PO (23:03)
[2024-08-23] MEDS: Ibuprofen 400 MG Tablet PO (23:03)
[2024-08-23] MEDS: cycloBENZAPRine HCl 10 MG Tablet PO (23:03)
[2024-08-24] VITALS (12 sets, daily range): BP systolic 92–148; BP diastolic 59–79; PULSE 73–109; RESP 16–18; TEMP 36.3–37.1; O2SAT 91–99; BMI 36.1
[2024-08-24 03:47] LABS: Absolute Lymphocyte Count 1.33 X10^3/uL (0.83-4.51); Absolute Neutrophil Count 6.1 X10^3/uL (2.0-7.7); Basophil# 0.09 X10^3/uL; Eosinophil# 0.39 X10^3/uL; Eosinophils% 4.5 % (0-5); Hematocrit 42.5 % (40-54); Hemoglobin 14.3 g/dL (13.0-16.5); Lymphocyte # 1.33 X10^3/ul (0.83-4.51); Lymphocyte % 15.2 % (19-41); Mean Corp Hgb Conc 33.6 g/dL (32-36); Mean Corpuscular Hgb 28.1 pg (27.0-32.0); Mean Corpuscular Volume 83.7 fL (80-94); Mean Platelet Vol. 8.8 fl (6.2-12.0); Monocyte# 0.58 X10^3/uL; Monocyte% 6.6 % (0-10); NRBC Flagged by Analyzer 0 % (0-5); Neutrophil # 6.06 X10^3/uL (2.7-7.7); Neutrophil % 69.3 % (47-70); Platelet Count 360 K/mm3 (150-450); RBC Distribution Width CV 12.7 % (11.6-14.6); RBC Distribution Width SD 38.3 fl (35.1-43.9); Red Blood Count 5.08 M/mm3 (4.6-6.2); White Blood Count 8.8 K/mm3 (4.4-11.0)
[2024-08-24 04:04] LABS: Anion Gap 11 (5-15); BUN 32 mg/dL (4-19); BUN/Creat Ratio 21.2 RATIO (10-20); Calcium,Total 9.4 mg/dL (7.6-11.0); Carbon Dioxide 22.4 mmol/L (21.0-32.0); Chloride 101 mmol/L (98-108); Creatinine, Serum 1.53 mg/dL (0.70-1.20); EST Glomerular Filtration Rate 53 (>60); Estimated Creatinine Clearance 75.65 ml/min (50-250); Glucose 147 mg/dL (70-99); Potassium 4.1 mmol/L (3.3-5.1); Sodium Level 134 mmol/L (133-145); Vancomycin, Trough Level 23.3 ug/mL (5.0-15.0)
--- NOTE | 2024-08-24 04:08 | PCM.RX.CS ---
Consult Antibiotic Management Pharmacy has been consulted to manage selected antibiotic: Vancomycin Type of Intervention Type of Consult: Follow-up Labs Labs: Sodium 134 mmol/L (133-145) 08/24/24 03:36 Potassium 4.1 mmol/L (3.3-5.1) 08/24/24 03:36 Chloride 101 mmol/L (98-108) 08/24/24 03:36 Carbon Dioxide 22.4 mmol/L (21.0-32.0) 08/24/24 03:36 Anion Gap 11 (5-15) 08/24/24 03:36 BUN 32 mg/dL (4-19) H 08/24/24 03:36 Creatinine 1.53 mg/dL (0.70-1.20) H 08/24/24 03:36 Est GFR (MDRD) Non-Af 53 (>60) L 08/24/24 03:36 BUN/Creatinine Ratio 21.2 RATIO (10-20) H 08/24/24 03:36 Glucose 147 mg/dL (70-99) H 08/24/24 03:36 Vancomycin Trough 23.3 ug/mL (5.0-15.0) H 08/24/24 03:36 Random Vancomycin 18.6 ug/mL (0.0-15.0) H 08/20/24 15:15 Microbiology Microbiology: Microbiology 08/17/24 09:20 Wound - Right Foot Gram Stain - Final 08/17/24 09:20 Wound - Right Foot Wound Culture - Final Pseudomonas aeruginosa Klebsiella oxytoca Staphylococcus sciuri Meth. resistant Staph. aureus Actinomyces bovis 08/17/24 09:20 Wound - Right Foot Anaerobic Culture - Final Actinotignum schaalii 08/17/24 13:35 Blood Culture (Wb) - Anticubital Left Blood Culture - Final No growth in 5 days. 08/17/24 13:43 Blood Culture (Wb) - Left Hand Blood Culture - Final No growth in 5 days. 08/16/24 12:53 Blood Culture (Wb) - Right Wrist Bacteria Detection (PCR) - Final Strep not Strep pneumo 08/16/24 12:53 Blood Culture (Wb) - Right Wrist Blood Culture - Final Meth. resistant Staph. aureus Streptococcus mitis/ oralis 08/16/24 12:53 Blood Culture (Wb) - Right Wrist Blood Culture - Final Staphylococcus aureus 08/16/24 14:50 Urine, Clean Catch Urine Culture - Final Culture exhibits no growth. 08/16/24 12:56 Mucosa - Nose SARS-CoV-2, Influenza & RSV (PCR) - Final Goal Trough Goal Trough: 15-20 mcg/mL Pharmacy Plan for Drug Dosing Pharmacy Plan for Drug Dosing: Pharmacy Service will continue to monitor and adjust dosing as required. TROUGH 23.3 @ 11.5 HOURS. HOLD DOSE AND DRAW RANDOM LEVEL IN 8 HOURS Follow-Up Labs Follow-Up Labs: Trough: Vancomycin Date/Time Labs Ordered Labs to be done on [date and time ordered]: 08/24 @ 1138
[2024-08-24] MEDS: Vancomycin Trough/Random Due 1 LAB MC (04:12)
[2024-08-24] MEDS: Meropenem 1 GM in 0.9% Normal Saline (100mL MB+) 100 ML IV ×3 (04:59→23:08)
[2024-08-24 06:40] LABS: Bedside Glucose 177 mg/dL (74-106)
[2024-08-24] MEDS: Insulin Lispro 100 UNIT/ML INSULN.PEN SC ×3 (06:50→21:39)
--- NOTE | 2024-08-24 07:56 | NURSING ---
This RN called AC RN to question whether or not the pt should get his cardiac/blood pressure medications this morning since pt is NPO expecting to have surgery at 1400. This RN gave the AC RN the names of the patients two blood pressure/cardiac medications: nifedipine, and ramipril. The RN asked the anesthesiologist, Dr. Medeiros if the pt was to receive these medications and per the AC RN, Dr. Medeiros requested that the pt receive these medications this morning with sips of water despite pt being NPO.
[2024-08-24] MEDS: NIFEdipine 90 MG Tablet PO (09:10)
[2024-08-24] MEDS: Ramipril 10 MG Capsule PO (09:10)
--- NOTE | 2024-08-24 10:52 | PCM.PN.HOSP ---
Subjective Subjective Female today, awaiting surgery this afternoon Objective Data Objective Data Vital Signs: Vital Signs Temp Pulse Resp BP Pulse Ox O2 Del Method 97.6 F L 78 16 143/73 H 95 Room Air 08/24/24 07:46 08/24/24 07:46 08/24/24 07:46 08/24/24 07:46 08/24/24 07:46 08/24/24 09:03 Oxygen Delivery Method Room Air Weight: 281 lb 8.485 oz Body Mass Index (BMI) 36.1 Intake & Output: Intake and Output for Last 24 Hours 08/23/24 08/24/24 08/25/24 03:59 03:59 03:59 Intake Total 760.00 / 760.00 2430 / 2430 120 / 120 Output Total 1570 / 1570 1250 / 1250 1550 / 1550 Balance -810 / -810.00 1180 / 1180 -1430 / -1430 Lab / Micro Data 08/24/24 03:36 08/24/24 03:36 Labs: Laboratory Results - last 24 hr 08/23/24 11:17: POC Glucose 227 H 08/23/24 16:01: POC Glucose 145 H 08/23/24 22:14: POC Glucose 157 H 08/24/24 03:36: WBC 8.8, RBC 5.08, Hgb 14.3, Hct 42.5, MCV 83.7, MCH 28.1, MCHC 33.6, RDW Std Deviation 38.3, RDW Coeff of Faheem 12.7, Plt Count 360, MPV 8.8, Immature Gran % (Auto) 3.400 H, Neut % (Auto) 69.3, Lymph % (Auto) 15.2 L, [place] % (Auto) 6.6, Eos % (Auto) 4.5, Baso % (Auto) 1.0, Absolute Neuts (auto) 6.1, Absolute Lymphs (auto) 1.33, Nucleated RBC % 0, Sodium 134, Potassium 4.1, Chloride 101, Carbon Dioxide 22.4, Anion Gap 11, BUN 32 H, Creatinine 1.53 H, Estim Creat Clear Calc 75.65, Est GFR (MDRD) Non-Af 53 L, BUN/Creatinine Ratio 21.2 H, Glucose 147 H, Calcium 9.4, Vancomycin Trough 23.3 H 08/24/24 06:17: POC Glucose 177 H Micro: Microbiology 08/17/24 09:20 Wound - Right Foot Gram Stain - Final 08/17/24 09:20 Wound - Right Foot Wound Culture - Final Pseudomonas aeruginosa Klebsiella oxytoca Staphylococcus sciuri Meth. resistant Staph. aureus Actinomyces bovis 08/17/24 09:20 Wound - Right Foot Anaerobic Culture - Final Actinotignum schaalii 08/17/24 13:35 Blood Culture (Wb) - Anticubital Left Blood Culture - Final No growth in 5 days. 08/17/24 13:43 Blood Culture (Wb) - Left Hand Blood Culture - Final No growth in 5 days. 08/16/24 12:53 Blood Culture (Wb) - Right Wrist Bacteria Detection (PCR) - Final Strep not Strep pneumo 08/16/24 12:53 Blood Culture (Wb) - Right Wrist Blood Culture - Final Meth. resistant Staph. aureus Streptococcus mitis/ oralis 08/16/24 12:53 Blood Culture (Wb) - Right Wrist Blood Culture - Final Staphylococcus aureus 08/16/24 14:50 Urine, Clean Catch Urine Culture - Final Culture exhibits no growth. 08/16/24 12:56 Mucosa - Nose SARS-CoV-2, Influenza & RSV (PCR) - Final Physical Exam Narrative General: Alert, Oriented x3, Cooperative, No apparent distress HEENT: Atraumatic, PERRLA, EOMI, Normocephalic Oral: Moist Mucosa Neck: Supple, No JVD Lungs: Diminished, Normal air movement, No rhonchi, No wheeze, No rales Cardiovascular: Regular rate, Regular Rhythm, Normal S1, Normal S2, No murmurs Abdomen: Soft, Non Tender, Non-Distended, No Hepato-splenomegaly Extremities: No edema, Capillary Refill Less than 3 Seconds Skin: Right lateral foot wound with surrounding erythema and serous drainage, dressing intact Musculoskeletal: No Tenderness to Palpation of Joints or Extremities Neurological: No focal neurological deficits, Motor Exam 5/5 strength throughout, bilateral lower extremity peripheral neuropathy Psych/Mental Status: Normal Affect, Appropriate Assessment & Plan Assessment/Plan (1) Diabetic foot infection: (2) Bacteremia: PLAN: Plan 1. Diabetic foot infection with osteomyelitis and bacteremia in the setting of a previous fifth metatarsal resection ? Foot x-ray demonstrates possible osteomyelitis, MRI confirms osteomyelitis ? Blood cultures demonstrating MRSA, 1 set of blood culture shows the anaerobic bottle with staph and the aerobic bottle with strep, the other set of blood cultures demonstrate staph in both anaerobic and aerobic. Repeat blood cultures are negative ? Podiatry will proceed with surgery today ? Continue with vancomycin and Zosyn, appreciate infectious disease assistance ?GABRIELLA is negative for vegetations ? Wound culture demonstrated Pseudomonas as well as Klebsiella and actinomyces and MRSA ?A1c of 7.8 ?Continue with insulin ? Accu-Cheks ACHS ? Will monitor make adjustments as necessary 2. Essential HTN/HLD ? Will hold his blood pressure medications for the moment while treating his infection can restart in 24 to 48 hours ? Continue with Lipitor ? Will monitor make adjustments as necessary 3. CKD 3 ? It does appear that his creatinine is near baseline of 1.6 DVT: Heparin Charges/Coding Visit Charges Inpatient E&M: 62660 Subs Hosp L2
[2024-08-24 11:47] LABS: Bedside Glucose 204 mg/dL (74-106)
--- NOTE | 2024-08-24 12:46 | PCM.RX.CS ---
Consult Antibiotic Management Pharmacy has been consulted to manage selected antibiotic: Vancomycin Type of Intervention Type of Consult: Follow-up Labs Labs: Sodium 134 mmol/L (133-145) 08/24/24 03:36 Potassium 4.1 mmol/L (3.3-5.1) 08/24/24 03:36 Chloride 101 mmol/L (98-108) 08/24/24 03:36 Carbon Dioxide 22.4 mmol/L (21.0-32.0) 08/24/24 03:36 Anion Gap 11 (5-15) 08/24/24 03:36 BUN 32 mg/dL (4-19) H 08/24/24 03:36 Creatinine 1.53 mg/dL (0.70-1.20) H 08/24/24 03:36 Est GFR (MDRD) Non-Af 53 (>60) L 08/24/24 03:36 BUN/Creatinine Ratio 21.2 RATIO (10-20) H 08/24/24 03:36 Glucose 147 mg/dL (70-99) H 08/24/24 03:36 Vancomycin Trough 23.3 ug/mL (5.0-15.0) H 08/24/24 03:36 Random Vancomycin 17.5 ug/mL (0.0-15.0) H 08/24/24 11:30 Microbiology Microbiology: Microbiology 08/17/24 09:20 Wound - Right Foot Gram Stain - Final 08/17/24 09:20 Wound - Right Foot Wound Culture - Final Pseudomonas aeruginosa Klebsiella oxytoca Staphylococcus sciuri Meth. resistant Staph. aureus Actinomyces bovis 08/17/24 09:20 Wound - Right Foot Anaerobic Culture - Final Actinotignum schaalii 08/17/24 13:35 Blood Culture (Wb) - Anticubital Left Blood Culture - Final No growth in 5 days. 08/17/24 13:43 Blood Culture (Wb) - Left Hand Blood Culture - Final No growth in 5 days. 08/16/24 12:53 Blood Culture (Wb) - Right Wrist Bacteria Detection (PCR) - Final Strep not Strep pneumo 08/16/24 12:53 Blood Culture (Wb) - Right Wrist Blood Culture - Final Meth. resistant Staph. aureus Streptococcus mitis/ oralis 08/16/24 12:53 Blood Culture (Wb) - Right Wrist Blood Culture - Final Staphylococcus aureus 08/16/24 14:50 Urine, Clean Catch Urine Culture - Final Culture exhibits no growth. 08/16/24 12:56 Mucosa - Nose SARS-CoV-2, Influenza & RSV (PCR) - Final Pharmacy Plan for Drug Dosing Pharmacy Plan for Drug Dosing: VANCOMYCIN LEVEL RECEIVED Current Vancomycin Dose: Hold - previously on 1g Q12, last dose administered 08/23/24 @1605 Number of Doses Received: N/A Vancomycin Level: 17.5 Hours Since Last Dose: 20hrs Renal Function: 1.53, CrCl 75 Renal Function Trend: Stable Lab/Micro: Wound cx growing multiple organism, no new results Vancomycin Plan/Comments: Patient had random trough level that resulted in the level of 17.5 (goal 15-20). Now that the patient is in goal range, we will start the patient on 750mg Q12 with a predicted trough of 16.6mg/dL. Pending Level: 08/26/24 @0030 Pharmacy Service will continue to monitor and adjust dosing as required.
[2024-08-24 12:50] LABS: Vancomycin, Random Level 17.7 ug/mL (0.0-15.0)
[2024-08-24] MEDS: Vancomycin HCl 750 MG in 0.9% Normal Saline (250mL Bag) 250 ML 250 MG IV (13:25)
[2024-08-24] MEDS: 0.9% Normal Saline (1000mL) 1,000 ML 15 ML IV (13:27)
--- NOTE | 2024-08-24 13:40 | PRE.ANES_ITS ---
ASA Classification* ASA Classification ASA Classification: 2 Assessment & Plan Anesthesia* Anesthesia Assessment Anesthesia Assessment: Discussed sedation and/or anesthesia options, risks, benefits, and alternatives with patient/parents/legal guardian/POA. Questions invited. The patient/parents/legal guardian/POA seems to understand and agrees to proceed with anesthesia plan. Reviewed the physical assessment, medical history, allergy history and patient home medications list prior to surgery/procedure/anesthetic and documented any changes. Performed airway and anesthesia risk assessments. Anesthesia Type Anesthesia Type: General Anesthesia Focused Assessment* Temperature: 98.0 F Pulse Rate: 83 Blood Pressure: 140/77 Respiratory Rate: 17 Pulse Ox: 98 Airway Assessment Mouth opens: >3 cm Mallampati Score: II Focused Labs Anesthesia Preop lab: CBC WBC 8.8 K/mm3 (4.4-11.0) 08/24/24 03:36 08/24/24 RBC 5.08 M/mm3 (4.6-6.2) 08/24/24 03:36 08/24/24 Hgb 14.3 g/dL (13.0-16.5) 08/24/24 03:36 08/24/24 Hct 42.5 % (40-54) 08/24/24 03:36 08/24/24 Plt Count 360 K/mm3 (150-450) 08/24/24 03:36 08/24/24 CHEMISTRY Potassium 4.1 mmol/L (3.3-5.1) 08/24/24 03:36 08/24/24 Sodium 134 mmol/L (133-145) 08/24/24 03:36 08/24/24 Magnesium 1.8 mg/dL (1.6-2.6) 03/16/24 06:35 03/16/24 Phosphorus 2.6 mg/dL (2.5-4.9) 03/16/24 06:35 03/16/24 BUN 32 mg/dL (4-19) H 08/24/24 03:36 08/24/24 Creatinine 1.53 mg/dL (0.70-1.20) H 08/24/24 03:36 Glucose 147 mg/dL (70-99) H 08/24/24 03:36 08/24/24 POC Glucose 204 mg/dL (74-106) H 08/24/24 11:22 08/24/24 TSH 2.200 uIU/mL (0.358-3.740) 03/15/24 15:30 11/29 COAG PT 15.0 SECONDS (11.7-14.9) H 08/16/24 12:10 04 Pre-Assessment Diagnosis/Proposed Procedure Planned Operative Procedure(s): I&D abscess, with debridement, right midfoot, external fixation right. 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 When Was Last Pacemaker Check QUESTION #4 FULL TEXT: You/Your Family Experience fever (hyperthermia) with Anesthesia Last Oral Intake Last Oral intake: Last Oral Intake NPO since 00:00 08/24/24 12:01 Meds taken in AM with sips of Yes 08/24/24 12:01 water? Meds patient instructed to SEE 08/24/24 12:01 take am of surgery PONV PONV - global consumer sector vice president: PONV - global consumer sector vice president Female HX of Motion Sickness HX of N/V After Surgery Non-Smoker Duration of Surgery greater than 60 minutes Number of Risk Factors PONV Score Height & Weight Height & Weight: Anesthesia: Height & Weight Height 6 ft 2 in 08/24/24 12:01 Weight: 127.7 kg 08/24/24 12:01 Body Mass Index (BMI) 36.1 08/24/24 12:01 Respiratory Assessment Respiratory Assessment - global consumer sector vice president: Respiratory Tract Infection Hx - global consumer sector vice president Hx Respiratory Tract Infection No 08/23/24 03:52 STOP Sleep Apnea STOP Sleep Apnea - global consumer sector vice president: STOP Sleep Apnea - global consumer sector vice president Hx Hypertension Yes 08/18/24 10:59 Hx Sleep Apnea No 08/16/24 19:42 CPAP No 03/16/24 15:32 BIPAP No 04/29/17 13:50 Do you snore loudly (louder No 08/16/24 19:42 than talking or can be heard Do you often feel tired/ No 08/16/24 19:42 fatigued/ sleepy during daytime? Has anyone observed you stop No 08/16/24 19:42 breathing during sleep? STOP Results Negative 08/16/24 19:42 QUESTION #5 FULL TEXT : Do you snore loudly (louder than talking or can be heard through closed doors)? 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 Specify any problems Hx of Preganancy in last 3 N/A 08/16/24 19:42 Months Nurse Filling Out Transfusion [email or web address] 08/16/24 19:42 & Questions: Date: 08/16/24 08/16/24 19:42 Time: 19:55 08/16/24 19:42 Patient unable to answer at this time (ie. confused, unrespo /Reproduction History /Reproductive History - global consumer sector vice president: /Reproductive Hx- global consumer sector vice president Hx Now No 08/23/24 03:52 Gestational Age (in weeks): EDC: Hx Hx Para Hx Section SAB No 08/23/24 03:52 Active Medications Active Medications: Current Medications Generic Name Dose Route Start Last Admin Trade Name Freq PRN Reason Stop Dose Admin Atorvastatin Calcium 40 mg 08/18/24 22:00 08/23/24 22:12 Atorvastatin Calcium 40 Mg Tablet PO 40 mg QHS WAN Administration Cyclobenzaprine HCl 10 mg 08/16/24 19:43 08/23/24 23:03 Cyclobenzaprine Hcl 10 Mg Tablet PO 10 mg TID PRN Administration MUSCLE SPASMS Diphenhydramine HCl 50 mg 08/19/24 01:25 08/23/24 23:03 Diphenhydramine 25 Mg Capsule PO 50 mg QHS PRN PRN Administration INSOMNIA (with ibuprofen) Glucagon 1 mg 08/16/24 19:43 Glucagon 1 Mg/Ml Syringe IM X1 PRN HYPOGLYCEMIA Protocol Heparin Sodium (Porcine) 5,000 unit 08/16/24 22:00 08/23/24 22:46 Heparin Injection (Vial) 5,000 Unit/Ml Vial SC Not Given Q8 WAN Dextrose 250 mls @ 0 mls/hr 08/16/24 19:43 Dextrose 10%-Water IV .Q0M PRN HYPOGLYCEMIA Protocol As Directed Vancomycin IV-PHARMACY TO DOSE 500 mls @ 250 mls/hr 08/16/24 19:43 1 each/ Sodium Chloride IV PRN PRN Rx to Dose Protocol Sodium Chloride 100 mls @ 15 mls/hr 08/16/24 19:57 08/23/24 12:37 IV Infused .Q6H40M PRN Infusion Saline Flush Sodium Chloride 100 mls @ 15 mls/hr 08/16/24 19:57 IV .Q6H40M PRN Additional IVPB Infusion Meropenem 1 gm/ Sodium 120 mls @ 33 mls/hr 08/21/24 14:00 08/24/24 09:02 Chloride IV Infused Q8 WAN Infusion Vancomycin HCl 750 mg/ Sodium 265 mls @ 250 mls/hr 08/24/24 13:00 08/24/24 13:25 Chloride IV 250 mls/hr Q12H WAN Administration Sodium Chloride 1,000 mls @ 15 mls/hr 08/24/24 13:30 08/24/24 13:27 IV 15 mls/hr .Q48H WAN Administration Ibuprofen 400 mg 08/19/24 01:25 08/23/24 23:03 Ibuprofen 400 Mg Tablet PO 400 mg QHS PRN PRN Administration for sleep (with Benadryl) Insulin Glargine 20 unit 08/16/24 22:00 08/23/24 22:12 Insulin Glargine-Yfgn 100 Unit/Ml Pen SC 20 unit QHS WAN Administration Insulin Human Lispro 8 unit 08/17/24 08:00 08/24/24 12:07 Insulin Lispro 100 Unit/Ml Insuln.Pen SC Not Given TIDCM [facility] Insulin Human Lispro 0 unit 08/16/24 19:43 08/24/24 12:07 Insulin Lispro 100 Unit/Ml Insuln.Pen SC Not Given ACHS [facility] Protocol L-Arginine/L-Glutamine/Calcium HMB 1 packet 08/17/24 17:00 08/24/24 09:10 Toni (Unflavored) Packet PO Not Given BIDCM [facility] Nifedipine 90 mg 08/18/24 10:00 08/24/24 09:10 Nifedipine 90 Mg Tablet PO 90 mg DAILY [facility] Administration Ondansetron HCl 4 mg 08/17/24 21:52 08/17/24 23:09 Ondansetron 4 Mg/2 Ml Vial IV 4 mg Q6H PRN PRN Administration NAUSEA/VOMITING Ramipril 10 mg 08/18/24 10:00 08/24/24 09:10 Ramipril 10 Mg Capsule PO 10 mg DAILY [facility] Administration Protocol Sodium Chloride 10 - 40 ml 08/16/24 19:57 08/22/24 21:33 0.9% Saline Lock 10 Ml Syringe IV 10 ml UD PRN Administration SALINE FLUSH Sodium Hypochlorite 0 ml 08/17/24 10:00 08/24/24 09:10 Dakin's Melinda Half Strength (=0.25%) TOPICAL Not Given DAILY [facility] Protocol Vancomycin Protocol 1 lab 08/25/24 23:30 Vancomycin Trough/Random Due 08/26/24 01:30 DAILY [facility] Medical History MRSA (methicillin resistant staph aureus) culture positive Diabetic foot infection Anxiety Cavus deformity of right foot Chronic neck and back pain Limb weakness unexplained bruising Knee pain Diarrhea Hay fever Diabetes Arthritis Hypertension Incisional hernia, with obstruction, without gangrene Obesity Hypertension History of seizures as a child Type II diabetes mellitus Home Medications ?Medication ?Instructions ?Recorded ?Last Taken ?Type ramipril 10 mg capsule 10 mg PO DAILY BLOOD PRESSUR E 10/01/14 05/06/17 07:00 History atorvastatin 40 mg tablet 40 mg PO DAILY CHOLESTEROL 1 05/15/23 Unknown History cyclobenzaprine 10 mg tablet 10 mg PO TID PRN MUSCLE S PASMS 03/15/24 Unknown History insulin aspart U-100 100 unit/mL 8 unit subcut TIDCM D IABETES 03/15/24 Unknown History (3 mL) subcutaneous pen nifedipine 90 mg tablet,extended 90 mg PO DAILY HEART/ BLOOD PRESSURE 03/15/24 Unknown History release 24 hr tadalafil 20 mg tablet 20 mg PO DAILY PRN ERECTILE 03/15/24 Unknown History DYSFUNCTION ibuprofen-diphenhydramine citrate 2 cap PO QHS sleep a valencia 08/17/24 Unknown History 200 mg-38 mg tablet (Advil PM) insulin glargine 100 unit/mL (3 35 unit subcut QHS KENY BETES 08/17/24 Unknown History mL) subcutaneous pen (Lantus Solostar U-100 Insulin) Allergy/AdvReac Type Severity Reaction Status Date / Time codeine Allergy Mild Hives Verified 08/16/24 12:21 dulaglutide (From Trulicity) Allergy hives Verified 08/16/24 13:06 acetaminophen (From Percocet) AdvReac Nausea Verified 08/16/24 12:21 oxycodone (From Percocet) AdvReac Nausea Verified 08/16/24 12:21 Family History Other Diabetes Heart disease Hypertension Surgical History H/O ventral hernia repair S/P ORIF (open reduction internal fixation) fracture Social History housing: apartment Smoking Status: Never smoker alcohol intake: current alcohol intake frequency: holidays/special occasions only Review of Systems (Anesthesia) ROS Narrative System reviewed and no additional complaints, except as documented.
--- NOTE | 2024-08-24 14:00 | BON_PTH ---
PATIENT: SHERRI CROWE LOC: MS3 U#:[id number] AGE/SX: 59/M ROOM: NE313 RE08/16/[address]: Dr. Daniel Khoury DO : 1965 BED: 1 DIS: 08/28/2024 SPEC #: [id number] RECD: 08/24/24 16:41 STATUS: MIAH REQ #: [id number] MINOR: 08/24/24 14:[address]: Allen Joyce DEPT: SURGICAL PATHOLOGY RECD BY: Liliana Corey ENTERED: 08/27/24 07:29 SP TYPE: Bone OTHR DR: MD Dr. Oliver Presley, DO Dr. Gerald Tee, DO Dr. Daniel Khoury, MD Dr. Rob Fisher Dr., MD Tissues: A - Bone of foot, NOS Procedures: Decalcification bone/plaque Surgery Specimen Level IV Comments: @ Ordering doctor for DEC edited from to @ by MAEVE at 08/27/24 09 @ Ordering doctor for SUIV edited from to @ by MAEVE at 08/27/24 0901 @ Submitting doctor edited from to @ by MAEVE at 08/27/2401 HEADER OPERATION: Incision drainage abscess, wound debridement, right midfoot PRE-OP DIAGNOSIS: Diabetic foot infection, cavus deformity of right foot, type 2 diabetes mellitus with foot ulcer TISSUE SUBMITTED: A- 5th metatarsal right foot MICROSCOPIC DIAGNOSIS A. Right foot, fifth metatarsal, excision: * Osteomyelitis. MICROSCOPIC DESCRIPTION Slides are reviewed. GROSS DESCRIPTION A. Received in formalin in a container labeled with the patient's name, date of , and path: Fifth metatarsal R foot is a 2.0 x 0.8 x 0.7 cm fragment of puga-brown and roughened tissue. Sectioning reveals puga-brown, firm bone. Submitted entirely following decalcification. [facility] 08-27-2024 CPT:86241,86528
--- NOTE | 2024-08-24 14:28 | HP.PCM_ITS ---
HPI - General General Date of Admission: 08/16/24 Chief Complaint: non healing ulcer, osteomyelitis HPI Narrative SHERRI CROWE, is a 59 M who presents with chronic ulcer and chronic om [facility] Medical History MRSA (methicillin resistant staph aureus) culture positive Diabetic foot infection Anxiety Cavus deformity of right foot Chronic neck and back pain Limb weakness unexplained bruising Knee pain Diarrhea Hay fever Diabetes Arthritis Hypertension Incisional hernia, with obstruction, without gangrene Obesity Hypertension History of seizures as a child Type II diabetes mellitus Home Medications ?Medication ?Instructions ?Recorded ?Last Taken ?Type ramipril 10 mg capsule 10 mg PO DAILY BLOOD PRESSUR E 10/01/14 05/06/17 07:00 History atorvastatin 40 mg tablet 40 mg PO DAILY CHOLESTEROL 1 05/15/23 Unknown History cyclobenzaprine 10 mg tablet 10 mg PO TID PRN MUSCLE S PASMS 03/15/24 Unknown History insulin aspart U-100 100 unit/mL 8 unit subcut TIDCM D IABETES 03/15/24 Unknown History (3 mL) subcutaneous pen nifedipine 90 mg tablet,extended 90 mg PO DAILY HEART/ BLOOD PRESSURE 03/15/24 Unknown History release 24 hr tadalafil 20 mg tablet 20 mg PO DAILY PRN ERECTILE 03/15/24 Unknown History DYSFUNCTION ibuprofen-diphenhydramine citrate 2 cap PO QHS sleep a valencia 08/17/24 Unknown History 200 mg-38 mg tablet (Advil PM) insulin glargine 100 unit/mL (3 35 unit subcut QHS KENY BETES 08/17/24 Unknown History mL) subcutaneous pen (Lantus Solostar U-100 Insulin) Allergy/AdvReac Type Severity Reaction Status Date / Time codeine Allergy Mild Hives Verified 08/16/24 12:21 dulaglutide (From Trulicity) Allergy hives Verified 08/16/24 13:06 acetaminophen (From Percocet) AdvReac Nausea Verified 08/16/24 12:21 oxycodone (From Percocet) AdvReac Nausea Verified 08/16/24 12:21 Family History Other Diabetes Heart disease Hypertension Surgical History H/O ventral hernia repair S/P ORIF (open reduction internal fixation) fracture Social History housing: apartment Smoking Status: Never smoker alcohol intake: current alcohol intake frequency: holidays/special occasions only Vital Signs Vital Signs Vital Signs: 08/23/24 14:35 08/23/24 20:32 08/23/24 22:11 Temperature 97.5 F L 97.8 F Temperature Source Temporal Oral Pulse Rate 95 78 Pulse Strength Normal (2+) Respiratory Rate 16 16 Respiratory Effort Respiratory Depth Respiratory Pattern Blood Pressure 108/63 141/69 H Blood Pressure Mean 78 93 Blood Pressure Source Monitor Monitor Blood Pressure Position Sitting Sitting Blood Pressure Location Left Arm Right Arm Pulse Ox 97 96 Oxygen Delivery Method Room Air Room Air 08/23/24 22:19 08/24/24 04:51 08/24/24 07:46 Temperature 97.5 F L 97.6 F L Temperature Source Oral Oral Pulse Rate 73 78 Pulse Strength Respiratory Rate 16 16 Respiratory Effort Normal Non-Labored Respiratory Depth Normal Respiratory Pattern Normal Blood Pressure 112/59 L 143/73 H Blood Pressure Mean 76 96 Blood Pressure Source Monitor Monitor Blood Pressure Position Semi-Fowlers Semi-Fowlers Blood Pressure Location Right Arm Right Arm Pulse Ox 95 95 Oxygen Delivery Method Room Air Room Air 08/24/24 09:03 08/24/24 09:18 08/24/24 11:59 Temperature 98.0 F Temperature Source Oral Pulse Rate 83 Pulse Strength Normal (2+) Respiratory Rate 17 Respiratory Effort Normal Non-Labored Respiratory Depth Normal Respiratory Pattern Normal Blood Pressure 140/77 H Blood Pressure Mean 98 Blood Pressure Source Monitor Blood Pressure Position Sitting Blood Pressure Location Right Arm Pulse Ox 98 Oxygen Delivery Method Room Air Room Air 08/24/24 13:41 Temperature 98.0 F Temperature Source Pulse Rate 83 Pulse Strength Respiratory Rate 17 Respiratory Effort Respiratory Depth Respiratory Pattern Blood Pressure 140/77 H Blood Pressure Mean Blood Pressure Source Blood Pressure Position Blood Pressure Location Pulse Ox 98 Oxygen Delivery Method Weight Weight: 127.7 kg Body Mass Index (BMI) 36.1 Physical Exam Narrative alert active and oriented and doing well ready to ahve surgery, all risks discussed with the patient Const oriented x3 Results Lab / Micro Data 08/24/24 03:36 08/24/24 03:36 Labs: Laboratory Results - last 24 hr 08/23/24 16:01: POC Glucose 145 H 08/23/24 22:14: POC Glucose 157 H 08/24/24 03:36: WBC 8.8, RBC 5.08, Hgb 14.3, Hct 42.5, MCV 83.7, MCH 28.1, MCHC 33.6, RDW Std Deviation 38.3, RDW Coeff of Faheem 12.7, Plt Count 360, MPV 8.8, I mmature Gran % (Auto) 3.400 H, Neut % (Auto) 69.3, Lymph % (Auto) 15.2 L, [place] % (Auto) 6.6, Eos % (Auto) 4.5, Baso % (Auto) 1.0, Absolute Neuts (auto) 6.1, Absolute Lymphs (auto) 1.33, Nucleated RBC % 0, Sodium 134, Potassium 4.1, Chloride 101, Carbon Dioxide 22.4, Anion Gap 11, BUN 32 H, Creatinine 1.53 H, Estim Creat Clear Calc 75.65, Est GFR (MDRD) Non-Af 53 L, BUN/Creatinine Ratio 21.2 H, Glucose 147 H, Calcium 9.4, Vancomycin Trough 23.3 H 08/24/24 06:17: POC Glucose 177 H 08/24/24 11:22: POC Glucose 204 H 08/24/24 11:30: Random Vancomycin 17.7 H Assessment & Plan Assessment/Plan (1) Diabetic foot infection: (2) Cavus deformity of right foot: PLAN: plan for external fixation frame and debridement of sole ulcer and treatment of the right foot and f/ then (3) Type 2 diabetes mellitus with foot ulcer:
--- NOTE | 2024-08-24 16:00 | RAD_ITS ---
EXAM: Right foot CLINICAL HISTORY: Wound debridement TECHNIQUE: One view FINDINGS: 40 seconds of fluoroscopy of the right foot was utilized in the operating room during wound debridement and a single image is submitted for interpretation. RAD/Foot 2 Views IMPRESSION: Fluoroscopy during wound debridement. Reading Location: [id number]
[2024-08-24] MEDS: Bupivacaine 0.25% 30 ML Vial (16:22)
--- NOTE | 2024-08-24 16:35 | PCM.POST.ANE ---
Anesthesia: Postop Eval I Current Vital Signs Temperature: 98.8 F Pulse Rate: 109 Blood Pressure: 95/63 Respiratory Rate: 18 Pulse Ox: 91 Assessment Airway patent: Yes Spontaneous unlabored respirations: Yes nausea: No Vomiting: No Anesthesia Complication: No Fluid Hydration Crystalloid volume administer (ml): 500 Total IV fluid infused: 500 Progress Note Anesthesia document: Postop Eval 1 completed: Yes
--- NOTE | 2024-08-24 16:46 | PCM.OPRPT ---
Operative Report (Standard) Operative Information Date of Procedure: 08/24/24 Pre-Operative Diagnosis: osteomyelitis, right foot, non healing ulcer, cavus foot type Post-Operative Diagnosis: same Surgery/Procedure Performed: 1. rotational and advancement flap right foot 2. cuboid or tarsal osteotomy 3. INcision and drainage bone cortex right 5th metatarsal 4. Application of integra mesh graft 2x2in pinion sorter: No Type of Anesthesia: MAC RN Documented Start/Stop Times: Operation Date: 08/24/24 14:00 Case Time Into Pre-Op 08/24/24 12:56 Out of Pre-Op 08/24/24 15:15 Anesthesia Start 08/24/24 15:21 Into Room 08/24/24 15:21 Procedure Start 08/24/24 15:39 Procedure End 08/24/24 16:22 Anesthesia End 08/24/24 16:30 Out of Room 08/24/24 16:30 Into Recovery 08/24/24 16:32 Procedure Start Time: 15:39 Procedure Stop Time: 16:22 Select all DRAINS/GRAFTS/IMPLANTS that apply: Graft Graft details: 2x2 integra meshed graft Special Medications: integra 2x2 inch Estimated Blood Loss: 20 Specimen collected: Yes Description of specimen(s) removed: bone 5th metatarsal Description of surgery: Patient seen in the hospital for right foot non healing ulcer with infected bone right foot and chronic cavus foot type and rigid lateral column. Patient has failed all conservative methods and has infected 5th metatarsal bone. recommend then for surgery and was going to do external fixator and now will plan for osteotomy and bone resection as the frame was contaminated Patient understands all risks complciations and benefits of the surgery. Patient seen in the OR and today the patient was seen in the preop holding area and then the patient was taken back to the OR and placed on the table an then the pateint placed under MAC sedation and then scrubbed prepped and draped. Then the right foto was then attention directed to it and then injected with local of 10ccs of marcaine plan to the rigth foot. then the right foot was then scrubbed prepped and draped to the area. Attention directed to the right foot and the ulcer on the bottom was 4cm x 3.5 cm and 0.4 in depth and then the wound was then cut out completely and excised and then the tissue was debrided into and including bone and tissue and all devitalized and necreotic tissue then removed from the wound. Then incision and drainage of bone cortex was then made and the incision was made on the side of the 5th metatarsal and into bone of the right foot. currette and bone juanita was then used to incise the bone, drain the necrotic bone and sent for pathology and cultue. Then flushed and closed with prolene Then the wound was cut on either side to create a skin wound flap of the wound and the excised the necrotic tissue and flap was then made the flap was 3cm x 1.5cm and the flap was created on either side of the wound and then skin was then undermined of the surrounding tissue and the flap was then mobilized from one side to the other and then the skin was moved and folded over and then the wound was then flushed. Then integra graft was then cut in half it was meshed. and the dermal layer was put into the wound and then the flap was created and closed with 2-0 prolene and shivam and then the graft applied with shivam the other half. Then this was complete Next using fluoro then a cuboid osetoeotmy or tarsal bone osteotomy was then made and i made a laterl incision and checked on fluoroscopy for this and then the juanita was then introduced, check on fluoro for this and then it was cut and a througha nd through osteotomy was then made and check for movement and finshed with an osteotomy. lateral colum was moveable. then flused and incision closed and then all dressed with adaptic and dsd and multilayer comression applied. Will remain nwb and f/u then. may not need the frame after all. Surgical Findings: osteomyelitis right foot Complications Complications: No Admit VTE Documentation VTE Present on Admission: No
--- NOTE | 2024-08-24 16:50 | POSTOPAN2_ITS ---
Anesthesia Postop Eval I Sum Postop Eval Completion status Anesthesia document: Postop Eval 1 completed: Yes Anesthesia Postop Eval I Summary Anesthesia Postop Eval I Summary: Anesthesia Postop Eval I: Assessment Summary Airway patent Yes 08/24/24 16:35 [email or web address] Spontaneous unlabored Yes 08/24/24 16:35 [email or web address] respirations Mental status nausea No 08/24/24 16:35 [email or web address] Vomiting No 08/24/24 16:35 [email or web address] Anesthesia Postop Eval I: Fluid Summary Crystalloid volume administer 500 08/24/24 16:35 [email or web address] (ml) Colloids volume administered ( ml) Blood Product volume administered (ml) Total IV fluid infused 500 08/24/24 16:35 [email or web address] Anesthesia Postop Eval I: Summary Notes Anesthesia Complication No 08/24/24 16:35 [email or web address] Anesthesia Complication Comment: Post-operative progress note Anesthesia: Postop Eval II Evaluation Mental status: Awake Pain Level: 0 nausea: No Vomiting: No
--- NOTE | 2024-08-24 16:50 | PCM.POSTANE2 ---
Anesthesia Postop Eval I Sum Postop Eval Completion status Anesthesia document: Postop Eval 1 completed: Yes Anesthesia Postop Eval I Summary Anesthesia Postop Eval I Summary: Anesthesia Postop Eval I: Assessment Summary Airway patent Yes 08/24/24 16:35 [email or web address] Spontaneous unlabored Yes 08/24/24 16:35 [email or web address] respirations Mental status nausea No 08/24/24 16:35 [email or web address] Vomiting No 08/24/24 16:35 [email or web address] Anesthesia Postop Eval I: Fluid Summary Crystalloid volume administer 500 08/24/24 16:35 [email or web address] (ml) Colloids volume administered ( ml) Blood Product volume administered (ml) Total IV fluid infused 500 08/24/24 16:35 [email or web address] Anesthesia Postop Eval I: Summary Notes Anesthesia Complication No 08/24/24 16:35 [email or web address] Anesthesia Complication Comment: Post-operative progress note Anesthesia: Postop Eval II Evaluation Mental status: Awake Pain Level: 0 nausea: No Vomiting: No
[2024-08-24 16:59] LABS: Bedside Glucose 158 mg/dL (74-106)
[2024-08-24 18:01] LABS: Bedside Glucose 169 mg/dL (74-106)
[2024-08-24] MEDS: Insulin Lispro 100 UNIT/ML INSULN.PEN 8 UNIT SC (18:28)
[2024-08-24] MEDS: Atorvastatin Calcium 40 MG Tablet PO (21:37)
[2024-08-24] MEDS: Insulin Glargine-YFGN 100 UNIT/ML Pen 20 UNIT SC (21:40)
[2024-08-24] MEDS: Ibuprofen 400 MG Tablet PO (23:24)
[2024-08-24] MEDS: DiphenhydrAMINE 25 MG Capsule 50 MG PO (23:24)
[2024-08-24] MEDS: cycloBENZAPRine HCl 10 MG Tablet PO (23:24)
[2024-08-24 23:40] LABS: Bedside Glucose 220 mg/dL (74-106)
[2024-08-25] MEDS: Vancomycin HCl 750 MG in 0.9% Normal Saline (250mL Bag) 250 ML 250 MG IV ×2 (01:30→12:59)
[2024-08-25 06:04] VITALS: BP 146/74; PULSE 85; RESP 16; TEMP 36.5; O2SAT 95
[2024-08-25] MEDS: Meropenem 1 GM in 0.9% Normal Saline (100mL MB+) 100 ML IV ×3 (06:05→22:46)
[2024-08-25] MEDS: Insulin Lispro 100 UNIT/ML INSULN.PEN SC ×4 (06:17→22:52)
[2024-08-25 06:32] LABS: Absolute Lymphocyte Count 0.98 X10^3/uL (0.83-4.51); Absolute Neutrophil Count 6.3 X10^3/uL (2.0-7.7); Basophil# 0.06 X10^3/uL; Basophil% 0.7 % (0-1); Eosinophil# 0.39 X10^3/uL; Eosinophils% 4.4 % (0-5); Hemoglobin 13.1 g/dL (13.0-16.5); Lymphocyte # 0.98 X10^3/ul (0.83-4.51); Mean Corp Hgb Conc 33.6 g/dL (32-36); Mean Corpuscular Hgb 28.4 pg (27.0-32.0); Mean Corpuscular Volume 84.4 fL (80-94); Mean Platelet Vol. 8.8 fl (6.2-12.0); Monocyte% 11.2 % (0-10); NRBC Flagged by Analyzer 0 % (0-5); Neutrophil % 70.6 % (47-70); Platelet Count 355 K/mm3 (150-450); RBC Distribution Width CV 13.2 % (11.6-14.6); RBC Distribution Width SD 39.6 fl (35.1-43.9); Red Blood Count 4.62 M/mm3 (4.6-6.2); White Blood Count 8.9 K/mm3 (4.4-11.0)
[2024-08-25 07:11] LABS: Bedside Glucose 158 mg/dL (74-106)
[2024-08-25 07:14] LABS: Anion Gap 9 (5-15); BUN 28 mg/dL (4-19); BUN/Creat Ratio 20.6 RATIO (10-20); Calcium,Total 8.8 mg/dL (7.6-11.0); Carbon Dioxide 20.9 mmol/L (21.0-32.0); Chloride 103 mmol/L (98-108); Creatinine, Serum 1.37 mg/dL (0.70-1.20); EST Glomerular Filtration Rate 60 (>60); Estimated Creatinine Clearance 84.48 ml/min (50-250); Glucose 152 mg/dL (70-99); Potassium 3.9 mmol/L (3.3-5.1); Sodium Level 134 mmol/L (133-145)
[2024-08-25] MEDS: Juven (unflavored) Packet 1 PACKET PO ×2 (08:20→16:58)
[2024-08-25] MEDS: Insulin Lispro 100 UNIT/ML INSULN.PEN 8 UNIT SC ×3 (08:30→16:58)
--- NOTE | 2024-08-25 09:08 | CASEMGMT ---
Social Work SW met w/pt, confirmed w/pt he does want to return home rather than go to an extended care facility. CM aware and will continue to follow for IV antibiotics and possible wound care. JUANCARLOS Brown
[2024-08-25] MEDS: NIFEdipine 90 MG Tablet PO (10:18)
[2024-08-25] MEDS: Ramipril 10 MG Capsule PO (10:18)
[2024-08-25 10:30] VITALS: BP 139/84; PULSE 95; RESP 18; TEMP 36.7; O2SAT 100
[2024-08-25 10:32] VITALS: PULSE 95
[2024-08-25 11:58] LABS: Bedside Glucose 190 mg/dL (74-106)
--- NOTE | 2024-08-25 13:54 | PN.HOSP_ITS ---
Subjective Subjective Doing well, no issues overnight. Pain is controlled. Will place a PICC line for long-term IV antibiotics secondary to his MRSA bacteremia and foot infection. Objective Data Objective Data Vital Signs: Vital Signs Temp Pulse Resp BP Pulse Ox O2 Del Method 98.0 F 95 18 139/84 H 100 Room Air 08/25/24 10:30 08/25/24 10:32 08/25/24 10:30 08/25/24 10:30 08/25/24 10:30 08/25/24 10:30 Oxygen Delivery Method Room Air Weight: 281 lb 8.485 oz Body Mass Index (BMI) 36.1 Intake & Output: Intake and Output for Last 24 Hours 08/24/24 08/25/24 08/26/24 03:59 03:59 03:59 Intake Total 2430 / 2430 1090 / 1090 320 / 320 Output Total 1250 / 1250 1550 / 1550 550 / 550 Balance 1180 / 1180 -460 / -460 -230 / -230 Lab / Micro Data 08/25/24 05:58 08/25/24 05:58 Labs: Laboratory Results - last 24 hr 08/24/24 16:41: POC Glucose 158 H 08/24/24 17:41: POC Glucose 169 H 08/24/24 21:39: POC Glucose 220 H 08/25/24 05:58: WBC 8.9, RBC 4.62, Hgb 13.1, Hct 39.0 L, MCV 84.4, MCH 28.4, MCHC 33.6, RDW Std Deviation 39.6, RDW Coeff of Faheem 13.2, Plt Count 355, MPV 8.8, Immature Gran % (Auto) 2.100 H, Neut % (Auto) 70.6 H, Lymph % (Auto) 11.0 L , [place] % (Auto) 11.2 H, Eos % (Auto) 4.4, Baso % (Auto) 0.7, Absolute Neuts (auto) 6.3, Absolute Lymphs (auto) 0.98, Nucleated RBC % 0, Sodium 134, Potassium 3.9, Chloride 103, Carbon Dioxide 20.9 L, Anion Gap 9, BUN 28 H, C reatinine 1.37 H, Estim Creat Clear Calc 84.48, Est GFR (MDRD) Non-Af 60, B UN/Creatinine Ratio 20.6 H, Glucose 152 H, Calcium 8.8 08/25/24 06:16: POC Glucose 158 H 08/25/24 11:35: POC Glucose 190 H Micro: Microbiology 08/24/24 Unknown Bone - 5th Toe Wound Culture - Preliminary Staphylococcus species 08/17/24 09:20 Wound - Right Foot Gram Stain - Final 08/17/24 09:20 Wound - Right Foot Wound Culture - Final Pseudomonas aeruginosa Klebsiella oxytoca Staphylococcus sciuri Meth. resistant Staph. aureus Actinomyces bovis 08/17/24 09:20 Wound - Right Foot Anaerobic Culture - Final Actinotignum schaalii 08/17/24 13:35 Blood Culture (Wb) - Anticubital Left Blood Culture - Final No growth in 5 days. 08/17/24 13:43 Blood Culture (Wb) - Left Hand Blood Culture - Final No growth in 5 days. 08/16/24 12:53 Blood Culture (Wb) - Right Wrist Bacteria Detection (PCR) - Final Strep not Strep pneumo 08/16/24 12:53 Blood Culture (Wb) - Right Wrist Blood Culture - Final Meth. resistant Staph. aureus Streptococcus mitis/ oralis 08/16/24 12:53 Blood Culture (Wb) - Right Wrist Blood Culture - Final Staphylococcus aureus 08/16/24 14:50 Urine, Clean Catch Urine Culture - Final Culture exhibits no growth. 08/16/24 12:56 Mucosa - Nose SARS-CoV-2, Influenza & RSV (PCR) - Final Radiography Diagnostic Testing: Radiology Impression Foot X-Ray 08/24/24 16:00 IMPRESSION: Fluoroscopy during wound debridement. Reading Location: [facility] Physical Exam Narrative General: Alert, Oriented x3, Cooperative, No apparent distress HEENT: Atraumatic, PERRLA, EOMI, Normocephalic Oral: Moist Mucosa Neck: Supple, No JVD Lungs: Diminished, Normal air movement, No rhonchi, No wheeze, No rales Cardiovascular: Regular rate, Regular Rhythm, Normal S1, Normal S2, No murmurs Abdomen: Soft, Non Tender, Non-Distended, No Hepato-splenomegaly Extremities: No edema, Capillary Refill Less than 3 Seconds Skin: Right lateral foot wound with surrounding erythema and serous drainage, dressing intact Musculoskeletal: No Tenderness to Palpation of Joints or Extremities Neurological: No focal neurological deficits, Motor Exam 5/5 strength throughout, bilateral lower extremity peripheral neuropathy Psych/Mental Status: Normal Affect, Appropriate Assessment & Plan Assessment/Plan (1) Diabetic foot infection: (2) Bacteremia: PLAN: Plan 1. Diabetic foot infection with osteomyelitis and bacteremia in the setting of a previous fifth metatarsal resection ? Foot x-ray demonstrates possible osteomyelitis, MRI confirms osteomyelitis ?Continue with PICC placement today, and await ID antibiotic prescriptions on Tuesday as he was bacteremic with MRSA with no endocarditis and polymicrobial osteomyelitis ?He had surgery on 08/24/2024 ? Continue with vancomycin and Zosyn, appreciate infectious disease assistance ?GABRIELLA is negative for vegetations ? Wound culture demonstrated Pseudomonas as well as Klebsiella and actinomyces and MRSA ?A1c of 7.8 ?Continue with insulin ? Accu-Cheks ACHS ? Will monitor make adjustments as necessary 2. Essential HTN/HLD ? Will hold his blood pressure medications for the moment while treating his infection can restart in 24 to 48 hours ? Continue with Lipitor ? Will monitor make adjustments as necessary 3. CKD 3 ? It does appear that his creatinine is near baseline of 1.6 DVT: Heparin Charges/Coding Visit Charges Inpatient E&M: 56484 Subs Hosp L2
[2024-08-25 16:05] VITALS: BP 133/81; PULSE 90; RESP 18; TEMP 36.7; O2SAT 98
--- NOTE | 2024-08-25 17:04 | NURSING ---
WOUND VAC CANISTER CHANGED WITH PRIMARY RN KIRK. IRRIGATIONS SETTING REVIEWED WITH DR. WALLER BEDSIDE.
[2024-08-25 17:23] LABS: Bedside Glucose 221 mg/dL (74-106)
--- NOTE | 2024-08-25 19:20 | RAD_ITS ---
PROCEDURE: CHEST 1 VIEW (PORTABLE) 08/25/2024 REASON FOR EXAM: PICC PLACEMENT TECHNIQUE: Frontal view of the chest. COMPARISON: Chest radiograph dated 08/16/2024 FINDINGS: Hardware: Interval placement of a right-sided PICC line, terminating within the SVC. Heart: The heart size is normal. Lungs: The lungs are clear. Bones: The bones are unremarkable. Other: RAD/Chest 1 View (Portable) IMPRESSION: Right-sided PICC line terminates within the SVC. Reading Location: [facility]
[2024-08-25 22:45] VITALS: BP 143/79; PULSE 100; RESP 16; TEMP 36.6; O2SAT 98
[2024-08-25] MEDS: Atorvastatin Calcium 40 MG Tablet PO (22:46)
[2024-08-25] MEDS: Insulin Glargine-YFGN 100 UNIT/ML Pen 20 UNIT SC (22:52)
[2024-08-25] MEDS: Ibuprofen 400 MG Tablet PO (22:59)
[2024-08-25] MEDS: cycloBENZAPRine HCl 10 MG Tablet PO (22:59)
[2024-08-25] MEDS: DiphenhydrAMINE 25 MG Capsule 50 MG PO (22:59)
[2024-08-25] MEDS: Ondansetron 4 MG/2 ML Vial IV (22:59)
[2024-08-25 23:13] LABS: Bedside Glucose 151 mg/dL (74-106)
[2024-08-26 01:20] LABS: Vancomycin, Trough Level 16.5 ug/mL (5.0-15.0)
[2024-08-26] MEDS: Vancomycin HCl 750 MG in 0.9% Normal Saline (250mL Bag) 250 ML 250 MG IV ×2 (01:43→12:55)
--- NOTE | 2024-08-26 01:44 | PCM.RX.CS ---
Consult Antibiotic Management Pharmacy has been consulted to manage selected antibiotic: Vancomycin Type of Intervention Type of Consult: Follow-up Labs Labs: Sodium 134 mmol/L (133-145) 08/25/24 05:58 Potassium 3.9 mmol/L (3.3-5.1) 08/25/24 05:58 Chloride 103 mmol/L (98-108) 08/25/24 05:58 Carbon Dioxide 20.9 mmol/L (21.0-32.0) L 08/25/24 05:58 Anion Gap 9 (5-15) 08/25/24 05:58 BUN 28 mg/dL (4-19) H 08/25/24 05:58 Creatinine 1.37 mg/dL (0.70-1.20) H 08/25/24 05:58 Est GFR (MDRD) Non-Af 60 (>60) 08/25/24 05:58 BUN/Creatinine Ratio 20.6 RATIO (10-20) H 08/25/24 05:58 Glucose 152 mg/dL (70-99) H 08/25/24 05:58 Vancomycin Trough 16.5 ug/mL (5.0-15.0) H 08/26/24 00:30 Random Vancomycin 17.7 ug/mL (0.0-15.0) H 08/24/24 11:30 Microbiology Microbiology: Microbiology 08/24/24 Unknown Bone - 5th Toe Gram Stain - Final 08/24/24 Unknown Bone - 5th Toe Wound Culture - Preliminary Staphylococcus species 08/17/24 09:20 Wound - Right Foot Gram Stain - Final 08/17/24 09:20 Wound - Right Foot Wound Culture - Final Pseudomonas aeruginosa Klebsiella oxytoca Staphylococcus sciuri Meth. resistant Staph. aureus Actinomyces bovis 08/17/24 09:20 Wound - Right Foot Anaerobic Culture - Final Actinotignum schaalii 08/17/24 13:35 Blood Culture (Wb) - Anticubital Left Blood Culture - Final No growth in 5 days. 08/17/24 13:43 Blood Culture (Wb) - Left Hand Blood Culture - Final No growth in 5 days. 08/16/24 12:53 Blood Culture (Wb) - Right Wrist Bacteria Detection (PCR) - Final Strep not Strep pneumo 08/16/24 12:53 Blood Culture (Wb) - Right Wrist Blood Culture - Final Meth. resistant Staph. aureus Streptococcus mitis/ oralis 08/16/24 12:53 Blood Culture (Wb) - Right Wrist Blood Culture - Final Staphylococcus aureus 08/16/24 14:50 Urine, Clean Catch Urine Culture - Final Culture exhibits no growth. 08/16/24 12:56 Mucosa - Nose SARS-CoV-2, Influenza & RSV (PCR) - Final Goal Trough Goal Trough: 15-20 mcg/mL Pharmacy Plan for Drug Dosing Pharmacy Plan for Drug Dosing: Pharmacy Service will continue to monitor and adjust dosing as required. TROUGH 16.5 @ 11.5 HOURS. NO CHANGES, FOLLOW UP TROUGH IN 2 DAYS Follow-Up Labs Follow-Up Labs: Trough: Vancomycin Date/Time Labs Ordered Labs to be done on [date and time ordered]: 08/28 @ 0037
[2024-08-26] MEDS: Vancomycin Trough/Random Due 1 LAB MC (01:49)
[2024-08-26] MEDS: Meropenem 1 GM in 0.9% Normal Saline (100mL MB+) 100 ML IV ×3 (05:08→22:53)
[2024-08-26 06:24] VITALS: BP 132/67; PULSE 82; RESP 16; TEMP 36.6; O2SAT 99
[2024-08-26 06:58] LABS: Bedside Glucose 141 mg/dL (74-106)
--- NOTE | 2024-08-26 08:49 | PCM.PN.HOSP ---
Subjective Subjective PICC line was placed yesterday in his right upper extremity, awaiting antibiotic recommendations tomorrow prior to discharge Objective Data Objective Data Vital Signs: Vital Signs Temp Pulse Resp BP Pulse Ox O2 Del Method 97.8 F 82 16 132/67 H 99 Room Air 08/26/24 06:24 08/26/24 06:24 08/26/24 06:24 08/26/24 06:24 08/26/24 06:24 08/26/24 06:24 Oxygen Delivery Method Room Air Weight: 281 lb 8.485 oz Body Mass Index (BMI) 36.1 Intake & Output: Intake and Output for Last 24 Hours 08/25/24 08/26/24 08/27/24 03:59 03:59 03:59 Intake Total 1090 / 1090 3675 / 3675 200 / 200 Output Total 1550 / 1550 2775 / 2775 650 / 650 Balance -460 / -460 900 / 900 -450 / -450 Lab / Micro Data 08/25/24 05:58 08/25/24 05:58 Labs: Laboratory Results - last 24 hr 08/25/24 11:35: POC Glucose 190 H 08/25/24 16:52: POC Glucose 221 H 08/25/24 22:52: POC Glucose 151 H 08/26/24 00:30: Vancomycin Trough 16.5 H 08/26/24 06:29: POC Glucose 141 H Micro: Microbiology 08/24/24 Unknown Bone - 5th Toe Gram Stain - Final 08/24/24 Unknown Bone - 5th Toe Wound Culture - Preliminary Staphylococcus species 08/17/24 09:20 Wound - Right Foot Gram Stain - Final 08/17/24 09:20 Wound - Right Foot Wound Culture - Final Pseudomonas aeruginosa Klebsiella oxytoca Staphylococcus sciuri Meth. resistant Staph. aureus Actinomyces bovis 08/17/24 09:20 Wound - Right Foot Anaerobic Culture - Final Actinotignum schaalii 08/17/24 13:35 Blood Culture (Wb) - Anticubital Left Blood Culture - Final No growth in 5 days. 08/17/24 13:43 Blood Culture (Wb) - Left Hand Blood Culture - Final No growth in 5 days. 08/16/24 12:53 Blood Culture (Wb) - Right Wrist Bacteria Detection (PCR) - Final Strep not Strep pneumo 08/16/24 12:53 Blood Culture (Wb) - Right Wrist Blood Culture - Final Meth. resistant Staph. aureus Streptococcus mitis/ oralis 08/16/24 12:53 Blood Culture (Wb) - Right Wrist Blood Culture - Final Staphylococcus aureus 08/16/24 14:50 Urine, Clean Catch Urine Culture - Final Culture exhibits no growth. 08/16/24 12:56 Mucosa - Nose SARS-CoV-2, Influenza & RSV (PCR) - Final Radiography Diagnostic Testing: Radiology Impression Chest X-Ray 08/25/24 19:20 IMPRESSION: Right-sided PICC line terminates within the SVC. Reading Location: [facility] Physical Exam Narrative General: Alert, Oriented x3, Cooperative, No apparent distress HEENT: Atraumatic, PERRLA, EOMI, Normocephalic Oral: Moist Mucosa Neck: Supple, No JVD Lungs: Diminished, Normal air movement, No rhonchi, No wheeze, No rales Cardiovascular: Regular rate, Regular Rhythm, Normal S1, Normal S2, No murmurs Abdomen: Soft, Non Tender, Non-Distended, No Hepato-splenomegaly Extremities: No edema, Capillary Refill Less than 3 Seconds Skin: Right lateral foot wound with surrounding erythema and serous drainage, dressing intact Musculoskeletal: No Tenderness to Palpation of Joints or Extremities Neurological: No focal neurological deficits, Motor Exam 5/5 strength throughout, bilateral lower extremity peripheral neuropathy Psych/Mental Status: Normal Affect, Appropriate Assessment & Plan Assessment/Plan (1) Diabetic foot infection: (2) Bacteremia: PLAN: Plan 1. Diabetic foot infection with osteomyelitis and bacteremia in the setting of a previous fifth metatarsal resection ? Foot x-ray demonstrates possible osteomyelitis, MRI confirms osteomyelitis ?PICC line placed 08/25/2024, and await ID antibiotic prescriptions on Tuesday as he was bacteremic with MRSA with no endocarditis and polymicrobial osteomyelitis ?He had surgery on 08/24/2024 ? Continue with vancomycin and Zosyn, appreciate infectious disease assistance ?GABRIELLA is negative for vegetations ? Wound culture demonstrated Pseudomonas as well as Klebsiella and actinomyces and MRSA ?A1c of 7.8 ?Continue with insulin ? Accu-Cheks ACHS ? Will monitor make adjustments as necessary 2. Essential HTN/HLD ? Will hold his blood pressure medications for the moment while treating his infection can restart in 24 to 48 hours ? Continue with Lipitor ? Will monitor make adjustments as necessary 3. CKD 3 ? It does appear that his creatinine is near baseline of 1.6 DVT: Heparin Charges/Coding Visit Charges Inpatient E&M: 13157 Subs Hosp L2
[2024-08-26 09:04] VITALS: BP 120/68; PULSE 81; RESP 18; TEMP 36.6; O2SAT 98
[2024-08-26] MEDS: NIFEdipine 90 MG Tablet PO (09:07)
[2024-08-26] MEDS: Ramipril 10 MG Capsule PO (09:07)
[2024-08-26] MEDS: Juven (unflavored) Packet 1 PACKET PO ×2 (09:07→16:34)
[2024-08-26] MEDS: Insulin Lispro 100 UNIT/ML INSULN.PEN SC ×3 (11:16→22:58)
[2024-08-26] MEDS: Insulin Lispro 100 UNIT/ML INSULN.PEN 8 UNIT SC ×2 (11:17→16:34)
[2024-08-26 11:48] LABS: Bedside Glucose 240 mg/dL (74-106)
[2024-08-26 14:00] VITALS: BP 121/58; PULSE 80; RESP 18; TEMP 36.7; O2SAT 96
[2024-08-26] MEDS: 0.9% Saline Lock 10 ML Syringe IV (14:10)
[2024-08-26] MEDS: Alteplase 2 MG/2 ML Vial IV (15:19)
[2024-08-26 16:54] LABS: Bedside Glucose 197 mg/dL (74-106)
[2024-08-26 22:49] VITALS: BP 138/62; PULSE 100; RESP 16; TEMP 36.6; O2SAT 97
[2024-08-26] MEDS: Ibuprofen 400 MG Tablet PO (22:52)
[2024-08-26] MEDS: DiphenhydrAMINE 25 MG Capsule 50 MG PO (22:52)
[2024-08-26] MEDS: cycloBENZAPRine HCl 10 MG Tablet PO (22:52)
[2024-08-26] MEDS: Atorvastatin Calcium 40 MG Tablet PO (22:52)
[2024-08-26] MEDS: Insulin Glargine-YFGN 100 UNIT/ML Pen 20 UNIT SC (22:53)
[2024-08-26 23:31] LABS: Bedside Glucose 193 mg/dL (74-106)
[2024-08-27] MEDS: Vancomycin HCl 750 MG in 0.9% Normal Saline (250mL Bag) 250 ML 250 MG IV ×2 (00:23→14:24)
[2024-08-27] MEDS: Meropenem 1 GM in 0.9% Normal Saline (100mL MB+) 100 ML IV ×3 (06:21→21:59)
[2024-08-27] MEDS: Insulin Lispro 100 UNIT/ML INSULN.PEN SC ×4 (06:24→22:00)
[2024-08-27 06:25] VITALS: BP 115/62; PULSE 92; RESP 16; TEMP 36.4; O2SAT 93
[2024-08-27 07:01] LABS: Bedside Glucose 154 mg/dL (74-106)
[2024-08-27 07:40] LABS: Absolute Lymphocyte Count 0.91 X10^3/uL (0.83-4.51); Basophil# 0.06 X10^3/uL; Basophil% 0.6 % (0-1); Eosinophil# 0.43 X10^3/uL; Eosinophils% 4.5 % (0-5); Hematocrit 38.6 % (40-54); Hemoglobin 13.1 g/dL (13.0-16.5); Lymphocyte # 0.91 X10^3/ul (0.83-4.51); Lymphocyte % 9.5 % (19-41); Mean Corp Hgb Conc 33.9 g/dL (32-36); Mean Corpuscular Hgb 28.4 pg (27.0-32.0); Mean Corpuscular Volume 83.5 fL (80-94); Mean Platelet Vol. 8.8 fl (6.2-12.0); Monocyte# 1.03 X10^3/uL; Monocyte% 10.8 % (0-10); NRBC Flagged by Analyzer 0 % (0-5); Neutrophil # 6.99 X10^3/uL (2.7-7.7); Neutrophil % 73.4 % (47-70); Platelet Count 353 K/mm3 (150-450); RBC Distribution Width CV 13.1 % (11.6-14.6); RBC Distribution Width SD 39.4 fl (35.1-43.9); Red Blood Count 4.62 M/mm3 (4.6-6.2); White Blood Count 9.5 K/mm3 (4.4-11.0)
[2024-08-27 08:07] LABS: Anion Gap 10 (5-15); BUN 32 mg/dL (4-19); BUN/Creat Ratio 22.5 RATIO (10-20); Calcium,Total 9.3 mg/dL (7.6-11.0); Carbon Dioxide 21.7 mmol/L (21.0-32.0); Chloride 102 mmol/L (98-108); Creatinine, Serum 1.42 mg/dL (0.70-1.20); EST Glomerular Filtration Rate 58 (>60); Estimated Creatinine Clearance 81.51 ml/min (50-250); Glucose 170 mg/dL (70-99); Potassium 4.3 mmol/L (3.3-5.1); Sodium Level 134 mmol/L (133-145)
[2024-08-27 08:18] VITALS: BP 128/65; PULSE 97; RESP 16; TEMP 36.1; O2SAT 97
[2024-08-27] MEDS: Insulin Lispro 100 UNIT/ML INSULN.PEN 8 UNIT SC ×3 (08:22→16:26)
[2024-08-27] MEDS: Juven (unflavored) Packet 1 PACKET PO ×2 (08:23→16:22)
[2024-08-27] MEDS: Ramipril 10 MG Capsule PO (08:23)
[2024-08-27] MEDS: NIFEdipine 90 MG Tablet PO (08:23)
[2024-08-27] MEDS: DAKIN'S SOL HALF STRENGTH (=0.25%) TOPICAL (08:23)
--- NOTE | 2024-08-27 08:30 | WOUNDNOTE ---
wound photo: right foot
--- NOTE | 2024-08-27 08:31 | WOUNDNOTE ---
wound photo: right foot
--- NOTE | 2024-08-27 08:48 | CASEMGMT ---
Discharge Planning A list of?HH providers including quality and resource use data and consistent with the patient's preferred geographic region, medical needs, and insurance network was created in [employer] Guide.? This list was provided to the RN JOHN. Nickie De Jesus, Discharge Planning Asst.
--- NOTE | 2024-08-27 10:07 | CASEMGMT ---
Addendum entered by Yen Mendez 08/27/24 15:58: Received confirmation that [facility] will arrive tomorrow morning for education of IV. Updated pt. He verbalizes understanding. Addendum entered by Yen Mendez 08/27/24 14:48: No cost for pt medication. Addendum entered by Yen Mendez 08/27/24 14:46: Received tc from Eusebio at [facility], they can accept pt for services on Tuesday if pt has been taught. Eusebio states they can review education with pt. Updated [facility], they will have educator see pt prior to dc but unsure of availability of today or tomorrow. RN CM into pt room, pt sitting up in chair. Discussed with pt the plan for [facility]. Pt agreeable to this. Pt states he is a little agitated as he thought he for sure could go home today. Asked pt if the educator could come today if he would feel comfortable performing the IV's tomorrow on own and then HH coming on Tuesday. Pt states he does not think he could as he doesn't know how much he will retain today if he is taught. Discussed pt staying tonight, having education by [facility] tomorrow and then dc'ing later tomorrow after most doses of IV med and HH coming out on Tuesday. Pt is agreeable to this and feels this is a better plan. Updated hospitalist who states he has not been able to reach the pod on case. Requested [facility] hold off on education until tomorrow. Will await response. DC Plan: Home tomorrow afternoon with [facility] coming to pt home on Tuesday morning for SOC. Addendum entered by Yen Mendez 08/27/24 12:45: [facility] has declined pt for services. Addendum entered by Yen Mendez 08/27/24 11:42: [facility] and [facility] declined pt for care. Requested DC traffic and transport planner call [facility] to check status of referral. Received notification from Jeimy at [facility] that they are not in network for pt insurance. Addendum entered by Yen Mendez 08/27/24 11:29: Referral sent to [facility] for FWW via careport. Addendum entered by Yen Mendez 08/27/24 11:29: 1102- Referral sent to [facility] via careport as well as all [facility] on the list. Original Note: EFRAÍN LOPEZ into pt room, pt sitting up in bed. Discussed dc planning with pt. Pt states he has been doing well with maintaining his non wt bearing with crutches as well as FWW. Pt would like FWW. Discussed that this will be delivered to room as pt has already chosen [facility]. Pt states he does want to go home as he is cg for his mother. He states he would be able to learn the IVs. Discussed HHC and what that encompasses at home. Provided pt with a list of [facility] created by dc safety admin assistant. Pt states there are only 4 on the list and he really does not have a prefence. Made aware that EFRAÍN LOPEZ will send to all agencies and notify him of who accepts and he can chose at that time. Pt agreeable to this. Provided pt with a verbal in network list of [facility], pt chose [facility]. EFRAÍN LOPEZ to follow.
[2024-08-27 11:16] LABS: Bedside Glucose 175 mg/dL (74-106)
--- NOTE | 2024-08-27 11:20 | PN.ID_ITS ---
Physical Exam Narrative Feeling ok, has picc in place, no fever, no n/v/d. Const alert and no apparent distress General Appearance: cooperative Resp normal air movement and clear to auscultation bilaterally Cardio regular rate and regular rhythm GI soft to palpation, non-tender and non-distended Skin no rashes or lesions noted ID ID: Route of nutrition/ use of supplements: [] Nutritional Intake: [] IV Site: [] Cazares Catheter: [] Assessment & Plan Assessment/Plan (1) Bacteremia: PLAN: Strep and MRSA bacteremia due to R DM foot osteo - wound cx with PsA, k lebs, MRSA, CoNS, actino. Podiatry following. Repeat bcx neg since 08/17. Concern for endocarditis due to splinter hemorrhages. Possible veg on TTE. OR planned for foot on 08/23. Cont vanc and nilson. GABRIELLA showed focal calcification in base of aortic valve, appears to be atherosclerotic per report. Taken to OR 08/24/[address] Joyce for I&D with flap. Will write for 6 weeks vanc and nilson with stop date 10/05/24, weekly labs, ID followup in 2 weeks. D/w case management assistant. Will follow (2) Diabetic foot infection: (3) Type 2 diabetes mellitus with diabetic polyneuropathy:
--- NOTE | 2024-08-27 11:32 | CASEMGMT ---
See previous RN CM note. TC to [facility] HH and referral made to Je[facility] for SN and PT and requested SOC be tomorrow to assist with IV ATB needs. [facility] reports that the pt's insurance is likely not in-network but that she would double check. CM to follow.
--- NOTE | 2024-08-27 13:22 | DCINST_ITS ---
Discharge Instructions Diet Discharge Diet: 1800 Calorie Control Diet DC O2, CPAP, BIPAP needs Home O2 Discharge instructions: No Dressing / Incision Discharge Activity: Use Walker and Use Crutches Weight Bearing Status: No weight bearing (Right lower extremity) Dressing / Incision Call your doctor if your incision/area has: Increased Pain/ Swelling, Increased Redness and Foul Smelling Discharge Call your doctor if you observe: Fever of 101 or Higher Cleanse incision/area with: - (Perform dressing changes as instructed by podiatric surgery) Follow Up Care Test Results: Test results from this visit will be discussed in further detail at your follow- up appointment, if applicable. Discharge Plan Admission Admit Date/Time: 08/16/24 15:45 Primary Reason for Your Visit: Osteomyelitis of the fifth right metatarsal Attending Provider: Daniel Khoury Primary Care Provider: Gerald Tee Consulting Providers: Js Ruelas; Allen Joyce; Oliver Samaniego; Rob Lyons Instructions Additional Instructions / Restrictions: I would discourage the routine use of ibuprofen or naproxen for pain due to your mild kidney impairment Discharge Orders/Prescriptions Prescriptions: New vancomycin 750 mg recon soln 750 mg IV Q12H 39 Days Qty: 78 0RF Rx Instructions: stop date 10/05/24. Dx: osteomyelitis. Weekly bmp, cbc, LFT, vanc trough and ESR. Fax to [phone]. Routine picc care per protocol. insulin glargine-yfgn 100 unit/mL (3 mL) Insulin Pen 20 unit subcut QHS Qty: 0 0RF Continued ramipril 10 MG capsule 10 mg PO DAILY atorvastatin 40 mg tablet 40 mg PO DAILY nifedipine 90 mg tablet extended release 24hr 90 mg PO DAILY insulin aspart U-100 100 unit/mL (3 mL) insulin pen 8 unit subcut TIDCM Rx Instructions: INJECT 8 UNITS PLUS SLIDING SCALE BEFORE MEALS. TOTAL OF UP TO 14 UNITS THREE TIMES A DAY WITH MEALS. cyclobenzaprine 10 mg tablet 10 mg PO TID PRN (Reason: MUSCLE SPASMS ) tadalafil 20 mg tablet 20 mg PO DAILY PRN (Reason: ERECTILE DYSFUNCTION ) Advil PM 200-38 mg tablet 2 cap PO QHS Discontinued insulin glargine [Lantus Solostar U-100 Insulin] 100 unit/mL (3 mL) insulin pen 35 unit subcut QHS Rx Instructions: Start on 03/20/2024 Referrals / Follow Up: Allen Joyce MD [Med Staff - Active Staff] - See Referral Note (Within 10 days, call for follow-up appointment) Gerald Tee DO [Primary Care Provider] - Rob Lyons MD [Med Staff - Active Staff] - See Referral Note (In 2 weeks, call for an appointment) Disposition Disposition (needs filled in before D/C Order can be placed): Home Health Service
[2024-08-27 14:42] VITALS: BP 126/66; PULSE 95; RESP 18; TEMP 36.6; O2SAT 97
[2024-08-27 16:58] LABS: Bedside Glucose 160 mg/dL (74-106)
--- NOTE | 2024-08-27 17:51 | PCM.PN.HOSP ---
Reason for Visit Reason for Visit: Diagnoses Type 2 diabetes mellitus with diabetic polyneuropathy (08/16/24) Type 2 diabetes mellitus with foot ulcer (08/16/24) Type 2 diabetes mellitus with other skin complications (08/16/24) Other specified peripheral vascular diseases (08/16/24) Local infection of the skin and subcutaneous tissue, unspecified (08/16/24) Non-pressure chronic ulcer of other part of unspecified foot with unspecified severity (08/16/24) Non-pressure chronic ulcer of other part of left foot with fat layer exposed (08/16/24) Congenital pes cavus, right foot (08/16/24) Bacteremia (08/16/24) Subjective Subjective Patient was seen and examined today, I talked with his internal carver concerning posthospital care of his foot wound, it appeared initially today that the patient would be discharged home but home nursing cannot be arranged for the patient and so he remains in the hospital at this time. Objective Data Objective Data Vital Signs: Vital Signs Temp Pulse Resp BP Pulse Ox O2 Del Method 97.9 F 95 18 126/66 H 97 Room Air 08/27/24 14:42 08/27/24 14:42 08/27/24 14:42 08/27/24 14:42 08/27/24 14:42 08/27/24 14:42 Oxygen Delivery Method Room Air Weight: 127.7 kg Body Mass Index (BMI) 36.1 Intake & Output: Intake and Output for Last 24 Hours 08/25/24 08/26/24 08/27/24 23:59 23:59 23:59 Intake Total 3575 / 3875 2390 / 2390 2720 / 2720 Output Total 2275 / 2775 3675 / 3675 1125 / 1125 Balance 1300 / 1100 -1285 / -1285 1595 / 1595 Lab / Micro Data 08/27/24 07:09 08/27/24 07:09 Labs: Laboratory Results - last 24 hr 08/26/24 22:57: POC Glucose 193 H 08/27/24 06:23: POC Glucose 154 H 08/27/24 07:09: WBC 9.5, RBC 4.62, Hgb 13.1, Hct 38.6 L, MCV 83.5, MCH 28.4, MCHC 33.9, RDW Std Deviation 39.4, RDW Coeff of Faheem 13.1, Plt Count 353, MPV 8.8, Immature Gran % (Auto) 1.200 H, Neut % (Auto) 73.4 H, Lymph % (Auto) 9.5 L, [place] % (Auto) 10.8 H, Eos % (Auto) 4.5, Baso % (Auto) 0.6, Absolute Neuts (auto) 7.0, Absolute Lymphs (auto) 0.91, Nucleated RBC % 0, Sodium 134, Potassium 4.3, Chloride 102, Carbon Dioxide 21.7, Anion Gap 10, BUN 32 H, Creatinine 1.42 H, Estim Creat Clear Calc 81.51, Est GFR (MDRD) Non-Af 58 L, BUN/Creatinine Ratio 22.5 H, Glucose 170 H, Calcium 9.3 08/27/24 10:50: POC Glucose 175 H 08/27/24 16:25: POC Glucose 160 H Micro: Microbiology 08/24/24 Unknown Bone - 5th Toe Gram Stain - Final 08/24/24 Unknown Bone - 5th Toe Wound Culture - Preliminary Meth. resistant Staph. aureus Alpha hemolytic organism 08/24/24 Unknown Bone - 5th Toe Anaerobic Culture - Preliminary Checking for anaerobes, further studies to follow. 08/17/24 09:20 Wound - Right Foot Gram Stain - Final 08/17/24 09:20 Wound - Right Foot Wound Culture - Final Pseudomonas aeruginosa Klebsiella oxytoca Staphylococcus sciuri Meth. resistant Staph. aureus Actinomyces bovis 08/17/24 09:20 Wound - Right Foot Anaerobic Culture - Final Actinotignum schaalii 08/17/24 13:35 Blood Culture (Wb) - Anticubital Left Blood Culture - Final No growth in 5 days. 08/17/24 13:43 Blood Culture (Wb) - Left Hand Blood Culture - Final No growth in 5 days. 08/16/24 12:53 Blood Culture (Wb) - Right Wrist Bacteria Detection (PCR) - Final Strep not Strep pneumo 08/16/24 12:53 Blood Culture (Wb) - Right Wrist Blood Culture - Final Meth. resistant Staph. aureus Streptococcus mitis/ oralis 08/16/24 12:53 Blood Culture (Wb) - Right Wrist Blood Culture - Final Staphylococcus aureus 08/16/24 14:50 Urine, Clean Catch Urine Culture - Final Culture exhibits no growth. 08/16/24 12:56 Mucosa - Nose SARS-CoV-2, Influenza & RSV (PCR) - Final Physical Exam Const alert, oriented x3, no apparent distress and healthy appearing General Appearance: cooperative, well kempt and well developed Orientation / Consciousness: awake, oriented to person, oriented to place and oriented to time HEENT normocephalic, head/scalp atraumatic and moist oral mucous membranes Eyes PERRL, EOMs intact bilaterally and conjunctivae normal Neck supple, no JVD, thyroid normal and no carotid bruits General: trachea midline Resp normal respiratory effort, no retractions, no use of accessory muscles and clear to auscultation bilaterally Auscultation: Negative for rales, rhonchi or wheezes Cardio regular rate, regular rhythm, S1 normal heart sound, S2 normal heart sound, no murmurs, no rub and no gallops GI normal to inspection, nondistended, normoactive bowel sounds, soft to palpation, non-tender and non-distended Extremity Extremity Narrative: Right lower extremity is wrapped with surgical dressing and an Eduin wrap, this was not removed to examine the patient's right foot wound Skin Skin Narrative: Right foot was wrapped with surgical dressing and an Eduin wrap, this was not removed for examination of the area Neuro oriented x3, CN's II-XII intact bilaterally and no focal motor deficits Sensorium / Orientation: awake and alert Speech: speech normal Psych affect normal Assessment & Plan Assessment/Plan (1) Diabetic foot infection: PLAN: Plan 1. Right foot infected with strep and MRSA from neuropathic wound secondary to type 2 diabetes-status post cuboid or tarsal osteotomy with incision and drainage of the bone cortex of the right fifth metatarsal and application of mesh graft-patient will continue to be nonweightbearing on the right foot, he is using a walker presently and sometimes crutches. Patient has a PICC line and will require 6 weeks of vancomycin and meropenem with a stop date of 10/05/2024. #2 bacteremia secondary to strep and methicillin resistant Staph aureus-continue present antibiotics per infectious diseases #3 type 2 diabetes-complicates care, management, recovery, and prognosis, sliding scale insulin will be administered as needed #4 diabetic neuropathy-complicates care, management, recovery, and prognosis #5 essential hypertension-patient will remain on his present medications, blood pressure will be monitored Total clinical time spent by myself addressing patient's medical issues, reviewing all of his data, and collaborating with patient's care team: 35 minutes Charges/Coding Visit Charges Inpatient E&M: 91796 Subs Hosp L2
[2024-08-27 21:51] VITALS: BP 147/71; PULSE 81; RESP 16; TEMP 37; O2SAT 100
[2024-08-27] MEDS: 0.9% Saline Lock 10 ML Syringe IV (21:59)
[2024-08-27] MEDS: Atorvastatin Calcium 40 MG Tablet PO (21:59)
[2024-08-27] MEDS: Insulin Glargine-YFGN 100 UNIT/ML Pen 20 UNIT SC (22:00)
[2024-08-27] MEDS: DiphenhydrAMINE 25 MG Capsule 50 MG PO (22:05)
[2024-08-27] MEDS: cycloBENZAPRine HCl 10 MG Tablet PO (22:05)
[2024-08-27] MEDS: Ibuprofen 400 MG Tablet PO (22:05)
[2024-08-28 01:55] LABS: Bedside Glucose 181 mg/dL (74-106)
[2024-08-28 02:06] VITALS: BP 144/82; PULSE 86; RESP 16; TEMP 36.8; O2SAT 99
[2024-08-28] MEDS: Vancomycin HCl 750 MG in 0.9% Normal Saline (250mL Bag) 250 ML 250 MG IV ×2 (02:14→12:41)
--- NOTE | 2024-08-28 02:32 | PCM.RX.CS ---
Consult Antibiotic Management Pharmacy has been consulted to manage selected antibiotic: Vancomycin Type of Intervention Type of Consult: Follow-up Labs Labs: Sodium 134 mmol/L (133-145) 08/27/24 07:09 Potassium 4.3 mmol/L (3.3-5.1) 08/27/24 07:09 Chloride 102 mmol/L (98-108) 08/27/24 07:09 Carbon Dioxide 21.7 mmol/L (21.0-32.0) 08/27/24 07:09 Anion Gap 10 (5-15) 08/27/24 07:09 BUN 32 mg/dL (4-19) H 08/27/24 07:09 Creatinine 1.42 mg/dL (0.70-1.20) H 08/27/24 07:09 Est GFR (MDRD) Non-Af 58 (>60) L 08/27/24 07:09 BUN/Creatinine Ratio 22.5 RATIO (10-20) H 08/27/24 07:09 Glucose 170 mg/dL (70-99) H 08/27/24 07:09 Vancomycin Trough 17.0 ug/mL (5.0-15.0) H 08/28/24 00:40 Random Vancomycin 17.7 ug/mL (0.0-15.0) H 08/24/24 11:30 Microbiology Microbiology: Microbiology 08/24/24 Unknown Bone - 5th Toe Gram Stain - Final 08/24/24 Unknown Bone - 5th Toe Wound Culture - Preliminary Meth. resistant Staph. aureus Alpha hemolytic organism 08/24/24 Unknown Bone - 5th Toe Anaerobic Culture - Preliminary Checking for anaerobes, further studies to follow. 08/17/24 09:20 Wound - Right Foot Gram Stain - Final 08/17/24 09:20 Wound - Right Foot Wound Culture - Final Pseudomonas aeruginosa Klebsiella oxytoca Staphylococcus sciuri Meth. resistant Staph. aureus Actinomyces bovis 08/17/24 09:20 Wound - Right Foot Anaerobic Culture - Final Actinotignum schaalii 08/17/24 13:35 Blood Culture (Wb) - Anticubital Left Blood Culture - Final No growth in 5 days. 08/17/24 13:43 Blood Culture (Wb) - Left Hand Blood Culture - Final No growth in 5 days. 08/16/24 12:53 Blood Culture (Wb) - Right Wrist Bacteria Detection (PCR) - Final Strep not Strep pneumo 08/16/24 12:53 Blood Culture (Wb) - Right Wrist Blood Culture - Final Meth. resistant Staph. aureus Streptococcus mitis/ oralis 08/16/24 12:53 Blood Culture (Wb) - Right Wrist Blood Culture - Final Staphylococcus aureus 08/16/24 14:50 Urine, Clean Catch Urine Culture - Final Culture exhibits no growth. 08/16/24 12:56 Mucosa - Nose SARS-CoV-2, Influenza & RSV (PCR) - Final Goal Trough Goal Trough: 15-20 mcg/mL Pharmacy Plan for Drug Dosing Pharmacy Plan for Drug Dosing: Pharmacy Service will continue to monitor and adjust dosing as required. TROUGH 17.0 @ 10.5 HOURS. NO CHANGES, FOLLOW UP TROUGH IN 4 DAYS Follow-Up Labs Follow-Up Labs: Trough: Vancomycin Date/Time Labs Ordered Labs to be done on [date and time ordered]: 09/01 @ 0030
[2024-08-28] MEDS: Meropenem 1 GM in 0.9% Normal Saline (100mL MB+) 100 ML IV ×2 (06:21→14:40)
[2024-08-28 06:53] LABS: Bedside Glucose 181 mg/dL (74-106)
[2024-08-28 08:18] VITALS: BP 141/75; PULSE 81; RESP 18; TEMP 36.5; O2SAT 99
[2024-08-28] MEDS: Juven (unflavored) Packet 1 PACKET PO ×2 (08:25→17:01)
[2024-08-28] MEDS: Insulin Lispro 100 UNIT/ML INSULN.PEN SC ×2 (08:28→12:36)
[2024-08-28] MEDS: Insulin Lispro 100 UNIT/ML INSULN.PEN 8 UNIT SC ×3 (08:32→16:54)
[2024-08-28] MEDS: Ramipril 10 MG Capsule PO (08:33)
[2024-08-28] MEDS: NIFEdipine 90 MG Tablet PO (08:33)
[2024-08-28] MEDS: DAKIN'S SOL HALF STRENGTH (=0.25%) TOPICAL (08:55)
--- NOTE | 2024-08-28 10:18 | CASEMGMT ---
Addendum entered by Yen Mendez 08/28/24 16:10: Message to [facility] sent via [facility] to make aware that dc instructions will be faxed when available this evening. Addendum entered by Yen Mendez 08/28/24 16:07: Green sheet on chart for dc instructions and/or summary to be faxed to both [facility] and [facility] upon dc. Addendum entered by Yen Mendez 08/28/24 15:45: Per ID, ok to miss evening doses of IV meds with HH to start in the morning. Addendum entered by Yen Mendez 08/28/24 15:43: Hospitalist states pod will write wound care orders for pt this date. Addendum entered by Yen Mendez 08/28/24 13:15: Completed PA form for IV meds and returned to [facility] via fax at this time. Addendum entered by Yen Mendez 08/28/24 13:11: Per [facility] educator, pt feels most comfortable with waiting for nurse to come to the home to start IV atb. Message to ID to verify if pt can miss evening doses of meds and dc today after 2pm meropenem. Original Note: [facility] educator on floor to meet with patient at this time.
[2024-08-28 11:56] LABS: Bedside Glucose 189 mg/dL (74-106)
[2024-08-28 14:27] VITALS: BP 136/68; PULSE 91; RESP 16; TEMP 36.4; O2SAT 100
[2024-08-28 16:40] LABS: Bedside Glucose 133 mg/dL (74-106)
--- NOTE | 2024-08-28 18:29 | DS.PCM_ITS ---
Providers Date of Admission: 08/16/24 Date of Discharge: 08/28/24 Primary Care Physician: Dr. Gerald Tee, Consultations 08/17/24 01:14 Consult: Onc/Wound/storage receipt poster Routine Comment: Reason for Consult:: Diabetic foot ulcer 08/17/24 10:26 Consult: Podiatry Routine Consulting Provider: Allen Joyce Reason for Consult: diabetic foot ulcer EMERGENT Consult: No MD Notified: Yes Date Notified: 08/17/24 Time Notified: 10:26 Method of Notification: Verbal 08/19/24 07:35 Consult: Infectious Disease Routine Consulting Provider: Rob Lyons Reason for Consult: foot osteomyelitis EMERGENT Consult: No Notified: Yes Date Notified: 08/20/24 Time Notified: 07:44 Method of Notification: Text Reason For Visit: POSSIBLE OSTEO Diagnosis Discharge Diagnosis (1) Diabetic foot infection: Status: Acute Code(s): E11.628 - Type 2 diabetes mellitus with other skin complications; L08.9 - Local infection of the skin and subcutaneous tissue, unspecified Plan 1. Right foot infected with strep and MRSA from neuropathic wound secondary to type 2 diabetes-status post cuboid or tarsal osteotomy with incision and drainage of the bone cortex of the right fifth metatarsal and application of mesh graft-patient will continue to be nonweightbearing on the right foot, he is using a walker presently and sometimes crutches. Patient has a PICC line and will require 6 weeks of vancomycin and meropenem with a stop date of 10/05/2024. #2 bacteremia secondary to strep and methicillin resistant Staph aureus-continue present antibiotics per infectious diseases #3 type 2 diabetes-complicates care, management, recovery, and prognosis, sliding scale insulin will be administered as needed #4 diabetic neuropathy-complicates care, management, recovery, and prognosis #5 essential hypertension-patient will remain on his present medications, blood pressure will be monitored Total clinical time spent by myself addressing patient's medical issues, reviewing all of his data, and collaborating with patient's care team: 35 minutes Medications at Discharge Home Medications ramipril 10 mg capsule 10 mg PO DAILY BLOOD PRESSURE 10/01/14 atorvastatin 40 mg tablet 40 mg PO DAILY CHOLESTEROL 03/15/24 cyclobenzaprine 10 mg tablet 10 mg PO TID PRN MUSCLE SPASMS 03/15/24 insulin aspart U-100 100 unit/mL (3 mL) subcutaneous pen 8 unit subcut TIDCM DIABETES 03/15/24 nifedipine 90 mg tablet,extended release 24 hr 90 mg PO DAILY HEART/BLOOD PRESSURE 03/15/24 tadalafil 20 mg tablet 20 mg PO DAILY PRN ERECTILE DYSFUNCTION 03/15/24 ibuprofen-diphenhydramine citrate 200 mg-38 mg tablet (Advil PM) 2 cap PO QHS sleep aide 08/17/24 insulin glargine-yfgn 100 unit/mL (3 mL) subcutaneous pen 20 unit (0.2 mL) subcut QHS #0 mL 08/27/24 vancomycin 750 mg intravenous solution 750 mg IV Q12H 39 days #78 ea 08/27/24 Hospital Course Operations - (Rotational and advancement flap right foot, cuboid or tarsal osteotomy, incision and drainage of bone cortex right fifth metatarsal, application of Integra meshed graft) Procedures 2-D Echocardiogram, PICC line placement and Transesophageal Echo Summary of Care Provided Minutes Spent on Discharge: 32 Hospital Course: This 59-year-old white male was seen in the emergency room at [facility] with chief complaint of diaphoresis and weakness. This has been going on for about a week. Patient has a history of a chronic wound to his right foot, he sees an outpatient enrollment management coordinator in [place]. Workup in the emergency room showed the patient have a normal white blood cell count, creatinine was elevated at 1.93 and BUN was 29. Chest x-ray showed no acute process, x-rays of the patient's right foot showed soft tissue swelling with soft tissue defect status post metatarsal amputation, no definite osteomyelitis or gas formation was noted, blood cultures and urine cultures were obtained, patient received IV vancomycin and Zosyn and the patient was admitted to [place] [id number]. MRI of the foot was obtained which showed acute osteomyelitis of the base of the fifth metatarsal with adjacent abscess/ulcer. Podiatry saw the patient in consultation in the hospital and he was taken to surgery by podiatry. Patient was found to have bacteremia, he underwent a transthoracic echo as well as a transesophageal echo-these echoes were negative for vegetation. Patient was seen by infectious diseases, a PICC line was placed for long-term antibiotic administration. Patient was instructed how to use the PICC line and how to get his on antibiotics, home nursing was set up for the patient. On 08/28/2024, patient was seen and examined:alert, oriented x3, no apparent distress and healthy appearing General Appearance: cooperative, well kempt and well developed Orientation / Consciousness: awake, oriented to person, oriented to place and oriented to time HEENT normocephalic, head/scalp atraumatic and moist oral mucous membranes Eyes PERRL, EOMs intact bilaterally and conjunctivae normal Neck supple, no JVD, thyroid normal and no carotid bruits General: trachea midline Resp normal respiratory effort, no retractions, no use of accessory muscles and clear to auscultation bilaterally Auscultation: Negative for rales, rhonchi or wheezes Cardio regular rate, regular rhythm, S1 normal heart sound, S2 normal heart sound, no murmurs, no rub and no gallops GI normal to inspection, nondistended, normoactive bowel sounds, soft to palpation, non-tender and non-distended Extremity Extremity Narrative: Right lower extremity is wrapped with surgical dressing and an Eduin wrap, this was not removed to examine the patient's right foot wound Skin Skin Narrative: Right foot was wrapped with surgical dressing and an Eduin wrap, this was not removed for examination of the area Neuro oriented x3, CN's II-XII intact bilaterally and no focal motor deficits Sensorium / Orientation: awake and alert Speech: speech normal Psych affect normal Patient was discharged home in stable condition on 08/28/2024 Weight / BMI Weight Weight: 127.7 kg Body Mass Index (BMI) 36.1 ABG / Lab / Microbiology Data 08/27/24 07:09 08/27/24 07:09 Laboratory: Laboratory Results - last 24 hr 08/27/24 21:56: POC Glucose 181 H 08/28/24 00:40: Vancomycin Trough 17.0 H 08/28/24 06:29: POC Glucose 181 H 08/28/24 11:32: POC Glucose 189 H 08/28/24 16:18: POC Glucose 133 H Microbiology: Microbiology 08/24/24 Unknown Bone - 5th Toe Gram Stain - Final 08/24/24 Unknown Bone - 5th Toe Wound Culture - Final Meth. resistant Staph. aureus Streptococcus mitis/ oralis 08/24/24 Unknown Bone - 5th Toe Anaerobic Culture - Final No anaerobic bacteria isolated. 08/17/24 09:20 Wound - Right Foot Gram Stain - Final 08/17/24 09:20 Wound - Right Foot Wound Culture - Final Pseudomonas aeruginosa Klebsiella oxytoca Staphylococcus sciuri Meth. resistant Staph. aureus Actinomyces bovis 08/17/24 09:20 Wound - Right Foot Anaerobic Culture - Final Actinotignum schaalii 08/17/24 13:35 Blood Culture (Wb) - Anticubital Left Blood Culture - Final No growth in 5 days. 08/17/24 13:43 Blood Culture (Wb) - Left Hand Blood Culture - Final No growth in 5 days. 08/16/24 12:53 Blood Culture (Wb) - Right Wrist Bacteria Detection (PCR) - Final Strep not Strep pneumo 08/16/24 12:53 Blood Culture (Wb) - Right Wrist Blood Culture - Final Meth. resistant Staph. aureus Streptococcus mitis/ oralis 08/16/24 12:53 Blood Culture (Wb) - Right Wrist Blood Culture - Final Staphylococcus aureus 08/16/24 14:50 Urine, Clean Catch Urine Culture - Final Culture exhibits no growth. 08/16/24 12:56 Mucosa - Nose SARS-CoV-2, Influenza & RSV (PCR) - Final D/C Instructions Discharge Diet: 1800 Calorie Control Diet Weight Bearing Status: No weight bearing (Right lower extremity) Call your doctor if your incision/area has: Increased Pain/ Swelling, Increased Redness and Foul Smelling Discharge Call your doctor if you observe: Fever of 101 or Higher Cleanse incision/area with: - (Perform dressing changes as instructed by podiatric surgery) DC O2, CPAP, BIPAP Needs Home O2 Discharge instructions: No Meaningful Use Info Meaningful Use Meaningful Use Diagnoses (Choose all that apply): None applicable Ischemic Stroke Statin Dosing Therapy Reference: STATIN DOSE THERAPY REFERENCE: * Patients > 75 years receive moderate or high dose statin therapy. * Patients 75 years or YOUNGER should receive HIGH intensity statin dose unless contraindicated. You will be required to document reason for non-treatment if statin daily dose does not meet guidelines. HIGH DOSE STATIN THERAPY DAILY Atorvastatin > than or = to 40 mg Rosuvastatin > than or = to 20 mg Amlodipine + Atorvastatin > than or = to 2.5/40 mg Ezetimibe + Simvastatin 10/80 mg Simvastatin 80mg Discharge Plan Admission Admit Date/Time: 08/16/24 15:45 Primary Reason for Your Visit: Osteomyelitis of the fifth right metatarsal Attending Provider: Daniel Khoury Primary Care Provider: Gerald Tee Consulting Providers: Js Ruelas; Allen Joyce; Oliver Samaniego; Rob Lyons Instructions Additional Instructions / Restrictions: I would discourage the routine use of ibuprofen or naproxen for pain due to your mild kidney impairment Discharge Orders/Prescriptions Prescriptions: New vancomycin 750 mg recon soln 750 mg IV Q12H 39 Days Qty: 78 0RF Rx Instructions: stop date 10/05/24. Dx: osteomyelitis. Weekly bmp, cbc, LFT, vanc trough and ESR. Fax to [phone]. Routine picc care per protocol. insulin glargine-yfgn 100 unit/mL (3 mL) Insulin Pen 20 unit subcut QHS Qty: 0 0RF Continued ramipril 10 MG capsule 10 mg PO DAILY atorvastatin 40 mg tablet 40 mg PO DAILY nifedipine 90 mg tablet extended release 24hr 90 mg PO DAILY insulin aspart U-100 100 unit/mL (3 mL) insulin pen 8 unit subcut TIDCM Rx Instructions: INJECT 8 UNITS PLUS SLIDING SCALE BEFORE MEALS. TOTAL OF UP TO 14 UNITS THREE TIMES A DAY WITH MEALS. cyclobenzaprine 10 mg tablet 10 mg PO TID PRN (Reason: MUSCLE SPASMS ) tadalafil 20 mg tablet 20 mg PO DAILY PRN (Reason: ERECTILE DYSFUNCTION ) Advil PM 200-38 mg tablet 2 cap PO QHS Discontinued insulin glargine [Lantus Solostar U-100 Insulin] 100 unit/mL (3 mL) insulin pen 35 unit subcut QHS Rx Instructions: Start on 03/20/2024 Referrals / Follow Up: Allen Joyce MD [Med Staff - Active Staff] - See Referral Note (Within 10 days, call for follow-up appointment) Gerald Tee DO [Primary Care Provider] - Rob Lyons MD [Med Staff - Active Staff] - See Referral Note (In 2 weeks, call for an appointment) Disposition Disposition (needs filled in before D/C Order can be placed): Home Health Service Charges/Coding Visit Charges Inpatient E&M: 55610 Disch Hosp >30min
[2024-08-28 19:53] VITALS: BP 139/63; PULSE 99; RESP 16; TEMP 36.5; O2SAT 99
--- NOTE | 2024-08-28 20:05 | PCM.PROGNOTE ---
Subjective Subjective Patient seen now approximately 4 days status post midfoot bone resection with incision and drainage right foot and flap closure of the right foot also with tarsal osteotomy to help compress or decompress his lateral side of his footOverall patient doing well has no complaints I saw him with his friend they are ready to get discharged today. He otherwise is overall healing well his dressing was changed today. He has no complaints of pain denies nausea vomiting chills or fever Objective Data Objective Data Vital Signs: Vital Signs Temp Pulse Resp BP Pulse Ox O2 Del Method 97.7 F L 99 16 139/63 H 99 Room Air 08/28/24 19:53 08/28/24 19:53 08/28/24 19:53 08/28/24 19:53 08/28/24 19:53 08/28/24 19:53 Oxygen Delivery Method Room Air Weight: 127.7 kg Body Mass Index (BMI) 36.1 Intake & Output: Intake and Output for Last 24 Hours 08/26/24 08/27/24 08/28/24 23:59 23:59 23:59 Intake Total 2390 / 2390 3260 / 3260 1290 / 1290 Output Total 3675 / 3675 1675 / 2075 1050 / 1050 Balance -1285 / -1285 1585 / 1185 240 / 240 Lab / Micro Data 08/27/24 07:09 08/27/24 07:09 Labs: Laboratory Results - last 24 hr 08/27/24 21:56: POC Glucose 181 H 08/28/24 00:40: Vancomycin Trough 17.0 H 08/28/24 06:29: POC Glucose 181 H 08/28/24 11:32: POC Glucose 189 H 08/28/24 16:18: POC Glucose 133 H Micro: Microbiology 08/24/24 Unknown Bone - 5th Toe Gram Stain - Final 08/24/24 Unknown Bone - 5th Toe Wound Culture - Final Meth. resistant Staph. aureus Streptococcus mitis/ oralis 08/24/24 Unknown Bone - 5th Toe Anaerobic Culture - Final No anaerobic bacteria isolated. 08/17/24 09:20 Wound - Right Foot Gram Stain - Final 08/17/24 09:20 Wound - Right Foot Wound Culture - Final Pseudomonas aeruginosa Klebsiella oxytoca Staphylococcus sciuri Meth. resistant Staph. aureus Actinomyces bovis 08/17/24 09:20 Wound - Right Foot Anaerobic Culture - Final Actinotignum schaalii 08/17/24 13:35 Blood Culture (Wb) - Anticubital Left Blood Culture - Final No growth in 5 days. 08/17/24 13:43 Blood Culture (Wb) - Left Hand Blood Culture - Final No growth in 5 days. 08/16/24 12:53 Blood Culture (Wb) - Right Wrist Bacteria Detection (PCR) - Final Strep not Strep pneumo 08/16/24 12:53 Blood Culture (Wb) - Right Wrist Blood Culture - Final Meth. resistant Staph. aureus Streptococcus mitis/ oralis 08/16/24 12:53 Blood Culture (Wb) - Right Wrist Blood Culture - Final Staphylococcus aureus 08/16/24 14:50 Urine, Clean Catch Urine Culture - Final Culture exhibits no growth. 08/16/24 12:56 Mucosa - Nose SARS-CoV-2, Influenza & RSV (PCR) - Final Radiography Diagnostic Testing: Left foot looks good postoperatively. Physical Exam Narrative Overall patient doing very well he is comfortable right foot looks good he is having no complaints the area looks clean dry and intact it is stable I did change the dressing today. Const alert, oriented x3 and no apparent distress Psych Judgement: judgement good Assessment & Plan Assessment/Plan (1) Bacteremia: (2) Diabetic foot infection: (3) Cavus deformity of right foot: (4) Type 2 diabetes mellitus with foot ulcer: (5) Ulcer of left foot with fat layer exposed: (6) Ulcer of right foot with fat layer exposed: (7) Osteomyelitis of ankle or foot, right, acute: PLAN: Postoperatively since incision and drainage bone cortex flap closure and graft application he is doing great foot looks good stable dressing change it was true clean dry and intact I did wrap him back up the big issue is he needs to stay off of it I told him even just having it changed in the morning there is still drainage because he is getting up without using walker or crutches. I stressed the issue that this needs to be nonweightbearing or toe-touch at best or he will break open again and have a nonhealing wound. Therefore it could cause below-knee amputation. PLAN: Plan Dressing to remain in place IV antibiotics patient at home follow-up in 1 week.
[2024-08-28 20:34] VITALS: BP 146/57; PULSE 112; RESP 18; TEMP 36.4; O2SAT 100
== END 2024-08-28 20:35 | disposition home health service (06) | DRG 314 ==
LOC: ED 13:16 → MS3 16:44
PROVIDERS: Hospitalist; Internal Medicine; Internal Medicine Infectious Disease; Podiatrist Foot & Ankle Surgery; Admitting Provider Family Medicine; Emergency Provider Emergency Medicine; PCP Student in an Organized Health Care Education/Training Program; Visit Provider Internal Medicine
PROC: 0HRMXK4 Replacement of Right Foot Skin with Nonautologous Tissue Substitute, Partial Thickness, External Approach (ICD-10-PCS; principal; 2024-08-24 13:50)
DX: E11.69 Type 2 diabetes mellitus with other specified complication (principal); M86.171 Other acute osteomyelitis, right ankle and foot; R78.81 Bacteremia; B96.5 Pseudomonas (aeruginosa) (mallei) (pseudomallei) as the cause of diseases classified elsewhere; B96.1 Klebsiella pneumoniae [K. pneumoniae] as the cause of diseases classified elsewhere; N18.30 Chronic kidney disease, stage 3 unspecified; E11.51 Type 2 diabetes mellitus with diabetic peripheral angiopathy without gangrene; I12.9 Hypertensive chronic kidney disease with stage 1 through stage 4 chronic kidney disease, or unspecified chronic kidney disease; L97.514 Non-pressure chronic ulcer of other part of right foot with necrosis of bone; E11.22 Type 2 diabetes mellitus with diabetic chronic kidney disease; L97.822 Non-pressure chronic ulcer of other part of left lower leg with fat layer exposed; E11.621 Type 2 diabetes mellitus with foot ulcer; E11.42 Type 2 diabetes mellitus with diabetic polyneuropathy; Z79.4 Long term (current) use of insulin; E78.5 Hyperlipidemia, unspecified; M79.10 Myalgia, unspecified site; E11.65 Type 2 diabetes mellitus with hyperglycemia; M21.6X1 Other acquired deformities of right foot; M54.2 Cervicalgia; M54.9 Dorsalgia, unspecified; B95.5 Unspecified streptococcus as the cause of diseases classified elsewhere; B95.62 Methicillin resistant Staphylococcus aureus infection as the cause of diseases classified elsewhere; Z79.85 Long-term (current) use of injectable non-insulin antidiabetic drugs; Z79.02 Long term (current) use of antithrombotics/antiplatelets; Z79.899 Other long term (current) drug therapy; G89.29 Other chronic pain
CPT/HCPCS: 36415; 36569; 71045; 73620; 73630; 73720; 76000; 80048; 80053; 80202; 81001; 82962; 83036; 83605; 84484; 85025; 85610; 85652; 85730; 86140; 87015; 87040; 87070; 87075; 87077; 87086; 87102; 87116; 87149; 87176; 87184; 87186; 87205; 87206; 87631; 88305; 88311; 93005; 93306; 93312; 93320; 93325; 97110; 97116; 97162; 97530; 97802; 97803; 99285; A9575; J2185; J2997; Q9957; A4216; C8929; J2405

== ENCOUNTER 2024-08-30 17:07 | Emergency (ER) | payer MEDICAID, SELFPAY ==
[2024-08-30 17:08] VITALS: BP 131/84; PULSE 114; RESP 18; TEMP 36.8; O2SAT 98; BMI 36.1
--- NOTE | 2024-08-30 17:19 | EDS_ITS ---
HPI History of Present Illness Chief Complaint: Other, Pain/Inj Narrative Narrative: 59-year-old male was recently released from the hospital, being treated for osteomyelitis and bacteremia, presents with questionable PICC line occlusion. He states that this afternoon he was trying to infuse his antibiotic, and it took longer than normal. He was released from the hospital 2 days ago. Yesterday, he had an RN that only comes out to the house twice a week that helped him with the infusion of his antibiotics. He states he is post to have infusion of this unknown antibiotic twice a day. He states this afternoon when he started his infusion, it should only take an hour and a half. However, when it was finally finished, he noticed that it was 4 hours later. He states he was able to flush the PICC as he was instructed to do so after infusion, but is not sure if he has a clot in it because it took longer. Additionally, his friend asked if his wound could be checked because he is supposed to be nonweightbearing, but patient states that he might touchdown weight-bear on it. He reports that he may have had a small amount of bleeding as well. [facility] Medical History Osteomyelitis of ankle or foot, right, acute Bacteremia MRSA (methicillin resistant staph aureus) culture positive Diabetic foot infection Anxiety Cavus deformity of right foot Chronic neck and back pain Limb weakness unexplained bruising Knee pain Diarrhea Hay fever Diabetes Arthritis Hypertension Incisional hernia, with obstruction, without gangrene Obesity Hypertension History of seizures as a child Type II diabetes mellitus Home Medications ?Medication ?Instructions ?Recorded ?Last Taken ?Type ramipril 10 mg capsule 10 mg PO DAILY BLOOD PRESSUR E 10/01/14 05/06/17 07:00 History atorvastatin 40 mg tablet 40 mg PO DAILY CHOLESTEROL 1 05/15/23 Unknown History cyclobenzaprine 10 mg tablet 10 mg PO TID PRN MUSCLE S PASMS 03/15/24 Unknown History insulin aspart U-100 100 unit/mL 8 unit subcut TIDCM D IABETES 03/15/24 Unknown History (3 mL) subcutaneous pen nifedipine 90 mg tablet,extended 90 mg PO DAILY HEART/ BLOOD PRESSURE 03/15/24 Unknown History release 24 hr tadalafil 20 mg tablet 20 mg PO DAILY PRN ERECTILE 03/15/24 Unknown History DYSFUNCTION ibuprofen-diphenhydramine citrate 2 cap PO QHS sleep a valencia 08/17/24 Unknown History 200 mg-38 mg tablet (Advil PM) insulin glargine-yfgn 100 unit/mL 20 unit (0.2 mL) sub cut QHS #0 mL 08/27/24 Unknown Rx (3 mL) subcutaneous pen vancomycin 750 mg intravenous 750 mg IV Q12H 39 days # 78 ea 08/27/24 Unknown Rx solution Allergy/AdvReac Type Severity Reaction Status Date / Time codeine Allergy Mild Hives Verified 08/30/24 17:09 dulaglutide (From Trulicity) Allergy hives Verified 08/30/24 17:09 oxycodone (From Percocet) AdvReac Nausea Verified 08/30/24 17:09 Family History Other Diabetes Heart disease Hypertension Surgical History H/O ventral hernia repair S/P ORIF (open reduction internal fixation) fracture Social History housing: apartment Smoking Status: Never smoker alcohol intake: current alcohol intake frequency: holidays/special occasions only ROS ROS ED ROS Narrative Review of systems positive for questionable malfunctioning of right PICC line. No fevers or chills. Presents for wound check of right lower extremity. EXAM Physical Exam Narrative Exam Narrative: Afebrile. Vital signs noted. Nontoxic-appearing. Cardiovascular examination reveals mild tachycardia. Lungs clear to auscultation bilaterally. Abdomen is soft and nontender with normal active bowel sounds, no guarding or rebound. There is a PICC line in his right upper extremity. His right lower extremity is also wrapped with Eduin bandages. After unwrapping, his surgical wound appears intact with dried blood, no active bleeding. He may have a small amount of serous drainage around shivam. No active bleeding. Const Vital Signs: 08/30/24 17:08 08/30/24 17:39 08/30/24 18:27 Temperature 98.2 F 98.2 F Temperature Source Oral Pulse Rate 114 H 114 H Respiratory Rate 18 18 Respiratory Effort Normal Non-Labored Respiratory Pattern Normal Blood Pressure 131/84 H 131/84 H Blood Pressure Mean 99 99 Pulse Ox 98 98 Oxygen Delivery Method Room Air MDM MDM MDM Narrative Medical decision making narrative: I reviewed the patient's prior records, and he has bacteremia and diabetic foot infection with osteomyelitis of the ankle. RN will flush and draw back on the PICC line ports to see if it is operational. I reviewed the patient's prior inpatient notes. He was seen by podiatry, Dr. Joyce who performed surgery, and the patient is approximately postoperative day 6 from his surgery. I will check his wound to see if there is any evidence of dehiscence. Upon inspection, he has a small amount of serous drainage around the shivam, but no active bleeding. His wound was rewrapped. According to the RN, his PICC line will flush and the port does draw back, however the extension piece will not flush. Will attempt to replace this if it is available. Regardless I feel he can be discharged to follow-up with his lean manager a continue his IV antibiotics. He may be having a problem with position of the PICC line during infusion. Return instructions were reviewed. Disposition is discharged home in stable condition. Of note, RN returned and stated that while initially the 1 port did flush, there was a On the extension piece which was removed and when she went to flush the port again, it will not draw back, nor will it flush at all. Hence, we cannot administer any alteplase or clot Buster into that particular port. Patient will be discharged and instructed to use the operable port, and attempt to contact his primary care provider regarding a different PICC placement. I feel this can be done as an outpatient. Additionally, I discussed patient with Dr. Antonio Novak who has a follow-up appointment with the patient. He requested that Adaptic dressing be applied and patient okay for discharge. Disposition is discharged home in stable condition. History & Record Review Discussion w/independent historian: Patient and Friend Management Discussion w/another healthcare provider: Compressed Yeast Supervisor (Dr. Joyce) Discharge Plan Triage Chief Complaint: Other, Pain/Inj ED Provider: Eusebio Ruby Dx/Rx/DC Orders Clinical Impression: Encounter for post surgical wound check, Peripherally inserted central catheter (PICC) in place Instructions: PICC, ED Post Op Wound Check, Bleeding, ED PICC Line Care Prescriptions: No Action ramipril 10 MG capsule 10 mg PO DAILY atorvastatin 40 mg tablet 40 mg PO DAILY nifedipine 90 mg tablet extended release 24hr 90 mg PO DAILY insulin aspart U-100 100 unit/mL (3 mL) insulin pen 8 unit subcut TIDCM Rx Instructions: INJECT 8 UNITS PLUS SLIDING SCALE BEFORE MEALS. TOTAL OF UP TO 14 UNITS THREE TIMES A DAY WITH MEALS. cyclobenzaprine 10 mg tablet 10 mg PO TID PRN (Reason: MUSCLE SPASMS ) tadalafil 20 mg tablet 20 mg PO DAILY PRN (Reason: ERECTILE DYSFUNCTION ) Advil PM 200-38 mg tablet 2 cap PO QHS vancomycin 750 mg recon soln 750 mg IV Q12H 39 Days Qty: 78 0RF Rx Instructions: stop date 10/05/24. Dx: osteomyelitis. Weekly bmp, cbc, LFT, vanc trough and ESR. Fax to [phone]. Routine picc care per protocol. insulin glargine-yfgn 100 unit/mL (3 mL) Insulin Pen 20 unit subcut QHS Qty: 0 0RF Primary Care Provider: Gerald Tee Referrals: Allen Joyce MD [Med Staff - Active Staff] - 3-5 Days Gerald Tee DO [Primary Care Provider] - Activity Restrictions/Additional Instructions: Follow-up with Dr. Joyce as scheduled. Return with PICC line malfunction, new or worsening symptoms. Your surgical wound appears to be healing. Have your wound rechecked by your lean manager as an outpatient. Continue your antibiotics as previously directed. Print Language: Luxembourgish Disposition Disposition: Home, Self Care Discharge Date/Time: 08/30/24 18:28
--- NOTE | 2024-08-30 18:25 | ED.RN ---
this nurse attempted to flush picc line. this nurse got resistance on one side of picc line. the other picc line flushed and gave blood return. dr. delaney aware. this nurse attempted to chnage out anti reflux cap and attempted to flush and still met resistance. this nurse changed sterlie dressing.
[2024-08-30 18:27] VITALS: BP 131/84; PULSE 114; RESP 18; TEMP 36.8; O2SAT 98
== END 2024-08-30 18:28 | disposition home or self-care (01) ==
PROVIDERS: Emergency Provider Emergency Medicine; PCP Student in an Organized Health Care Education/Training Program; Referring Provider Emergency Medicine; Visit Provider Emergency Medicine
DX: Z48.01 Encounter for change or removal of surgical wound dressing (principal); M86.171 Other acute osteomyelitis, right ankle and foot; E11.69 Type 2 diabetes mellitus with other specified complication; Z79.4 Long term (current) use of insulin; I10 Essential (primary) hypertension; E66.9 Obesity, unspecified; Z68.36 Body mass index [BMI] 36.0-36.9, adult; Z79.899 Other long term (current) drug therapy
CPT/HCPCS: 99282; A4216

== ENCOUNTER 2024-08-31 11:32 | Observation (INO) | payer MEDICAID, SELFPAY ==
[2024-08-31 11:33] VITALS: BP 133/71; PULSE 106; RESP 18; TEMP 36.7; O2SAT 98
[2024-08-31 11:41] VITALS: BP 133/71; PULSE 106; RESP 18; TEMP 36.7; O2SAT 98; BMI 35.2
--- NOTE | 2024-08-31 11:45 | EDS_ITS ---
HPI <Dr. Ney Bowles MD - Last Filed: 09/01/24 14:41> History of Present Illness Chief Complaint: Wound Check Detail of Chief Complaint: Concern PICC line ports are occluded Informant: patient and spouse/S.O. Onset/Context/Timing Onset: Today and Yesterday Context: Sudden Onset Timing: Continuous Quality: Difficulty infusing antibiotics Location: PICC line right arm Current Severity: Reports 1 is occluded the other 1 the infusion is taking 4 to 6 hours. Marisol Maximum Severity: See above Worsened by: Uncertain Relieved by: Was seen yesterday and had activity/Cathflo infused and was discharged to Associated Symptoms Associated Symptoms: Problems with PICC line Narrative Narrative: Patient is a 59-year-old male. He was admitted August 16 for osteomyelitis and found to have bacteremia. He was seen by hospitalist and as well as infectious ease and podiatry. Patient presents because of problems with infusion of anti biotics. He states he has missed 2 doses because of problems with infusion. He was seen yesterday by Dr. Ruby. Dr. Ruby's note was noted. He is not having problems with both ports. Patient has no other symptoms or complaints. Prior similar symptoms: Yes Recent Illness/Hospitalization: Yes [facility] <Dr. Ney Bowles MD - Last Filed: 09/01/24 14:41> [facility] Medical History (Updated 09/01/24 @ 09:[address] Daniel Khoury, DO) Alcohol abuse Pancreatitis Seizures Osteomyelitis of ankle or foot, right, acute MRSA (methicillin resistant staph aureus) culture positive Bacteremia Diabetic foot infection Anxiety Cavus deformity of right foot Chronic neck and back pain Limb weakness unexplained bruising Knee pain Diarrhea Hay fever Diabetes Arthritis Hypertension Incisional hernia, with obstruction, without gangrene Obesity Hypertension History of seizures as a child Type II diabetes mellitus Home Medications ?Medication ?Instructions ?Recorded ?Last Taken ?Type ramipril 10 mg capsule 10 mg PO DAILY BLOOD PRESSUR E 10/01/14 05/06/17 07:00 History atorvastatin 40 mg tablet 40 mg PO DAILY CHOLESTEROL 1 05/15/23 Unknown History cyclobenzaprine 10 mg tablet 10 mg PO TID PRN MUSCLE S PASMS 03/15/24 Unknown History insulin aspart U-100 100 unit/mL 8 unit subcut TIDCM D IABETES 03/15/24 Unknown History (3 mL) subcutaneous pen nifedipine 90 mg tablet,extended 90 mg PO DAILY HEART/ BLOOD PRESSURE 03/15/24 Unknown History release 24 hr tadalafil 20 mg tablet 20 mg PO DAILY PRN ERECTILE 03/15/24 Unknown History DYSFUNCTION ibuprofen-diphenhydramine citrate 2 cap PO QHS sleep a valencia 08/17/24 Unknown History 200 mg-38 mg tablet (Advil PM) insulin glargine-yfgn 100 unit/mL 20 unit (0.2 mL) sub cut QHS #0 mL 08/27/24 Unknown Rx (3 mL) subcutaneous pen vancomycin 750 mg intravenous 750 mg IV Q12H 39 days # 78 ea 08/27/24 Unknown Rx solution Allergy/AdvReac Type Severity Reaction Status Date / Time codeine Allergy Mild Hives Verified 08/31/24 11:35 dulaglutide (From Trulicity) Allergy hives Verified 08/31/24 11:35 oxycodone (From Percocet) AdvReac Nausea Verified 08/31/24 11:35 Family History Other Diabetes Heart disease Hypertension Surgical History History of cholecystectomy H/O ventral hernia repair S/P ORIF (open reduction internal fixation) fracture Social History housing: apartment Smoking Status: Never smoker alcohol intake: current alcohol intake frequency: holidays/special occasions only ROS <Dr. Ney Bowles MD - Last Filed: 09/01/24 14:41> ROS ED Constitutional Constitutional ED: Denies chills, fever(s), subjective, sweats or weight loss Eyes Eyes: Denies blurry vision or change in vision ENT ENT ED: Denies rhinorrhea or sore throat Cardiovascular Cardiovascular: Denies chest pain or palpitations Respiratory/Chest Respiratory/Chest: Denies dyspnea or dyspnea on exertion Integumentary Reports other Details: Under the care of multiple doctors for osteomyelitis/wound infection right foot. Hematologic/Lymphatic Hematologic/Lymphatic: Reports systems reviewed and no addt'l complaints, except as documented EXAM <Dr. Ney Bowles MD - Last Filed: 09/01/24 14:41> Physical Exam Const Vital Signs: 08/31/24 15:18 08/31/24 18:36 Temperature 98.5 F 99 F Temperature Source Oral Pulse Rate 102 H 96 Respiratory Rate 18 18 Blood Pressure 163/85 H 147/72 H Blood Pressure Mean 111 97 Pulse Ox 97 96 Oxygen Delivery Method Room Air Positive well nourished and well developed General Appearance ED: well developed and NAD HEENT Reports moist mucous membranes Negative for trauma or tenderness Eyes PERRL and EOMs intact bilaterally Resp normal respiratory effort Cardio regular rate and regular rhythm Extremity Extremity Narrative: PICC line right arm. There is no evidence infection insertion site. There is no neurovasc Otomize. Neuro oriented x3 and CN's II-XII intact bilaterally Sensorium / Orientation: alert Psych mental status grossly normal Skin Skin Narrative: No evidence of infection regarding PICC line site. <Eusebio Ruby MD - Last Filed: 08/31/24 18:32> Physical Exam Const Vital Signs: 08/31/24 15:18 08/31/24 18:36 Temperature 98.5 F 99 F Temperature Source Oral Pulse Rate 102 H 96 Respiratory Rate 18 18 Blood Pressure 163/85 H 147/72 H Blood Pressure Mean 111 97 Pulse Ox 97 96 Oxygen Delivery Method Room Air MDM <Dr. Ney Bowles MD - Last Filed: 09/01/24 14:41> MDM MDM Narrative Medical decision making narrative: Patient having problems with infusion of his antibiotics. Will have nurse treat with Cathflo Activase. If this does not work we will contact PICC line team. Lab Data Labs: Laboratory Results - last 24 hr 08/31/24 18:40 WBC 8.1 RBC 4.58 L Hgb 12.8 L Hct 38.3 L MCV 83.6 MCH 27.9 MCHC 33.4 RDW Std Deviation 39.2 RDW Coeff of Faheem 13.1 Plt Count 345 MPV 8.7 Immature Gran % (Auto) 0.200 Neut % (Auto) 73.0 H Lymph % (Auto) 12.7 L Loup % (Auto) 8.1 Eos % (Auto) 5.0 Baso % (Auto) 1.0 Absolute Neuts (auto) 5.9 Absolute Lymphs (auto) 1.03 Nucleated RBC % 0 Sodium 137 Potassium 4.2 Chloride 101 Carbon Dioxide 22.5 Anion Gap 13 BUN 25 H Creatinine 1.50 H Estim Creat Clear Calc 76.14 Est GFR (MDRD) Non-Af 54 L BUN/Creatinine Ratio 16.7 Glucose 167 H Calcium 9.4 Management Discussion w/another healthcare provider: Jalousies Installer (manager cosmetic was consulted. Concern patient does not comprehend how to infuse the antibiotics. She states she will contact the home health agency. Based on what the microfilm duplicating unit supervisor told me patient does not comprehend or understand how to infuse the antibiotics. He may need visiting nurse to administe) Treatment and Re-Evaluation :: Case management is still speaking with patient. Dr. Ruby was made aware of the patient. Plan is discharge unless case management determines otherwise. Comments:: Plan is to see if patient is able to administer the vancomycin to himself. If he is not able case management will work on placement. Patient is agreeable to this plan. <Eusebio Ruby MD - Last Filed: 08/31/24 18:32> [facility] Lab Data Labs: Laboratory Results - last 24 hr 08/31/24 18:40 WBC 8.1 RBC 4.58 L Hgb 12.8 L Hct 38.3 L MCV 83.6 MCH 27.9 MCHC 33.4 RDW Std Deviation 39.2 RDW Coeff of Faheem 13.1 Plt Count 345 MPV 8.7 Immature Gran % (Auto) 0.200 Neut % (Auto) 73.0 H Lymph % (Auto) 12.7 L Loup % (Auto) 8.1 Eos % (Auto) 5.0 Baso % (Auto) 1.0 Absolute Neuts (auto) 5.9 Absolute Lymphs (auto) 1.03 Nucleated RBC % 0 Sodium 137 Potassium 4.2 Chloride 101 Carbon Dioxide 22.5 Anion Gap 13 BUN 25 H Creatinine 1.50 H Estim Creat Clear Calc 76.14 Est GFR (MDRD) Non-Af 54 L BUN/Creatinine Ratio 16.7 Glucose 167 H Calcium 9.4 Treatment and Re-Evaluation Comments:: Plan is to see if patient is able to administer the vancomycin to himself. If he is not able case management will work on placement. Patient is agreeable to this plan. Dr. Ruby: Patient endorsed to me by Dr. Ney Bowles to see if the patient is a ble to self administer his vancomycin intravenously. According to RN, there is a deficit and patient was unable to fully administer the medication to himself. As he has already missed 2 doses, in discussion with social work, it was felt best that he should be assigned observation and placed in rehab/usp facility. I discussed patient with Dr. Mena for observation. Patient is in stable condition. Discharge Plan Dx/Rx/DC Orders Clinical Impression: Occlusion of peripherally inserted central catheter (PICC) line, Type 2 diabetes mellitus with diabetic polyneuropathy, Venous insufficiency, Hypertension, Osteomyelitis of ankle or foot, right, acute, Encounter for post surgical wound check, Adult BMI 35.0-35.9 kg/sq m, Self-care deficit Disposition Disposition: Acute Care [facility] Discharge Date/Time: 08/31/24 19:54
[2024-08-31] MEDS: Alteplase 2 MG/2 ML Vial IV ×2 (12:55)
--- NOTE | 2024-08-31 14:52 | CM.ED ---
Social work Reason for referral: non-compliant Referral source: Dr. Bowles/Paulie RN This SW received request from Paulie RN to meet with patient. Per Paulie RN, patient has a PICC line to help administer antibiotics after recent discharge from [facility] acute floor (on 08/28/24). Per Paulie RN, patient has reportedly not been flushing the PICC line as needed and per records, patient presented to [facility] ED last night, 08/30/24, for a similar issue. The [facility] agency patient was discharged with is [facility] ([place]) and Paulie RN stated the plating tank operator apprentice, Eusebio, called (ph: [phone]). Per Dr. Bowles, patient is unable to comprehend how to infuse and Dr. Bowles would be willing to write that a visiting nurse needs to administer the IV antibiotics for patient daily. This SW called Eusebio at 1250 and left a voicemail requesting a return call. Eusebio and this SW spoke at 1315 about patient's care. Per Eusebio, Eusebio reports being told that start of care would be 08/29/24 after patient discharged from [facility] on 08/28/24. Per Eusebio, patient was agreeable to education by [facility]'s RN and then patient reportedly stated feeling comfortable with administering the IV antibiotics. When Dr. Bowles's above statement was requested by this SW, Eusebio stated [facility] could provide a nurse 1 time per week, maybe 2 times per week, but not anymore frequently than that due to lack of staffing. Per Eusebio, there is a belief that patient cannot administer patient's own IV antibiotics, but patient remained adamant that patient could do it. This SW entered patient's room, introducing self and role at [facility]. Patient welcomed SW visit and ended patient's phone call. SW stated reason for the visit and patient stated [facility] nurse came on Tuesday08/29/24 as expected. Patient explained the process of infusing IV antibiotics, though patient was observed appearing confused by the process. 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 SW stated concern for patient with presenting to [facility] ED twice now after just discharging from [facility] on 08/28/24. SW gauged level of patient's interest in potentially going to a SNF and patient stated patient would consider it, but patient desired to go home from [facility] ED today due to still learning the process of IV antibiotics. Patient remained adamant that patient was going home to keep trying despite SW attempts. Dr. Bowles updated on CHN's situation and patient's above statements. Talked with NATALIA BAUER about patient's situation in order to review other possible options. This SW and NATALIA Vasquez entered patient's room, introducing selves and roles at [facility]. NATALIA Vasquez asked patient questions about patient's IV antibiotics and patient answered the same as above with this SW. Patient stated needing one more chance this evening at home and if patient was unsuccessful, patient would be agreeable to come back in for SNF placement. Patient knew by self that if patient did not get medication in patient, patient could become septic and . NATALIA Vasquez explained the vancomycin levels which patient did not appear to understand prior to explanation. Patient eventually agreeable to SNF placement if patient was unable to show success with the IV antibiotic process. Dr and nursing updated. Plan: with doctor permission, patient's home IV antibiotics being brought in for patient to show an RN how patient completes the IV antibiotic process. If patient is successful, patient discharges home. If patient is unsuccessful, patient willing to be admitted for SNF placement until the IV antibiotic process is complete. Niurka Woods, INSIDE METER TESTER, BOOSTER PUMP OILER
[2024-08-31 15:18] VITALS: BP 163/85; PULSE 102; RESP 18; TEMP 36.9; O2SAT 97
[2024-08-31] MEDS: VANCOMYCIN HCL IV (17:44)
[2024-08-31] MEDS: NORMAL SALINE 0.9% IV (17:44)
[2024-08-31 18:36] VITALS: BP 147/72; PULSE 96; RESP 18; TEMP 37.2; O2SAT 96
[2024-08-31 18:42] LABS: Absolute Lymphocyte Count 1.03 X10^3/uL (0.83-4.51); Absolute Neutrophil Count 5.9 X10^3/uL (2.0-7.7); Basophil# 0.08 X10^3/uL; Eosinophil# 0.41 X10^3/uL; Hematocrit 38.3 % (40-54); Hemoglobin 12.8 g/dL (13.0-16.5); Lymphocyte # 1.03 X10^3/ul (0.83-4.51); Lymphocyte % 12.7 % (19-41); Mean Corp Hgb Conc 33.4 g/dL (32-36); Mean Corpuscular Hgb 27.9 pg (27.0-32.0); Mean Corpuscular Volume 83.6 fL (80-94); Mean Platelet Vol. 8.7 fl (6.2-12.0); Monocyte# 0.66 X10^3/uL; Monocyte% 8.1 % (0-10); NRBC Flagged by Analyzer 0 % (0-5); Neutrophil # 5.93 X10^3/uL (2.7-7.7); Platelet Count 345 K/mm3 (150-450); RBC Distribution Width CV 13.1 % (11.6-14.6); RBC Distribution Width SD 39.2 fl (35.1-43.9); Red Blood Count 4.58 M/mm3 (4.6-6.2); White Blood Count 8.1 K/mm3 (4.4-11.0)
--- NOTE | 2024-08-31 18:44 | HP.PCM.HOS_ITS ---
HPI - General General Date of Service: 08/31/24 Chief Complaint: PICC line does not seem to be working HPI Narrative SHERRI CROWE, is [id number] male with a history of hypertension and diabetes presented [facility] ED 08/31/2024 due to concerns that his PICC line was not working. Patient was admitted on August 16 for osteomyelitis and bacteremia and just discharged on 08/28 to home with a PICC line. He presented to the ED yesterday due to concerns that was not working, 1 port was working and he was discharged home and advised to follow-up and to use that 1 port in the meantime, home health saw him today and used [facility] and were able to use both ports however there was still concerns about patient's ability to administer his own antibiotics so he came back to the ED. Attempted to have patient show that he was able to administer the vancomycin himself however he was unable to do so, therefore patient will be placed, social work did evaluate patient in the ED and recommended admission with social work and case management consults for placement as patient has now missed multiple doses of his vancomycin and still does not seem to be able to able to manage the antibiotics at home. Hospitalist contacted for admission. Patient evaluated at bedside. He reports history as above, only additional new complaint is that he had sweats again last night that had resolved prior to discharge [facility] Medical History Osteomyelitis of ankle or foot, right, acute Bacteremia MRSA (methicillin resistant staph aureus) culture positive Diabetic foot infection Anxiety Cavus deformity of right foot Chronic neck and back pain Limb weakness unexplained bruising Knee pain Diarrhea Hay fever Diabetes Arthritis Hypertension Incisional hernia, with obstruction, without gangrene Obesity Hypertension History of seizures as a child Type II diabetes mellitus Home Medications ?Medication ?Instructions ?Recorded ?Last Taken ?Type ramipril 10 mg capsule 10 mg PO DAILY BLOOD PRESSUR E 10/01/14 05/06/17 07:00 History atorvastatin 40 mg tablet 40 mg PO DAILY CHOLESTEROL 1 05/15/23 Unknown History cyclobenzaprine 10 mg tablet 10 mg PO TID PRN MUSCLE S PASMS 03/15/24 Unknown History insulin aspart U-100 100 unit/mL 8 unit subcut TIDCM D IABETES 03/15/24 Unknown History (3 mL) subcutaneous pen nifedipine 90 mg tablet,extended 90 mg PO DAILY HEART/ BLOOD PRESSURE 03/15/24 Unknown History release 24 hr tadalafil 20 mg tablet 20 mg PO DAILY PRN ERECTILE 03/15/24 Unknown History DYSFUNCTION ibuprofen-diphenhydramine citrate 2 cap PO QHS sleep a valencia 08/17/24 Unknown History 200 mg-38 mg tablet (Advil PM) insulin glargine-yfgn 100 unit/mL 20 unit (0.2 mL) sub cut QHS #0 mL 08/27/24 Unknown Rx (3 mL) subcutaneous pen vancomycin 750 mg intravenous 750 mg IV Q12H 39 days # 78 ea 08/27/24 Unknown Rx solution Allergy/AdvReac Type Severity Reaction Status Date / Time codeine Allergy Mild Hives Verified 08/31/24 11:35 dulaglutide (From Trulicity) Allergy hives Verified 08/31/24 11:35 oxycodone (From Percocet) AdvReac Nausea Verified 08/31/24 11:35 Family History Other Diabetes Heart disease Hypertension Surgical History H/O ventral hernia repair S/P ORIF (open reduction internal fixation) fracture Social History housing: apartment Smoking Status: Never smoker alcohol intake: current alcohol intake frequency: holidays/special occasions only ROS ROS Narrative General: Did have some sweats last night HENT: Denies headache, denies stuffy nose, denies sore throat EYES: Denies changes in vision Resp: Denies cough, denies shortness of breath Cardiac: Denies chest pain GI: Denies abdominal pain, denies changes in bowel, denies nausea/vomiting : Denies changes in urination Extremity: Denies swelling MSK: Denies weakness Neuro: Denies any numbness/tingling Heme: Denies any bleeding or bruising Skin: Denies rashes Psychiatric: No complaints voiced Vital Signs Vital Signs Vital Signs: 08/31/24 11:33 08/31/24 11:41 08/31/24 15:18 Temperature 98.1 F 98.1 F 98.5 F Temperature Source Oral Oral Oral Pulse Rate 106 H 106 H 102 H Respiratory Rate 18 18 18 Blood Pressure 133/71 H 133/71 H 163/85 H Blood Pressure Mean 91 91 111 Pulse Ox 98 98 97 Oxygen Delivery Method Room Air Room Air 08/31/24 18:36 Temperature 99 F Temperature Source Pulse Rate 96 Respiratory Rate 18 Blood Pressure 147/72 H Blood Pressure Mean 97 Pulse Ox 96 Oxygen Delivery Method Weight Weight: 124.4 kg Body Mass Index (BMI) 35.2 Physical Exam Narrative General: Alert, oriented, no apparent distress HEENT: Atraumatic, normocephalic Eyes: Anicteric, normal conjunctiva, extraocular movements grossly intact Neck: Supple Respiratory: Clear to auscultation bilaterally, normal respiratory effort Cardiovascular: Regular rate and rhythm GI: Nontender, protuberant Extremities: No edema Musculoskeletal: Moving all extremities Neuro: No overt focal neurological deficits Skin: Right foot and ankle wrapped Psych: Cooperative Results Lab / Micro Data 08/31/24 18:40 08/31/24 18:40 Labs: Laboratory Results - last 24 hr 08/31/24 18:40: WBC 8.1, RBC 4.58 L, Hgb 12.8 L, Hct 38.3 L, MCV 83.6, MCH 27.9, MCHC 33.4, RDW Std Deviation 39.2, RDW Coeff of Faheem 13.1, Plt Count 345, MPV 8.7, Immature Gran % (Auto) 0.200, Neut % (Auto) 73.0 H, Lymph % (Auto) 12.7 L, [place] % (Auto) 8.1, Eos % (Auto) 5.0, Baso % (Auto) 1.0, Absolute Neuts (auto) 5.9, Absolute Lymphs (auto) 1.03, Nucleated RBC % 0 Assessment & Plan Assessment/Plan (1) Self-care deficit: PLAN: Plan # Recent osteomyelitis and bacteremia of right foot -Secondary to MRSA and strep -Continue vancomycin -Social work and case management consults, plan is for placement while patient needs antibiotics - It was documented patient was supposed be on vancomycin and Merrem however discharging physician was contacted and he discussed with infectious disease and was confirmed patient only supposed to be on vancomycin so this is the only antibiotic that was continued #Type 2 diabetes mellitus -Glucose checks and sliding scale insulin - Will start at lower dose of long-acting insulin and uptitrate pending patient's glucoses to avoid hypoglycemia #Hypertension - Continue home nifedipine, may resume home ramipril pending kidney function # CKD stage III a -Appears to be at baseline -Avoid nephrotoxic agents -Daily BMPs #DVT ppx: Lovenox subcu Leena Mena MD Time spent in the patient's overall evaluation, decision-making process, review of diagnostic data, adjustment of management, discussion with other providers, nursing and ancillary staff involved in patient's care documentation, 56 Minutes Charges/Coding Visit Charges Inpatient E&M: 79303 Init Hosp L2
[2024-08-31 19:03] LABS: Anion Gap 13 (5-15); BUN 25 mg/dL (4-19); BUN/Creat Ratio 16.7 RATIO (10-20); Calcium,Total 9.4 mg/dL (7.6-11.0); Carbon Dioxide 22.5 mmol/L (21.0-32.0); Chloride 101 mmol/L (98-108); EST Glomerular Filtration Rate 54 (>60); Estimated Creatinine Clearance 76.14 ml/min (50-250); Glucose 167 mg/dL (70-99); Potassium 4.2 mmol/L (3.3-5.1); Sodium Level 137 mmol/L (133-145)
[2024-08-31 20:09] VITALS: RESP 15
[2024-08-31 20:10] VITALS: BMI 34.7
[2024-08-31 20:17] VITALS: BP 145/72; PULSE 93; RESP 18; TEMP 37.2; O2SAT 100
--- NOTE | 2024-08-31 20:56 | PCM.RX.CS ---
Consult Antibiotic Management Pharmacy has been consulted to manage selected antibiotic: Vancomycin Type of Intervention Type of Consult: Follow-up Labs Labs: Sodium 137 mmol/L (133-145) 08/31/24 18:40 Potassium 4.2 mmol/L (3.3-5.1) 08/31/24 18:40 Chloride 101 mmol/L (98-108) 08/31/24 18:40 Carbon Dioxide 22.5 mmol/L (21.0-32.0) 08/31/24 18:40 Anion Gap 13 (5-15) 08/31/24 18:40 BUN 25 mg/dL (4-19) H 08/31/24 18:40 Creatinine 1.50 mg/dL (0.70-1.20) H 08/31/24 18:40 Est GFR (MDRD) Non-Af 54 (>60) L 08/31/24 18:40 BUN/Creatinine Ratio 16.7 RATIO (10-20) 08/31/24 18:40 Glucose 167 mg/dL (70-99) H 08/31/24 18:40 Pharmacy Plan for Drug Dosing Pharmacy Plan for Drug Dosing: Pharmacy Service will continue to monitor and adjust dosing as required.
[2024-08-31] MEDS: Insulin Lispro 100 UNIT/ML INSULN.PEN SC (21:36)
[2024-08-31] MEDS: Insulin Glargine-YFGN 100 UNIT/ML Pen 15 UNIT SC (21:38)
[2024-08-31 21:47] LABS: Bedside Glucose 169 mg/dL (74-106)
[2024-08-31] MEDS: 0.9% Saline Lock 10 ML Syringe IV (22:00)
[2024-08-31] MEDS: Acetaminophen 325 MG Tablet 650 MG PO (23:08)
[2024-08-31] MEDS: MELATONIN 10 MG TABLET PO (23:08)
[2024-09-01 04:29] VITALS: BP 128/69; PULSE 95; RESP 15; TEMP 36.8; O2SAT 97
[2024-09-01 06:28] LABS: Basophil# 0.08 X10^3/uL; Eosinophil# 0.46 X10^3/uL; Eosinophils% 5.5 % (0-5); Hematocrit 37.9 % (40-54); Hemoglobin 12.6 g/dL (13.0-16.5); Mean Corp Hgb Conc 33.2 g/dL (32-36); Mean Corpuscular Hgb 28.2 pg (27.0-32.0); Mean Corpuscular Volume 84.8 fL (80-94); Mean Platelet Vol. 9.1 fl (6.2-12.0); Monocyte# 0.75 X10^3/uL; NRBC Flagged by Analyzer 0 % (0-5); Neutrophil # 5.98 X10^3/uL (2.7-7.7); Neutrophil % 72.1 % (47-70); Platelet Count 327 K/mm3 (150-450); RBC Distribution Width SD 39.8 fl (35.1-43.9); Red Blood Count 4.47 M/mm3 (4.6-6.2); White Blood Count 8.3 K/mm3 (4.4-11.0)
[2024-09-01 07:02] LABS: Anion Gap 13 (5-15); BUN 27 mg/dL (4-19); Calcium,Total 9.3 mg/dL (7.6-11.0); Carbon Dioxide 21.7 mmol/L (21.0-32.0); Chloride 102 mmol/L (98-108); Creatinine, Serum 1.42 mg/dL (0.70-1.20); EST Glomerular Filtration Rate 58 (>60); Estimated Creatinine Clearance 79.85 ml/min (50-250); Glucose 140 mg/dL (70-99); Potassium 4.1 mmol/L (3.3-5.1); Sodium Level 136 mmol/L (133-145)
[2024-09-01 07:15] LABS: Bedside Glucose 130 mg/dL (74-106)
[2024-09-01 07:16] LABS: Vancomycin, Trough Level 10.2 ug/mL (5.0-15.0)
--- NOTE | 2024-09-01 07:37 | PCM.RX.CS ---
Consult Antibiotic Management Pharmacy has been consulted to manage selected antibiotic: Vancomycin Type of Intervention Type of Consult: Follow-up Suspected Infection Suspected Infection: Osteomyelitis Prior Doses of Antibiotics Prior Doses of Antibiotics Received/Current Regimen: Vancomycin 750 mg given in ER 08/31/24 @ 7380 Labs Labs: Sodium 136 mmol/L (133-145) 09/01/24 05:48 Potassium 4.1 mmol/L (3.3-5.1) 09/01/24 05:48 Chloride 102 mmol/L (98-108) 09/01/24 05:48 Carbon Dioxide 21.7 mmol/L (21.0-32.0) 09/01/24 05:48 Anion Gap 13 (5-15) 09/01/24 05:48 BUN 27 mg/dL (4-19) H 09/01/24 05:48 Creatinine 1.42 mg/dL (0.70-1.20) H 09/01/24 05:48 Est GFR (MDRD) Non-Af 58 (>60) L 09/01/24 05:48 BUN/Creatinine Ratio 19.0 RATIO (10-20) 09/01/24 05:48 Glucose 140 mg/dL (70-99) H 09/01/24 05:48 Vancomycin Trough 10.2 ug/mL (5.0-15.0) 09/01/24 05:48 Dosing Weight Weight used for dosin kg Estimated Creatinine Clearance Estimated Creatinine Clearance: ~ 80 Goal Trough Goal Trough: 15-20 mcg/mL Pharmacy Plan for Drug Dosing Pharmacy Plan for Drug Dosing: Vancomycin 750 mg Q12H was dose at last admission, received that dose in ER last night, per notes patient has missed multiple doses. Will place back on 750 mg Q12H as had therapeutic trough previously with that dose, trough prior to 4th total scheduled dose and re-evaluate accordingly. Pharmacy Service will continue to monitor and adjust dosing as required. Follow-Up Labs Follow-Up Labs: Trough: Vancomycin Date/Time Labs Ordered Labs to be done on [date and time ordered]: 09/02/24 @ 5467
[2024-09-01 08:00] VITALS: BP 142/82; PULSE 102; RESP 16; TEMP 36.7; O2SAT 98
[2024-09-01] MEDS: Vancomycin HCl 750 MG in 0.9% Normal Saline (250mL Bag) 250 ML 250 MG IV ×2 (08:32→20:19)
[2024-09-01] MEDS: Atorvastatin Calcium 40 MG Tablet PO (08:39)
[2024-09-01] MEDS: NIFEdipine 90 MG Tablet PO (08:40)
[2024-09-01] MEDS: Enoxaparin 40 MG/0.4 ML Syringe SC (08:40)
--- NOTE | 2024-09-01 09:54 | PCM.PN.HOSP ---
Reason for Visit Reason for Visit: Diagnoses Other specified health status (08/31/24) Subjective Subjective Patient was admitted to [facility] yesterday due to the need for him to go to an extended care facility for antibiotic administration due to the fact he was unable to administer his own antibiotics at home. Patient has an osteomyelitis of his right foot. Objective Data Objective Data Vital Signs: Vital Signs Temp Pulse Resp BP Pulse Ox O2 Del Method 98.1 F 102 H 16 142/82 H 98 Room Air 09/01/24 08:00 09/01/24 08:00 09/01/24 08:00 09/01/24 08:00 09/01/24 08:00 09/01/24 08:00 Oxygen Delivery Method Room Air Weight: 122.6 kg Body Mass Index (BMI) 34.7 Intake & Output: Intake and Output for Last 24 Hours 08/30/24 08/31/24 09/01/24 23:59 23:59 23:59 Intake Total 815 / 815 200 / 200 Output Total 700 / 700 600 / 600 Balance 115 / 115 -400 / -400 Lab / Micro Data 09/01/24 05:48 09/01/24 05:48 Labs: Laboratory Results - last 24 hr 08/31/24 18:40: WBC 8.1, RBC 4.58 L, Hgb 12.8 L, Hct 38.3 L, MCV 83.6, MCH 27.9, MCHC 33.4, RDW Std Deviation 39.2, RDW Coeff of Faheem 13.1, Plt Count 345, MPV 8.7, Immature Gran % (Auto) 0.200, Neut % (Auto) 73.0 H, Lymph % (Auto) 12.7 L, [place] % (Auto) 8.1, Eos % (Auto) 5.0, Baso % (Auto) 1.0, Absolute Neuts (auto) 5.9, Absolute Lymphs (auto) 1.03, Nucleated RBC % 0, Sodium 137, Potassium 4.2, Chloride 101, Carbon Dioxide 22.5, Anion Gap 13, BUN 25 H, Creatinine 1.50 H, Estim Creat Clear Calc 76.14, Est GFR (MDRD) Non-Af 54 L, BUN/Creatinine Ratio 16.7, Glucose 167 H, Calcium 9.4 08/31/24 21:29: POC Glucose 169 H 09/01/24 05:48: WBC 8.3, RBC 4.47 L, Hgb 12.6 L, Hct 37.9 L, MCV 84.8, MCH 28.2, MCHC 33.2, RDW Std Deviation 39.8, RDW Coeff of Faheem 13.0, Plt Count 327, MPV 9.1, Immature Gran % (Auto) 0.400, Neut % (Auto) 72.1 H, Lymph % (Auto) 12.0 L, [place] % (Auto) 9.0, Eos % (Auto) 5.5 H, Baso % (Auto) 1.0, Absolute Neuts (auto) 6.0, Absolute Lymphs (auto) 1.00, Nucleated RBC % 0, Sodium 136, Potassium 4.1, Chloride 102, Carbon Dioxide 21.7, Anion Gap 13, BUN 27 H, Creatinine 1.42 H, Estim Creat Clear Calc 79.85, Est GFR (MDRD) Non-Af 58 L, BUN/Creatinine Ratio 19.0, Glucose 140 H, Calcium 9.3, Vancomycin Trough 10.2 09/01/24 06:41: POC Glucose 130 H Physical Exam Narrative alert, oriented x3, no apparent distress and healthy appearing General Appearance: cooperative, well kempt and well developed Orientation / Consciousness: awake, oriented to person, oriented to place and oriented to time HEENT normocephalic, head/scalp atraumatic and moist oral mucous membranes Eyes PERRL, EOMs intact bilaterally and conjunctivae normal Neck supple, no JVD, thyroid normal and no carotid bruits General: trachea midline Resp normal respiratory effort, no retractions, no use of accessory muscles and clear to auscultation bilaterally Auscultation: Negative for rales, rhonchi or wheezes Cardio regular rate, regular rhythm, S1 normal heart sound, S2 normal heart sound, no murmurs, no rub and no gallops GI normal to inspection, nondistended, normoactive bowel sounds, soft to palpation, non-tender and non-distended Extremity Extremity Narrative: Right lower extremity is wrapped with surgical dressing and an Eduin wrap, this was not removed to examine the patient's right foot wound Skin Skin Narrative: Right foot was wrapped with surgical dressing and an Eduin wrap, this was not removed for examination of the area Neuro oriented x3, CN's II-XII intact bilaterally and no focal motor deficits Sensorium / Orientation: awake and alert Speech: speech normal Psych affect normal Assessment & Plan Assessment/Plan (1) Osteomyelitis of foot, right, acute: PLAN: Plan 1. Right foot neuropathic wound with osteomyelitis from strep and MRSA with inability of patient to self administer antibiotics-patient will remain on vancomycin at this time, he will need to go to an extended care facility for administration of antibiotics. #2 type 2 diabetes-sliding scale insulin will be administered as needed #3 diabetic neuropathy-complicates care, management, recovery and prognosis #4 essential hypertension-patient will remain on his present medications Total clinical time spent by myself addressing patient's medical issues, reviewing all of his data, and collaborating with patient's care team: 35 minutes Charges/Coding Visit Charges Inpatient E&M: 99523 Subs Hosp L2
[2024-09-01] MEDS: Insulin Lispro 100 UNIT/ML INSULN.PEN SC ×2 (11:16→22:14)
[2024-09-01 12:03] LABS: Bedside Glucose 218 mg/dL (74-106)
--- NOTE | 2024-09-01 12:57 | CASEMGMT ---
Social Work Pt discharged from [facility] on 08/28 with home health and IV ATB. Pt had difficulty administering his own IV ATB. Pt is now agreeable to SNF placement. A list of SNF providers including quality and resource use data and consistent with the patient?s preferred geographic region, medical needs, and insurance network were provided from the [employer] Guide. Pt preferred provider is 1. [facility] and 2. [facility]. Referral sent to [facility]. SW will await determination of acceptance. SUJIT Jones
[2024-09-01 14:00] VITALS: BP 126/76; PULSE 97; RESP 16; TEMP 36.4; O2SAT 99
[2024-09-01] MEDS: Acetaminophen 325 MG Tablet 650 MG PO ×2 (14:54→23:42)
[2024-09-01 17:25] LABS: Bedside Glucose 139 mg/dL (74-106)
[2024-09-01 20:09] VITALS: BP 145/80; PULSE 99; RESP 16; TEMP 36.5; O2SAT 100
[2024-09-01] MEDS: Insulin Glargine-YFGN 100 UNIT/ML Pen 15 UNIT SC (22:13)
[2024-09-01 23:01] LABS: Bedside Glucose 162 mg/dL (74-106)
[2024-09-01] MEDS: MELATONIN 10 MG TABLET PO (23:42)
[2024-09-02 03:36] VITALS: BP 142/71; PULSE 104; RESP 16; TEMP 36.3; O2SAT 98
[2024-09-02 07:17] LABS: Bedside Glucose 139 mg/dL (74-106)
[2024-09-02 07:43] VITALS: BP 127/77; PULSE 90; RESP 16; TEMP 36.5; O2SAT 98
[2024-09-02] MEDS: Atorvastatin Calcium 40 MG Tablet PO (07:46)
[2024-09-02] MEDS: Enoxaparin 40 MG/0.4 ML Syringe SC (07:46)
[2024-09-02] MEDS: NIFEdipine 90 MG Tablet PO (07:46)
[2024-09-02 08:07] LABS: Vancomycin, Trough Level 13.7 ug/mL (5.0-15.0)
--- NOTE | 2024-09-02 08:16 | PCM.RX.CS ---
Consult Antibiotic Management Pharmacy has been consulted to manage selected antibiotic: Vancomycin Type of Intervention Type of Consult: Follow-up Suspected Infection Suspected Infection: Osteomyelitis Prior Doses of Antibiotics Prior Doses of Antibiotics Received/Current Regimen: Vancomycin 750 mg Q12H last dose given 09/01 @ 2019 Labs Labs: Sodium 136 mmol/L (133-145) 09/01/24 05:48 Potassium 4.1 mmol/L (3.3-5.1) 09/01/24 05:48 Chloride 102 mmol/L (98-108) 09/01/24 05:48 Carbon Dioxide 21.7 mmol/L (21.0-32.0) 09/01/24 05:48 Anion Gap 13 (5-15) 09/01/24 05:48 BUN 27 mg/dL (4-19) H 09/01/24 05:48 Creatinine 1.42 mg/dL (0.70-1.20) H 09/01/24 05:48 Est GFR (MDRD) Non-Af 58 (>60) L 09/01/24 05:48 BUN/Creatinine Ratio 19.0 RATIO (10-20) 09/01/24 05:48 Glucose 140 mg/dL (70-99) H 09/01/24 05:48 Vancomycin Trough 13.7 ug/mL (5.0-15.0) 09/02/24 07:15 Dosing Weight Weight used for dosin kg Estimated Creatinine Clearance Estimated Creatinine Clearance: ~ 80 Pharmacy Plan for Drug Dosing Pharmacy Plan for Drug Dosing: Vancomycin trough = 13.7, will increase to 1000 mg Q12H Pharmacy Service will continue to monitor and adjust dosing as required. Follow-Up Labs Follow-Up Labs: Trough: Vancomycin Date/Time Labs Ordered Labs to be done on [date and time ordered]: 09/03/24 @ 1930
[2024-09-02] MEDS: 0.9% Saline Lock 10 ML Syringe IV ×2 (08:32→20:10)
[2024-09-02] MEDS: 0.9% Normal Saline (100mL Bag) 100 ML 15 ML IV (08:32)
[2024-09-02] MEDS: Vancomycin IV 1,000 MG/200 ML BAG 200 MG IV ×2 (08:33→20:10)
[2024-09-02] MEDS: Vancomycin Trough/Random Due 1 LAB MC (09:34)
[2024-09-02] MEDS: Insulin Lispro 100 UNIT/ML INSULN.PEN SC ×3 (11:13→21:47)
[2024-09-02 11:48] LABS: Bedside Glucose 211 mg/dL (74-106)
--- NOTE | 2024-09-02 14:11 | PCM.PN.HOSP ---
Reason for Visit Reason for Visit: Diagnoses Other acute osteomyelitis, right ankle and foot (08/31/24) Other specified health status (08/31/24) Subjective Subjective Patient was seen and examined today, he requested Flexeril as needed and an antihistamine. I placed him on Claritin. Objective Data Objective Data Vital Signs: Vital Signs Temp Pulse Resp BP Pulse Ox O2 Del Method 97.7 F L 90 16 127/77 H 98 Room Air 09/02/24 07:43 09/02/24 07:43 09/02/24 07:43 09/02/24 07:43 09/02/24 07:43 09/02/24 09:00 Oxygen Delivery Method Room Air Weight: 122.6 kg Body Mass Index (BMI) 34.7 Intake & Output: Intake and Output for Last 24 Hours 08/31/24 09/01/24 09/02/24 23:59 23:59 23:59 Intake Total 815 / 815 2030 / 2030 1200.25 / 1200.25 Output Total 700 / 700 600 / 600 300 / 300 Balance 115 / 115 1430 / 1430 900.25 / 900.25 Lab / Micro Data 09/01/24 05:48 09/01/24 05:48 Labs: Laboratory Results - last 24 hr 09/01/24 16:38: POC Glucose 139 H 09/01/24 22:12: POC Glucose 162 H 09/02/24 06:27: POC Glucose 139 H 09/02/24 07:15: Vancomycin Trough 13.7 09/02/24 11:12: POC Glucose 211 H Physical Exam Narrative alert, oriented x3, no apparent distress and healthy appearing General Appearance: cooperative, well kempt and well developed Orientation / Consciousness: awake, oriented to person, oriented to place and oriented to time HEENT normocephalic, head/scalp atraumatic and moist oral mucous membranes Eyes PERRL, EOMs intact bilaterally and conjunctivae normal Neck supple, no JVD, thyroid normal and no carotid bruits General: trachea midline Resp normal respiratory effort, no retractions, no use of accessory muscles and clear to auscultation bilaterally Auscultation: Negative for rales, rhonchi or wheezes Cardio regular rate, regular rhythm, S1 normal heart sound, S2 normal heart sound, no murmurs, no rub and no gallops GI normal to inspection, nondistended, normoactive bowel sounds, soft to palpation, non-tender and non-distended Extremity Extremity Narrative: Right lower extremity is wrapped with surgical dressing and an Eduin wrap, this was not removed to examine the patient's right foot wound Skin Skin Narrative: Right foot was wrapped with surgical dressing and an Eduin wrap, this was not removed for examination of the area Neuro oriented x3, CN's II-XII intact bilaterally and no focal motor deficits Sensorium / Orientation: awake and alert Speech: speech normal Psych affect normal Assessment & Plan Assessment/Plan (1) Osteomyelitis of foot, right, acute: PLAN: Plan 1. Right foot neuropathic wound with osteomyelitis from strep and MRSA with inability of patient to self administer antibiotics-patient will remain on vancomycin at this time, he will need to go to an extended care facility for administration of antibiotics. Case management is working on this #2 type 2 diabetes-sliding scale insulin will be administered as needed #3 diabetic neuropathy-complicates care, management, recovery and prognosis #4 essential hypertension-patient will remain on his present medications Total clinical time spent by myself addressing patient's medical issues, reviewing all of his data, and collaborating with patient's care team: 35 minutes Charges/Coding Visit Charges Inpatient E&M: 15132 Subs Hosp L2
[2024-09-02 15:00] VITALS: BP 146/83; PULSE 96; RESP 17; TEMP 36.3; O2SAT 99
[2024-09-02] MEDS: Loratadine 10 MG Tablet PO (16:35)
[2024-09-02 17:07] LABS: Bedside Glucose 169 mg/dL (74-106)
[2024-09-02 20:04] VITALS: BP 124/63; PULSE 91; RESP 16; TEMP 36.6; O2SAT 100
[2024-09-02] MEDS: Insulin Glargine-YFGN 100 UNIT/ML Pen 15 UNIT SC (21:47)
[2024-09-02] MEDS: cycloBENZAPRine HCl 10 MG Tablet PO (23:05)
[2024-09-02] MEDS: Acetaminophen 325 MG Tablet 650 MG PO (23:05)
[2024-09-02] MEDS: MELATONIN 10 MG TABLET PO (23:05)
[2024-09-02 23:18] LABS: Bedside Glucose 187 mg/dL (74-106)
[2024-09-03 06:30] VITALS: BP 134/72; PULSE 85; RESP 18; TEMP 36.4; O2SAT 97
[2024-09-03] MEDS: Insulin Lispro 100 UNIT/ML INSULN.PEN SC ×2 (06:40→16:23)
[2024-09-03 07:15] LABS: Bedside Glucose 156 mg/dL (74-106)
--- NOTE | 2024-09-03 07:16 | PN.HOSP_ITS ---
Reason for Visit Reason for Visit: Diagnoses Other acute osteomyelitis, right ankle and foot (08/31/24) Other specified health status (08/31/24) Subjective Subjective Patient is a 59-year-old gentleman with recent diagnosis of osteomyelitis with bacteremia who was sent home with a PICC line presented back to the emergency department with complaint of his PICC line not working. Objective Data Objective Data Vital Signs: Vital Signs Temp Pulse Resp BP Pulse Ox O2 Del Method 97.6 F L 85 18 134/72 H 97 Room Air 09/03/24 06:30 09/03/24 06:30 09/03/24 06:30 09/03/24 06:30 09/03/24 06:30 09/03/24 06:30 Oxygen Delivery Method Room Air Weight: 122.6 kg Body Mass Index (BMI) 34.7 Intake & Output: Intake and Output for Last 24 Hours 09/01/24 09/02/24 09/03/24 23:59 23:59 23:59 Intake Total 2030 / 2030 1422.00 / 1422.00 1000 / 1000 Output Total 600 / 600 300 / 300 Balance 1430 / 1430 1122.00 / 1122.00 1000 / 1000 Lab / Micro Data 09/01/24 05:48 09/03/24 06:28 Labs: Laboratory Results - last 24 hr 09/02/24 06:27: POC Glucose 139 H 09/02/24 07:15: Vancomycin Trough 13.7 09/02/24 11:12: POC Glucose 211 H 09/02/24 16:31: POC Glucose 169 H 09/02/24 21:46: POC Glucose 187 H 09/03/24 06:36: POC Glucose 156 H Physical Exam Narrative GENERAL: cooperative HEENT: Atraumatic; normocephalic EYES; Anicteric, Normal Conjunctiva NECK; supple, normal thyroid, RESPIRATORY: Diminished to auscultation CARDIOVASCULAR: Regular S1 S2, GI: soft, normoactive bowel sounds, : No Renal angle tenderness; EXTREMITIES: Right foot in surgical dressing MUSCULOSKELETAL: no muscle wasting NEURO: Awake; no lateralizing signs. SKIN: No Rash PSYCH; Flat affect Assessment & Plan Assessment/Plan (1) Osteomyelitis of foot, right, acute: PLAN: Plan Patient is a 59-year-old gentleman with recent diagnosis of osteomyelitis with bacteremia who was sent home with a PICC line presented back to the emergency department with complaint of his PICC line not working. 1. Recent osteomyelitis and bacteremia of right foot -Secondary to MRSA and strep. Patient was discharged home on vancomycin and meropenem however patient could not self administer. Readmitted consult placed to case management to assist with disposition possibly to a [place] [facility] facility 2. Diabetes mellitus type II with complications including diabetic polyneuropathy -patient's oral hypoglycemics held. Placed on long acting insulin, Accu-Cheks a.c. and at bedtime and covered with sliding scale insulin 3. Hypertension ? Blood pressure controlled, home medications continued with dose adjustment as needed 4. CKD stage III a -Appears to be at baseline plan is to avoid nephrotoxic agents and monitor kidney function with daily BMPs 5. Class I obesity with BMI of 34.7 ? Weight loss advised 6. Dyslipidemia ?Patient is on statin therapy, continued at home dose 7. DVT prophylaxis ? On enoxaparin Time spent in the patient's overall evaluation, decision-making process, review of diagnostic data, adjustment of management, discussion with other providers, nursing and ancillary staff involved in patient's care documentation, 36 Minutes Charges/Coding Visit Charges Inpatient E&M: 93630 Subs Hosp L2
[2024-09-03 07:55] LABS: Anion Gap 10 (5-15); BUN 27 mg/dL (4-19); BUN/Creat Ratio 20.2 RATIO (10-20); Calcium,Total 9.2 mg/dL (7.6-11.0); Carbon Dioxide 23.7 mmol/L (21.0-32.0); Chloride 101 mmol/L (98-108); Creatinine, Serum 1.34 mg/dL (0.70-1.20); EST Glomerular Filtration Rate 62 (>60); Estimated Creatinine Clearance 84.62 ml/min (50-250); Glucose 157 mg/dL (70-99); Potassium 4.4 mmol/L (3.3-5.1); Sodium Level 134 mmol/L (133-145)
[2024-09-03 08:10] VITALS: BP 125/64; PULSE 83; RESP 18; TEMP 36.8; O2SAT 98
[2024-09-03] MEDS: 0.9% Saline Lock 10 ML Syringe IV (08:18)
[2024-09-03] MEDS: cycloBENZAPRine HCl 10 MG Tablet PO (08:18)
[2024-09-03] MEDS: Vancomycin IV 1,000 MG/200 ML BAG 200 MG IV (08:18)
[2024-09-03] MEDS: NIFEdipine 90 MG Tablet PO (08:20)
[2024-09-03] MEDS: Atorvastatin Calcium 40 MG Tablet PO (08:21)
[2024-09-03] MEDS: Enoxaparin 40 MG/0.4 ML Syringe SC (08:21)
[2024-09-03] MEDS: Loratadine 10 MG Tablet PO (08:26)
--- NOTE | 2024-09-03 09:39 | CASEMGMT ---
Social Work- SW received a message from the nit accredited legal secretary that Eusebio An from [facility] ([phone]) called regarding concerns that pt is not appropriate for OP infusion/IV. SW called Eusebio back and left a non-descript voicemail requesting a return call. NATALIA remains available to follow. SUJIT Christensen
[2024-09-03] MEDS: Meropenem 1 GM in 0.9% Normal Saline (100mL MB+) 100 ML IV (10:01)
--- NOTE | 2024-09-03 10:09 | NURSING ---
First dose of merrem given at 1000 was delayed. Pharmacy notified and per Pharmacist Bakari, skip 1400 hrs dose.
--- NOTE | 2024-09-03 11:02 | CASEMGMT ---
Discharge Planning Updates sent to [facility]. Nickie De Jesus DC Planning Asst.
--- NOTE | 2024-09-03 11:46 | CASEMGMT ---
Discharge Planning [facility]. SW updated. Nickie De Jesus DC Planning Asst.
--- NOTE | 2024-09-03 11:49 | CASEMGMT ---
Discharge Planning Referral sent to [facility]. Nickie De Jesus DC Planning Asst.
[2024-09-03 11:58] LABS: Bedside Glucose 141 mg/dL (74-106)
--- NOTE | 2024-09-03 12:16 | CASEMGMT ---
[facility] has accepted and will submit for precert. SW updated. Nickie De Jesus DC Planning Asst.
--- NOTE | 2024-09-03 13:22 | CASEMGMT ---
Social Work- [facility] declined pt. [facility] accepted. SW completed PASRR and placed on pt chart. Precert pend. SW remains available to follow. Plan: [facility]; skilled level of care SUJIT Christensen
--- NOTE | 2024-09-03 14:28 | CASEMGMT ---
[facility] has obtained auth to admit. SW updated. Nickie De Jesus DC Planning Asst.
--- NOTE | 2024-09-03 14:58 | CASEMGMT ---
Social Work Precert has been obtained.? Physician updated and pt is ready for discharge today. SW met with pt who is agreeable to discharge plans to [facility]. ? PASRR form completed in [facility] and sent along with discharge orders to [facility] via [facility].? DCA and bedside nurse notified of discharge; DCA to complete all final notifications and arrangements. Disposition:[facility], skilled level of care SUJIT Christensen
--- NOTE | 2024-09-03 15:09 | PCM.DC.SUM ---
Providers Date of Admission: 08/31/24 Date of Discharge: 09/03/24 Primary Care Physician: Dr. Gerald Tee, DO Reason For Visit: UNABLE TO RELIABLY USE PICC NEEDS ABX Diagnosis Discharge Diagnosis (1) Osteomyelitis of foot, right, acute: Status: Acute Code(s): M86.171 - Other acute osteomyelitis, right ankle and foot Plan Patient is a 59-year-old gentleman with recent diagnosis of osteomyelitis with bacteremia who was sent home with a PICC line presented back to the emergency department with complaint of his PICC line not working. 1. Recent osteomyelitis and bacteremia of right foot -Secondary to MRSA and strep. Patient was discharged home on vancomycin and meropenem however patient could not self administer. Readmitted consult placed to case management to assist with disposition possibly to a retirement facility ? Patient was discharged to retirement facility once insurance precertification was obtained 2. Diabetes mellitus type II with complications including diabetic polyneuropathy -patient's oral hypoglycemics held. Placed on long acting insulin, Accu-Cheks a.c. and at bedtime and covered with sliding scale insulin 3. Hypertension ? Blood pressure controlled, home medications continued with dose adjustment as needed ? Patient was on lisinopril and ramipril discontinued on discharge patient blood pressure did remain stable with systolic of 125 at the time of discharge 4. CKD stage III a -Appears to be at baseline plan is to avoid nephrotoxic agents and monitor kidney function with daily BMPs 5. Class I obesity with BMI of 34.7 ? Weight loss advised 6. Dyslipidemia ?Patient is on statin therapy, continued at home dose 7. DVT prophylaxis ? On enoxaparin Time spent in the patient's overall evaluation, decision-making process, review of diagnostic data, adjustment of management, discussion with other providers, nursing and ancillary staff involved in patient's care documentation, 36 Minutes Medications at Discharge Home Medications atorvastatin 40 mg tablet 40 mg PO DAILY CHOLESTEROL 03/15/24 cyclobenzaprine 10 mg tablet 10 mg PO TID PRN MUSCLE SPASMS 03/15/24 insulin aspart U-100 100 unit/mL (3 mL) subcutaneous pen 8 unit subcut TIDCM DIABETES 03/15/24 nifedipine 90 mg tablet,extended release 24 hr 90 mg PO DAILY HEART/BLOOD PRESSURE 03/15/24 tadalafil 20 mg tablet 20 mg PO DAILY PRN ERECTILE DYSFUNCTION 03/15/24 insulin glargine-yfgn 100 unit/mL (3 mL) subcutaneous pen 20 unit (0.2 mL) subcut QHS #0 mL 08/27/24 vancomycin 750 mg intravenous solution 750 mg IV Q12H 39 days #78 ea 08/27/24 acetaminophen 325 mg tablet 650 mg (2 x 325 mg) PO Q6H PRN PRN Pain 1-10 Or Fever >100.7 #0 tabs 09/03/24 albuterol sulfate 2.5 mg/3 mL (0.083 %) solution for nebulization 2.5 mg (3 mL) inhalation Q2H PRN PRN Sob &/Or Wheezing #0 mL 09/03/24 insulin lispro 100 unit/mL subcutaneous pen (Humalog KwikPen (U-100) Insulin) See Protocol subcut ACHS #0 mL 09/03/24 melatonin 10 mg sublingual tablet 10 mg PO QHS PRN PRN Insomnia #0 tabs 09/03/24 meropenem 1 gram intravenous solution 1 g IV Q8 32 days #96 ea 09/03/24 vancomycin 1 gram/200 mL in dextrose 5 % intravenous piggyback 1,000 mg IV Q12H 32 days #12,800 mL 09/03/24 Physical Exam Narrative GENERAL: cooperative HEENT: Atraumatic; normocephalic EYES; Anicteric, Normal Conjunctiva NECK; supple, normal thyroid, RESPIRATORY: Diminished to auscultation CARDIOVASCULAR: Regular S1 S2, GI: soft, normoactive bowel sounds, : No Renal angle tenderness; EXTREMITIES: Right foot in surgical dressing MUSCULOSKELETAL: no muscle wasting NEURO: Awake; no lateralizing signs. SKIN: No Rash PSYCH; Flat affect Weight / BMI Weight Weight: 122.6 kg Body Mass Index (BMI) 34.7 ABG / Lab / Microbiology Data 09/01/24 05:48 09/03/24 06:28 Laboratory: Laboratory Results - last 24 hr 09/02/24 16:31: POC Glucose 169 H 09/02/24 21:46: POC Glucose 187 H 09/03/24 06:28: Sodium 134, Potassium 4.4, Chloride 101, Carbon Dioxide 23.7, Anion Gap 10, BUN 27 H, Creatinine 1.34 H, Estim Creat Clear Calc 84.62, Est GFR (MDRD) Non-Af 62, BUN/Creatinine Ratio 20.2 H, Glucose 157 H, Calcium 9.2 09/03/24 06:36: POC Glucose 156 H 09/03/24 11:24: POC Glucose 141 H D/C Instructions Discharge Diet: 1800 Calorie Control Diet Discharge Activity: Return to Normal Activity Call your doctor if you observe: Fever of 101 or Higher, Shortness of breath, Fainting spells and Chest pain DC O2, CPAP, BIPAP Needs Home O2 Discharge instructions: No Meaningful Use Info Meaningful Use Meaningful Use Diagnoses (Choose all that apply): None applicable Ischemic Stroke Statin Dosing Therapy Reference: STATIN DOSE THERAPY REFERENCE: * Patients > 75 years receive moderate or high dose statin therapy. * Patients 75 years or YOUNGER should receive HIGH intensity statin dose unless contraindicated. You will be required to document reason for non-treatment if statin daily dose does not meet guidelines. HIGH DOSE STATIN THERAPY DAILY Atorvastatin > than or = to 40 mg Rosuvastatin > than or = to 20 mg Amlodipine + Atorvastatin > than or = to 2.5/40 mg Ezetimibe + Simvastatin 10/80 mg Simvastatin 80mg Discharge Plan Admission Admit Date/Time: 08/31/24 18:44 Attending Provider: Paco Cooper Primary Care Provider: Gerald Tee Consulting Providers: Leena Mena; Daniel Khoury Instructions Patient Instructions: ED PICC Line Care Discharge Orders/Prescriptions Prescriptions: New acetaminophen 325 mg Tablet 650 mg PO Q6H PRN PRN (Reason: Pain 1-10 Or Fever >100.7) Qty: 0 0RF albuterol sulfate 2.5 mg /3 mL (0.083 %) Solution For Nebulization 2.5 mg inhalation Q2H PRN PRN (Reason: Sob &/Or Wheezing) Qty: 0 0RF meropenem 1 gram Recon Soln 1 g IV Q8 32 Days Qty: 96 0RF insulin lispro [Humalog KwikPen Insulin] 100 unit/mL Insulin Pen See Protocol subcut ACHS Qty: 0 0RF Protocol: 3. Sliding Scale Insulin Med Dosing Condition: 150-189 mg/dl = 1 unit Condition: 190-229 mg/dl = 2 units Condition: 230-269 mg/dl = 3 units Condition: 270-309 mg/dl = 4 units Condition: 310-349 mg/dl = 5 units Condition: 350-399 mg/dl = 6 units Condition: 400-449 mg/dl = 7 units Condition: Greater than 449 call physician Protocol Text: Suggested for: - Patients on Total Daily Insulin Dose of 37-55 units - Obese, infected, or steroid patients MEDIUM DOSING ALGORITHIM vancomycin in dextrose 5 % 1 gram/200 mL Piggyback 1,000 mg IV Q12H 32 Days Qty: 49907 0RF melatonin 10 mg Tablet, Sublingual 10 mg PO QHS PRN PRN (Reason: Insomnia) Qty: 0 0RF Continued atorvastatin 40 mg tablet 40 mg PO DAILY nifedipine 90 mg tablet extended release 24hr 90 mg PO DAILY insulin aspart U-100 100 unit/mL (3 mL) insulin pen 8 unit subcut TIDCM Rx Instructions: INJECT 8 UNITS PLUS SLIDING SCALE BEFORE MEALS. TOTAL OF UP TO 14 UNITS THREE TIMES A DAY WITH MEALS. cyclobenzaprine 10 mg tablet 10 mg PO TID PRN (Reason: MUSCLE SPASMS ) tadalafil 20 mg tablet 20 mg PO DAILY PRN (Reason: ERECTILE DYSFUNCTION ) vancomycin 750 mg recon soln 750 mg IV Q12H 39 Days Qty: 78 0RF Rx Instructions: stop date 10/05/24. Dx: osteomyelitis. Weekly bmp, cbc, LFT, vanc trough and ESR. Fax to [phone]. Routine picc care per protocol. insulin glargine-yfgn 100 unit/mL (3 mL) Insulin Pen 20 unit subcut QHS Qty: 0 0RF Discontinued ramipril 10 MG capsule 10 mg PO DAILY Advil PM 200-38 mg tablet 2 cap PO QHS Other Ambulatory Orders: CBC W/Diff, Automated (QWEEK) Timeframe: 20240910 Facility: [facility] - Location: Laboratory Ordered By: Dr. Paco Cooper CBC W/Diff, Automated (QWEEK) Timeframe: 20240917 Facility: [facility] - Location: Laboratory Ordered By: Dr. Paco Cooper CBC W/Diff, Automated (QWEEK) Timeframe: 20240924 Facility: [facility] - Location: Laboratory Ordered By: Dr. Paco Cooper CBC W/Diff, Automated (QWEEK) Timeframe: 20241001 Facility: [facility] - Location: Laboratory Ordered By: Dr. Paco Cooper Comprehensive Metabolic Profil (QWEEK) Timeframe: 20240910 Facility: [facility] - Location: Laboratory Ordered By: Dr. Paco Cooper Comprehensive Metabolic Profil (QWEEK) Timeframe: 20240917 Facility: [facility] - Location: Laboratory Ordered By: Dr. Paco Cooper Comprehensive Metabolic Profil (QWEEK) Timeframe: 20240924 Facility: [facility] - Location: Laboratory Ordered By: Dr. Paco Cooper Comprehensive Metabolic Profil (QWEEK) Timeframe: 20241001 Facility: [facility] - Location: Laboratory Ordered By: Dr. Paco Cooper Vancomycin, Trough Level (QWEEK) Timeframe: 20240910 Facility: [facility] - Location: Laboratory Ordered By: Dr. Paco Cooper Vancomycin, Trough Level (QWEEK) Timeframe: 20240917 Facility: [facility] - Location: Laboratory Ordered By: Dr. Paco Cooper Vancomycin, Trough Level (QWEEK) Timeframe: 20240924 Facility: [facility] - Location: Laboratory Ordered By: Dr. Paco Cooper Vancomycin, Trough Level (QWEEK) Timeframe: 20241001 Facility: [facility] - Location: Laboratory Ordered By: Dr. Paco Cooper Referrals / Follow Up: Paco Cooper MD [Med Staff - Active Staff] - Within 2 Weeks Gerald Tee DO [Primary Care Provider] - Rob Lyons MD [Med Staff - Active Staff] - Within 2 Weeks Disposition Disposition (needs filled in before D/C Order can be placed): [facility] Facility Charges/Coding Visit Charges Inpatient E&M: 36556 Disch Hosp >30min
--- NOTE | 2024-09-03 15:25 | PCM.TXEXTCAR ---
Diet Diet Order/Speech Therapy: 08/31/24 20:09 Diet: Consistent Carb - Calorie Controlled Food consistency:: Regular Liquid Consistency:: Regular/Thin Type of Dietary Supplement:: Toni w/ B & D How many daily calories?: 2200 calorie Routine Orders/Code Status Code Status: Full Code DC O2, CPAP, BIPAP needs Home O2 Discharge instructions: No Wound(s) right upper arm: Wound Type: PICC RIGHT FOOT: Wound Type: Neuropathic/Diabetic Foot Ulcer Problem/Diagnosis (1) Osteomyelitis of foot, right, acute: Status: Acute Code(s): M86.171 - Other acute osteomyelitis, right ankle and foot Plan Patient is a 59-year-old gentleman with recent diagnosis of osteomyelitis with bacteremia who was sent home with a PICC line presented back to the emergency department with complaint of his PICC line not working. 1. Recent osteomyelitis and bacteremia of right foot -Secondary to MRSA and strep. Patient was discharged home on vancomycin and meropenem however patient could not self administer. Readmitted consult placed to case management to assist with disposition possibly to a custodial facility ? Patient was discharged to custodial facility once insurance precertification was obtained 2. Diabetes mellitus type II with complications including diabetic polyneuropathy -patient's oral hypoglycemics held. Placed on long acting insulin, Accu-Cheks a.c. and at bedtime and covered with sliding scale insulin 3. Hypertension ? Blood pressure controlled, home medications continued with dose adjustment as needed ? Patient was on lisinopril and ramipril discontinued on discharge patient blood pressure did remain stable with systolic of 125 at the time of discharge 4. CKD stage III a -Appears to be at baseline plan is to avoid nephrotoxic agents and monitor kidney function with daily BMPs 5. Class I obesity with BMI of 34.7 ? Weight loss advised 6. Dyslipidemia ?Patient is on statin therapy, continued at home dose 7. DVT prophylaxis ? On enoxaparin Time spent in the patient's overall evaluation, decision-making process, review of diagnostic data, adjustment of management, discussion with other providers, nursing and ancillary staff involved in patient's care documentation, 36 Minutes Allergies/Procedures Done in Hospital Allergies codeine Allergy (Mild, Verified 08/31/24 11:35) Hives dulaglutide (From Trulicity) Allergy (Verified 08/31/24 11:35) hives oxycodone (From Percocet) Adverse Reaction (Verified 08/31/24 11:35) Nausea Type of Care/Length of Stay Estimated LOS: More Than 30 Days Type of Care Needed: Skilled Rehab Potential: Good Prognosis: Good Additional Orders/Day of Discharge Day of Discharge: 09/03/24 Dietary and Speech Recommendations Dietitian Recommendations/Changes: Will adjust diet to 2200 calorie, consistent carbohydrate; cardiac. Will add Toni BID w/ breakfast and dinner tray. Monitor weight trends and adjust calories as indicated. Discharge Plan Admission Admit Date/Time: 08/31/24 18:44 Attending Provider: Paco Cooper Primary Care Provider: Gerald Tee Consulting Providers: Leena Mena; Daniel Khouyr Instructions Patient Instructions: ED PICC Line Care Discharge Orders/Prescriptions Prescriptions: New acetaminophen 325 mg Tablet 650 mg PO Q6H PRN PRN (Reason: Pain 1-10 Or Fever >100.7) Qty: 0 0RF albuterol sulfate 2.5 mg /3 mL (0.083 %) Solution For Nebulization 2.5 mg inhalation Q2H PRN PRN (Reason: Sob &/Or Wheezing) Qty: 0 0RF meropenem 1 gram Recon Soln 1 g IV Q8 32 Days Qty: 96 0RF insulin lispro [Humalog KwikPen Insulin] 100 unit/mL Insulin Pen See Protocol subcut ACHS Qty: 0 0RF Protocol: 3. Sliding Scale Insulin Med Dosing Condition: 150-189 mg/dl = 1 unit Condition: 190-229 mg/dl = 2 units Condition: 230-269 mg/dl = 3 units Condition: 270-309 mg/dl = 4 units Condition: 310-349 mg/dl = 5 units Condition: 350-399 mg/dl = 6 units Condition: 400-449 mg/dl = 7 units Condition: Greater than 449 call physician Protocol Text: Suggested for: - Patients on Total Daily Insulin Dose of 37-55 units - Obese, infected, or steroid patients MEDIUM DOSING ALGORITHIM vancomycin in dextrose 5 % 1 gram/200 mL Piggyback 1,000 mg IV Q12H 32 Days Qty: 42058 0RF melatonin 10 mg Tablet, Sublingual 10 mg PO QHS PRN PRN (Reason: Insomnia) Qty: 0 0RF Continued atorvastatin 40 mg tablet 40 mg PO DAILY nifedipine 90 mg tablet extended release 24hr 90 mg PO DAILY insulin aspart U-100 100 unit/mL (3 mL) insulin pen 8 unit subcut TIDCM Rx Instructions: INJECT 8 UNITS PLUS SLIDING SCALE BEFORE MEALS. TOTAL OF UP TO 14 UNITS THREE TIMES A DAY WITH MEALS. cyclobenzaprine 10 mg tablet 10 mg PO TID PRN (Reason: MUSCLE SPASMS ) tadalafil 20 mg tablet 20 mg PO DAILY PRN (Reason: ERECTILE DYSFUNCTION ) vancomycin 750 mg recon soln 750 mg IV Q12H 39 Days Qty: 78 0RF Rx Instructions: stop date 10/05/24. Dx: osteomyelitis. Weekly bmp, cbc, LFT, vanc trough and ESR. Fax to [phone]. Routine picc care per protocol. insulin glargine-yfgn 100 unit/mL (3 mL) Insulin Pen 20 unit subcut QHS Qty: 0 0RF Discontinued ramipril 10 MG capsule 10 mg PO DAILY Advil PM 200-38 mg tablet 2 cap PO QHS Other Ambulatory Orders: CBC W/Diff, Automated (QWEEK) Timeframe: 20240910 Facility: [facility] - Location: Laboratory Ordered By: Dr. Paco Cooper CBC W/Diff, Automated (QWEEK) Timeframe: 20240917 Facility: [facility] - Location: Laboratory Ordered By: Dr. Paco Cooper CBC W/Diff, Automated (QWEEK) Timeframe: 20240924 Facility: [facility] - Location: Laboratory Ordered By: Dr. Paco Cooper CBC W/Diff, Automated (QWEEK) Timeframe: 20241001 Facility: [facility] - Location: Laboratory Ordered By: Dr. Paco Cooper Comprehensive Metabolic Profil (QWEEK) Timeframe: 20240910 Facility: [facility] - Location: Laboratory Ordered By: Dr. Paco Cooper Comprehensive Metabolic Profil (QWEEK) Timeframe: 20240917 Facility: [facility] - Location: Laboratory Ordered By: Dr. Paco Cooper Comprehensive Metabolic Profil (QWEEK) Timeframe: 20240924 Facility: [facility] - Location: Laboratory Ordered By: Dr. Paco Cooper Comprehensive Metabolic Profil (QWEEK) Timeframe: 20241001 Facility: [facility] - Location: Laboratory Ordered By: Dr. Paco Cooepr Vancomycin, Trough Level (QWEEK) Timeframe: 20240910 Facility: [facility] - Location: Laboratory Ordered By: Dr. Paco Cooper Vancomycin, Trough Level (QWEEK) Timeframe: 20240917 Facility: [facility] - Location: Laboratory Ordered By: Dr. Paco Cooper Vancomycin, Trough Level (QWEEK) Timeframe: 20240924 Facility: [facility] - Location: Laboratory Ordered By: Dr. Paco Cooper Vancomycin, Trough Level (QWEEK) Timeframe: 20241001 Facility: [facility] - Location: Laboratory Ordered By: Dr. Paco Cooper Referrals / Follow Up: Paco Cooper MD [Med Staff - Active Staff] - Within 2 Weeks Gerald Tee DO [Primary Care Provider] - Rob Lyons MD [Med Staff - Active Staff] - Within 2 Weeks Disposition Disposition (needs filled in before D/C Order can be placed): Intermediate Facility
--- NOTE | 2024-09-03 15:33 | CASEMGMT ---
KO Pérez at [facility] to confirm that pt received both IV atb medications delivered to the home last admission, she confirms this. Updated ID.
[2024-09-03 15:35] VITALS: BP 129/74; PULSE 85; RESP 18; TEMP 36.4; O2SAT 98
--- NOTE | 2024-09-03 16:22 | CASEMGMT ---
Discharge Planning Discharge orders, signed med list, and transport time sent to [place] [facility]. Physicians will transport pt by wheelchair at 6p. Nursing, SW, and pt updated. Pt states that he will update his EC, [place]. Nickie De Jesus DC Planning Asst.
[2024-09-03 16:54] LABS: Bedside Glucose 221 mg/dL (74-106)
[2024-09-03 17:15] VITALS: BP 129/74; PULSE 82; RESP 18; TEMP 36.4; O2SAT 98
== END 2024-09-03 17:00 | disposition skilled nursing facility (03) ==
LOC: ED 18:31 → MS3 19:27
PROVIDERS: Emergency Medicine; Internal Medicine; Admitting Provider Internal Medicine; Emergency Provider Emergency Medicine; PCP Student in an Organized Health Care Education/Training Program; Visit Provider Internal Medicine
DX: Z45.2 Encounter for adjustment and management of vascular access device (principal); M86.171 Other acute osteomyelitis, right ankle and foot; E11.42 Type 2 diabetes mellitus with diabetic polyneuropathy; Z79.4 Long term (current) use of insulin; E11.22 Type 2 diabetes mellitus with diabetic chronic kidney disease; E11.69 Type 2 diabetes mellitus with other specified complication; N18.31 Chronic kidney disease, stage 3a; I10 Essential (primary) hypertension; Z79.2 Long term (current) use of antibiotics; Z79.899 Other long term (current) drug therapy; I12.9 Hypertensive chronic kidney disease with stage 1 through stage 4 chronic kidney disease, or unspecified chronic kidney disease; B95.62 Methicillin resistant Staphylococcus aureus infection as the cause of diseases classified elsewhere; B95.5 Unspecified streptococcus as the cause of diseases classified elsewhere; R78.81 Bacteremia; E66.811 Obesity, class 1; Z68.34 Body mass index [BMI] 34.0-34.9, adult; S91.301A Unspecified open wound, right foot, initial encounter; X58.XXXA Exposure to other specified factors, initial encounter
CPT/HCPCS: 36415; 80048; 80202; 82962; 85025; 96365; 96366; 96367; 96372; 97110; 97116; 97162; 97166; 97530; 97802; 99221; 99283; J2185; J2997; A4216; G0378

== ENCOUNTER 2024-09-14 09:30 | Emergency (ER) | payer MEDICAID, SELFPAY ==
[2024-09-14 09:31] VITALS: BP 142/84; PULSE 82; RESP 16; TEMP 37.3; O2SAT 97; BMI 35.2
--- NOTE | 2024-09-14 10:17 | CT_ITS ---
PROCEDURE: CT LEFT LOWER EXTREMITY WITHOUT CONTRAST 09/14/2024 REASON FOR EXAM: ABNORMAL XRAY TECHNIQUE: Contiguous axial scans of mm slice thicknesses. Sagittal and coronal reconstruction images were obtained. One or more dose reduction techniques were used (e.g., automated exposure control, adjustment of mA and/or kv according to patient size, use of iterative reconstruction technique). RADIATION DOSE SUMMARY: DLP: 610.89 MGycm COMPARISON: NO RELEVANT PRIOR FINDINGS: An intramedullary lucent area is seen in the diametaphysis of the distal femur measuring 9.5 times 3.5 cm. An area of irregular sclerosis and lucencies is seen internally primarily confined to the distal metaphysis measuring 6.7 x 2.7 cm. There is a narrow zone of transition.. No periosteal reaction. No soft tissue mass. No significant endosteal scalloping. 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 Consider MRI for further evaluation. Reading Location: [facility]
[2024-09-14 11:38] VITALS: BP 141/85; PULSE 102; RESP 16; TEMP 36.6; O2SAT 100
--- NOTE | 2024-09-14 11:49 | ED.VIS.LOWEX ---
HPI History of Present Illness Chief Complaint: Lower Extremity Injury Informant: patient Narrative Narrative: Patient is a 59-year-old male with history of prior left total knee arthroplasty in addition to diabetes and osteomyelitis of the right foot currently receiving antibiotics via PICC line and the [place] [facility]. He notes over the past week or so he notes his left knee has been buckling more. He has been doing physical therapy. He had an x-ray performed at his nursing facility of the left knee which showed lobulated arthrosclerotic lesion of the femoral metastasis concerning for bone infarct. He was sent to the ER for emergent CT of the knee. Patient follows with Dr. Eduardo Root for orthopedics (that who did his left knee surgery per the patient's). He states his knee is not actually hurting him. He denies any swelling of the knee. Denies any new fever or chills. No other complaints or concerns at this time. [facility] Medical History Type 2 diabetes mellitus with foot ulcer Ulcer of left foot with fat layer exposed Alcohol abuse Pancreatitis Seizures Osteomyelitis of ankle or foot, right, acute MRSA (methicillin resistant staph aureus) culture positive Bacteremia Diabetic foot infection Anxiety Cavus deformity of right foot Chronic neck and back pain Limb weakness unexplained bruising Knee pain Diarrhea Hay fever Diabetes Arthritis Hypertension Incisional hernia, with obstruction, without gangrene Obesity Hypertension History of seizures as a child Type II diabetes mellitus Home Medications ?Medication ?Instructions ?Recorded ?Last Taken ?Type atorvastatin 40 mg tablet 40 mg PO DAILY CHOLESTEROL 03/15/24 Unknown History cyclobenzaprine 10 mg tablet 10 mg PO TID PRN MUSCLE SPASMS 03/15/24 Unknown History insulin aspart U-100 100 unit/mL 8 unit subcut TIDCM DIABETES 03/15/24 Unknown History (3 mL) subcutaneous pen nifedipine 90 mg tablet,extended 90 mg PO DAILY HEART/BLOOD PRESSURE 03/15/24 Unknown History release 24 hr tadalafil 20 mg tablet 20 mg PO DAILY PRN ERECTILE 03/15/24 Unknown History DYSFUNCTION insulin glargine-yfgn 100 unit/mL 20 unit (0.2 mL) subcut QHS #0 mL 08/27/24 Unknown Rx (3 mL) subcutaneous pen vancomycin 750 mg intravenous 750 mg IV Q12H 39 days #78 ea 08/27/24 Unknown Rx solution acetaminophen 325 mg tablet 650 mg (2 x 325 mg) PO Q6H PRN PRN 09/03/24 Unknown Rx Pain 1-10 Or Fever >100.7 #0 tabs albuterol sulfate 2.5 mg/3 mL 2.5 mg (3 mL) inhalation Q2H PRN 09/03/24 Unknown Rx (0.083 %) solution for nebulization PRN Sob &/Or Wheezing #0 mL insulin lispro 100 unit/mL See Protocol subcut ACHS #0 mL 09/03/24 Unknown Rx subcutaneous pen (Humalog KwikPen (U-100) Insulin) melatonin 10 mg sublingual tablet 10 mg PO QHS PRN PRN Insomnia #0 09/03/24 Unknown Rx tabs meropenem 1 gram intravenous 1 g IV Q8 32 days #96 ea 09/03/24 Unknown Rx solution vancomycin 1 gram/200 mL in 1,000 mg IV Q12H 32 days #12,800 mL 09/03/24 Unknown Rx dextrose 5 % intravenous piggyback Allergy/AdvReac Type Severity Reaction Status Date / Time codeine Allergy Mild Hives Verified 08/31/24 11:35 dulaglutide (From Trulicity) Allergy hives Verified 08/31/24 11:35 oxycodone (From Percocet) AdvReac Nausea Verified 08/31/24 11:35 Family History Other Diabetes Heart disease Hypertension Surgical History History of cholecystectomy H/O ventral hernia repair S/P ORIF (open reduction internal fixation) fracture Social History housing: apartment Smoking Status: Never smoker alcohol intake: current alcohol intake frequency: holidays/special occasions only ROS ROS ED Constitutional Constitutional ED: Denies chills or fever(s) Cardiovascular Cardiovascular: Denies chest pain Respiratory/Chest Respiratory/Chest: Denies cough Gastrointestinal Gastrointestinal: Denies nausea or vomiting Musculoskeletal Musculoskeletal: Reports other Details: Osteomyelitis of the right foot with prior partial amputation. Buckling of the left knee. Integumentary Denies rash Neurologic Neurologic: Denies paresthesias or weakness Psychiatric Psychiatric: Denies anxiety or depression EXAM Physical Exam Const Vital Signs: 09/14/24 09:31 09/14/24 11:38 Temperature 99.1 F 97.9 F Temperature Source Oral Pulse Rate 82 102 H Respiratory Rate 16 16 Blood Pressure 142/84 H 141/85 H Blood Pressure Mean 103 103 Pulse Ox 97 100 Oxygen Delivery Method Room Air Positive well nourished and well developed General Appearance ED: well developed and NAD HEENT Reports moist mucous membranes Chest Wall inspection of chest normal Resp normal respiratory effort and clear to auscultation bilaterally Cardio regular rate and regular rhythm Extremity Extremity Narrative: Normal range of motion of the left knee. No effusion present. No associated warmth or skin changes. There is an anterior midline scar consistent with prior left TKA. No associated tenderness. Extensor mechanism is intact. General Extremety ED: Negative for edema General Extremity: Negative for edema Neuro oriented x3 Sensorium / Orientation: alert Motor Exam: general weakness Psych mental status grossly normal Skin Lesions: no lesions Rashes: no rashes MDM MDM MDM Narrative Medical decision making narrative: Patient evaluated for abnormal left knee x-ray. X-ray result is reviewed from the outside facility for concerns of bone infarct. CT of the knee is obtained which shows findings concerning for enchondroma. He is relatively asymptomatic with no sniffing and tenderness or abnormality of the knee on exam. He does not have short arc range of motion pain. He actually has no pain at his left knee. Case is discussed with his orthopedist, Dr. Root. He states he can use knee immobilizer as needed for buckling and follow-up in the office. Patient states he is mostly in a wheelchair and does not feel that he needs a knee immobilizer but will order a knee brace per the recommendation of his PT. Also counseled he could use an Eduin wrap. Is given return precautions. Discharged home in stable condition. Radiography Diagnostic Testing: Clinical Impression(s) from Imaging Studies Lower Extremity CT 09/14/24 10:17 IMPRESSION: Mixed lucent and sclerotic lesion in the distal femur concerning for enchondroma. Consider MRI for further evaluation. Reading Location: [id number] Discharge Plan Triage Chief Complaint: Lower Extremity Injury ED Provider: Lenora Steele Dx/Rx/DC Orders Clinical Impression: Abnormal computed tomography of lower extremity Prescriptions: No Action atorvastatin 40 mg tablet 40 mg PO DAILY nifedipine 90 mg tablet extended release 24hr 90 mg PO DAILY insulin aspart U-100 100 unit/mL (3 mL) insulin pen 8 unit subcut TIDCM Rx Instructions: INJECT 8 UNITS PLUS SLIDING SCALE BEFORE MEALS. TOTAL OF UP TO 14 UNITS THREE TIMES A DAY WITH MEALS. cyclobenzaprine 10 mg tablet 10 mg PO TID PRN (Reason: MUSCLE SPASMS ) tadalafil 20 mg tablet 20 mg PO DAILY PRN (Reason: ERECTILE DYSFUNCTION ) vancomycin 750 mg recon soln 750 mg IV Q12H 39 Days Qty: 78 0RF Rx Instructions: stop date 10/05/24. Dx: osteomyelitis. Weekly bmp, cbc, LFT, vanc trough and ESR. Fax to [phone]. Routine picc care per protocol. insulin glargine-yfgn 100 unit/mL (3 mL) Insulin Pen 20 unit subcut QHS Qty: 0 0RF acetaminophen 325 mg Tablet 650 mg PO Q6H PRN PRN (Reason: Pain 1-10 Or Fever >100.7) Qty: 0 0RF albuterol sulfate 2.5 mg /3 mL (0.083 %) Solution For Nebulization 2.5 mg inhalation Q2H PRN PRN (Reason: Sob &/Or Wheezing) Qty: 0 0RF meropenem 1 gram Recon Soln 1 g IV Q8 32 Days Qty: 96 0RF insulin lispro [Humalog KwikPen Insulin] 100 unit/mL Insulin Pen See Protocol subcut ACHS Qty: 0 0RF Protocol: 3. Sliding Scale Insulin Med Dosing Condition: 150-189 mg/dl = 1 unit Condition: 190-229 mg/dl = 2 units Condition: 230-269 mg/dl = 3 units Condition: 270-309 mg/dl = 4 units Condition: 310-349 mg/dl = 5 units Condition: 350-399 mg/dl = 6 units Condition: 400-449 mg/dl = 7 units Condition: Greater than 449 call physician Protocol Text: Suggested for: - Patients on Total Daily Insulin Dose of 37-55 units - Obese, infected, or steroid patients MEDIUM DOSING ALGORITHIM vancomycin in dextrose 5 % 1 gram/200 mL Piggyback 1,000 mg IV Q12H 32 Days Qty: 90865 0RF melatonin 10 mg Tablet, Sublingual 10 mg PO QHS PRN PRN (Reason: Insomnia) Qty: 0 0RF Primary Care Provider: Gerald Tee Referrals: Gerald Tee DO [Primary Care Provider] - Eduardo Root MD [Med Staff - Active Staff] - Activity Restrictions/Additional Instructions: Please follow-up with orthopedics outpatient. If your knee continues to buckle you may wear a knee brace or immobilizer to help with that prevent falls. The CT did not show bone infarct but did show findings consistent with enchondroma which does not need emergent follow-up. Please follow-up outpatient. Return if you further concerns Print Language: Kyrgyz Disposition Disposition: Home, Self Care
== END 2024-09-14 11:57 | disposition skilled nursing facility (03) ==
PROVIDERS: Emergency Provider Emergency Medicine; PCP Student in an Organized Health Care Education/Training Program; Visit Provider Emergency Medicine
DX: R93.6 Abnormal findings on diagnostic imaging of limbs (principal); E11.9 Type 2 diabetes mellitus without complications; Z79.4 Long term (current) use of insulin; I10 Essential (primary) hypertension; Z96.652 Presence of left artificial knee joint; Z79.899 Other long term (current) drug therapy
CPT/HCPCS: 73700; 99284